=== PATIENT | female | born 1955 | race Caucasian/White ===

== ENCOUNTER 2020-05-28 15:54 | Outpatient (REF) | payer OTHER, SELFPAY ==
[2020-05-28 17:04] LABS: Hematocrit 42.5 % (37-47); Mean Corpuscular HGB Conc 32.9 g/dl (31.0-35.0); Mean Corpuscular Hemoglobin 29.7 pg (27.0-33.0); Mean Platelet Volume 11.9 fL (9.4-12.3); Platelet Count 345 X10*3/uL (160-400); Red Blood Count 4.72 X10*6/uL (4.20-5.50); White Blood Count 10.4 X10*3/uL (4.8-10.8)
[2020-05-28 17:31] LABS: Anion Gap 12 (12-20); Blood Urea Nitrogen 10 mg/dL (9-16); Calcium 9.7 mg/dL (8.4-10.2); Carbon Dioxide 25 mmol/L (22-29); Chloride 107 mmol/L (96-108); Estimated Glomerular Filt Rate > 60; Glucose Random 83 mg/dL (60-115); Magnesium 2.2 mg/dL (1.6-2.6); Potassium 4.1 mmol/l (3.3-5.1); Sodium 140 mmol/L (135-145)
[2020-05-28 17:53] LABS: TSH reflex Free T4 8.71 mIU/mL (0.32-4.0)
[2020-05-28 18:26] LABS: Free T4 (Free Thyroxine) 0.91 ng/dL (0.71-1.85)
== END 2020-05-28 15:55 | disposition home or self-care (01) ==
LOC: HO.LAB 15:54
PROVIDERS: Internal Medicine; PCP Nurse Practitioner Family; Visit Provider Internal Medicine
DX: Z20.828 Contact with and (suspected) exposure to other viral communicable diseases (principal); R53.81 Other malaise; R53.83 Other fatigue
CPT/HCPCS: 36415; 80048; 83735; 84439; 84443; 85027; 87635

== ENCOUNTER 2020-09-04 08:41 | Outpatient (REF) | payer OTHER, SELFPAY ==
[2020-09-04 08:56] LABS: COVID-19 Test Positive (Negative); IDNOW Serial# 55D5AD1C
== END 2020-09-04 08:42 | disposition home or self-care (01) ==
LOC: HO.EMPCOV 08:41
PROVIDERS: Visit Provider Internal Medicine
DX: Z20.822 Contact with and (suspected) exposure to COVID-19 (principal)
CPT/HCPCS: 36415; 87635; C9803

== ENCOUNTER 2020-11-25 07:27 | Outpatient (REF) | payer OTHER, SELFPAY ==
[2020-11-25 10:49] LABS: Glucose Urine UA NEG (NEG); Leukocyte Esterase Urine NEG (NEG); Nitrite Urine NEG (NEG); PH 5.5 (5.0-8.0); Specific Gravity - Urine 1.025 (1.005-1.025); Urine Blood 1+ (NEG); Urine Ketones NEG (NEG); Urine Protein NEG (NEG-TRACE)
[2020-11-25 11:10] LABS: Appearance Urine CLEAR; Color Urine YELLOW
[2020-11-25 11:44] LABS: RBC Urine 0 /HPF (0); Squamous Epithelial Cell Urine 1+ /LPF
== END 2020-11-25 07:28 | disposition home or self-care (01) ==
LOC: HO.10HDL 07:27
PROVIDERS: Visit Provider Nurse Practitioner Family
DX: R30.0 Dysuria (principal)
CPT/HCPCS: 81001; 81003

== ENCOUNTER 2021-02-03 07:48 | Day surgery (SDC) | payer OTHER, SELFPAY ==
[2021-01-28 16:29] VITALS: BMI 28.3
--- NOTE | 2021-01-29 14:55 | MHC.SHP ---
Pre-Procedural Eval Section A The patient is an INPATIENT: No The History & Physical has been completed within 30 days and I have reviewed it.: Yes Section B Chief Complaint: Cataract Right Eye Allergies: Allergies Allergy/AdvReac Type Severity Reaction Status Date / Time gluten [Gluten] Allergy Severe Gastrointestinal Verified 01/28/21 16:28 Upset Penicillins Allergy Intermediate Rash Verified 01/28/21 16:28 Sulfa (Sulfonamide Allergy Intermediate Rash Verified 01/28/21 16:28 Antibiotics) Codeine Phosphate Allergy Intermediate Nausea Uncoded 01/28/21 16:28 Plan Diagnosis/Plan: Unchanged I have reviewed the history and physical and performed a pertinent physical examination on my patient. No changes have occurred unless specified.
--- NOTE | 2021-01-31 15:05 | P.CONAN_ITS ---
Documented by User: Selin Madonan 01/31/21 15:05 HPI - Anesthesia Eval Consult details Narrative: 65yo F for Right Cataract Extraction IOL Insertion PCP cleared No previous cataract on record PMFSH Past Medical History Medical History Anxiety Celiac disease COVID-19 vaccine series completed GERD (gastroesophageal reflux disease) Low back pain Restless leg syndrome Surgical History Surgical History History of back surgery Hx of appendectomy Hx of foot surgery Hx of tonsillectomy Social History Social History Patient Tobacco Use Status: Former Tobacco user Quit Date: 1994 Use of substances other than those prescribed or required for medical reasons: No Are you DNR?: No Advance Directives: No Advance Directives Information Provided: No Advance Directives on File: No Meds Allergies Allergy/AdvReac Type Severity Reaction Status Date / Time gluten [Gluten] Allergy Severe Gastrointestinal Verified 01/28/21 16:28 Upset Penicillins Allergy Intermediate Rash Verified 01/28/21 16:28 Sulfa (Sulfonamide Allergy Intermediate Rash Verified 01/28/21 16:28 Antibiotics) Codeine Phosphate Allergy Intermediate Nausea Uncoded 01/28/21 16:28 Home Medications Medication Instructions Recorded Confirmed Last Taken Type ibuprofen 1 tab PO TID PRN 01/28/21 01/28/21 Unknown History latanoprost 1 drp OPHTHALMIC (EYE) BEDTIME 01/28/21 01/28/21 Unknown History levothyroxine [Synthroid] 1 tab PO DAILY 01/28/21 01/28/21 02/03/21 History lidocaine patch TOPICAL 01/28/21 Unknown History lorazepam 1 tab PO BID PRN 01/28/21 01/28/21 Unknown History pramipexole 0.5 tab PO BEDTIME 01/28/21 01/28/21 02/03/21 History Exam Exam Date and Time: January 31, 2021 1505 Height,Weight and Vital Signs: Height 5 ft 4 in Weight 74.843 kg Assessment and Plan Assessment Anesthesia Assessment: Chart Reviewed Documented by User: Gael Panda 02/03/21 09:47 [facility] Past Medical History Medical History Anxiety Celiac disease COVID-19 vaccine series completed GERD (gastroesophageal reflux disease) Low back pain Restless leg syndrome Surgical History Surgical History History of back surgery Hx of appendectomy Hx of foot surgery Hx of tonsillectomy Social History Social History Patient Tobacco Use Status: Former Tobacco user Quit Date: 1994 Use of substances other than those prescribed or required for medical reasons: No Are you DNR?: No Advance Directives: No Advance Directives Information Provided: No Advance Directives on File: No Meds Allergies Allergy/AdvReac Type Severity Reaction Status Date / Time gluten [Gluten] Allergy Severe Gastrointestinal Verified 01/28/21 16:28 Upset Penicillins Allergy Intermediate Rash Verified 01/28/21 16:28 Sulfa (Sulfonamide Allergy Intermediate Rash Verified 01/28/21 16:28 Antibiotics) Codeine Phosphate Allergy Intermediate Nausea Uncoded 01/28/21 16:28 Home Medications Medication Instructions Recorded Confirmed Last Taken Type ibuprofen 1 tab PO TID PRN 01/28/21 01/28/21 Unknown History latanoprost 1 drp OPHTHALMIC (EYE) BEDTIME 01/28/21 01/28/21 Unknown History levothyroxine [Synthroid] 1 tab PO DAILY 01/28/21 01/28/21 02/03/21 History lidocaine patch TOPICAL 01/28/21 Unknown History lorazepam 1 tab PO BID PRN 01/28/21 01/28/21 Unknown History pramipexole 0.5 tab PO BEDTIME 01/28/21 01/28/21 02/03/21 History Exam Airway Mallampati Class: II TM Dist: >3cm Neck ROM: Full Loose/Missing/Broken Teeth: No Heart: rrr+[id number] Lungs: cta b/l Assessment and Plan Assessment Anesthesia Assessment: Anesthesia Plan Discussed, PAT Visit and Chart Reviewed Final Anesthetic Review NPO: Yes ASA Class: II Final Preanesthetic Review: No Changes in Pt Med Stat, Meds/Allgs Chart Reviewed, Consent Obtained/Reviewed and Anes Risks/Benef Reviewed Patient Risk: Low Procedure Risk: Low Assessment/Block/Sedation in SS: Assess/Block/Sedation-SS Anesthetic Plan Anesthetic Plan: MAC: and Agree w/ Assess. and Plan Disposition: Standard PACU
[2021-02-03 09:15] VITALS: BP 125/74; PULSE 76; RESP 16; TEMP 36.9; O2SAT 96
[2021-02-03] MEDS: Lactated Ringers 500 ML 50 ML IV (09:31)
[2021-02-03] MEDS: Tetracaine HCl/PF 0.5% Oph Sol 4 ML DROPS 1 DROP EYE-RIGHT (09:31)
[2021-02-03] MEDS: Tropicamide 1 % Ophth Sol 3 ML BTL 1 DROP EYE-RIGHT ×3 (09:33→09:46)
[2021-02-03] MEDS: Phenylephrine HCL 2.5% Oph SoL 2 ML BOTTLE 1 DROP EYE-RIGHT ×3 (09:38→09:48)
--- NOTE | 2021-02-03 10:11 | HO.PNOPHT ---
Ophthalmology Procedure Procedure Date of Service: 02/03/21 Ophthalmology Viscoelastic: Healjin Briceñot Dual Pack Pro Ophthalmology Lenses: TECHAN [id number] (24) Procedure Notes: PREOPERATIVE DIAGNOSIS: Decreased visual acuity right eye secondary to cataract POSTOPERATIVE DIAGNOSIS: Same PROCEDURE: Right cataract extraction with intraocular lens insertion SURGEON: Alberto Tran M.D. ANESTHESIA: Topical/MAC ESTIMATED BLOOD LOSS: None COMPLICATIONS: None After obtaining informed consent, the patient was brought to the operating room suite and placed in the supine position. After adequate sedation per anesthesia, topical drops of Tetracaine were given to the right eye. The eye was then prepped and draped in the usual sterile fashion. The operating room microscope was then positioned over the operative eye and a lid speculum placed. A paracentesis was created. Viscoelastic was then instilled into the anterior chamber. A three plane incision was then created temporally, utilizing a 2.85 mm keratome. Capsulotomy forceps were then utilized to create a circular tear capsulotomy. Hydrodissection and hydrodelineation were carried out until adequate mobilization of the nucleus occurred. Phacoemulsification was then utilized to remove the dense central nucleus followed by removal of the cortical material utilizing the automated aspiration irrigation unit. Viscoelastic was instilled into the posterior capsular bag followed by placement of a posterior chamber intraocular lens without difficulty. The residual Viscoelastic was then removed utilizing the automated IA machine. The wound was checked and found to be watertight. The patient tolerated the procedure well and the lid speculum was removed. Intracameral injection of Vigamox 0.1 mL followed by a subtenon injection of Kenalog-40 0.2 mL were administered. The patient will be seen in the a.m.
[2021-02-03 10:32] VITALS: BP 104/77; PULSE 83; RESP 16; TEMP 37; O2SAT 95
[2021-02-03] MEDS: ondansetron HCL 4 MG/2 ML VIAL IVPUSH (10:40)
[2021-02-03 10:45] VITALS: PULSE 79; RESP 16; TEMP 37; O2SAT 95
[2021-02-03 10:48] VITALS: BP 114/76; PULSE 80; RESP 16; O2SAT 97
== END 2021-02-03 10:50 | disposition home or self-care (01) ==
PROVIDERS: PCP Nurse Practitioner Family; Visit Provider Ophthalmology
PROC: (CPT 66985; principal; 2021-02-03 11:00)
DX: H25.11 Age-related nuclear cataract, right eye (principal); Z88.0 Allergy status to penicillin; Z88.2 Allergy status to sulfonamides
CPT/HCPCS: 66984; J2250; J2405; J3010; J3300; V2632

== ENCOUNTER → 2021-03-06 08:03 | Outpatient (BNVA) | payer OTHER, SELFPAY | PROVIDERS: PCP Nurse Practitioner Family; Visit Provider Physician Assistant | DX: Z12.11 Encounter for screening for malignant neoplasm of colon (principal) ==

== ENCOUNTER 2021-03-13 09:08 | Inpatient (IN) | payer OTHER, SELFPAY ==
[2021-03-13] VITALS (8 sets, daily range): BP systolic 119–129; BP diastolic 73–85; PULSE 68–83; RESP 13–22; TEMP 36.8–36.9; O2SAT 96–98; BMI 29.7
--- NOTE | 2021-03-13 | ECG_ITS ---
Test Reason : CHEST PAIN Blood Pressure : / mmHG Vent. Rate : 081 BPM Atrial Rate : 081 BPM P-R Int : 154 ms QRS Dur : 074 ms QT Int : 374 ms P-R-T Axes : 059 035 046 degrees QTc Int : 434 ms Normal sinus rhythm with sinus arrhythmia Normal ECG When compared with ECG of 25-OCT-2018 16:53, No significant change was found Referred By: Generic ED Physician Electronically Signed By:AREN PATHAK MD
--- NOTE | ~2021-03-13 | XR_ITS ---
EXAMINATION: XR CHEST CLINICAL INFORMATION: Chest pain. COMPARISON: Chest 09/09/2019 TECHNIQUE: Frontal view of the chest was obtained. FINDINGS: No significant abnormality is noted involving the heart, lungs, mediastinum, bony thorax or soft tissues. XR/XR chest 1V IMPRESSION: Unremarkable chest examination.
--- NOTE | 2021-03-13 09:38 | ED.CHESTPAIN ---
HPI - Chest Pain General Chief Complaint: Chest Pain Stated Complaint: chest pain Time Seen by Provider: 03/13/21 09:37 History of Present Illness HPI narrative: Patient is a 65-year-old female presents today with having chest pain going to her neck with sore shortness of breath. The pain is pressure-like. It is worse with going up the stairs. Improved with rest. Patient never had any kind of cardiac risk stratification done in the past. No history of diabetes. No history of hypertension. No history of smoking. No history of [place]. No history of recent stress test. No family history of coronary artery disease. No history of recreational drug use. Patient is from home. Pains been on and off since Wednesday. Related Data Home Medications Medication Instructions Recorded Confirmed ibuprofen 1 tab PO TID PRN 01/28/21 03/13/21 latanoprost 1 drp OPHTHALMIC (EYE) BEDTIME 01/28/21 03/13/21 levothyroxine [Synthroid] 1 tab PO DAILY 01/28/21 03/13/21 lidocaine patch TOPICAL 01/28/21 03/13/21 lorazepam 1 tab PO BID PRN 01/28/21 03/13/21 pramipexole 0.5 tab PO BEDTIME 01/28/21 03/13/21 omeprazole 20 mg capsule,delayed 20 mg PO DAILY 03/06/21 03/13/21 release Previous Rx's Medication Instructions Recorded bisacodyl 5 mg tablet,delayed 10 mg PO ONCE 1 Days #2 tab 03/06/21 release polyethylene glycol 3350 17 238 g PO ONCE 1 Days #238 g 03/06/21 gram/dose oral powder Allergies Allergy/AdvReac Type Severity Reaction Status Date / Time gluten [Gluten] Allergy Severe Gastrointestinal Verified 03/13/21 08:31 Upset Penicillins Allergy Intermediate Rash Verified 03/13/21 08:31 Sulfa (Sulfonamide Allergy Intermediate Rash Verified 03/13/21 08:31 Antibiotics) Codeine Phosphate Allergy Intermediate Nausea Uncoded 03/13/21 08:31 Review of Systems Review of Systems: Positive chest pain Positive shortness of breath No nausea no vomiting All systems reviewed otherwise negative PMFSH Past Medical History Attestation statement: The following information was validated with the patient. Medical History Anxiety Celiac disease COVID-19 vaccine series completed GERD (gastroesophageal reflux disease) Hypothyroidism Low back pain Restless leg syndrome Surgical History History of back surgery Hx of appendectomy Hx of foot surgery Hx of right cataract extraction Hx of tonsillectomy Family History Family History Daughter Celiac disease Social History Social History Household Members Other:: single- 3 kids Alcohol intake: current Alcohol intake frequency: a few times a month Alcohol type: hard liquor Patient Tobacco Use Status: Former Tobacco user Quit Date: 1994 Use of substances other than those prescribed or required for medical reasons: No Advance Directives: Yes Advance Directives Information Provided: Yes Advance Directives on File: No 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 Oriented X3. No acute distress. Eyes: Pupils equal, round and reactive to light. ENT: Pharynx normal. Neck: Normal inspection. Neck supple. No lymph nodes noted. No crepitus CVS: Normal heart rate and rhythm. Pulses normal. Normal S1 and S2 Respiratory: No respiratory distress. Breath sounds normal. No Wheezing. No rales Abdomen: Soft and nontender. No rigidity. No distention. good BS x4 Skin: Skin warm and dry. Normal skin color. Normal skin turgor. Extremities: No lower extremity edema. Neurovascular intact to all extremities. No Lacerations. No Rash Neuro: Oriented X 3. No motor deficit. No sensory deficit. Moving all extermities. No slurred speech MDM - Chest Pain MDM Narrative Medical decision making narrative: Patient's cardiac enzyme was negative. But history consistent with having unstable angina having chest pain that radiates to her neck and also feeling short of breath feeling sweaty. Patient is currently chest pain-free. Patient's case discussed with cardiology. Agree with plan of admission. Case discussed with hospitalist team. Agree with plan of giving aspirin. Currently in guarded condition. Differential Diagnosis Differential diagnosis: Likely unstable angina pectoris Medical Records Data Attestation: I reviewed the patient's medical records. Lab Data Attestation: I reviewed the patient's lab results. Result diagrams: 03/13/21 09:57 03/13/21 09:57 Labs: Lab Results 03/13/21 03/13/21 03/13/21 Range/Units 09:57 09:57 09:57 WBC 7.6 (4.8-10.8) X10*3/uL RBC 4.82 (4.20-5.50) X10*6/uL Hgb 13.9 (12.0-16.0) g/dl Hct 42.6 (37-47) % MCV 88.4 (80-98) fL MCH 28.8 (27.0-33.0) pg MCHC 32.6 (31.0-35.0) g/dl RDW 14.0 (11.0-16.0) % Plt Count 310 (160-400) X10*3/uL MPV 11.3 (9.4-12.3) fL Immature Gran % (Auto) 0.4 (0.0-0.4) % Neut % (Auto) 70.4 (45-73) % Lymph % (Auto) 19.8 L (20-40) % [place] % (Auto) 7.5 (2-11) % Eos % (Auto) 1.2 (0-4) % Baso % (Auto) 0.7 (0-2) % Lymph # (Auto) 1.5 (1.2-4.9) X10*3/uL [place] # (Auto) 0.6 (0.1-1.2) X10*3/uL Eos # (Auto) 0.1 (0.0-0.4) X10*3/uL Baso # (Auto) 0.1 (0.0-0.2) X10*3/uL Abs Immat Gran (auto) 0.03 (0.00-0.03) X10*3/uL Absolute Neuts (auto) 5.4 (2.0-8.3) X10*3/uL Absolute Nucleated RBC 0.000 (0.0-0.012) X10*3/uL Nucleated RBC % (auto) 0.0 (0.0-0.2) /100WBC Sodium 141 (135-145) mmol/L Potassium 4.2 (3.3-5.1) mmol/L Chloride 108 (96-108) mmol/L Carbon Dioxide 26 (22-29) mmol/L Anion Gap 11 L (12-20) BUN 11 (9-16) mg/dL Creatinine 0.81 (0.5-1.4) mg/dL Estim Creat Clear Calc 72.0 Estimated GFR > 60 Random Glucose 91 (60-115) mg/dL Calcium 9.9 (8.4-10.2) mg/dL Troponin I High Sens < 3.5 (<3.5-17.0) ng/L COVID-19 (VARUN) (Negative) COVID-19 Clin Com 03/13/21 Range/Units 11:32 WBC (4.8-10.8) X10*3/uL RBC (4.20-5.50) X10*6/uL Hgb (12.0-16.0) g/dl Hct (37-47) % MCV (80-98) fL MCH (27.0-33.0) pg MCHC (31.0-35.0) g/dl RDW (11.0-16.0) % Plt Count (160-400) X10*3/uL MPV (9.4-12.3) fL Immature Gran % (Auto) (0.0-0.4) % Neut % (Auto) (45-73) % Lymph % (Auto) (20-40) % [place] % (Auto) (2-11) % Eos % (Auto) (0-4) % Baso % (Auto) (0-2) % Lymph # (Auto) (1.2-4.9) X10*3/uL [place] # (Auto) (0.1-1.2) X10*3/uL Eos # (Auto) (0.0-0.4) X10*3/uL Baso # (Auto) (0.0-0.2) X10*3/uL Abs Immat Gran (auto) (0.00-0.03) X10*3/uL Absolute Neuts (auto) (2.0-8.3) X10*3/uL Absolute Nucleated RBC (0.0-0.012) X10*3/uL Nucleated RBC % (auto) (0.0-0.2) /100WBC Sodium (135-145) mmol/L Potassium (3.3-5.1) mmol/L Chloride (96-108) mmol/L Carbon Dioxide (22-29) mmol/L Anion Gap (12-20) BUN (9-16) mg/dL Creatinine (0.5-1.4) mg/dL Estim Creat Clear Calc Estimated GFR Random Glucose (60-115) mg/dL Calcium (8.4-10.2) mg/dL Troponin I High Sens (<3.5-17.0) ng/L COVID-19 (VARUN) Negative (Negative) COVID-19 Clin Com See Note Discharge Plan Discharge Clinical Impression: Angina pectoris Patient Disposition: Admitted As Inpatient Prescriptions: No Action latanoprost 0.005 % drops 1 drp ophthalmic (eye) BEDTIME RF: 0 pramipexole 0.5 mg tablet 0.5 tab PO BEDTIME RF: 0 levothyroxine [Synthroid] 88 mcg tablet 1 tab PO DAILY RF: 0 lorazepam 0.5 mg tablet 1 tab PO BID PRN (Reason: anxiety) RF: 0 lidocaine 5 % adhesive patch,medicated topical RF: 0 ibuprofen 600 mg tablet 1 tab PO TID PRN (Reason: pain) RF: 0 polyethylene glycol 3350 [Miralax] 17 gram/dose powder 238 g PO ONCE 1 Days Qty: 238 RF: 0 bisacodyl [Dulcolax (bisacodyl)] 5 mg tablet,delayed release (DR/EC) 10 mg PO ONCE 1 Days Qty: 2 RF: 0 omeprazole 20 mg capsule,delayed release(DR/EC) 20 mg PO DAILY RF: 0
[2021-03-13] MEDS: Aspirin 81 MG TAB.CHEW 324 MG PO (10:01)
[2021-03-13 10:02] LABS: MANUAL DIFF FLAG NO
[2021-03-13 10:05] LABS: Basophils Absolute Auto 0.1 X10*3/uL (0.0-0.2); Basophils Percent Auto 0.7 % (0-2); Eosinophils Absolute Auto 0.1 X10*3/uL (0.0-0.4); Eosinophils Percent Auto 1.2 % (0-4); Hematocrit 42.6 % (37-47); Hemoglobin 13.9 g/dl (12.0-16.0); Imm Gran Abs Auto 0.03 X10*3/uL (0.00-0.03); Imm Gran Pct Auto 0.4 % (0.0-0.4); Lymphocytes Absolute Auto 1.5 X10*3/uL (1.2-4.9); Lymphocytes Percent Auto 19.8 % (20-40); Mean Corpuscular HGB Conc 32.6 g/dl (31.0-35.0); Mean Corpuscular Hemoglobin 28.8 pg (27.0-33.0); Mean Corpuscular Volume 88.4 fL (80-98); Mean Platelet Volume 11.3 fL (9.4-12.3); Monocytes Absolute Auto 0.6 X10*3/uL (0.1-1.2); Monocytes Percent Auto 7.5 % (2-11); Neutrophils Absolute Auto 5.4 X10*3/uL (2.0-8.3); Neutrophils Percent Auto 70.4 % (45-73); Platelet Count 310 X10*3/uL (160-400); Red Blood Count 4.82 X10*6/uL (4.20-5.50); White Blood Count 7.6 X10*3/uL (4.8-10.8)
[2021-03-13 10:32] LABS: Anion Gap 11 (12-20); Blood Urea Nitrogen 11 mg/dL (9-16); Calcium 9.9 mg/dL (8.4-10.2); Carbon Dioxide 26 mmol/L (22-29); Chloride 108 mmol/L (96-108); Estimated Glomerular Filt Rate > 60; Glucose Random 91 mg/dL (60-115); Potassium 4.2 mmol/L (3.3-5.1); Sodium 141 mmol/L (135-145)
[2021-03-13 10:36] LABS: Troponin-I High Sensitivity < 3.5 ng/L (<3.5-17.0)
--- NOTE | 2021-03-13 10:48 | PC.NURSE ---
pt resting comfortably in bed, plan to be admitted to the hospital for observation r/t chest tightness. pt aware of plan.
[2021-03-13 11:51] LABS: COVID-19 Test Negative (Negative); IDNOW Serial# 9DD0AD1C
[2021-03-13] MEDS: Acetaminophen 325 MG TABLET 650 MG PO (12:55)
--- NOTE | 2021-03-13 14:14 | PHA.MEDREC ---
Pharmacy Consult ? Medication Reconciliation Pharmacy has completed the medication reconciliation. There are no remarkable issues for provider's attention. Inga Henderson, SjD
[2021-03-13 15:11] LABS: Troponin-I High Sensitivity < 3.5 ng/L (<3.5-17.0)
--- NOTE | 2021-03-13 16:13 | PM.IMHP ---
History of Present Illness Date of Service: 03/13/21 Chief Complaint: Chest pain 65-year-old of female with history of anxiety and hypothyroidism-she said she is having chest pain on and off since Wednesday, chest pain is pressure type, radiated to the jaw area, more with exertion, last episode was this morning at PCP office., she says she has resting elevate the pain. Also says that she has some mild indigestion. She also says that is recently going through lot of work stress. A PCP sent the for the chest pain evaluation-patient was seen by ED physician and found to have negative troponin and EKG seems fine but the chest pain seems more cardiac -admitted the patient for further evaluation. Denies any shortness of breath or abdominal pain or fever or chills or cough or phlegm or dizziness or weakness or numbness or any urinary complaints. Past medical history: Anxiety Hypothyroidism Restless leg syndrome GERD Celiac disease COVID-19 vaccine series completed as per pcp note. Surgical History: History of back surgery Hx of appendectomy Hx of foot surgery Hx of tonsillectomy Family History : Daughter Celiac disease Social History: Household Members Other:: single- 3 kids Alcohol intake: current Alcohol intake frequency: 0-2 drinks per day Denies any smoking or recreation drug use. Silverio hernandez allergy [facility] Medical History Anxiety Celiac disease COVID-19 vaccine series completed GERD (gastroesophageal reflux disease) Hypothyroidism Low back pain Restless leg syndrome Family History Daughter Celiac disease Surgical History History of back surgery Hx of appendectomy Hx of foot surgery Hx of right cataract extraction Hx of tonsillectomy Social History Household Members: Children Household Members Other:: Son Housing: House Do you presently have visiting nurse or other home services: No Alcohol intake: current Alcohol intake frequency: a few times a month Alcohol type: hard liquor Patient Tobacco Use Status: Former Tobacco user Quit Date: 1994 Advance Directives Date on File: 03/14/21 service: No Current occupational status: employed 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 PO DAILY [facility] Atorvastatin Calcium 20 mg 03/14/21 09:00 Atorvastatin Calcium 20 Mg Tablet PO DAILY [facility] Enoxaparin Sodium 40 mg 03/13/21 13:45 03/13/21 15:01 Enoxaparin Sodium 40 Mg/0.4 Ml Syringe SUBCUT Not Given Q24H [facility] Latanoprost 1 drop 03/13/21 21:00 Latanoprost 0.005 % Ophth Sonja 2.5 Ml Drops EYE-LEFT BEDTIME [facility] Levothyroxine Sodium 88 mcg 03/14/21 06:00 Levothyroxine Sodium 88 Mcg Tablet PO DAILY@0600 [facility] Lidocaine 1 patch 03/13/21 14:41 Lidocaine 4 % Patch Adh..Patch TRANSDERMA DAILY PRN Pain Lorazepam 0.5 mg 03/13/21 14:37 Lorazepam 0.5 Mg Tablet PO BID PRN anxiety Metoprolol Tartrate 12.5 mg 03/13/21 21:00 Metoprolol Tartrate 12.5 Mg Halftab PO BID [facility] Protocol Omeprazole 20 mg 03/14/21 06:30 Omeprazole 20 Mg Capsule. PO DAILY@0630 [facility] Pharmacy Consult 1 each 03/13/21 13:47 Consult Rx Perform Med Rec MISCELLANE ONCE PRN Consult order Pramipexole Dihydrochloride 0.5 mg 03/13/21 21:00 Pramipexole Di-Hcl 0.25 Mg Tablet PO BEDTIME [facility] Sodium Chloride 3 ml 03/13/21 16:00 0.9 % Sodium Chloride Flush 3 Ml Syringe IVFLUSH QSHIFT [facility] Home Medications Medication Instructions Recorded Confirmed Last Taken Type latanoprost 0.005 % eye drops 1 drp OPHTHALMIC-LEFT BEDTIME 01/28/21 03/13/21 03/12/21 History levothyroxine 88 mcg tablet 1 tab PO DAILY 01/28/21 03/13/21 03/13/21 History (Synthroid) lidocaine 5 % topical patch 1 patch TOPICAL DAILY PRN 01/28/21 03/13/21 Unknown History lorazepam 0.5 mg tablet 1 tab PO BID PRN 01/28/21 03/13/21 Unknown History pramipexole 0.5 mg tablet 0.5 mg PO BEDTIME 01/28/21 03/13/21 03/12/21 History omeprazole 20 mg capsule,delayed 20 mg PO DAILY 03/06/21 03/13/21 03/13/21 History release Physical Exam Vital Signs and Narrative: Vital Signs: Last Vital Signs Temp 98.4 F 03/13/21 13:19 Pulse 70 03/13/21 13:19 Resp 18 03/13/21 13:19 BP 125/79 03/13/21 13:19 Pulse Ox 98 03/13/21 13:19 Body Mass Index 29.7 Physical exam: Appearance: Alert. Oriented X3. No acute distress. Eyes: eomi,perrla. Neck: Normal inspection. Neck supple. No lymph nodes noted. No crepitus CVS: Normal heart rate and rhythm. Pulses normal. Normal S1 and S2 Respiratory: No respiratory distress. Breath sounds normal. No Wheezing. No rales Abdomen: Soft and nontender. No rigidity. No distention. bs present. Skin: Skin warm and dry. no rash , no edema , pulses present. Extremities: No lower extremity edema. Neuro: Oriented X 3. No motor deficit. No sensory deficit. Moving all extermities. No slurred speech Results Labs CBC and Chem 7: 03/13/21 09:57 03/13/21 09:57 Labs: Laboratory Results - last 24 hr 03/13/21 03/13/21 03/13/21 09:57 09:57 09:57 MCV 88.4 MCH 28.8 MCHC 32.6 RDW 14.0 Plt Count 310 MPV 11.3 Immature Gran % (Auto) 0.4 Neut % (Auto) 70.4 Lymph % (Auto) 19.8 L [place] % (Auto) 7.5 Eos % (Auto) 1.2 Baso % (Auto) 0.7 Lymph # (Auto) 1.5 [place] # (Auto) 0.6 Eos # (Auto) 0.1 Baso # (Auto) 0.1 Abs Immat Gran (auto) 0.03 Absolute Neuts (auto) 5.4 Absolute Nucleated RBC 0.000 Nucleated RBC % (auto) 0.0 Anion Gap 11 L Estim Creat Clear Calc 72.0 Estimated GFR > 60 Random Glucose 91 Calcium 9.9 Troponin I High Sens < 3.5 COVID-19 (VARUN) COVID-19 Clin Com 03/13/21 03/13/21 11:32 14:32 MCV MCH MCHC RDW Plt Count MPV Immature Gran % (Auto) Neut % (Auto) Lymph % (Auto) [place] % (Auto) Eos % (Auto) Baso % (Auto) Lymph # (Auto) [place] # (Auto) Eos # (Auto) Baso # (Auto) Abs Immat Gran (auto) Absolute Neuts (auto) Absolute Nucleated RBC Nucleated RBC % (auto) Anion Gap Estim Creat Clear Calc Estimated GFR Random Glucose Calcium Troponin I High Sens < 3.5 COVID-19 (VARUN) Negative COVID-19 Clin Com See Note Imaging Radiologist's Impressions: Impressions Chest X-Ray 03/13/21 09:37 IMPRESSION: Unremarkable chest examination. Assessment and Plan (1) Chest pain: Qualifiers: Chest pain type: unspecified Qualified Code(s): R07.9 - Chest pain, unspecified Status: Acute 1. Chest pain: 1st troponin negative, in no EKG changes, will check another troponin Added aspirin, statin, small dose beta-preet Cardio evaluation Patient if patient develops another episode of chest pain please repeat troponin and EKG. 2. hypothyroidism: Continue levothyroxine. 3.Anxiety: Continue home dose of lorazepam. 4. GERD: Continue omeprazole. DVT prophylaxis with Lovenox. Above management discussed with patient in detail length she understand and agree agreement with above plan, she may need stress test in the morning. She is full code. She Quality Stroke Does the patient have a stroke diagnosis?: No VTE Prior VTE?: No VTE Risk Level:: Medical - moderate - high VTE Device Contraindication: N/A - Device Ordered VTE Drug Contraindication: N/A - Med Ordered
[2021-03-13] MEDS: Ibuprofen 400 MG TABLET PO (17:13)
[2021-03-13] MEDS: 0.9 % Sodium Chloride Flush 3 ML SYRINGE IVFLUSH ×2 (17:15→23:54)
--- NOTE | 2021-03-13 18:47 | PC.NURSE ---
pt has unplugged herself from her fluids, cardiac monitoring and BP cuff, she wandered to another pts room. she is confused, paranoid and anxious. pt reports not knowing anyone here and feeling scared pt also was looking for her bag which was sitting on the bed with her. she reported to needed to leave, and was going to drive home . pt proceeded to strip off her willem and put on her street clothes. ALEJANDRA Valdez called pts BF and spoke with him about talking with the pt. he called the pt and reassured her. pt is now getting changed back into a willem. she is confused, slightly unstable on her feet. reports feeling very anxious and paranoid. will contact MD and update.
[2021-03-13] MEDS: Pramipexole Di-HCL 0.25 MG TABLET 0.5 MG PO (21:06)
[2021-03-13] MEDS: Latanoprost 0.005 % Ophth Sol 2.5 ML DROPS 1 DROP EYE-LEFT (21:08)
--- NOTE | 2021-03-13 23:19 | PC.NURSE ---
nurse to nurse report given to Yasmeen ROBERTS
[2021-03-14] VITALS: BP 123/65; PULSE 68; RESP 18; O2SAT 98
--- NOTE | 2021-03-14 | CA_ITS ---
Acquisition Time: 2021-03-14 10:43:49 Total Exercise Time: 00:06:30 Test Indications: CP Medications: SEE CHART Protocol: GENARO Max HR: 160 BPM 101% of Pred: 157 BPM Max BP: 176/082 mmHG Max Work Load: 7.7 METS Exercise stress test with exercise 6 min 30 sec of Genaro protocol, with mild sob, 2-3/10 ache both sides of jaw, with no chest discomfort, with isolated PVCs, with normotensive response to exercise, without EKG changes meeting criteria for ischemia. In recovery her jaw ache resolved after 4 minutes. Test reviewed with Dr Malik. Referred By: Phuc Malik Overread By: JAIR GARCÍA
[2021-03-14] MEDS: Acetaminophen 325 MG TABLET 650 MG PO ×2 (00:03→09:50)
[2021-03-14 04:00] VITALS: BP 119/69; PULSE 63; RESP 18; TEMP 36.5; O2SAT 98
[2021-03-14] MEDS: Levothyroxine Sodium 88 MCG TABLET PO (05:40)
[2021-03-14] MEDS: Omeprazole 20 MG CAPSULE.DR PO (05:40)
[2021-03-14 08:00] VITALS: BP 124/77; PULSE 63; RESP 20; TEMP 36.4; O2SAT 97
--- NOTE | 2021-03-14 08:47 | MHC.CM.PN ---
CM met with Patient at bedside. Patient lives in a house with her 15 year old Son and she works for [employer]. Patient is functionally independent, her goal is home/no services and CM has initiated and will follow for dc planning. PCP/Dr. Rachna Bernard.
[2021-03-14 09:49] VITALS: BP 124/77; PULSE 63
[2021-03-14] MEDS: 0.9 % Sodium Chloride Flush 3 ML SYRINGE IVFLUSH (09:49)
[2021-03-14] MEDS: Atorvastatin Calcium 20 MG TABLET PO (09:49)
[2021-03-14] MEDS: Aspirin Enteric Coated 81 MG TABLET.DR PO (09:49)
--- NOTE | 2021-03-14 10:04 | P.CONCA_ITS ---
Assessment and Plan (1) Crescendo angina: Status: Acute Patient presents with symptoms classic for crescendo angina with the last week suggestive of unstable angina with low risk features with no abnormal troponins or EKG changes. She has multiple risk factors for the same including family history as well as hyperlipidemia. Would suggest a treadmill stress test given her baseline normal EKG. Based on the findings of stress test, will pursue treated with either further testing with invasive cardiac catheterization while hospitalized or pursue cardiac catheterization as an outpatient. Low like lihood that if stress test is negative, alternative causes of chest pain need to be evaluated especially GI given a prior history of acid reflux disease. Further treatment based on the finding of stress test. Thank you for allowing me to partake in the care. History of Present Illness History of Present Illness Date of Service: 03/14/21 Requesting physician: Saman Maria Consult reason: chest pain Chief complaint: chest pain Narrative: I was requested to see Yahaira in cardiology consultation today for symptoms of exertional chest discomfort. She is a pleasant 64-year-old woman with prior history of hypothyroidism, acid reflux disease, hyperlipidemia, untreated with family history for premature coronary artery disease on her father side. She present hospital with symptoms of exertional retrosternal chest pressure that started this Wednesday. Symptoms have always been exertional. Symptoms would happen when she would exert like climbing a flight of stairs or pushing herself associated with shortness of breath and epigastric discomfort with radiation to bilateral job. This got a concern yesterday at symptoms persisted and symptoms would subside depending on how severely she had exerted herself. She had never had any symptoms at rest. She came yesterday to the hospital initial EKG has no significant ischemia. Her serial troponins are negative suggestive no myocardial injury. She was admitted for observation. At rest she said she has had no recurrent symptoms. She was started on aspirin and statin and metoprolol therapy. However she has not got any metoprolol therapy this morning. Review of Systems Constitutional: Constitutional: Reports no additional constitutional complaints Cardiovascular: Cardiovascular: Reports chest pain with activity, Denies rapid heart rate, Denies lightheadedness, Denies Loss of Consciousness, Reports radiating jaw, neck or arm pain, Denies palpitations and Reports dyspnea on exertion Respiratory: Respiratory: Reports no additional respiratory complaints and Reports dyspnea on exertion Gastrointestinal: Gastrointestinal: Reports no additional gastrointestinal complaints Genitourinary: Genitourinary: Reports no additional female genitourinary compl aints Musculoskeletal: Musculoskeletal: Reports no additional musculoskeletal complaints Integumentary/Breasts: Skin/Breast: Reports system reviewed and no additional complaints, except as docu Neurologic: Reports system reviewed and no additional complaints, except as documented Psychiatric: Psychiatric: Reports no additional psychiatric complaints Endocrine: Endocrine: Reports no additional endocrine complaints and Denies palpitations Hematologic/Lymphatic: Hematologic/Lymphatic: Reports no additional hematologic/lymphatic complaints PMFSH Past Medical History Medical History Anxiety Celiac disease COVID-19 vaccine series completed GERD (gastroesophageal reflux disease) Hypothyroidism Low back pain Restless leg syndrome Family History Family History Daughter Celiac disease Surgical History Surgical History History of back surgery Hx of appendectomy Hx of foot surgery Hx of right cataract extraction Hx of tonsillectomy Social History Social History Household Members: Children Household Members Other:: Son Housing: House Do you presently have visiting nurse or other home services: No Alcohol intake: current Alcohol intake frequency: a few times a month Alcohol type: hard liquor Patient Tobacco Use Status: Former Tobacco user Quit Date: 1994 Use of substances other than those prescribed or required for medical reasons: No Currently Displaying Signs/Symptoms of Drug Intoxication Withdrawal: No Have you been hit, kicked, punched, or otherwise hurt by someone within the past year? If so, by whom?: No Do you feel safe in your current relationship?: No Is there a partner from a previous relationship who is making you feel unsafe now?: No Are you made to feel afraid or neglected: No Advance Directives: Yes Advance Directives Information Provided: Yes Advance Directives on File: No Advance Directives Date on File: 03/14/21 Do you have thoughts of harming others: None Do you have a plan to hurt others: No Plan Recently lost weight without trying: No Eating poorly because of decreased appetite: No Nutrition Risks: No Nutritional Risk Patient : No : No Poor oral hygiene: No service: No Current occupational status: employed 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 Meds Allergies Allergy/AdvReac Type Severity Reaction Status Date / Time gluten [Gluten] Allergy Severe Gastrointestinal Verified 03/13/21 08:31 Upset Penicillins Allergy Intermediate Rash Verified 03/13/21 08:31 Sulfa (Sulfonamide Allergy Intermediate Rash Verified 03/13/21 08:31 Antibiotics) Codeine Phosphate Allergy Intermediate Nausea Uncoded 03/13/21 08:31 Active Medications: Current Medications Generic Name Dose Route Start Last Admin Trade Name Chong PRN Reason Stop Dose Admin Acetaminophen 650 mg 03/14/21 09:37 03/14/21 09:50 Acetaminophen 325 Mg Tablet PO 650 mg Q6H PRN Administration Headache Aspirin 81 mg 03/14/21 09:00 03/14/21 09:49 Aspirin Enteric Coated 81 Mg Tablet. PO 81 mg DAILY [facility] Administration Atorvastatin Calcium 20 mg 03/14/21 09:00 03/14/21 09:49 Atorvastatin Calcium 20 Mg Tablet PO 20 mg DAILY [facility] Administration Enoxaparin Sodium 40 mg 03/13/21 13:45 03/13/21 15:01 Enoxaparin Sodium 40 Mg/0.4 Ml Syringe SUBCUT Not Given Q24H [facility] Latanoprost 1 drop 03/13/21 21:00 03/13/21 21:08 Latanoprost 0.005 % Ophth Sonja 2.5 Ml Drops EYE-LEFT 1 drop BEDTIME [facility] Administration Levothyroxine Sodium 88 mcg 03/14/21 06:00 03/14/21 05:40 Levothyroxine Sodium 88 Mcg Tablet PO 88 mcg DAILY@0600 [facility] Administration Lidocaine 1 patch 03/13/21 14:41 Lidocaine 4 % Patch Adh..Patch TRANSDERMA DAILY PRN Pain Lorazepam 0.5 mg 03/13/21 14:37 Lorazepam 0.5 Mg Tablet PO BID PRN anxiety Metoprolol Tartrate 12.5 mg 03/13/21 21:00 03/14/21 09:49 Metoprolol Tartrate 12.5 Mg Halftab PO Not Given BID [facility] Protocol Omeprazole 20 mg 03/14/21 06:30 03/14/21 05:40 Omeprazole 20 Mg Capsule. PO 20 mg DAILY@0630 [facility] Administration Pharmacy Consult 1 each 03/13/21 13:47 Consult Rx Perform Med Rec MISCELLANE ONCE PRN Consult order Pramipexole Dihydrochloride 0.5 mg 03/13/21 19:00 03/13/21 21:06 Pramipexole Di-Hcl 0.25 Mg Tablet PO 0.5 mg DAILY@1900 [facility] Administration Sodium Chloride 3 ml 03/13/21 16:00 03/14/21 09:49 0.9 % Sodium Chloride Flush 3 Ml Syringe IVFLUSH 3 ml QSHIFT ANNE Administration Home Medications Medication Instructions Recorded Confirmed Last Taken Type ibuprofen 1 tab PO TID PRN 01/28/21 03/13/21 Unknown History latanoprost 1 drp OPHTHALMIC-LEFT BEDTIME 01/28/21 03/13/21 03/12/21 History levothyroxine [Synthroid] 1 tab PO DAILY 01/28/21 03/13/21 03/13/21 History lidocaine 1 patch TOPICAL DAILY PRN 01/28/21 03/13/21 Unknown History lorazepam 1 tab PO BID PRN 01/28/21 03/13/21 Unknown History pramipexole 0.5 mg PO BEDTIME 01/28/21 03/13/21 03/12/21 History omeprazole 20 mg capsule,delayed 20 mg PO DAILY 03/06/21 03/13/21 03/13/21 History release Physical Exam Vital Signs: Vital Signs: Last Vital Signs Temp 97.5 F 03/14/21 08:00 Pulse 63 03/14/21 09:49 Resp 20 03/14/21 08:00 BP 124/77 03/14/21 09:49 Pulse Ox 97 03/14/21 08:00 Body Mass Index 29.7 Const: General: cooperative, comfortable, no acute distress, alert and awake Nutritional Appearance: overweight Orientation/consciousness: patient oriented x3 Limitations: no limitations HENMT: Head: Yes normocephalic and Yes atraumatic Neck: Neck: Yes trachea midline, Yes supple and Yes no JVD Resp: Effort & Inspection: normal respiratory effort Auscultation: clear to auscultation bilaterally Cardio: Jugular venous distension: no JVD Palpation: normal PMI Rate: regular rate Rhythm: regular rhythm Heart sounds: S1 normal heart sound present, S2 normal heart sound present, no click, no gallops, no murmurs and no rubs GI: Auscultation: normal bowel sounds Skin: General skin exam: no rashes or lesions noted Neuro: General: patient oriented x3 and no focal motor deficits Extrem: General: Yes no clubbing, cyanosis or edema Psych: Appearance: grossly normal Results Labs and Meds Result diagrams: 03/13/21 09:57 03/13/21 09:57 Lab results: Laboratory Results - last 24 hr 03/13/21 03/13/21 03/13/21 09:57 09:57 09:57 WBC 7.6 RBC 4.82 Hgb 13.9 Hct 42.6 MCV 88.4 MCH 28.8 MCHC 32.6 RDW 14.0 Plt Count 310 MPV 11.3 Immature Gran % (Auto) 0.4 Neut % (Auto) 70.4 Lymph % (Auto) 19.8 L [place] % (Auto) 7.5 Eos % (Auto) 1.2 Baso % (Auto) 0.7 Lymph # (Auto) 1.5 [place] # (Auto) 0.6 Eos # (Auto) 0.1 Baso # (Auto) 0.1 Abs Immat Gran (auto) 0.03 Absolute Neuts (auto) 5.4 Absolute Nucleated RBC 0.000 Nucleated RBC % (auto) 0.0 Sodium 141 Potassium 4.2 Chloride 108 Carbon Dioxide 26 Anion Gap 11 L BUN 11 Creatinine 0.81 Estim Creat Clear Calc 72.0 Estimated GFR > 60 Random Glucose 91 Calcium 9.9 Troponin I High Sens < 3.5 COVID-19 (VARUN) COVID-19 Clin Com 03/13/21 03/13/21 11:32 14:32 WBC RBC Hgb Hct MCV MCH MCHC RDW Plt Count MPV Immature Gran % (Auto) Neut % (Auto) Lymph % (Auto) [place]lands % (Auto) Eos % (Auto) Baso % (Auto) Lymph # (Auto) [place] # (Auto) Eos # (Auto) Baso # (Auto) Abs Immat Gran (auto) Absolute Neuts (auto) Absolute Nucleated RBC Nucleated RBC % (auto) Sodium Potassium Chloride Carbon Dioxide Anion Gap BUN Creatinine Estim Creat Clear Calc Estimated GFR Random Glucose Calcium Troponin I High Sens < 3.5 COVID-19 (VARUN) Negative COVID-19 Clin Com See Note EKG shows normal sinus rhythm with normal EKG Imaging Radiologist's impression: Impressions Chest X-Ray 03/13/21 09:37 IMPRESSION: Unremarkable chest examination. Procedures Date of Service Date of Service: 03/14/21
--- NOTE | 2021-03-14 12:25 | PC.NURSE ---
Pt A&Ox3, denies chest pain or SOB, seen by gericare aide teacher, underwent cardiac stress test. Discharge orders in. IV and groundwater monitoring technician removed. To follow up with gericare aide teacher and PCP.
--- NOTE | 2021-03-14 13:10 | MHC.CM.PN ---
Pt discharged home self-care, pt to transport self.
--- NOTE | 2021-11-26 18:52 | PM.DS ---
DS: Providers Provider Date of Service: 03/14/22 Date of admission: 03/13/21 13:37 Primary care physician: Rachna Bernard NP Consults: 03/13/21 13:37 Consult to Cardiology Routine Consulting Provider: Phuc Malik Reason for consultation: chest pain Has provider been notified: No DS: Diagnosis Discharge Diagnosis (1) Chest pain: Status: Acute DS: Summary Hospital Course Hospital Course: Date of service : 03/14/21 65-year-old of female with history of anxiety and hypothyroidism-she said she is having chest pain on and off since Wednesday, chest pain is pressure type, radiated to the jaw area, more with exertion, last episode was this morning at PCP office., she says she has resting elevate the pain.? Also says that she has some mild indigestion.? She also says that is recently going through lot of work stress. A PCP sent the for the chest pain evaluation-patient was seen by ED physician and found to have negative troponin and EKG seems fine but the chest pain seems more cardiac -admitted the patient for further evaluation. Denies any shortness of breath or abdominal pain or fever or chills or cough or phlegm or dizziness or weakness or numbness or any urinary complaints. Hospital course: Patient came with the chest pain-troponin negative, seen by Cardiology and had stress test which to came out to be fine, subsequently discussed with Cardiology and patient is going home with aspirin, statin, Toprol patient will need further workup out patiently -Out patient,cardiology may arrange their own appointment. Further management outpatient as per PCP, cardiology may arrange their own appointment. above management discussed with the patient -patient understands and in aggreement with above plan. Time Spent with Patient Time attestation: Total time spent providing and/or coordinating discharge services: Discharge coordination time: Greater than 30 minutes Quality: Safe Use of Opioids Does Pt have an Active Cancer Diagnosis on the Problem List?: No Quality: Stroke Does the patient have a stroke diagnosis?: No Physical Exam Vital Signs: Vital Signs: Last Vital Signs Temp 97.5 F 03/14/21 08:00 Pulse 63 03/14/21 09:49 Resp 20 03/14/21 08:00 BP 124/77 03/14/21 09:49 Pulse Ox 97 03/14/21 08:00 BMI result Body Mass Index 29.7 Appearance: Alert.? Oriented X3.? No acute distress. Eyes: eomi,perrla. Neck: Normal inspection.? Neck supple. No lymph nodes noted. No crepitus CVS: Normal heart rate and rhythm.? Pulses normal. Normal S1 and S2 Respiratory: No respiratory distress.? Breath sounds normal. No Wheezing. No rales Abdomen: Soft and nontender. No rigidity. No distention. bs present. Skin: Skin warm and dry.? no rash , no edema , pulses present. Extremities: No lower extremity edema. Neuro: Oriented X 3.? No motor deficit.? No sensory deficit. Moving all extermities. Discharge Plan Discharge Patient Disposition: Home, Self-Care Discharge Diagnosis: chest pain Referrals: Rachna Bernard NP [Primary Care Provider] - 1 Week Phuc Malik MD [Physician] - 1 Week (follow up in 1 week) Discharge Medications: Continued latanoprost 0.005 % drops 1 drp ophthalmic-Left BEDTIME 0RF pramipexole 0.5 mg tablet 0.5 mg PO BEDTIME 0RF levothyroxine [Synthroid] 88 mcg tablet 1 tab PO DAILY 0RF lorazepam 0.5 mg tablet 1 tab PO BID PRN (Reason: anxiety) 0RF lidocaine 5 % adhesive patch,medicated 1 patch topical DAILY PRN (Reason: Pain) 0RF omeprazole 20 mg capsule,delayed release(DR/EC) 20 mg PO DAILY 0RF Discontinued ibuprofen 600 mg tablet 1 tab PO TID PRN (Reason: pain) 0RF No Action meloxicam 15 mg tablet 15 mg PO DAILY 30 Days Qty: 30 0RF Discharge Orders: Discharge Order (Routine); Ordered 03/14/21 Ordered By: Saman Maria Diet: advance to usual diet, low fat, low cholesterol and low salt diet Activity on Discharge: As tolerated Stand Alone Forms: Patient Portal Discharge page Care Plan Goals: Patient came with the chest pain-troponin negative, seen by Cardiology and had stress test which to came out to be fine, subsequently discussed with Cardiology and patient is going home with aspirin, statin, Toprol patient will need further workup out patiently -Out patient Coronary CTA. Further management outpatient as per PCP, cardiology may arrange their own appointment. Health Concerns: As above. Plan of Treatment: As above. Assessment: As above. Discharge Date/Time: 03/14/21 12:47
== END 2021-03-14 12:47 | disposition home or self-care (01) | DRG 198 ==
LOC: HO.ED 12:28 → HO.EDOVER 14:17 → HO.IMC 23:04
PROVIDERS: Admitting Provider Internal Medicine; Emergency Provider Emergency Medicine Emergency Medical Services; PCP Nurse Practitioner Family; Visit Provider Internal Medicine
DX: I20.0 Unstable angina (principal); K90.0 Celiac disease; E03.9 Hypothyroidism, unspecified; F41.9 Anxiety disorder, unspecified; K21.9 Gastro-esophageal reflux disease without esophagitis; G25.81 Restless legs syndrome; Z20.822 Contact with and (suspected) exposure to COVID-19; Z88.0 Allergy status to penicillin; Z87.891 Personal history of nicotine dependence; Z88.2 Allergy status to sulfonamides; Z88.5 Allergy status to narcotic agent; Z79.82 Long term (current) use of aspirin; Z79.890 Hormone replacement therapy; Z79.899 Other long term (current) drug therapy
CPT/HCPCS: 36415; 71045; 80048; 84484; 85025; 87635; 93005; 93017; 99285

== ENCOUNTER 2021-06-20 08:48 | Day surgery (SDC) | payer OTHER, SELFPAY ==
[2021-06-13 11:19] VITALS: BMI 28.3
--- NOTE | 2021-06-19 09:15 | P.CONAN_ITS ---
Documented by User: Selin Peacock NP 06/19/21 09:20 HPI - Anesthesia Eval Consult details Narrative: 66yo F for ?Upper Endoscopy and Colonoscopy 02/2021 Cardiac w/u for unstable angina. No CAD noted. Cardiac cleared at low risk [facility] Active Problems Active Problems: All Active Problems (Updated 06/13/21 @ 11:19 by Susy Mejia RN) Tubular adenoma (Acute) Heartburn (Acute) Loose stools (Acute) Chest pain (Acute) Angina pectoris (Acute) Crescendo angina (Acute) Past Medical History Medical History Anxiety Celiac disease Chest pain COVID-19 vaccine series completed GERD (gastroesophageal reflux disease) Hypothyroidism Low back pain Restless leg syndrome Family History Family History Daughter Celiac disease Surgical History Surgical History History of back surgery Hx of appendectomy Hx of foot surgery Hx of right cataract extraction Hx of tonsillectomy Social History Social History Household Members: Children Household Members Other:: Son Housing: House Do you presently have visiting nurse or other home services: No Alcohol intake: current Alcohol intake frequency: a few times a month Alcohol type: hard liquor Patient Tobacco Use Status: Former Tobacco user Quit Date: 1994 Advance Directives: Yes Advance Directives Information Provided: Yes Advance Directives on File: Yes Advance Directives Date on File: 03/14/21 service: No Current occupational status: employed 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 Allergies Allergy/AdvReac Type Severity Reaction Status Date / Time gluten [Gluten] Allergy Severe Gastrointestinal Verified 06/20/21 08:58 Upset Penicillins Allergy Intermediate Rash Verified 06/20/21 08:58 Sulfa (Sulfonamide Allergy Intermediate Rash Verified 06/20/21 08:58 Antibiotics) Codeine Phosphate Allergy Intermediate Nausea Uncoded 03/13/21 08:31 Home Medications Medication Instructions Recorded Confirmed Last Taken Type latanoprost 0.005 % eye drops 1 drp OPHTHALMIC-LEFT BEDTIME 01/28/21 03/13/21 03/12/21 History levothyroxine 88 mcg tablet 1 tab PO DAILY 01/28/21 03/13/21 06/20/21 05:45 History (Synthroid) lidocaine 5 % topical patch 1 patch TOPICAL DAILY PRN 01/28/21 03/13/21 Unknown History lorazepam 0.5 mg tablet 1 tab PO BID PRN 01/28/21 03/13/21 Unknown History pramipexole 0.5 mg tablet 0.5 mg PO BEDTIME 01/28/21 03/13/21 03/12/21 History omeprazole 20 mg capsule,delayed 20 mg PO DAILY 03/06/21 03/13/21 03/13/21 History release Exam Exam Date and Time: June 19, 2021 0915 Height,Weight and Vital Signs: Height 5 ft 4 in Weight 74.843 kg Narrative Narrative: EKG 02/2021 NSR @ 74 CTA 04/2021 No CAD Exercise Stress 02/2021 Protocol: UZIEL ? Max HR: 160 BPM? 101% of? Pred: 157 BPM Max BP: 176/082 mmHG Max Work Load: 7.7 METS ? Exercise stress test with exercise 6 min 30 sec of Uziel protocol, with mild ?sob, 2-3/10 ache both sides of jaw, with no chest discomfort, with isolated ?PVCs, with normotensive response to exercise, without EKG changes meeting ?criteria for ischemia. In recovery her jaw ache resolved after 4 minutes. Test ?reviewed with Dr Malik. Assessment and Plan Assessment Anesthesia Assessment: Chart Reviewed Documented by User: Cheyanne Ansari MD 06/20/21 10:02 [facility] Past Medical History Medical History Anxiety Celiac disease Chest pain COVID-19 vaccine series completed GERD (gastroesophageal reflux disease) Hypothyroidism Low back pain Restless leg syndrome Family History Family History Daughter Celiac disease Surgical History Surgical History History of back surgery Hx of appendectomy Hx of foot surgery Hx of right cataract extraction Hx of tonsillectomy History of Problems with Anesthesia: No Social History Social History Household Members: Children Household Members Other:: Son Housing: House Do you presently have visiting nurse or other home services: No Alcohol intake: current Alcohol intake frequency: a few times a month Alcohol type: hard liquor Patient Tobacco Use Status: Former Tobacco user Quit Date: 1994 Advance Directives: Yes Advance Directives Information Provided: Yes Advance Directives on File: Yes Advance Directives Date on File: 03/14/21 service: No Current occupational status: employed 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 Allergies Allergy/AdvReac Type Severity Reaction Status Date / Time gluten [Gluten] Allergy Severe Gastrointestinal Verified 06/20/21 08:58 Upset Penicillins Allergy Intermediate Rash Verified 06/20/21 08:58 Sulfa (Sulfonamide Allergy Intermediate Rash Verified 06/20/21 08:58 Antibiotics) Codeine Phosphate Allergy Intermediate Nausea Uncoded 03/13/21 08:31 Home Medications Medication Instructions Recorded Confirmed Last Taken Type latanoprost 0.005 % eye drops 1 drp OPHTHALMIC-LEFT BEDTIME 01/28/21 03/13/21 03/12/21 History levothyroxine 88 mcg tablet 1 tab PO DAILY 01/28/21 03/13/21 06/20/21 05:45 History (Synthroid) lidocaine 5 % topical patch 1 patch TOPICAL DAILY PRN 01/28/21 03/13/21 Unknown History lorazepam 0.5 mg tablet 1 tab PO BID PRN 01/28/21 03/13/21 Unknown History pramipexole 0.5 mg tablet 0.5 mg PO BEDTIME 01/28/21 03/13/21 03/12/21 History omeprazole 20 mg capsule,delayed 20 mg PO DAILY 03/06/21 03/13/21 03/13/21 History release Exam Airway Mallampati Class: II TM Dist: >3cm Neck ROM: Full Loose/Missing/Broken Teeth: No Heart: RRR Lungs: CTA Assessment and Plan Assessment Anesthesia Assessment: Anesthesia Plan Discussed Final Anesthetic Review History of Problems with Anesthesia: No NPO: Yes ASA Class: II Final Preanesthetic Review: Meds/Allgs Chart Reviewed, Consent Obtained/Reviewed and Anes Risks/Benef Reviewed Patient Risk: Low Procedure Risk: Intermediate Anesthetic Plan Anesthetic Plan: MAC: Disposition: Standard PACU
[2021-06-20 09:13] VITALS: BP 131/87; PULSE 114; RESP 16; TEMP 36.8; O2SAT 96
--- NOTE | 2021-06-20 09:16 | MHC.SHP ---
Pre-Procedural Eval Section A Date of Service: 06/20/21 The patient is an INPATIENT: No The History & Physical has been completed within 30 days and I have reviewed it.: No Section B Chief Complaint: heartburn,benign neoplasm Details of Present Illness: Colon cancer screening, history of colon polyps, GERD, celiac disease Relevant Family History (Specify if Yes): Yes Relevant Social History: Tobacco Use (Former smoker) Present Medications: see Short Stay Collaborative assessment Medical History: Significant History (Anxiety Celiac disease COVID-19 vaccine series completed GERD (gastroesophageal reflux disease) Low back pain Restless leg syndrome) History of Previous Operations: Relevant previous surgery/procedure and date(s) (History of back surgery Hx of appendectomy Hx of foot surgery Hx of tonsillectomy) Allergies: Allergies Allergy/AdvReac Type Severity Reaction Status Date / Time gluten [Gluten] Allergy Severe Gastrointestinal Verified 06/20/21 08:58 Upset Penicillins Allergy Intermediate Rash Verified 06/20/21 08:58 Sulfa (Sulfonamide Allergy Intermediate Rash Verified 06/20/21 08:58 Antibiotics) Codeine Phosphate Allergy Intermediate Nausea Uncoded 03/13/21 08:31 Review of Systems Sugical H&P ROS: Negative: Constitution, Cardiovascular and Respiratory and Yes, Specify: Gastrointestinal (diarrhea) Exam Surgical H&P Exam: Normal: Heart, Normal: Lungs, Normal: Extremities and Normal: Abdomen Plan Diagnosis/Plan: Unchanged I have reviewed the history and physical and performed a pertinent physical examination on my patient. No changes have occurred unless specified.
--- NOTE | 2021-06-20 09:18 | PM.OP ---
Brief Operative Note Date of Service: 06/20/21 Pre-op diagnosis: Colon cancer screening, history of colon polyp, GERD, celiac disease Post-op diagnosis: other (Gastritis, GERD, celiac disease, diverticulosis, colon polyp, hemorrhoids) Procedure: FLEXIBLE TRANSORAL UPPER GASTROINTESTINAL ENDOSCOPY WITH BIOPSIES AND COLONOSCOPY TILL CECUM WITH BIOPSIES UPPER ENDOSCOPY Consent: Indications for the procedure and potential complications of bleeding, perforation, reaction to medications and missed diagnosis were discussed with the patient and informed consent was obtained. Instrument: Olympus GIF H 190 mid size upper endoscope Monitoring: Vital signs and clinical assessment, continuous EKG monitoring, Pulse oximetry, Carbon Dioxide monitoring and blood pressure monitoring were done throughout the procedure. Procedure: The patient was placed in the left lateral decubitis position and pre-procedure medications were administered and a bite block was placed. The endoscope was inserted into the mouth and advanced under direct vision to the third part of duodenum. A careful inspection was made as the upper endoscope was withdrawn including a retroflexed examination of the proximal stomach; Findings and interventions are described below. Findings: Larynx: Normal Esophagus: GE junction at 36 cms. No esophagitis or Harvey's. Stomach: Mild gastric erythema. Biopsies were obtained. Grade 2 flap valve on retroflexed examination of the cardia. Duodenum: Normal bulb and descending duodenum. Biopsies were obtained from 3rd part of duodenum to FU on celiac sprue. Intervention: Biopsies as noted above COLONOSCOPY PROCEDURE NOTE Consent: Indications for the procedure and potential complications of bleeding, perforation, reaction to medications and missed diagnosis were discussed with the patient and informed consent was obtained. Instrument: Olympus PCF H 190 L variable stiffness pediatric colonoscope Monitoring: Vital signs and clinical assessment, intermittent blood pressure monitoring, continuous EKG monitoring, Pulse oximetry and Carbon Dioxide monitoring were done throughout the procedure. Colon withdrawl time was 14 minutes. Procedure: The patient was placed in the left lateral decubitis position and pre-procedure medications were administered. After a digital rectal examination of the ano-rectum, the video colonoscope was inserted into the rectum and advanced through the colon to the cecum. The colonoscope was slowly withdrawn in a retrograde panoramic fashion and the colon mucosa was carefully examined including a retroflexed view of the rectum. Findings and interventions are described below. Procedure Difficulty: : Without difficulty Findings: Terminal Ileum: Not evaluated Cecum: Normal Ascending Colon: Normal Transverse Colon: Normal Descending Colon: Normal Sigmoid Colon: Moderate diverticulosis Rectum: A 3-4 mm diminutive appearing polyp removed with a cold bx. Ano-rectum: Small internal hemorrhoids Colon preparation: Excellent [Good] [Fair] [poor] Impression and Post Procedure Diagnosis: Endoscopy Findings: STOMACH: Gastritiis DUODENUM: Normal - bxed to fu on celiac sprue Colonoscopy Findings: One tiny polyp removed. Random biopsies were obtained from the colon. Moderate diverticulosis seen in the sigmoid colon Small hemorrhoids on retroflexed exam. Plan: Await pathology results Patient has an appointment on 07/02/21 in the GI Clinic with JENNIFER Emery. Repeat Colonoscopy interval based on path results - in 5 years if polyps are adenomatous and 10 years if polyps are hyperplastic. Above findings were reviewed with the patient and Celiac Disease, colon polyps and diverticulosis handouts were given in the discharge area Surgeon: Bernard Dodson MD Anesthesia: MAC (Kenzie Rock CRNA) Was an Assembler Fluorescent Lights used for this Procedure?: Yes Assembler Fluorescent Lights: Yael Parson Estimated blood loss (mL): 0 Pathology: other (A. small bowel biopsies, H/O Celiac B. gastric antrum biopsies, R/O H. pylori C. random colon biopsies, R/O microscopic colitis D. polyp in rectum) Condition: stable Disposition: PACU
--- NOTE | 2021-06-20 09:18 | W.PM.OPN ---
Operative Note Operative Note Date of Service: 06/20/21 Narrative: Pre-op diagnosis:?Colon cancer screening, history of colon polyp, GERD, celiac disease Post-op diagnosis:?other (Gastritis, GERD, celiac disease, diverticulosis, colon polyp, hemorrhoids) Procedure:? FLEXIBLE TRANSORAL UPPER GASTROINTESTINAL ENDOSCOPY WITH BIOPSIES AND COLONOSCOPY TILL CECUM WITH BIOPSIES UPPER ENDOSCOPY Consent:?Indications for the procedure and potential complications of bleeding, perforation, reaction to medications and missed diagnosis were discussed with the patient and informed consent was obtained. Instrument:?Olympus GIF H 190 mid size upper endoscope Monitoring: Vital signs and clinical assessment, continuous EKG monitoring, Pulse oximetry, Carbon Dioxide monitoring and blood pressure monitoring were done throughout the procedure. Procedure:?The patient was placed in the left lateral decubitis position and pre-procedure medications were administered and a bite block was placed. The endoscope was inserted into the mouth and advanced under direct vision to the third part of duodenum. A careful inspection was made as the upper endoscope was withdrawn including a retroflexed examination of the proximal stomach; Findings and interventions are described below. Findings: Larynx:? Normal Esophagus:?GE junction at 36 cms.? No esophagitis or Harvey's. Stomach:?Mild gastric erythema. Biopsies were obtained. Grade 2 flap valve on retroflexed examination of the cardia. Duodenum:?Normal bulb and descending duodenum.? Biopsies were obtained from 3rd part of duodenum to FU on celiac sprue. Intervention:?Biopsies as noted above COLONOSCOPY PROCEDURE NOTE Consent:?Indications for the procedure and potential complications of bleeding, perforation, reaction to medications and missed diagnosis were discussed with the patient and informed consent was obtained. Instrument:?Olympus PCF H 190 L variable stiffness pediatric colonoscope Monitoring:?Vital signs and clinical assessment, intermittent blood pressure monitoring, continuous EKG monitoring, Pulse oximetry and Carbon Dioxide monitoring were done throughout the procedure. Colon withdrawl time was 14 minutes. Procedure:?The patient was placed in the left lateral decubitis position and pre-procedure medications were administered. After a digital rectal examination of the ano-rectum, the video colonoscope was inserted into the rectum and advanced through the colon to the cecum. The colonoscope was slowly withdrawn in a retrograde panoramic fashion and the colon mucosa was carefully examined including a retroflexed view of the rectum. Findings and interventions are described below. Procedure Difficulty:?: Without difficulty Findings: Terminal Ileum: Not evaluated Cecum:? Normal Ascending Colon:??Normal Transverse Colon:??Normal Descending Colon:? Normal Sigmoid Colon:??Moderate diverticulosis Rectum:??A 3-4 mm diminutive appearing polyp removed with a cold bx. Ano-rectum:??Small internal hemorrhoids Colon preparation: Excellent [Good] [Fair] [poor] Impression and Post Procedure Diagnosis: Endoscopy Findings: STOMACH: Gastritiis DUODENUM: Normal - bxed to fu on celiac sprue Colonoscopy Findings: One tiny polyp removed. Random biopsies were obtained from the colon. Moderate diverticulosis seen in the sigmoid colon Small hemorrhoids on retroflexed exam. Plan: Await pathology results Patient has an appointment on 07/02/21 in the [facility] with JENNIFER Emery. Repeat Colonoscopy interval based on path results - in 5 years if polyps are adenomatous and 10 years if polyps are hyperplastic. Above findings were reviewed with the patient and Celiac Disease, colon polyps and diverticulosis handouts were given in the discharge area Surgeon:?Bernard Dodson MD Anesthesia:?MAC (Kenzie Rock CRNA) Was an Packaging Coordinator used for this Procedure?:?Yes Packaging Coordinator:?Yael Parson Estimated blood loss (mL):?0 Pathology:?other (A. small bowel biopsies, H/O Celiac? B. gastric antrum biopsies, R/O H. pylori? C. random colon biopsies, R/O microscopic colitis? D. polyp in rectum) Condition:?stable Disposition:?PACU
[2021-06-20] MEDS: Lactated Ringers 1,000 ML 100 ML IVCONT (09:34)
[2021-06-20 11:01] VITALS: BP 101/65; PULSE 94; RESP 20; TEMP 37.1; O2SAT 96
[2021-06-20 11:16] VITALS: BP 108/84; PULSE 86; RESP 18; TEMP 37.1; O2SAT 96
== END 2021-06-20 12:13 | disposition home or self-care (01) ==
PROVIDERS: PCP Nurse Practitioner Family; Visit Provider Internal Medicine Gastroenterology
PROC: (CPT 45380; principal; 2021-06-20 10:10)
DX: Z12.11 Encounter for screening for malignant neoplasm of colon (principal); Z86.010 Personal history of colon polyps; K62.1 Rectal polyp; K21.9 Gastro-esophageal reflux disease without esophagitis; K29.50 Unspecified chronic gastritis without bleeding; K90.0 Celiac disease; K57.30 Diverticulosis of large intestine without perforation or abscess without bleeding; K64.8 Other hemorrhoids; Z79.899 Other long term (current) drug therapy; Z88.0 Allergy status to penicillin; Z88.2 Allergy status to sulfonamides; Z88.8 Allergy status to other drugs, medicaments and biological substances
CPT/HCPCS: 45380; 43239; 88305; 88342

== ENCOUNTER 2021-10-04 09:43 | Outpatient (REF) | payer OTHER, SELFPAY ==
--- NOTE | ~2021-10-04 | MM_ITS ---
EXAMINATION: MM SCREENING DIGITAL BREAST TOMOSYNTHESIS, BILATERAL CLINICAL INFORMATION: Screening. Asymptomatic. The lifetime risk of breast cancer based on the Tyrer-Cuzick Model is 4%. COMPARISON: Mammography: 09/07/2019, 05/13/2016, 05/08/2016 TECHNIQUE: Digital breast tomosynthesis is performed in both the craniocaudal and mediolateral oblique views along with computer-aided detection (CAD). Synthesized 2D images are generated from the tomosynthesis. FINDINGS: The breasts are heterogeneously dense, which may obscure small masses (ACR BI-RADS breast composition Category c). There are no significant masses, abnormal calcifications, or other abnormalities. Parenchymal pattern is similar to prior studies. There is no developing density or architectural abnormality. The axilla and skin contours are unremarkable. No significant changes. MM/MM tomosynthesis screening BI IMPRESSION: No mammographic evidence of malignancy. ASSESSMENT: BI-RADS 1: Negative RECOMMENDATION: Routine annual mammography screening. This patient's information was entered into a reminder system with a target due date for their next mammogram.
== END 2021-10-04 09:44 | disposition home or self-care (01) ==
LOC: HO.MAMMO 09:43
PROVIDERS: PCP Nurse Practitioner Family; Visit Provider Nurse Practitioner Family
DX: Z12.31 Encounter for screening mammogram for malignant neoplasm of breast (principal)
CPT/HCPCS: 77063; 77067

== ENCOUNTER 2021-10-15 07:52 | Outpatient (REF) | payer OTHER, SELFPAY ==
--- NOTE | ~2021-10-15 | XR_ITS ---
EXAMINATION: XR HIP, LEFT CLINICAL INFORMATION: Pain COMPARISON: None TECHNIQUE: Two views of the left hip and one view of the pelvis. FINDINGS: There is mild arthritis at the left hip joint with joint space narrowing and degenerative chondrocalcinosis. There is a sclerotic density in the left femoral intertrochanteric region measuring 2 cm. No comparison imaging is available. Bones of the pelvis are normal. There are degenerative changes of the lower lumbar spine. Soft tissues are unremarkable. XR/XR hip LT w PEL1V IMPRESSION: Mild arthritis at the left hip joint. 2 cm sclerotic lesion in the left femoral intertrochanteric region. This may represent a bone island. No comparison images are available confirm stability.
== END 2021-10-15 07:53 | disposition home or self-care (01) ==
LOC: HO.HOSX 07:52
PROVIDERS: Visit Provider Physician Assistant
DX: M70.62 Trochanteric bursitis, left hip (principal); M89.8X5 Other specified disorders of bone, thigh
CPT/HCPCS: 73502; J1040

== ENCOUNTER 2021-10-27 17:50 | Outpatient (REF) | payer OTHER, SELFPAY ==
--- NOTE | ~2021-10-27 | MR_ITS ---
EXAMINATION: MR HIP WITHOUT CONTRAST, LEFT CLINICAL INFORMATION: Left hip pain. Trochanteric bursitis. Lateral pain radiates to the left leg. COMPARISON: Radiograph dated 10/15/2021. TECHNIQUE: MRI of the left hip was obtained using routine sequences on a high-field magnet. FINDINGS: LABRUM/CAPSULE: At the superolateral aspect of the acetabular labrum between the 12 o'clock position and anterosuperior 1 o'clock position, there is a labral tear measuring 1.5 cm AP with adjacent chondral delamination at the acetabular roof. Labrum is otherwise intact. BONES AND ARTICULAR CARTILAGE: The aforementioned defect in the lateral aspect of the acetabular roof adjacent to the labrum measures 1.3 x 0.7 cm (AP by transverse) and appears full-thickness with underlying irregularity of the articular cortex. Femoral head cartilage appears normal by comparison. Tiny marginal osteophyte at the acetabular roof. Minimal osteoarthritis in the right hip and SI joints. Facet arthropathy is evident in the lower lumbar spine. At the intertrochanteric region of the proximal femur, there is a 2.0 x 0.8 x 1.4 cm focus of uniformly low signal intensity in the anterior endosteal region without surrounding cortical remodeling or marrow signal abnormalities, most consistent with a large enostosis. No aggressive intramedullary lesions are identified. MUSCLES AND TENDONS: Dhpy-tm-ymyszyar tendinosis is present at the gluteus medius insertion, characterized by tendon thickening and increased intrasubstance signal. Similarly, tendinosis is present at the gluteus minimus insertion. Trace subtendinous bursal fluid at the gluteus medius. No discrete tears. Hamstrings are intact. Iliopsoas and rectus femoris are normal. Musculature appears normal in signal intensity without significant atrophy. JOINT FLUID AND BURSAE: No joint effusion. Sozl-jm-abvjkfud greater trochanteric bursitis. INTRAPELVIC SOFT TISSUES: There is a large 6.5 cm fibroid in the uterine body, partially imaged on this study. Diverticulosis is present in the sigmoid colon. No appreciable adenopathy. No acute intrapelvic findings. MR/MR hip LT wo con IMPRESSION: 1. Ncog-zn-hdmndjjr trochanteric bursitis with lprn-gd-skavayfj underlying tendinosis of the gluteus minimus and gluteus medius. No significant tears. 2. Focal tear of the superolateral acetabular labrum with an adjacent 1.3 x 0.7 cm full-thickness chondral defect at the acetabular roof.
== END 2021-10-27 17:51 | disposition home or self-care (01) ==
LOC: HO.MRI 17:50
PROVIDERS: PCP Nurse Practitioner Family; Visit Provider Physician Assistant
DX: M70.62 Trochanteric bursitis, left hip (principal); M89.8X5 Other specified disorders of bone, thigh
CPT/HCPCS: 73721

== ENCOUNTER → 2021-11-06 12:13 | Outpatient (BNVA) | payer OTHER, SELFPAY | PROVIDERS: PCP Nurse Practitioner Family; Visit Provider Physician Assistant | DX: Z13.89 Encounter for screening for other disorder (principal) ==

== ENCOUNTER 2021-12-05 07:20 | Emergency (ER) | payer OTHER, SELFPAY ==
--- NOTE | ~2021-12-05 | CT_ITS ---
EXAMINATION: CT ABDOMEN AND PELVIS WITH CONTRAST CLINICAL INFORMATION: Abdominal pain with bloody stools COMPARISON: None TECHNIQUE: Multidetector volumetric images were obtained from the superior aspect of the liver through the pubic symphysis following administration 85 mL of Omnipaque 350 intravenous contrast. Sagittal and coronal reformatted images were obtained on the technologist's workstation. Oral contrast: No This CT examination was performed using dose optimization techniques as appropriate, variously including the following: *Automated exposure control *Adjustment of mA and/or kV according to patient size (this includes techniques or standardized protocols for targeted exams where dose is matched to indication/reason for exam; i.e. extremities or head) *Use of iterative reconstruction technique DLP: 591 mGy-cm FINDINGS: LUNG BASES: No pleural or pericardial effusion identified. No confluent parenchymal disease. LIVER, GALLBLADDER, AND BILIARY TREE: There are a few subcentimeter cysts present scattered within the liver. No suspicious focal mass or intrahepatic bile duct dilatation is seen. The gallbladder is unremarkable with no evidence of radiopaque gallstones, gallbladder wall thickening, or obvious pericholecystic inflammatory changes. PANCREAS: Unremarkable. SPLEEN: Unremarkable. ADRENAL GLANDS: Unremarkable. 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 No hydronephrosis, hydroureter, or calculi seen. No perinephric stranding. BLADDER: Unremarkable. GASTROINTESTINAL TRACT: No dilated loops of large or small bowel. No free air or free fluid. There is no evidence of acute diverticulitis. No pericolonic inflammatory changes seen. The appendix is not visualized. ABDOMINAL WALL: There is a small fat-containing umbilical hernia. LYMPH NODES: No lymphadenopathy is appreciated. VASCULAR: Unremarkable. PELVIC VISCERA: There appears be a large uterine mass measuring approximately 7.2 x 6.1 x 6.8 cm in size and likely representing a fibroid. OSSEOUS STRUCTURES: Patient is status post previous surgery at the L3-L4 level with surgical clips also seen in the adjacent soft tissues. No suspicious destructive bony lesions identified. CT/CT abdomen pelvis w con IMPRESSION: No evidence of ileus or obstruction. No free air or free fluid. No evidence of colitis. Large uterine mass likely representing a fibroid. Fleischner guidelines were followed.
[2021-12-05 07:23] VITALS: BP 139/90; PULSE 100; RESP 16; TEMP 36.5; O2SAT 98; BMI 29.5
--- NOTE | 2021-12-05 07:43 | ED.ABDPAIN ---
HPI - Abdominal Pain General Chief Complaint: Abdominal Pain Stated Complaint: bloody stool back abd pain Time Seen by Provider: 12/05/21 07:33 Source: patient Mode of arrival: ambulatory Limitations: no limitations History of Present Illness MD elicited complaint: abdominal pain (3 to 4 bloody stools yesterday ) Pertinent past history: other (celiac disease) Onset (ago): day(s) (Wednesday ) Location: RLQ, LLQ and suprapubic Severity: moderate Quality: cramping Radiation: none Migration to: no migration Exacerbating factors: bowel movement Relieving factors: nothing Associated symptoms: nausea, hematochezia and other (headaches) Treatments prior to arrival: NSAIDs and other (takes meloxicam as well ) Related Data Home Medications Medication Instructions Recorded Confirmed latanoprost 0.005 % eye drops 1 drp OPHTHALMIC-LEFT BEDTIME 01/28/21 03/13/21 levothyroxine 88 mcg tablet 1 tab PO DAILY 01/28/21 03/13/21 (Synthroid) lidocaine 5 % topical patch 1 patch TOPICAL DAILY PRN 01/28/21 03/13/21 lorazepam 0.5 mg tablet 1 tab PO BID PRN 01/28/21 03/13/21 pramipexole 0.5 mg tablet 0.5 mg PO BEDTIME 01/28/21 03/13/21 omeprazole 20 mg capsule,delayed 20 mg PO DAILY 03/06/21 03/13/21 release Previous Rx's Medication Instructions Recorded meloxicam 15 mg tablet 15 mg PO DAILY 30 Days #30 tab 11/06/21 cyclobenzaprine 10 mg tablet 10 mg PO TID PRN #14 tab 12/05/21 Allergies Allergy/AdvReac Type Severity Reaction Status Date / Time gluten [Gluten] Allergy Severe Gastrointestinal Verified 11/06/21 12:17 Upset Penicillins Allergy Intermediate Rash Verified 11/06/21 12:17 Sulfa (Sulfonamide Allergy Intermediate Rash Verified 11/06/21 12:17 Antibiotics) Codeine Phosphate Allergy Intermediate Nausea Uncoded 11/06/21 12:17 Review of Systems Review of Systems Constitutional : No Weight loss, No Fever, No Chills ENT/Mouth : No sore throat, No Rhinorrhea Eyes: No Swelling, No Redness Cardiovascular : No Chest Pain, No SOB, NoEdema Respiratory : No Cough, No Sputum, No Wheezing Gastrointestinal : no Nausea, no Vomiting, positive Diarrhea, positive abdominal Pain, pos Hematochezia, No Melena Genitourinary : No Dysuria, No Urinary Frequency, No Hematuria, No Urgency Musculoskeletal : No joint pain, No Myalgias, No Joint Swelling Skin : No Skin Lesions, No rash Neuro : No Weakness, No Numbness, No Dizziness, pos Headache Psych : No Anxiety/Panic, No Depression Heme/Lymph: No Bruising, No Lymphadenopathy Endocrine : No Polyuria, No Polydipsia All other systems reviewed and are negative. [facility] Past Medical History Attestation statement: The following information was validated with the patient. Medical History Anxiety Celiac disease Chest pain COVID-19 vaccine series completed GERD (gastroesophageal reflux disease) Hypothyroidism Low back pain Restless leg syndrome Surgical History History of back surgery Hx of appendectomy Hx of foot surgery Hx of right cataract extraction Hx of tonsillectomy Family History Family History Daughter Celiac disease Social History Social History Household Members: Children Household Members Other:: Son Housing: House Do you presently have visiting nurse or other home services: No Alcohol intake: current Alcohol intake frequency: a few times a month Alcohol type: hard liquor Patient Tobacco Use Status: Never used Tobacco Advance Directives: Yes Advance Directives on File: Yes Advance Directives Date on File: 03/14/21 service: No Current occupational status: employed Current occupation: [employer] Physical Exam ED Vital Signs: Vital Signs - 24 hr 12/05/21 07:23 12/05/21 08:11 Temperature 97.7 F 98.8 F Pulse Rate 100 85 Respiratory Rate 16 17 Blood Pressure 139/90 H 112/77 Pulse Oximetry 98 95 BMI result Body Mass Index 29.5 Appearance: Alert. Oriented X3. No acute distress. Eyes: Pupils equal, round and reactive to light. ENT: Pharynx normal. Neck: Normal inspection. Neck supple. CVS: Normal heart rate and rhythm. Pulses normal. Respiratory: No respiratory distress. Breath sounds normal. Abdomen: Soft and mild lower abdominal ttp no rebound Rectal: pink tinged but brown no bleeding hemorrhhoids Skin: Skin warm and dry. Normal skin color. Normal skin turgor. Extremities: No lower extremity edema. No calf ttp Neuro: Oriented X 3. No motor deficit. No sensory deficit. Course Course Course Narrative: labs, guiac, UA and CT scan negative for acute findings, can follow up with PCP on Wednesday or GI - at this time will hold antibiotics without acute findings MDM - Abdominal Pain MDM Narrative Medical decision making narrative: 66 yo female with hx of celiac disease, back pain with prior surgery, celiac disease - controlled really well at this time c/o lower abdominal pain with hematochezia yesterday AM. She denies food exposures, normal colonoscopy other than diverticulosis one year ago, no recent antibiotic use. At this time will need labs, guiac study, CT scan for colitis, diverticulitis. IV morphine for pain. Dispo per results and findings. Lab Data Result diagrams: 12/05/21 08:17 12/05/21 08:17 Labs: Lab Results 12/05/21 12/05/21 12/05/21 Range/Units 08:17 08:17 08:17 WBC 9.0 (4.8-10.8) X10*3/uL RBC 4.46 (4.20-5.50) X10*6/uL Hgb 13.1 (12.0-16.0) g/dl Hct 39.9 (37.0-47.0) % MCV 89.5 (80.0-98.0) fL MCH 29.4 (27.0-33.0) pg MCHC 32.8 (31.0-35.0) g/dl RDW 14.3 (11.0-16.0) % Plt Count 331 (160-400) X10*3/uL MPV 11.5 (9.4-12.3) fL Immature Gran % (Auto) 0.4 (0.0-0.4) % Neut % (Auto) 70.6 (45-73) % Lymph % (Auto) 18.7 L (20-40) % [place] % (Auto) 7.7 (2-11) % Eos % (Auto) 2.0 (0-4) % Baso % (Auto) 0.6 (0-2) % Lymph # (Auto) 1.7 (1.2-4.9) X10*3/uL [place] # (Auto) 0.7 (0.1-1.2) X10*3/uL Eos # (Auto) 0.2 (0.0-0.4) X10*3/uL Baso # (Auto) 0.1 (0.0-0.2) X10*3/uL Abs Immat Gran (auto) 0.04 H (0.00-0.03) X10*3/uL Absolute Neuts (auto) 6.4 (2.0-8.3) x10*3/uL Absolute Nucleated RBC 0.000 (0.0-0.012) X10*3/uL Nucleated RBC % (auto) 0.0 (0.0-0.2) /100WBC PT 11.8 (9.9-13.0) SEC INR 1.0 (0.9-1.1) Sodium 138 (135-145) mmol/L Potassium 4.4 (3.3-5.1) mmol/L Chloride 106 (96-108) mmol/L Carbon Dioxide 24 (22-29) mmol/L Anion Gap 12 (12-20) BUN 21 H (9-16) mg/dL Creatinine 0.90 (0.5-1.4) mg/dL Estim Creat Clear Calc 63.8 Estimated GFR > 60 Random Glucose 98 (60-115) mg/dL Lactic Acid (0.5-2.0) mmol/L Calcium 9.6 (8.4-10.2) mg/dL Magnesium 2.2 (1.6-2.6) mg/dL Total Bilirubin 0.5 (0.0-1.0) mg/dL Direct Bilirubin 0.2 (0.0-0.5) mg/dL AST 29 (5-31) U/L ALT 34 H (0-31) U/L Alkaline Phosphatase 99 (39-117) U/L Total Protein 6.5 (6.5-8.0) g/dL Albumin 4.2 (3.5-5.0) g/dL Lipase 25 (8-78) U/L Urine Color Urine Appearance Urine pH (5.0-8.0) Ur Specific [place] (1.005-1.025) Urine Protein (NEG-TRACE) MG/DL Urine Glucose (UA) (NEG) MG/DL Urine Ketones (NEG) MG/DL Urine Blood (NEG) Urine Nitrite (NEG) Ur Leukocyte Esterase (NEG) Urine RBC (0) /HPF Urine WBC (0-4) /HPF Ur Squamous Epith Cells /LPF Urine Bacteria /LPF Stool Occult Blood (NEGATIVE) 12/05/21 12/05/21 12/05/21 Range/Units 08:17 08:18 08:25 WBC (4.8-10.8) X10*3/uL RBC (4.20-5.50) X10*6/uL Hgb (12.0-16.0) g/dl Hct (37.0-47.0) % MCV (80.0-98.0) fL MCH (27.0-33.0) pg MCHC (31.0-35.0) g/dl RDW (11.0-16.0) % Plt Count (160-400) X10*3/uL MPV (9.4-12.3) fL Immature Gran % (Auto) (0.0-0.4) % Neut % (Auto) (45-73) % Lymph % (Auto) (20-40) % [place] % (Auto) (2-11) % Eos % (Auto) (0-4) % Baso % (Auto) (0-2) % Lymph # (Auto) (1.2-4.9) X10*3/uL [place] # (Auto) (0.1-1.2) X10*3/uL Eos # (Auto) (0.0-0.4) X10*3/uL Baso # (Auto) (0.0-0.2) X10*3/uL Abs Immat Gran (auto) (0.00-0.03) X10*3/uL Absolute Neuts (auto) (2.0-8.3) x10*3/uL Absolute Nucleated RBC (0.0-0.012) X10*3/uL Nucleated RBC % (auto) (0.0-0.2) /100WBC PT (9.9-13.0) SEC INR (0.9-1.1) Sodium (135-145) mmol/L Potassium (3.3-5.1) mmol/L Chloride (96-108) mmol/L Carbon Dioxide (22-29) mmol/L Anion Gap (12-20) BUN (9-16) mg/dL Creatinine (0.5-1.4) mg/dL Estim Creat Clear Calc Estimated GFR Random Glucose (60-115) mg/dL Lactic Acid 0.7 (0.5-2.0) mmol/L Calcium (8.4-10.2) mg/dL Magnesium (1.6-2.6) mg/dL Total Bilirubin (0.0-1.0) mg/dL Direct Bilirubin (0.0-0.5) mg/dL AST (5-31) U/L ALT (0-31) U/L Alkaline Phosphatase (39-117) U/L Total Protein (6.5-8.0) g/dL Albumin (3.5-5.0) g/dL Lipase (8-78) U/L Urine Color STRAW Urine Appearance CLEAR Urine pH 5.5 (5.0-8.0) Ur Specific [place] <= 1.005 (1.005-1.025) Urine Protein NEG (NEG-TRACE) MG/DL Urine Glucose (UA) NEG (NEG) MG/DL Urine Ketones NEG (NEG) MG/DL Urine Blood TRACE (NEG) Urine Nitrite NEG (NEG) Ur Leukocyte Esterase NEG (NEG) Urine RBC 0-2 (0) /HPF Urine WBC 0 (0-4) /HPF Ur Squamous Epith Cells TRACE /LPF Urine Bacteria NONE /LPF Stool Occult Blood NEGATIVE (NEGATIVE) Discharge Plan Discharge Clinical Impression: Bright red rectal bleeding Abdominal pain Qualifiers: Abdominal location: lower abdomen, unspecified Qualified Code(s): R10.30 - Lower abdominal pain, unspecified Patient Disposition: Home, Self-Care Instructions: Gastrointestinal Bleeding (ED), Acute Abdominal Pain (ED) Additional Instructions: return to ED for any worsening symptoms or concerns do not mix NSAIDs (motrin, aleve, naprosyn, ibuprofen) with meloxicam LABS NORMAL NO ELEVATED WBC, NORMAL HEMOGLOBIN, NO BLOOD IN STOOL TODAY, URINE NORMAL CALL YOUR GI DOCTOR ON WEDNESDAY FINDINGS: LUNG BASES: No pleural or pericardial effusion identified. No confluent parenchymal disease.? LIVER, GALLBLADDER, AND BILIARY TREE: There are a few subcentimeter cysts present scattered within the liver. No suspicious focal mass or intrahepatic bile duct dilatation is seen. The gallbladder is unremarkable with no evidence of radiopaque gallstones, gallbladder wall thickening, or obvious pericholecystic inflammatory changes.? PANCREAS: Unremarkable.? SPLEEN: Unremarkable.? ADRENAL GLANDS: Unremarkable.? 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 No hydronephrosis, hydroureter, or calculi seen. No perinephric stranding. ? BLADDER: Unremarkable.? GASTROINTESTINAL TRACT: No dilated loops of large or small bowel. No free air or free fluid. There is no evidence of acute diverticulitis. No pericolonic inflammatory changes seen. The appendix is not visualized. ABDOMINAL WALL: There is a small fat-containing umbilical hernia.? LYMPH NODES: No lymphadenopathy is appreciated. VASCULAR: Unremarkable. PELVIC VISCERA: There appears be a large uterine mass measuring approximately 7.2 x 6.1 x 6.8 cm in size and likely representing a fibroid.? OSSEOUS STRUCTURES: Patient is status post previous surgery at the L3-L4 level with surgical clips also seen in the adjacent soft tissues. No suspicious destructive bony lesions identified.? CT/CT abdomen pelvis w con IMPRESSION: No evidence of ileus or obstruction. ? No free air or free fluid. ? No evidence of colitis. ? Large uterine mass likely representing a fibroid.? ? Fleischner guidelines were followed. Prescriptions: New cyclobenzaprine 10 mg tablet 10 mg PO TID PRN (Reason: muscle spasm) Qty: 14 0RF No Action latanoprost 0.005 % drops 1 drp ophthalmic-Left BEDTIME 0RF pramipexole 0.5 mg tablet 0.5 mg PO BEDTIME 0RF levothyroxine [Synthroid] 88 mcg tablet 1 tab PO DAILY 0RF lorazepam 0.5 mg tablet 1 tab PO BID PRN (Reason: anxiety) 0RF lidocaine 5 % adhesive patch,medicated 1 patch topical DAILY PRN (Reason: Pain) 0RF omeprazole 20 mg capsule,delayed release(DR/EC) 20 mg PO DAILY 0RF meloxicam 15 mg tablet 15 mg PO DAILY 30 Days Qty: 30 0RF Stand Alone Forms: Work/School Release
[2021-12-05 08:11] VITALS: BP 112/77; PULSE 85; RESP 17; TEMP 37.1; O2SAT 95
[2021-12-05 08:23] LABS: OBS1 NEGATIVE (NEGATIVE)
[2021-12-05 08:23] LABS: MANUAL DIFF FLAG NO
[2021-12-05 08:25] LABS: OBS Int Ctl Valid YES
[2021-12-05 08:28] LABS: Basophils Absolute Auto 0.1 X10*3/uL (0.0-0.2); Basophils Percent Auto 0.6 % (0-2); Eosinophils Absolute Auto 0.2 X10*3/uL (0.0-0.4); Hematocrit 39.9 % (37.0-47.0); Hemoglobin 13.1 g/dl (12.0-16.0); Imm Gran Abs Auto 0.04 X10*3/uL (0.00-0.03); Imm Gran Pct Auto 0.4 % (0.0-0.4); Lymphocytes Absolute Auto 1.7 X10*3/uL (1.2-4.9); Lymphocytes Percent Auto 18.7 % (20-40); Mean Corpuscular HGB Conc 32.8 g/dl (31.0-35.0); Mean Corpuscular Hemoglobin 29.4 pg (27.0-33.0); Mean Corpuscular Volume 89.5 fL (80.0-98.0); Mean Platelet Volume 11.5 fL (9.4-12.3); Monocytes Absolute Auto 0.7 X10*3/uL (0.1-1.2); Monocytes Percent Auto 7.7 % (2-11); Neutrophils Absolute Auto 6.4 x10*3/uL (2.0-8.3); Neutrophils Percent Auto 70.6 % (45-73); Platelet Count 331 X10*3/uL (160-400); Red Blood Count 4.46 X10*6/uL (4.20-5.50); Red Cell Distribution Width 14.3 % (11.0-16.0)
[2021-12-05 08:30] LABS: Appearance Urine CLEAR; Color Urine STRAW; Glucose Urine UA NEG (NEG); Nitrite Urine NEG (NEG); PH 5.5 (5.0-8.0); Specific Gravity - Urine <= 1.005 (1.005-1.025); Urine Blood TRACE (NEG); Urine Ketones NEG (NEG); Urine Protein NEG (NEG-TRACE)
[2021-12-05 08:32] LABS: Lactic Acid 0.7 mmol/L (0.5-2.0)
[2021-12-05 08:35] LABS: Leukocyte Esterase Urine NEG (NEG); UACC Culture Trigger NO
[2021-12-05 08:39] LABS: Alanine Aminotransferase 34 U/L (0-31); Albumin Level 4.2 g/dL (3.5-5.0); Alkaline Phosphatase 99 U/L (39-117); Anion Gap 12 (12-20); Aspartate Amino Transferase 29 U/L (5-31); Bilirubin Direct 0.2 mg/dL (0.0-0.5); Bilirubin Total 0.5 mg/dL (0.0-1.0); Blood Urea Nitrogen 21 mg/dL (9-16); Calcium 9.6 mg/dL (8.4-10.2); Carbon Dioxide 24 mmol/L (22-29); Chloride 106 mmol/L (96-108); Creatinine Clr Calc Pharmacy 63.8; Estimated Glomerular Filt Rate > 60; Glucose Random 98 mg/dL (60-115); Lipase 25 U/L (8-78); Magnesium 2.2 mg/dL (1.6-2.6); Potassium 4.4 mmol/L (3.3-5.1); Sodium 138 mmol/L (135-145); Total Protein 6.5 g/dL (6.5-8.0)
[2021-12-05 08:40] LABS: Prothrombin Time 11.8 SEC (9.9-13.0)
[2021-12-05 08:58] LABS: RBC Urine 0-2 /HPF (0); Squamous Epithelial Cell Urine TRACE /LPF; WBC Urine 0 /HPF (0-4)
[2021-12-05] MEDS: 0.9 % Sodium Chloride 1,000 ML 999 ML IVCONT (09:16)
[2021-12-05] MEDS: iohexoL 350 MG/ML 100 ML INFUS..BTL IV (09:26)
== END 2021-12-05 12:32 | disposition home or self-care (01) ==
PROVIDERS: Emergency Provider Emergency Medicine; PCP Nurse Practitioner Family
DX: R10.31 Right lower quadrant pain (principal); R10.32 Left lower quadrant pain; Z79.899 Other long term (current) drug therapy
CPT/HCPCS: 36415; 74177; 80048; 80076; 81001; 82272; 83605; 83690; 83735; 85025; 85610; 96361; 96374; 96375; 99284; Q9967

== ENCOUNTER 2022-01-01 15:18 | Outpatient (REF) | payer OTHER, SELFPAY ==
--- NOTE | ~2022-01-01 | US_ITS ---
EXAMINATION: US PELVIS CLINICAL INFORMATION: Leiomyoma of the uterus. COMPARISON: None TECHNIQUE: Ultrasound of the pelvis is performed using both transabdominal and transvaginal transducers along with Doppler. Transvaginal imaging is performed due to inadequate visualization transabdominally. FINDINGS: Uterus: The uterus is anteverted and measures 9.95 x 6.0 x 7.0 cm The double wall endometrium is not visualized. The uterus is smooth in contour and has normal myometrial echogenicity. There is a hypoechoic large lesion corresponding to a fibroid in the fundal uterus measuring 7.6 x 5.9 x 8.2 cm, likely a fibroid. No additional lesions seen. Small nabothian cysts are seen in the cervix. Adnexa: Both ovaries are visualized on transabdominal ultrasound only. There is normal color flow to the adnexa. There is no ovarian torsion. There is no pelvic ascites or fluid collection. Right ovary measures 1.2 x 0.90 x 1.3 cm and volume 0.73 mL. There is no focal lesion seen. Left ovary measures 3.2 x 1.5 x 2.1 cm and volume 5.3 mL. There is no focal lesion seen. US/US pelvic complete IMPRESSION: 1. Large uterine fibroid in the fundus. 2. The ovaries are unremarkable.
== END 2022-01-01 15:19 | disposition home or self-care (01) ==
LOC: HO.HMGCX 15:18
PROVIDERS: PCP Nurse Practitioner Family; Visit Provider Nurse Practitioner Family
DX: D25.9 Leiomyoma of uterus, unspecified (principal)
CPT/HCPCS: 76856

== ENCOUNTER 2022-01-08 07:50 | Outpatient (REF) | payer OTHER, SELFPAY ==
[2022-01-08 11:35] LABS: Hematocrit 41.2 % (37.0-47.0); Hemoglobin 13.2 g/dl (12.0-16.0); Mean Corpuscular Hemoglobin 28.4 pg (27.0-33.0); Mean Corpuscular Volume 88.6 fL (80.0-98.0); Platelet Count 404 X10*3/uL (160-400); Red Blood Count 4.65 X10*6/uL (4.20-5.50); Red Cell Distribution Width 14.1 % (11.0-16.0)
[2022-01-08 11:57] LABS: Alanine Aminotransferase 27 U/L (0-31); Albumin Level 4.3 g/dL (3.5-5.0); Alkaline Phosphatase 100 U/L (39-117); Anion Gap 12 (12-20); Aspartate Amino Transferase 33 U/L (5-31); Bilirubin Total 0.7 mg/dL (0.0-1.0); Blood Urea Nitrogen 12 mg/dL (9-16); Carbon Dioxide 25 mmol/L (22-29); Chloride 107 mmol/L (96-108); Cholesterol 197 mg/dL; Estimated Glomerular Filt Rate > 60; Glucose Random 98 mg/dL (60-115); HDL Cholesterol 39 mg/dL; LDL Cholesterol Calculated 127 mg/dl; Potassium 4.7 mmol/L (3.3-5.1); Sodium 139 mmol/L (135-145); Total Protein 6.6 g/dL (6.5-8.0); Triglycerides 156 mg/dL
[2022-01-08 12:11] LABS: HIV AB/AG Nonreactive (Nonreactive); HIV Num 1 0.08 S/CO (0.00-0.99); ~HepC Num1 0.17 S/CO (0.00-0.79); ~Hepatitis C Antibody Nonreactive (Nonreactive)
[2022-01-08 12:18] LABS: Thyroid Stimulating Hormone 1.31 uIU/mL (0.32-4.0); Vitamin D 25-OH Total 18.2 ng/mL (>30)
== END 2022-01-08 07:51 | disposition home or self-care (01) ==
LOC: HO.HMGCLDS 07:50
PROVIDERS: Visit Provider Nurse Practitioner Family
DX: Z01.818 Encounter for other preprocedural examination (principal); Z11.4 Encounter for screening for human immunodeficiency virus [HIV]; Z11.59 Encounter for screening for other viral diseases; E55.9 Vitamin D deficiency, unspecified; E03.9 Hypothyroidism, unspecified; E78.00 Pure hypercholesterolemia, unspecified
CPT/HCPCS: 36415; 80053; 80061; 82306; 84443; 85027; 86803; 87389

== ENCOUNTER 2022-01-09 07:35 | Outpatient (REF) | payer OTHER, SELFPAY ==
--- NOTE | ~2022-01-09 | XR_ITS ---
EXAMINATION: XR SHOULDER, RIGHT CLINICAL INFORMATION: Shoulder pain COMPARISON: Radiographs right shoulder 10/25/2018 TECHNIQUE: Right shoulder is imaged in 3 views. FINDINGS: No fracture, dislocation, or destructive process. Normal bony mineralization. The glenohumeral joint is normal. The acromioclavicular alignment is normal. There are no visible rotator cuff calcifications. Right lung apex is clear. XR/XR shoulder RT min 2V IMPRESSION: Normal right shoulder.
== END 2022-01-09 07:36 | disposition home or self-care (01) ==
LOC: HO.HOSX 07:35
PROVIDERS: Visit Provider Physician Assistant
DX: M75.101 Unspecified rotator cuff tear or rupture of right shoulder, not specified as traumatic (principal); M70.62 Trochanteric bursitis, left hip
CPT/HCPCS: 20610; 73030; J1040

== ENCOUNTER 2022-02-04 07:54 | Outpatient (REF) | payer OTHER, SELFPAY ==
[2022-02-04 11:27] LABS: Alanine Aminotransferase 17 U/L (0-31); Aspartate Amino Transferase 20 U/L (5-31)
== END 2022-02-04 07:55 | disposition home or self-care (01) ==
LOC: HO.HMGCLDS 07:54
PROVIDERS: Visit Provider Nurse Practitioner Family
DX: R94.5 Abnormal results of liver function studies (principal)
CPT/HCPCS: 36415; 84450; 84460

== ENCOUNTER 2022-03-10 08:56 | Outpatient (REF) | payer OTHER, SELFPAY ==
--- NOTE | ~2022-03-10 | US_ITS ---
EXAMINATION: US PELVIS CLINICAL INFORMATION: Fibroids. COMPARISON: Pelvic ultrasound 01/01/2022. TECHNIQUE: Ultrasound of the pelvis is performed using both transabdominal and transvaginal transducers along with Doppler. Transvaginal imaging is performed due to inadequate visualization transabdominally. FINDINGS: The uterus is anteverted and anteflexed measuring 9.8 x 5.9 x 8.2 cm. A large fundal fibroid is redemonstrated measuring 7.4 x 5.9 x 6.8 cm, previously 7.6 x 5.9 x 8.2 cm. No new fibroid. The endometrium is not well visualized due to distortion from the adjacent fibroids. The right ovary is not visualized. The left ovary is only visualized transabdominally measuring 1.8 x 1.1 x 1.7 cm (volume of 2 mL) appearing normal in morphology with preserved flow at the moment of this examination. No free fluid. US/US pelvic and transvaginal IMPRESSION: A 7.4 cm uterine fibroid is similar to slightly decreased in size.
== END 2022-03-10 08:57 | disposition home or self-care (01) ==
LOC: HO.HMGCX 08:56
PROVIDERS: Visit Provider Student in an Organized Health Care Education/Training Program
DX: D25.9 Leiomyoma of uterus, unspecified (principal)
CPT/HCPCS: 76830; 76856

== ENCOUNTER 2022-03-16 08:01 | Outpatient (REF) | payer OTHER, SELFPAY ==
--- NOTE | ~2022-03-16 | XR_ITS ---
EXAMINATION: XR KNEE AP STANDING CLINICAL INFORMATION: Knee pain COMPARISON: None TECHNIQUE: AP standing view of both knees as well as lateral and sunrise views of the left knee. FINDINGS: AP standing view of both knees demonstrates maintenance of the medial and lateral joint space compartments without degenerative marginal spurring. No destructive bony lesions or fractures are identified. Lateral and sunrise views of the left knee do not demonstrate any evidence of acute fracture or dislocation. No left knee effusion is seen. Patellofemoral joint space is maintained with minimal spurring most prominent about the medial facet. XR/XR knee standing BI IMPRESSION: Mild degenerative change of the left knee patellofemoral joint. No fracture or effusion.
--- NOTE | ~2022-03-16 | XR_ITS ---
EXAMINATION: XR KNEE AP STANDING CLINICAL INFORMATION: Knee pain COMPARISON: None TECHNIQUE: AP standing view of both knees as well as lateral and sunrise views of the left knee. FINDINGS: AP standing view of both knees demonstrates maintenance of the medial and lateral joint space compartments without degenerative marginal spurring. No destructive bony lesions or fractures are identified. Lateral and sunrise views of the left knee do not demonstrate any evidence of acute fracture or dislocation. No left knee effusion is seen. Patellofemoral joint space is maintained with minimal spurring most prominent about the medial facet. XR/XR knee LT 2V IMPRESSION: Mild degenerative change of the left knee patellofemoral joint. No fracture or effusion.
== END 2022-03-16 08:02 | disposition home or self-care (01) ==
LOC: HO.HOSX 08:01
PROVIDERS: Visit Provider Physician Assistant
DX: M25.562 Pain in left knee (principal)
CPT/HCPCS: 73560; 73565

== ENCOUNTER 2022-03-16 17:00 | Outpatient (RCR) | payer OTHER, SELFPAY ==
--- NOTE | 2021-12-02 08:06 | MHC.PT.EP ---
[facility] [place] [facility] [place] [facility] [place] [facility] [address] Melanie Samayoa [address] [phone] F: [phone] F: [phone] F: [phone] F: [phone] Physical Therapy Plan of Care Date of Evaluation: Date of Surgery: Diagnosis: This is a 66 yo female presenting to skilled PT with a script for trochanteric bursitis of L hip Assessment: This is a 66 yo female presenting to skilled PT with a script for trochanteric bursitis of L hip. Pain started apr 2021 without significant injury or symptom magnification (she did recently change her mattress then and thought her pain was stemming from this. She returned to her old mattress but pain remained). Pain is located at the L lateral hip radiates to the lateral knee (and then surrounds the knee). Pain is worse at night, laying on either side but can also increase with walking (longer than a block) and sitting at work as well. Pain is described as sharp. She had a lumbar fusion about 20 years ago but this pain feels different than her symptoms in the past. She is being followed by [facility] ortho and had a cortisone injection as well as MRI (she does not have a follow up appointment scheduled as of yet). She has also tried a heating pad and meloxicam for pain management so far. Assessment reveals pain that ranges up to an 8/10. She demos decreased lumbar and hip ROM, decreased hip, glut and core strength, impaired gait pattern, impaired joint mobility at lumbar and hip joints as well as gross functional decline with laying on either side, walking or sitting too long. Evaluation demos + tests for SIJ involvement (see eval) and is very tender along ITB and Piri. She is a good candidate for skilled PT 2x/wk for 5wks. Frequency and Duration: The patient will be seen 2x/wk for 5wks Short Term Goals: I in HEP Patient will demo proper pelvic neutral alignment with good core stab without cues from PT Demo proper squat and hip hinge techniques without cues from PT Shelter Goals: Patient will tolerate sleeping through the night without waking from pain Demos functional ROM and strength Improve LEFs by at least 10 points Improve pain at the worst to no more than 2/10 Demo proper lifting techniques without increase in pain or radiating symptoms Treatment Plan: Modalities to reduce pain, spasms and effusion. Manual therapy to restore motion and function. Therapeutic exercise to improve strength and flexibility. Neuromuscular re-education for posture and balance. Therapeutic activities to return to functional activities of daily living. Electronically signed by: Margaret Regan PT Please sign and return to therapist. Thank you for your referral.
--- NOTE | 2022-03-17 11:48 | MHC.PT.DC ---
[facility] [place] [facility] [place] [facility] [place] [facility] [address] Melanie Samayoa [address] [phone] F: [phone] F: [phone] F: [phone] F: [phone] Physical Therapy Discharge Report Diagnosis: This is a 66 yo female presenting to skilled PT with a script for trochanteric bursitis of L hip Date of Surgery: Date of Evaluation: 12/01/21 Date of Discharge: 03/17/22 Treatments to Date: 13 Cancellations to Date: 0 No Shows to Date: 0 Discharge Status: Improved Function Independent with HEP Physician Discontinued Tx Discharge Summary: Pt I with HEP. She saw the ortho who is holding PT at this time so today is DC day. Reviewed HEP once more, educated on self tissue release, stockings for pain and pain management techniques for at home. She demos improved hip pain but continues to report general aches and pains at the hips, knees, shoulder and elbow. At this point we have exhausted our POC with PT and DC to HEP. Electronically signed by: Margaret Regan PT Please sign and return to therapist. Thank you for your referral.
== END 2022-03-17 11:48 | disposition home or self-care (01) ==
LOC: HO.PTCHIC 17:00
PROVIDERS: PCP Nurse Practitioner Family; Visit Provider Physician Assistant
DX: M70.62 Trochanteric bursitis, left hip (principal)
CPT/HCPCS: 97014; 97110; 97140; 97162

== ENCOUNTER → 2022-04-03 09:59 | Outpatient (BNVA) | payer OTHER, SELFPAY | PROVIDERS: PCP Nurse Practitioner Family; Visit Provider Orthopaedic Surgery | DX: M75.101 Unspecified rotator cuff tear or rupture of right shoulder, not specified as traumatic (principal) | CPT/HCPCS: 20610; J1040 ==

== ENCOUNTER 2022-05-14 17:49 | Outpatient (REF) | payer OTHER, SELFPAY ==
--- NOTE | ~2022-05-14 | MR_ITS ---
EXAMINATION: MR LUMBAR SPINE WITHOUT CONTRAST CLINICAL INFORMATION: 67-year-old with self-reported low back pain radiating to the left leg. History of surgery in 2004. Postlaminectomy syndrome. COMPARISON: No previous lumbar imaging. TECHNIQUE: MRI of the lumbar spine was obtained using routine sequences without contrast. FINDINGS: Coronal Alignment: [id number] thoracolumbar levocurvature, convex to the left at T12-L1. Sagittal Alignment: Slight lordotic reversal centered at L1-L2. No spondylolisthesis or spondylolysis. Lumbosacral Junction: Normal. 5 nonrib-bearing lumbar-type vertebral bodies. Vertebral Bodies: Normal height. Disc Spaces and Endplates: Evidence of previous ALIF procedure at the L3-L4 level with ferromagnetic artifact noted. Mild to moderate multilevel anterolateral spondylosis throughout the lumbar spine is noted, with disc desiccation at L1-L2, L4-L5 and L5-S1 and to a lesser degree at L2-L3. Mild disc space height loss at L1-L2 with Schmorl's nodes. Spinal Canal: No abnormal developmental findings. Bone Marrow: No significant marrow-replacing process or bone marrow edema. 2.3 cm benign vertebral hemangioma in the L4 vertebral body noted. 1.2 cm benign vertebral hemangioma in the S1 vertebral body. Subcentimeter benign vertebral hemangioma within the T11 vertebral body. Type II degenerative marrow signal changes noted along the endplates at L3-L4 and L4-L5. Conus Medullaris: Terminates at L1. Morphology and signal is normal. Intradural Nerve Roots: Within normal limits. L5-S1: Small right-sided foraminal disc protrusion noted without neural impingement. Moderate right-sided and moderate to severe left-sided facet arthropathy noted without significant canal stenosis. Mild bilateral neural foraminal stenosis noted without exiting neural impingement. L4-L5: Concentric disc bulging is noted with right lateral annular fissuring and a superimposed right-sided extra foraminal/foraminal disc herniation. There is impingement on the extra foraminal right L4 nerve root. Ligamentum flavum thickening is noted with [id number] bilateral facet arthropathy, with mild trefoil spinal canal stenosis. Moderate right-sided and mild left-sided neural foraminal stenosis is noted. L3-L4: Status post anterior interbody fusion at this level with metallic hardware artifact noted with no significant facet arthrosis, canal or neuroforaminal stenosis. L2-L3: Minor annular bulging noted. Mild facet arthropathy noted bilaterally. No canal or neuroforaminal stenosis. L1-L2: Diffuse disc bulging noted with mild flattening of the ventral dural sac without significant facet arthrosis, canal or neuroforaminal stenosis. Paraspinal/Retroperitoneal: There is an 8 cm uterine fundal mass, which is only partially imaged and is consistent with a uterine leiomyoma as noted on previous ultrasound of 03/12/2022. The paravertebral soft tissues appear grossly unremarkable. Slight prominence of the confluence of the medial and lateral limbs of the left adrenal gland is noted, which is unchanged from previous CT of 12/05/2021. MR/MR lumbar spine wo con IMPRESSION: 1. [id number] thoracolumbar levocurvature convex to the left at T12-L1 with slight lordotic reversal centered at L1-L2, unchanged from previous CT abdomen. 2. Postoperative changes at the L3-L4 consistent with previous anterior lumbar interbody fusion. 3. Multilevel discogenic degenerative change and spondylosis as described by level above, with disc bulging and right lateral disc herniation at L4-L5 impinging on the extraforaminal right L4 nerve root, disc bulging at L1-L2 with mild flattening of the ventral dural sac and minor annular bulging at L2-L3 with a small right foraminal disc protrusion at L5-S1. 4. Multilevel bilateral facet arthropathy with mild trefoil spinal canal narrowing at L4-L5. Moderate right-sided and mild left-sided neural foraminal stenosis at L4-L5 and mild bilateral neural foraminal stenosis at L5-S1. 5. Abdominal and pelvic findings as discussed above.
== END 2022-05-14 17:50 | disposition home or self-care (01) ==
LOC: HO.MRI 17:49
PROVIDERS: Visit Provider Internal Medicine
DX: M96.1 Postlaminectomy syndrome, not elsewhere classified (principal); M54.16 Radiculopathy, lumbar region
CPT/HCPCS: 72148

== ENCOUNTER → 2022-07-10 12:12 | Outpatient (BNVA) | payer OTHER, SELFPAY | PROVIDERS: PCP Nurse Practitioner Family; Visit Provider Physician Assistant | DX: M75.101 Unspecified rotator cuff tear or rupture of right shoulder, not specified as traumatic (principal); M25.562 Pain in left knee; M96.1 Postlaminectomy syndrome, not elsewhere classified; M54.16 Radiculopathy, lumbar region | CPT/HCPCS: 20610; J1040 ==

== ENCOUNTER 2022-07-21 17:00 | Outpatient (RCR) | payer OTHER, SELFPAY ==
--- NOTE | 2022-06-04 17:55 | MHC.PT.EP ---
[facility] [place] Office [place] Office [place] Office [address] Melanie Samayoa [address] [phone] F: [phone] F: [phone] F: [phone] F: [phone] Physical Therapy Plan of Care Date of Evaluation: Date of Surgery: n/a Diagnosis: lumbar radiculopathy, postlaminectomy syndrome Assessment: Patient is a 67 year old female presenting to PT with complaints of pain in her low back. Pt reports onset of pain began about 1 year ago due to insidious onset. She presents today with impairments in pain, core strength, hip strength, and posture. Pt's current occupation is in referrals at [employer] [facility] [place], with baseline physical activities including work, ADLs, bending, lifting, sleep. Pt expresses correction goal of reducing pain, and is motivated to work towards this in PT. Clinical presentation today is most consistent with signs and sx associated with chronic low back pain and pt will benefit from skilled PT to address the following problems and impairments noted upon evaluation: pain, core strength, hip strength, and posture. These problems limit the patient with the following functional activities: work, ADLs, bending, lifting, sleep. The prescribed treatment plan of care is medically necessary. Co-morbidities of hx L3-4 lumbar fusion in 2003 were identified and taken into considerations of plan of care. Pt was educated on HEP, role of PT, prognosis, POC. Frequency and Duration: The patient will be seen 2 x week x 4 weeks Short Term Goals: Pt will demonstrate ability to perform PPT with good TA recruitment in 2 weeks. Pt will demonstrate improved hip MMT 1/3 grade in 2 weeks for improved lumbopelvic stability. Pt will demonstrate less intensity of radicular pain in 2 weeks. Pt will demonstrate improved postural awareness by sitting with biomechanically correct posture without cues throughout session to improve overall postural function in 2 weeks. Mcfp Goals: Pt will demonstrate improved Lorna score by 10% in 4 weeks for improved functional mobility. Pt will demonstrate ability to sleep through the night with min to no pain in 4 weeks for improved QOL. Pt will demonstrate ability to perform ADLs with min to no pain in 4 weeks. Treatment Plan: Modalities to reduce pain, spasms and effusion. Manual therapy to restore motion and function. Therapeutic exercise to improve strength and flexibility. Neuromuscular re-education for posture and balance. Therapeutic activities to return to functional activities of daily living. Electronically signed by: Teetee French PT, DPT, ATC Please sign and return to therapist. Thank you for your referral.
--- NOTE | 2022-07-24 14:46 | MHC.PT.DC ---
[facility] [place] Office [place] Office [place] Office [address] [place]ay[place] [address] [phone] F: [phone] F: [phone] F: [phone] F: [phone] Physical Therapy Discharge Report Diagnosis: lumbar radiculopathy, postlaminectomy syndrome Date of Surgery: n/a Date of Evaluation: 06/04/22 Date of Discharge: 07/24/22 Treatments to Date: 4 Cancellations to Date: 5 No Shows to Date: 0 Discharge Status: Patient Elected to Stop Discharge Summary: Pt called and self d/c. Pt to follow up with MD. Electronically signed by: Teetee French, PT, DPT, ATC Please sign and return to therapist. Thank you for your referral.
== END 2022-07-24 14:47 | disposition home or self-care (01) ==
LOC: HO.PTCHIC 17:00
PROVIDERS: PCP Nurse Practitioner Family; Visit Provider Internal Medicine
DX: M54.16 Radiculopathy, lumbar region (principal); M96.1 Postlaminectomy syndrome, not elsewhere classified
CPT/HCPCS: 97110; 97112; 97162

== ENCOUNTER 2022-07-23 08:09 | Outpatient (REF) | payer OTHER, SELFPAY ==
[2022-07-23 10:29] LABS: MANUAL DIFF FLAG NO
[2022-07-23 10:32] LABS: Basophils Absolute Auto 0.1 X10*3/uL (0.0-0.2); Basophils Percent Auto 0.5 % (0-2); Eosinophils Absolute Auto 0.2 X10*3/uL (0.0-0.4); Hematocrit 41.7 % (37.0-47.0); Hemoglobin 13.5 g/dl (12.0-16.0); Imm Gran Abs Auto 0.06 X10*3/uL (0.00-0.03); Imm Gran Pct Auto 0.6 % (0.0-0.4); Lymphocytes Absolute Auto 2.2 X10*3/uL (1.2-4.9); Lymphocytes Percent Auto 23.8 % (20-40); Mean Corpuscular HGB Conc 32.4 g/dl (31.0-35.0); Mean Corpuscular Hemoglobin 28.3 pg (27.0-33.0); Mean Corpuscular Volume 87.4 fL (80.0-98.0); Mean Platelet Volume 11.6 fL (9.4-12.3); Monocytes Absolute Auto 0.7 X10*3/uL (0.1-1.2); Monocytes Percent Auto 7.6 % (2-11); Neutrophils Absolute Auto 6.1 x10*3/uL (2.0-8.3); Neutrophils Percent Auto 65.5 % (45-73); Platelet Count 330 X10*3/uL (160-400); Red Blood Count 4.77 X10*6/uL (4.20-5.50); Red Cell Distribution Width 13.7 % (11.0-16.0); White Blood Count 9.4 X10*3/uL (4.8-10.8)
[2022-07-23 11:09] LABS: Alanine Aminotransferase 15 U/L (0-31); Albumin Level 4.1 g/dL (3.5-5.0); Alkaline Phosphatase 68 U/L (39-117); Anion Gap 10 (12-20); Aspartate Amino Transferase 18 U/L (5-31); Bilirubin Total 0.5 mg/dL (0.0-1.0); Blood Urea Nitrogen 15 mg/dL (9-16); Calcium 9.6 mg/dL (8.4-10.2); Carbon Dioxide 26 mmol/L (22-29); Chloride 105 mmol/L (96-108); Estimated Glomerular Filt Rate > 60; Glucose Fasting 84 mg/dL (60-99); Potassium 3.9 mmol/L (3.3-5.1); Sodium 137 mmol/L (135-145)
== END 2022-07-23 08:10 | disposition home or self-care (01) ==
LOC: HO.10HDL 08:09
PROVIDERS: Visit Provider Nurse Practitioner Family
DX: R10.10 Upper abdominal pain, unspecified (principal)
CPT/HCPCS: 36415; 80053; 85025

== ENCOUNTER 2022-08-13 08:00 | Outpatient (RCR) | payer OTHER, SELFPAY ==
[2022-07-30 15:01] VITALS: BP 115/65; PULSE 65
== END 2022-10-01 13:48 | disposition home or self-care (01) ==
LOC: HO.PT 08:00
PROVIDERS: PCP Nurse Practitioner Family; Visit Provider Nurse Practitioner Family
DX: R42 Dizziness and giddiness (principal)
CPT/HCPCS: 95992; 97112; 97161

== ENCOUNTER → 2022-10-06 15:23 | Outpatient (BNVA) | payer OTHER, SELFPAY | PROVIDERS: PCP Nurse Practitioner Family; Visit Provider Physician Assistant | DX: M75.101 Unspecified rotator cuff tear or rupture of right shoulder, not specified as traumatic (principal) | CPT/HCPCS: 20610; J1040 ==

== ENCOUNTER 2022-10-19 07:30 | Day surgery (SDC) | payer OTHER, SELFPAY ==
[2022-10-14 16:35] VITALS: BMI 25.4
--- NOTE | 2022-10-15 09:05 | MHC.SHP ---
Pre-Procedural Eval Section A Date of Service: 10/15/22 The patient is an INPATIENT: No Changes since office visit: Yes Cold of Flu in the past 2 weeks, Yes New Medical Problems, Yes Changes in Medication and Yes Patient answered all questions Section B Chief Complaint: Age-related nuclear cataract, left eye Allergies: Allergies Allergy/AdvReac Type Severity Reaction Status Date / Time gluten [Gluten] Allergy Severe Gastrointestinal Verified 10/06/22 15:38 Upset Penicillins Allergy Intermediate Rash Verified 10/06/22 15:38 Sulfa (Sulfonamide Allergy Intermediate Rash Verified 10/06/22 15:38 Antibiotics) Codeine Phosphate Allergy Intermediate Nausea Uncoded 06/19/22 10:48 Plan I have reviewed the history and physical and performed a pertinent physical examination on my patient. No changes have occurred unless specified. Time Spent With Patient Time: Total time managing care of this patient today ____ minutes.
--- NOTE | 2022-10-15 09:05 | MHC.SHP ---
Pre-Procedural Eval Section A Date of Service: 10/15/22 The patient is an INPATIENT: No Changes since office visit: No Cold of Flu in the past 2 weeks, No New Medical Problems, No Changes in Medication and No Patient answered all questions The History & Physical has been completed within 30 days and I have reviewed it.: Yes Section B Chief Complaint: Age-related nuclear cataract, left eye Allergies: Allergies Allergy/AdvReac Type Severity Reaction Status Date / Time gluten [Gluten] Allergy Severe Gastrointestinal Verified 10/06/22 15:38 Upset Penicillins Allergy Intermediate Rash Verified 10/06/22 15:38 Sulfa (Sulfonamide Allergy Intermediate Rash Verified 10/06/22 15:38 Antibiotics) Codeine Phosphate Allergy Intermediate Nausea Uncoded 06/19/22 10:48 Plan Diagnosis/Plan: Unchanged I have reviewed the history and physical and performed a pertinent physical examination on my patient. No changes have occurred unless specified. Time Spent With Patient Time: Total time managing care of this patient today ____ minutes.
[2022-10-15 16:34] VITALS: BMI 24.5
--- NOTE | 2022-10-19 07:23 | P.CONAN_ITS ---
[facility] Active Problems Active Problems: All Active Problems (Updated 05/04/22 @ 08:35 by Akshat Serna MD) Tubular adenoma (Acute) Heartburn (Acute) Loose stools (Acute) Chest pain (Acute) Trochanteric bursitis, left hip (Acute) Bone island of left femur (Acute) Upper respiratory tract infection (Acute) Painful arc syndrome of right shoulder (Acute) Lumbar radiculopathy (Acute) Post laminectomy syndrome (Acute) Past Medical History Medical History Angina pectoris Anxiety Celiac disease Chest pain COVID-19 vaccine series completed Crescendo angina GERD (gastroesophageal reflux disease) Hypothyroidism Low back pain Restless leg syndrome Family History Family History Daughter Celiac disease Family history of problems with anesthesia: No Surgical History Surgical History History of back surgery History of esophagogastroduodenoscopy (EGD) Hx of appendectomy Hx of colonoscopy Hx of foot surgery Hx of right cataract extraction Hx of tonsillectomy History of Problems with Anesthesia: No Social History Social History Household Members: Children Household Members Other:: son age 17 Housing: House Are you a primary critical care physician assistant to a significant other at home: No Do you presently have visiting nurse or other home services: No Alcohol intake: current Alcohol intake frequency: does not drink Alcohol type: hard liquor Patient Tobacco Use Status: Former Tobacco user Quit Date: 2000 Tobacco use type: Cigarette Use of substances other than those prescribed or required for medical reasons: No Have you been hit, kicked, punched, or otherwise hurt by someone within the past year? 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 Meds Allergies Allergy/AdvReac Type Severity Reaction Status Date / Time gluten [Gluten] Allergy Severe Gastrointestinal Verified 10/19/22 08:17 Upset Penicillins Allergy Intermediate Rash Verified 10/19/22 08:17 Sulfa (Sulfonamide Allergy Intermediate Rash Verified 10/19/22 08:17 Antibiotics) Codeine Phosphate Allergy Intermediate Nausea Uncoded 10/15/22 16:31 Home Medications Medication Instructions Recorded Confirmed Last Taken Type latanoprost 0.005 % eye drops 1 drp ophthalmic-Left BEDTIME 01/28/21 10/15/22 03/12/21 History levothyroxine 88 mcg tablet 1 tab PO DAILY 01/28/21 10/15/22 10/19/22 06:15 History (Synthroid) lidocaine 5 % topical patch 1 patch topical DAILY PRN Pain 01/28/21 10/15/22 Unknown History lorazepam 0.5 mg tablet 1 tab PO BID PRN anxiety 01/28/21 10/15/22 Unknown History omeprazole 20 mg capsule,delayed 20 mg PO DAILY 03/06/21 10/15/22 10/19/22 06:15 History release pramipexole 1 mg tablet 1 mg PO BEDTIME 03/16/22 10/15/22 Unknown History ibuprofen 600 mg tablet 1 tab PO TID PRN pain 10/15/22 10/15/22 Unknown History Exam Exam Date and Time: October 19, 2022 0723 Height,Weight and Vital Signs: Height 5 ft 4 in Weight 64.864 kg Airway Mallampati Class: II TM Dist: >3cm Neck ROM: Full Heart: rrr Lungs: cta bl Assessment and Plan Assessment Anesthesia Assessment: Anesthesia Plan Discussed and Chart Reviewed Final Anesthetic Review Family History of Problems with Anesthesia: No History of Problems with Anesthesia: No NPO: Yes ASA Class: III Final Preanesthetic Review: No Changes in Pt Med Stat, Meds/Allgs Chart Reviewed and Consent Obtained/Reviewed Patient Risk: Intermediate Procedure Risk: Intermediate Anesthetic Plan Anesthetic Plan: MAC: Disposition: Standard PACU
[2022-10-19 07:54] VITALS: BP 122/75; PULSE 78; RESP 16; TEMP 36.4; O2SAT 97
[2022-10-19] MEDS: Tetracaine HCl/PF 0.5% Oph Sol 4 ML DROPS 1 DROP EYE-LEFT (08:02)
[2022-10-19] MEDS: Cyclopentolate 1 % Ophth Sol 2 ML DRPBTL 1 DROP EYE-LEFT ×3 (08:05→08:17)
[2022-10-19] MEDS: Tropicamide 1 % Ophth Sol 3 ML BTL 1 DROP EYE-LEFT ×3 (08:06→08:18)
[2022-10-19] MEDS: Ketorolac Tromethamine 0.5% Op 5 ML DROPS 1 DROP EYE-LEFT ×3 (08:08→08:19)
[2022-10-19] MEDS: Phenylephrine HCL 2.5% Oph SoL 2 ML BOTTLE 1 DROP EYE-LEFT ×3 (08:09→08:20)
[2022-10-19] MEDS: Lactated Ringers 500 ML 50 ML IV (08:09)
--- NOTE | 2022-10-19 09:11 | HO.PNOPHT ---
Ophthalmology Procedure Procedure Date of Service: 10/19/22 Ophthalmology Viscoelastic: Healjin Duet Dual Pack Pro Ophthalmology Lenses: TECNIS [id number] (24.5) Procedure Notes: PREOPERATIVE DIAGNOSIS: Decreased visual acuity left eye secondary to cataract POSTOPERATIVE DIAGNOSIS: Same PROCEDURE: Left cataract extraction with intraocular lens insertion SURGEON: Alberto Tran M.D. ANESTHESIA: Topical/MAC ESTIMATED BLOOD LOSS: None COMPLICATIONS: None After obtaining informed consent, the patient was brought to the operation room suite and placed in the supine position. After adequate sedation per anesthesia, topical drops of Tetracaine were given to the left eye. The eye was then prepped and draped in the usual sterile fashion. The operating room microscope was then positioned over the operative eye and a lid speculum placed. A paracentesis was created. Viscoelastic was then instilled into the anterior chamber. A three plane incision was then created temporally, utilizing a 2.85 mm keratome. Capsulotomy forceps were then utilized to create a circular tear capsulotomy. Hydrodissection and hydrodelineation were carried out until adequate mobilization of the nucleus occurred. Phacoemulsification was then utilized to remove the dense central nucleus followed by removal of the cortical material utilizing the automated aspiration irrigation unit. Viscoat elastic was instilled into the posterior capsular bag followed by placement of a posterior chamber intraocular lens without difficulty. The residual Viscoat elastic was then removed utilizing the automated IA machine. The wound was check and found to be watertight. The patient tolerated the procedure well and the lid speculum was removed. Intracameral injection of Vigamox 0.1 mL followed by a subtenon injection of Kenalog-40 0.2 mL were administered. The patient will be seen in the a.m.
[2022-10-19] MEDS: Acetaminophen 325 MG TABLET 650 MG PO (09:40)
[2022-10-19 09:43] VITALS: BP 111/70; PULSE 87; RESP 18; TEMP 36.2; O2SAT 98
== END 2022-10-19 09:52 | disposition home or self-care (01) ==
PROVIDERS: PCP Nurse Practitioner Family; Visit Provider Ophthalmology
PROC: (CPT 66985; principal; 2022-10-19 09:10)
DX: H25.12 Age-related nuclear cataract, left eye (principal); H40.1131 Primary open-angle glaucoma, bilateral, mild stage; Z96.1 Presence of intraocular lens; E03.9 Hypothyroidism, unspecified; K21.9 Gastro-esophageal reflux disease without esophagitis; K90.0 Celiac disease; E78.2 Mixed hyperlipidemia; F41.1 Generalized anxiety disorder; Z79.899 Other long term (current) drug therapy; Z88.0 Allergy status to penicillin; Z88.2 Allergy status to sulfonamides; Z88.8 Allergy status to other drugs, medicaments and biological substances; Z87.891 Personal history of nicotine dependence
CPT/HCPCS: 66984; J2250; J3301; V2632

== ENCOUNTER 2023-01-13 08:08 | Outpatient (REF) | payer OTHER, SELFPAY | END 2023-01-13 08:09 | disposition home or self-care (01) | LOC: HO.SH 08:08 | PROVIDERS: Visit Provider Internal Medicine | DX: Z01.118 Encounter for examination of ears and hearing with other abnormal findings (principal); H90.3 Sensorineural hearing loss, bilateral | CPT/HCPCS: 92557; 92567 ==

== ENCOUNTER 2023-02-15 09:04 | Outpatient (REF) | payer OTHER, SELFPAY ==
--- NOTE | ~2023-02-15 | XR_ITS ---
EXAMINATION: XR SHOULDER, RIGHT CLINICAL INFORMATION: Right shoulder pain COMPARISON: 01/09/2022 TECHNIQUE: Three views of the right shoulder. FINDINGS: Mild degenerative changes acromioclavicular joint with joint space narrowing and hypertrophic change. No abnormal soft tissue calcifications adjacent to the humeral head. Glenohumeral alignment maintained. Degenerative changes in the imaged upper thoracic spine. XR/XR shoulder RT min 2V IMPRESSION: Mild degenerative changes in the acromioclavicular joint.
== END 2023-02-15 09:05 | disposition home or self-care (01) ==
LOC: HO.HOSX 09:04
PROVIDERS: Visit Provider Physician Assistant
DX: S46.011A Strain of muscle(s) and tendon(s) of the rotator cuff of right shoulder, initial encounter (principal)
CPT/HCPCS: 20610; 73030; J1040

== ENCOUNTER 2023-02-25 15:23 | Outpatient (REF) | payer OTHER, SELFPAY | END 2023-02-25 15:24 | disposition home or self-care (01) | LOC: HO.HMGCX 15:23 | PROVIDERS: PCP Nurse Practitioner Family; Visit Provider Student in an Organized Health Care Education/Training Program | DX: D25.9 Leiomyoma of uterus, unspecified (principal) | CPT/HCPCS: 76830; 76856 ==

== ENCOUNTER 2023-06-14 14:28 | Emergency (ER) | payer OTHER, SELFPAY ==
--- NOTE | ~2023-06-14 | XR_ITS ---
EXAMINATION: XR CHEST CLINICAL INFORMATION: Chest pain COMPARISON: 03/13/2021 TECHNIQUE: 2 views of the chest were obtained. FINDINGS: Lungs are well-inflated and clear. Trachea is midline in position. No interstitial disease, consolidation or mass. No pleural effusion or pneumothorax. Cardiac silhouette and pulmonary vessels are normal in size. The mediastinum and david have normal contour. The visualized bones and upper abdomen are unremarkable. XR/XR chest 2V IMPRESSION: No acute cardiopulmonary abnormality.
--- NOTE | 2023-06-14 14:29 | ECG_ITS ---
Test Reason : chest pain Blood Pressure : / mmHG Vent. Rate : 077 BPM Atrial Rate : 077 BPM P-R Int : 150 ms QRS Dur : 072 ms QT Int : 374 ms P-R-T Axes : 060 022 048 degrees QTc Int : 423 ms Normal sinus rhythm Possible Left atrial enlargement Low voltage QRS Borderline ECG When compared with ECG of 13-MAR-2021 09:15, No significant change was found Referred By: Maggie Moreno Electronically Signed By:DUSTIN LOCKHART MD
[2023-06-14 14:41] VITALS: BP 166/95; PULSE 76; RESP 16; TEMP 36.6; O2SAT 99; BMI 27.8
--- NOTE | 2023-06-14 14:42 | ED.GENADULT ---
HPI - General Adult General Chief complaint: Chest Pain Stated complaint: chest and jaw pain Time Seen by Provider: 06/14/23 18:14 Source: patient Mode of arrival: ambulatory Limitations: no limitations History of Present Illness HPI narrative: Patient is a 68 year old assigned female at with a history of GERD presenting to the emergency department today with left sided chest pain, jaw pain, and feeling generally rundown. Patient states that over the last few hours she has had left sided chest pain, jaw pain, and has felt more tired and run down. Patient denies any dizziness, lightheadedness, abdominal pain, nausea, vomiting, fever, chills, blurry vision, double vision, loss of vision, difficulty breathing, shortness of breath, back pain, night sweats, pain with urination, increased urinary frequency, increased urinary urgency, blood in her urine or stool, syncope or a near syncopal episode, recent trauma or falls, bowel incontinence, bladder incontinence, bowel retention, bladder retention, or any other complaints at this time. Onset (ago): hour(s) Location: mouth and chest Severity: mild Severity scale (1-10): 3 Quality: aching and dull Pain Consistency: constant Relieving factors: none Exacerbating factors: none Associated symptoms: malaise Treatments prior to arrival: none Related Data Home Medications Medication Instructions Recorded Confirmed latanoprost 0.005 % eye drops 1 drp ophthalmic-Left BEDTIME 01/28/21 10/15/22 levothyroxine 88 mcg tablet 1 tab PO DAILY 01/28/21 10/15/22 (Synthroid) lidocaine 5 % topical patch 1 patch topical DAILY PRN Pain 01/28/21 10/15/22 lorazepam 0.5 mg tablet 1 tab PO BID PRN anxiety 01/28/21 10/15/22 omeprazole 20 mg capsule,delayed 20 mg PO DAILY 03/06/21 10/15/22 release pramipexole 1 mg tablet 1 mg PO BEDTIME 03/16/22 10/15/22 ibuprofen 600 mg tablet 1 tab PO TID PRN pain 10/15/22 10/15/22 Allergies Allergy/AdvReac Type Severity Reaction Status Date / Time gluten [Gluten] Allergy Severe Gastrointestinal Verified 02/15/23 10:09 Upset Penicillins Allergy Intermediate Rash Verified 02/15/23 10:09 Sulfa (Sulfonamide Allergy Intermediate Rash Verified 02/15/23 10:09 Antibiotics) Codeine Phosphate Allergy Intermediate Nausea Uncoded 10/15/22 16:31 Review of Systems Constitutional: Constitutional: Reports no additional constitutional complaints, Reports body ache(s), Denies chills, Denies fever(s), Reports malaise and Denies night sweats Eyes: Eyes: Reports no additional eye complaints, Denies blurry vision, Denies change in vision, Denies diplopia, Denies eye discharge, Denies loss of vision and Denies eye pain ENT: Denies dizziness Cardiovascular: Cardiovascular: Reports no additional cardiovascular complaints, Reports chest pain, Denies lightheadedness, Denies Loss of Consciousness and Denies dyspnea Respiratory: Respiratory: Reports no additional respiratory complaints and Denies dyspnea Gastrointestinal: Gastrointestinal: Reports no additional gastrointestinal complaints, Denies abdominal pain, Denies melena, Denies hematochezia, Denies change in bowel habits and Denies change in stool character Genitourinary: Genitourinary: Denies hematuria, Denies urinary frequency, Denies dysuria, Denies urinary incontinence, Denies urinary hesitancy and Denies urinary urgency Musculoskeletal: Musculoskeletal: Reports no additional musculoskeletal complaints, Denies numbness and Denies tingling Neurologic: Denies dizziness, Denies loss of vision, Denies numbness and Denies tingling Psychiatric: Psychiatric: Reports no additional psychiatric complaints Endocrine: Endocrine: Reports no additional endocrine complaints Hematologic/Lymphatic: Hematologic/Lymphatic: Reports no additional hematologic/lymphatic complaints Allergic/Immunologic: Allergic/Immunologic: Reports no additional allergic/immunologic complaints [facility] Past Medical History Attestation statement: The following information was validated with the patient. Source: old records reviewed and nursing notes reviewed Medical History Chest pain Crescendo angina Angina pectoris Hypothyroidism Low back pain COVID-19 vaccine series completed Anxiety GERD (gastroesophageal reflux disease) Celiac disease Restless leg syndrome Surgical History History of esophagogastroduodenoscopy (EGD) Hx of colonoscopy Hx of right cataract extraction Hx of foot surgery Hx of tonsillectomy Hx of appendectomy History of back surgery Family History Family History Daughter Celiac disease Social History Social History Household Members: Children Household Members Other:: son age 17 Housing: House Are you a primary home care chaplain to a significant other at home: No Do you presently have visiting nurse or other home services: No Alcohol intake: current Alcohol intake frequency: does not drink Alcohol type: hard liquor Patient Tobacco Use Status: Former Tobacco user Quit Date: 2000 Tobacco use type: Cigarette Advance Directives: No Advance Directives Information Provided: No Advance Directives Date on File: 03/14/21 service: No Current occupational status: employed 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 Physical Exam ED Vital Signs: Vital Signs - 24 hr 06/14/23 14:41 Temperature 98 F Pulse Rate 76 Respiratory Rate 16 Blood Pressure 166/95 H Pulse Oximetry 99 Oxygen Delivery Method Room Air BMI result Body Mass Index 27.8 Const General: cooperative, no acute distress, alert and awake Nutritional Appearance: well nourished Orientation/consciousness: patient oriented x3 Limitations: no limitations HENMT Head: Yes normal to inspection and Yes atraumatic Ears: hearing grossly normal bilaterally and external ears normal General nose exam: Normal external nose present, no nasal discharge noted and no epistaxis Face and sinus: Yes normal facial exam, No abrasion and No laceration Mouth: Normal oral and palatal mucosa present, no drooling and no muffled voice Eyes General: appearance normal, both eyes and all related structures Periorbital: periorbital findings normal Eyelids: Yes eyelids normal Conjunctivae: conjunctivae normal Pupils: Equal, round and reactive pupils present EOM: EOMs intact bilaterally Neck Neck: Yes normal visual inspection, Yes full ROM and Yes no lymphadenopathy Chest Chest palpation & inspection: normal inspection of the chest Resp Effort & Inspection: normal respiratory effort and able to speak in complete sentences Auscultation: clear to auscultation bilaterally Cardio Rate: regular rate Rhythm: regular rhythm GI Inspection: Yes normal to inspection Neuro General: patient oriented x3 and moves all extremities Cranial nerves: Yes Equal, round and reactive pupils present Cognition (Neuro): normal cognition Motor exam (neuro): 5/5 motor strength present throughout Sensory Exam: Normal double simultaneous stimulation for sensation Coordination: [id number] test normal Extrem General: Yes normal to inspection, Yes full ROM and Yes capillary refill normal Psych Appearance: grossly normal Mental Status: mental status grossly normal Affect: normal affect Attitude: cooperative Thought process: Normal thought process present Thought content: Normal thought content present Insight: Good insight present (Psych) Course Course Course Narrative: RME performed by Maggie Moreno PA-C. Patient is a 68 year old assigned female at presenting to the emergency department with left sided chest pain. Labs, imaging, and swab ordered. Patient placed back in the waiting room pending room availability and results. Medical Decision Making Medical Decision Making MDM Narrative: Patient is a 68 year old assigned female at with a history of GERD presenting to the emergency department today with chest pain, jaw pain, and general malaise. Patient's physical exam was unremarkable. Patient's blood work was unremarkable. Patient's EKG was unremarkable. Patient's chest x-ray showed no acute process. Patient's COVID-19 test was positive. I explained my physical exam findings as well as all test results to the patient. I answered all questions asked by the patient. I stressed the importance of the patient taking her medication as prescribed. I stressed the importance of the patient following up with her primary care provider. I stressed the importance of the patient returning to the emergency department immediately if her symptoms were to worsen or if she were to develop any dizziness, shortness of breath, difficulty breathing, chest pain, blurry vision, loss of vision, nausea, vomiting, abdominal pain, fever, chills, back pain, or any other complaints. Patient verbalized agreement and understanding with this treatment plan and discharge. Differential Diagnosis Differential Diagnoses: The differential diagnosis associated with the presentation includes Chest pain NSTEMI STEMI COVID-19 Viral illness Admission/Observation Consideration of admission/observation: Escalation of care including admission/observation considered Patient would have been admitted to the hospital had her work up had any findings where hospital admission was appropriate and her clinical presentation warranted hospital admission. Lab Data [facility] Lab Attestation statement: I reviewed the patient's lab results. My interpretation of these results are in the [facility] Rationale portion of this note. 06/14/23 16:27 06/14/23 16:27 Labs: Lab Results 06/14/23 06/14/23 Range/Units 16:26 16:27 WBC 6.4 (4.8-10.8) X10*3/uL RBC 4.66 (4.20-5.50) X10*6/uL Hgb 13.9 (12.0-16.0) g/dl Hct 41.6 (37.0-47.0) % MCV 89.3 (80.0-98.0) fL MCH 29.8 (27.0-33.0) pg MCHC 33.4 (31.0-35.0) g/dl RDW 13.2 (11.0-16.0) % Plt Count 334 (160-400) X10*3/uL MPV 11.3 (9.4-12.3) fL Immature Gran % (Auto) 0.3 (0.0-0.4) % Neut % (Auto) 66.3 (45-73) % Lymph % (Auto) 20.3 (20-40) % Conway % (Auto) 10.0 (2-11) % Eos % (Auto) 2.3 (0-4) % Baso % (Auto) 0.8 (0-2) % Lymph # (Auto) 1.3 (1.2-4.9) X10*3/uL Conway # (Auto) 0.6 (0.1-1.2) X10*3/uL Eos # (Auto) 0.2 (0.0-0.4) X10*3/uL Baso # (Auto) 0.1 (0.0-0.2) X10*3/uL Abs Immat Gran (auto) 0.02 (0.00-0.03) X10*3/uL Absolute Neuts (auto) 4.2 (2.0-8.3) x10*3/uL Absolute Nucleated RBC 0.000 (0.0-0.012) X10*3/uL Nucleated RBC % (auto) 0.0 (0.0-0.2) /100WBC PT 11.2 (11.1-13.3) SEC INR 0.9 (0.9-1.1) APTT 28.9 (26.0-36.4) SEC Sodium 142 (135-145) mmol/L Potassium 4.1 (3.3-5.1) mmol/L Chloride 108 (96-108) mmol/L Carbon Dioxide 26 (22-29) mmol/L Anion Gap 12 (12-20) BUN 9 (9-16) mg/dL Creatinine 0.76 (0.5-1.4) mg/dL Estim Creat Clear Calc 68.9 Estimated GFR > 60 Random Glucose 91 (60-115) mg/dL Calcium 10.7 H D (8.4-10.2) mg/dL Magnesium 2.3 (1.6-2.6) mg/dL Total Bilirubin 0.4 (0.0-1.0) mg/dL AST 41 H (5-31) U/L ALT 50 H (0-31) U/L Alkaline Phosphatase 93 (39-117) U/L Troponin I High Sens < 2.7 (<3.5-17.0) ng/L B-Natriuretic Peptide 39 (<100) pg/mL Total Protein 7.0 (6.5-8.0) g/dL Albumin 4.5 (3.5-5.0) g/dL Influenza Type A (PCR) NEGATIVE (Negative) Influenza Type B (PCR) NEGATIVE (Negative) RSV RNA Qual (PCR) NEGATIVE (Negative) SARS-CoV-2 RNA (RT-PCR) POSITIVE A (Negative) Independent Interpretation I performed an independent interpretation of an: EKG and Plain X-Ray Interpretation: My interpretation is in agreement with the radiologist's impression of this imaging study. EXAMINATION: XR CHEST CLINICAL INFORMATION: Chest pain COMPARISON: 03/13/2021 TECHNIQUE: 2 views of the chest were obtained. FINDINGS: Lungs are well-inflated and clear. Trachea is midline in position. No interstitial disease, consolidation or mass. No pleural effusion or pneumothorax. Cardiac silhouette and pulmonary vessels are normal in size. The mediastinum and david have normal contour. The visualized bones and upper abdomen are unremarkable. XR/XR chest 2V IMPRESSION: No acute cardiopulmonary abnormality. Dictated By: Cuco Acevedo MD Signed By: Electronically signed by Cuco Acevedo MD 06/14/23 1617 Vent. Rate: 077 BPM Atrial Rate: 077 BPM P-R Int: 150 ms QRS Dur: 072 ms QT Int: 374 ms P-R-T Axes: 060 022 048 degrees QTc Int: 423 ms Normal sinus rhythm Possible Left atrial enlargement Low voltage QRS Borderline ECG When compared with ECG of 13-MAR-2021 09:15, No significant change was found Electronically Signed By:DUSTIN LOCKHART MD Dictated By: Marcelo Lockhart MD Signed By: Electronically signed by Marcelo Lockhart MD 06/14/23 3082 Radiology Impression Discussion of test interpretation with radiology: I have reviewed the radiologist's reading. Discharge Plan Discharge Clinical Impression: COVID-19 Patient Disposition: Home, Self-Care Instructions: COVID-19 (Coronavirus Disease 2019) (ED) Additional Instructions: Follow up with your primary care provider. Return to the emergency department immediately if your symptoms worsen or if you develop any dizziness, shortness of breath, difficulty breathing, chest pain, blurry vision, loss of vision, nausea, vomiting, abdominal pain, fever, chills, back pain, or any other complaints. Prescriptions: No Action latanoprost 0.005 % drops 1 drp ophthalmic-Left BEDTIME levothyroxine [Synthroid] 88 mcg tablet 1 tab PO DAILY lorazepam 0.5 mg tablet 1 tab PO BID PRN (Reason: anxiety) lidocaine 5 % adhesive patch,medicated 1 patch topical DAILY PRN (Reason: Pain) ibuprofen 600 mg tablet 1 tab PO TID PRN (Reason: pain) omeprazole 20 mg capsule,delayed release(DR/EC) 20 mg PO DAILY pramipexole 1 mg tablet 1 mg PO BEDTIME Referrals: Rachna Bernard NP [Primary Care Provider] - Interventions: ED Discharge Assessment Last Done: 06/14/23 18:17 Discharge Date/Time: 06/14/23 18:27 Print Language: Tajik
[2023-06-14 16:32] LABS: MANUAL DIFF FLAG NO
[2023-06-14 16:40] LABS: INTERNATIONAL NORM RATIO 0.9 (0.9-1.1); Prothrombin Time 11.2 SEC (11.1-13.3)
[2023-06-14 16:42] LABS: Basophils Absolute Auto 0.1 X10*3/uL (0.0-0.2); Basophils Percent Auto 0.8 % (0-2); Eosinophils Absolute Auto 0.2 X10*3/uL (0.0-0.4); Eosinophils Percent Auto 2.3 % (0-4); Hematocrit 41.6 % (37.0-47.0); Hemoglobin 13.9 g/dl (12.0-16.0); Imm Gran Abs Auto 0.02 X10*3/uL (0.00-0.03); Imm Gran Pct Auto 0.3 % (0.0-0.4); Lymphocytes Absolute Auto 1.3 X10*3/uL (1.2-4.9); Lymphocytes Percent Auto 20.3 % (20-40); Mean Corpuscular HGB Conc 33.4 g/dl (31.0-35.0); Mean Corpuscular Hemoglobin 29.8 pg (27.0-33.0); Mean Corpuscular Volume 89.3 fL (80.0-98.0); Mean Platelet Volume 11.3 fL (9.4-12.3); Monocytes Absolute Auto 0.6 X10*3/uL (0.1-1.2); Neutrophils Absolute Auto 4.2 x10*3/uL (2.0-8.3); Neutrophils Percent Auto 66.3 % (45-73); Partial Thromboplastin Time 28.9 SEC (26.0-36.4); Platelet Count 334 X10*3/uL (160-400); Red Blood Count 4.66 X10*6/uL (4.20-5.50); Red Cell Distribution Width 13.2 % (11.0-16.0); White Blood Count 6.4 X10*3/uL (4.8-10.8)
[2023-06-14 16:47] LABS: Alanine Aminotransferase 50 U/L (0-31); Albumin Level 4.5 g/dL (3.5-5.0); Alkaline Phosphatase 93 U/L (39-117); Anion Gap 12 (12-20); Aspartate Amino Transferase 41 U/L (5-31); Bilirubin Total 0.4 mg/dL (0.0-1.0); Blood Urea Nitrogen 9 mg/dL (9-16); Calcium 10.7 mg/dL (8.4-10.2); Carbon Dioxide 26 mmol/L (22-29); Chloride 108 mmol/L (96-108); Creatinine Clr Calc Pharmacy 68.9; Estimated Glomerular Filt Rate > 60; Glucose Random 91 mg/dL (60-115); Magnesium 2.3 mg/dL (1.6-2.6); Potassium 4.1 mmol/L (3.3-5.1); Sodium 142 mmol/L (135-145)
[2023-06-14 16:52] LABS: B Type Natriuretic Peptide 39 pg/mL (<100)
[2023-06-14 16:58] LABS: Troponin-I High Sensitivity < 2.7 ng/L (<3.5-17.0)
[2023-06-14 17:27] LABS: Influenza A PCR NEGATIVE (Negative); Influenza B PCR NEGATIVE (Negative); Resp Syncy Virus RNA Qual PCR NEGATIVE (Negative); SARS COV2 PCR INHOUSE POSITIVE (Negative)
== END 2023-06-14 18:27 | disposition home or self-care (01) ==
LOC: HO.ED 18:20
PROVIDERS: Physician Assistant Medical; Emergency Provider Emergency Medicine; PCP Nurse Practitioner Family
DX: U07.1 COVID-19 (principal); Z87.891 Personal history of nicotine dependence
CPT/HCPCS: 0241U; 71046; 80053; 83735; 83880; 84484; 85025; 85610; 85730; 93005; 99282; 99283

== ENCOUNTER 2023-08-19 07:36 | Outpatient (REF) | payer OTHER, SELFPAY ==
--- NOTE | ~2023-08-19 | MM_ITS ---
EXAMINATION: MM SCREENING DIGITAL BREAST TOMOSYNTHESIS, BILATERAL CLINICAL INFORMATION: Screening. Asymptomatic. COMPARISON: Mammography: This study is compared with prior exams dating back to 2016. TECHNIQUE: Digital breast tomosynthesis is performed in both the craniocaudal and mediolateral oblique views along with computer-aided detection (CAD). Synthesized 2D images are generated from the tomosynthesis. FINDINGS: The breasts are heterogeneously dense, which may obscure small masses (ACR BI-RADS breast composition Category c). There are no significant masses, abnormal calcifications, or other abnormalities. MM/MM tomosynthesis screening BI IMPRESSION: No mammographic evidence of malignancy. ASSESSMENT: BI-RADS BI-RADS 1 - Negative RECOMMENDATION: Routine annual mammography screening. 1 year F/U This examination should not preclude the clinical evaluation of a suspicious palpable abnormality. This patient's information was entered into a reminder system with a target due date for their next mammogram.
--- NOTE | ~2023-08-19 | MM_ITS ---
EXAMINATION: BONE DENSITOMETRY CLINICAL INDICATION: Osteopenia. COMPARISON: Baseline BD dated 05/07/2017. TECHNIQUE: Using a [employer] DXA System (software version: 13.1) manufactured by [employer], dual-energy x-ray absorptiometry was performed of the lumbar spine and left hip. The images are of good technical quality. Summary results are attached. FINDINGS: LEFT FEMUR, NECK: Current: BMD 0.824 g/cm2, Z-score -0.2, T-score -1.5, osteopenia. Baseline: BMD 0.850 g/cm2. LEFT FEMUR, TOTAL: Current: BMD 0.842 g/cm2, Z-score -0.2, T-score -1.3, osteopenia, 7.0% decrease from baseline (<5% change is not significant). Baseline: BMD 0.905 g/cm2. AP SPINE L1-L2 (excluding L3 and L4): The data of L1-L4 has been changed to exclude the L3 and L4 vertebral bodies, because degenerative sclerosis at these levels may cause overestimation of lumbar spine density. Current: BMD 0.885 g/cm2, Z-score -1.0, T-score -2.3, osteopenia, 4.1% decrease from baseline (<5% change is not significant). Baseline: BMD 0.923 g/cm2. IDENTIFIED RISK FACTORS: Menopause, height loss. HISTORY OF FRACTURE: None listed. MEDICATIONS: Vitamin D. MM/XR DEXA axial skeleton IMPRESSION: 1. DIAGNOSIS: Osteopenia based on the lowest T-score value of -2.3 in the lumbar spine applying World Health Organization criteria. 2. 10-YEAR FRACTURE RISK PREDICTION, FRAX: Major osteoporotic fracture (clinical spine, forearm, hip or shoulder) 9.2%. Hip fracture 1.1%. 3. Treatment Recommendations: NOF guidelines recommend consideration for treatment in postmenopausal women and men age 50 and older presenting with the following: -A hip or vertebral (clinical or morphometric) fracture. -T-score less than or equal to -2.5 at the femoral neck or spine after appropriate evaluation to exclude secondary causes. -Low bone mass at the hip or spine and a 10-year fracture probability by FRAX of greater than or equal to 3% for hip fracture or greater than or equal to 20% for major osteoporotic fracture based on the [place] adapted WHO algorithm. 4. Other Recommendations: All treatment decisions require clinical judgment and consideration of individual patient factors, including patient preferences, comorbidities, previous drug use, risk factors not captured in the FRAX model (e.g. frailty, falls, vitamin D deficiency, increased bone turnover, interval significant decline in bone density) and possible under or overestimation of fracture risk by FRAX. Additional medical evaluation for secondary cause of low bone mineral density may be appropriate. FUTURE SCAN RECOMMENDATION: People with diagnosed cases of osteoporosis or at high risk for fracture should have regular bone mineral density tests. For patients eligible for Medicare, routine testing is allowed once every 2 years. The testing frequency can be increased to one year for patients who have rapidly progressing disease, those who are receiving or discontinuing medical therapy to restore bone mass, or have additional risk factors.
[2023-08-19 07:49] LABS: MANUAL DIFF FLAG NO
[2023-08-19 07:57] LABS: Basophils Percent Auto 0.4 % (0-2); Eosinophils Absolute Auto 0.3 X10*3/uL (0.0-0.4); Eosinophils Percent Auto 5.5 % (0-4); Hematocrit 40.8 % (37.0-47.0); Hemoglobin 13.4 g/dl (12.0-16.0); Imm Gran Abs Auto 0.01 X10*3/uL (0.00-0.03); Imm Gran Pct Auto 0.2 % (0.0-0.4); Lymphocytes Absolute Auto 1.8 X10*3/uL (1.2-4.9); Lymphocytes Percent Auto 37.3 % (20-40); Mean Corpuscular HGB Conc 32.8 g/dl (31.0-35.0); Mean Corpuscular Hemoglobin 29.6 pg (27.0-33.0); Mean Corpuscular Volume 90.1 fL (80.0-98.0); Mean Platelet Volume 11.4 fL (9.4-12.3); Monocytes Absolute Auto 0.6 X10*3/uL (0.1-1.2); Monocytes Percent Auto 11.5 % (2-11); Neutrophils Absolute Auto 2.2 x10*3/uL (2.0-8.3); Neutrophils Percent Auto 45.1 % (45-73); Platelet Count 282 X10*3/uL (160-400); Red Blood Count 4.53 X10*6/uL (4.20-5.50); Red Cell Distribution Width 13.5 % (11.0-16.0); White Blood Count 4.8 X10*3/uL (4.8-10.8)
[2023-08-19 08:30] LABS: Alanine Aminotransferase 24 U/L (0-31); Alkaline Phosphatase 78 U/L (39-117); Anion Gap 11 (12-20); Aspartate Amino Transferase 27 U/L (5-31); Bilirubin Total 0.6 mg/dL (0.0-1.0); Blood Urea Nitrogen 13 mg/dL (9-16); Calcium 9.4 mg/dL (8.4-10.2); Carbon Dioxide 24 mmol/L (22-29); Chloride 109 mmol/L (96-108); Cholesterol 194 mg/dL (<200); Estimated Glomerular Filt Rate > 60; Glucose Random 100 mg/dL (60-115); HDL Cholesterol 49 mg/dL (>40); LDL Cholesterol Calculated 124 mg/dL (<100); Potassium 3.8 mmol/L (3.3-5.1); Sodium 140 mmol/L (135-145); Total Protein 6.4 g/dL (6.5-8.0); Triglycerides 109 mg/dL (<150)
[2023-08-19 08:45] LABS: Thyroid Stimulating Hormone 0.03 uIU/mL (0.32-4.0)
[2023-08-19 08:52] LABS: Appearance Urine Cloudy; Color Urine Yellow; Glucose Urine UA Negative (Negative); Leukocyte Esterase Urine Large (3+) (Negative); Nitrite Urine Negative (Negative); PH 5.5 (5.0-9.0); Specific Gravity - Urine 1.015 (1.005-1.025); UMIC TRIGGER UA YES; Urine Blood Trace (Negative); Urine Ketones Negative (Negative); Urine Protein Negative (Neg-Trace)
[2023-08-19 08:57] LABS: Bacteria Urine Trace (None Seen); Hyaline Casts Urine 0-2 /LPF (0-2); RBC Urine 0-2 /HPF (0-2); WBC Urine >50 /HPF (0-5)
== END 2023-08-19 07:37 | disposition home or self-care (01) ==
LOC: HO.MAMMO 07:36
PROVIDERS: Visit Provider Nurse Practitioner Family
DX: Z12.31 Encounter for screening mammogram for malignant neoplasm of breast (principal); R30.0 Dysuria; E78.2 Mixed hyperlipidemia; E03.9 Hypothyroidism, unspecified; Z13.820 Encounter for screening for osteoporosis; M85.80 Other specified disorders of bone density and structure, unspecified site; Z78.0 Asymptomatic menopausal state
CPT/HCPCS: 36415; 77063; 77067; 77080; 80053; 80061; 81001; 84443; 85025

== ENCOUNTER → 2023-08-19 08:30 | Outpatient (BNV) | payer OTHER, SELFPAY | PROVIDERS: Visit Provider Radiology Diagnostic Radiology | DX: Z12.31 Encounter for screening mammogram for malignant neoplasm of breast (principal) | CPT/HCPCS: 77063; 77067 ==

== ENCOUNTER 2023-09-16 16:48 | Outpatient (REF) | payer OTHER, SELFPAY ==
[2023-09-16 17:16] LABS: Appearance Urine Clear; Color Urine Yellow; Glucose Urine UA Negative (Negative); Leukocyte Esterase Urine Moderate (2+) (Negative); Nitrite Urine Negative (Negative); PH 6.5 (5.0-9.0); Specific Gravity - Urine <= 1.005 (1.005-1.025); UMIC TRIGGER UACC YES; Urine Blood Trace (Negative); Urine Ketones Negative (Negative); Urine Protein Negative (Neg-Trace)
[2023-09-16 17:22] LABS: Bacteria Urine 1+ (None Seen); Hyaline Casts Urine 0-2 /LPF (0-2); RBC Urine 0-2 /HPF (0-2); Squamous Epithelial Cell Urine 0-2 /HPF (0-2); UACC Culture Trigger YES
[2023-09-16 18:07] LABS: Free T4 (Free Thyroxine) 1.34 ng/dL (0.71-1.85); Thyroid Stimulating Hormone 0.03 uIU/mL (0.32-4.0)
[2023-09-16 18:13] LABS: Vitamin B12 297 pg/mL (200-900)
== END 2023-09-16 16:49 | disposition home or self-care (01) ==
LOC: HO.LAB 16:48
PROVIDERS: PCP Nurse Practitioner Family; Visit Provider Nurse Practitioner Family
DX: E03.9 Hypothyroidism, unspecified (principal); R53.83 Other fatigue; R82.90 Unspecified abnormal findings in urine
CPT/HCPCS: 36415; 81001; 82607; 84439; 84443; 87086; 87088; 87186

== ENCOUNTER 2023-11-01 19:39 | Outpatient (REF) | payer OTHER, SELFPAY ==
--- NOTE | ~2023-11-01 | MR_ITS ---
MR CERVICAL SPINE WITHOUT CONTRAST MR LUMBAR SPINE WITHOUT CONTRAST CLINICAL INFORMATION: Cervical stenosis. Chronic radiculopathy. COMPARISON: Lumbar spine MRI 05/14/2022 TECHNIQUE: Multiplanar multisequence MR imaging of the cervical spine and lumbar obtained without IV contrast. FINDINGS: CERVICAL SPINE MRI: Cervical alignment is normal. There is moderate to severe disc volume loss at C5-C6 and C6-C7. Vertebral body heights are maintained. The craniocervical junction is unremarkable. There is no bone marrow edema. There are no acute fractures. The partially imaged intracranial compartment is unremarkable. The cervical arterial flow voids are maintained. There are no significant extraspinal soft tissue findings. C2-C3: Posterior disc contour is normal. No central canal stenosis and no foraminal stenosis. C3-C4: Disc contour is normal. Mild bilateral facet arthropathy. No central canal stenosis and no foraminal stenosis. C4-C5: Disc osteophyte without central canal stenosis. Uncovertebral joint spurring and facet arthropathy result in mild right-sided foraminal encroachment. C5-C6: A shallow right paracentral disc protrusion and ligamentum flavum thickening mildly narrow the central canal. Uncovertebral joint spurring and facet arthropathy result in moderate to severe right-sided foraminal stenosis. C6-C7: Disc osteophyte mildly narrows the central canal. Uncovertebral joint spurring and facet arthropathy result in severe right and moderate left foraminal stenosis. C7-T1: Disc contour is normal. No central canal stenosis and no foraminal stenosis. LUMBAR SPINE MRI: There are 5 nonrib-bearing lumbar-type vertebral bodies. There is grade 1 retrolisthesis of L1 on L2. Lumbar alignment is otherwise normal. The vertebral body heights are maintained. There is an interbody cage at L3-L4 anteriorly. Intraosseous hemangiomas within the L4 and S1 vertebral bodies. There is no bone marrow edema. There are no acute fractures. Conus terminates at the L1-L2 level. Extrarenal pelvises bilaterally. Partially imaged fibroid uterus. L1-L2: Grade 1 retrolisthesis. Small annular disc bulge. No central canal stenosis and no foraminal stenosis. Findings unchanged. L2-L3: Disc contour is normal. No central canal stenosis and no foraminal stenosis. L3-L4: Interbody cage in place. Mild bilateral facet arthropathy. No central canal stenosis and no foraminal stenosis. L4-L5: There is a similar right lateral disc protrusion that along with advanced facet arthropathy results in similar moderate right-sided foraminal stenosis and mass effect on the extraforaminal right L4 nerve root. There is a background annular disc bulge and there is bilateral facet arthropathy and ligamentum flavum thickening. Similar narrowing of the subarticular zones with mild mass effect on the traversing L5 nerve roots bilaterally. L5-S1: Diffuse annular disc bulge and severe bilateral facet arthropathy. No central canal stenosis. Mild foraminal encroachment bilaterally. MR/MR cervical spine wo con IMPRESSION: - Multilevel cervical spondylosis. Spondylitic changes result in moderate to severe right C5-C6 as well as severe right and moderate left C6-C7 foraminal stenosis. There is no severe central canal stenosis within the cervical spine. - Stable appearing multilevel lumbar spondylosis. Interbody cage again noted L3-L4. At L4-L5, a right lateral disc protrusion and advanced facet arthropathy result in similar moderate right-sided foraminal stenosis and mass effect on the extraforaminal right L4 nerve root. Spondylitic changes at L4-L5 result in similar bilateral subarticular zone stenosis with mass effect on the traversing L5 nerve roots bilaterally. Additional stable degenerative findings throughout the lumbar spine as described. - Partially imaged fibroid uterus.
== END 2023-11-01 19:40 | disposition home or self-care (01) ==
LOC: HO.MRI 19:39
PROVIDERS: PCP Nurse Practitioner Family; Visit Provider Nurse Practitioner Family
DX: M48.02 Spinal stenosis, cervical region (principal); M54.16 Radiculopathy, lumbar region
CPT/HCPCS: 72141; 72148

== ENCOUNTER 2023-11-11 09:47 | Outpatient (AMB) | payer OTHER, SELFPAY ==
--- NOTE | 2023-11-11 09:57 | HO.SPINEOV ---
Intake Intake Visit Reasons: Back pain Intake Note: Ms. Jaeger is here today c/o low back pain. Lead Housekeeper Required: No Allergies gluten [Gluten] Allergy (Severe, Verified 02/15/23 10:09) Gastrointestinal Upset Penicillins Allergy (Intermediate, Verified 02/15/23 10:09) Rash Sulfa (Sulfonamide Antibiotics) Allergy (Intermediate, Verified 02/15/23 10:09) Rash Codeine Phosphate Allergy (Intermediate, Uncoded 10/15/22 16:31) Nausea Assessment & Plan Assessment & Plan (1) Lumbar radiculopathy: Code(s): M54.16 - Radiculopathy, lumbar region Plan Yahaira is a pleasant 68-year-old female who is self-referred to our practice. She comes in today to discuss 2 issues. The 1st being her low back pain which she states is the worst problem that she has. She reports that she has a long history of low back pain and back in 2005 she had an injury at work while at [employer] and had a L3-[address] Franz as a result of this injury. She had some relief of her back pain which gradually returned as the years progress. She states that lying down and standing from a seated position makes her pain worse, and that sitting helps to alleviate her pain. She reports no increased aggravation or alleviation from walking. She states that her low back pain is accompanied by some radicular pain into her bilateral posterior thighs. She states that on the left the pain radiates farther down her leg and wraps around the front of her thigh and terminates at her left knee. She states that she has attempted physical therapy earlier this year without significant relief. She has not yet attempted cortisone injections for this issue. Her 2nd issue is posterior neck pain with radiation down her right arm. When describing the radiation she states that it goes over the top of her shoulder down the lateral aspect of her arm and terminates near her wrist. She describes this as a low-grade pain, but does state it is associated with some changes in temperature sense on the right. She reports that her right arm always feels ?colder? than her left. She states that her radicular pain on the right side is waxing/waning and comes and goes depending on the day. She has had injections in her right shoulder in the past thinking that it may have to do with a shoulder injury. Unfortunately these have not been helpful. PMH: History of L3-4 lumbar fusion in 2005, bilateral cataract surgery, right foot surgery x2 at [facility], appendectomy, tonsillectomy. Hypothyroidism, anxiety, restless legs, GERD. Social hx: The patient does not smoke, reports no substance use. Medications: Levothyroxine, omeprazole, lidocaine patches, latanoprost drops, lorazepam. Allergies: NKDA. Physical exam: The patient has 5/5 strength in her upper and lower extremities. The patient has temperature sense changes over her right deltoid / triceps. The rest of her sensation is intact. Reflexes are 2+ intact. She is able to ambulate well and rises from a seated position without difficulty. (-) Waller's, (-) Lhermitte's, (-) straight leg raise bilaterally, (-) clonus. Imaging review: MRI of the lumbar spine completed here at [facility] shows a previous L3-4 fusion. Diffuse spondylosis of the lumbar spine. 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 As a likely result of this she has some loss of disc height and moderate bilateral foraminal stenosis at this level. MRI of the cervical spine completed here at [facility] shows normal spondylosis of the cervical spine with loss of disc height at C5-6 and C6-7. There is some posterior disc protrusion noted at these levels, causing moderate right-sided foraminal stenosis at C5-6, and moderate bilateral foraminal stenosis at C6-7, worse on the right. Impression: Yahaira is a pleasant 68-year-old female who comes in today with a chief complaint of both neck and low back pain. When asked what her worst symptom is she says her back is by far the worst. She states that her neck symptoms are more waxing/waning in do not affect her activities of daily living to a significant extent. I do believe that her waxing and waning pain with changes in temperature sense in her right upper extremity are likely due to the posterior disc bulges from C5-7, but I do not believe that there severity is enough to warrant an intervention at this time. In regards to her low back pain, she has moderate bilateral foraminal stenosis at L4-5 due to a likely adjacent segment disease at this level from her fusion 18 years ago. She has not had any cortisone injections since 2005 prior to her fusion. I would like to send her to our colleagues in pain management for evaluation and potential treatment via epidural steroid injection at L4-5. I am sure she would also appreciate any other recommendations they may offer. I encouraged her to reach back out to our office after she has attempted some conservative measures, if they do not provide her with the desired relief. Thank you for allowing us to care for your patient. The total time spent with this visit with this patient was 60 minutes reviewing history, physical exam, MRI imaging review, and implementation of treatment plan or further diagnostic testing Brent Leigh MD,PhD [facility] Orders: Referrals Pain Management Referral M54.16 - Radiculopathy, lumbar region Coding Level of Care Code New Pt Level 5 (02637) Diagnoses Lumbar radiculopathy M54.16
== END 2023-11-11 11:34 | disposition home or self-care (01) ==
PROVIDERS: PCP Nurse Practitioner Family; Visit Provider Physician Assistant
DX: M54.16 Radiculopathy, lumbar region (principal)
CPT/HCPCS: 99205

== ENCOUNTER → 2023-11-11 09:47 | Outpatient (BNVA) | payer OTHER, SELFPAY | PROVIDERS: PCP Nurse Practitioner Family; Visit Provider Physician Assistant ==

== ENCOUNTER 2023-11-25 11:04 | Outpatient (AMB) | payer OTHER, SELFPAY ==
--- NOTE | 2023-11-25 11:08 | MHC.OFFVIS ---
Intake Intake Visit Reasons: OV- Rt shoulder pain last inj 02/15/23 Intake Note: Yahaira is a 67 year old 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 female who presents today for a follow up for her right shoulder pain, last injection 02/15/23. Patient reports her last injections gave her about 8 months of relief and would like to repeat. Patient was wondering if she can get an injection in her left shoulder as well due to having pain about 2-3 weeks. Allergies gluten [Gluten] Allergy (Severe, Verified 11/25/23 11:32) Gastrointestinal Upset Penicillins Allergy (Intermediate, Verified 11/25/23 11:32) Rash Sulfa (Sulfonamide Antibiotics) Allergy (Intermediate, Verified 11/25/23 11:32) Rash Codeine Phosphate Allergy (Intermediate, Uncoded 10/15/22 16:31) Nausea HPI OV- Rt shoulder pain last inj 02/15/23 HPI Details 68-year-old 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 female who presents in the office today for a follow up of bilateral shoulder pain. I last saw the patient in the office on 02/15/2023. At that time she was given a cortisone injection. While in the office today the patient reports her last injection gave her about 8 months of relief and she would like to repeat this in the office today. She is also interested in injection the left shoulder due to having pain for the past 2-3 weeks. COUNT INCLUDES THE [facility] Medical History Chest pain Crescendo angina Angina pectoris Hypothyroidism Low back pain COVID-19 vaccine series completed Anxiety GERD (gastroesophageal reflux disease) Celiac disease Restless leg syndrome Surgical History History of esophagogastroduodenoscopy (EGD) Hx of colonoscopy Hx of right cataract extraction Hx of foot surgery Hx of tonsillectomy Hx of appendectomy History of back surgery Family History Daughter Celiac disease Social History Household Members: Children Household Members Other:: son age 17 Housing: House Are you a primary small animal caretaker to a significant other at home: No Do you presently have visiting nurse or other home services: No Alcohol intake: current Alcohol intake frequency: does not drink Alcohol type: hard liquor Patient Tobacco Use Status: Former Tobacco user Quit Date: 2000 Tobacco use type: Cigarette Advance Directives Date on File: 03/14/21 service: No Current occupational status: employed 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 Global tenderness to palpation over all anatomical landmarks. Pain in all planes with ROM testing. FF to 175, ER to 90, IR to S1. NVI. Psych Mental Status: mental status grossly normal Office Procedures Joint Injection/Drain Joint Injection/Drain Primary Site: right shoulder Secondary Site: left shoulder Injected: 80 mg of, DepoMedrol, with 8 mL of (2% plain lido ) and in the subcromial space Approach Used: posterolateral Procedure: The patient tolerated the procedure well, but had some pain with the injection and there was some relief with the local anesthesia Coding 90662 - Large joint Procedure code (CPT) selection complete Assessment & Plan Assessment & Plan (1) Strain of rotator cuff of right shoulder: Code(s): S46.011A - Strain of muscle(s) and tendon(s) of the rotator cuff of right shoulder, initial encounter Plan Ms. Jaeger is a 68-year-old 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 female who presents in the office today for a follow up of bilateral shoulder pain. I last saw the patient in the office on 02/15/2023. At that time she was given a cortisone injection. While in the office today the patient reports her last injection gave her about 8 months of relief and she would like to repeat this in the office today. She is also interested in injection the left shoulder due to having pain for the past 2-3 weeks. The patient was offered a cortisone injection in the bilateral shoulders with 80 mg of DepoMedrol. The patient was explained the risk, benefits, and alternatives to receiving this injection. After receiving consent for the injection, the patient had the procedure done while in office today. The patient tolerated the procedure well with no complications. Follow up will be PRN, or sooner if needed. Of note: Patient called to notify the office (11/25/2023 at 11:49 am) that she was sitting in her car by the ED with her heart racing. I strongly recommend for the patient to present to the ED for further evaluation. Patient Instructions: Scribed by Yael Linares medical practice manager, for Aaliyah Nunez PA-C on 11/25/2023 at 11:06 am, EST. Coding Level of Care Code Est Pt Level 3 (89206) Diagnoses Strain of rotator cuff of right shoulder S46.011A CPT Codes Coding - 67531 Large joint: 38802 - Large joint ([id number])
== END 2023-11-25 11:33 | disposition home or self-care (01) ==
PROVIDERS: PCP Nurse Practitioner Family; Visit Provider Physician Assistant
DX: M75.101 Unspecified rotator cuff tear or rupture of right shoulder, not specified as traumatic (principal)
CPT/HCPCS: 20610; 99213

== ENCOUNTER → 2023-11-25 11:04 | Outpatient (BNVA) | payer OTHER, SELFPAY | PROVIDERS: PCP Nurse Practitioner Family; Visit Provider Physician Assistant | DX: S46.011A Strain of muscle(s) and tendon(s) of the rotator cuff of right shoulder, initial encounter (principal); M25.512 Pain in left shoulder | CPT/HCPCS: 20610; J1010; J1040 ==

== ENCOUNTER 2023-11-30 19:31 | Emergency (ER) | payer OTHER, SELFPAY ==
--- NOTE | ~2023-11-30 | CT_ITS ---
EXAMINATION: CT HEAD WITHOUT CONTRAST CLINICAL INFORMATION: TIA symptoms for one week COMPARISON: CT head November 23, 2018 TECHNIQUE: Contiguous axial imaging was performed from the skull base to vertex without intravenous administration of contrast. Coronal and sagittal reformatted images are performed at the CT scanner. [This CT examination was performed using dose optimization techniques as appropriate, variously including the following: *Automated exposure control *Adjustment of mA and/or kV according to patient size (this includes techniques or standardized protocols for targeted exams where dose is matched to indication/reason for exam; i.e. extremities or head) *Use of iterative reconstruction technique] DLP: 581 mGy-cm. FINDINGS: There is no evidence of acute intracranial hemorrhage or territorial infarction. No abnormal mass-effect or midline shift is seen. Isbell to white matter differentiation is well preserved. No extra-axial fluid collections are identified. There is generalized global volume loss. There is mild to moderate prominence of the ventricles and the sulci . There are vascular calcifications of the internal carotid arteries bilaterally. There is no osseous abnormality. The mastoid air cells and visualized portions of the paranasal sinuses are well-aerated. CT/CT head/brain wo IV con IMPRESSION: No acute intracranial pathology.
[2023-11-30 19:55] VITALS: BP 143/89; PULSE 91; RESP 16; TEMP 37.3; O2SAT 96; BMI 28.2
--- NOTE | 2023-11-30 20:02 | ED_ITS ---
HPI - Headache General Chief Complaint: Weakness Stated Complaint: Had episode of blurry vision, slurred speech Time Seen by Provider: 12/01/23 09:50 Source: patient Mode of arrival: ambulatory History of Present Illness HPI Narrative: 68-year-old female with reports of having received her corticosteroid shot last for chronic back pain and states that afterwards she developed some blurry vision while driving, became very dizzy/weeks/shaky and reports that at the time her speech was slurred. Patient called out of work and sat in her car and did not call 911. Since that time patient states that she has continued to have intermittent episodes of feeling unsteady on her feet and off balance. She reports a headache right now and she is concerned that she may be having a TIA. Related Data Home Medications ?Medication ?Instructions ?Recorded ?Confirmed latanoprost 0.005 % eye drops 1 drp ophthalmic-Left BEDTIME 01/28/21 10/15/22 levothyroxine 88 mcg tablet 1 tab PO DAILY 01/28/21 10/15/22 (Synthroid) lidocaine 5 % topical patch 1 patch topical DAILY PRN Pain 01/28/21 10/15/22 lorazepam 0.5 mg tablet 1 tab PO BID PRN anxiety 01/28/21 10/15/22 omeprazole 20 mg capsule,delayed 20 mg PO DAILY 03/06/21 10/15/22 release pramipexole 1 mg tablet 1 mg PO BEDTIME 03/16/22 10/15/22 ibuprofen 600 mg tablet 1 tab PO TID PRN pain 10/15/22 10/15/22 Previous Rx's ?Medication ?Instructions ?Recorded cefdinir 300 mg capsule 300 mg PO BID 7 days #14 caps 12/01/23 Allergies Allergy/AdvReac Type Severity Reaction Status Date / Time gluten [Gluten] Allergy Severe Gastrointestinal Verified 11/30/23 20:01 Upset Penicillins Allergy Intermediate Rash Verified 11/30/23 20:01 Sulfa (Sulfonamide Allergy Intermediate Rash Verified 11/30/23 20:01 Antibiotics) Codeine Phosphate Allergy Intermediate Nausea Uncoded 10/15/22 16:31 Review of Systems 2 Review of Systems: Pertinent positives and negatives as stated in the HPI [facility] Past Medical History Source: nursing notes reviewed Medical History Chest pain Crescendo angina Angina pectoris Hypothyroidism Low back pain COVID-19 vaccine series completed Anxiety GERD (gastroesophageal reflux disease) Celiac disease Restless leg syndrome Surgical History Hx of bilateral cataract extraction History of esophagogastroduodenoscopy (EGD) Hx of colonoscopy Hx of foot surgery Hx of tonsillectomy Hx of appendectomy History of back surgery Family History Family History Daughter Celiac disease Social History Social History Household Members: Children Household Members Other:: son age 17 Housing: House Are you a primary neonatal intensive care unit nurse to a significant other at home: No Do you presently have visiting nurse or other home services: No Alcohol intake: current Alcohol intake frequency: holidays/special occasions only Patient Tobacco Use Status: Former Tobacco user Quit Date: 2000 Tobacco use type: Cigarette Smoked in Last 30 Days: No Use of substances other than those prescribed or required for medical reasons: No Advance Directives: Yes Advance Directives on File: Yes Advance Directives Date on File: 03/14/21 service: No Current occupational status: employed 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 GENERAL: Well developed, well nourished, in no acute distress. HEAD: Normocephalic/atraumatic EYES: PERRLA, EOMI EARS: Ext canals without abnormality NOSE: Nares patent bilateral OROPHARYNX: no oral lesions noted, posterior pharynx clear NECK: Supple, no adenopathy LUNGS: Normal breath sounds. No adventitious sounds or accessory muscle use. SpO2<100> CARDIOVASCULAR: Regular rate and rhythm without noted murmurs ABDOMEN: Soft, non-tender, non-distended with bowel sounds. MUSCULOSKELETAL: No tenderness, deformities, or effusions noted on gross inspection. EXTREMITIES: No cyanosis, clubbing or edema. SKIN: Inspection of the skin reveals no rashes NEUROLOGIC: Alert and oriented x 4. Strength and sensation to light touch were grossly intact x 4, no facial asymmetry, no pronator drift, cranial nerves 2-12 are grossly intact. Course Course Course Narrative: RME: 68 yo female hx of GERD, anxiety, hypothyroid, TIA here for eval of TIA symptoms x1 week. Admits to episode of slurred speech, headache, and blurred vision?that lasted 1 hour last . her headache has persisted. Endorses hx of TIA in 2016 in which she presented with these same symptoms. she followed up with neurology at that time and no further treatment was warranted. began taking 81mg last week. no AC. no head trauma/injury. exam nonfocal. no facial dropo. no slurred speech. no pronator drift. ambulating w/ steady gait. labs, CT ordered Full HPI, ROS and PE to be performed by the primary ED provider. Medications Administered Discontinued Medications Generic Name Dose Route Start Last Admin Trade Name Cassiusq PRN Reason Stop Dose Admin Acetaminophen 975 mg 12/01/23 11:14 12/01/23 11:28 Acetaminophen 325 Mg Tablet PO 12/01/23 11:15 975 mg ONCE ONE Administration Ceftriaxone Sodium 1 gm/ 50 mls @ 100 mls/hr 12/01/23 10:39 12/01/23 11:28 Sodium Chloride IV 12/01/23 11:08 Infused ONCE ONE Infusion Sodium Chloride 500 mls @ 999 mls/hr 12/01/23 10:45 12/01/23 11:28 Ns IV 12/01/23 11:15 Infused .Q31M ANNE Infusion Medical Decision Making Medical Decision Making [facility] Narrative: 68-year-old female in whom I highly suspect an infectious etiology given the waxing and waning symptoms that she has been experiencing, patient is otherwise nonfocal today, does not have fevers or chills to suggest a viral infection. I reviewed all investigations and hematologic indices demonstrate leukocytosis with left shift and slight elevation of platelets but otherwise no anemia. Chemistry indices are negative for FELISHA/electrolyte or liver enzyme derangements. Urinalysis is grossly positive for nitrite/leukocyte esterase/bacteria and wbc's. Patient received IV fluids as well as Rocephin in viral testing is negative for influenza/COVID-19/RSV. Head CT without evidence of intracranial bleed or mass effect. My interpretation is that this is a 68-year-old female who is nonfocal and had concerning symptoms last and then a waxing and waning course with evidence of infection/pyelonephritis for which she received initial antibiotics here in the emergency room. I do not think that it is necessary to proceed with MRI of the head or CT angio of head and neck for further evaluation. Differential Diagnosis Differential Diagnoses: The differential diagnosis associated with the presentation includes Please see the discussion above Admission/Observation Consideration of admission/observation: Escalation of care including admission/observation considered Please see the discussion above Lab Data MDM Lab Attestation statement: I reviewed the patient's lab results. Please see the discussion above 11/30/23 20:06 11/30/23 20:06 Labs: Lab Results 11/30/23 12/01/23 Range/Units 20:06 10:18 WBC 15.8 H (4.8-10.8) X10*3/uL RBC 5.06 (4.20-5.50) X10*6/uL Hgb 15.0 (12.0-16.0) g/dl Hct 44.4 (37.0-47.0) % MCV 87.7 (80.0-98.0) fL MCH 29.6 (27.0-33.0) pg MCHC 33.8 (31.0-35.0) g/dl RDW 13.8 (11.0-16.0) % Plt Count 424 H D (160-400) X10*3/uL MPV 10.9 (9.4-12.3) fL Immature Gran % (Auto) 1.1 H (0.0-0.4) % Neut % (Auto) 75.8 H (45-73) % Lymph % (Auto) 14.5 L (20-40) % Dundy % (Auto) 7.7 (2-11) % Eos % (Auto) 0.6 (0-4) % Baso % (Auto) 0.3 (0-2) % Lymph # (Auto) 2.3 (1.2-4.9) X10*3/uL Dundy # (Auto) 1.2 (0.1-1.2) X10*3/uL Eos # (Auto) 0.1 (0.0-0.4) X10*3/uL Baso # (Auto) 0.1 (0.0-0.2) X10*3/uL Abs Immat Gran (auto) 0.18 H (0.00-0.03) X10*3/uL Absolute Neuts (auto) 12.0 H (2.0-8.3) x10*3/uL Absolute Nucleated RBC 0.000 (0.0-0.012) X10*3/uL Nucleated RBC % (auto) 0.0 (0.0-0.2) /100WBC Sodium 141 (135-145) mmol/L Potassium 4.0 (3.3-5.1) mmol/L Chloride 107 (96-108) mmol/L Carbon Dioxide 25 (22-29) mmol/L Anion Gap 13 (12-20) BUN 14 (9-16) mg/dL Creatinine 0.83 (0.5-1.4) mg/dL Estim Creat Clear Calc 63.5 Estimated GFR > 60 Random Glucose 105 (60-115) mg/dL Calcium 9.5 (8.4-10.2) mg/dL Total Bilirubin 0.4 (0.0-1.0) mg/dL AST 20 (5-31) U/L ALT 23 (0-31) U/L Alkaline Phosphatase 84 (39-117) U/L Total Protein 7.1 (6.5-8.0) g/dL Albumin 4.6 (3.5-5.0) g/dL Urine Color Yellow Urine Appearance Cloudy Urine pH 6.0 (5.0-9.0) Ur Specific Eldridge 1.015 (1.005-1.025) Urine Protein Negative (Neg-Trace) mg/dL Urine Glucose (UA) Negative (Negative) mg/dL Urine Ketones Negative (Negative) mg/dL Urine Blood Small (1+) H (Negative) Urine Nitrite Positive H (Negative) Ur Leukocyte Esterase Small (1+) H (Negative) Urine RBC 3-5 H (0-2) /HPF Urine WBC 11-20 H (0-5) /HPF Ur Squamous Epith Cells 0-2 (0-2) /HPF Urine Bacteria 4+ (None Seen) Hyaline Casts 0-2 (0-2) /LPF Influenza Type A (PCR) NEGATIVE (Negative) Influenza Type B (PCR) NEGATIVE (Negative) RSV RNA Qual (PCR) NEGATIVE (Negative) SARS-CoV-2 RNA (RT-PCR) NEGATIVE (Negative) Radiology Impression Discussion of test interpretation with radiology: I have reviewed the radiologist's reading. Radiologist Impression: Please see the discussion above External Record Review External record reviewed: Outpatient record, Prior outpatient labs and Prior outpatient radiology Critical Care Time Critical Care Time Critical Care Time: Yes Total Critical Care Time: 60 Attestation: I personally attest to this time spent taking care of the patient. Discharge Plan Discharge Clinical Impression: Pyelonephritis Patient Disposition: Home, Self-Care Instructions: Kidney Infection (ED) Additional Instructions: 1. Resume all home medications as prescribed. 2. Complete the entire course of antibiotics as prescribed. 3. Call the office of your primary care doctor and set up an appointment for re- evaluation. Return to the ER for any worsening symptoms. Prescriptions: New cefdinir 300 mg capsule 300 mg PO BID 7 Days Qty: 14 0RF No Action latanoprost 0.005 % drops 1 drp ophthalmic-Left BEDTIME levothyroxine [Synthroid] 88 mcg tablet 1 tab PO DAILY lorazepam 0.5 mg tablet 1 tab PO BID PRN (Reason: anxiety) lidocaine 5 % adhesive patch,medicated 1 patch topical DAILY PRN (Reason: Pain) ibuprofen 600 mg tablet 1 tab PO TID PRN (Reason: pain) omeprazole 20 mg capsule,delayed release(DR/EC) 20 mg PO DAILY pramipexole 1 mg tablet 1 mg PO BEDTIME Print Language: Mozambican
[2023-11-30 20:11] LABS: MANUAL DIFF FLAG NO
[2023-11-30 20:13] LABS: Basophils Absolute Auto 0.1 X10*3/uL (0.0-0.2); Basophils Percent Auto 0.3 % (0-2); Eosinophils Absolute Auto 0.1 X10*3/uL (0.0-0.4); Eosinophils Percent Auto 0.6 % (0-4); Hematocrit 44.4 % (37.0-47.0); Imm Gran Abs Auto 0.18 X10*3/uL (0.00-0.03); Imm Gran Pct Auto 1.1 % (0.0-0.4); Lymphocytes Absolute Auto 2.3 X10*3/uL (1.2-4.9); Lymphocytes Percent Auto 14.5 % (20-40); Mean Corpuscular HGB Conc 33.8 g/dl (31.0-35.0); Mean Corpuscular Hemoglobin 29.6 pg (27.0-33.0); Mean Corpuscular Volume 87.7 fL (80.0-98.0); Mean Platelet Volume 10.9 fL (9.4-12.3); Monocytes Absolute Auto 1.2 X10*3/uL (0.1-1.2); Monocytes Percent Auto 7.7 % (2-11); Neutrophils Percent Auto 75.8 % (45-73); Platelet Count 424 X10*3/uL (160-400); Red Blood Count 5.06 X10*6/uL (4.20-5.50); Red Cell Distribution Width 13.8 % (11.0-16.0); White Blood Count 15.8 X10*3/uL (4.8-10.8)
[2023-11-30 20:26] LABS: Alanine Aminotransferase 23 U/L (0-31); Albumin Level 4.6 g/dL (3.5-5.0); Alkaline Phosphatase 84 U/L (39-117); Anion Gap 13 (12-20); Aspartate Amino Transferase 20 U/L (5-31); Bilirubin Total 0.4 mg/dL (0.0-1.0); Blood Urea Nitrogen 14 mg/dL (9-16); Calcium 9.5 mg/dL (8.4-10.2); Carbon Dioxide 25 mmol/L (22-29); Chloride 107 mmol/L (96-108); Creatinine Clr Calc Pharmacy 63.5; Estimated Glomerular Filt Rate > 60; Glucose Random 105 mg/dL (60-115); Sodium 141 mmol/L (135-145); Total Protein 7.1 g/dL (6.5-8.0)
[2023-12-01 03:21] VITALS: BP 139/82; PULSE 68; RESP 18; TEMP 36.6; O2SAT 98
[2023-12-01 10:19] VITALS: BP 137/73; PULSE 67; RESP 18; O2SAT 100
[2023-12-01 10:30] LABS: Appearance Urine Cloudy; Color Urine Yellow; Glucose Urine UA Negative (Negative); Leukocyte Esterase Urine Small (1+) (Negative); Nitrite Urine Positive (Negative); Specific Gravity - Urine 1.015 (1.005-1.025); UMIC TRIGGER UACC YES; Urine Blood Small (1+) (Negative); Urine Ketones Negative (Negative); Urine Protein Negative (Neg-Trace)
[2023-12-01 10:47] LABS: Bacteria Urine 4+ (None Seen); Hyaline Casts Urine 0-2 /LPF (0-2); Squamous Epithelial Cell Urine 0-2 /HPF (0-2); UACC Culture Trigger YES
[2023-12-01] MEDS: 0.9 % Sodium Chloride 500 ML 999 ML IV (10:49)
[2023-12-01] MEDS: cefTRIAXone sodium 1 GM in 0.9 % Sodium Chloride 50 ML IV (10:55)
[2023-12-01] MEDS: Acetaminophen 325 MG TABLET 975 MG PO (11:28)
[2023-12-01 11:29] VITALS: BP 120/72; PULSE 72; RESP 16; O2SAT 97
[2023-12-01 11:50] LABS: Influenza A PCR NEGATIVE (Negative); Influenza B PCR NEGATIVE (Negative); Resp Syncy Virus RNA Qual PCR NEGATIVE (Negative); SARS COV2 PCR INHOUSE NEGATIVE (Negative)
--- NOTE | 2023-12-01 11:57 | PC.NURSE ---
Assumed care of this patient at 1100, patient states weakness has now resolved, c/o fatigue d/t prolonged ER stay/ headahce, medicated per OCT.
[2023-12-01 12:46] VITALS: BP 127/70; PULSE 80; RESP 16; TEMP -17.7; TEMP 0; O2SAT 98
== END 2023-12-01 12:47 | disposition home or self-care (01) ==
PROVIDERS: Physician Assistant Medical; Emergency Provider Student in an Organized Health Care Education/Training Program
DX: N12 Tubulo-interstitial nephritis, not specified as acute or chronic (principal); R51.9 Headache, unspecified; H53.8 Other visual disturbances; R26.81 Unsteadiness on feet; R11.0 Nausea; Z79.899 Other long term (current) drug therapy; Z11.52 Encounter for screening for COVID-19; Z20.822 Contact with and (suspected) exposure to COVID-19
CPT/HCPCS: 0241U; 36415; 70450; 80053; 81001; 85025; 87086; 87088; 87186; 96361; 96374; 99284; J0696

== ENCOUNTER 2023-12-13 09:51 | Outpatient (AMB) | payer OTHER, SELFPAY ==
--- NOTE | 2023-12-13 09:57 | MHC.OFFVIS ---
Vital Signs 12/13/23 09:58 Height 5 ft 3 in Weight 160 lb BMI 28.3 BP 131/73 Blood Pressure Location Lt brachial Position Sitting Respiration 14 Pulse 76 Pulse Source Pulse Oximeter Pulse Oximetry (%) 99 Oxygen Delivery Method Room Air Intake Visit Reasons: lumbar radiculopathy Allergies gluten [Gluten] Allergy (Severe, Verified 12/16/23 11:18) Gastrointestinal Upset Penicillins Allergy (Intermediate, Verified 12/16/23 11:18) Rash Sulfa (Sulfonamide Antibiotics) Allergy (Intermediate, Verified 12/16/23 11:18) Rash Codeine Phosphate Allergy (Intermediate, Uncoded 12/13/23 09:59) Nausea Medication List - Last Reconciled 12/13/23 by Maggie Oscar LPN aspirin (Adult Aspirin Regimen) 81 mg PO DAILY ibuprofen 1 tab PO TID PRN levothyroxine (Synthroid) 1 tab PO DAILY lidocaine 5% 1 patch topical DAILY PRN lorazepam 1 tab PO BID PRN omeprazole 20 mg PO DAILY pramipexole 1 mg PO BEDTIME HPI HPI lumbar radiculopathy: Details: 68-year-old female who presents today to the office for a lumbar radiculopathy. She has a history of L3-4 lumbar fusion in 2004, bilateral cataract surgery, right foot surgery x2 at [facility], appendectomy, and tonsillectomy. Hypothyroidism, anxiety, restless legs, GERD. She has a long history of low back pain, and back in 2005, she had an injury at work while at [employer]. She had a L3-[address] Franz as a result of this injury. She had some relief from her back pain, which gradually returned as the years progressed. She states that lying down and standing in a seated position makes her pain worse, and that sitting helps to alleviate her pain. She reports no increased aggravation or alleviation from walking. She states that her low back pain is accompanied by some radicular pain in her bilateral posterior thighs. She has difficulty standing back from the bending position. She states that on the left, the pain radiates farther down her leg, wraps around the front of her thigh, and terminates at her left knee. She states that she attempted physical therapy earlier this year without significant relief. She has not yet attempted cortisone injections for this issue. She also reports posterior neck pain with radiation down her right arm. She states that it goes over the top of her shoulder, down the lateral aspect of her arm, and terminates near her wrist. She describes this as low-grade pain, but does state it is associated with some changes in temperature sense on the right. She reports that her right arm always feels ?colder? than her left. She states that her radicular pain on the right side is waxing or waning and comes and goes depending on the day. She has had injections in her right shoulder in the past with no relief. She is going to [place] on 01/02/2024 for vacation. FORMERLY [facility] Medical History Chest pain Crescendo angina Angina pectoris Hypothyroidism Low back pain COVID-19 vaccine series completed Anxiety GERD (gastroesophageal reflux disease) Celiac disease Restless leg syndrome Surgical History Hx of bilateral cataract extraction History of esophagogastroduodenoscopy (EGD) Hx of colonoscopy Hx of foot surgery Hx of tonsillectomy Hx of appendectomy History of back surgery Family History Daughter Celiac disease Social History Household Members: Children Household Members Other:: son age 17 Housing: House Are you a primary customer care representative to a significant other at home: No Do you presently have visiting nurse or other home services: No Alcohol intake: current Alcohol intake frequency: holidays/special occasions only Patient Tobacco Use Status: Former Tobacco user Quit Date: 2000 Tobacco use type: Cigarette Advance Directives Date on File: 03/14/21 service: No Current occupational status: employed Current [place] [employer] [place] 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 Review of Systems Const All systems reviewed & are unremarkable except as noted in HPI and below Physical Exam Vital Signs: Last Vital Signs Pulse 76 12/13/23 09:58 Resp 14 12/13/23 09:58 BP 131/73 12/13/23 09:58 Pulse Ox 99 12/13/23 09:58 Oxygen Delivery Method Room Air 12/13/23 09:58 BMI result Body Mass Index 28.3 General: Appears afebrile. Alert and oriented. Mood and affect appropriate. Follows and participates in conversation appropriately. Respiratory effort is unlabored. Able to transition from sit to stand unassisted. Ambulates with bilaterally normal heel strike and toe off. Results Reviewed Results Reviewed: 11/01/23: MR CERVICAL SPINE WITHOUT CONTRAST. MR LUMBAR SPINE WITHOUT CONTRAST. FINDINGS: CERVICAL SPINE MRI: Cervical alignment is normal. There is moderate to severe disc volume loss at C5-C6 and C6-C7. Vertebral body heights are maintained. The craniocervical junction is unremarkable. There is no bone marrow edema. There are no acute fractures. The partially imaged intracranial compartment is unremarkable. The cervical arterial flow voids are maintained. There are no significant extraspinal soft tissue findings. C2-C3: Posterior disc contour is normal. No central canal stenosis and no foraminal stenosis. C3-C4: Disc contour is normal. Mild bilateral facet arthropathy. No central canal stenosis and no foraminal stenosis. C4-C5: Disc osteophyte without central canal stenosis. Uncovertebral joint spurring and facet arthropathy result in mild right-sided foraminal encroachment. C5-C6: A shallow right paracentral disc protrusion and ligamentum flavum thickening mildly narrow the central canal. Uncovertebral joint spurring and facet arthropathy result in moderate to severe right-sided foraminal stenosis. C6-C7: Disc osteophyte mildly narrows the central canal. Uncovertebral joint spurring and facet arthropathy result in severe right and moderate left foraminal stenosis. C7-T1: Disc contour is normal. No central canal stenosis and no foraminal stenosis. LUMBAR SPINE MRI: There are 5 nonrib-bearing lumbar-type vertebral bodies. There is grade 1 retrolisthesis of L1 on L2. Lumbar alignment is otherwise normal. The vertebral body heights are maintained. There is an interbody cage at L3-L4 anteriorly. Intraosseous hemangiomas within the L4 and S1 vertebral bodies. There is no bone marrow edema. There are no acute fractures. Conus terminates at the L1-L2 level. Extrarenal pelvises bilaterally. Partially imaged fibroid uterus. L1-L2: Grade 1 retrolisthesis. Small annular disc bulge. No central canal stenosis and no foraminal stenosis. Findings unchanged. L2-L3: Disc contour is normal. No central canal stenosis and no foraminal stenosis. L3-L4: Interbody cage in place. Mild bilateral facet arthropathy. No central canal stenosis and no foraminal stenosis. L4-L5: There is a similar right lateral disc protrusion that along with advanced facet arthropathy results in similar moderate right-sided foraminal stenosis and mass effect on the extraforaminal right L4 nerve root. There is a background annular disc bulge and there is bilateral facet arthropathy and ligamentum flavum thickening. Similar narrowing of the subarticular zones with mild mass effect on the traversing L5 nerve roots bilaterally. L5-S1: Diffuse annular disc bulge and severe bilateral facet arthropathy. No central canal stenosis. Mild foraminal encroachment bilaterally. IMPRESSION: - Multilevel cervical spondylosis. Spondylitic changes result in moderate to severe right C5-C6 as well as severe right and moderate left C6-C7 foraminal stenosis. There is no severe central canal stenosis within the cervical spine. - Stable appearing multilevel lumbar spondylosis. Interbody cage again noted L3-L4. At L4-L5, a right lateral disc protrusion and advanced facet arthropathy result in similar moderate right-sided foraminal stenosis and mass effect on the extraforaminal right L4 nerve root. Spondylitic changes at L4-L5 result in similar bilateral subarticular zone stenosis with mass effect on the traversing L5 nerve roots bilaterally. Additional stable degenerative findings throughout the lumbar spine as described. - Partially imaged fibroid uterus. 08/19/23: BONE DENSITOMETRY FINDINGS: LEFT FEMUR, NECK: Current: BMD 0.824 g/cm2, Z-score -0.2, T-score -1.5, osteopenia. Baseline: BMD 0.850 g/cm2. LEFT FEMUR, TOTAL: Current: BMD 0.842 g/cm2, Z-score -0.2, T-score -1.3, osteopenia, 7.0% decrease from baseline (<5% change is not significant). Baseline: BMD 0.905 g/cm2. AP SPINE L1-L2 (excluding L3 and L4): The data of L1-L4 has been changed to exclude the L3 and L4 vertebral bodies, because degenerative sclerosis at these levels may cause overestimation of lumbar spine density. Current: BMD 0.885 g/cm2, Z-score -1.0, T-score -2.3, osteopenia, 4.1% decrease from baseline (<5% change is not significant). Baseline: BMD 0.923 g/cm2. IDENTIFIED RISK FACTORS: Menopause, height loss. HISTORY OF FRACTURE: None listed. MEDICATIONS: Vitamin D. IMPRESSION: 1. DIAGNOSIS: Osteopenia based on the lowest T-score value of -2.3 in the lumbar spine applying World Health Organization criteria. 2. 10-YEAR FRACTURE RISK PREDICTION, FRAX: Major osteoporotic fracture (clinical spine, forearm, hip or shoulder) 9.2%. Hip fracture 1.1%. 3. Treatment Recommendations: NOF guidelines recommend consideration for treatment in postmenopausal women and men age 50 and older presenting with the following: -A hip or vertebral (clinical or morphometric) fracture. -T-score less than or equal to -2.5 at the femoral neck or spine after appropriate evaluation to exclude secondary causes. -Low bone mass at the hip or spine and a 10-year fracture probability by FRAX of greater than or equal to 3% for hip fracture or greater than or equal to 20% for major osteoporotic fracture based on the [place] adapted WHO algorithm. Assessment & Plan Assessment & Plan (1) Lumbar spondylosis: Code(s): M47.816 - Spondylosis without myelopathy or radiculopathy, lumbar region Category: Medical Plan Discussed facet block injections vs. intracept procedure vs. spinal cord stimulator as a possible treatment option. Brochures were provided to the patient. Will schedule her for bilateral therapeutic L4-L5-S1 facet blocks with steroid. Discussed the risks and benefits of the procedure with the patient in detail. All questions were answered. The patient is on board with the plan. Justification for interventional therapy: ? Patient with average pain > 6/10 ? Patient has exhausted conservative therapy . Patient has a good understanding of their pain condition and has appropriate mental and social support Scribed for Dr. Serna by Hernando Pleitez, medical claims representative, on 12/13/2023. I, Dr. Serna, have personally reviewed and agree with the information entered by the scribe. Coding Level of Care Code Est Pt Level 4 (62394) Diagnoses Lumbar spondylosis M47.816
[2023-12-13 09:58] VITALS: BP 131/73; PULSE 76; RESP 14; O2SAT 99; BMI 28.3
== END 2023-12-13 10:34 | disposition home or self-care (01) ==
LOC: HO.PMC 09:55
PROVIDERS: Visit Provider Internal Medicine
DX: M47.816 Spondylosis without myelopathy or radiculopathy, lumbar region (principal)
CPT/HCPCS: 99214

== ENCOUNTER → 2023-12-13 09:55 | Outpatient (BNVA) | payer OTHER, SELFPAY | PROVIDERS: Visit Provider Internal Medicine ==

== ENCOUNTER 2023-12-16 06:15 | Outpatient (REF) | payer OTHER, SELFPAY ==
--- NOTE | ~2023-12-16 | FL_ITS ---
EXAMINATION: XR FLUOROSCOPY WITH IMAGES CLINICAL INFORMATION: Postlaminectomy syndrome, bilateral lumbar. COMPARISON: None available. TECHNIQUE: Fluoroscopy Supervised By: Dr. Serna. Fluoroscopy Time: 0.2 min. Cumulative Dose: 2.37 mGy. DAP: 0.0249 Gy-cm2. Images: 2. FINDINGS: Fluoroscopic guidance provided for procedure performed by Dr. Serna. Wires and clips project over image spine. Please refer to detailed operative report for further evaluation. FL/FL guidance in treatment room IMPRESSION: Fluoroscopic guidance provided for procedure performed by Kareem. Please refer to operative report for more detailed evaluation.
== END 2023-12-16 06:16 | disposition home or self-care (01) ==
LOC: CF 06:15
PROVIDERS: Visit Provider Internal Medicine
DX: M96.1 Postlaminectomy syndrome, not elsewhere classified (principal); M47.816 Spondylosis without myelopathy or radiculopathy, lumbar region
CPT/HCPCS: 64493; 64494; J1010; J2795; Q9967

== ENCOUNTER 2023-12-16 11:36 | Outpatient (AMB) | payer OTHER, SELFPAY ==
[2023-12-16 11:17] VITALS: BP 112/66; PULSE 90; RESP 14; O2SAT 97; BMI 28.3
--- NOTE | 2023-12-16 11:17 | A.OFFVIS_ITS ---
Vital Signs 12/16/23 11:17 12/16/23 11:43 Height 5 ft 3 in 5 ft 3 in Weight 160 lb 160 lb BMI 28.3 28.3 BP 112/66 116/84 Blood Pressure Location Lt brachial Lt brachial Position Sitting Sitting Respiration 14 14 Pulse 90 91 Pulse Source Pulse Oximeter Pulse Oximeter Pulse Oximetry (%) 97 96 Oxygen Delivery Method Room Air Room Air Comment pre-op post-op Intake Visit Reasons: Gurjit L4-L5-S1 facet inj Allergies gluten [Gluten] Allergy (Severe, Verified 12/16/23 11:18) Gastrointestinal Upset Penicillins Allergy (Intermediate, Verified 12/16/23 11:18) Rash Sulfa (Sulfonamide Antibiotics) Allergy (Intermediate, Verified 12/16/23 11:18) Rash Codeine Phosphate Allergy (Intermediate, Uncoded 12/13/23 09:59) Nausea HPI HPI Gurjit L4-L5-S1 facet inj: Details: Patient presents for scheduled procedure. Denies any recent cough, cold, infection, fever or other significant changes in medical history since last office visit. FORMERLY [facility] Medical History Chest pain Crescendo angina Angina pectoris Hypothyroidism Low back pain COVID-19 vaccine series completed Anxiety GERD (gastroesophageal reflux disease) Celiac disease Restless leg syndrome Surgical History Hx of bilateral cataract extraction History of esophagogastroduodenoscopy (EGD) Hx of colonoscopy Hx of foot surgery Hx of tonsillectomy Hx of appendectomy History of back surgery Family History Daughter Celiac disease Social History Household Members: Children Household Members Other:: son age 17 Housing: House Are you a primary pet care technician to a significant other at home: No Do you presently have visiting nurse or other home services: No Alcohol intake: current Alcohol intake frequency: holidays/special occasions only Patient Tobacco Use Status: Former Tobacco user Quit Date: 2000 Tobacco use type: Cigarette Advance Directives Date on File: 03/14/21 service: No Current occupational status: employed 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/ 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 Physical Exam Vital Signs: Last Vital Signs Pulse 91 12/16/23 11:43 Resp 14 12/16/23 11:43 BP 116/84 12/16/23 11:43 Pulse Ox 96 12/16/23 11:43 Oxygen Delivery Method Room Air 12/16/23 11:43 BMI result Body Mass Index 28.3 Office Procedures Lumbar/Sacral Facet Inj Details: Lumbar Facet Injections, Bilateral, L4/L5, L5/S1 After obtaining written consent, pre-procedure blood pressure and pulse were recorded and are in the nursing record for review. The patient was placed in a prone position. The respective lumbosacral area was prepped with chloraprep and draped in sterile fashion. The target facet joints were visualized using ipsilateral oblique fluoroscopy to reveal the joint line. The skin over the target facet joints was anesthetized with 0.5% lidocaine. A 22 gauge 3.5 inch needle with a small bend on the tip was advanced towards the target facet joint under fluoroscopic guidance until bony contact. The needle was then maneuvered and rotated until it slid into the joint slightly. No paresthesias were elicited with needle placement and aspiration was negative for blood and CSF. Next, 20mg of methylprednisone mixed with 0.5 ml 0.5% ropivicaine was injected (0.5cc total per level). The identical procedure was performed at the remaining levels. The skin was cleansed and a sterile bandage was applied. Following the procedure the patient's vital signs were stable. The patient tolerated the procedure well and no complications were encountered. Following the procedure the patient's vital signs were stable. The patient was discharged home in good condition with post-procedural instructions. Time Out: Immediately prior to the procedure, the following was verbally confirm ed that there is a signed consent form and that the correct patient, planned procedure, site and side are consistent with documentation and that necessary equipment and/or blood products are available prior to the start of the case. Complications: none EBL: <5 cc 63141 - second level, with Fluoroscopy (bilateral) Procedure code (CPT) selection complete Assessment & Plan Assessment & Plan (1) Lumbar spondylosis: Code(s): M47.816 - Spondylosis without myelopathy or radiculopathy, lumbar region Category: Medical Plan Patient is status post bilateral L4/5 and L5/S1 facet blocks. Patient tolerated procedure well and was discharged home in stable condition with discharge instructions. All questions were answered. We will follow-up via telephone or in clinic to assess response to therapy. A follow-up appointment was made during today's visit. Orders: Orders FL guidance in treatment room Today M96.1 - Postlaminectomy syndrome, not elsewhere classified Coding Level of Care Code Procedure Only Diagnoses Lumbar spondylosis M47.816 CPT Codes Facet Injection-Lumbar/Sacral - CPT: 66917 - second level, with Fluoroscopy ([id number])
[2023-12-16 11:43] VITALS: BP 116/84; PULSE 91; RESP 14; O2SAT 96; BMI 28.3
== END 2023-12-16 11:43 | disposition home or self-care (01) ==
LOC: HO.PMCPRC 11:36
PROVIDERS: PCP Registered Nurse; Visit Provider Internal Medicine
DX: M47.816 Spondylosis without myelopathy or radiculopathy, lumbar region (principal)
CPT/HCPCS: 64493; 64494

== ENCOUNTER 2023-12-17 07:07 | Outpatient (REF) | payer OTHER, SELFPAY ==
[2023-12-17 10:25] LABS: MANUAL DIFF FLAG NO
[2023-12-17 10:34] LABS: Basophils Absolute Auto 0.1 X10*3/uL (0.0-0.2); Basophils Percent Auto 0.3 % (0-2); Eosinophils Percent Auto 0.1 % (0-4); Hematocrit 42.5 % (37.0-47.0); Hemoglobin 14.1 g/dl (12.0-16.0); Imm Gran Abs Auto 0.08 X10*3/uL (0.00-0.03); Imm Gran Pct Auto 0.4 % (0.0-0.4); Lymphocytes Absolute Auto 1.1 X10*3/uL (1.2-4.9); Lymphocytes Percent Auto 5.6 % (20-40); Mean Corpuscular HGB Conc 33.2 g/dl (31.0-35.0); Mean Corpuscular Hemoglobin 29.4 pg (27.0-33.0); Mean Corpuscular Volume 88.5 fL (80.0-98.0); Mean Platelet Volume 12.5 fL (9.4-12.3); Monocytes Absolute Auto 1.1 X10*3/uL (0.1-1.2); Monocytes Percent Auto 5.9 % (2-11); Neutrophils Absolute Auto 16.4 x10*3/uL (2.0-8.3); Neutrophils Percent Auto 87.7 % (45-73); Platelet Count 354 X10*3/uL (160-400); Red Cell Distribution Width 14.3 % (11.0-16.0); White Blood Count 18.7 X10*3/uL (4.8-10.8)
[2023-12-17 10:53] LABS: Estimated Average Glucose 111 mg/dL; Hemoglobin A1c % 5.5 % (<6.0)
[2023-12-17 11:16] LABS: Erythrocyte Sedimentation Rate 7 MM/HR (0-20)
[2023-12-17 11:33] LABS: Alanine Aminotransferase 30 U/L (0-31); Albumin Level 4.5 g/dL (3.5-5.0); Alkaline Phosphatase 85 U/L (39-117); Anion Gap 11 (12-20); Aspartate Amino Transferase 33 U/L (5-31); Bilirubin Total 0.6 mg/dL (0.0-1.0); Blood Urea Nitrogen 12 mg/dL (9-16); C Reactive Protein 0.29 mg/dL (< or = 0.50); Calcium 9.9 mg/dL (8.4-10.2); Carbon Dioxide 25 mmol/L (22-29); Chloride 108 mmol/L (96-108); Cholesterol 275 mg/dL (<200); Estimated Glomerular Filt Rate > 60; Glucose Random 117 mg/dL (60-115); HDL Cholesterol 68 mg/dL (>40); Iron 62 mcg/dL (30-160); LDL Cholesterol Calculated 190 mg/dL (<100); Percent Iron Saturation 18 % (15-50); Potassium 3.9 mmol/L (3.3-5.1); Sodium 140 mmol/L (135-145); Total Iron Binding Capacity 348 mcg/dL (228-428); Total Protein 7.1 g/dL (6.5-8.0); Triglycerides 85 mg/dL (<150); Unsaturated Iron Binding 286 ug/dL
[2023-12-17 11:37] LABS: Thyroid Stimulating Hormone 0.39 uIU/mL (0.32-4.0)
[2023-12-17 12:31] LABS: Vitamin B12 958 pg/mL (200-900)
== END 2023-12-17 07:08 | disposition home or self-care (01) ==
LOC: HO.HMGCLDS 07:07
PROVIDERS: PCP Registered Nurse; Referring Provider Physician Assistant Surgical; Visit Provider Nurse Practitioner Family
DX: E03.9 Hypothyroidism, unspecified (principal); R79.89 Other specified abnormal findings of blood chemistry; E78.2 Mixed hyperlipidemia; G45.9 Transient cerebral ischemic attack, unspecified
CPT/HCPCS: 36415; 80053; 80061; 82607; 83036; 83540; 84443; 85025; 85652; 86140

== ENCOUNTER 2023-12-18 13:34 | Outpatient (REF) | payer OTHER, SELFPAY ==
--- NOTE | ~2023-12-18 | MR_ITS ---
EXAMINATION: MR BRAIN WITHOUT CONTRAST MR ANGIOGRAPHY HEAD WITHOUT CONTRAST CLINICAL INFORMATION: TIA. Vertigo and decreased vision. COMPARISON: MRI dated 02/10/2019. Head CT from 11/30/2023. MRA head dated 01/28/2018. TECHNIQUE: Multiplanar, multisequence imaging of the brain was obtained without intravenous administration of contrast. 3-D pure-ip-owdzih MR angiography is performed. Multiple 3-D reformatted images are processed on the technologist workstation. Slightly limited study with motion artifacts. FINDINGS: No diffusion abnormalities are identified to suggest an acute infarct. No mass effect or midline shift is seen. Nonspecific scattered white matter signal changes have mildly progressed, more so on the posterior biparietal regions. Mild generalized brain parenchymal volume loss noted. No extra-axial fluid collections are seen. The brainstem and cerebellum are normal. No pathologic magnetic susceptibility artifact is identified on the gradient refocused acquisition. The craniovertebral junction, marrow signal, and midline structures are normal. No imaging findings suspicious for hydrocephalus. The major intracranial flow voids at the level of the [place] are preserved. The dural venous sinus flow voids are maintained. The mastoid air cells and paranasal sinuses are fairly well aerated. MRA of the [place] demonstrates a normal caliber to the anterior and posterior circulation vasculature. No stenoses or occlusions are seen. No vascular malformation or aneurysms are identified. MR/MR head/brain wo con IMPRESSION: No acute intracranial process. Progressed mild scattered white matter signal changes which may be due to chronic microangiopathy. Mild generalized brain parenchymal volume loss. Normal MRA of the head.
--- NOTE | ~2023-12-18 | MR_ITS ---
EXAMINATION: MR BRAIN WITHOUT CONTRAST MR ANGIOGRAPHY HEAD WITHOUT CONTRAST CLINICAL INFORMATION: TIA. Vertigo and decreased vision. COMPARISON: MRI dated 02/10/2019. Head CT from 11/30/2023. MRA head dated 01/28/2018. TECHNIQUE: Multiplanar, multisequence imaging of the brain was obtained without intravenous administration of contrast. 3-D zeat-fw-omoyuw MR angiography is performed. Multiple 3-D reformatted images are processed on the technologist workstation. Slightly limited study with motion artifacts. FINDINGS: No diffusion abnormalities are identified to suggest an acute infarct. No mass effect or midline shift is seen. Nonspecific scattered white matter signal changes have mildly progressed, more so on the posterior biparietal regions. Mild generalized brain parenchymal volume loss noted. No extra-axial fluid collections are seen. The brainstem and cerebellum are normal. No pathologic magnetic susceptibility artifact is identified on the gradient refocused acquisition. The craniovertebral junction, marrow signal, and midline structures are normal. No imaging findings suspicious for hydrocephalus. The major intracranial flow voids at the level of the [place] are preserved. The dural venous sinus flow voids are maintained. The mastoid air cells and paranasal sinuses are fairly well aerated. MRA of the [place] demonstrates a normal caliber to the anterior and posterior circulation vasculature. No stenoses or occlusions are seen. No vascular malformation or aneurysms are identified. MR/MR angio head wo con IMPRESSION: No acute intracranial process. Progressed mild scattered white matter signal changes which may be due to chronic microangiopathy. Mild generalized brain parenchymal volume loss. Normal MRA of the head.
== END 2023-12-18 13:35 | disposition home or self-care (01) ==
LOC: HO.MRI 13:34
PROVIDERS: PCP Registered Nurse; Visit Provider Physician Assistant Surgical
DX: G45.9 Transient cerebral ischemic attack, unspecified (principal)
CPT/HCPCS: 70544; 70551

== ENCOUNTER → 2023-12-21 08:53 | Outpatient (REF) | payer OTHER, SELFPAY ==
--- NOTE | 2023-12-21 08:57 | CA_ITS ---
Transthoracic Echocardiogram Patient (Last, First, Middle): Yahaira Jaeger M Gender: Female Date of : 1955 Age: 68 Procedure Date: 12/21/2023 Procedure Type: Transthoracic Echocardiogram Location: OP Height: 160.02 cm Weight: 71.67 kg BSA: 1.75 m2 Heart Rate: 63 bpm BP: 120 / 80 mmHg [place] T[place] Mate: RADHA Referring MD: Miguel Juan PA-C Symptoms: G45.9 TIA Study Quality: Fair ECG Rhythm: Sinus Conclusions: - The left ventricular systolic function is normal. The calculated ejection fraction is 62% by biplane method. - No obvious valvular pathology seen on this study. Findings Left Ventricle Normal left ventricular cavity size. There is normal left ventricular wall thickness. The left ventricular systolic function is normal. The calculated ejection fraction is 62% by biplane method. There is no evidence of regional wall motion abnormalities. Diastolic function is normal for age. LV peak GLS -17.7%. Right Ventricle Normal right ventricular cavity size. There is mildly decreased right ventricular systolic function. Atria Both atria are normal in size. Aortic Valve There is a normal trileaflet aortic valve. There is no aortic valve stenosis. There is no aortic valve regurgitation. Mitral Valve The mitral valve appears normal. There is mild mitral valve regurgitation. There is no mitral valve stenosis. Pulmonic Valve The pulmonic valve is likely normal. There is trace pulmonic valve regurgitation. Tricuspid Valve Normal tricuspid valve structure. There is trace tricuspid valve regurgitation. There is no evidence of pulmonary hypertension. Great Vessels The asc aorta is normal in size. Venous The inferior vena cava is normal in size and collapses greater than 50% with inspiration. Pericardium/Pleural There is no evidence of pericardial effusion. Prior Study Comparison No prior study available for comparison. Recommendations, Care & Conclusions No obvious valvular pathology seen on this study. Measurements 2D Linear Measurements IVSd: 0.80 0.6-0.9/0.6-1.0 cm LVIDd: 4.66 3.9-5.3/4.2-5.9 cm LVIDd Index: 2.66 2.4-3.2/2.2-3.1 cm/m2 LVIDs: 3.18 2.0-3.6 cm LVPWd: 0.91 0.7-1.1 cm LA Diam: 3.30 2.7-3.8/3.0-4.0 cm LAIDs Index: 1.89 1.5-2.3 cm/m2 LV Mass: 163.95 67-162/88-224 g LV Mass Index: 93.69 43-95/49-115 g/m2 LVOT Diam: 1.90 3.0+(-)1.3 cm 2D Systolic Function EF 4C: 59.00 >55% EF 2C: 65.40 >55% EF BiP: 61.80 >55% Mitral Valve MV Pk E: 0.76 MV PK A: 0.78 MV Decel Time: 173.00 E/A: 1.00 E'Lateral: 8.49 E'Medial: 7.18 E/E' Med: 10.60 E/E' Lat: 9.00 PHT: 51.00 MVA PHT: 4.31 Decel Jay: 4.40 Aortic Valve AoV Pk Paul: 1.18 AoV Mn Paul: 0.92 AoV VTI: 0.27 AoV Pk Grad: 6.00 Aov Mn Grad: 4.00 JENNY Cont.VTI: 2.16 LVOT LVOT Pk Paul: 0.97 LVOT Mn Paul: 0.69 LVOT VTI: 0.20 LVOT Pk Grad: 4.00 LVOT Mn Grad: 2.00 LVOT Diam: 1.90 LVOT Area: 2.84 Diastolic Function MV Pk E: 0.76 MV Pk A: 0.78 E/A: 1.00 E'Medial: 7.18 E/E' Med: 10.60 E' Laterial: 8.49 E/E' Lat: 9.00 Right Ventricle TAPSE (mm): 17.10 TVS' Paul: 9.25 Tricuspid Valve TR Pk Paul: 1.75 TR Pk Grad: 12.00 RA Press: 3.00 RVSP: 15.00 Great Vessels Aorta Sinus of Valsalva: 3.20 2.0-3.5 cm Ao Asc: 3.30 2.1-3.4 cm Pulmonary Valve PV Pk Paul: 0.79 Peak PV Grad: 2.00 Updated in Other Vendor System with Status of Final Larry Myers MD electronically signed on 12/22/2023 12:21:53 PM with status of Final
== END ==
LOC: HO.CARD 08:53
PROVIDERS: PCP Registered Nurse; Visit Provider Physician Assistant Surgical
DX: G45.9 Transient cerebral ischemic attack, unspecified (principal)
CPT/HCPCS: 93306; 93356

== ENCOUNTER → 2023-12-21 08:57 | Outpatient (BNV) | payer OTHER, SELFPAY | PROVIDERS: PCP Registered Nurse; Visit Provider Internal Medicine | DX: I34.0 Nonrheumatic mitral (valve) insufficiency (principal) | CPT/HCPCS: 93306; 93356 ==

== ENCOUNTER 2023-12-31 12:09 | Outpatient (REF) | payer OTHER, SELFPAY ==
[2023-12-31 12:27] LABS: MANUAL DIFF FLAG NO
[2023-12-31 12:42] LABS: Basophils Absolute Auto 0.1 X10*3/uL (0.0-0.2); Basophils Percent Auto 0.6 % (0-2); Eosinophils Absolute Auto 0.1 X10*3/uL (0.0-0.4); Eosinophils Percent Auto 1.1 % (0-4); Hematocrit 40.8 % (37.0-47.0); Hemoglobin 13.8 g/dl (12.0-16.0); Imm Gran Abs Auto 0.05 X10*3/uL (0.00-0.03); Imm Gran Pct Auto 0.5 % (0.0-0.4); Lymphocytes Percent Auto 18.9 % (20-40); Mean Corpuscular HGB Conc 33.8 g/dl (31.0-35.0); Mean Corpuscular Hemoglobin 30.1 pg (27.0-33.0); Mean Corpuscular Volume 89.1 fL (80.0-98.0); Monocytes Absolute Auto 0.9 X10*3/uL (0.1-1.2); Monocytes Percent Auto 8.3 % (2-11); Neutrophils Absolute Auto 7.5 x10*3/uL (2.0-8.3); Neutrophils Percent Auto 70.6 % (45-73); Platelet Count 339 X10*3/uL (160-400); Red Blood Count 4.58 X10*6/uL (4.20-5.50); Red Cell Distribution Width 14.5 % (11.0-16.0); White Blood Count 10.7 X10*3/uL (4.8-10.8)
== END 2023-12-31 12:10 | disposition home or self-care (01) ==
LOC: HO.LAB 12:09
PROVIDERS: PCP Registered Nurse; Visit Provider Registered Nurse
DX: D72.829 Elevated white blood cell count, unspecified (principal)
CPT/HCPCS: 36415; 85025

== ENCOUNTER 2024-01-24 11:07 | Outpatient (AMB) | payer OTHER, SELFPAY ==
--- NOTE | 2024-01-24 11:09 | A.OFFVIS_ITS ---
Vital Signs 01/24/24 11:12 Height 5 ft 3 in BP 108/72 Blood Pressure Location Lt brachial Position Sitting Respiration 14 Pulse 58 Pulse Source Pulse Oximeter Pulse Oximetry (%) 96 Oxygen Delivery Method Room Air Intake Visit Reasons: s/p facet blocks Allergies gluten [Gluten] Allergy (Severe, Verified 01/24/24 11:13) Gastrointestinal Upset Penicillins Allergy (Intermediate, Verified 01/24/24 11:13) Rash Sulfa (Sulfonamide Antibiotics) Allergy (Intermediate, Verified 01/24/24 11:13) Rash Codeine Phosphate Allergy (Intermediate, Uncoded 01/24/24 11:13) Nausea Medication List - Last Reconciled 01/24/24 by Maggie Oscar LPN aspirin (Adult Aspirin Regimen) 81 mg PO DAILY ibuprofen 1 tab PO TID PRN levothyroxine (Synthroid) 1 tab PO DAILY lidocaine 5% 1 patch topical DAILY PRN lorazepam 1 tab PO BID PRN omeprazole 20 mg PO DAILY pramipexole 1 mg PO BEDTIME HPI HPI s/p facet blocks: Details: 68-year-old female who presents today to the office for a status post facet block. The patient reports 60?70% relief following the procedure for a month. She reviewed the details of the basi-vertebral nerve ablation, and she does not want to proceed with that. She mows her lawn and does her ADLs. She is interested in other treatment options. She reports axial low back pain that is constant. Past procedures 12/16/23: Lumbar Facet Injections, Bilateral, L4/L5, L5/S1: 60-70% relief for a month. [facility] Medical History Chest pain Crescendo angina Angina pectoris Hypothyroidism Low back pain COVID-19 vaccine series completed Anxiety GERD (gastroesophageal reflux disease) Celiac disease Restless leg syndrome Surgical History Hx of bilateral cataract extraction History of esophagogastroduodenoscopy (EGD) Hx of colonoscopy Hx of foot surgery Hx of tonsillectomy Hx of appendectomy History of back surgery Family History Daughter Celiac disease Social History Household Members: Children Household Members Other:: son age 17 Housing: House Are you a primary medicare sales representative to a significant other at home: No Do you presently have visiting nurse or other home services: No Alcohol intake: current Alcohol intake frequency: holidays/special occasions only Patient Tobacco Use Status: Former Tobacco user Tobacco use type: Cigarette Advance Directives Date on File: 03/14/21 service: No Current occupational status: employed Current occupation: [employer] [place]/ 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 Review of Systems Const All systems reviewed & are unremarkable except as noted in HPI and below Physical Exam Vital Signs: Last Vital Signs Pulse 58 01/24/24 11:12 Resp 14 01/24/24 11:12 BP 108/72 01/24/24 11:12 Pulse Ox 96 01/24/24 11:12 Oxygen Delivery Method Room Air 01/24/24 11:12 General: Appears afebrile. Alert and oriented. Mood and affect appropriate. Follows and participates in conversation appropriately. Respiratory effort is unlabored. Able to transition from sit to stand unassisted. Ambulates with bilaterally normal heel strike and toe off. Results Reviewed Results Reviewed: No imaging is available for review. Assessment & Plan Assessment & Plan (1) Lumbar spondylosis: Code(s): M47.816 - Spondylosis without myelopathy or radiculopathy, lumbar region Category: Medical (2) Intractable back pain: Code(s): M54.9 - Dorsalgia, unspecified Category: Medical Plan She had some relief from the facet injections but unfortunately this was limited in duration. She continues to have intractable back pain that affects her quality of life so she is interested in additional options. Discussed temporary nerve stimulators vs. permanent nerve stimulators as a possible treatment option. The patient will call us and let us know if she wants to proceed with the plan. In the meantime, I advised the patient to avoid strenuous bending or lifting activities. Scribed for Dr. Serna by Hernando Pleitez, medical resident, on 01/24/2024. I, Dr. Serna, have personally reviewed and agree with the information entered by the scribe. Coding Level of Care Code Est Pt Level 3 (21032) Diagnoses Lumbar spondylosis M47.816 Intractable back pain M54.9
[2024-01-24 11:12] VITALS: BP 108/72; PULSE 58; RESP 14; O2SAT 96
== END 2024-01-24 11:43 | disposition home or self-care (01) ==
LOC: HO.PMC 11:07
PROVIDERS: PCP Registered Nurse; Visit Provider Internal Medicine
DX: M47.816 Spondylosis without myelopathy or radiculopathy, lumbar region (principal); M54.9 Dorsalgia, unspecified
CPT/HCPCS: 99213

== ENCOUNTER → 2024-01-24 11:07 | Outpatient (BNVA) | payer OTHER, SELFPAY | PROVIDERS: PCP Registered Nurse; Visit Provider Internal Medicine ==

== ENCOUNTER 2024-02-21 12:52 | Outpatient (REF) | payer OTHER, SELFPAY ==
--- NOTE | ~2024-02-21 | XR_ITS ---
EXAMINATION: XR LUMBOSACRAL SPINE WITH FLEXION AND EXTENSION VIEWS CLINICAL INFORMATION: Dorsalgia, unspecified COMPARISON: MRI lumbar spine 11/04/2023 TECHNIQUE: AP, lateral, lateral flexion and extension views of the lumbar spine FINDINGS: There is mild curve of the upper lumbar spine, convex left. There 5 nonrib-bearing lumbar-type vertebral bodies. There is straightening of the usual lumbar lordosis which could be related to muscle spasm or due to postsurgical change. Height of vertebral bodies is well-maintained. Interbody cages seen at L3-L4 level. No evidence of hardware complication. Multiple surgical clips seen anterior to L3, L4 and L5. There is mild disc space narrowing at L1-L2, L4-L5 and L5-S1. There is multilevel degenerative facet joint disease. Mild retrolisthesis of L3 respect to L4. This decreases with flexion and resolves with extension. XR/XR lumbar spine 4V min IMPRESSION: 1. Mild curve of the upper lumbar spine, convex left. 2. Multilevel degenerative disc disease and degenerative facet joint disease. 3. Mild retrolisthesis of L3 respect to L4, as discussed above. 4. Postoperative change at L3-L4 without evidence of hardware complication
== END 2024-02-21 12:53 | disposition home or self-care (01) ==
LOC: HO.HOSX 12:52
PROVIDERS: PCP Registered Nurse; Visit Provider Physician Assistant
DX: M54.9 Dorsalgia, unspecified (principal)
CPT/HCPCS: 72110

== ENCOUNTER 2024-02-21 12:52 | Outpatient (AMB) | payer OTHER, SELFPAY ==
--- NOTE | 2024-02-21 12:54 | A.SPINEOV_ITS ---
Intake Visit Reasons: subsequent follow up Intake Note: Ms. Jaeger is here today for a F/u. 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 She has a history of an L3-[address] completed by Dr. Padron. She was recently evaluated by our colleagues in pain management and treated with cortisone injections which she states only provided about 60-70% relief for a few weeks. To recap when she was initially evaluated she stated that her low back pain was accompanied by some radicular pain into her bilateral posterior thighs. She stated that on the left the pain radiated farther down her leg and wrapped around the front of her thigh, terminating at the left knee. Today, she reports similar concerns and wished to discuss the possibility of fusion surger y. She also reported being interested in a referral to [facility] for a 2nd opinion regarding physiatry/pain management. Today, I sent Yahaira for a set of flexion/extension x-rays. These showed no evidence of instability. I also again reviewed the MRI imaging that we reviewed during her last visit, and do believe she has moderate central canal and bilateral foraminal stenosis at L4-5. But again I am not convinced that this is surgical, and am not fully convinced that this is the causative agent for her pain. I will be referring Yahaira to our colleagues at [facility] to discuss possible conservative treatments as a second opinion per the patients request. I do not believe she is a good fusion / surgical candidate at this time. If her symptoms significantly worsen over the course of the next 1-2 years, and she has significant ADL reduction (cannot mow her lawn, walk normally, care for her house) then she may be re-evaluated for a repeat MRI to see if any changes have occured. Brent Leigh MD,PhD [facility] Orders: Orders XR lumbar spine 4V min Today M54.9 - Dorsalgia, unspecified Referrals Pain Management Referral M54.9 - Dorsalgia, unspecified Coding Level of Care Code Est Pt Level 4 (06435) Diagnoses Intractable back pain M54.9
== END 2024-02-21 14:25 | disposition home or self-care (01) ==
PROVIDERS: PCP Registered Nurse; Visit Provider Physician Assistant
DX: M54.9 Dorsalgia, unspecified (principal)
CPT/HCPCS: 99214

== ENCOUNTER 2024-04-05 15:52 | Outpatient (REF) | payer OTHER, SELFPAY ==
--- NOTE | ~2024-04-05 | MR_ITS ---
EXAMINATION: MRI NECK WITHOUT AND WITH CONTRAST CLINICAL INFORMATION: Pain and swelling of the right submandibular gland. COMPARISON: MR brain 12/18/2023. TECHNIQUE: Multiplanar MR imaging of the neck was performed without and with contrast. A total of 7.5 mL Gadavist was utilized for this examination. FINDINGS: There are a few symmetrically distributed nonspecific cervical lymph nodes, none of which demonstrate pathological enhancement characteristics to suggest capsular invasion or central necrosis. The parotid and submandibular glands are normal. No abnormal mass or enhancement along the parotid or submandibular ducts. No evidence of duct ectasia. The pharyngeal mucosal spaces are symmetric. Parapharyngeal and retromaxillary fat is preserved. Support Services Tech spaces are symmetric. There is some asymmetric thickening of the lingual tonsillar tissue, greater on the left causing asymmetric effacement of the left glossotonsillar sulcus. The tongue base is otherwise unremarkable. Epiglottis is normal. Preepiglottic fat is preserved. Glottic and subglottic airways are patent. The thyroid gland is normal and the remainder of the visualized visceral soft tissues are normal. Lung apices are clear. Vascular flow voids within the neck are maintained. No abnormal mass or enhancement along the carotid sheaths. No spinal canal compromise. Mild right neuroforaminal encroachment at C5-C6 and C6-C7. No spinal canal compromise or cord compression. No abnormal intramedullary signal changes. The skull base is grossly intact. Limited visualization of intracranial anatomy reveals no abnormal finding. MR/MR orbits face neck wo/w con IMPRESSION: There is some asymmetric thickening of the lingual tonsillar tissue, greater on the left causing asymmetric effacement of the left glossotonsillar sulcus. Correlation with direct visualization is recommended with regard to this finding. Otherwise no abnormal mass or enhancement is visualized elsewhere within the [id number] of this examination to provide an explanation for this patient's symptoms. There are a few symmetrically distributed nonspecific cervical lymph nodes, none of which demonstrate worrisome enhancement characteristics.
[2024-04-05] MEDS: gadobutroL 7.5 ML VIAL IVPUSH (16:41)
== END 2024-04-05 15:53 | disposition home or self-care (01) ==
LOC: HO.MRI 15:52
PROVIDERS: Visit Provider Dentist Oral and Maxillofacial Surgery
DX: D11.7 Benign neoplasm of other major salivary glands (principal)
CPT/HCPCS: 70543; A9585

== ENCOUNTER 2024-04-11 06:57 | Outpatient (REF) | payer OTHER, SELFPAY ==
[2024-04-11 07:53] LABS: Cholesterol 214 mg/dL (<200); HDL Cholesterol 54 mg/dL (>40); LDL Cholesterol Calculated 126 mg/dL (<100); Triglycerides 171 mg/dL (<150)
[2024-04-11 08:10] LABS: TSH reflex Free T4 0.62 uIU/mL (0.32-4.0)
== END 2024-04-11 06:58 | disposition home or self-care (01) ==
LOC: HO.LAB 06:57
PROVIDERS: PCP Registered Nurse; Visit Provider Registered Nurse
DX: E78.00 Pure hypercholesterolemia, unspecified (principal); E03.9 Hypothyroidism, unspecified
CPT/HCPCS: 36415; 80061; 84443

== ENCOUNTER 2024-05-16 12:42 | Outpatient (REF) | payer OTHER, SELFPAY ==
--- NOTE | ~2024-05-16 | US_ITS ---
EXAMINATION: US PELVIS CLINICAL INFORMATION: Fibroids. Postmenopausal. COMPARISON: Pelvic ultrasound 02/25/2023. TECHNIQUE: Ultrasound of the pelvis is performed using both transabdominal and transvaginal transducers along with Doppler. Transvaginal imaging is performed due to inadequate visualization transabdominally. FINDINGS: Large fundal uterine mass measuring 6 x 6 x 7 cm, previously 6 x 6.5 x 7 cm. The size of this lesion limits the evaluation of the remaining of the uterus and endometrial canal by ultrasound. The right ovary is not seen. The left ovary is partially visualized measuring approximately 2.4 x 1.3 x 1.8 cm, 2.9 mL without discrete significant abnormality. No large amount of pelvic free fluid. US/US pelvic and transvaginal IMPRESSION: Again noted large uterine fundal mass measuring up to 7 cm, not significantly changed in size. This limits the evaluation of the remaining of the uterus and endometrium by ultrasound. Further characterization with pelvic MRI with and without intravenous contrast could be obtained as clinically warranted. Electronically signed by: Elisabeth Neil MD 05/18/2024 04:22 PM EDT
== END 2024-05-16 12:43 | disposition home or self-care (01) ==
LOC: HO.HMGCX 12:42
PROVIDERS: PCP Registered Nurse; Visit Provider Nurse Practitioner Adult Health
DX: D25.9 Leiomyoma of uterus, unspecified (principal)
CPT/HCPCS: 76830; 76856

== ENCOUNTER 2024-07-22 10:53 | Outpatient (REF) | payer OTHER, SELFPAY ==
[2024-07-22 15:55] LABS: Influenza A PCR NEGATIVE (Negative); Influenza B PCR NEGATIVE (Negative); Resp Syncy Virus RNA Qual PCR NEGATIVE (Negative); SARS COV2 PCR INHOUSE NEGATIVE (Negative)
== END 2024-07-22 10:54 | disposition home or self-care (01) ==
LOC: HO.LNP 10:53
PROVIDERS: PCP Registered Nurse; Visit Provider Physician Assistant Medical
DX: J06.9 Acute upper respiratory infection, unspecified (principal)
CPT/HCPCS: 0241U; 87880

== ENCOUNTER 2024-07-22 10:53 | Outpatient (AMB) | payer OTHER, SELFPAY ==
[2024-07-22 13:36] VITALS: BP 110/80; PULSE 83; TEMP 36.6; O2SAT 97; BMI 29.2
--- NOTE | 2024-07-22 13:36 | AM.OFFWIN_ITS ---
Intake Vital Signs 07/22/24 13:36 Height 5 ft 3 in Weight 165 lb BMI 29.2 BP 110/80 Blood Pressure Location Lt brachial Position Sitting Pulse 83 Pulse Source Pulse Oximeter Temp 97.9 F Temp Source Oral Pulse Oximetry (%) 97 Oxygen Delivery Method Room Air Intake Visit Reasons: EP Sinus pain, sore throat, ear, headache Intake Note: Pt is here today c/o sinus pain,sore throat,ear blocked and headache Patient Tobacco Use Status: Former Tobacco user Allergies gluten [Gluten] Allergy (Severe, Verified 07/22/24 13:37) Gastrointestinal Upset Penicillins Allergy (Intermediate, Verified 07/22/24 13:37) Rash Sulfa (Sulfonamide Antibiotics) Allergy (Intermediate, Verified 07/22/24 13:37) Rash Codeine Phosphate Allergy (Intermediate, Uncoded 07/22/24 13:37) Nausea PFSH Medical History Chest pain Crescendo angina Angina pectoris Hypothyroidism Low back pain COVID-19 vaccine series completed Anxiety GERD (gastroesophageal reflux disease) Celiac disease Restless leg syndrome Surgical History Hx of bilateral cataract extraction History of esophagogastroduodenoscopy (EGD) Hx of colonoscopy Hx of foot surgery Hx of tonsillectomy Hx of appendectomy History of back surgery Family History Daughter Celiac disease Social History Household Members: Children Household Members Other:: son age 17 Housing: House Are you a primary inpatient care manager rn to a significant other at home: No Do you presently have visiting nurse or other home services: No Alcohol intake: current Alcohol intake frequency: holidays/special occasions only Patient Tobacco Use Status: Former Tobacco user Tobacco use type: Cigarette Advance Directives Date on File: 03/14/21 service: No Current occupational status: employed Current occupation: [employer] [place]/ 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 Physical Exam Vital Signs: Last Vital Signs Temp 97.9 F 07/22/24 13:36 Pulse 83 07/22/24 13:36 BP 110/80 07/22/24 13:36 Pulse Ox 97 07/22/24 13:36 Oxygen Delivery Method Room Air 07/22/24 13:36 BMI result Body Mass Index 29.2 Results AMB Rapid Strep AMB Rapid Strep Negative Last Edit by Aletha Caba CMA on 07/22/24 13:56 Results Reviewed Results Reviewed: Laboratory Last Values Strep Scn [facility] Negative 07/22/24 13:43 Negative rapid strep test Assessment & Plan Assessment & Plan Orders: Orders AMB Rapid Strep Screen Today Z13.9 - Encounter for screening, unspecified SARS-CoV2/FLU/RSV Today J06.9 - Acute upper respiratory infection, unspecified Coding
== END 2024-07-22 14:14 | disposition home or self-care (01) ==
PROVIDERS: PCP Registered Nurse; Visit Provider Physician Assistant Medical
DX: Z13.9 Encounter for screening, unspecified (principal)

== ENCOUNTER 2024-08-03 07:18 | Outpatient (AMB) | payer OTHER, SELFPAY ==
--- NOTE | 2024-08-03 07:32 | A.OFFVIS_ITS ---
Vital Signs 08/03/24 07:33 Height 5 ft 3 in Weight 167 lb 6 oz BMI 29.6 BP 110/90 H Blood Pressure Location Lt brachial Position Sitting Pulse 82 Pulse Source Pulse Oximeter Pulse Oximetry (%) 95 Oxygen Delivery Method Room Air Intake Visit Reasons: ENP: HX TIA Marketing Production Specialist Required: No Allergies gluten [Gluten] Allergy (Severe, Verified 08/03/24 07:38) Gastrointestinal Upset Penicillins Allergy (Intermediate, Verified 08/03/24 07:38) Rash Sulfa (Sulfonamide Antibiotics) Allergy (Intermediate, Verified 08/03/24 07:38) Rash Codeine Phosphate Allergy (Intermediate, Uncoded 07/22/24 13:37) Nausea Medication List - Last Reconciled 08/03/24 by Hemalatha Cano MD aspirin (Adult Aspirin Regimen) 81 mg PO DAILY ibuprofen 1 tab PO TID PRN levothyroxine (Synthroid) 1 tab PO DAILY lidocaine 5% 1 patch topical DAILY PRN lorazepam 1 tab PO BID PRN omeprazole 20 mg PO DAILY pramipexole 1 mg PO BEDTIME Do you need a note to return to daycare/school/sports/work: No HPI Comments Details: 69y/o female comes for neurologicla evaluation . In November 2023 she had cortisone shot to her right shoulder and after the appointment she started having blurry vision ( in her car) , felt foggy . she called the ortho office where she got the shot. They asked her to go to ER but she sat in the car until her vision improved in 30 min and went home. when she was on the phone she felt her speech was slurred and had dizziness. she went home , rested and went to work . she had headaches on and off the whole day. she was still feeling foggy and dizzy , off balance - she went ER after 3 days .she was found to have pyelonephritis. she was treated with antibiotics . she is doing good since then she has chronic back pain and restless legs syndrome and affects her sleep.she reports excessive daytime fatigue, has anxiety related to family issues . [facility] Medical History (Updated 08/03/24 @ 08:21 by Hemalatha Cano MD) Transient neurological symptoms Hypersomnia Snoring Chest pain Crescendo angina Angina pectoris Hypothyroidism Low back pain COVID-19 vaccine series completed Anxiety GERD (gastroesophageal reflux disease) Celiac disease Restless leg syndrome Surgical History Hx of bilateral cataract extraction History of esophagogastroduodenoscopy (EGD) Hx of colonoscopy Hx of foot surgery Hx of tonsillectomy Hx of appendectomy History of back surgery Family History Daughter Celiac disease Social History Household Members: Children Household Members Other:: son age 17 Housing: House Are you a primary home health care provider to a significant other at home: No Do you presently have visiting nurse or other home services: No Alcohol intake: current Alcohol intake frequency: holidays/special occasions only Patient Tobacco Use Status: Former Tobacco user Tobacco use type: Cigarette Advance Directives Date on File: 03/14/21 service: No Current occupational status: employed Current occupation: [employer] [facility] [place] referral [place]/ 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 Physical Exam Vital Signs: Last Vital Signs Pulse 82 08/03/24 07:33 BP 110/90 H 08/03/24 07:33 Pulse Ox 95 08/03/24 07:33 Oxygen Delivery Method Room Air 08/03/24 07:33 BMI result Body Mass Index 29.6 Const General: cooperative, healthy appearing, comfortable and no acute distress Nutritional Appearance: average body habitus Orientation/consciousness: patient oriented x3 Eyes Pupils: Equal, round and reactive pupils present Neuro General: patient oriented x3, gait normal, tone normal and moves all extremities Cranial nerves: Yes Equal, round and reactive pupils present, Yes Bilaterally intact EOM present, Yes Nystagmus not present, Yes Normal facial strength present, Yes Midline tongue present, Yes Symmetric palate elevation present, Yes Ability to bilaterally rotate head present and Yes Ability to bilaterally elevate shoulders present Cognition (Neuro): normal cognition Gait exam (Neuro): Normal gait present Motor exam (neuro): 5/5 motor strength present throughout and Normal motor muscle tone present throughout Deep tendon reflexes (DTR's): Right triceps reflex intensity grade: 2+, Left triceps reflex intensity grade: 2+, Rt Biceps (C5, C6): 2+, Left biceps reflex intensity grade: 2+, Right brachioradialis reflex intensity grade: 2+, Left brachioradialis reflex intensity grade: 2+, Right patellar reflex intensity grade: 2+ and Left patellar reflex intensity grade: 2+ Coordination: [id number] test normal Results Reviewed Results Reviewed: MRI MRA- 11/2023No acute intracranial process. Progressed mild scattered white matter signal changes which may be due to chronic microangiopathy. Mild generalized brain parenchymal volume loss. Normal MRA of the head. Assessment & Plan Assessment & Plan (1) Transient neurological symptoms: Comment: blurry vision , dizziness, slurred speech - likley related to infection and possible dehydration . Unlikely to be TIA Code(s): R29.818 - Other symptoms and signs involving the nervous system Category: Medical (2) Snoring: Code(s): R06.83 - Snoring Category: Medical (3) Hypersomnia: Code(s): G47.10 - Hypersomnia, unspecified Category: Medical Plan Reviewed her MRI MRA - mild white matter changes Suggested to continue aspirin 81mg qd Carotid doppler Sleep study to r/o sleep apnea. Orders: Orders RT home sleep study Today G47.10 - Hypersomnia, unspecified, R06.83 - Snoring US carotid duplex BI Today R29.818 - Other symptoms and signs involving the nervous system Coding Level of Care Code New Pt Level 4 (67816) Complex EM visit Add On G2211 Diagnoses Transient neurological symptoms R29.818 Snoring R06.83 Hypersomnia G47.10
[2024-08-03 07:33] VITALS: BP 110/90; PULSE 82; O2SAT 95; BMI 29.6
== END 2024-08-03 08:09 | disposition home or self-care (01) ==
PROVIDERS: PCP Registered Nurse; Visit Provider Psychiatry & Neurology Neurology
DX: R29.818 Other symptoms and signs involving the nervous system (principal); R06.83 Snoring; G47.10 Hypersomnia, unspecified
CPT/HCPCS: 99204

== ENCOUNTER → 2024-08-03 07:18 | Outpatient (BNVA) | payer OTHER, SELFPAY | PROVIDERS: PCP Registered Nurse; Visit Provider Psychiatry & Neurology Neurology ==

== ENCOUNTER 2024-08-07 08:02 | Outpatient (AMB) | payer OTHER, SELFPAY ==
[2024-08-07 08:08] VITALS: BP 128/80; PULSE 83; TEMP 36.7; O2SAT 97; BMI 29.6
--- NOTE | 2024-08-07 08:08 | MHC.OFFWIV ---
Intake Vital Signs 08/07/24 08:08 Height 5 ft 3 in Weight 167 lb BMI 29.6 BP 128/80 Blood Pressure Location Rt brachial Position Sitting Pulse 83 Pulse Source Pulse Oximeter Temp 98.0 F Temp Source Temporal Artery Scan Pulse Oximetry (%) 97 Oxygen Delivery Method Room Air Intake Visit Reasons: EP sore throat, glands, fatigue Intake Note: Pt presents to the office today for c/o sore throat, fatigue, swollen glands, headache x3 weeks. Patient Tobacco Use Status: Former Tobacco user Allergies gluten [Gluten] Allergy (Severe, Verified 08/07/24 08:10) Gastrointestinal Upset Penicillins Allergy (Intermediate, Verified 08/07/24 08:10) Rash Sulfa (Sulfonamide Antibiotics) Allergy (Intermediate, Verified 08/07/24 08:10) Rash Codeine Phosphate Allergy (Intermediate, Uncoded 08/07/24 08:10) Nausea HPI EP sore throat, glands, fatigue HPI Details This note is constructed using voice recognition software. While every effort has been made to ensure accuracy, salt cutter errors may have been included. The patient is a 69 year old female who presents to the clinic today with three-week history of sore throat, fatigue, sinus pressure. She denies fever, chills, cough, shortness of breath. She notes that the symptoms started with a runny nose, clear discharge, and then led to the sore throat, and then the sinus pressure. She has been taking a DayQuil/NyQuil combination. They helped some with the symptoms. She has been tested for COVID and flu both at home, and in this clinic since symptom onset, as well as strep which have all been negative. She does report that at work there are several coworkers that recently had URIs. [facility] Medical History (Updated 08/03/24 @ 08:21 by Hemalatha Cano MD) Transient neurological symptoms Hypersomnia Snoring Chest pain Crescendo angina Angina pectoris Hypothyroidism Low back pain COVID-19 vaccine series completed Anxiety GERD (gastroesophageal reflux disease) Celiac disease Restless leg syndrome Surgical History Hx of bilateral cataract extraction History of esophagogastroduodenoscopy (EGD) Hx of colonoscopy Hx of foot surgery Hx of tonsillectomy Hx of appendectomy History of back surgery Family History Daughter Celiac disease Social History Household Members: Children Household Members Other:: son age 17 Housing: House Are you a primary critical care nurse to a significant other at home: No Do you presently have visiting nurse or other home services: No Alcohol intake: current Alcohol intake frequency: holidays/special occasions only Patient Tobacco Use Status: Former Tobacco user Tobacco use type: Cigarette Advance Directives Date on File: 03/14/21 service: No Current occupational status: employed 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/ 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 Review of Systems Const All systems reviewed & are unremarkable except as noted in HPI and below Physical Exam Vital Signs: Last Vital Signs Temp 98.0 F 08/07/24 08:08 Pulse 83 08/07/24 08:08 BP 128/80 08/07/24 08:08 Pulse Ox 97 08/07/24 08:08 Oxygen Delivery Method Room Air 08/07/24 08:08 BMI result Body Mass Index 29.6 Const General: cooperative, healthy appearing, comfortable and no acute distress Orientation/consciousness: patient oriented x3 Limitations: no limitations HEENT Head: Yes normal to inspection Ears: hearing grossly normal bilaterally, external ears normal and TM's normal bilaterally General nose exam: Normal external nose present, Normal nares present and No nasal discharge present Face and sinus: Yes normal facial exam and Yes sinuses nontender Mouth: Normal oral and palatal mucosa present and moist mucous membranes Throat: Yes tonsils normal, Yes uvula midline and Yes posterior oropharynx abnormal (Erythema) Eyes General: appearance normal, both eyes and all related structures Neck Neck: Yes normal visual inspection Resp Effort & Inspection: normal respiratory effort, able to speak in complete sentences, no respiratory distress, not tachypneic, no tripod positioning and no use of accessory muscles Auscultation: clear to auscultation bilaterally Cardio Jugular venous distension: no JVD Rate: regular rate Rhythm: regular rhythm Heart sounds: S1 normal heart sound present, S2 normal heart sound present, no click, no gallops, no murmurs and no rubs Skin General skin exam: no rashes or lesions noted, elasticity normal and turgor normal Neuro General: patient oriented x3 Extrem General: Yes normal to inspection and Yes no clubbing, cyanosis or edema Assessment & Plan Assessment & Plan (1) Pharyngitis: Code(s): J02.9 - Acute pharyngitis, unspecified Qualifiers: Pharyngitis/tonsillitis etiology: unspecified etiology Qualified Code(s): J02.9 - Acute pharyngitis, unspecified Plan: In office rapid strep negative. Viral panel not obtained due to timeline since symptom onset. Discussed symptomatic management. Prednisone ordered for anti-inflammatory effects. Advised hydration, humidification. Advised follow up with worsening or failure to resolve. Likely viral in origin. Plan See above for full details and plan. Medications: New prednisone 40 mg (2 x 20 mg) PO DAILY 3 days 6 tabs 0RF Coding Level of Care Code Est Pt Level 3 (15485) Diagnoses Pharyngitis, unspecified etiology J02.9 Pharyngitis/tonsillitis etiology: unspecified etiology
== END 2024-08-07 08:43 | disposition home or self-care (01) ==
PROVIDERS: PCP Registered Nurse; Visit Provider Registered Nurse
DX: J02.9 Acute pharyngitis, unspecified (principal); Z13.9 Encounter for screening, unspecified

== ENCOUNTER → 2024-08-07 08:02 | Outpatient (BNVA) | payer OTHER, SELFPAY | PROVIDERS: PCP Registered Nurse; Visit Provider Registered Nurse | DX: J02.9 Acute pharyngitis, unspecified (principal) | CPT/HCPCS: 87880 ==

== ENCOUNTER 2024-08-09 12:46 | Outpatient (REF) | payer OTHER, SELFPAY ==
--- NOTE | ~2024-08-09 | US_ITS ---
EXAMINATION: US EXTRACRANIAL CAROTID DUPLEX, BILATERAL CLINICAL INFORMATION: Blurry vision and slurred speech COMPARISON: 05/08/2016 TECHNIQUE: Real-time ultrasound and Doppler techniques (integrating B-mode 2-D vascular images, Doppler spectral analysis and color-flow Doppler imaging) were utilized to interrogate the extracranial carotid arteries, the vertebral arteries and proximal subclavian arteries bilaterally. The degree of stenosis is determined by criteria similar to NASCET. FINDINGS: Right Side: 1. There is no atherosclerotic plaque seen in the bifurcation/proximal ICA region. 2. The common carotid artery PSV proximally is 77 cm/s and distally 89 cm/s. 3. The proximal internal carotid artery velocities are 86 cm/s systolic and 22 cm/s diastolic. 4. The proximal external carotid artery PSV is 79 cm/s. 5. The vertebral artery shows antegrade flow. 6. The subclavian artery waveforms are normal. Left Side: 1. There is no atherosclerotic plaque seen in the bifurcation/proximal ICA region. 2. The common carotid artery PSV proximally is 86 cm/s and distally 73 cm/s. 3. The proximal internal carotid artery velocities are 57 cm/s systolic and 17 cm/s diastolic. 4. The proximal external carotid artery PSV is 57 cm/s. 5. The vertebral artery shows antegrade flow. 6. The subclavian artery waveforms are normal. US/US carotid duplex BI IMPRESSION: 1. RIGHT: Normal right internal carotid artery without atherosclerotic plaque or hemodynamically significant stenosis. 2. LEFT: Normal left internal carotid artery without atherosclerotic plaque or hemodynamically significant stenosis. 3. There is no change in the category severity of disease when compared to the previous study dated 05/08/2016. Electronically signed by: Tonny Dumont MD 08/10/2024 11:25 PM [facility]
== END 2024-08-09 12:47 | disposition home or self-care (01) ==
LOC: HO.HMGCX 12:46
PROVIDERS: PCP Registered Nurse; Visit Provider Psychiatry & Neurology Neurology
DX: H53.10 Unspecified subjective visual disturbances (principal); R47.81 Slurred speech; R29.818 Other symptoms and signs involving the nervous system
CPT/HCPCS: 93880

== ENCOUNTER 2024-08-09 15:16 | Outpatient (AMB) | payer OTHER, SELFPAY ==
--- NOTE | 2024-08-09 15:18 | AM.OFFWIN_ITS ---
Intake Vital Signs 08/09/24 15:22 Weight 166 lb BP 124/82 Blood Pressure Location Lt brachial Position Sitting Pulse 66 Pulse Source Pulse Oximeter Pulse Oximetry (%) 98 Oxygen Delivery Method Room Air Intake Visit Reasons: EP lower back pain Intake Note: Patient here for lower back pain that has been present for a while but has progressed since last night. Patient Tobacco Use Status: Former Tobacco user Allergies gluten [Gluten] Allergy (Severe, Verified 08/09/24 15:22) Gastrointestinal Upset Penicillins Allergy (Intermediate, Verified 08/09/24 15:22) Rash Sulfa (Sulfonamide Antibiotics) Allergy (Intermediate, Verified 08/09/24 15:22) Rash Codeine Phosphate Allergy (Intermediate, Uncoded 08/09/24 15:22) Nausea Do you need a note to return to daycare/school/sports/work: No HPI EP lower back pain HPI Details This note is constructed using voice recognition software. While every effort has been made to ensure accuracy, asp net programmer errors may have been included. The patient is a 69 year old female who presents to the clinic today with left lower back pain for the past 2 days. She reports a history of chronic low back pain which she is following spine and sports for, after having surgery several years ago. She does not feel that this pain is the same. This pain started after she was decorating her cubicle at work, climbing up and down off of the chair. The pain is left lower back. It does not radiate down her leg. She denies loss of control of bladder or bowel. She tried lidocaine patch which did not seem to help, as well as Tylenol Arthritis. She is currently on prednisone for upper respiratory symptoms, after being seen in the clinic 2 days ago. She is currently in physical therapy, for strength training due to the chronic back pain. [facility] Medical History (Updated 08/03/24 @ 08:21 by Hemalatha Cano MD) Transient neurological symptoms Hypersomnia Snoring Chest pain Crescendo angina Angina pectoris Hypothyroidism Low back pain COVID-19 vaccine series completed Anxiety GERD (gastroesophageal reflux disease) Celiac disease Restless leg syndrome Surgical History Hx of bilateral cataract extraction History of esophagogastroduodenoscopy (EGD) Hx of colonoscopy Hx of foot surgery Hx of tonsillectomy Hx of appendectomy History of back surgery Family History Daughter Celiac disease Social History Household Members: Children Household Members Other:: son age 17 Housing: House Are you a primary director of critical care to a significant other at home: No Do you presently have visiting nurse or other home services: No Alcohol intake: current Alcohol intake frequency: holidays/special occasions only Patient Tobacco Use Status: Former Tobacco user Tobacco use type: Cigarette Advance Directives Date on File: 03/14/21 service: No Current occupational status: employed 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 Negative SLR, negative well SLR. Leg strength 5/5, equal bilaterally. Lateral rotation normal, flexion limited to pain. Distal neurovascular exam intact. No erythema, edema, ecchymosis. Skin General skin exam: no rashes or lesions noted Neuro General: patient oriented x3 Extrem General: Yes normal to inspection Assessment & Plan Assessment & Plan (1) Sacroiliac joint pain: Code(s): M53.3 - Sacrococcygeal disorders, not elsewhere classified Plan: Advised heat/ice, continue prednisone ordered for alternate reason. Discussed continuation of prednisone versus switch to NSAIDs when complete, patient elects switch to NSAIDs. Offered muscle relaxer, which patient has declined at this time. Patient is currently in physical therapy, and has an appointment scheduled for Wednesday, advised her to keep that appointment as long as she is feeling well. Advised follow up as needed with worsening or failure to resolve. Plan See above for full details and plan. Coding Level of Care Code Est Pt Level 3 (11628) Diagnoses Sacroiliac joint pain M53.3
[2024-08-09 15:22] VITALS: BP 124/82; PULSE 66; O2SAT 98
== END 2024-08-09 15:57 | disposition home or self-care (01) ==
PROVIDERS: PCP Registered Nurse; Visit Provider Registered Nurse
DX: M53.3 Sacrococcygeal disorders, not elsewhere classified (principal)

== ENCOUNTER 2024-08-17 16:42 | Outpatient (RCR) | payer OTHER, SELFPAY | END 2024-09-27 13:56 | disposition home or self-care (01) | LOC: HO.PT 16:42 | PROVIDERS: PCP Registered Nurse; Visit Provider Physician Assistant | DX: M47.896 Other spondylosis, lumbar region (principal) | CPT/HCPCS: 97110; 97140; 97162; 97530; 97535 ==

== ENCOUNTER 2024-08-26 08:44 | Outpatient (REF) | payer OTHER, SELFPAY ==
--- NOTE | ~2024-08-26 | MM_ITS ---
EXAMINATION: MM SCREENING DIGITAL BREAST TOMOSYNTHESIS, BILATERAL CLINICAL INFORMATION: Screening. Asymptomatic. COMPARISON: Mammography: Comparison is made with available priors TECHNIQUE: Digital breast mammography with tomosynthesis is performed in both the craniocaudal and mediolateral oblique views along with computer-aided detection (CAD). FINDINGS: The breasts are heterogeneously dense, which may obscure small masses (ACR BI-RADS breast composition Category c). Left: There are no significant masses, abnormal calcifications, or other abnormalities. Right: Focal asymmetry lower inner breast posterior depth. No suspicious calcifications or other abnormal findings. MM/MM tomosynthesis screening BI IMPRESSION: Additional imaging is recommended ASSESSMENT: BI-RADS BI-RADS 0 - Incomplete: Needs additional Imaging. RECOMMENDATION: 1. Additional views of the right breast. 2. Targeted ultrasound if warranted after review of the additional views. 3. Radiology department staff will contact the patient for additional imaging. Additional Imaging required This examination should not preclude the clinical evaluation of a suspicious palpable abnormality. This patient's information was entered into a reminder system with a target due date for their next mammogram. Electronically signed by: Tigist Mercedes DO 09/03/2024 05:47 PM [facility]
== END 2024-08-26 08:45 | disposition home or self-care (01) ==
LOC: HO.MAMMO 08:44
PROVIDERS: PCP Registered Nurse; Visit Provider Registered Nurse
DX: Z12.31 Encounter for screening mammogram for malignant neoplasm of breast (principal)
CPT/HCPCS: 77063; 77067

== ENCOUNTER → 2024-08-26 09:00 | Outpatient (BNV) | payer OTHER, SELFPAY | PROVIDERS: PCP Registered Nurse; Visit Provider Internal Medicine | DX: Z12.31 Encounter for screening mammogram for malignant neoplasm of breast (principal) | CPT/HCPCS: 77063; 77067 ==

== ENCOUNTER 2024-09-05 12:23 | Outpatient (AMB) | payer OTHER, SELFPAY ==
[2024-09-05 12:44] VITALS: BP 118/76; PULSE 90; TEMP 36.7; O2SAT 97; BMI 29.2
--- NOTE | 2024-09-05 12:44 | MHC.OFFWIV ---
Intake Vital Signs 09/05/24 12:44 Height 5 ft 3 in Weight 165 lb BMI 29.2 BP 118/76 Blood Pressure Location Lt brachial Position Sitting Pulse 90 Pulse Source Pulse Oximeter Temp 98.0 F Temp Source Oral Pulse Oximetry (%) 97 Oxygen Delivery Method Room Air Intake Visit Reasons: EP-lt upper back pain Intake Note: Pt is here today for walk in visit. Pt c/o upper back pain. Pt was seen yesterday and she was told she has shingles. Patient Tobacco Use Status: Former Tobacco user Allergies gluten [Gluten] Allergy (Severe, Verified 09/05/24 12:48) Gastrointestinal Upset Penicillins Allergy (Intermediate, Verified 09/05/24 12:48) Rash Sulfa (Sulfonamide Antibiotics) Allergy (Intermediate, Verified 09/05/24 12:48) Rash Codeine Phosphate Allergy (Intermediate, Uncoded 09/05/24 12:48) Nausea Do you need a note to return to daycare/school/sports/work: Yes HPI HPI Comments History of Present Illness Details This is a 69 year old female with a past medical history of hypothyroidism, gastroesophageal reflux disease and restless legs syndrome presenting for evaluation of left upper back pain that radiates to her left axilla. Patient has had back pain since Wednesday after brushing snow off of her car. Patient describes the pain as an aching sensation. Patient was seen in urgent care yesterday in [place] and was given valacyclovir for shingles. Patient states she does not have a rash but yesterday she had been wearing a lidocaine patch over the area and the provider felt that the redness on her pale skin was significant for shingles. Patient denies having any fevers, chills, cough, shortness for breath, chest pain, nausea, vomiting or abdominal pain. [facility] Medical History (Updated 09/05/24 @ 14:02 by Rona Swann PA-C) Transient neurological symptoms Hypersomnia Snoring Chest pain Crescendo angina Angina pectoris Hypothyroidism Low back pain COVID-19 vaccine series completed Anxiety GERD (gastroesophageal reflux disease) Celiac disease Restless leg syndrome Surgical History Hx of bilateral cataract extraction History of esophagogastroduodenoscopy (EGD) Hx of colonoscopy Hx of foot surgery Hx of tonsillectomy Hx of appendectomy History of back surgery Family History Daughter Celiac disease Social History Household Members: Children Household Members Other:: son age 17 Housing: House Are you a primary home care consultant to a significant other at home: No Do you presently have visiting nurse or other home services: No Alcohol intake: current Alcohol intake frequency: holidays/special occasions only Patient Tobacco Use Status: Former Tobacco user Tobacco use type: Cigarette Advance Directives Date on File: 03/14/21 service: No Current occupational status: employed Current occupation: [employer] [place]/ 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 Review of Systems Const All systems reviewed & are unremarkable except as noted in HPI and below Eyes Reports no additional complaints ENT Reports no additional complaints, Denies dizziness and Denies neck pain Card Reports no additional complaints and Denies dyspnea Resp Reports no additional complaints, Denies cough and Denies dyspnea GI Reports no additional complaints Musc Reports back pain (left upper back), Denies myalgias, Denies neck pain, Denies numbness and Denies tingling Skin/Breast Reports system reviewed and no additional complaints, except as documented Neuro Reports no additional complaints, Denies dizziness, Denies numbness and Denies tingling Endo Reports no additional complaints Alfonso/Lymph Reports no additional complaints Aller/Immun Reports no additional complaints Physical Exam Vital Signs: Last Vital Signs Temp 98.0 F 09/05/24 12:44 Pulse 90 09/05/24 12:44 BP 118/76 09/05/24 12:44 Pulse Ox 97 09/05/24 12:44 Oxygen Delivery Method Room Air 09/05/24 12:44 BMI result Body Mass Index 29.2 Const General: cooperative, healthy appearing, comfortable, no acute distress, well developed, alert, awake and Physically active Neck Neck: Yes full ROM and Yes no meningeal signs General: Yes no CVA tenderness Back/Spine/Pelvis Other: +pain to palpation of the left trapezius musculature that is exacerbated with adduction of the LUE against resistance Back: no CVA tenderness Cervical Spine: normal cervical lordosis, cervical ROM normal, No cervical muscular tenderness, No pain with cervical ROM and No Cervical spine tenderness Thoracic/Lumbar Spine: thoracic and lumbar spine normal to inspection, thoraco-lumbar ROM normal, No pain with thoraco-lumbar ROM, No thoracic spinal tenderness and No lumbar spinal tenderness Skin General skin exam: no rashes or lesions noted Lesions: no lesions Rashes: no rashes Neuro General: no meningeal signs Psych Appearance: grossly normal Mental Status: mental status grossly normal Insight: Good insight present (Psych) Judgement: Good judgement present (Psych) Assessment & Plan Assessment & Plan (1) Trapezius muscle strain: Comment: The natural history of herpes zoster is discussed with this patient, specifically how pain can precede the cutaneous findings. However, given this patient's history coupled with her examination, she will be treated for a thoracic muscular strain with anti-inflammatories and muscle relaxants. Patient is invited to return at any time if her symptoms persist or worsen. Code(s): S46.819A - Strain of other muscles, fascia and tendons at shoulder and upper arm level, unspecified arm, initial encounter Qualifiers: Encounter type: initial encounter Laterality: left Qualified Code(s): S46.812A - Strain of other muscles, fascia and tendons at shoulder and upper arm level, left arm, initial encounter Plan: Naprosyn b.i.d. times 10 days, methocarbamol t.i.d. p.r.n. Medications: New naproxen (Naprosyn) 500 mg PO BID 20 tabs 0RF methocarbamol 500 mg PO TID 20 tabs 0RF Coding Level of Care Code Est Pt Level 3 (38135) Diagnoses Strain of left trapezius muscle, initial encounter S46.812A Encounter type: initial encounter Laterality: left Time Spent (min) 20
== END 2024-09-05 13:56 | disposition home or self-care (01) ==
PROVIDERS: PCP Registered Nurse; Visit Provider Physician Assistant
DX: S46.812A Strain of other muscles, fascia and tendons at shoulder and upper arm level, left arm, initial encounter (principal)

== ENCOUNTER → 2024-09-05 12:23 | Outpatient (BNVA) | payer OTHER, SELFPAY | PROVIDERS: PCP Registered Nurse; Visit Provider Physician Assistant ==

== ENCOUNTER → 2024-09-12 14:48 | Outpatient (REF) | payer OTHER, SELFPAY | LOC: HO.SL 14:48 | PROVIDERS: PCP Registered Nurse; Visit Provider Psychiatry & Neurology Neurology | DX: G47.10 Hypersomnia, unspecified (principal); R06.83 Snoring | CPT/HCPCS: 95806 ==

== ENCOUNTER → 2024-09-12 15:06 | Outpatient (BNV) | payer OTHER, SELFPAY | PROVIDERS: PCP Registered Nurse; Visit Provider Psychiatry & Neurology Neurology | DX: R06.83 Snoring (principal); G47.10 Hypersomnia, unspecified | CPT/HCPCS: 95806 ==

== ENCOUNTER 2024-09-20 21:37 | Emergency (ER) | payer OTHER, SELFPAY ==
--- NOTE | ~2024-09-20 | CT_ITS ---
CLINICAL HISTORY: pain CT abdomen and pelvis without contrast Comparison: CT - CT ABDOMEN PELVIS W CON - 12/05/21 09:19 EDT Findings: There is mild bibasilar atelectasis. There are small stones in the gallbladder. Gallbladder appears otherwise normal. The liver, pancreas, spleen, and adrenal glands are unremarkable. There is a duplicated right renal collecting system. Left kidney is unremarkable. There is mild diverticulosis in the left hemicolon. There is no acute diverticulitis. The appendix is not visualized. There is no evidence of appendicitis. The remainder of the gastrointestinal tract is unremarkable. There is no free fluid or free air. There is a stable uterine mass consistent with a fibroid roughly measuring up to 7.2 cm in greatest axial dimension. There are no enlarged lymph nodes. The aorta is normal in diameter. Patient is status post L3-4 fusion. There is no fracture or suspicious lytic or sclerotic lesion. IMPRESSION: 1. No acute abnormality in the abdomen or pelvis. 2. Cholelithiasis. 3. Mild colonic diverticulosis. 4. Stable uterine mass consistent with a fibroid. This document has been electronically signed by: Ajay Echols MD on 09/21/2024 03:40:54
[2024-09-20 21:41] VITALS: BP 128/83; PULSE 115; RESP 16; TEMP 36.9; O2SAT 97; BMI 28.3
[2024-09-21 01:51] VITALS: BP 109/67; PULSE 88; RESP 20; TEMP 37.3; O2SAT 95
[2024-09-21] MEDS: diazePAM 10 MG/2 ML CARTRIDGE 5 MG IVPUSH ×2 (02:05→04:18)
--- NOTE | 2024-09-21 04:06 | ED.EXTPRO ---
HPI - Extremity Problem General Chief complaint: Extremity Problem Stated complaint: L hip/leg pain Time Seen by Provider: 09/21/24 01:01 Source: patient Limitations: no limitations History of Present Illness ED Provider: Susy Romero PA-C HPI Narrative: 69-year-old female with a history of chronic low back and left hip pain, , lumbar spondylosis, lumbar radiculopathy, prior laminectomy, trochanteric bursitis of the left hip, presents with low back and left hip pain. Patient states her discomfort acutely worsened today. She is having radiation of left-sided low back pain into the left groin and down anterior thigh. Patient states the pain is so severe that she can not move the left lower extremity. Denies weakness of left lower extremity, paresthesia, urinary retention or bowel incontinence. Patient denies mechanism of injury. Patient states she is pending a procedure on September 26 to have ?burning of the nerve ends in 6 regions of the lower back?. She has been advised to not use any anti-inflammatories in preparation of her procedure. Patient states she has use the muscle relaxant without relief from her symptoms. Related Data Home Medications ?Medication ?Instructions ?Recorded ?Confirmed levothyroxine 88 mcg tablet 1 tab PO DAILY 01/28/21 08/03/24 (Synthroid) lidocaine 5 % topical patch 1 patch topical DAILY PRN Pain 01/28/21 08/03/24 lorazepam 0.5 mg tablet 1 tab PO BID PRN anxiety 01/28/21 08/03/24 omeprazole 20 mg capsule,delayed 20 mg PO DAILY 03/06/21 08/03/24 release pramipexole 1 mg tablet 1 mg PO BEDTIME 03/16/22 08/03/24 ibuprofen 600 mg tablet 1 tab PO TID PRN pain 10/15/22 08/03/24 aspirin 81 mg tablet,delayed 81 mg PO DAILY 12/13/23 08/03/24 release (Adult Aspirin Regimen) Previous Rx's ?Medication ?Instructions ?Recorded methocarbamol 500 mg tablet 500 mg PO TID #20 tabs 09/05/24 naproxen 500 mg tablet (Naprosyn) 500 mg PO BID #20 tabs 09/05/24 Allergies Allergy/AdvReac Type Severity Reaction Status Date / Time gluten [Gluten] Allergy Severe Gastrointestinal Verified 09/20/24 21:44 Upset Penicillins Allergy Intermediate Rash Verified 09/20/24 21:44 Sulfa (Sulfonamide Allergy Intermediate Rash Verified 09/20/24 21:44 Antibiotics) Codeine Phosphate Allergy Intermediate Nausea Uncoded 09/20/24 21:44 Review of Systems Review of Systems: Yes all other systems are reviewed and are negative Constitutional: Constitutional: Denies fatigue and Denies fever(s) Musculoskeletal: Musculoskeletal: Reports back pain, Denies muscle weakness, Denies numbness, Reports radiating pain into limb, Reports stiffness and Denies tingling Neurologic: Denies numbness and Denies tingling Endocrine: Endocrine: Denies fatigue PMF Past Medical History Attestation statement: The following information was validated with the patient. Medical History (Updated 09/21/24 @ 04:14 by JENNIFER Amin) Transient neurological symptoms Hypersomnia Snoring Chest pain Crescendo angina Angina pectoris Hypothyroidism Low back pain COVID-19 vaccine series completed Anxiety GERD (gastroesophageal reflux disease) Celiac disease Restless leg syndrome Surgical History Hx of bilateral cataract extraction History of esophagogastroduodenoscopy (EGD) Hx of colonoscopy Hx of foot surgery Hx of tonsillectomy Hx of appendectomy History of back surgery Family History Family History Daughter Celiac disease Social History Social History Household Members: Children Household Members Other:: son age 17 Housing: House Are you a primary director of healthcare systems to a significant other at home: No Do you presently have visiting nurse or other home services: No Alcohol intake: current Alcohol intake frequency: holidays/special occasions only Patient Tobacco Use Status: Former Tobacco user Tobacco use type: Cigarette Smoked in Last 30 Days: No Use of substances other than those prescribed or required for medical reasons: No Advance Directives: Yes Advance Directives on File: Yes Advance Directives Date on File: 03/14/21 service: No Current occupational status: employed 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 Physical Exam Vital Signs: Vital Signs: Last Vital Signs Temp 99.1 F 09/21/24 01:51 Pulse 88 09/21/24 01:51 Resp 20 09/21/24 01:51 BP 109/67 09/21/24 01:51 Pulse Ox 95 09/21/24 01:51 O2 Del Method Room Air 09/21/24 01:51 BMI result Body Mass Index 28.3 Const: Other: Alert Orientation/consciousness: patient oriented x3 Resp: Effort & Inspection: normal respiratory effort Cardio: Other: Normal peripheral perfusion Skin: Other: Warm dry no rash Neuro: General: patient oriented x3, no focal motor deficits and CN's II-XI intact bilaterally Extrem: Other: Palpable pain over left lateral hip and anterior thigh, pain elicited when patient attempts to perform straight leg raise or flex and extend from the left knee Psych: Other: Cooperative Course Reevaluation(s) Reevaluation #1: Discussed there were no acute findings with the patient, I had spoken with her about case management and physical therapy earlier on during her assessment. She is now in agreement that she requires services. We will hold for case management and physical therapy, ordering a diet, ordering additional pain meds including an anti-inflammatory, the patient forsees she is going to have to delay her procedure. Screening labs were not obtained we will have to do so now Medications Administered Discontinued Medications Generic Name Dose Route Start Last Admin Trade Name Freq PRN Reason Stop Dose Admin Diazepam 5 mg 09/21/24 01:50 09/21/24 02:05 Diazepam 10 Mg/2 Ml Cartridge IVPUSH 09/21/24 01:51 5 mg STAT STA Administration Medical Decision Making Medical Decision Making [facility] Narrative: 69-year-old female with a history of chronic low back and left hip pain, , lumbar spondylosis, lumbar radiculopathy, prior laminectomy, trochanteric bursitis of the left hip, presents with low back and left hip pain. Patient states her discomfort acutely worsened today. She is having radiation of left-sided low back pain into the left groin and down anterior thigh. Patient states the pain is so severe that she can not move the left lower extremity. Denies weakness of left lower extremity, paresthesia, urinary retention or bowel incontinence. Patient denies mechanism of injury. Patient states she is pending a procedure on September 26 to have ?burning of the nerve ends in 6 regions of the lower back?. She has been advised to not use any anti-inflammatories in preparation of her procedure. Patient states she has use the muscle relaxant without relief from her symptoms. Problem: Chronic back pain History: Per patient I have considered the following differential diagnoses: New compression fracture, lumbar radiculopathy, cauda equina, Plan: Patient is having exacerbation of her known radicular symptoms. She has no red flag signs or symptoms concerning for cord compression. Going to image the hip and the back to be sure there was no acute process. Giving Valium for her discomfort. I have independently reviewed the following tests: CT abdomen and pelvis without contrast:Patient is status post L3-4 fusion. There is no fracture or suspicious lytic or sclerotic lesion. IMPRESSION: 1. No acute abnormality in the abdomen or pelvis. 2. Cholelithiasis. 3. Mild colonic diverticulosis. 4. Stable uterine mass consistent with a fibroid. This document has been electronically signed by: Ajay Echols MD on 09/21/2024 03:40:54 Discharge Plan Discharge Clinical Impression: Lumbar radiculopathy Patient Disposition: Still a Patient Prescriptions: No Action levothyroxine [Synthroid] 88 mcg tablet 1 tab PO DAILY lorazepam 0.5 mg tablet 1 tab PO BID PRN (Reason: anxiety) lidocaine 5 % adhesive patch,medicated 1 patch topical DAILY PRN (Reason: Pain) ibuprofen 600 mg tablet 1 tab PO TID PRN (Reason: pain) omeprazole 20 mg capsule,delayed release(DR/EC) 20 mg PO DAILY pramipexole 1 mg tablet 1 mg PO BEDTIME aspirin [Adult Aspirin Regimen] 81 mg tablet,delayed release (DR/EC) 81 mg PO DAILY naproxen [Naprosyn] 500 mg tablet 500 mg PO BID Qty: 20 0RF methocarbamol 500 mg tablet 500 mg PO TID Qty: 20 0RF Print Language: Italian
[2024-09-21] MEDS: Acetaminophen 325 MG TABLET 975 MG PO (04:17)
[2024-09-21] MEDS: Ketorolac Tromethamine 15 MG/ML VIAL IVPUSH ×2 (04:17→09:00)
[2024-09-21 04:51] LABS: Basophils Absolute Auto 0.1 X10*3/uL (0.0-0.2); Basophils Percent Auto 0.4 % (0-2); Eosinophils Percent Auto 0.1 % (0-4); Hematocrit 35.9 % (37.0-47.0); Hemoglobin 12.2 g/dl (12.0-16.0); Imm Gran Abs Auto 0.06 X10*3/uL (0.00-0.03); Imm Gran Pct Auto 0.4 % (0.0-0.4); Lymphocytes Absolute Auto 1.1 X10*3/uL (1.2-4.9); Lymphocytes Percent Auto 7.5 % (20-40); MANUAL DIFF FLAG NO; Mean Corpuscular Hemoglobin 29.2 pg (27.0-33.0); Mean Corpuscular Volume 85.9 fL (80.0-98.0); Mean Platelet Volume 11.1 fL (9.4-12.3); Monocytes Absolute Auto 1.2 X10*3/uL (0.1-1.2); Monocytes Percent Auto 8.4 % (2-11); Neutrophils Absolute Auto 11.7 x10*3/uL (2.0-8.3); Neutrophils Percent Auto 83.2 % (45-73); Platelet Count 309 X10*3/uL (160-400); Red Blood Count 4.18 X10*6/uL (4.20-5.50); Red Cell Distribution Width 13.8 % (11.0-16.0); White Blood Count 14.1 X10*3/uL (4.8-10.8)
[2024-09-21 05:02] LABS: Anion Gap 14 (12-20); Blood Urea Nitrogen 17 mg/dL (9-16); Calcium 9.4 mg/dL (8.4-10.2); Carbon Dioxide 20 mmol/L (22-29); Chloride 107 mmol/L (96-108); Creatinine Clr Calc Pharmacy 67.7; Estimated Glomerular Filt Rate > 60; Glucose Random 141 mg/dL (60-115); Potassium 3.9 mmol/L (3.3-5.1); Sodium 137 mmol/L (135-145)
[2024-09-21 05:40] VITALS: BP 90/55; PULSE 85; RESP 16; TEMP 36.7
[2024-09-21 05:41] VITALS: BP 90/55; PULSE 85; RESP 16; TEMP 36.7
--- NOTE | 2024-09-21 08:26 | PC.NURSE ---
Pt up oob with physical therapy, steady gait with ambulation. Per PT, pt able to go home with outpatient services and walker.
--- NOTE | 2024-09-21 08:51 | PHA.MEDREC ---
Pharmacy Consult ? Medication Reconciliation Pharmacy has completed the medication reconciliation. Spoke with patient, she was able to read her medications off a list that she carries in her purse. She did state she has recently stopped her motrin and ASA for an upcoming surgery. She also stated she was on naproxen and methocarbamol but discontinued them as they provided no pain relief.
--- NOTE | 2024-09-21 09:27 | MHC.CM.ED ---
Received case management consult from [facility]. Physical therapy eval completed. Outpatient therapy is recommended. Met with patient in regards to discharge planning. Patient lives with her 19 year old son and 16 year old granddaughter, ambulates independently and had no services prior to coming to the hospital. Patient works at [employer]. PCP verified. Patient is typically very independent. However, due to hip pain, she is currently homebound. Agreeable to referral to [facility] for physical therapy at home until outpatient physical therapy can be arranged. Patient will call her son to transport her home. Maggie RODRIGUEZ aware. Continue to monitor for d/c needs.
[2024-09-21 10:59] VITALS: BP 100/86; PULSE 76; RESP 18; TEMP 36.7; O2SAT 96
[2024-09-21 11:00] VITALS: BP 100/86; PULSE 76; RESP 18; TEMP 36.7; O2SAT 98
== END 2024-09-21 11:01 | disposition home or self-care (01) ==
PROVIDERS: Physician Assistant Medical; Emergency Provider Emergency Medicine; PCP Registered Nurse
DX: M54.16 Radiculopathy, lumbar region (principal); M54.42 Lumbago with sciatica, left side; Z87.891 Personal history of nicotine dependence
CPT/HCPCS: 36415; 74176; 80048; 85025; 96374; 96375; 96376; 97161; 99284; J1885; J3360

== ENCOUNTER → 2024-09-21 01:51 | Outpatient (BNV) | payer OTHER, SELFPAY | PROVIDERS: Emergency Provider Emergency Medicine; PCP Registered Nurse; Visit Provider Radiology Diagnostic Radiology | DX: R10.9 Unspecified abdominal pain (principal) | CPT/HCPCS: 74176 ==

== ENCOUNTER 2024-09-28 11:08 | Outpatient (REF) | payer OTHER, SELFPAY ==
--- NOTE | ~2024-09-28 | MM_ITS ---
EXAMINATION: MM DIAGNOSTIC DIGITAL BREAST TOMOSYNTHESIS, RIGHT Limited right breast ultrasound CLINICAL INFORMATION: Call back from screening for focal asymmetry in the right breast. COMPARISON: Mammography: Comparison is made with available prior examinations. TECHNIQUE: Digital breast tomosynthesis is performed in both the craniocaudal and mediolateral oblique views along with computer-aided detection (CAD). Synthesized 2D images are generated from the tomosynthesis. Limited right breast ultrasound. FINDINGS: The breasts are heterogeneously dense, which may obscure small masses (ACR BI-RADS breast composition Category c). Bilobed oval mass in the central inner breast posterior depth persists. No suspicious calcifications or other abnormal findings. Targeted color Doppler ultrasound demonstrates a simple bilobed cyst at 2:00 7 cm from the nipple measuring 11 x 7 x 6 mm. MM/MM tomosynthesis added views R IMPRESSION: Benign simple cyst in the right breast at 2:00 on ultrasound. ASSESSMENT: BI-RADS BI-RADS 2 - Benign Findings RECOMMENDATION: 1 year F/U Results were provided to the patient at time of visit by the technologist. This patient's information was entered into a reminder system with a target due date for their next mammogram. Electronically signed by: Tigist Mercedes DO 09/28/2024 12:09 PM [facility]
== END 2024-09-28 11:09 | disposition home or self-care (01) ==
LOC: HO.MAMMO 11:08
PROVIDERS: PCP Registered Nurse; Visit Provider Registered Nurse
DX: R92.8 Other abnormal and inconclusive findings on diagnostic imaging of breast (principal)
CPT/HCPCS: 76642; 77061; 77065

== ENCOUNTER → 2024-09-28 11:30 | Outpatient (BNV) | payer OTHER, SELFPAY | PROVIDERS: PCP Registered Nurse; Visit Provider Internal Medicine | DX: N60.01 Solitary cyst of right breast (principal) | CPT/HCPCS: 76642; 77061; 77065 ==

== ENCOUNTER → 2024-10-27 19:30 | Outpatient (REF) | payer OTHER, SELFPAY | LOC: HO.SL 19:30 | PROVIDERS: PCP Registered Nurse; Visit Provider Psychiatry & Neurology Neurology | DX: Z13.89 Encounter for screening for other disorder (principal) ==

== ENCOUNTER → 2024-10-27 20:43 | Outpatient (BNV) | payer OTHER, SELFPAY | PROVIDERS: PCP Registered Nurse; Visit Provider Psychiatry & Neurology Neurology | DX: R06.83 Snoring (principal); G47.10 Hypersomnia, unspecified | CPT/HCPCS: 95810 ==

== ENCOUNTER 2025-01-13 08:33 | Outpatient (REF) | payer OTHER, SELFPAY ==
[2025-01-13 09:42] LABS: Alanine Aminotransferase 23 U/L (0-31); Albumin Level 4.4 g/dL (3.5-5.0); Alkaline Phosphatase 101 U/L (39-117); Anion Gap 12 (12-20); Aspartate Amino Transferase 28 U/L (5-31); Bilirubin Total 0.3 mg/dL (0.0-1.0); Blood Urea Nitrogen 15 mg/dL (9-16); Calcium 9.7 mg/dL (8.4-10.2); Carbon Dioxide 25 mmol/L (22-29); Chloride 109 mmol/L (96-108); Cholesterol 224 mg/dL (<200); Estimated Glomerular Filt Rate > 60; Glucose Fasting 96 mg/dL (60-99); Glucose Random 95 mg/dL (60-115); HDL Cholesterol 44 mg/dL (>40); LDL Cholesterol Calculated 140 mg/dL (<100); Potassium 4.1 mmol/L (3.3-5.1); Sodium 142 mmol/L (135-145); Total Protein 6.8 g/dL (6.5-8.0); Triglycerides 203 mg/dL (<150)
[2025-01-13 09:57] LABS: TSH reflex Free T4 0.61 uIU/mL (0.32-4.0)
[2025-01-13 10:03] LABS: Vitamin B12 437 pg/mL (200-900)
[2025-01-18 11:38] LABS: Vitamin D 25-OH, D2 7 ng/mL; Vitamin D 25-OH, D3 30 ng/mL; Vitamin D 25-OH, Total 37 ng/mL (30-100)
== END 2025-01-13 08:34 | disposition home or self-care (01) ==
LOC: HO.LAB 08:33
PROVIDERS: Absent Provider Registered Nurse; PCP Physician Assistant Surgical; Visit Provider Physician Assistant Surgical
DX: Z00.00 Encounter for general adult medical examination without abnormal findings (principal); E78.2 Mixed hyperlipidemia
CPT/HCPCS: 36415; 80053; 80061; 82306; 82607; 84443

== ENCOUNTER 2025-01-31 15:52 | Outpatient (RCR) | payer OTHER, SELFPAY | END 2025-01-31 18:12 | disposition home or self-care (01) | LOC: HO.PT 15:52 | PROVIDERS: PCP Physician Assistant Surgical; Visit Provider Registered Nurse | DX: M54.42 Lumbago with sciatica, left side (principal); G89.29 Other chronic pain | CPT/HCPCS: 97110; 97112; 97140; 97162 ==

== ENCOUNTER 2025-02-01 07:46 | Outpatient (AMB) | payer OTHER, SELFPAY ==
--- NOTE | 2025-02-01 07:49 | A.OFFVIS_ITS ---
Vital Signs 02/01/25 07:50 Weight 167 lb 8 oz BP 110/72 Blood Pressure Location Rt brachial Position Sitting Intake Visit Reasons: 6 mnts f/u appt Intake Note: Patient presents follow up Neuro/Sleep. US/PSG in chart(AHI <1, GONZALEZ-82%. No evidence of sleep apnea or sleep related movement disorder) Allergies gluten [Gluten] Allergy (Severe, Verified 02/01/25 07:52) Gastrointestinal Upset Penicillins Allergy (Intermediate, Verified 02/01/25 07:52) Rash Sulfa (Sulfonamide Antibiotics) Allergy (Intermediate, Verified 02/01/25 07:52) Rash Codeine Phosphate Allergy (Intermediate, Uncoded 02/01/25 07:52) Nausea HPI Comments Details: 69y/o female comes for neurological evaluation. MRI is reviewed with patient, white matter changes with parenchymal volume loss. PSG AHI was <1 and Oxygen was 82%. In November 2023 she had cortisone shot to her right shoulder and after the appointment she started having blurry vision ( in her car) and felt foggy. she called the ortho office where she got the shot. They asked her to go to ER but she sat in the car until her vision improved in 30 min and went home. when she was on the phone she felt her speech was slurred and had dizziness. she went home , rested and went to work the next day. She had headaches on and off the whole day. she was still feeling foggy and dizzy, off balance she went to the ER after 3 days. she was found to have pyelonephritis. she was treated with antibiotics. She denies headaches. She denies mood changes. Her memory is stable, occasionally will forget normal things. She has chronic back pain and restless legs syndrome symptoms with numbness, tingling, burning bilaterally and it keeps her up at night, she often stretches her feet, paces the floor, will walk around to calm her feet. She reports excessive daytime fatigue, has anxiety related to her family issues. She takes Melatonin 3-6mg and this can be helpful. [facility] Medical History Transient neurological symptoms Hypersomnia Snoring Chest pain Crescendo angina Angina pectoris Hypothyroidism Low back pain COVID-19 vaccine series completed Anxiety GERD (gastroesophageal reflux disease) Celiac disease Restless leg syndrome Surgical History Hx of bilateral cataract extraction History of esophagogastroduodenoscopy (EGD) Hx of colonoscopy Hx of foot surgery Hx of tonsillectomy Hx of appendectomy History of back surgery Family History Daughter Celiac disease Social History Household Members: Children Household Members Other:: son age 17 Housing: House Are you a primary skin care consultant to a significant other at home: No Do you presently have visiting nurse or other home services: No Alcohol intake: current Alcohol intake frequency: holidays/special occasions only Patient Tobacco Use Status: Former Tobacco user Tobacco use type: Cigarette Advance Directives Date on File: 03/14/21 service: No Current occupational status: employed 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/ 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 Physical Exam Vital Signs: Last Vital Signs BP 110/72 02/01/25 07:50 Const General: cooperative, comfortable and no acute distress Nutritional Appearance: average body habitus Orientation/consciousness: patient oriented x3 HEENT Face and sinus: Yes face symmetric Eyes Pupils: Equal, round and reactive pupils present Resp Effort & Inspection: normal respiratory effort and able to speak in complete sentences Neuro General: patient oriented x3, gait normal, tone normal and moves all extremities Cranial nerves: Yes Equal, round and reactive pupils present, Yes Bilaterally intact EOM present, Yes Nystagmus not present, Yes Normal facial strength present, Yes Midline tongue present, Yes Symmetric palate elevation present, Yes Ability to bilaterally rotate head present and Yes Ability to bilaterally elevate shoulders present Cognition (Neuro): normal cognition Gait exam (Neuro): Normal gait present Motor exam (neuro): 5/5 motor strength present throughout and Normal motor muscle tone present throughout Deep tendon reflexes (DTR's): Right triceps reflex intensity grade: 2+, Left triceps reflex intensity grade: 2+, Rt Biceps (C5, C6): 2+, Left biceps reflex intensity grade: 2+, Right brachioradialis reflex intensity grade: 2+, Left brachioradialis reflex intensity grade: 2+, Right patellar reflex intensity grade: 2+, Left patellar reflex intensity grade: 2+, Right ankle reflex intensity grade: 2+ and Left ankle reflex intensity grade: 2+ Coordination: [id number] test normal Psych Appearance: grossly normal Affect: normal affect Orientation What is the (year) (season) (date) (day) (month)?: year, season, date, day and month Where are we (state) (county) (town or city) (hospital) (floor)?: state, county, town or city, hospital/clinic and floor Registration Name of 3 unrelated objects clearly and slowly, then ask patient to repeat all 3 of them. (1st repeat determines score. Make sure they can repeat all three): object 1, object 2 and object 3 Attention & Calculation (CHOOSE ONE) Spell WORLD backwards (DLROW): 5 letters Recall Ask patient to repeat the 3 items from question #3.: object 1, object 2 and object 3 Language Show patient a wristwatch & ask what it is. Repeat for pencil.: watch and pencil Ask the patient to repeat the phrase 'No ifs, ands, or buts' after you.: correct Ask the patient to 'take a piece of paper with their right hand' 'fold paper in half' 'place paper on floor': take paper in right hand, fold paper in half and place paper on floor Print the sentence 'CLOSE YOUR EYES' on a piece. If patient actually closes eyes then score.: followed written direction Give patient a blank piece of paper & ask to write a sentence. Score if it contains a noun & verb.: sentence contains subject and verb Ask patient to copy figure of intersecting pentagons exactly. Score if all 10 angles & 2 intersects are included.: all 10 angles present & 2 are intersected Score Score: 30 Results Reviewed Results Reviewed: MRI - 11/2023 MR/MR head/brain wo con IMPRESSION: No acute intracranial process. Progressed mild scattered white matter signal changes which may be due to chronic microangiopathy. Mild generalized brain parenchymal volume loss. Normal MRA of the head. Assessment & Plan Assessment & Plan (1) Transient neurological symptoms: Comment: blurry vision , dizziness, slurred speech - likley related to infection and possible dehydration . Unlikely to be TIA Code(s): R29.818 - Other symptoms and signs involving the nervous system Category: Medical (2) Snoring: Code(s): R06.83 - Snoring Category: Medical (3) Loud snoring: Code(s): R06.83 - Snoring Category: Medical Plan PSG reviewed with patient no evidence of AYESHA will refer to Sleep Dentistry for evaluation for oral appliance as she continues to snore and has fragmented sleep and her HR is 103. Reviewed her MRI MRA 11/2023 - mild white matter changes. MMSE is 30 today will monitor for changes. continute to socialize with friends, stay active, engage in new learning opportunities, continue with word searches and puzzles, and walking daily. Patient Education re: small vessel vascular disease and changes in plaques, continue aspirin 81mg qd and statin Lumbar pain With sciatica continue PT as toleralbe. Continue Magnesium 400mg PO and B6 200mg po at night for nerve pain, with melatonin 3-6mg po at bedtimeotc. Patient Instructions: Sleep Hygiene provided: set a scheduled bedtime and wake time to help regulate the circadian rhythm and balance the release of pituitary hormones. Sleep in a dark room, temperatures below 68 degrees, and no devices n bed. Limit caffeinated products 6 hours prior to bed, and limit fluids 2-4 hours prior to bed. Gentle night yoga, diffusing essential oils, and playing soft music can be relaxing. Will consider MRI in the future to compare with old MRI. Coding Level of Care Code Est Pt Level 4 (57572) Diagnoses Transient neurological symptoms R29.818 Snoring R06.83 Loud snoring R06.83 Time Spent (min) 20 Comment Improving
[2025-02-01 07:50] VITALS: BP 110/72
== END 2025-02-01 08:52 | disposition home or self-care (01) ==
LOC: HO.HSMS 07:46
PROVIDERS: PCP Registered Nurse; Visit Provider Physician Assistant Medical
DX: R29.818 Other symptoms and signs involving the nervous system (principal); R06.83 Snoring
CPT/HCPCS: 99214

== ENCOUNTER 2025-03-09 09:39 | Outpatient (AMB) | payer OTHER, SELFPAY ==
--- OUTSIDE RECORDS SUMMARY | 2025-03-09 09:46 | XMS_ITS | Clinical Summary ---
Author Organization [facility] Address [address] [place] [phone] Phone Care Team Providers Care Airline Reservation Agent Name Role Phone Miguel Juan PA-C Primary Care Provider [phone] Allergies Active Allergy Reactions Criticality Noted Date Comments Codeine Nausea and/or Vomiting 12/21/2017 Gluten Other (See Comments) 12/21/2017 Celiac: gets very sick per patient Oxycodone-Acetaminophen 07/04/2021 Penicillins Rash Low 12/21/2017 Sulfa (Sulfonamide Antibiotics) Rash Low 12/21/2017 Medications ergocalciferol (DRISDOL) 50,000 unit capsule Take 1 capsule (50,000 Units total) by mouth once a week. 12 capsule 4 Active levothyroxine (SYNTHROID, LEVOTHROID) 75 MCG tabletIndications:A cquired hypothyroidism TAKE 1 TABLET (75 MCG TOTAL) BY MOUTH EVERY MORNING. 30 tablet 11 4 Active cyclobenzaprine (FLEXERIL) 10 MG tablet Take 1 tablet (10 mg total) by mouth 3 (three) times a day as needed (muscle spasm). 21 tablet 5 Active pramipexole (MIRAPEX) 1 MG tablet TAKE 1 TABLET (1 MG TOTAL) BY MOUTH NIGHTLY AT BEDTIME. 90 tablet 2 5 Active omeprazole (PRILOSEC) 20 MG capsuleIndications: Gastroesophageal reflux disease without esophagitis Take 1 capsule (20 mg total) by mouth 2 (two) times a day. 180 capsule 3 5 Active ibuprofen (ADVIL,MOTRIN) 600 MG tabletIndications:C hronic low back pain with left-sided sciatica TAKE ONE (1) TABLET BY MOUTH THREE (3) TIMES DAILY NEEDED FOR PAIN 60 tablet 1 5 Active LORazepam (ATIVAN) 0.5 MG tabletIndications:G eneralized anxiety disorder TAKE 1 TABLET (0.5 MG TOTAL) BY MOUTH 2 (TWO) TIMES A DAY NEEDED FOR ANXIETY. 14 tablet 5 Active atorvastatin (LIPITOR) 10 MG tablet Take 1 tablet (10 mg total) by mouth daily. 90 tablet 3 5 Active lidocaine (LIDODERM) 5 %Indications:Chroni c bilateral low back pain with left-sided sciatica Place 1 patch onto the skin 2 (two) times a day as needed (M54.42, G89.29). Remove & Discard patch within 12 hours or as directed by MD 30 patch 5 Active Active Problems Problem Noted Date Diagnosed Date Bilateral impacted cerumen 01/25/2025 Assessment & Plan (01/25/2025 8:22 AM EDT): Patient with bilateral cerumen impaction. Ear lavage completed with success in the office today. Routine general medical exam ination at a health care facility 10/25/2024 Assessment & Plan (01/25/2025 8:11 AM EDT): Patient underwent laboratory data done at [facility]. Her labs were discussed during her office visit. She is up-to-date on her colonoscopy, mammogram and Pap smear will be completed this coming fall at [facility]. Annual physical 1 year Migraine without aura and wi thout status migrainosus, not intractable 10/25/2024 Assessment & Plan (01/25/2025 8:08 AM EDT): Patient has a history of migraines who uses ibuprofen as needed for pain. This will be continued for Gastroesophageal reflux disease without esophagi tis 10/25/2024 Assessment & Plan (01/25/2025 8:09 AM EDT): Well-controlled on omeprazole 20 mg p.o. twice daily Anxiety 10/25/2024 Assessment & Plan (01/25/2025 8:10 AM EDT): Her anxiety is well-controlled with lorazepam 0.5 mg p.o. twice daily as needed. We have completed a controlled substance agreement during this office visit. [employer] has been verified. We will continue current dose. Celiac disease 10/25/2024 Restless leg syndrome 10/25/2024 Assessment & Plan (01/25/2025 8:08 AM EDT): Patient doing well on Mirapex 1 mg nightly. This will be continued Jaw pain 04/14/2024 Assessment & Plan (04/14/2024 9:42 AM EDT): Continue follow-up with oral surgery as scheduled. Appointment tomorrow at 8 AM to discuss imaging results and further management White matter abnormality on MRI of brain 024 Assessment & Plan (01/03/2024 10:53 AM EDT): MRI/MRA performed on 12/17 showed nonspecific scattered white matter signal changes that have mildly progressed. Discussed continued follow up with neurology and referral placed to [facility] per patient request Urine frequency 12/14/2023 Assessment & Plan (12/14/2023 9:47 AM EDT): With recent ER visit diagnosed with pyelonephritis. She received 1 dose of IV antibiotic while in the emergency department and changed over to oral antibiotics. She completed the course on Wednesday. Complains of urgency and frequency still therefore a urinalysis was obtained in the clinic which revealed negative for nitrates and leukocyte esterase. I explained to the patient that this is common to have residual of urgency and frequency after pyelonephritis however if her symptoms worsen to return back to the clinic. Chronic low back pain with left-sided sciatica 0 04/13/2023 Assessment & Plan (01/25/2025 8:09 AM EDT): Patient follows closely with [facility] and has undergone cortisone injections. Patient currently on P MLA and is looking for an extension and has reached out to Dr. Waters to discuss this. Patient mentions that she is currently undergoing physical therapy however this has not provided much relief. She will be continued on ibuprofen and lidocaine patches. She is advised to use heat and gentle stretching. Assessment & Plan (10/06/2024 9:03 AM EST): -Continue follow up with [facility] as scheduled including upcoming appointment for injection on 10/18 -Referral has been previously placed to physical therapy for continuation of care from previous [facility] therapy work -Continue ibuprofen, lidocaine patches and heat for pain management in addition to activity modification and gentle stretching Assessment & Plan (04/14/2024 9:44 AM EDT): Continue follow-up with [facility] as she notes that she prefers their office over [facility]. Does note that previous injections were helpful for recent travel to [place]. Hypothyroidism 12/21/2017 Assessment & Plan (01/25/2025 8:08 AM EDT): Patient with a history of hypothyroidism who is well-controlled on levothyroxine 75 mcg daily. Her most recent TSH level is 0.61. We will continue her on this current dose. Cervicalgia 12/21/2017 Mixed hyperlipidemia 12/21/2017 Assessment & Plan (01/25/2025 8:08 AM EDT): Patient noted to have an elevated triglyceride level of 203 and LDL of 140. These are continued to be elevated despite her making dietary changes. We have discussed the side effects of statins. Patient is agreeable to start atorvastatin 10 mg p.o. daily. This will be called into her pharmacy. We will repeat a lipid panel in 3 months with a follow-up. Assessment & Plan (04/14/2024 9:42 AM EDT): Patient encouraged to continue dietary modifications as she was able to significantly lower both LDL and total cholesterol. She really prefers not having to take lipid-lowering medication at this time. We discussed close monitoring every 6 months and she feels comfortable with this plan. The 10-year ASCVD risk score (Bean MCFADDEN, et al., 2019) is: 4.7% Values used to calculate the score: Age: 69 years Sex: Female Is Non- : No Diabetic: No Tobacco smoker: No Systolic Blood Pressure: 103 mmHg Is BP treated: No HDL Cholesterol: 49 mg/dL Total Cholesterol: 194 mg/dL Resolved Problems Problem Noted Date Diagnosed Date Resolved Date Pure hypercholesterolemia 01/03/2024 Assessment & Plan (01/03/2024 10:55 AM EDT): Discussed lifestyle modifications including diet and exercise. Lipid panel as ordered to be completed prior to follow up scheduled in 3 months Leukocytosis 12/31/2023 01/25/2025 Assessment & Plan (12/31/2023 1:21 PM EDT): Her WBCs on her last CBC 12/16 was 18.7. She is no longer symptomatic for the pyelonephritis, we will repeat a CBC to evaluate for leukocytosis. Transient cerebral ischemia 12/14/2023 10/25/2024 Assessment & Plan (12/14/2023 9:48 AM EDT): Prior TIAs in the past and had been on baby aspirin up until 2 years ago when she discontinued. She was seen in the emergency department for chief complaint of dizziness and weakness with a normal head CT. Given her past medical history concern is for a history of a TIA. -I will order an MRI/MRA for further evaluation -Echocardiogram -Labs to include CBC, CMP, ESR, CRP, TSH, vitamin B12, iron, hemoglobin A1c, and lipid panel -Neuro referral -Patient was advised to go to the ER if she develops dizziness, gait instability, weakness of her upper or lower extremities, facial droop, or slurred speech. Multilevel foraminal stenosis 10/20/2023 12/14/2023 Low vitamin B12 level 10/20/20232023 Excess skin of neck 04/13/2023 12/14/19 24 Intramural leiomyoma of uterus 07/16/2021 12/14/2023 Optic neuropathy, left 03/21/201812/13 Generalized anxiety disorder 03/03/2018 12/14/2023 Vitamin D deficiency 01/10/2018 024 Celiac disease 12/21/2017 12/14/2023 Cervical facet joint syndrome 12/21/2017 12/14/2023 Cervical radicular pain 12/21/201711/22 Chronic nonintractable headache 12/21/2017 12/14/2023 Gastroesophageal reflux dise ase without esophagitis 12/21/2017 12/14/2023 Post menopausal syndrome 12/21/2017 Restless leg syndrome 12/21/20172017 Restless legs syndrome 12/21/201712/13 Thyroid nodule 12/21/2017 12/14/2023 Vertigo 12/21/2017 07/16/2021 Osteopenia 12/21/2017 12/14/2023 Encounters Date Type Department Care Team Description 01/25/2025 7:20 AM EDT Office Visit [facility] Internal [facility] [address] [place] [address] Miguel Juan PA-C Routine general medical examination at a health care facility (Primary Dx); Mixed hyperlipidemia; Acquired hypothyroidism; Restless leg syndrome; Migraine without aura and without status migrainosus, not intractable; Chronic bilateral low back pain with left-sided sciatica; Gastroesophageal reflux disease without esophagitis; Anxiety; Bilateral impacted cerumen 01/25/2025 Documentation [facility] [address] [place] [address] Miguel Juan PA-C 01/19/2025 Orders Only [facility] [address] [place] [address] Ami Hoffman FNP Deficiency of other specified B group vitamins; Vitamin D deficiency, unspecified 01/19/2025 Orders Only [facility] [address] [place] [address] Miguel Juan PA-C Routine general medical examination at a health care facility; Mixed hyperlipidemia 01/16/2025 Orders Only [facility] [address] [place] [address] Provider, MD Kristian 01/03/20[facility] [address] [facility] [place] [address] Miguel Juan PA-C Medication Refill 01/01/2025 [facility] [address] [facility] [place] [address] Miguel Juan PA-C Medication Refill from Last 3 Months Immunizations Immunization Administration Dates Next Due COVID-19 (Pre-06/14) Pfizer Vaccine, mRNA, PF 09/20/2020,08/30/2020 Influenza High-Dose Quadriva lent Preservative Free IM 10/20/2023 Influenza High-Dose Trivalen t Preservative Free IM 06/29/2024 Influenza Quadrivalent Prese rvative Free IM 06/15/2022,06/17/2021,06/20/2020,2018,06/10/2018 Influenza Trivalent Preserva tive Free IM 06/17/2016 Influenza Trivalent w/ Prese rvative IM 06/27/2014,05/24/2012 Influenza trivalent preserva tive free intradermal 05/04/2013 Influenza, Unspecified Formulation 05/23/2018 Pneumococcal conjugate PCV20 09/18/2022 Tdap 03/16/2020 Zoster recombinant 01/04/2023,08/19/2022 Family History Medical History Relation Comments No Known Problems Brother Celiac disease Daughter CV disease Father quad bypass Atrial fibrillation Mother Dementia Mother CV disease Sibling Celiac disease Sister No Known Problems Son Relation Status Comments Brother Alive Daughter Father Mother Sibling Sister Alive Son Alive Social History Tobacco Use Types Packs/Day Years Used Date Smoking Tobacco: Former Cigarettes 0.3 21.6 1 980 - 03/23/2001 Passive Smoke Exposure: Never Smokeless Tobacco: Never Tobacco Cessation:Counseling Given: Not Answered Comments:quit 15-16 yrs ago Alcohol Use Standard [...] your housing situation today? I have reynaldo sing 01/22/2025 How many times have you move [...] Orientation Straight 09/18/2022 9: 05 AM EST Last Filed Vital Signs Vital Sign Reading Time Taken Comments Blood Pressure 110/62 01/25/2025 7:26 AM EDT Pulse 67 01/25/2025 7:26 AM EDT Temperature 36.9 C (98.4 F) 09/04/2024 5:13 PM EST Respiratory Rate 20 01/25/2025 7:26 AM EDT Oxygen Saturation 97% 01/25/2025 7:26 AM EDT Inhaled Oxygen Concentration - - Weight 76.8 kg (169 lb 6.4 oz) 01/25/2025 7:26 A M EDT Height 160 cm (5' 2.99 ) 01/25/2025 7:26 AM EDT Body Mass Index 30.02 01/25/2025 7:26 AM EDT Plan of Treatment Upcoming Encounters Date Type Department Care Team (Late st Contact Info) Description 05/03/2025 8:00 AM EDT Office Visit [facility] Internal Medicine [address] [place] [address] Miguel Juan PA-C [address] [place] [address] Health Maintenance Due Date Last Done Comments COLOGUARD 2002 FIT TEST 2002 FOBT 2002 SIGMOIDOSCOPY 2002 VIRTUAL COLONOSCOPY 2002 RSV VACCINE (1 - Risk 60-74 years 1-dose series) 2017 COVID-19 VACCINE ( season) 2024 09/20/2020, 08/30/2020 TSH LEVEL 01/13/2026 01/13/2025, 12/22, 12/31/2023, Additional history exists DEPRESSION SCREENING 01/22/2026 01/22/2025 MAMMOGRAM 08/26/2026 08/26/2024, 07/24, 09/18/2022, Additional history exists SCREENING FOR DIABETES 01/14/2028 , 08/19/2023, 01/08/2022, Additional history exists LIPID PANEL 01/13/2030 01/13/2025, 12/22, 01/13/2025, Additional history exists Adult Td,Tdap Booster 03/16/2030 03/16/2020 COLONOSCOPY 06/20/2031 06/20/2021, 06/20/2021 COLORECTAL CANCER SCREENING 06/20/2031 HEPATITIS C SCREENING Completed 01/09/2022, 022 PNEUMOCOCCAL VACCINES (50+ years) Completed 09/18/2022 ZOSTER VACCINES Completed 01/04/2023, 08/19/2022 OSTEOPOROSIS SCREENING INITIAL (ONE-TIME) Completed 08/19/2023 SMOKING STATUS SCREENING (Once After 26 Yrs) Completed 01/25/2025 HEPATITIS A VACCINES Aged Out No long er eligible based on patient's age to complete this topic HIB VACCINES Aged Out No longer eligi ble based on patient's age to complete this topic MENINGOCOCCAL VACCINES (ACWY) Aged Out No longer eligible based on patient's age to complete this topic MENINGOCOCCAL VACCINES (B) Aged Out N o longer eligible based on patient's age to complete this topic Medical Devices Not on file Procedures Procedure Name Priority Date/Time Associated Diagnosis Comments 25-OH VITAMIN D Routine 01/19/2025 11:34 AM EDT Vitamin D deficiency, unspecified OUTSIDE LAB Routine 01/13/2025 1:26 PM EDT OUTSIDE LAB Routine 01/13/2025 11:48 AM EDT OUTSIDE LAB Routine 01/13/2025 10:09 AM EDT VITAMIN B12 Routine 01/13/2025 12:10 AM EDT Deficiency of other specified B group vitamins OUTSIDE POTASSIUM LEVEL Routine 01/13/2025 OUTSIDE LDL Routine 01/13/2025 OUTSIDE TSH LEVEL Routine 01/13/2025 OUTSIDE ALT LEVEL Routine 01/13/2025 OUTSIDE TOTAL CHOLESTEROL Routine 01/13/2025 OUTSIDE GLUCOSE FASTING Routine 01/13/2025 OUTSIDE HDL Routine 01/13/2025 OUTSIDE SERUM CREATININE LEVEL Routine 01/13/2025 OUTSIDE TRIGLYCERIDES Routine 01/13/2025 TSH WITH REFLEX Routine 01/11/2025 12:11 AM EDT Routine general medical examination at a health care facility LIPID PANEL Routine 01/11/2025 12:11 AM EDT Mixed hyperlipidemia COMPREHENSIVE METABOLIC PANEL Routine 01/11/2025 12:11 AM EDT Routine general medical examination at a health care facility GLUCOSE, FASTING Routine 01/11/2025 12:1 1 AM EDT Routine general medical examination at a health care facility HM MAMMOGRAPHY Routine 08/26/2024 10:07 AM EST BD DXA SCREENING Routine 08/19/2023 10:2 7 AM EST Osteopenia, unspecified location HEPATITIS C ANTIBODY, QUALITATIVE Routine 01/09/2022 3:00 PM EDT Encounter for screening for HIV COLONOSCOPY FOR RESULT ENTRY ONLY Routine 06/20/2021 from Last 3 Months or Most Recently Relevant to Health Maintenance Results * 25-OH vitamin D (01/19/2025 11:34 AM EDT) Blood us Ami Hoffman MORTGAGE LOAN COMPUTATION CLERK LAB BLOOD ORDERABLES Final Result [facility] [address] [place] [address] * Outside Lab (01/13/2025 1:26 PM EDT) Only the most recent of3 resultswithin the time period is included. us Historical Provider LAB BLOOD ORDERABLES Loren l Result * Vitamin B12 (01/13/2025 12:10 AM EDT) Blood Result [facility] Ami Hoffman MORTGAGE LOAN COMPUTATION CLERK LAB BLOOD ORDERABLES Final Result [address] [address] * (ABNORMAL) Outside Triglycerides (01/13/2025) Triglycerides - External 203(A) 35 - 150 mg/dL Result [facility] MD LAB BLOOD ORDERABLES Loren l Result * Outside TSH Level (01/13/2025) TSH - External 0.61 0.5 - 5 uIU/L Result [facility] MD LAB BLOOD ORDERABLES Loren l Result * Outside Potassium Level (01/13/2025) Potassium level - External 4.1 3.4 - 5.0 mmol/L Result [facility] MD LAB BLOOD ORDERABLES Loren l Result * Outside LDL (01/13/2025) LDL - External 140 50 - 250 mg/dL Result [facility] MD LAB BLOOD ORDERABLES Loren l Result * Outside Glucose,Fasting (01/13/2025) Glucose, fasting - External 96 65 - 99 mg/dL Result [facility] MD LAB BLOOD ORDERABLES Loren l Result * Outside Serum Creatinine Level (01/13/2025) Creatinine, serum - External 0.82 0.8 - 1.3 mg/dL Result [facility] MD LAB BLOOD ORDERABLES Loren l Result * Outside ALT Level (01/13/2025) ALT - External 23 5 - 30 U/L Result [facility] MD LAB BLOOD ORDERABLES Loren l Result * (ABNORMAL) Outside Total Cholesterol (01/13/2025) Cholesterol, total - External 225(A) <=200 mg/dL Result [facility] Historical Provider MD LAB BLOOD ORDERABLES Loren l Result * Outside HDL (01/13/2025) Pathologist [facility] HDL - External 44 40 - 80 mg/dL Result [facility] Historical Provider MD LAB BLOOD ORDERABLES Loren l Result * TSH with reflex (01/11/2025 12:11 AM EDT) Blood Miguel RODRIGUEZ-C LAB BLOOD ORDERABLES Final Re sult Performing Organization Address [facility] Co de Phone Number [address] [address] * Lipid panel (01/11/2025 12:11 AM EDT) Blood Miguel RODRIGUEZ-C LAB BLOOD ORDERABLES Final Re sult Performing Organization Address [facility] Co de Phone Number [address] [address] * Comprehensive metabolic panel (01/11/2025 12:11 AM EDT) Blood Result [facility] Miguel RODRIGUEZ-C LAB BLOOD ORDERABLES Final Re sult Performing Organization Address [facility]/ZIP Co de Phone Number [address] [address] * Glucose, fasting (01/11/2025 12:11 AM EDT) Blood Miguel RODRIGUEZ-C LAB BLOOD ORDERABLES Final Re sult Performing Organization Address [facility] Co de Phone Number [address] [address] * HM MAMMOGRAPHY FOR RESULT ENTRY ONLY (08/26/2024 10:07 AM EST) Historical Provider HEALTH MAINTENANCE Edited Result - Final * DXA Screening (08/19/2023 10:27 AM EST) Anatomical Region Laterality Modality Bone Density Bone Density Rachna Bernard NP IMG BD BONE DENSITY DEXA Final Result * Hepatitis C antibody, qualitative (01/09/2022 3:00 PM EDT) Blood Rachna Bernard NP LAB BLOOD ORDERABLES Final Resu lt Performing Organization Address City/State/[facility] Co de Phone Number [facility] [address] [place] [address] * COLONOSCOPY FOR RESULT ENTRY ONLY (06/20/2021) Historical Provider HEALTH MAINTENANCE Edited Result - Final from Last 3 Months or Most Recently Relevant to Health Maintenance Insurance [employer] [phone] [employer] Care Teams Airline Reservation Agent Relationship Specialty Start Date End Date Miguel Juan PA-C [address] [place] [phone] [email or web address] PCP - General Physician Marketing Officer 10/16/24 Additional Source Comments The information contained in this document represents components of the legal health record. It is not the complete legal health record.[facility]
--- NOTE | 2025-03-09 09:58 | A.OFFVIS_ITS ---
Vital Signs 03/09/25 10:08 Height 5 ft 3 in Weight 166 lb 3.657 oz BMI 29.4 BP 115/70 Blood Pressure Location Rt brachial Position Sitting Pulse 73 Pulse Source Pulse Oximeter Pulse Oximetry (%) 97 Oxygen Delivery Method Room Air Intake Visit Reasons: Back pain/new pt Intake Note: Patient presents for back pain. Patient c/o lower back pain. Patient has lower back pain for 3 years. Ibuprofen is short term relieve. Lidocaine doesn't work anymore. Allergies gluten (Gluten) Allergy (Severe, Verified 03/09/25 10:05) Gastrointestinal Upset Penicillins Allergy (Intermediate, Verified 03/09/25 10:05) Rash Sulfa (Sulfonamide Antibiotics) Allergy (Intermediate, Verified 03/09/25 10:05) Rash Codeine Phosphate Allergy (Intermediate, Uncoded 02/01/25 07:52) Nausea HPI Comments Details: Patient is a 69-year-old female with hyperlipidemia, hypothyroidism, GERD and degenerative joint disease of the spine here today for evaluation of back pain Has a long history of back pain with surgery with spinal fusion 2004 and was doing well until the recent 2-3 years. Started around age 42 when she was working at [employer] doing a lot of lifting heavy objects No antecedent trauma prior to the worsening. Has been seeing pain management and ortho. Received spinal steroid injection that has not given prolonged relief. Was offered a spinal stimulator but patient declined Here today for other treatment options. Denies peripheral inflammatory arthritis symptoms No inflammatory back pain red flags such as no change with exercise, no alternating buttock pain, age of onset before 20 No personal or family history of IBD or any other autoimmune disease PFSH Medical History Transient neurological symptoms Hypersomnia Snoring Chest pain Crescendo angina Angina pectoris Hypothyroidism Low back pain COVID-19 vaccine series completed Anxiety GERD (gastroesophageal reflux disease) Celiac disease Restless leg syndrome Surgical History Hx of bilateral cataract extraction History of esophagogastroduodenoscopy (EGD) Hx of colonoscopy Hx of foot surgery Hx of tonsillectomy Hx of appendectomy History of back surgery Family History Daughter Celiac disease Social History Household Members: Children Household Members Other:: son age 17 Housing: House Are you a primary patient care provider to a significant other at home: No Do you presently have visiting nurse or other home services: No Alcohol intake: current Alcohol intake frequency: holidays/special occasions only Patient Tobacco Use Status: Former Tobacco user Tobacco use type: Cigarette Advance Directives Date on File: 03/14/21 service: No Current occupational status: employed 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 Review of Systems Const Details: Review of Systems Constitutional: Denies fever, chills, weight loss ENT: Denies vision changes, eye pain or eye redness, dental caries, dry mouth GI: Denies nausea, vomiting, diarrhea, abdominal pain, change in BM Pulm: Denies SOB, [place], hemoptysis, wheezing Cards: Denies chest pain, palpitations Skin: Denies Raynaud's, rash, nail changes, photosensitivity, [employer]: Denies headaches, weakness, paresthesias, recurrent falls MSK: as per HPI All other systems reviewed and are unremarkable except noted above Physical Exam Exam Exam: Vital signs reviewed Physical Examination CONSTITUITIONAL Patient alert and cooperative. Well appearing and in no apparent painful distress HEENT Conjunctiva and sclera clear. No lymphadenopathy. MSK Hands * Right Hand: Able to make a fist. No swelling or tenderness to palpation of these joints. No deformities noted. * Left Hand: Able to make a fist. No swelling or tenderness to palpation of these joints. No deformities noted. Wrists * Right Wrist: Full ROM. 70 degrees of wrist flexion, 80 degrees of wrist extension. No swelling or TTP * Left Wrist: Full ROM. 70 degrees of wrist flexion, 80 degrees of wrist extension. No swelling or TTP Elbows * Right Elbow: Full ROM. No swelling or TTP. No TTP of the medial and lateral epicondyles * Left Elbow: Full ROM. No swelling or TTP. No TTP of the medial and lateral epicondyles Shoulders * Right shoulder: Full ROM. No swelling noted. No TTP of the AC joint, subacromial bursa or posterior shoulder * Left shoulder: Full ROM. No swelling noted. No TTP of the AC joint, subacromial bursa or posterior shoulder Hip bursa: No tenderness to palpation bilaterally Knees * Right knee: Full ROM. No swelling noted. No TTP of the knee joint lie * Left knee: Full ROM. No swelling noted. No TTP of the knee joint lie * Crepitations felt bilaterally * TTP of bilateral pes anserine bursa Ankles * Right ankle: Good ankle dorsiflexion and plantar flexion. No TTP of the ankle joint or subtalar joint. TTP and swelling over the lateral malleolus * Left ankle: Good ankle dorsiflexion and plantar flexion. No swelling. No TTP of the ankle joint Feet * Right foot: Negative squeeze test * Left foot: Negative squeeze test Tender points? * No tenderness to palpation of the bilateral trapezius, supraspinatus, anterior costochondral junctions, bilateral suboccipital muscle insertions SKIN No rashes Vital Signs: Last Vital Signs Pulse 73 03/09/25 10:08 BP 115/70 03/09/25 10:08 Pulse Ox 97 03/09/25 10:08 Oxygen Delivery Method Room Air 03/09/25 10:08 BMI result Body Mass Index 29.4 Results Reviewed Results Reviewed: Laboratory Tests 12/17/23 09/21/24 01/13/25 07:18 04:46 08:56 WBC 14.1 H RBC 4.18 L Hgb 12.2 Hct 35.9 L Plt Count 309 ESR 7 Sodium 142 Potassium 4.1 Chloride 109 H Carbon Dioxide 25 BUN 15 Creatinine 0.82 AST 28 ALT 23 Alkaline Phosphatase 101 25-OH Vitamin D Total 37 MR L spine and C spine 10/2023 FINDINGS: CERVICAL SPINE MRI: Cervical alignment is normal. There is moderate to severe disc volume loss at C5-C6 and C6-C7. Vertebral body heights are maintained. The craniocervical junction is unremarkable. There is no bone marrow edema. There are no acute fractures. The partially imaged intracranial compartment is unremarkable. The cervical arterial flow voids are maintained. There are no significant extraspinal soft tissue findings. C2-C3: Posterior disc contour is normal. No central canal stenosis and no foraminal stenosis. C3-C4: Disc contour is normal. Mild bilateral facet arthropathy. No central canal stenosis and no foraminal stenosis. C4-C5: Disc osteophyte without central canal stenosis. Uncovertebral joint spurring and facet arthropathy result in mild right-sided foraminal encroachment. C5-C6: A shallow right paracentral disc protrusion and ligamentum flavum thickening mildly narrow the central canal. Uncovertebral joint spurring and facet arthropathy result in moderate to severe right-sided foraminal stenosis. C6-C7: Disc osteophyte mildly narrows the central canal. Uncovertebral joint spurring and facet arthropathy result in severe right and moderate left foraminal stenosis. C7-T1: Disc contour is normal. No central canal stenosis and no foraminal stenosis. LUMBAR SPINE MRI: There are 5 nonrib-bearing lumbar-type vertebral bodies. There is grade 1 retrolisthesis of L1 on L2. Lumbar alignment is otherwise normal. The vertebral body heights are maintained. There is an interbody cage at L3-L4 anteriorly. Intraosseous hemangiomas within the L4 and S1 vertebral bodies. There is no bone marrow edema. There are no acute fractures. Conus terminates at the L1-L2 level. Extrarenal pelvises bilaterally. Partially imaged fibroid uterus. L1-L2: Grade 1 retrolisthesis. Small annular disc bulge. No central canal stenosis and no foraminal stenosis. Findings unchanged. L2-L3: Disc contour is normal. No central canal stenosis and no foraminal stenosis. L3-L4: Interbody cage in place. Mild bilateral facet arthropathy. No central canal stenosis and no foraminal stenosis. L4-L5: There is a similar right lateral disc protrusion that along with advanced facet arthropathy results in similar moderate right-sided foraminal stenosis and mass effect on the extraforaminal right L4 nerve root. There is a background annular disc bulge and there is bilateral facet arthropathy and ligamentum flavum thickening. Similar narrowing of the subarticular zones with mild mass effect on the traversing L5 nerve roots bilaterally. L5-S1: Diffuse annular disc bulge and severe bilateral facet arthropathy. No central canal stenosis. Mild foraminal encroachment bilaterally. IMPRESSION: - Multilevel cervical spondylosis. Spondylitic changes result in moderate to severe right C5-C6 as well as severe right and moderate left C6-C7 foraminal stenosis. There is no severe central canal stenosis within the cervical spine. - Stable appearing multilevel lumbar spondylosis. Interbody cage again noted L3-L4. At L4-L5, a right lateral disc protrusion and advanced facet arthropathy result in similar moderate right-sided foraminal stenosis and mass effect on the extraforaminal right L4 nerve root. Spondylitic changes at L4-L5 result in similar bilateral subarticular zone stenosis with mass effect on the traversing L5 nerve roots bilaterally. Additional stable degenerative findings throughout the lumbar spine as described. - Partially imaged fibroid uterus. Assessment & Plan Assessment & Plan (1) Intractable back pain: Code(s): M54.9 - Dorsalgia, unspecified Category: Medical Plan: #Back pain Patient is a 69-year-old female with back pain here today for evaluation. At this time there is no clinical or laboratory evidence of inflammatory type back pain. Her back pain is all due to degenerative/mechanical disease. There is also an element of gluteus medius/minimus tendinopathy on the left side which is also contributing to her back pain. I recommended that she continue following up with pain management and ortho. No role for Rheumatology in the management of mechanical back pain Plan I spent 30 minutes reviewing the record and labs, taking a history, examining the patient, discussing the treatment plan, ordering diagnostic work up and documenting in the medical record Coding Level of Care Code New Pt Level 3 (48912) Diagnoses Intractable back pain M54.9
[2025-03-09 10:08] VITALS: BP 115/70; PULSE 73; O2SAT 97; BMI 29.4
== END 2025-03-09 10:44 | disposition home or self-care (01) ==
LOC: HO.RHE 09:39
PROVIDERS: PCP Registered Nurse; Visit Provider Student in an Organized Health Care Education/Training Program
DX: M54.9 Dorsalgia, unspecified (principal)
CPT/HCPCS: 99203

== ENCOUNTER → 2025-03-12 05:09 | Outpatient (BNV) | payer OTHER, SELFPAY | PROVIDERS: Emergency Provider Emergency Medicine; PCP Physician Assistant Surgical; Visit Provider Radiology Diagnostic Radiology | DX: R60.0 Localized edema (principal); M54.6 Pain in thoracic spine; M25.571 Pain in right ankle and joints of right foot; R22.41 Localized swelling, mass and lump, right lower limb | CPT/HCPCS: 71046; 73600; 93971 ==

== ENCOUNTER 2025-03-12 05:55 | Emergency (ER) | payer OTHER, SELFPAY ==
--- NOTE | ~2025-03-12 | XR_ITS ---
EXAMINATION: XR CHEST CLINICAL INFORMATION: upper back pain COMPARISON: 06/14/2023. TECHNIQUE: 2 views of the chest were obtained. FINDINGS: The cardiac, hilar, and mediastinal contours are normal. The lungs are clear bilaterally. There is no pneumothorax or pleural effusion. There is no focal osseous or soft tissue abnormality. XR/XR chest 2V IMPRESSION: No active pulmonary disease. Electronically signed by: Sean Herring MD 03/12/2025 08:08 AM EDT
--- NOTE | ~2025-03-12 | XR_ITS ---
EXAMINATION: XR ANKLE, RIGHT CLINICAL INFORMATION: swelling/pain COMPARISON: None available. TECHNIQUE: AP, lateral, and mortise views of the right ankle. FINDINGS: No fracture, dislocation, or suspicious bone lesion. There is anatomical alignment. The mortise is intact. The talar dome is normal. Joint spaces are preserved. The subtalar joints appear normal. There is a small plantar calcaneal spur. No soft tissue abnormalities. XR/XR ankle RT 2V IMPRESSION: No acute bony abnormalities right ankle. Electronically signed by: Sean Herring MD 03/12/2025 08:10 AM EDT
--- NOTE | ~2025-03-12 | US_ITS ---
EXAMINATION: US TRIPLEX LOWER EXTREMITY, RIGHT CLINICAL INFORMATION: Right leg edema. COMPARISON: None available. TECHNIQUE: Color-flow triplex imaging with spectral analysis and compression Doppler were performed on the right lower extremity. FINDINGS: Respiratory variation, normal compression and augmented flow are noted throughout the right lower extremity. The visualized common femoral vein, superficial femoral vein, profunda femoral vein, popliteal vein and midcalf peroneal and posterior tibial venous segments show no evidence of deep venous thrombosis. Incidental finding of an echogenic long nonvascular area right medial distal thigh question lipoma. It measures 0.4 x 0.3 x 0.4 cm There is no Kennedy's cyst. US/US venous duplex LE RT IMPRESSION: No evidence of deep venous thrombosis involving the right lower extremity. Electronically signed by: Darren Suarez MD 03/12/2025 09:41 AM EDT
[2025-03-12 05:58] VITALS: BP 116/70; PULSE 96; RESP 18; TEMP 36.8; O2SAT 95; BMI 29.4
--- OUTSIDE RECORDS SUMMARY | 2025-03-12 06:17 | XMS_ITS | Clinical Summary ---
Author Organization [facility] Address [address] [place] [id number] Phone Care Team Providers Care Plate Corrector Name Role Phone Miguel Juan PA-C Primary Care Provider [phone] Allergies Active Allergy Reactions Criticality Noted Date [...] EDT): Patient underwent laboratory data done at [facility]. Her labs were discussed during her office visit. She is up-to-date on her colonoscopy, mammogram and Pap smear will be completed this coming fall at [facility]. Annual physical 1 year Migraine without [...] up with neurology and referral placed to [facility] per patient request Urine frequency 12/14/2023 Assessment [...] 8:09 AM EDT): Patient follows closely with [facility] and has undergone cortisone [...] (04/14/2024 9:44 AM EDT): Continue follow-up with [facility] as she notes that she prefers their office over [facility]. Does note that previous injections were helpful for recent travel to [place]. Hypothyroidism 12/21/2017 Assessment & Plan (01/25/2025 8:08 [...] Description 01/25/2025 7:20 AM EDT Office Visit [facility] [address] [place] [address] Miguel Juan PA-C Routine general medical examination at a health care facility (Primary Dx); Mixed hyperlipidemia; Acquired hypothyroidism; Restless leg syndrome; Migraine without aura and without status migrainosus, not intractable; Chronic bilateral low back pain with left-sided sciatica; Gastroesophageal reflux disease without esophagitis; Anxiety; Bilateral impacted cerumen 01/25/2025 Documentation [facility] [address] [place] [address] Miguel Juan PA-C 01/19/2025 Orders Only [facility] [address] [facility] [address] [place] [address] Ami Hoffman FNP Deficiency of other specified B group vitamins; Vitamin D deficiency, unspecified 01/19/2025 Orders Only [facility] [address] [place] [address] Miguel Juan PA-C Routine general medical examination at a health care facility; Mixed hyperlipidemia 01/16/2025 Orders Only [facility] [address] [place] [address] Provider, MD Kristian 01/03[facility] [address] [facility] [place] [address] Miguel Juan PA-C Medication Refill 01/01/2025 [facility] [address] [place] [place] [address] Miguel Juan PA-C Medication Refill from Last [...] Description 05/03/2025 8:00 AM EDT Office Visit [facility] [address] [place] [address] Miguel Juan PA-C [address] [place] [address] Health Maintenance Due Date Last Done Comments [...] 11:34 AM EDT) Blood us Ami Hoffman VISITOR SERVICES COORDINATOR LAB BLOOD ORDERABLES Final Result [facility] [address] [place] [address] * Outside Lab (01/13/2025 1:26 PM EDT) Only the most recent of3 resultswithin the time period is included. us Historical Provider LAB BLOOD ORDERABLES Loren l Result * Vitamin B12 (01/13/2025 12:10 AM EDT) Blood Result [facility] Ami Hoffman VISITOR SERVICES COORDINATOR LAB BLOOD ORDERABLES Final Result [address] [address] * (ABNORMAL) Outside Triglycerides (01/13/2025) Triglycerides - External 203(A) 35 - 150 mg/dL Result [facility] MD LAB BLOOD ORDERABLES Loren l Result * Outside TSH Level (01/13/2025) TSH - External 0.61 0.5 - 5 uIU/L Result [facility] MD LAB BLOOD ORDERABLES Loren l Result * Outside Potassium Level (01/13/2025) Potassium level - External 4.1 3.4 - 5.0 mmol/L Result [facility] MD LAB BLOOD ORDERABLES Loren l Result * Outside LDL (01/13/2025) LDL - External 140 50 - 250 mg/dL Result [facility] MD LAB BLOOD ORDERABLES Loren l Result * Outside Glucose,Fasting (01/13/2025) Glucose, fasting - External 96 65 - 99 mg/dL Result [facility] MD LAB BLOOD ORDERABLES Loren l Result * Outside Serum Creatinine Level (01/13/2025) Creatinine, serum - External 0.82 0.8 - 1.3 mg/dL Result [facility] MD LAB BLOOD ORDERABLES Loren l Result * Outside ALT Level (01/13/2025) ALT - External 23 5 - 30 U/L Result [facility] MD LAB BLOOD ORDERABLES Loren l Result * (ABNORMAL) Outside Total Cholesterol (01/13/2025) Cholesterol, total - External 225(A) <=200 mg/dL Result [facility] Historical Provider MD LAB BLOOD ORDERABLES Loren l Result * Outside HDL (01/13/2025) Pathologist [facility] HDL - External 44 40 - 80 mg/dL Result [facility] Historical Provider MD LAB BLOOD ORDERABLES Loren l Result * TSH with reflex (01/11/2025 12:11 AM EDT) Blood Miguel RODRIGUEZ-C LAB BLOOD ORDERABLES Final Re sult Performing Organization Address [facility] Co de Phone Number [address] [phone] * Lipid panel (01/11/2025 12:11 AM EDT) Blood Miguel RODRIGUEZ-C LAB BLOOD ORDERABLES Final Re sult Performing Organization Address [facility] Co de Phone Number [address] [address] * Comprehensive metabolic panel (01/11/2025 12:11 AM EDT) Blood Result [facility] Miguel RODRIGUEZ-C LAB BLOOD ORDERABLES Final Re sult Performing Organization Address [facility]/ZIP Co de Phone Number [address] [address] * Glucose, fasting (01/11/2025 12:11 AM EDT) Blood Miguel RODRIGUEZ-C LAB BLOOD ORDERABLES Final Re sult Performing Organization Address [facility] Co de Phone Number [address] [address] * HM MAMMOGRAPHY FOR RESULT ENTRY ONLY [...] Final Resu lt Performing Organization Address City/State/[facility] Co de Phone Number [facility] [address] [place] [address] * COLONOSCOPY FOR RESULT ENTRY ONLY (06/20/2021) Historical Provider HEALTH MAINTENANCE Edited Result - Final from Last 3 Months or Most Recently Relevant to Health Maintenance Insurance [employer] BENEFITS ADMINISTRATORS [employer]EF[employer]AT[employer]MIN[employer]MIN[employer] Care Teams Plate Corrector Relationship Specialty Start Date End Date Miguel Juan PA-C [address] [place] [id number] [email or web address] PCP - General Physician [place] Performer 10/16/24 Additional Source Comments The information contained in this document represents components of the legal health record. It is not the complete legal health record.[facility]
--- NOTE | 2025-03-12 07:31 | ED.GENADULT ---
HPI - General Adult General Chief complaint: General Medical Stated complaint: back pain Time Seen by Provider: 03/12/25 07:23 Source: patient Mode of arrival: ambulatory Limitations: no limitations History of Present Illness HPI narrative: This is a 69 years old female patient presented to the emergency department with multiple complaints which include right ankle pain he is willing, also she is complaining of upper back pain, denies any fever chills vomiting she does have history of intractable back pain she is followed by the pain clinic. Onset (ago): day(s) Location: lower extremity (rt ankle) Radiation: non-radiation Severity: moderate Quality: burning Pain Consistency: constant Relieving factors: none Exacerbating factors: none Associated symptoms: denies other symptoms Related Data Home Medications ?Medication ?Instructions ?Recorded ?Confirmed lidocaine 5 % topical patch 1 patch topical DAILY PRN Pain 01/28/21 09/21/24 lorazepam 0.5 mg tablet 1 tab PO BID PRN anxiety 01/28/21 09/21/24 omeprazole 20 mg capsule,delayed 20 mg PO DAILY 03/06/21 09/21/24 release pramipexole 1 mg tablet 1 mg PO BEDTIME 03/16/22 09/21/24 ibuprofen 600 mg tablet 1 tab PO TID PRN pain 10/15/22 09/21/24 aspirin 81 mg tablet,delayed 81 mg PO DAILY 12/13/23 09/21/24 release (Adult Aspirin Regimen) cholecalciferol (vitamin D3) 25 25 mcg PO DAILY 09/21/24 09/21/24 mcg (1,000 unit) chewable tablet (Vitamin D3) levothyroxine 75 mcg tablet 75 mcg PO DAILY 09/21/24 09/21/24 atorvastatin 10 mg tablet 10 mg PO DAILY 02/01/25 Previous Rx's ?Medication ?Instructions ?Recorded cephalexin 500 mg capsule 500 mg PO Q8H 7 days #21 caps 03/12/25 oxycodone 10 mg tablet 10 mg PO BID PRN pain #10 tabs 03/12/25 Allergies Allergy/AdvReac Type Severity Reaction Status Date / Time gluten (Gluten) Allergy Severe Gastrointestinal Verified 03/12/25 06:08 Upset Penicillins Allergy Intermediate Rash Verified 03/12/25 06:08 Sulfa (Sulfonamide Allergy Intermediate Rash Verified 03/12/25 06:08 Antibiotics) Codeine Phosphate Allergy Intermediate Nausea Uncoded 02/01/25 07:52 Review of Systems Constitutional: Constitutional: Reports no additional constitutional complaints ENT: Reports system reviewed and no additional complaints, except as documented Respiratory: Respiratory: Reports no additional respiratory complaints [facility] Past Medical History Attestation statement: The following information was validated with the patient. Medical History Transient neurological symptoms Hypersomnia Snoring Chest pain Crescendo angina Angina pectoris Hypothyroidism Low back pain COVID-19 vaccine series completed Anxiety GERD (gastroesophageal reflux disease) Celiac disease Restless leg syndrome Surgical History Hx of bilateral cataract extraction History of esophagogastroduodenoscopy (EGD) Hx of colonoscopy Hx of foot surgery Hx of tonsillectomy Hx of appendectomy History of back surgery Family History Family History Daughter Celiac disease Social History Social History Household Members: Children Household Members Other:: son age 17 Housing: House Are you a primary account executive healthcare to a significant other at home: No Do you presently have visiting nurse or other home services: No Alcohol intake: current Alcohol intake frequency: holidays/special occasions only Patient Tobacco Use Status: Former Tobacco user Tobacco use type: Cigarette Advance Directives: Yes Advance Directives Information Provided: No Advance Directives on File: No Advance Directives Date on File: 03/14/21 service: No Current occupational status: employed Current occupation: [employer] [place] [place] referral center/ 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 Physical Exam ED Exam Exam: No acute distress comfortable in the stretcher Vital Signs: Vital Signs - 24 hr 03/12/25 05:58 Temperature 98.2 F Pulse Rate 96 Respiratory Rate 18 Blood Pressure 116/70 Pulse Oximetry 95 Oxygen Delivery Method Room Air BMI result Body Mass Index 29.4 Vital signs are stable normotensive afebrile Const General: cooperative Nutritional Appearance: average body habitus Orientation/consciousness: patient oriented x3 Limitations: no limitations HENMT Head: Yes normal to inspection General nose exam: Normal external nose present Face and sinus: Yes normal facial exam Mouth: Normal oral and palatal mucosa present Neck Neck: Yes normal visual inspection Chest Chest palpation & inspection: normal inspection of the chest Resp Effort & Inspection: normal respiratory effort Auscultation: clear to auscultation bilaterally Cardio Jugular venous distension: no JVD Rate: regular rate Rhythm: regular rhythm GI Inspection: Yes normal to inspection Palpation (GI): Soft to palpation, not firm and nontender Auscultation: normal bowel sounds Back/Spine/Pelvis Other: Tenderness in the lower thoracic spine Neuro General: patient oriented x3 Extrem Other: Examination of the right ankle shows some swelling, the ankle is warm,mild redness dorsal aspect right foot Course Reevaluation(s) Reevaluation #1: WORKUP IS NOW COMPLETED ULTRASOUND SHOWS NO DVT, X-RAY IS NEGATIVE FOR FRACTURE, THE RIGHT FOOT IS A LITTLE BIT RED SHE DOES NOT HAVE A LITTLE ELEVATED INFLAMMATORY MARKER, I THINK SHE CAN BE DISCHARGED HOME THOUGH A WE WILL GIVE AN ANTIBIOTIC POSSIBLE EARLY CELLULITIS, SHE IS COMFORTABLE WITH THE PLAN OF CARE ANTICIPATE DISCHARGE Time: 11:02 Medical Decision Making Medical Decision Making MDM Narrative: Patient is here with multiple complaints including right ankle swelling, upper back pain she does have history of intractable back pain. It is reasonable to obtain ultrasound of the right lower extremity to rule out DVT also CBC and chemistry 11 a.m. ultrasound negative, x-ray foot negative, she does have mild redness mild warm right foot and the elevated CRP will send home with AB for possible cellulitis Differential Diagnosis Differential Diagnoses: The differential diagnosis associated with the presentation includes DVT/right ankle sprain/cellulitis ankle Admission/Observation Consideration of admission/observation: Escalation of care including admission/observation considered Lab Data 03/12/25 09:07 03/12/25 09:07 Labs: Lab Results 03/12/25 Range/Units 09:07 WBC 9.0 (4.8-10.8) X10*3/uL RBC 4.32 (4.20-5.50) X10*6/uL Hgb 12.5 (12.0-16.0) g/dl Hct 37.4 (37.0-47.0) % MCV 86.6 (80.0-98.0) fL MCH 28.9 (27.0-33.0) pg MCHC 33.4 (31.0-35.0) g/dl RDW 13.8 (11.0-16.0) % Plt Count 275 (160-400) X10*3/uL MPV 11.8 (9.4-12.3) fL Immature Gran % (Auto) 0.4 (0.0-0.4) % Neut % (Auto) 78.9 H (45-73) % Lymph % (Auto) 12.7 L (20-40) % [place] % (Auto) 6.7 (2-11) % Eos % (Auto) 0.9 (0-4) % Baso % (Auto) 0.4 (0-2) % Lymph # (Auto) 1.1 L (1.2-4.9) X10*3/uL [place] # (Auto) 0.6 (0.1-1.2) X10*3/uL Eos # (Auto) 0.1 (0.0-0.4) X10*3/uL Baso # (Auto) 0.0 (0.0-0.2) X10*3/uL Abs Immat Gran (auto) 0.04 H (0.00-0.03) X10*3/uL Absolute Neuts (auto) 7.1 (2.0-8.3) x10*3/uL Absolute Nucleated RBC 0.000 (0.0-0.012) X10*3/uL Nucleated RBC % (auto) 0.0 (0.0-0.2) /100WBC Sodium 143 (135-145) mmol/L Potassium 3.9 (3.3-5.1) mmol/L Chloride 114 H (96-108) mmol/L Carbon Dioxide 23 (22-29) mmol/L Anion Gap 10 L (12-20) BUN 12 (9-16) mg/dL Creatinine 0.76 (0.5-1.4) mg/dL Estim Creat Clear Calc 69.8 Estimated GFR > 60 Random Glucose 99 (60-115) mg/dL Calcium 8.9 D (8.4-10.2) mg/dL Total Bilirubin 0.7 (0.0-1.0) mg/dL AST 27 (5-31) U/L ALT 17 (0-31) U/L Alkaline Phosphatase 99 (39-117) U/L C-Reactive Protein 2.99 H (< or = 0.50) mg/dL Total Protein 6.6 (6.5-8.0) g/dL Albumin 4.1 (3.5-5.0) g/dL Discharge Plan Discharge Clinical Impression: Acute ankle pain Qualifiers: Laterality: right Qualified Code(s): M25.571 - Pain in right ankle and joints of right foot Cellulitis Qualifiers: Site of cellulitis: extremity Site of cellulitis of extremity: lower extremity Laterality: right Qualified Code(s): L03.115 - Cellulitis of right lower limb Patient Disposition: Home, Self-Care Instructions: Cellulitis (ED), Arthralgia (ED) Additional Instructions: PLEASE CALL YOUR PRIMARY CARE PHYSICIAN TODAY AND MAKE AN APPOINTMENT RETURN IF YOU WORSE WE SENT A PRESCRIPTION FOR YOU TO [facility] Prescriptions: New oxycodone 10 mg tablet 10 mg PO BID PRN (Reason: pain) Qty: 10 0RF Rx Instructions: Partial Fill upon patient request. cephalexin 500 mg capsule 500 mg PO Q8H 7 Days Qty: 21 0RF No Action lorazepam 0.5 mg tablet 1 tab PO BID PRN (Reason: anxiety) lidocaine 5 % adhesive patch,medicated 1 patch topical DAILY PRN (Reason: Pain) ibuprofen 600 mg tablet 1 tab PO TID PRN (Reason: pain) levothyroxine 75 mcg Tablet 75 mcg PO DAILY cholecalciferol (vitamin D3) [Vitamin D3] 25 mcg (1,000 unit) Tablet,Chewable 25 mcg PO DAILY omeprazole 20 mg capsule,delayed release(DR/EC) 20 mg PO DAILY pramipexole 1 mg tablet 1 mg PO BEDTIME aspirin [Adult Aspirin Regimen] 81 mg tablet,delayed release (DR/EC) 81 mg PO DAILY atorvastatin 10 mg tablet 10 mg PO DAILY Print Language: Spanish
--- NOTE | 2025-03-12 07:49 | PC.NURSE ---
pt was evaluated by md mccall, awaiting lab results and and US and cxr. Pedal pulses are strong and = bilat with good cms bilat. patient is in no distress.
[2025-03-12 09:11] LABS: MANUAL DIFF FLAG NO
[2025-03-12 09:14] LABS: Hematocrit 37.4 % (37.0-47.0); Hemoglobin 12.5 g/dl (12.0-16.0); Imm Gran Abs Auto 0.04 X10*3/uL (0.00-0.03); Imm Gran Pct Auto 0.4 % (0.0-0.4); Lymphocytes Absolute Auto 1.1 X10*3/uL (1.2-4.9); Mean Corpuscular HGB Conc 33.4 g/dl (31.0-35.0); Mean Corpuscular Hemoglobin 28.9 pg (27.0-33.0); Mean Corpuscular Volume 86.6 fL (80.0-98.0); NRBC Abs Auto 0.000 X10*3/uL (0.0-0.012); NRBC Pct Auto 0.0 /100WBC (0.0-0.2); Platelet Count 275 X10*3/uL (160-400); Red Blood Count 4.32 X10*6/uL (4.20-5.50); White Blood Count 9.0 X10*3/uL (4.8-10.8)
[2025-03-12 09:29] LABS: Alanine Aminotransferase 17 U/L (0-31); Albumin Level 4.1 g/dL (3.5-5.0); Alkaline Phosphatase 99 U/L (39-117); Anion Gap 10 (12-20); Aspartate Amino Transferase 27 U/L (5-31); Blood Urea Nitrogen 12 mg/dL (9-16); Calcium 8.9 mg/dL (8.4-10.2); Carbon Dioxide 23 mmol/L (22-29); Chloride 114 mmol/L (96-108); Creatinine Clr Calc Pharmacy 69.8; Estimated Glomerular Filt Rate > 60; Potassium 3.9 mmol/L (3.3-5.1); Sodium 143 mmol/L (135-145); Total Protein 6.6 g/dL (6.5-8.0)
[2025-03-12 11:21] VITALS: BP 123/73; PULSE 77; RESP 18; TEMP 36.4; O2SAT 97
[2025-03-12 12:13] VITALS: BP 123/73; PULSE 77; RESP 18; TEMP 36.4; O2SAT 97
== END 2025-03-12 12:13 | disposition home or self-care (01) ==
PROVIDERS: Emergency Provider Emergency Medicine; PCP Physician Assistant Surgical
DX: L03.115 Cellulitis of right lower limb (principal); R60.0 Localized edema; M25.571 Pain in right ankle and joints of right foot
CPT/HCPCS: 36415; 71046; 73600; 80053; 85025; 86140; 93971; 99283; 99284

== ENCOUNTER → 2025-03-15 06:13 | Outpatient (BNV) | payer OTHER, SELFPAY | PROVIDERS: Emergency Provider Emergency Medicine; PCP Physician Assistant Surgical; Visit Provider Radiology Diagnostic Radiology | DX: M25.571 Pain in right ankle and joints of right foot (principal) | CPT/HCPCS: 73630 ==

== ENCOUNTER 2025-03-15 06:50 | Emergency (ER) | payer OTHER, SELFPAY ==
--- NOTE | ~2025-03-15 | XR_ITS ---
EXAMINATION: XR FOOT, RIGHT CLINICAL INFORMATION: swelling pain COMPARISON: None available. TECHNIQUE: AP, lateral, and oblique views of the right foot. FINDINGS: No acute cortical disruption. No gross malalignment. Degenerative changes in the first tarsometatarsal joint. No lytic or blastic lesions. Small spur, calcaneus. No subcutaneous emphysema. No gross joint effusion. Prominent soft tissues in the distal dorsal aspect of the foot. XR/XR foot RT min 3V IMPRESSION: Soft tissue edema without subcutaneous emphysema. No acute fracture or dislocation. No osteomyelitis on x-ray. Electronically signed by: Michael Johnston MD 03/15/2025 08:00 AM EDT
[2025-03-15 06:53] VITALS: BP 114/72; PULSE 82; RESP 15; TEMP 36.2; O2SAT 95; BMI 29.0
[2025-03-15 07:21] LABS: MANUAL DIFF FLAG NO
[2025-03-15 07:24] LABS: Hematocrit 38.8 % (37.0-47.0); Hemoglobin 13.0 g/dl (12.0-16.0); Imm Gran Abs Auto 0.03 X10*3/uL (0.00-0.03); Imm Gran Pct Auto 0.4 % (0.0-0.4); Lymphocytes Absolute Auto 1.5 X10*3/uL (1.2-4.9); Mean Corpuscular HGB Conc 33.5 g/dl (31.0-35.0); Mean Corpuscular Hemoglobin 28.8 pg (27.0-33.0); Mean Corpuscular Volume 85.8 fL (80.0-98.0); NRBC Abs Auto 0.000 X10*3/uL (0.0-0.012); NRBC Pct Auto 0.0 /100WBC (0.0-0.2); Platelet Count 319 X10*3/uL (160-400); Red Blood Count 4.52 X10*6/uL (4.20-5.50); White Blood Count 7.9 X10*3/uL (4.8-10.8)
[2025-03-15 07:36] LABS: Alanine Aminotransferase 14 U/L (0-31); Albumin Level 4.4 g/dL (3.5-5.0); Alkaline Phosphatase 107 U/L (39-117); Anion Gap 11 (12-20); Aspartate Amino Transferase 23 U/L (5-31); Blood Urea Nitrogen 11 mg/dL (9-16); Calcium 9.5 mg/dL (8.4-10.2); Carbon Dioxide 23 mmol/L (22-29); Chloride 110 mmol/L (96-108); Creatinine Clr Calc Pharmacy 65.8; Estimated Glomerular Filt Rate > 60; Potassium 3.4 mmol/L (3.3-5.1); Sodium 141 mmol/L (135-145); Total Protein 6.9 g/dL (6.5-8.0)
[2025-03-15 07:42] LABS: B Type Natriuretic Peptide 25 pg/mL (<100)
--- NOTE | 2025-03-15 08:16 | ED_ITS ---
HPI - General Adult General Chief complaint: Extremity Injury, Lower Stated complaint: right ankle pain Time Seen by Provider: 03/15/25 08:07 Source: patient Mode of arrival: ambulatory Limitations: no limitations History of Present Illness ED Provider: Maggie Moreno PA-C HPI narrative: Patient is a 69 year old assigned female at with a history of chronic back pain presenting to the emergency department today with continued right ankle pain. Patient states that she was seen here 3 days ago for right ankle pain, redness, and swelling and at that time was started on an antibiotic and given oxycodone. She states that she is taking the antibiotic but is not currently taking the oxycodone. Patient states that she currently has poison mis which she was prescribed a steroid but is set to pick that up today. Patient states that she continues to use an SHAKIRA wrap on her right ankle but it hurts to walk and is still swollen. Patient denies any dizziness, lightheadedness, abdominal pain, nausea, vomiting, fever, chills, blurry vision, double vision, loss of vision, chest pain, difficulty breathing, shortness of breath, back pain, night sweats, pain with urination, increased urinary frequency, increased urinary urgency, blood in her urine or stool, syncope or a near syncopal episode, recent trauma or falls, bowel incontinence, bladder incontinence, or any other complaints at this time. Onset (ago): day(s) Location: right and lower extremity Relieving factors: none Exacerbating factors: none Associated symptoms: denies other symptoms Treatments prior to arrival: other (Antibiotic) Related Data Home Medications ?Medication ?Instructions ?Recorded ?Confirmed lidocaine 5 % topical patch 1 patch topical DAILY PRN Pain 01/28/21 09/21/24 lorazepam 0.5 mg tablet 1 tab PO BID PRN anxiety 04/1209/21/24 omeprazole 20 mg capsule,delayed 20 mg PO DAILY 09/21/24 release pramipexole 1 mg tablet 1 mg PO BEDTIME 03/16/22 ibuprofen 600 mg tablet 1 tab PO TID PRN pain 09/21/24 aspirin 81 mg tablet,delayed 81 mg PO DAILY 12/13/23 0 09/21/24 release (Adult Aspirin Regimen) cholecalciferol (vitamin D3) 25 25 mcg PO DAILY 09/21/24 mcg (1,000 unit) chewable tablet (Vitamin D3) levothyroxine 75 mcg tablet 75 mcg PO DAILY 09/21/24 0 09/21/24 atorvastatin 10 mg tablet 10 mg PO DAILY 02/01/25 Previous Rx's ?Medication ?Instructions ?Recorded cephalexin 500 mg capsule 500 mg PO Q8H 7 days #21 cap s 03/12/25 oxycodone 10 mg tablet 10 mg PO BID PRN pain #10 ta bs 03/12/25 Allergies Allergy/AdvReac Type Severity Reaction Status Date / Time gluten (Gluten) Allergy Severe Gastrointestinal Verified 03/15/25 07:01 Upset Penicillins Allergy Intermediate Rash Verified 03/15/25 07:01 Sulfa (Sulfonamide Allergy Intermediate Rash Verified 03/15/25 07:01 Antibiotics) Codeine Phosphate Allergy Intermediate Nausea Uncoded 03/15/25 07:01 Review of Systems 2 Constitutional: Constitutional: Reports no additional constitutional complaints, Denies chills, Denies fever(s) and Denies night sweats Eyes: Eyes: Reports no additional eye complaints, Denies blurry vision, Denies change in vision, Denies diplopia, Denies eye discharge, Denies loss of vision and Denies eye pain ENT: Denies dizziness Cardiovascular: Cardiovascular: Reports no additional cardiovascular complaints, Denies chest pain, Denies lightheadedness, Denies Loss of Consciousness and Denies dyspnea Respiratory: Respiratory: Reports no additional respiratory complaints and Denies dyspnea Gastrointestinal: Gastrointestinal: Reports no additional gastrointestinal complaints, Denies abdominal pain, Denies melena, Denies hematochezia, Denies change in bowel habits and Denies change in stool character Genitourinary: Genitourinary: Denies hematuria, Denies urinary frequency, Denies dysuria, Denies urinary incontinence, Denies urinary hesitancy and Denies urinary urgency Musculoskeletal: Musculoskeletal: Reports no additional musculoskeletal complaints, Denies numbness and Denies tingling Comments: right ankle pain, swelling, and erythema Neurologic: Denies dizziness, Denies loss of vision, Denies numbness and Denies tingling Psychiatric: Psychiatric: Reports no additional psychiatric complaints Endocrine: Endocrine: Reports no additional endocrine complaints Hematologic/Lymphatic: Hematologic/Lymphatic: Reports no additional hematologic/lymphatic complaints Allergic/Immunologic: Allergic/Immunologic: Reports no additional allergic/immunologic complaints PMFSH Past Medical History Attestation statement: The following information was validated with the patient. Source: old records reviewed and nursing notes reviewed Medical History Transient neurological symptoms Hypersomnia Snoring Chest pain Crescendo angina Angina pectoris Hypothyroidism Low back pain COVID-19 vaccine series completed Anxiety GERD (gastroesophageal reflux disease) Celiac disease Restless leg syndrome Surgical History Hx of bilateral cataract extraction History of esophagogastroduodenoscopy (EGD) Hx of colonoscopy Hx of foot surgery Hx of tonsillectomy Hx of appendectomy History of back surgery Family History Family History Daughter Celiac disease Social History Social History Household Members: Children Household Members Other:: son age 17 Housing: House Are you a primary health and social care teacher to a significant other at home: No Do you presently have visiting nurse or other home services: No Alcohol intake: current Alcohol intake frequency: holidays/special occasions only Patient Tobacco Use Status: Former Tobacco user Tobacco use type: Cigarette Advance Directives: No Advance Directives Information Provided: Yes Advance Directives Date on File: 03/14/21 Do you have a plan to hurt others: No Plan service: No Current occupational status: employed 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/ 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 Physical Exam ED Vital Signs: Vital Signs - 24 hr 03/15/25 06:53 Temperature 97.1 F Pulse Rate 82 Respiratory Rate 15 Blood Pressure 114/72 Pulse Oximetry 95 Oxygen Delivery Method Room Air BMI result Body Mass Index 29.0 Const General: cooperative, no acute distress, alert and awake Nutritional Appearance: well nourished Orientation/consciousness: patient oriented x3 HENMT Head: Yes normal to inspection and Yes atraumatic Ears: hearing grossly normal bilaterally and external ears normal General nose exam: Normal external nose present, no nasal discharge noted and no epistaxis Face and sinus: Yes normal facial exam, No abrasion and No laceration Mouth: Normal oral and palatal mucosa present, no drooling and no muffled voice Eyes General: appearance normal, both eyes and all related structures Periorbital: periorbital findings normal Eyelids: Yes eyelids normal Conjunctivae: conjunctivae normal Pupils: Equal, round and reactive pupils present EOM: EOMs intact bilaterally Neck Neck: Yes normal visual inspection, Yes full ROM and Yes no lymphadenopathy Resp Effort & Inspection: normal respiratory effort and able to speak in complete sentences Neuro General: patient oriented x3, moves all extremities and CN's II-XI intact bilaterally Cranial nerves: Yes Equal, round and reactive pupils present Cognition (Neuro): normal cognition Extrem Other: very minimal redness present to the posterior right ankle mild swelling present to the right ankle full right ankle ROM - able to bear weight General: Yes full ROM and Yes capillary refill normal Psych Appearance: grossly normal Mental Status: mental status grossly normal Affect: normal affect Attitude: cooperative Thought process: Normal thought process present Thought content: Normal thought content present Insight: Good insight present (Psych) Procedures Orthopedic Splinting/Casting Injury #1: Side: right Lower Extremity Injury Location: ankle Lower Extremity Immobilizer: boot orthosis Medical Decision Making Medical Decision Making MDM Narrative: Patient is a 69 year old assigned female at with a history of chronic back pain presenting to the emergency department today with continued right ankle pain. Patient's physical exam was as noted in the physical exam portion of this note. I am suspicious this patient is having an arthritis vs. gout flare and the steroid she has been prescribed for her prednisone will likely also help with her continued ankle pain. Patient's blood work was unremarkable. Patient's right foot x-ray, which also includes the ankle on imaging, showed no acute bony process. I explained my physical exam findings as well as all test results to the patient. I answered all questions asked by the patient. Patient had concerns with ambulating without pain - so together, through shared decision making, we determined the patient should use a walking boot to assist with offloading heel pressure. I stressed the importance of the patient taking [his/her/their] medication as directed (either prescribed or as the over the counter packaging recommends). I stressed the importance of the patient following up with her primary care provider and given her symptoms - the orthopedic group. I stressed the importance of the patient returning to the emergency department immediately if her symptoms were to worsen or if she were to develop any dizziness, shortness of breath, difficulty breathing, chest pain, blurry vision, loss of vision, nausea, vomiting, abdominal pain, fever, chills, back pain, or any other complaints. Patient verbalized agreement and understanding with this treatment plan and discharge. Differential Diagnosis Differential Diagnoses: The differential diagnosis associated with the presentation includes Right ankle pain Right ankle gout Right ankle swelling Right ankle OA Admission/Observation Consideration of admission/observation: Escalation of care including admission/observation considered Patient would have been admitted to the hospital had her work up had any findings where hospital admission was appropriate and her clinical presentation warranted hospital admission. Lab Data [facility] Lab Attestation statement: I reviewed the patient's lab results. My interpretation of these results are in the [facility] Rationale portion of this note. 03/15/25 07:17 03/15/25 07:17 Labs: Lab Results 03/15/25 Range/Units 07:17 WBC 7.9 (4.8-10.8) X10*3/uL RBC 4.52 (4.20-5.50) X10*6/uL Hgb 13.0 (12.0-16.0) g/dl Hct 38.8 (37.0-47.0) % MCV 85.8 (80.0-98.0) fL MCH 28.8 (27.0-33.0) pg MCHC 33.5 (31.0-35.0) g/dl RDW 13.9 (11.0-16.0) % Plt Count 319 (160-400) X10*3/uL MPV 11.5 (9.4-12.3) fL Immature Gran % (Auto) 0.4 (0.0-0.4) % Neut % (Auto) 67.4 (45-73) % Lymph % (Auto) 19.1 L (20-40) % Bollinger % (Auto) 9.0 (2-11) % Eos % (Auto) 3.7 (0-4) % Baso % (Auto) 0.4 (0-2) % Lymph # (Auto) 1.5 (1.2-4.9) X10*3/uL Bollinger # (Auto) 0.7 (0.1-1.2) X10*3/uL Eos # (Auto) 0.3 (0.0-0.4) X10*3/uL Baso # (Auto) 0.0 (0.0-0.2) X10*3/uL Abs Immat Gran (auto) 0.03 (0.00-0.03) X10*3/uL Absolute Neuts (auto) 5.3 (2.0-8.3) x10*3/uL Absolute Nucleated RBC 0.000 (0.0-0.012) X10*3/uL Nucleated RBC % (auto) 0.0 (0.0-0.2) /100WBC Sodium 141 (135-145) mmol/L Potassium 3.4 (3.3-5.1) mmol/L Chloride 110 H (96-108) mmol/L Carbon Dioxide 23 (22-29) mmol/L Anion Gap 11 L (12-20) BUN 11 (9-16) mg/dL Creatinine 0.80 (0.5-1.4) mg/dL Estim Creat Clear Calc 65.8 Estimated GFR > 60 Random Glucose 104 (60-115) mg/dL Calcium 9.5 D (8.4-10.2) mg/dL Total Bilirubin 0.6 (0.0-1.0) mg/dL AST 23 (5-31) U/L ALT 14 (0-31) U/L Alkaline Phosphatase 107 (39-117) U/L B-Natriuretic Peptide 25 (<100) pg/mL Total Protein 6.9 (6.5-8.0) g/dL Albumin 4.4 (3.5-5.0) g/dL Independent Interpretation I performed an independent interpretation of an: Plain X-Ray Interpretation: My interpretation is in agreement with the radiologist's impression of this imaging study. L EXAMINATION: XR FOOT, RIGHT CLINICAL INFORMATION: swelling pain COMPARISON: None available. TECHNIQUE: AP, lateral, and oblique views of the right foot. FINDINGS: No acute cortical disruption. No gross malalignment. Degenerative changes in the first tarsometatarsal joint. No lytic or blastic lesions. Small spur, calcaneus. No subcutaneous emphysema. No gross joint effusion. Prominent soft tissues in the distal dorsal aspect of the foot. XR/XR foot RT min 3V IMPRESSION: Soft tissue edema without subcutaneous emphysema. No acute fracture or dislocation. No osteomyelitis on x-ray. Electronically signed by: Michael Johnston MD 03/15/2025 08:00 AM EDT Dictated By: Michael Woodard MD Signed By: Electronically signed by Michael Campa MD 03/15/25 0800 Radiology Impression Discussion of test interpretation with radiology: I have reviewed the radiologist's reading. Prescription Management I considered prescription management with: Antibiotic (patient already taking antibiotic - informed her to continue taking it) Discharge Plan Discharge Clinical Impression: Ankle pain, right Qualifiers: Chronicity: acute Qualified Code(s): M25.571 - Pain in right ankle and joints of right foot Acute foot pain Qualifiers: Laterality: right Qualified Code(s): M79.671 - Pain in right foot Gout Qualifiers: Gout site: ankle Gout etiology: unspecified cause Chronicity: acute Laterality: right Qualified Code(s): M10.9 - Gout, unspecified Patient Disposition: Home, Self-Care Instructions: Gout (ED), Low Purine Diet (ED), Swollen Ankle Joint (ED) Additional Instructions: Continue taking your antibiotic as prescribed. Begin taking your steroid as prescribed. Follow up with the orthopedic team. Follow up with your primary care provider. Return to the emergency department immediately if your symptoms worsen or if you develop any numbness, tingling, dizziness, shortness of breath, difficulty breathing, chest pain, blurry vision, loss of vision, nausea, vomiting, abdominal pain, fever, chills, back pain, or any other complaints. Please see the information below about our Patient Portal. If you are not yet enrolled in the [facility] Patient Portal, you will receive an enrollment email invitation following your visit to any [facility] setting. You may also self-enroll in the Patient Portal by visiting our website: [email or web address] The following information is required to access the Patient Portal: - Your [facility] Medical Record Number - Your personal home email address (must match what is in your electronic medical record, Registration staff can assist with this) - Name - Date of Capabilities of the Patient Portal: - Message some providers - View upcoming appointments - Access your health summary, medical history, and visit history - View current conditions and allergies - View procedure and lab results - View your medications, including guidelines, side effects, and precautions - Complete pre-appointment questionnaires requested by your provider - Ready summary reports of your office visits and procedures To access the Patient Portal Mobile Kenny, follow these directions: - Search [employer] in the Kenny Store or [employer] Store - Download the Kenny - Search for [facility] - Enter your login/password Prescriptions: No Action lorazepam 0.5 mg tablet 1 tab PO BID PRN (Reason: anxiety) lidocaine 5 % adhesive patch,medicated 1 patch topical DAILY PRN (Reason: Pain) ibuprofen 600 mg tablet 1 tab PO TID PRN (Reason: pain) levothyroxine 75 mcg Tablet 75 mcg PO DAILY cholecalciferol (vitamin D3) [Vitamin D3] 25 mcg (1,000 unit) Tablet,Chewable 25 mcg PO DAILY oxycodone 10 mg tablet 10 mg PO BID PRN (Reason: pain) Qty: 10 0RF Rx Instructions: Partial Fill upon patient request. cephalexin 500 mg capsule 500 mg PO Q8H 7 Days Qty: 21 0RF omeprazole 20 mg capsule,delayed release(DR/EC) 20 mg PO DAILY pramipexole 1 mg tablet 1 mg PO BEDTIME aspirin [Adult Aspirin Regimen] 81 mg tablet,delayed release (DR/EC) 81 mg PO DAILY atorvastatin 10 mg tablet 10 mg PO DAILY Referrals: Miguel Juan PA-C [Primary Care Provider, Internal Medicine] [facility] Orthopedic Surgeons [Provider Group] Print Language: Sinhala
[2025-03-15 08:30] VITALS: BP 114/72; PULSE 78; RESP 16; TEMP 37.1; O2SAT 97
[2025-03-15 09:12] VITALS: BP 114/72; PULSE 78; RESP 16; TEMP 37.1; O2SAT 97
== END 2025-03-15 09:12 | disposition home or self-care (01) ==
PROVIDERS: Emergency Provider Emergency Medicine; PCP Physician Assistant Surgical
DX: M25.571 Pain in right ankle and joints of right foot (principal); M10.9 Gout, unspecified; M25.471 Effusion, right ankle
CPT/HCPCS: 36415; 73630; 80053; 83880; 85025; 99283

== ENCOUNTER 2025-03-27 07:34 | Outpatient (REF) | payer OTHER, SELFPAY ==
--- NOTE | ~2025-03-27 | XR_ITS ---
EXAMINATION: XR ELBOW, RIGHT CLINICAL INFORMATION: M25.521 - Pain in right elbow COMPARISON: None available. TECHNIQUE: AP, lateral, and oblique views of the right elbow. FINDINGS: No displaced fat pad is evident at the elbow joint. Joint spaces are preserved. There is no malalignment the bony structures. No fracture line is evident. There is posterior medial soft tissue swelling. XR/XR elbow RT min 3V IMPRESSION: Posterior medial soft tissue. No acute bony abnormality. Electronically signed by: Lenny Montiel MD 03/27/2025 04:56 PM EDT
== END 2025-03-27 07:35 | disposition home or self-care (01) ==
LOC: HO.HMGCX 07:34
PROVIDERS: PCP Physician Assistant Surgical; Visit Provider Physician Assistant
DX: M70.21 Olecranon bursitis, right elbow (principal); M25.521 Pain in right elbow; M25.421 Effusion, right elbow
CPT/HCPCS: 73080

== ENCOUNTER 2025-03-27 07:34 | Outpatient (AMB) | payer OTHER, SELFPAY ==
--- OUTSIDE RECORDS SUMMARY | 2025-03-27 07:36 | XMS_ITS | Encounter Summary ---
Author Organization [facility] Address [address] [place] [address] [place] [id number] Phone Care Team Providers Care Road Cutter Name Role Phone Miguel Juan PA-C Primary Care Provider [phone] Encounter Details Date Type Department Care Team (Late st Contact Info) Description 03/12/2025 Orders Only [facility] Internal Medicine [address] [place] [address] Provider, MD Kristian [place] [address] Social History Tobacco Use Types Packs/Day Years [...] AM EDT Office Visit [facility] Internal Medicine [address] [facility] [address] Miguel Juan PA-C [address] [place] [address] [email or web address] documented as of this encounter Procedures Procedure Name Priority Date/Time Associated Diagnosis Comments OUTSIDE XR CHEST REPORT ONLY Routine 03/12/2025 4:18 PM EDT OUTSIDE XR EXTREMITY LOWER REPORT ONLY Routine 03/12/2025 4:02 PM EDT documented in this encounter Results * Outside XR??Chest Report Only (03/12/2025 4:18 PM EDT) Historical Provider MD DAUHGERTY XR CHEST Final Res ult * Outside XR Extremity Lower Report Only (03/12/2025 4:02 PM EDT) Historical Provider MD DAUGHERTY XR LOWER EXTREMITY Fi nal Result documented in this encounter Visit Diagnoses Not on filedocumented in this encounter Additional Health Concerns Assessment Noted Time PHQ-2 Depression Total Score: 0 01/23/20 25 12:24 PM EDT documented as of this encounter Care Teams Road Cutter Relationship Specialty Start Date End Date Miguel Juan PA-C [address] [place] [address] [email or web address] PCP - General Physician Shift Mgr 10/16/24 documented as of this encounter Additional Source Comments The information contained in this document represents components of the legal health record. It is not the complete legal health record.[facility]
--- NOTE | 2025-03-27 07:39 | MHC.OFFWIV ---
Intake Vital Signs 03/27/25 07:40 Height 5 ft 3 in Weight 164 lb BMI 29.0 BP 118/70 Blood Pressure Location Lt brachial Position Sitting Pulse 79 Pulse Source Pulse Oximeter Temp 97.9 F Temp Source Oral Pulse Oximetry (%) 98 Oxygen Delivery Method Room Air Intake Visit Reasons: EP-rt elbow pain & swollen Intake Note: presents with right pain elbow, swelling and bruising Patient Tobacco Use Status: Former Tobacco user Allergies gluten (Gluten) Allergy (Severe, Verified 03/27/25 07:43) Gastrointestinal Upset Penicillins Allergy (Intermediate, Verified 03/27/25 07:43) Rash Sulfa (Sulfonamide Antibiotics) Allergy (Intermediate, Verified 03/27/25 07:43) Rash Codeine Phosphate Allergy (Intermediate, Uncoded 03/15/25 07:01) Nausea Do you need a note to return to daycare/school/sports/work: No HPI HPI Comments History of Present Illness Details History - The patient is a 69-year-old female presenting with a painful, hardened area on the elbow. - Reports severe pain and discoloration in the right elbow, with no recollection of trauma. - Area is hardened with surrounding softness, slightly purple - Takes aspirin daily, history of tendinitis and poison mis dermatitis. - Previous tendinitis treatment included a boot, 3 weeks ago was on prednisone for poison mis, last took one week ago. - Visited ER twice for foot issues, previously prescribed antibiotics. Physical Exam General: Cooperative, healthy appearing, comfortable, no acute distress and well developed Orientation: Patient oriented x3 Limitations: No limitations Head: Normal to inspection Ears: Hearing grossly normal bilaterally Nose: Normal External nose present Face and sinus: Normal facial exam Mouth: normal, moist oral mucosa Eyes: Appearance normal, both eyes and all related structures Neck: Normal visual inspection and Yes full ROM Respiratory: Normal respiratory effort and able to speak in complete sentences. Skin: no rashes or lesions noted Neuro: Patient oriented x3 Extremities: moving all extremities normally, right elbow with golf ball appearance on posterior elbow, soft but palpable ball , no warmth, drainage or other signs of infection noted. slightly light purple. [facility] Medical History Transient neurological symptoms Hypersomnia Snoring Chest pain Crescendo angina Angina pectoris Hypothyroidism Low back pain COVID-19 vaccine series completed Anxiety GERD (gastroesophageal reflux disease) Celiac disease Restless leg syndrome Surgical History Hx of bilateral cataract extraction History of esophagogastroduodenoscopy (EGD) Hx of colonoscopy Hx of foot surgery Hx of tonsillectomy Hx of appendectomy History of back surgery Family History Daughter Celiac disease Social History Household Members: Children Household Members Other:: son age 17 Housing: House Are you a primary intensive care medicine specialist to a significant other at home: No Do you presently have visiting nurse or other home services: No Alcohol intake: current Alcohol intake frequency: holidays/special occasions only Patient Tobacco Use Status: Former Tobacco user Tobacco use type: Cigarette Advance Directives Date on File: 03/14/21 service: No Current occupational status: employed 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 Review of Systems Const All systems reviewed & are unremarkable except as noted in HPI and below Physical Exam Vital Signs: Last Vital Signs Temp 97.9 F 03/27/25 07:40 Pulse 79 03/27/25 07:40 BP 118/70 03/27/25 07:40 Pulse Ox 98 03/27/25 07:40 Oxygen Delivery Method Room Air 03/27/25 07:40 BMI result Body Mass Index 29.0 Assessment & Plan Assessment & Plan (1) Olecranon bursitis of right elbow: Code(s): M70.21 - Olecranon bursitis, right elbow Plan: Plan Patient was informed and verbally consented to the use of an ambient scribe for clinic note documentation during this visit Bursitis - Prescribed 40mg oral prednisone x5 days, potential joint injection if no improvement. - Advise icing several times throughout the day - Arias wrapped for relief. Medications: New prednisone 40 mg (2 x 20 mg) PO QAM 10 tabs 0RF Coding Level of Care Code New Pt Level 3 (33728) Diagnoses Olecranon bursitis of right elbow M70.21
[2025-03-27 07:40] VITALS: BP 118/70; PULSE 79; TEMP 36.6; O2SAT 98; BMI 29.0
== END 2025-03-27 08:13 | disposition home or self-care (01) ==
PROVIDERS: PCP Physician Assistant Surgical; Visit Provider Physician Assistant
DX: M70.21 Olecranon bursitis, right elbow (principal)

== ENCOUNTER → 2025-03-27 16:39 | Outpatient (BNV) | payer OTHER, SELFPAY | PROVIDERS: PCP Physician Assistant Surgical; Visit Provider Radiology Diagnostic Radiology | DX: M25.521 Pain in right elbow (principal) | CPT/HCPCS: 73080 ==

== ENCOUNTER 2025-03-30 13:54 | Outpatient (REF) | payer OTHER, SELFPAY ==
--- OUTSIDE RECORDS SUMMARY | 2025-03-30 13:58 | XMS_ITS | Encounter Summary ---
Author Organization [facility] Address [address] [place] [address] [place] [phone] Phone Care Team Providers Care Personnel Assistant Name Role Phone Miguel Juan PA-C Primary Care Provider [phone] Encounter Details Date Type Department Care Team (Late st Contact Info) Description 03/12/2025 Orders Only [facility] Internal Medicine [address] [place] [address] Provider, MD Kristian [facility] [place] [address] Social History Tobacco Use Types Packs/Day Years [...] AM EDT Office Visit [facility] Internal Medicine [address] [place] [address] Miguel Juan PA-C [address] [place] [address] [email or web address] documented as of this encounter Procedures Procedure Name Priority Date/Time Associated Diagnosis Comments OUTSIDE XR CHEST REPORT ONLY Routine 03/12/2025 4:18 PM EDT OUTSIDE XR EXTREMITY LOWER REPORT ONLY Routine 03/12/2025 4:02 PM EDT documented in this encounter Results * Outside XR??Chest Report Only (03/12/2025 4:18 PM EDT) Historical Provider MD DAUGHERTY XR CHEST Final Res ult * Outside XR Extremity Lower Report Only (03/12/2025 4:02 PM EDT) Historical Provider MD DAUGHERTY XR LOWER EXTREMITY Fi nal Result documented in this encounter Visit Diagnoses Not on filedocumented in this encounter Additional Health Concerns Assessment Noted Time PHQ-2 Depression Total Score: 0 01/23/20 25 12:24 PM EDT documented as of this encounter Care Teams Personnel Assistant Relationship Specialty Start Date End Date Miguel Juan PA-C [address] [place] [address] [email or web address] PCP - General Physician Palaeontologist 10/16/24 documented as of this encounter Additional Source Comments The information contained in this document represents components of the legal health record. It is not the complete legal health record.[facility]
[2025-03-30 16:33] LABS: Uric Acid 3.8 mg/dL (2.4-5.7)
[2025-03-31 08:33] LABS: Lyme Abs Screen <0.90 index
== END 2025-03-30 13:55 | disposition home or self-care (01) ==
LOC: HO.HMGCLDS 13:54
PROVIDERS: PCP Physician Assistant Surgical
DX: Z01.84 Encounter for antibody response examination (principal); M70.21 Olecranon bursitis, right elbow
CPT/HCPCS: 36415; 84550; 86431; 86617; 86618

== ENCOUNTER 2025-04-24 08:22 | Outpatient (AMB) | payer OTHER, SELFPAY ==
--- OUTSIDE RECORDS SUMMARY | 2020-03-16 09:25 | XMS_ITS | Encounter Summary ---
Author Organization [facility] Address [address] [employer] [facility] [address] [place] [address] Phone Care Team Providers Care Creative Producer Name Role Phone Rachna Bernard CRANE CREW SUPERVISOR Primary Care Provider [phone] Encounter Details Date Type Department Care Team (Late st Contact Info) Description 03/16/2020 9:25 AM EDT Hospital Encounter [facility] [address] [place] [address] Varsha Britton, WINERY WORKER 30 [place] [address] [email or web address] Social History Tobacco Use Types [...] EDT Office Visit [facility] [place] [facility] 40 [place] [address] Miguel Juan PA-C 40 [place] [address] [email or web address] [email or web address] documented as of this encounter Procedures Procedure [...] AM EDT No significant bony abnormality. POS [id number] Narrative 03/16/2020 9:51 AM EDT Frontal and lateral views disclose no fracture, subluxation, or other significant abnormality involving the visualized regional skeletal structures. Procedure Note Jarad Goodrich MD - 03/16/2020 Frontal and lateral views disclose no fracture, subluxation, or othersignificant abnormality involving the visualized regional skeletalstructures. IMPRESSION: No significant bony abnormality. POS [id number] Varsha Britton WINERY WORKER IMG XR UPPER EXTREMITY Final Result documented [...] documented as of this encounter Care Teams Creative Producer Relationship Specialty Start Date End Date Rachna Bernard NP [email or web address] PCP - General Family Medicine 08/18/17 11/17/23 documented as of this encounter Additional Source Comments The information contained in this document represents components of the legal health record. It is not the complete legal health record.[facility]
--- NOTE | 2025-04-24 08:25 | A.OFFVIS_ITS ---
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 The pain has been persistent and is described as sharp, radiating from the lower back to the left buttock and down the left leg, with occasional involvement of the right side. The patient reports that the pain can be severe enough to catch her breath and stop her activities. The patient has a history of facet joint disease, osteopenia, vertebrogenic disease, and multilevel neural foraminal stenosis, as identified in an MRI from 2021. She has a history of an L3-[address] Gonzalez approximately 17- 18 years ago, which was initially successful in alleviating symptoms. Physical therapy was attempted until the end of last year without significant improvement in symptoms. Patient was introduced to neuromodulation with SCS and Sprint PNS trials and implants last year and also discussed Intracept BVN ablation procedures. Patient has declined implantable devices but will review Sprint PNS trial again. The patient has declined certain interventions such as intracept ablation and spinal cord stimulation due to discomfort with having devices inserted into her body. She has previously received therapeutic facet injections at L4, L5, and S1, which provided 60-70% pain relief for about a month. The patient uses a heating pad, lidocaine patches, and pgyq-gfo-[id number] medications such as Motrin and Tylenol for pain management. - Onset: Persistent, with exacerbations - Quality: Sharp, radiating - Primary Location: Lower back - Radiation: Left buttock and left hip and leg, occasionally right buttock and right hip - Exacerbating Factors: Forward bending - Relieving Factors: Heating pad, lidocaine patches, Motrin, Tylenol - Interference: Severe pain can stop activities and catch breath - Affect: Pain impacts daily activities, causing interruptions - Analgesia: Uses heating pad, lidocaine patches, Motrin, Tylenol; previous facet injections provided temporary relief - Adverse Effects: None reported from current medications - Activities of Daily Living: Pain interrupts activities, especially when severe - Aberrant Drug Related Behaviors: None reported PRIOR 01/24/24 Dr. Serna: 68-year-old female who presents today to the office for a status post facet block. The patient reports 60?70% relief following the procedure for a month. She reviewed the details of the basi-vertebral nerve ablation, and she does not want to proceed with that. She mows her lawn and does her ADLs. She is interested in other treatment options. She reports axial low back pain that is constant. Past procedures 12/16/23: Lumbar Facet Injections, Bilateral, L4/L5, L5/S1: 60-70% relief for a month. [facility] Medical History Transient neurological symptoms Hypersomnia Snoring Chest pain Crescendo angina Angina pectoris Hypothyroidism Low back pain COVID-19 vaccine series completed Anxiety GERD (gastroesophageal reflux disease) Celiac disease Restless leg syndrome Surgical History Hx of bilateral cataract extraction History of esophagogastroduodenoscopy (EGD) Hx of colonoscopy Hx of foot surgery Hx of tonsillectomy Hx of appendectomy History of back surgery Family History Daughter Celiac disease Social History Household Members: Children Household Members Other:: son age 17 Housing: House Are you a primary palliative care nurse to a significant other at home: No Do you presently have visiting nurse or other home services: No Alcohol intake: current Alcohol intake frequency: holidays/special occasions only Patient Tobacco Use Status: Former Tobacco user Tobacco use type: Cigarette Advance Directives Date on File: 03/14/21 service: No Current occupational status: employed Current occupation: [employer] [place]/ 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 Review of Systems Const Details: - Musculoskeletal: Reports sharp, radiating low back pain; denies spasms - Neurological: Reports pain radiating to left buttock and leg, occasionally right side All systems reviewed & are unremarkable except as noted in HPI and below Physical Exam Vital Signs: Last Vital Signs Pulse 69 04/24/25 08:30 BP 131/73 04/24/25 08:30 Pulse Ox 100 04/24/25 08:30 Oxygen Delivery Method Room Air 04/24/25 08:30 BMI result Body Mass Index 29.2 General: Appears afebrile. Alert and oriented. Mood and affect appropriate. Follows and participates in conversation appropriately. Respiratory effort is unlabored. Able to transition from sit to stand unassisted. Ambulates with bilaterally normal heel strike and toe off. Able to stand and walk on toes (L5-S1) and heels (L4-L5). General: Yes no CVA tenderness Back/Spine/Pelvis Other: Patient is able to walk and stand on heels and tip toes with no difficulties demonstrating good motor tone. Normal gait, no limping. Can flex forward to 70- 75 degrees and extend to 5-10 degrees before experiencing lumbar pain. Demonstrates 5/5 strength of quadriceps bilaterally as well as flexion/dorsiflexion of bilateral feet against resistance. 2+ pedal pulses bilaterally. Straight leg rise with dorsiflexion negative bilaterally. +2 patellar and achilles reflexes bilaterally. Facet loading test positive bilaterally. Claudia sign, Vimal?s, Gaenslen, Pelvic compression and Stinchfield tests are positive bilaterally. No groin pain with I/E hip rotations. Valsalva maneuver negative. Back: no CVA tenderness Cervical Spine: cervical ROM normal, cervical muscular tenderness and No Cervical spine tenderness Thoracic/Lumbar Spine: thoracic and lumbar spine normal to inspection, Thoracic/lumbar spine scar(s), Lasegue's sign negative, straight leg raise negative bilaterally, pain with thoraco-lumbar ROM, paraspinal muscle tenderness, thoraco-lumbar ROM limited, No thoracic spinal tenderness and lumbar spinal tenderness (L4-S1) Pelvis: buttock tenderness bilaterally Sacroiliac joints: bilaterally tender to palpation Extrem General: Yes capillary refill normal, Yes no clubbing, cyanosis or edema and Yes no calf tenderness Results Reviewed Results Reviewed: 11/01/23: MR CERVICAL SPINE WITHOUT CONTRAST. MR LUMBAR SPINE WITHOUT CONTRAST. FINDINGS: CERVICAL SPINE MRI: Cervical alignment is normal. There is moderate to severe disc volume loss at C5-C6 and C6-C7. Vertebral body heights are maintained. The craniocervical junction is unremarkable. There is no bone marrow edema. There are no acute fractures. The partially imaged intracranial compartment is unremarkable. The cervical arterial flow voids are maintained. There are no significant extraspinal soft tissue findings. C2-C3: Posterior disc contour is normal. No central canal stenosis and no foraminal stenosis. C3-C4: Disc contour is normal. Mild bilateral facet arthropathy. No central canal stenosis and no foraminal stenosis. C4-C5: Disc osteophyte without central canal stenosis. Uncovertebral joint spurring and facet arthropathy result in mild right-sided foraminal encroachment. C5-C6: A shallow right paracentral disc protrusion and ligamentum flavum thickening mildly narrow the central canal. Uncovertebral joint spurring and facet arthropathy result in moderate to severe right-sided foraminal stenosis. C6-C7: Disc osteophyte mildly narrows the central canal. Uncovertebral joint spurring and facet arthropathy result in severe right and moderate left foraminal stenosis. C7-T1: Disc contour is normal. No central canal stenosis and no foraminal stenosis. LUMBAR SPINE MRI: There are 5 nonrib-bearing lumbar-type vertebral bodies. There is grade 1 retrolisthesis of L1 on L2. Lumbar alignment is otherwise normal. The vertebral body heights are maintained. There is an interbody cage at L3-L4 anteriorly. Intraosseous hemangiomas within the L4 and S1 vertebral bodies. There is no bone marrow edema. There are no acute fractures. Conus terminates at the L1-L2 level. Extrarenal pelvises bilaterally. Partially imaged fibroid uterus. L1-L2: Grade 1 retrolisthesis. Small annular disc bulge. No central canal stenosis and no foraminal stenosis. Findings unchanged. L2-L3: Disc contour is normal. No central canal stenosis and no foraminal stenosis. L3-L4: Interbody cage in place. Mild bilateral facet arthropathy. No central canal stenosis and no foraminal stenosis. L4-L5: There is a similar right lateral disc protrusion that along with advanced facet arthropathy results in similar moderate right-sided foraminal stenosis and mass effect on the extraforaminal right L4 nerve root. There is a background annular disc bulge and there is bilateral facet arthropathy and ligamentum flavum thickening. Similar narrowing of the subarticular zones with mild mass effect on the traversing L5 nerve roots bilaterally. L5-S1: Diffuse annular disc bulge and severe bilateral facet arthropathy. No central canal stenosis. Mild foraminal encroachment bilaterally. IMPRESSION: - Multilevel cervical spondylosis. Spondylitic changes result in moderate to severe right C5-C6 as well as severe right and moderate left C6-C7 foraminal stenosis. There is no severe central canal stenosis within the cervical spine. - Stable appearing multilevel lumbar spondylosis. Interbody cage again noted L3-L4. At L4-L5, a right lateral disc protrusion and advanced facet arthropathy result in similar moderate right-sided foraminal stenosis and mass effect on the extraforaminal right L4 nerve root. Spondylitic changes at L4-L5 result in similar bilateral subarticular zone stenosis with mass effect on the traversing L5 nerve roots bilaterally. Additional stable degenerative findings throughout the lumbar spine as described. - Partially imaged fibroid uterus. 08/19/23: BONE DENSITOMETRY FINDINGS: LEFT FEMUR, NECK: Current: BMD 0.824 g/cm2, Z-score -0.2, T-score -1.5, osteopenia. Baseline: BMD 0.850 g/cm2. LEFT FEMUR, TOTAL: Current: BMD 0.842 g/cm2, Z-score -0.2, T-score -1.3, osteopenia, 7.0% decrease from baseline (<5% change is not significant). Baseline: BMD 0.905 g/cm2. AP SPINE L1-L2 (excluding L3 and L4): The data of L1-L4 has been changed to exclude the L3 and L4 vertebral bodies, because degenerative sclerosis at these levels may cause overestimation of lumbar spine density. Current: BMD 0.885 g/cm2, Z-score -1.0, T-score -2.3, osteopenia, 4.1% decrease from baseline (<5% change is not significant). Baseline: BMD 0.923 g/cm2. IDENTIFIED RISK FACTORS: Menopause, height loss. HISTORY OF FRACTURE: None listed. MEDICATIONS: Vitamin D. IMPRESSION: 1. DIAGNOSIS: Osteopenia based on the lowest T-score value of -2.3 in the lumbar spine applying World Health Organization criteria. 2. 10-YEAR FRACTURE RISK PREDICTION, FRAX: Major osteoporotic fracture (clinical spine, forearm, hip or shoulder) 9.2%. Hip fracture 1.1%. 3. Treatment Recommendations: NOF guidelines recommend consideration for treatment in postmenopausal women and men age 50 and older presenting with the following: -A hip or vertebral (clinical or morphometric) fracture. -T-score less than or equal to -2.5 at the femoral neck or spine after appropriate evaluation to exclude secondary causes. -Low bone mass at the hip or spine and a 10-year fracture probability by FRAX of greater than or equal to 3% for hip fracture or greater than or equal to 20% for major osteoporotic fracture based on the [place] adapted WHO algorithm. Assessment & Plan Assessment & Plan (1) Post laminectomy syndrome: Code(s): M96.1 - Postlaminectomy syndrome, not elsewhere classified Category: Medical (2) Lumbar spondylosis: Code(s): M47.816 - Spondylosis without myelopathy or radiculopathy, lumbar region Category: Medical (3) Sacroiliac joint pain: Code(s): M53.3 - Sacrococcygeal disorders, not elsewhere classified Category: Medical Plan The plan includes considering sacroiliac joint injections as a diagnostic measures. If the sacroiliac joint injections are effective, further treatment will focus on this area; if not, the focus will shift to addressing chronic lower back with vertebrogenic, axial and post-laminectomy pain components. Medial branch blocks may be considered if sacroiliac joint injections are not successful, with the possibility of radiofrequency ablation for longer-term relief if the blocks are effective. We also reviewed Sprint PNS trial today. Schedule Bilateral Diagnostic Sacroiliac Joint Injections with local and fluoroscopy. Expectations, risks and benefits were reviewed. Patient is aware she will be contacted to schedule this procedure. All questions and concerns have been answered and patient agreed with the treatment plan. Follow up after injections and sooner as needed. Medications: Discontinued oxycodone Partial Fill upon patient request. Discontinued Reason: Patient Completed Course 10 mg PO BID PRN 10 tabs 0RF pain Patient Instructions: I discussed with the patient the potential benefits and limitations of sacroiliac joint injections and medial branch blocks, including the possibility of radiofrequency ablation for longer-term relief if the blocks are effective. We reviewed the temporary nature of the Sprint device and the patient's preference to avoid any permanent or temporary devices inside the body. The patient was informed about the need to hold aspirin for seven days before any procedures to reduce bleeding risk. - Await insurance approval for SI joint injections. Hold aspirin for seven days before injections. - Continue using heating pad, lidocaine patches, Motrin, and Tylenol for pain management. - Follow up with the clinic if pain worsens or new symptoms develop. Patient was informed and verbally consented to the use of an ambient scribe for clinic note documentation during this visit. Coding Level of Care Code Est Pt Level 4 (16658) Complex EM visit Add On G2211 Diagnoses Post laminectomy syndrome M96.1 Lumbar spondylosis M47.816 Sacroiliac joint pain M53.3
[2025-04-24 08:30] VITALS: BP 131/73; PULSE 69; O2SAT 100; BMI 29.2
--- OUTSIDE RECORDS SUMMARY | 2025-04-24 09:00 | XMS_ITS | Clinical Summary ---
Author Organization [facility] Address [address] [place] [address] Phone Care Team Providers Care Coke Burner Name Role Phone Miguel Juan PA-C Primary Care Provider [phone] Allergies Active Allergy Reactions Criticality Noted Date Comments Codeine Nausea and/or Vomiting 12/21/2017 Gluten Other (See Comments) 12/21/2017 Celiac: gets very sick per patient Oxycodone-Acetaminophen 07/04/2021 Penicillins Rash Low 12/21/2017 Sulfa (Sulfonamide Antibiotics) Rash Low 12/21/2017 Medications levothyroxine (SYNTHROID, LEVOTHROID) 75 MCG tabletIndications: Acquired hypothyroidism TAKE 1 TABLET (75 MCG TOTAL) BY MOUTH EVERY MORNING. 30 tablet 11 08/21/20 24 Active cyclobenzaprine (FLEXERIL) 10 MG tablet Take 1 tablet (10 mg total) by mouth 3 (three) times a day as needed (muscle spasm). 21 tablet 10/26/19 25 Active Additional Information Patient not taking.Reported on 03/30/2025 pramipexole (MIRAPEX) 1 MG tablet TAKE 1 TABLET (1 MG TOTAL) BY MOUTH NIGHTLY AT BEDTIME. 90 tablet 2 11/16/19 25 Active omeprazole (PRILOSEC) 20 MG capsuleIndications :Gastroesophageal reflux disease without esophagitis Take 1 capsule (20 mg total) by mouth 2 (two) times a day. 180 capsule 3 11/23/19 25 Active ibuprofen (ADVIL,MOTRIN) 600 MG tabletIndications: Chronic low back pain with left-sided sciatica TAKE ONE (1) TABLET BY MOUTH THREE (3) TIMES DAILY NEEDED FOR PAIN 60 tablet 1 01/02/20 25 Active LORazepam (ATIVAN) 0.5 MG tabletIndications: Generalized anxiety disorder TAKE 1 TABLET (0.5 MG TOTAL) BY MOUTH 2 (TWO) TIMES A DAY NEEDED FOR ANXIETY. 14 tablet 01/05/20 25 Active atorvastatin (LIPITOR) 10 MG tablet Take 1 tablet (10 mg total) by mouth daily. 90 tablet 3 01/26/20 25 Active lidocaine (LIDODERM) 5 %Indications:Chron ic bilateral low back pain with left-sided sciatica Place 1 patch onto the skin 2 (two) times a day as needed (M54.42, G89.29). Remove & Discard patch within 12 hours or as directed by MD 30 patch 01/31/20 25 Active cephalexin (KEFLEX) 500 MG capsule Take 500 mg by mouth. 03/12/20 25 Active predniSONE (DELTASONE) 20 MG tablet Take 20 mg by mouth daily. Takes a total of 40 mg 03/27/20 25 Active Active Problems Problem Noted Date Diagnosed Date Olecranon bursitis of right elbow 03/30/2025 Assessment & Plan (03/30/2025 1:58 PM EDT): Her symptoms of her right elbow swelling as well as previous imaging from when the swelling originally started likely in the setting of bursitis. Advised the patient to finish the course of prednisone as well as continue the use of compression bandage and ice to the area. Caution the use of ibuprofen given the significant bruising to the area. Given the significant swelling along the forearm as well as the significant bruising, I suspect that the bursa might have a leak/burst from the significant compression. Given that the patient continues to have significant pain and swelling without improvement on prednisone, will refer to [facility] per patient request. Also, given the significant flares of tendinitis/swelling that she has had of both her ankle and her elbow, will obtain a rheumatoid factor, Lyme panel, and uric acid to further assess. I suspect that the underlying issue aligns with arthritis. Poison mis dermatitis 03/13/2025 Assessment & Plan (03/13/2025 10:33 PM EDT): Symptoms for the last week. Reviewed keeping the area clean and dry. Use topical hydrocortisone 2.5% (has at home) for any ongoing itching on intact skin. Call if worsening or signs of secondary infection. Achilles tendinitis of right lower extremity Assessment & Plan (03/13/2025 10:33 PM EDT): Suspect Achilles tendinitis, markedly tender on palpation today. Negative xray yesterday, repeat imaging if not improving. Will rest, elevate, ice throughout the day. Continue ibuprofen. Discussed follow up at orthopedic walk in clinic for additional evaluation. Spasm of both trapezius muscles 03/13/2025 Assessment & Plan (03/13/2025 10:30 PM EDT): Recommended cyclobenzaprine 10 mg q8hr prn spasm. Reviewed medication and potential s/e. Do not take prior to driving. Call if not improving over next week Elevated C-reactive protein (CRP) 03/13/2025 Assessment & Plan (03/13/2025 10:30 PM EDT): Repeat in 2-3 weeks. Suspect elevation due to extensive dermatitis Bilateral impacted cerumen 01/25/2025 Assessment & Plan (01/25/2025 8:22 AM EDT): Patient with bilateral cerumen impaction. Ear lavage completed with success in the office today. Routine general medical exam ination at a health care facility 10/25/2024 Assessment & Plan (01/25/2025 8:11 AM EDT): Patient underwent laboratory data done at [facility]. Her labs were discussed during her office visit. She is up-to-date on her colonoscopy, mammogram and Pap smear will be completed this coming fall at [facility]. Annual physical 1 year Migraine without aura [...] up with neurology and referral placed to [facility] per patient request Urine frequency 12/14/2023 [...] left-sided sciatica 0 04/13/2023 Assessment & Plan (03/13/2025 10:29 PM EDT): Chronic, unchanged, though symptoms are significantly impacting function today. Will make f/u with either [facility] or [facility] Assessment & Plan (01/25/2025 8:09 AM EDT): Patient follows closely with [facility] and has undergone cortisone [...] (04/14/2024 9:44 AM EDT): Continue follow-up with [facility] as she notes that she prefers their office over [facility]. Does note that previous injections were helpful for recent travel to [place]. Hypothyroidism 12/21/2017 Assessment & Plan (01/25/2025 8:08 [...] 10/20/20232023 Excess skin of neck 04/13/2023 12/14/19 Intramural leiomyoma of uterus 07/16/2021 12/14/2023 Optic [...] Encounters Date Type Department Care Team Description 04/03/2025 Orders Only [facility] Internal Medicine [address] [place] [address] ProviderKristian MD 04/02/2025 Orders Only [facility] Internal Medicine [address] [place] [address] ProviderKristian MD 03/30/2025 1:00 PM EDT Office Visit [facility] Internal Medicine [address] [place] [address] Miguel Juan PA-C Carey, Samantha, PA-C Olecranon bursitis of right elbow (Primary Dx) 03/28/2025 Documentation [facility] Internal Medicine [address] [place] [address] Miguel Juan PA-C 03/28/2025 Orders Only [facility] Internal Medicine [address] [place] [address] Kristian Young MD 03/15/2025 Orders Only [facility] Internal [facility] [address] [facility] [place] [address] Kristian Young MD 03/14/2025 Orders Only [facility] Internal [facility] [address] [place] [address] Boris Roberts MD Poison mis dermatitis (Primary Dx) 03/13/2025 1:30 PM EDT Office Visit [facility] Internal [facility] [address] [place] [address] Lizett Riddle CNP Achilles tendinitis of right lower extremity (Primary Dx); Elevated C-reactive protein (CRP); Spasm of both trapezius muscles; Poison mis dermatitis; Chronic bilateral low back pain with left-sided sciatica 03/13/2025 Orders Only [facility] Internal [facility] [address] [facility] [place] [address] Kristian Young MD 03/12/2025 Orders Only [facility] Internal [facility] [address] [place] [address] Kristian Young MD 03/12/2025 Telephone [facility] Internal [facility] [address] [place] [address] Ewa Longo, ALEJANDRA Appointment 01/25/2025 7:20 AM EDT Office Visit [facility] Internal [facility] [address] [place] [address] Miguel Juan PA-C Routine general medical examination at a health care facility (Primary Dx); Mixed hyperlipidemia; Acquired hypothyroidism; Restless leg syndrome; Migraine without aura and without status migrainosus, not intractable; Chronic bilateral low back pain with left-sided sciatica; Gastroesophageal reflux disease without esophagitis; Anxiety; Bilateral impacted cerumen 01/25/2025 Documentation [facility] [address] [place], [place] [address] Miguel Juan PA-C from Last 3 Months Immunizations Immunization Administration Dates Next Due COVID-19 (Pre-06/14) Pfizer Vaccine, mRNA, PF 09/20/2020,08/30/2020 INFLUENZA, SPLIT VIRUS, TRIVALENT PF 06/17/2016 INFLUENZA, SPLIT VIRUS, TRIV ALENT W/ PRESERVATIVE IM 06/27/2014,05/24/2012 Influenza High-Dose Quadriva lent Preservative Free IM 10/20/2023 Influenza High-Dose Trivalen t Preservative Free IM 06/29/2024 Influenza Quadrivalent Prese rvative Free IM 06/15/2022,06/17/2021,06/20/2020,2018,06/10/2018 Influenza trivalent preserva tive free intradermal 05/04/2013 [...] Sign Reading Time Taken Comments Blood Pressure 124/70 03/30/2025 1:03 PM EDT Pulse 83 03/30/2025 1:03 PM EDT Temperature 36.3 C (97.3 F) 03/30/2025 1:03 PM EDT Respiratory Rate 21 03/30/2025 1:03 PM EDT Oxygen Saturation 96% 03/30/2025 1:03 PM EDT Inhaled Oxygen Concentration - - Weight 75.8 kg (167 lb 3.2 oz) 03/30/2025 1:03 P M EDT Height 160 cm (5' 2.99 ) 03/30/2025 1:03 PM EDT Body Mass Index 29.63 03/30/2025 1:03 PM EDT Plan of Treatment Upcoming Encounters Date Type Department Care Team (Late st Contact Info) Description 05/03/2025 8:00 AM EDT Office Visit [facility] Internal Medicine [address] [place] [address] Miguel Juan PA-C [address] [place] [address] [email or web address] Health Maintenance Due Date Last Done Comments COLOGUARD 2002 FIT TEST 2002 FOBT 2002 SIGMOIDOSCOPY 2002 VIRTUAL COLONOSCOPY 2002 RSV VACCINE (1 - Risk 60-74 years 1-dose series) 2017 INFLUENZA VACCINE (#1) 2025 , 10/20/2023, 06/15/2022, Additional history exists COVID-19 VACCINE ( season) 2025 09/20/2020, 08/30/2020 TSH LEVEL 01/13/2026 01/13/2025, 12/22, [...] STATUS SCREENING (Once After 26 Yrs) Completed 03/30/2025 HEPATITIS A VACCINES Aged Out No long [...] Procedure Name Priority Date/Time Associated Diagnosis Comments URIC ACID Routine 03/30/2025 3:50 PM EDT RHEUMATOID FACTOR Routine 03/30/2025 3:5 0 PM EDT LYME SCREEN WITH REFLEX TO WESTERN BLOT, BLOOD Routine 03/30/2025 3:50 PM EDT OUTSIDE LAB Routine 03/30/2025 8:06 AM EDT OUTSIDE LAB Routine 03/30/2025 8:05 AM EDT OUTSIDE XR EXTREMITY UPPER REPORT ONLY Routine 03/27/2025 7:51 AM EDT OUTSIDE XR IMAGING REPORT ONLY Routine 03/27/2025 7:46 AM EDT OUTSIDE XR IMAGING REPORT ONLY Routine 03/15/2025 8:10 AM EDT OUTSIDE POTASSIUM LEVEL Routine 03/15/2025 OUTSIDE ALT LEVEL Routine 03/15/2025 OUTSIDE SERUM CREATININE LEVEL Routine 03/15/2025 OUTSIDE XR CHEST REPORT ONLY Routine 03/12/2025 4:18 PM EDT OUTSIDE XR EXTREMITY LOWER REPORT ONLY Routine 03/12/2025 4:02 PM EDT OUTSIDE IMAGING Routine 03/12/2025 10:12 AM EDT OUTSIDE HDL Routine 01/13/2025 OUTSIDE GLUCOSE FASTING Routine 01/13/2025 OUTSIDE TSH LEVEL Routine 01/13/2025 HM MAMMOGRAPHY Routine 08/26/2024 10:07 AM EST BD DXA SCREENING Routine 08/19/2023 10:2 7 AM EST Osteopenia, unspecified location HEPATITIS C ANTIBODY, QUALITATIVE Routine 01/09/2022 3:00 PM EDT Encounter for screening for HIV COLONOSCOPY FOR RESULT ENTRY ONLY Routine 06/20/2021 from Last 3 Months or Most Recently Relevant to Health Maintenance Results * Lyme Screen with Reflex to Immunoblot, Blood (03/30/2025 3:50 PM EDT) Result [facility] Provider LAB BLOOD ORDERABLES Loren l Result * Rheumatoid factor (03/30/2025 3:50 PM EDT) Result [facility] Provider LAB BLOOD ORDERABLES Loren l Result * Uric acid (03/30/2025 3:50 PM EDT) [facility] Provider LAB BLOOD ORDERABLES Loren l Result * Outside Lab (03/30/2025 8:06 AM EDT) Only the most recent of2 resultswithin the time period is included. [facility] Provider LAB BLOOD ORDERABLES Loren l Result * Outside XR Extremity Upper Report Only (03/27/2025 7:51 AM EDT) Result [facility] Provider MD DAUGHERTY XR UPPER EXTREMITY Fi nal Result * Outside XR Imaging Report Only (03/27/2025 7:46 AM EDT) [facility] Provider MD IMG XR CHEST Final Res ult * Outside XR Imaging Report Only (03/15/2025 8:10 AM EDT) Result [facility] IMG XR CHEST Final Res ult * Outside Potassium Level (03/15/2025) Potassium level - External 3.4 3.4 - 5.0 mmol/L Result [facility] LAB BLOOD ORDERABLES Loren l Result * Outside Serum Creatinine Level (03/15/2025) Creatinine, serum - External 0.8 0.8 - 1.3 mg/dL Result [facility] LAB BLOOD ORDERABLES Loren l Result * Outside ALT Level (03/15/2025) ALT - External 14 5 - 30 U/L Result [facility] LAB BLOOD ORDERABLES Loren l Result * Outside XR??Chest Report Only (03/12/2025 4:18 PM EDT) Result [facility] IMG XR CHEST Final Res ult * Outside XR Extremity Lower Report Only (03/12/2025 4:02 PM EDT) Result [facility] IMG XR LOWER EXTREMITY Fi nal Result * Outside Imaging Report Only (03/12/2025 10:12 AM EDT) Result [facility] IMG XR CHEST Final Res ult * Outside TSH Level (01/13/2025) TSH - External 0.61 0.5 - 5 uIU/L Result [facility] LAB BLOOD ORDERABLES Loren l Result * Outside Glucose,Fasting (01/13/2025) Glucose, fasting - External 96 65 - 99 mg/dL Result [facility] LAB BLOOD ORDERABLES Loren l Result * Outside HDL (01/13/2025) HDL - External 44 40 - 80 mg/dL Historical Provider LAB BLOOD ORDERABLES Loren l Result * HM MAMMOGRAPHY FOR RESULT ENTRY ONLY (08/26/2024 10:07 AM EST) Historical Provider HEALTH MAINTENANCE Edited Result - Final * DXA Screening (08/19/2023 10:27 AM EST) Anatomical Region Laterality Modality Bone Density Bone Density Rachna Bernard NP IMG BD BONE DENSITY DEXA Final Result * Hepatitis C antibody, qualitative (01/09/2022 3:00 PM EDT) Blood Rachna Bernard NP LAB BLOOD ORDERABLES Final Resu lt [facility] [address] [place] [address] * COLONOSCOPY FOR RESULT ENTRY ONLY (06/20/2021) Historical Provider HEALTH MAINTENANCE Edited Result - Final from Last 3 Months or Most Recently Relevant to Health Maintenance Insurance [employer]ENEF[employer] ADMINISTRATORS [facility] [employer] BENEFITS ADMIN[employer]ORS [place] [employer] B[employer]EF[employer] [place] [employer] [place] [employer] ADMIN[employer]ORS [address] [place] [facility] [place] [employer] [place] [employer] [place] [employer] [place] [employer] [place] [employer] Care Teams Coke Burner Relationship Specialty Start Date End Date Miguel Juan PA-C [address] [place] [address] [email or web address] PCP - General Physician Learning And Development Consultant 10/16/24 Additional Source Comments The information contained in this document represents components of the legal health record. It is not the complete legal health record.[facility]
--- OUTSIDE RECORDS SUMMARY | 2025-04-24 09:00 | XMS_ITS | Encounter Summary ---
Author Organization [facility] Address [address] [place] [address] [place] [phone] Phone Care Team Providers Care Director Of Volunteer Services Name Role Phone Miguel Juan PA-C Primary Care Provider [phone] Encounter Details Date Type Department Care Team (Late st Contact Info) Description 03/28/2025 Orders Only [facility] Internal Medicine [address] [place] [address] Provider, MD Kristian [facility] [address] Social History Tobacco Use Types Packs/Day Years [...] AM EDT Office Visit [facility] Internal Medicine [address] [facility] [place] [address] Miguel Juan PA-C [address] [place] [address] [email or web address] documented as of this encounter Procedures Procedure Name Priority Date/Time Associated Diagnosis Comments OUTSIDE XR EXTREMITY UPPER REPORT ONLY Routine 03/27/2025 7:51 AM EDT OUTSIDE XR IMAGING REPORT ONLY Routine 03/27/2025 7:46 AM EDT documented in this encounter Results * Outside XR Extremity Upper Report Only (03/27/2025 7:51 AM EDT) Historical Provider MD DAUGHERTY XR UPPER EXTREMITY Fi nal Result * Outside XR Imaging Report Only (03/27/2025 7:46 AM EDT) Historical Provider MD DAUGHERTY XR CHEST Final Res ult documented in this encounter Visit Diagnoses Not on filedocumented in this encounter Additional Health Concerns Assessment Noted Time PHQ-2 Depression Total Score: 0 01/23/20 25 12:24 PM EDT documented as of this encounter Care Teams Director Of Volunteer Services Relationship Specialty Start Date End Date Miguel Juan PA-C [address] [place] [address] [email or web address] PCP - General Physician Lap Machine Tender 10/16/24 documented as of this encounter Additional Source Comments The information contained in this document represents components of the legal health record. It is not the complete legal health record.[facility]
--- OUTSIDE RECORDS SUMMARY | 2025-04-24 09:00 | XMS_ITS | Encounter Summary ---
Author Organization [facility] Address [address] [place] [address] [place] [address] Phone Care Team Providers Care News Production Supervisor Name Role Phone Vimal Merino MD Unavailable Rosalio Galeana MD Unavailable [phone] Rachna Bernard CASE FOLDER Unavailable [phone] Rachna Bernard CASE FOLDER Primary Care Provider Ami [facility] Primary Care Provider Miguel Juan PA-C Primary Care Provider [phone] Encounter Details Date Type Department Care Team (Latest Contact Info) Description 02/17/2018 Transcribe Orders [facility] [address] [place], [place] [id number] Heath Moy MD [address] [place] [address], [address] [place], [place] [id number] [email or web address] MS (multiple sclerosis) (Primary Dx) Social History Tobacco Use Types Packs/Day Years Used Date Smoking Tobacco: Former Smokeless Tobacco: Never Comments:quit 15-16 yrs ago Alcohol Use Standard Drinks/Week Comments Yes 0 (1 standard drink = 0.6 oz pur e alcohol) occasionally Comments Unknown Sex and Gender Information Value Date Recorded Sex Assigned at Female 09/18/2022 9:05 AM EST Legal Sex Female 9:53 PM EDT Gender Identity Female 09/18/2022 9:05 AM EST Sexual Orientation Straight 09/18/2022 9: 05 AM EST documented as of this encounter Plan of Treatment Upcoming Encounters Date Type Department Care Team (Late st Contact Info) Description 05/03/2025 8:00 AM EDT Office Visit [facility] Internal Medicine [address] [place] [address] Miguel Juan PA-C [address] [place] [address] [email or web address] documented as of this encounter Results * Miscellaneous lab test (02/17/2018 3:32 PM EDT) TESTS REQUESTED MYELIN OLIGODENDROCYTE GLYCOPROTEIN [facility] SPECIMEN/TUBE TYPE RED TOP [facility] REQUEST RECEIVED Request received. A separate order for the requested test will be generated by the laboratory. [facility] Blood 02/17/2018 3:32 PM EDT 02/17/2018 3:41 PM EDT us Heath Moy MD LAB BLOOD ORDERABLES Final R esult Performing Organization Address City/State/[facility] Co de Phone Number [facility] [address] [place] [address] documented in this encounter Visit Diagnoses Diagnosis MS (multiple sclerosis)- Primary Multiple sclerosis documented in this encounter Additional Health Concerns Infection Onset Date Last Indicated Resolved Time CoV-Risk 05/28/2020 05/28/2020 06/11/2020 1:24 AM EDT CoV-Presumed 02/26/2022 02/26/2022 03/19/2022 1:21 AM EDT CoV-Risk 07/01/2024 07/01/2024 07/12/2024 1:21 AM EST Assessment Noted Time PHQ-2 Depression Total Score: 0 02/09/20 18 3:32 PM EDT documented as of this encounter Care Teams News Production Supervisor Relationship Specialty Start Date End Date Rachna Bernard NP [address] [place] [address] [address] [place] [address] PCP - General Family Medicine 08/18/17 11/17/23 Ami Hoffman FNP [address] [facility] [address] [place] [address] PCP - General Nurse Practitioner 11/18/23 10/15/24 Miguel Juan PA-C [address] [place] [address] [email or web address] PCP - General Physician Directory Clerk 10/16/24 Vimal Merino MD [address] [place] [address] Historical [facility] Provider 06/08/17 12/07/19 Rosalio Galeana MD [address] [facility]nd [place] [address] Historical LMR Provider 06/08/17 12/07/19 Rachna Bernard NP [address] [facility] 6 [place] [address] Historical LMR Provider 06/08/17 12/07/19 documented as of this encounter Additional Source Comments The information contained in this document represents components of the legal health record. It is not the complete legal health record.[facility]
--- OUTSIDE RECORDS SUMMARY | 2025-04-24 09:01 | XMS_ITS | Encounter Summary ---
Author Organization [facility] Address [address] [place] [address] [place] [address] Phone Care Team Providers Care Web Applications Architect Name Role Phone Miguel Juan PA-C Primary Care Provider [phone] Encounter Details Date Type Department Care Team (Late st Contact Info) Description 04/03/2025 Orders Only [facility] Internal Medicine [address] [place] [address] Provider, MD Kristian [facility] [place] [address] Social History Tobacco Use Types Packs/Day Years [...] AM EDT Office Visit [facility] Internal Medicine [address] [place] [address] Miguel Juan PA-C [address] [place] [address] [email or web address] documented as of this encounter Procedures Procedure Name Priority Date/Time Associated Diagnosis Comments OUTSIDE LAB Routine 03/30/2025 8:06 AM EDT OUTSIDE LAB Routine 03/30/2025 8:05 AM EDT documented in this encounter Results * Outside Lab (03/30/2025 8:06 AM EDT) Historical Provider MD LAB BLOOD ORDERABLES Loren l Result * Outside Lab (03/30/2025 8:05 AM EDT) Historical Provider MD LAB BLOOD ORDERABLES Loren l Result documented in this encounter Visit Diagnoses Not on filedocumented in this encounter Additional Health Concerns Assessment Noted Time PHQ-2 Depression Total Score: 0 01/23/20 25 12:24 PM EDT documented as of this encounter Care Teams Web Applications Architect Relationship Specialty Start Date End Date Miguel Juan PA-C [address] [place] [address] [email or web address] PCP - General Physician Shoe Singer 10/16/24 documented as of this encounter Additional Source Comments The information contained in this document represents components of the legal health record. It is not the complete legal health record.[facility]
--- OUTSIDE RECORDS SUMMARY | 2025-04-24 09:01 | XMS_ITS | Encounter Summary ---
Author Organization [facility] Address [address] [place] [address] [place] [address] Phone Care Team Providers Care Heavy Duty Diesel Mechanic Name Role Phone Miguel Juan PA-C Primary Care Provider [phone] Encounter Details Date Type Department Care Team (Late st Contact Info) Description 04/02/2025 Orders Only [facility] Internal Medicine [address] [place] [address] Provider, MD Krist[facility] [place] [address] Social History Tobacco Use Types Packs/Day Years [...] EDT Office Visit [facility] Internal Medicine [address] [facility] [place] [address] Miguel Juan PA-C [address] [place] [address] [email or web address] documented as of this encounter Procedures Procedure Name Priority Date/Time Associated Diagnosis Comments LYME SCREEN WITH REFLEX TO WESTERN BLOT, BLOOD Routine 03/30/2025 3:50 PM EDT RHEUMATOID FACTOR Routine 03/30/2025 3:5 0 PM EDT URIC ACID Routine 03/30/2025 3:50 PM EDT documented in this encounter Results * Lyme Screen with Reflex to Immunoblot, Blood (03/30/2025 3:50 PM EDT) [facility] Provider MD LAB BLOOD ORDERABLES Loren l Result * Uric acid (03/30/2025 3:50 PM EDT) [facility] Provider MD LAB BLOOD ORDERABLES Loren l Result * Rheumatoid factor (03/30/2025 3:50 PM EDT) [facility] Provider MD LAB BLOOD ORDERABLES Loren l Result documented in this encounter Visit Diagnoses Not on filedocumented in this encounter Additional Health Concerns Assessment Noted Time PHQ-2 Depression Total Score: 0 01/23/20 25 12:24 PM EDT documented as of this encounter Care Teams Heavy Duty Diesel Mechanic Relationship Specialty Start Date End Date Miguel Juan PA-C [address] [place] [address] [email or web address] PCP - General Physician Population Health Manager 10/16/24 documented as of this encounter Additional Source Comments The information contained in this document represents components of the legal health record. It is not the complete legal health record.[facility]
--- OUTSIDE RECORDS SUMMARY | 2025-04-24 09:01 | XMS_ITS | Encounter Summary ---
Author Organization [facility] Address [address] [place] [address] [place] [address] Phone Care Team Providers Care Surfboard Designer Name Role Phone Rachna Bernard WARP DRESSER Primary Care Provider [phone] Ami Hoffman Primary Care Provider Miguel Juan PA-C Primary Care Provider [phone] Encounter Details Date Type Department Care Team (Late st Contact Info) Description 06/21/2023 Nurse Triage [facility] Internal Medicine [address] [place] [address] Rachna Bernard WARP DRESSER [address] [facility] [address] [place] [address] [email or web address] Social History Tobacco Use Types Packs/Day Years Used Date Smoking Tobacco: Former Cigarettes 0.3 21.6 1 980 - 03/23/2001 Smokeless Tobacco: Never Comments:quit 15-16 yrs ago Alcohol Use Standard Drinks/Week Comments Not Currently 0 (1 standard drink = 0.6 oz pure alcohol) no longer drinking as of 11/2021 Child or Family Care Answer Date Record ed Do you have problems with on e of the following making it difficult for you to work, study, or receive health care? No 08/18/2022 Education Answer Date Recorded Are you interested in help w ith more adult education (for example, completing high school, GED, job training, learning the Peruvian language, technical skills, or developing parenting skills)? No 08/18/2022 Food Answer Date Recorded Within the past 6 months we worried whether our food would run out before we got money to buy more. Never True 08/18/2022 Within the past 6 months the food we bought just didn't last and we didn't have enough money to get more. Never True Residential Stability Answer Date Recor ded What is your housing situation today? I have reynaldo ramírez 08/18/2022 How many times have you move d in the past 12 months? Zero (I did not move) 08/18/2022 Paying for Meds Answer Date Recorded Do you have trouble paying for medicines? No 08/18/2022 Paying Utility Bills Answer Date Record ed Do you have trouble paying y our heating or electricity bill? I choose not to answer 08/18/2022 Transportation Answer Date Recorded Has the lack of transportati on kept you from medical appointments or from getting medications? No 08/18/2022 Unemployment Answer Date Recorded Are you currently unemployed or working on a part-time or temporary basis, and looking for work? No 08/18/2022 Digital Access Answer Date Recorded No 01/13/2023 No 01/13/2023 Reliable internet access at home? Not on file 01/13/2023 Device with a working camera? Not on file Comments No Sex and Gender Information Value Date Recorded Sex Assigned at Female 09/18/2022 9:05 AM EST Legal Sex Female 9:53 PM EDT Gender Identity Female 09/18/2022 9:05 AM EST Sexual Orientation Straight 09/18/2022 9: 05 AM EST documented as of this encounter Progress Notes * Ewa Longo RN - 06/21/2023 2:36 PM EDT Images from the original note were not included. ED note regarding EKG: * Ewa Longo RN - 06/21/2023 12:25 PM EDT Reason for Disposition ??? [1] COVID-19 diagnosed by positive lab test (e.g., PCR, rapid self-test kit) AND [2] mild symptoms (e.g., cough, fever, others) AND [3] no complications or SOB Protocols used: CORONAVIRUS (COVID-19) DIAGNOSED OR [id number] Nurse Triage Encounter Note Reason for Triage Yahaira Jaeger contacted office for None Call Disposition Home Care Patient/caregiver understands and will follow disposition: Unsure Patient/caregiver understands and will follow care advice: Disposition Comments: Protocols used: Coronavirus (Covid-19) Diagnosed Or Qcwinwxeo-Tzkqr-Yz Initial Symptom Screening and Assessment IA None Care Advice Given Care Advice GENERAL CARE ADVICE FOR COVID-19 SYMPTOMS: * The symptoms are generally treated the same whether you have COVID-19, influenza or some other respiratory virus. * Cough: Use cough drops. * Feeling dehydrated: Drink extra liquids. If the air in your home is dry, use a humidifier. * Fever: For fever over 101 F (38.3 C), take acetaminophen every 4 to 6 hours (Adults 650 mg) OR ibuprofen every 6 to 8 hours (Adults 400 mg). Before taking any medicine, read all the instructions onthe package. Do not take aspirin unless your doctor has prescribed it for you. * Muscle aches, headache, and other pains: Often this comes and goes with the fever. Take acetaminophen every 4 to 6 hours (Adults 650 mg) OR ibuprofen every 6 to 8 hours (Adults 400 mg). Before taking any medicine, read all the instructions on the package. * Sore throat: Try throat lozenges, hard candy or warm chicken broth. PAIN AND FEVER MEDICINES: * For pain or fever relief, take either acetaminophen or ibuprofen. * They are ybzu-kwe-ligtqsd (OTC) drugs that help treat both fever and pain. You can buy them at the drugstore. * Treat fevers above 101 F (38.3 C). The goal of fever therapy is to bring the fever down to a comfortable level. Remember that fever medicine usually lowers fever 2 degrees F (1 - 1 1/2 degrees C). * ACETAMINOPHEN REGULAR STRENGTH TYLENOL: Take 650 mg (two 325 mg pills) by mouth every 4 to 6 hours as needed. Each Regular Strength Tylenol pill has 325 mg of acetaminophen. The most you should take each day is 3,250 mg (10 pills a day). * ACETAMINOPHEN - EXTRA STRENGTH TYLENOL: Take 1,000 mg (two 500 mg pills) every 8 hours as needed.Each Extra Strength Tylenol pill has 500 mg of acetaminophen. The most you should take each day is 3,000 mg (6 pills a day). * IBUPROFEN (E.G., MOTRIN, ADVIL): Take 400 mg (two 200 mg pills) by mouth every 6 hours. The most you should take each day is 1,200 mg (six 200 mg pills), unless your doctor has told you to take more. MILD STOMACH AND INTESTINAL SYMPTOMS DURING COVID-19 ILLNESS: * MILD NAUSEA OR VOMITING: Sip small amounts (1 tablespoon or 15 ml) of water or half-strength sports drink every 5 minutes for 8 hours. After 4 hours with no vomiting, slowly increase the amount. After no vomiting for 8 hours, slowly add in bland foods - saltine crackers, white bread, rice, mashedpotatoes. * MILD DIARRHEA: Drink clear fluids like water, half-strength strength sports drink or oral rehydration liquid (e.g., Pedialyte). Slowly start bland foods like saltine crackers, white bread, mashed potatoes, noodles, bananas, yogurt, or soup. Slowly return to a normal diet. * CHECK YOUR URINE: it should be light yellow to clear if you are getting enough fluids. Patient will call back with additional questions or if symptoms change or worsen Ewa Longo RN Reason for Disposition and Assessment documented in this encounter Plan of Treatment Upcoming Encounters Date Type Department Care Team (Late st Contact Info) Description 05/03/2025 8:00 AM EDT Office Visit [facility] [place] Internal Medicine [address] [place] [address] Miguel Juan PA-C [address] [place] [address] [email or web address] documented as of this encounter Visit Diagnoses Not on filedocumented in this encounter Additional Health Concerns Infection Onset Date Last Indicated Resolved Time CoV-Risk 07/01/2024 07/01/2024 07/12/2024 1:21 AM EST Assessment Noted Time PHQ-2 Depression Total Score: 0 08/18/20 22 3:41 PM EST documented as of this encounter Care Teams Surfboard Designer Relationship Specialty Start Date End Date Rachna Bernard WARP DRESSER PCP - General Family Medicine 08/18/17 11/17/23 Ami Hoffman FNP [address] [address] PCP - General Nurse Practitioner 11/18/23 10/15/24 Miguel Juan PA-C [address] [place] [address] PCP - General Physician Increment Manager 10/16/24 documented as of this encounter Additional Source Comments The information contained in this document represents components of the legal health record. It is not the complete legal health record.[facility]
== END 2025-04-24 09:03 | disposition home or self-care (01) ==
LOC: HO.PMC 08:23
PROVIDERS: PCP Physician Assistant Surgical; Visit Provider Nurse Practitioner Family
DX: M96.1 Postlaminectomy syndrome, not elsewhere classified (principal); M47.816 Spondylosis without myelopathy or radiculopathy, lumbar region; M53.3 Sacrococcygeal disorders, not elsewhere classified
CPT/HCPCS: 99214

== ENCOUNTER 2025-04-27 08:56 | Outpatient (AMB) | payer OTHER, SELFPAY ==
--- OUTSIDE RECORDS SUMMARY | 2020-03-16 09:25 | XMS_ITS | Encounter Summary ---
Author Organization [facility] Address [address] [employer] [facility] [address] [place] [address] Phone Care Team Providers Care Principal Database Developer Name Role Phone Rachna Bernard CABANA ATTENDANT Primary Care Provider [phone] Encounter Details Date Type Department Care Team (Late st Contact Info) Description 03/16/2020 9:25 AM EDT Hospital Encounter [facility] [address] [place] [address] Varsha Britton, SALES TRAINEE 30 [place] [address] [email or web address] Social History Tobacco Use Types Packs/Day Years [...] Care Team (Late st Contact Info) Description 05/03/2025 8:00 AM EDT Office Visit [facility] [place] [facility] 40 [place] [address] Miguel Juan PA-C 40 [place] [address] [email or web address][employer] documented as of this encounter Procedures Procedure [...] AM EDT No significant bony abnormality. POS [id number] Narrative 03/16/2020 9:51 AM EDT Frontal and lateral views disclose no fracture, subluxation, or other significant abnormality involving the visualized regional skeletal structures. Procedure Note Jarad Goodrich MD - 03/16/2020 Frontal and lateral views disclose no fracture, subluxation, or othersignificant abnormality involving the visualized regional skeletalstructures. IMPRESSION: No significant bony abnormality. POS [id number] Varsha Britton SALES TRAINEE IMG XR UPPER EXTREMITY Final Result documented [...] documented as of this encounter Care Teams Principal Database Developer Relationship Specialty Start Date End Date Rachna Bernard NP [email or web address] PCP - General Family Medicine 08/18/17 11/17/23 documented as of this encounter Additional Source Comments The information contained in this document represents components of the legal health record. It is not the complete legal health record.[facility]
--- NOTE | 2025-04-27 08:57 | A.OFFVIS_ITS ---
Vital Signs 3 04/27/25 09:12 Height 5 ft 3 in Weight 165 lb BMI 29.2 Intake Visit Reasons: New Pt - right foot/ankle pain Intake Note: Yahaira is a 70 year old female who presents today as a new patient for a evaluation of her right ankle/foot pain. Patient states her pain and swelling started on 03/09/25. Patient has gone to the ED a couple times due to the pain. She has tried icing which made her pain worse. Patient notices that her pain is worse at night. Patient tried using a SHAKIRA bandage as well with no relief. FINDINGS: No acute cortical disruption. No gross malalignment. Degenerative changes in the first tarsometatarsal joint. No lytic or blastic lesions. Small spur, calcaneus. No subcutaneous emphysema. No gross joint effusion. Prominent soft tissues in the distal dorsal aspect of the foot. XR/XR foot RT min 3V IMPRESSION: Soft tissue edema without subcutaneous emphysema. No acute fracture or dislocation. No osteomyelitis on x-ray. FINDINGS: No fracture, dislocation, or suspicious bone lesion. There is anatomical alignment. The mortise is intact. The talar dome is normal. Joint spaces are preserved. The subtalar joints appear normal. There is a small plantar calcaneal spur. No soft tissue abnormalities. XR/XR ankle RT 2V IMPRESSION: No acute bony abnormalities right ankle. Allergies gluten (Gluten) Allergy (Severe, Verified 04/27/25 09:11) Gastrointestinal Upset Penicillins Allergy (Intermediate, Verified 04/27/25 09:11) Rash Sulfa (Sulfonamide Antibiotics) Allergy (Intermediate, Verified 04/27/25 09:11) Rash Codeine Phosphate Allergy (Intermediate, Uncoded 03/15/25 07:01) Nausea Medication List - Last Reconciled 04/27/25 by Laura Ling DPM aspirin (Adult Aspirin Regimen) 81 mg PO DAILY atorvastatin 10 mg PO DAILY cephalexin 500 mg PO Q8H 7 days cholecalciferol (vitamin D3) (Vitamin D3) 25 mcg PO DAILY ibuprofen 1 tab PO TID PRN levothyroxine 75 mcg PO DAILY lidocaine 5% 1 patch topical DAILY PRN lorazepam 1 tab PO BID PRN omeprazole 20 mg PO DAILY pramipexole 1 mg PO BEDTIME prednisone 40 mg (2 x 20 mg) PO QAM HPI Comments Details: Patient is a 70-year-old female with a past medical history as seen below. Patient presents today with concerns of right ankle pain for a duration of approximately 2 months. She states the pain is moderate to severe and is localized to the lateral aspect of the ankle. She states she was seen in the ED and had x-rays done which were unremarkable. She states she was previously prescribed Keflex, prednisone, oxycodone without relief. She states she experiences an increase in pain during ambulation and activity. Pain is relieved with rest. She states ice increases the pain as well where as heat does not change the symptoms. She states she is experiencing mild soreness to the left ankle, possibly due to compensation. She denies any injury. She denies any other pedal concerns. Denies any nausea vomiting fever chills. [facility] Medical History Transient neurological symptoms Hypersomnia Snoring Chest pain Crescendo angina Angina pectoris Hypothyroidism Low back pain COVID-19 vaccine series completed Anxiety GERD (gastroesophageal reflux disease) Celiac disease Restless leg syndrome Surgical History Hx of bilateral cataract extraction History of esophagogastroduodenoscopy (EGD) Hx of colonoscopy Hx of foot surgery Hx of tonsillectomy Hx of appendectomy History of back surgery Family History Daughter Celiac disease Social History Household Members: Children Household Members Other:: son age 17 Housing: House Are you a primary school child care attendant to a significant other at home: No Do you presently have visiting nurse or other home services: No Alcohol intake: current Alcohol intake frequency: holidays/special occasions only Patient Tobacco Use Status: Former Tobacco user Tobacco use type: Cigarette Advance Directives Date on File: 03/14/21 service: No Current occupational status: employed 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 Skin turgor intact. Mild edema noted to the lateral aspects of the ankle along the lateral malleolus. No ecchymosis noted. No clinical signs of infection. Vasc: DP/PT pulses palpable. Cap refill time less than 3 seconds. Varicosities noted. Neuro: Protective sensation is grossly intact. Musculoskeletal: Pain on palpation to the right ankle along the lateral aspect of the ankle. Pain on palpation to the CFL and ATFL. No pain on palpation to the deltoid. Negative squeeze test. Pain with ankle range of motion, mostly plantar flexion. Muscle manual testing 5/5. Positive anterior drawer test. Ankle/foot/toe images: 2 1. Pain along the ATFL and CFL Results Reviewed Results Reviewed: Patient is Rh factor and ESR elevated. Imaging: Ordered right ankle MRI to be performed prior to next visit. Right foot x-rays (03/15/2025): FINDINGS: No acute cortical disruption. No gross malalignment. Degenerative changes in the first tarsometatarsal joint. No lytic or blastic lesions. Small spur, calcaneus. No subcutaneous emphysema. No gross joint effusion. Prominent soft tissues in the distal dorsal aspect of the foot. IMPRESSION: Soft tissue edema without subcutaneous emphysema. No acute fracture or dislocation. No osteomyelitis on x-ray. Right ankle x-rays (03/12/2025): FINDINGS: No fracture, dislocation, or suspicious bone lesion. There is anatomical alignment. The mortise is intact. The talar dome is normal. Joint spaces are preserved. The subtalar joints appear normal. There is a small plantar calcaneal spur. No soft tissue abnormalities. IMPRESSION: No acute bony abnormalities right ankle. Assessment & Plan Assessment & Plan (1) Acute ankle pain: Code(s): M25.579 - Pain in unspecified ankle and joints of unspecified foot Category: Medical Qualifiers: Laterality: right Qualified Code(s): M25.571 - Pain in right ankle and joints of right foot (2) Sprain of calcaneofibular ligament of right ankle, initial encounter: Code(s): S93.411A - Sprain of calcaneofibular ligament of right ankle, initial encounter Category: Medical (3) Right ankle sprain: Code(s): S93.401A - Sprain of unspecified ligament of right ankle, initial encounter Category: Medical (4) Sprain of anterior talofibular ligament of right ankle: Code(s): S93.491A - Sprain of other ligament of right ankle, initial encounter Category: Medical Plan Educated patient on diagnosis of possible sprain or tear of lateral ankle ligaments. Discussed both conservative and surgical treatment to patient. We will continue conservative treatment at this time. Ordered right ankle MRI to be performed prior to next visit. Provided patient with a lace-up ankle brace to be worn while ambulating or with activity. Patient does not need to wear the brace while resting. Patient may continue rice protocol when swelling occurs. Patient may be weight-bearing as tolerated with restrictions: Advised patient to revert to nonweightbearing if pain worsens. Discussed with patient to take meloxicam (patient has previous prescription) PRN for pain. Patient is to return to the office in 2 weeks for MRI review and re-evaluation. If pain persists or worsens we will consider physical therapy and/or possible surgical intervention. Orders: Orders 2 MR ankle RT wo/w con Today S93.401A - Sprain of unspecified ligament of right ankle, initial encounter, S93.411A - Sprain of calcaneofibular ligament of right ankle, initial encounter, S93.491A - Sprain of other ligament of right ankle, initial encounter Coding Level of Care Code New Pt Level 4 (59021) Diagnoses Acute ankle pain M25.571 Laterality: right Sprain of calcaneofibular ligament of right ankle, initial encounter S93.411A Right ankle sprain S93.401A Sprain of anterior talofibular ligament of right ankle S93.491A
[2025-04-27 09:12] VITALS: BMI 29.2
--- OUTSIDE RECORDS SUMMARY | 2025-04-27 09:35 | XMS_ITS | Encounter Summary ---
Author Organization [facility] Address [address] [place] [address] [place] [address] Phone Care Team Providers Care Docket Clerk Name Role Phone Miguel Juan PA-C Primary Care Provider [phone] Encounter Details Date Type Department Care Team (Late st Contact Info) Description 03/28/2025 Orders Only [facility] Internal Medicine [address] [place] [address] Provider, MD Kristian [facility] [place] [address] Social History Tobacco Use Types Packs/Day Years [...] AM EDT Office Visit [facility] Internal Medicine [address] [place] [address] Miguel Juan PA-C [address] [place] [address] [email or web address] documented as of this encounter [...] documented as of this encounter Care Teams Docket Clerk Relationship Specialty Start Date End Date Miguel Juan PA-C [address] [place] [address] [email or web address] PCP - General Physician Certified Dietary Manager 10/16/24 documented as of this encounter Additional Source Comments The information contained in this document represents components of the legal health record. It is not the complete legal health record.[facility]
--- OUTSIDE RECORDS SUMMARY | 2025-04-27 09:36 | XMS_ITS | Encounter Summary ---
Author Organization [facility] Address [address] [place] [address] [place] [address] Phone Care Team Providers Care Nurse School Name Role Phone Vimal Merino MD Unavailable Rosalio Galeana MD Unavailable [phone] Rachna Bernard SOCIAL SCIENCES LECTURER Unavailable [phone] Rachna Bernard SOCIAL SCIENCES LECTURER Primary Care Provider [phone] Ami Hoffman DRIVER LICENSE EXAMINER Primary Care Provider Miguel Juan PA-C Primary Care Provider [phone] Encounter Details Date Type Department Care Team (Latest Contact Info) Description 02/17/[address] [facility] Laboratory [address] [place], [place] [id number] Heath Moy MD [address] [place] [address], [address] [place], [place] [id number] [email or web address] MS (multiple [...] Visit [facility] Internal Medicine [address] [place] [address] Miguel Juan PA-C [address] [place] [address] [email or web address] documented as of this encounter Results * Miscellaneous lab test (02/17/2018 3:32 PM EDT) TESTS REQUESTED MYELIN OLIGODENDROCYTE GLYCOPROTEIN [facility] SPECIMEN/TUBE TYPE RED TOP [facility] REQUEST RECEIVED Request received. A separate order for the requested test will be generated by the laboratory. [facility] Blood 02/17/2018 3:32 PM EDT 02/17/2018 3:41 PM EDT us Heath Moy MD LAB BLOOD ORDERABLES Final R esult Performing Organization Address City/State/[facility] Co de Phone Number [facility] [address] [place] [address] documented in this encounter Visit Diagnoses Diagnosis [...] documented as of this encounter Care Teams Nurse School Relationship Specialty Start Date End Date Rachna Bernard NP [address] [place] [address] [address] [place] [address] PCP - General Family Medicine 08/18/17 11/17/23 Ami Hoffman FNP [address] [facility] [address] [place] [address] PCP - General Nurse Practitioner 11/18/23 10/15/24 Miguel Juan PA-C [address] [place] [address] PCP - General Physician Network Lead 10/16/24 Vimal Merino MD [address] [place] [address] Historical LMR Provider 06/08/17 12/07/19 Rosalio Galeana MD [address] [facility] [place] [address] Historical LMR Provider 06/08/17 12/07/19 Rachna Bernard NP [address] [facility] [address] [place] [address] Historical LMR Provider 06/08/17 12/07/19 documented as of this encounter Additional Source Comments The information contained in this document represents components of the legal health record. It is not the complete legal health record.[facility]
--- OUTSIDE RECORDS SUMMARY | 2025-04-27 09:36 | XMS_ITS | Clinical Summary ---
Author Organization [facility] Address [address] [place] [phone] Phone Care Team Providers Care General Magistrate Name Role Phone Miguel Juan PA-C Primary Care Provider [phone] Allergies Active Allergy Reactions Criticality Noted Date [...] without improvement on prednisone, will refer to [facility] per patient request. Also, given the [...] EDT): Patient underwent laboratory data done at [facility]. Her labs were discussed during her office visit. She is up-to-date on her colonoscopy, mammogram and Pap smear will be completed this coming fall at [facility]. Annual physical 1 year Migraine without [...] up with neurology and referral placed to [facility] per patient request Urine frequency 12/14/2023 [...] Will make f/u with either [facility] or [facility] Assessment & Plan (01/25/2025 8:09 AM EDT): Patient follows closely with [facility] and has undergone cortisone [...] (04/14/2024 9:44 AM EDT): Continue follow-up with [facility] as she notes that she prefers their office over [facility]. Does note that previous injections were helpful for recent travel to [place]. Hypothyroidism 12/21/2017 Assessment & Plan (01/25/2025 8:08 [...] Department Care Team Description 04/03/2025 Orders Only [facility] [address] [facility] [place] [place] [address] ProviderKristian MD 04/02/2025 Orders Only [facility] [address] [facility] [place] [address] ProviderKristian MD 03/30/2025 1:00 PM EDT Office Visit [facility] [address] [facility] [place] [address] Miguel Juan PA-C Carey, Samantha, PA-C Olecranon bursitis of right elbow (Primary Dx) 03/28/2025 Documentation [facility] [address] [facility] [place] [address] Miguel Juan PA-C 03/28/2025 Orders Only [facility] [address] [facility] [place] [address] Kristian Young MD 03/15/2025 Orders Only [facility] [address] [facility] [place] [address] Kristian Young MD 03/14/2025 Orders Only [facility] [address] [facility] [place] [address] Boris Roberts MD Poison mis dermatitis (Primary Dx) 03/13/2025 1:30 PM EDT Office Visit [facility] [address] [facility] [place] [address] Lizett Riddle CNP Achilles tendinitis of right lower extremity (Primary Dx); Elevated C-reactive protein (CRP); Spasm of both trapezius muscles; Poison mis dermatitis; Chronic bilateral low back pain with left-sided sciatica 03/13/2025 Orders Only [facility] [address] [facility] [place] [address] Kristian Young MD 03/12/2025 Orders Only [facility] [address] [facility] [place] [address] Kristian Young MD 03/12/2025 Telephone [facility] [address] [facility] [place] [address] Ewa Longo, ALEJANDRA Appointment 01/25/2025 7:20 AM EDT Office Visit [facility] [address] [facility] [place] [address] Miguel Juan PA-C Routine general medical examination at a health care facility (Primary Dx); Mixed hyperlipidemia; Acquired hypothyroidism; Restless leg syndrome; Migraine without aura and without status migrainosus, not intractable; Chronic bilateral low back pain with left-sided sciatica; Gastroesophageal reflux disease without esophagitis; Anxiety; Bilateral impacted cerumen 01/25/2025 Documentation [facility] [facility] [address] [facility] [address] [place], [place] [address] Miguel Juan PA-C from Last 3 Months [...] Description 05/03/2025 8:00 AM EDT Office Visit [facility] [address] [place] [address] Miguel Juan PA-C [address] [place] [address] [email or web address] Health Maintenance Due Date Last Done Comments [...] Immunoblot, Blood (03/30/2025 3:50 PM EDT) Result [facility] Provider LAB BLOOD ORDERABLES Loren l Result * Rheumatoid factor (03/30/2025 3:50 PM EDT) Result [facility] Provider LAB BLOOD ORDERABLES Loren l Result * Uric acid (03/30/2025 3:50 PM EDT) [facility] Provider LAB BLOOD ORDERABLES Loren l Result * Outside Lab (03/30/2025 8:06 AM EDT) Only the most recent of2 resultswithin the time period is included. [facility] Provider LAB BLOOD ORDERABLES Loren l Result * Outside XR Extremity Upper Report Only (03/27/2025 7:51 AM EDT) Result [facility] Provider MD DAUGHERTY XR UPPER EXTREMITY Fi nal Result * Outside XR Imaging Report Only (03/27/2025 7:46 AM EDT) [facility] Provider MD IMG XR CHEST Final Res ult * Outside XR Imaging Report Only (03/15/2025 8:10 AM EDT) Result [facility] IMG XR CHEST Final Res ult * Outside Potassium Level (03/15/2025) Potassium level - External 3.4 3.4 - 5.0 mmol/L Result [facility] LAB BLOOD ORDERABLES Loren l Result * Outside Serum Creatinine Level (03/15/2025) Creatinine, serum - External 0.8 0.8 - 1.3 mg/dL Result [facility] LAB BLOOD ORDERABLES Loren l Result * Outside ALT Level (03/15/2025) ALT - External 14 5 - 30 U/L Result [facility] LAB BLOOD ORDERABLES Loren l Result * Outside XR??Chest Report Only (03/12/2025 4:18 PM EDT) Result [facility] IMG XR CHEST Final Res ult * Outside XR Extremity Lower Report Only (03/12/2025 4:02 PM EDT) Result [facility] IMG XR LOWER EXTREMITY Fi nal Result * Outside Imaging Report Only (03/12/2025 10:12 AM EDT) Result [facility] IMG XR CHEST Final Res ult * Outside TSH Level (01/13/2025) TSH - External 0.61 0.5 - 5 uIU/L Result [facility] LAB BLOOD ORDERABLES Loren l Result * Outside Glucose,Fasting (01/13/2025) Glucose, fasting - External 96 65 - 99 mg/dL Result [facility] LAB BLOOD ORDERABLES Loren l Result * [...] NP LAB BLOOD ORDERABLES Final Resu lt [facility] [address] [place] [address] * COLONOSCOPY FOR RESULT ENTRY ONLY (06/20/2021) Historical Provider HEALTH MAINTENANCE Edited Result - Final from Last 3 Months or Most Recently Relevant to Health Maintenance Insurance [employer] [facility] [employer] BENEFITS [employer]MIN[employer]ORS [place] [employer]ENEF[employer]MIN[employer]ATORS [employer] B[employer]EF[employer] AD[employer] [address] [facility] [employer]MINIST[employer]MIN[employer] Care Teams General Magistrate Relationship Specialty Start Date End Date Miguel Juan PA-C [address] [place] [address] [email or web address] PCP - General Physician Plug Saw Operator 10/16/24 Additional Source Comments The information contained in this document represents components of the legal health record. It is not the complete legal health record.[facility]
--- OUTSIDE RECORDS SUMMARY | 2025-04-27 09:37 | XMS_ITS | Encounter Summary ---
Author Organization [facility] Address [address] [place] [address] [place] [phone] Phone Care Team Providers Care Fur Liner Name Role Phone Miguel Juan PA-C Primary Care Provider [phone] Encounter Details Date Type Department Care Team (Late st Contact Info) Description 04/03/2025 Orders Only [facility] [address] [place] [address] Provider, MD Kristian [facility] [place] [address] Social History Tobacco Use Types Packs/Day Years [...] AM EDT Office Visit [facility] [address] [facility] [place] [address] Miguel Juan PA-C [address] [place] [address] [email or web address] documented as of this encounter Procedures Procedure [...] documented as of this encounter Care Teams Fur Liner Relationship Specialty Start Date End Date Miguel Juan PA-C [address] [place] [address] [email or web address] PCP - General Physician Dermatology Teacher 10/16/24 documented as of this encounter Additional Source Comments The information contained in this document represents components of the legal health record. It is not the complete legal health record.[facility]
--- OUTSIDE RECORDS SUMMARY | 2025-04-27 09:39 | XMS_ITS | Encounter Summary ---
Author Organization [facility] Address [address] [place] [address] [place] [phone] Phone Care Team Providers Care Endoscopy Registered Nurse Name Role Phone Rachna Bernard MASTER FISHER Primary Care Provider Ami Hoffman Primary Care Provider Miguel Juan PA-C Primary Care Provider [phone] Encounter Details Date Type Department Care Team (Late st Contact Info) Description 06/21/2023 Nurse Triage [facility] Internal Medicine [address] [place] [address] Rachna Bernard MASTER FISHER [address] [facility] [address] [place] [address] [email or web address] Social History Tobacco Use Types Packs/Day Years [...] high school, GED, job training, learning the [place] language, technical skills, or developing parenting skills)? [...] SOB Protocols used: CORONAVIRUS (COVID-19) DIAGNOSED OR [id number] Nurse Triage Encounter Note Reason for Triage Yahaira Jaeger contacted office for None Call Disposition Home Care Patient/caregiver understands and will follow disposition: Unsure Patient/caregiver understands and will follow care advice: Disposition Comments: Protocols used: Coronavirus (Covid-19) Diagnosed Or [id number] Initial Symptom Screening and Assessment IA None [...] either acetaminophen or ibuprofen. * They are cabl-fsx-oqinqlk (OTC) drugs that help treat both fever [...] Description 05/03/2025 8:00 AM EDT Office Visit [facility] [address] [place] [address] Miguel Juan PA-C [address] [place] [address] [email or web address] documented as of this encounter Visit Diagnoses Not on filedocumented in this encounter Additional Health Concerns Infection Onset Date Last Indicated Resolved Time CoV-Risk 07/01/2024 07/01/2024 07/12/2024 1:21 AM EST Assessment Noted Time PHQ-2 Depression Total Score: 0 08/18/20 22 3:41 PM EST documented as of this encounter Care Teams Endoscopy Registered Nurse Relationship Specialty Start Date End Date Rachna Bernard MASTER FISHER PCP - General Family Medicine 08/18/17 11/17/23 Ami Hoffman FNP [address] [address] PCP - General Nurse Practitioner 11/18/23 10/15/24 Miguel Juan PA-C [address] [place] [address] PCP - General Physician Rope Walker 10/16/24 documented as of this encounter Additional Source Comments The information contained in this document represents components of the legal health record. It is not the complete legal health record.[facility]
== END 2025-04-27 09:57 | disposition home or self-care (01) ==
LOC: HO.HPODS 08:57
PROVIDERS: PCP Physician Assistant Surgical; Visit Provider Student in an Organized Health Care Education/Training Program
DX: M25.571 Pain in right ankle and joints of right foot (principal); S93.411A Sprain of calcaneofibular ligament of right ankle, initial encounter; S93.491A Sprain of other ligament of right ankle, initial encounter
CPT/HCPCS: 99204

== ENCOUNTER → 2025-05-10 17:36 | Outpatient (BNV) | payer OTHER, SELFPAY | PROVIDERS: PCP Physician Assistant Surgical; Visit Provider Radiology Diagnostic Radiology | DX: S93.411A Sprain of calcaneofibular ligament of right ankle, initial encounter (principal) | CPT/HCPCS: 73721 ==

== ENCOUNTER 2025-05-10 17:37 | Outpatient (REF) | payer OTHER, SELFPAY ==
--- OUTSIDE RECORDS SUMMARY | 2020-03-16 09:25 | XMS_ITS | Encounter Summary ---
Author Organization [facility] Address [address] [employer] [facility] [address] [place] [address] Phone Care Team Providers Care Gold Frame Assembler Name Role Phone Rachna Bernard RAILROAD CONDUCTOR Primary Care Provider [phone] Encounter Details Date Type Department Care Team (Late st Contact Info) Description 03/16/2020 9:25 AM EDT Hospital Encounter [facility] [address] [place] [address] Varsha Britton, ENZYME CHEMIST 30 [place] [address] [email or web address] Social History Tobacco Use Types Packs/Day [...] EST Office Visit [facility] [place] [facility] 40 [place] [address] Miguel Juan PA-C 40 [place] [address] [email or web address] documented as of this encounter Procedures Procedure [...] AM EDT No significant bony abnormality. POS [id number] Narrative 03/16/2020 9:51 AM EDT Frontal and lateral views disclose no fracture, subluxation, or other significant abnormality involving the visualized regional skeletal structures. Procedure Note Jarad Goodrich MD - 03/16/2020 Frontal and lateral views disclose no fracture, subluxation, or othersignificant abnormality involving the visualized regional skeletalstructures. IMPRESSION: No significant bony abnormality. POS [id number] Varsha Britton ENZYME CHEMIST IMG XR UPPER EXTREMITY Final Result documented [...] documented as of this encounter Care Teams Gold Frame Assembler Relationship Specialty Start Date End Date Rachna Bernard NP [email or web address] PCP - General Family Medicine 08/18/17 11/17/23 documented as of this encounter Additional Source Comments The information contained in this document represents components of the legal health record. It is not the complete legal health record.[facility]
--- NOTE | ~2025-05-10 | MR_ITS ---
CLINICAL HISTORY: S93.411A - Sprain of calcaneofibular ligament of right ankle, initial en... --- Additional Notes or Special Instructions: Right ankle sprain *Sprain of anterior talofibular ligament of right ankle *Sprain of calcaneofibula MR right ankle Comparison: CR/SR - XR FOOT RT MIN 3V - 03/15/25 07:13 EDT CR/SR - XR ANKLE RT 2V - 03/12/25 06:09 EDT Findings: There is edema and cystic change in the navicular bone and medial cuneiform, degenerative. Intact articulations. Mild osteophytes. Small tibiotalar and subtalar joint effusions. Normal talar dome and subtalar joint cartilage. The Achilles tendon is increased in size and signal with mild peritendinous edema. The flexor and extensor tendons are intact. Deltoid ligament is intact. There is increased signal in the calcaneofibular and anterior talofibular ligaments. Normal anterior tibiofibular, posterior tibiofibular and posterior talofibular ligaments. Plantar fascia is intact and normal in size and signal. There is a calcaneal spur. No muscular atrophy. There is edema in the musculature and subcutaneous fat. Impression: Edema and cystic change in the navicular and medial cuneiform, degenerative. Small tibiotalar and subtalar joint effusions. Achilles tendinopathy with question of interstitial tears and mild peritendinitis. Sprain of the calcaneofibular and anterior talofibular ligaments. Edema in the soft tissues. This document has been electronically signed by: Anitha Stearns MD on 05/11/2025 17:35:53
--- OUTSIDE RECORDS SUMMARY | 2025-05-10 17:40 | XMS_ITS | Clinical Summary ---
Author Organization [facility] Address [address] [place] [address] Phone Care Team Providers Care Group Social Worker Name Role Phone Miguel Juan PA-C Primary Care Provider [phone] Allergies Active Allergy Reactions Criticality Noted Date Comments Codeine Nausea and/or Vomiting 12/21/2017 Gluten Other (See Comments) 12/21/2017 Celiac: gets very sick per patient Oxycodone-Acetaminophen 07/04/2021 Penicillins Rash Low 12/21/2017 Sulfa (Sulfonamide Antibiotics) Rash Low 12/21/2017 Medications levothyroxine (SYNTHROID, LEVOTHROID) 75 MCG tabletIndications :Acquired hypothyroidism TAKE 1 TABLET (75 MCG TOTAL) BY MOUTH EVERY MORNING. 30 tablet 11 08/21/20 24 Active pramipexole (MIRAPEX) 1 MG tablet TAKE 1 TABLET (1 MG TOTAL) BY MOUTH NIGHTLY AT BEDTIME. 90 tablet 2 11/16/19 25 Active omeprazole (PRILOSEC) 20 MG capsuleIndication s:Gastroesophagea l reflux disease without esophagitis Take 1 capsule (20 mg total) by mouth 2 (two) times a day. 180 capsule 3 11/23/19 25 Active LORazepam (ATIVAN) 0.5 MG tabletIndications :Generalized anxiety disorder TAKE 1 TABLET (0.5 MG TOTAL) BY MOUTH 2 (TWO) TIMES A DAY NEEDED FOR ANXIETY. 14 tablet 01/05/20 25 Active atorvastatin (LIPITOR) 10 MG tablet Take 1 tablet (10 mg total) by mouth daily. 90 tablet 3 01/26/20 25 Active lidocaine (LIDODERM) 5 %Indications:[employer] chrissy bilateral low back pain with left-sided sciatica Place 1 patch onto the skin 2 (two) times a day as needed (M54.42, G89.29). Remove & Discard patch within 12 hours or as directed by 30 patch 01/31/20 25 Active diclofenac sodium (VOLTAREN) 75 MG EC tablet Take 1 tablet (75 mg total) by mouth 2 (two) times a day. 14 tablet 05/03/20 25 Active cyclobenzaprine (FLEXERIL) 10 MG tablet Take 1 tablet (10 mg total) by mouth 3 (three) times a day as needed (muscle spasm). 21 tablet 10/26/19 25 025 Discontinued(N o longer taking) ibuprofen (ADVIL,MOTRIN) 600 MG tabletIndications :Chronic low back pain with left-sided sciatica TAKE ONE (1) TABLET BY MOUTH THREE (3) TIMES DAILY NEEDED FOR PAIN 60 tablet 1 01/02/20 25 025 Discontinued cephalexin (KEFLEX) 500 MG capsule Take 500 mg by mouth. 03/12/20 25 025 Discontinued(N o longer taking) predniSONE (DELTASONE) 20 MG tablet Take 20 mg by mouth daily. Takes a total of 40 mg 03/27/20 025 Discontinued(N o longer taking) Active Problems Problem Noted Date Diagnosed Date Acute right ankle pain 05/03/2025 Assessment & Plan (05/03/2025 9:50 AM EDT): Patient mentions that back in January she developed right ankle pain after walking down the stairs. She denies any trauma or history of popping sensation. She was seen at the [facility] x 2 and had undergone right foot x-ray and an ultrasound of the right lower extremity which was negative. She was then started on antibiotics however she completed this but then continued to have pain. She was told that she most likely had gout and was given a walking boot of note she was seen in the office who underwent further laboratory testing and she was noted to have a positive rheumatoid factor at 21. She was given a course of prednisone for 5 days however this did not provide any relief. She was seen by at [facility] who switched her out of the boot and put her on a soft brace with an MRI pending of her right ankle and questioning a sprain. However upon physical examination she has a positive Echols test on the right and I am concerned about a partial or full tear of her Achilles tendon. Patient was advised to stop the soft brace and to be placed back in the boot until her MRI has been completed. - MRI right ankle pending evaluation -Continue right foot boot -Patient has an appointment coming up with [facility] on 05/11 patient was advised to keep that appointment -Diclofenac 75 mg p.o. twice daily with food. I did explain to the patient give this some time to see if this allows for pain relief if it does not then we will switch to meloxicam 7.5 mg daily with food. I did also explain to the patient that if these 2 medications do not work then the next step would be tramadol if needed. Olecranon bursitis of right elbow 03/30/2025 Assessment & Plan (05/03/2025 9:44 AM EDT): Patient noted to have olecranon bursitis who had been seen at urgent care and subsequently seen in our office. During that timeframe patient had undergone an x-ray which was noted to be negative she does have an appointment scheduled with [facility] on 05/11 for further evaluation. Of note her golf ball sized abnormality over the right elbow has subsided however she does have some irritation left in the forearm after the nurse practitioner from urgent care wrapped in Arias wrap too tightly and most likely secreted some fluid into her forearm. I did advise the patient that this sometimes takes some time to resolve. Assessment & Plan (03/30/2025 1:58 PM EDT): [...] without improvement on prednisone, will refer to [facility] per patient request. Also, given the significant flares of tendinitis/swelling that she has had of both her ankle and her elbow, will obtain a rheumatoid factor, Lyme panel, and uric acid to further assess. I suspect that the underlying issue aligns with arthritis. Achilles tendinitis of right lower extremity Assessment & Plan (03/13/2025 10:33 PM EDT): Suspect Achilles tendinitis, markedly tender on palpation today. Negative xray yesterday, repeat imaging if not improving. Will rest, elevate, ice throughout the day. Continue ibuprofen. Discussed follow up at orthopedic walk in clinic for additional evaluation. Routine general medical exam ination at a [facility] care facility 10/25/2024 Assessment & Plan (01/25/2025 8:11 AM EDT): Patient underwent laboratory data done at [facility]. Her labs were discussed during her office visit. She is up-to-date on her colonoscopy, mammogram and Pap smear will be completed this coming fall at [facility]. Annual physical 1 year Migraine without aura and wi thout status migrainosus, not intractable 10/25/2024 Assessment & Plan (01/25/2025 8:08 AM EDT): Patient has a history of migraines who uses ibuprofen as needed for pain. This will be continued for Gastroesophageal reflux disease without esophagi tis 10/25/2024 Assessment & Plan (01/25/2025 8:09 AM EDT): Well-controlled on omeprazole 20 mg p.o. twice daily Celiac disease 10/25/2024 Restless leg syndrome 10/25/2024 Assessment & Plan (01/25/2025 8:08 AM EDT): Patient doing well on Mirapex 1 mg nightly. This will be continued White matter abnormality on MRI of brain Assessment & Plan (01/03/2024 10:53 AM EDT): MRI/MRA performed on 12/17 showed nonspecific scattered white matter signal changes that have mildly progressed. Discussed continued follow up with neurology and referral placed to [facility] per patient request Urine frequency 12/14/2023 [...] left-sided sciatica 0 04/13/2023 Assessment & Plan (05/03/2025 9:43 AM EDT): Patient with long standing neck and back pain. She has been seen by [facility] with noted cortisone injections. She has been managing her pain with PT, ibuprofen, stretching, heat, and lidocaine patches. During her last visit in January, she asked to have her PMLA extended. Patient is a will be undergoing cortisone injections through [facility] in the upcoming weeks Assessment & Plan (03/13/2025 10:29 PM EDT): Chronic, unchanged, though symptoms are significantly impacting function today. Will make f/u with either [facility] or [facility] Assessment & Plan (01/25/2025 8:09 AM EDT): Patient follows closely with [facility] and has undergone cortisone [...] (04/14/2024 9:44 AM EDT): Continue follow-up with [facility] as she notes that she prefers their office over [facility]. Does note that previous injections were helpful for recent travel to [place]. Hypothyroidism 12/21/2017 Assessment & Plan (05/03/2025 7:53 AM EDT): Patient with a history of hypothyroidism who is well-controlled on levothyroxine 75 mcg daily. Her most recent TSH level is 0.61. We will continue her on this current dose and obtain a repeat TSH . Assessment & Plan (01/25/2025 8:08 AM EDT): Patient with a history of hypothyroidism who is well-controlled on levothyroxine 75 mcg daily. Her most recent TSH level is 0.61. We will continue her on this current dose. Mixed hyperlipidemia 12/21/2017 Assessment & Plan (05/03/2025 7:52 AM EDT): Patient was started on lipitor 10mg daily after continued elevated LDL and triglycerides despite diet and exercise. We will continue lipitor 10mg daily and repeat lipid panel Assessment & Plan (01/25/2025 8:08 AM EDT): [...] Problem Noted Date Diagnosed Date Resolved Date Poison mis dermatitis 03/13/20252024 Assessment & Plan (03/13/2025 10:33 PM EDT): Symptoms for the last week. Reviewed keeping the area clean and dry. Use topical hydrocortisone 2.5% (has at home) for any ongoing itching on intact skin. Call if worsening or signs of secondary infection. Spasm of both trapezius muscles 03/13/2025 05/03/2025 Assessment & Plan (03/13/2025 10:30 PM EDT): Recommended cyclobenzaprine 10 mg q8hr prn spasm. Reviewed medication and potential s/e. Do not take prior to driving. Call if not improving over next week Elevated C-reactive protein (CRP) 03/13/2025 05/03/2025 Assessment & Plan (03/13/2025 10:30 PM EDT): Repeat in 2-3 weeks. Suspect elevation due to extensive dermatitis Bilateral impacted cerumen 01/25/2025 0 05/03/2025 Assessment & Plan (01/25/2025 8:22 AM EDT): Patient with bilateral cerumen impaction. Ear lavage completed with success in the office today. Anxiety 10/25/2024 05/03/2025 Assessment & Plan (01/25/2025 8:10 AM EDT): Her anxiety is well-controlled with lorazepam 0.5 mg p.o. twice daily as needed. We have completed a controlled substance agreement during this office visit. [place] has been verified. We will continue current dose. Jaw pain 04/14/2024 05/03/2025 Assessment & Plan (04/14/2024 9:42 AM EDT): Continue follow-up with oral surgery as scheduled. Appointment tomorrow at 8 AM to discuss imaging results and further management Pure hypercholesterolemia 01/03/2024 Assessment & Plan (01/03/2024 [...] syndrome 12/21/2017 12/14/2023 Cervical radicular pain 12/21/201711/22 Cervicalgia 12/21/2017 05/03/2025 Chronic nonintractable headache 12/21/2017 12/14/2023 Gastroesophageal reflux dise ase without esophagitis 12/21/2017 12/14/2023 Post menopausal syndrome 12/21/2017 Restless leg syndrome 12/21/20172017 Restless legs syndrome 12/21/201712/13 Thyroid nodule 12/21/2017 12/14/2023 Vertigo 12/21/2017 07/16/2021 Osteopenia 12/21/2017 12/14/2023 Encounters Date Type Department Care Team Description 05/03/2025 8:00 AM EDT Office Visit [facility] Internal Medicine [address] [place] [id number] Miguel Juan PA-C Mixed hyperlipidemia (Primary Dx); Acquired hypothyroidism; Chronic bilateral low back pain with left-sided sciatica; Olecranon bursitis of right elbow; Acute right ankle pain 04/03/2025 Orders Only [facility] Internal Medicine [address] [facility] [place] [address] Kristian Young MD 04/02/2025 Orders Only [facility] Internal Medicine [address] [place] [id number] Kristian Young MD 03/30/2025 1:00 PM EDT Office Visit [facility] Internal Medicine [address] [facility] [place] [address] Miguel Juan PA-C Carey, Samantha, PA-C Olecranon bursitis of right elbow (Primary Dx) 03/28/2025 Documentation [facility] Internal Medicine [address] [place] [id number] Miguel Juan PA-C 03/28/2025 Orders Only [facility] Internal [facility] [address] [place] [id number] Kristian Young MD 03/15/2025 Orders Only [facility] Internal [facility] [address] [place] [id number] Kristian Young MD 03/14/2025 Orders Only [facility] Internal [facility] [address] [place], [place] [id number] Boris Roberts MD Poison mis dermatitis (Primary Dx) 03/13/2025 1:30 PM EDT Office Visit [facility] Internal [facility] [address] [facility] [place] [address] Lizett Riddle CNP Achilles tendinitis of right lower extremity (Primary Dx); Elevated C-reactive protein (CRP); Spasm of both trapezius muscles; Poison mis dermatitis; Chronic bilateral low back pain with left-sided sciatica 03/13/2025 Orders Only [facility] Internal [facility] [address] [place] [address] Kristian Young MD 03/12/2025 Orders Only [facility] Internal [facility] [address] [place] [address] Kristian Young MD 03/12/2025 Telephone [facility] Internal [facility] [address] [place] [address] Ewa Longo, ALEJANDRA Appointment from Last 3 Months Immunizations Immunization Administration Dates Next Due COVID-19 (Pre-06/14) Pfizer Vaccine, mRNA, PF 09/20/2020,08/30/2020 INFLUENZA, SPLIT VIRUS, TRIVALENT PF 06/17/2016 INFLUENZA, SPLIT VIRUS, TRIV ALENT W/ PRESERVATIVE IM 06/27/2014,05/24/2012 Influenza High-Dose Quadriva lent Preservative Free IM 10/20/2023 Influenza High-Dose Trivalen t Preservative Free IM 05/03/2025,06/29/2024 Influenza Quadrivalent Prese rvative Free IM 06/15/2022,06/17/2021,06/20/2020,2018,06/10/2018 [...] Sign Reading Time Taken Comments Blood Pressure 108/64 05/03/2025 7:47 AM EDT Pulse 65 05/03/2025 7:47 AM EDT Temperature 36.3 C (97.3 F) 03/30/2025 1:03 PM EDT Respiratory Rate 24 05/03/2025 7:47 AM EDT Oxygen Saturation 98% 05/03/2025 7:47 AM EDT Inhaled Oxygen Concentration - - Weight 75.6 kg (166 lb 9.6 oz) 05/03/2025 7:47 A M EDT Height 160 cm (5' 2.99 ) 05/03/2025 7:47 AM EDT Body Mass Index 29.52 05/03/2025 7:47 AM EDT Plan of Treatment Upcoming Encounters Date Type Department Care Team (Late st Contact Info) Description 08/09/2025 8:00 AM EST Office Visit [facility] Internal Medicine [address] [place] [address] Miguel Juan PA-C [address] [place] [address] [email or web address] Health Maintenance Due Date Last Done Comments COLOGUARD 2002 FIT TEST 2002 FOBT 2002 SIGMOIDOSCOPY 2002 VIRTUAL COLONOSCOPY 2002 RSV VACCINE (1 - Risk 60-74 years 1-dose series) 2017 COVID-19 VACCINE (2024- season) 2025 09/20/2020, 08/30/2020 TSH LEVEL 01/13/2026 [...] 08/19/2022 OSTEOPOROSIS SCREENING INITIAL (ONE-TIME) Completed 08/19/2023 INFLUENZA VACCINE Completed 05/03/2025, , 10/20/2023, Additional history exists SMOKING STATUS SCREENING (Once After 26 Yrs) Completed 05/03/2025 HEPATITIS A VACCINES Aged Out No long [...] Immunoblot, Blood (03/30/2025 3:50 PM EDT) Result [facility] LAB BLOOD ORDERABLES Loren l Result * Rheumatoid factor (03/30/2025 3:50 PM EDT) Result [facility] MD LAB BLOOD ORDERABLES Loren l Result * Uric acid (03/30/2025 3:50 PM EDT) Result [facility] LAB BLOOD ORDERABLES Loren l Result * Outside Lab (03/30/2025 8:06 AM EDT) Only the most recent of2 resultswithin the time period is included. Result [facility] LAB BLOOD ORDERABLES Loren l Result * Outside XR Extremity Upper Report Only (03/27/2025 7:51 AM EDT) Result [facility] IMG XR UPPER EXTREMITY Fi nal Result * Outside XR Imaging Report Only (03/27/2025 7:46 AM EDT) Result [facility] IMG XR CHEST Final Res ult * Outside XR Imaging Report Only (03/15/2025 8:10 AM EDT) Result [facility] IMG XR CHEST Final Res ult * Outside Potassium Level (03/15/2025) Potassium level - External 3.4 3.4 - 5.0 mmol/L Result [facility] LAB BLOOD ORDERABLES Loren l Result * Outside Serum Creatinine Level (03/15/2025) Creatinine, serum - External 0.8 0.8 - 1.3 mg/dL Result [facility] LAB BLOOD ORDERABLES Loren l Result * Outside ALT Level (03/15/2025) ALT - External 14 5 - 30 U/L Result [facility] LAB BLOOD ORDERABLES Loren l Result * Outside XR??Chest Report Only (03/12/2025 4:18 PM EDT) Result [facility] Provider IMG XR CHEST Final Res ult * Outside XR Extremity Lower Report Only (03/12/2025 4:02 PM EDT) Result [facility] Provider IMG XR LOWER EXTREMITY Fi nal Result * Outside Imaging Report Only (03/12/2025 10:12 AM EDT) Result [facility] IMG XR CHEST Final Res ult * Outside TSH Level (01/13/2025) Pathologist [facility] TSH - External 0.61 0.5 - 5 uIU/L Result [facility] LAB BLOOD ORDERABLES Loren l Result * Outside Glucose,Fasting (01/13/2025) Pathologist [facility] Glucose, fasting - External 96 65 - 99 mg/dL Result [facility] LAB BLOOD ORDERABLES Loren l Result * Outside HDL (01/13/2025) [facility] HDL - External 44 40 - 80 mg/dL Result [facility] LAB BLOOD ORDERABLES Loren l Result * HM MAMMOGRAPHY FOR RESULT ENTRY ONLY (08/26/2024 10:07 AM EST) Result [facility] HEALTH MAINTENANCE Edited Result - Final * DXA Screening (08/19/2023 10:27 AM EST) Anatomical Region Laterality Modality Bone Density Bone Density Result [facility] Rachna Bernard LOAN SERVICES PROFESSIONAL IMG BD BONE DENSITY DEXA Final Result * Hepatitis C antibody, qualitative (01/09/2022 3:00 PM EDT) Blood Rachna Bernard NP LAB BLOOD ORDERABLES Final Resu lt [facility] [address] [place], [place] [id number] * COLONOSCOPY FOR RESULT ENTRY ONLY (06/20/2021) Historical Provider HEALTH MAINTENANCE Edited Result - Final from Last 3 Months or Most Recently Relevant to Health Maintenance Insurance Multiply ADMIN[employer]ATORS Mult[employer] ADMIN[employer]AT[employer]EFITS ADMINISTRATORS [employer]EFITS [employer]MINIST[employer]ATORS [employer] BENEFITS ADMINISTRATORS [employer] BENEFITS ADMINISTRATORS [employer]EFITS ADMINISTRAT[employer] SARL BENEFITS ADMINISTRATORS [facility] BENEFITS ADMINISTRATORS Care Teams Group Social Worker Relationship Specialty Start Date End Date Miguel Juan PA-C [address] [place] [address] [email or web address] PCP - General Physician [place] Supervisor 10/16/24 Additional Source Comments The information contained in this document represents components of the legal health record. It is not the complete legal health record.[facility]
--- OUTSIDE RECORDS SUMMARY | 2025-05-10 17:40 | XMS_ITS | Encounter Summary ---
Author Organization [facility] Address [address] [place] [address] [place] [phone] Phone Care Team Providers Care Dental Chairside Assistant Name Role Phone Vimal Merino MD Unavailable [phone] Rosalio Galeana MD Unavailable [phone] Rachna Bernard SILK SCREEN PRINTER Unavailable [phone] Rachna Bernard SILK SCREEN PRINTER Primary Care Provider Ami Hoffman [employer] STAGE TE[employer]ER Primary Care Provider Miguel Juan PA-C Primary Care Provider [phone] Encounter Details Date Type Department Care Team (Latest Contact Info) Description 02/17/2018 Transcribe Orders [facility] Laboratory [address] [place], [place] [id number] Heath Moy MD [address] [place] [address], [address] [place], [place] [id number] [email or web address] MS (multiple sclerosis) (Primary Dx) Social [...] Description 08/09/2025 8:00 AM EST Office Visit [facility] Internal Medicine [address] [place] [address] Miguel Juan PA-C [address] [place] [address] [email or web address] documented as of this encounter Results * Miscellaneous lab test (02/17/2018 3:32 PM EDT) TESTS REQUESTED MYELIN OLIGODENDROCYTE GLYCOPROTEIN [facility] SPECIMEN/TUBE TYPE RED TOP [facility] REQUEST RECEIVED Request received. A separate order for the requested test will be generated by the laboratory. [facility] Blood 02/17/2018 3:32 PM EDT 02/17/2018 3:41 PM EDT us Heath Moy MD LAB BLOOD ORDERABLES Final R esult Performing Organization Address City/State/[facility] Co de Phone Number [facility] [address] [place] [address] documented in this encounter Visit Diagnoses Diagnosis MS (multiple sclerosis)- Primary Multiple sclerosis documented in this encounter Additional Health Concerns Infection Onset Date Last Indicated Resolved Time CoV-Risk 05/28/2020 05/28/2020 06/11/2020 1:24 AM EDT CoV-Presumed 02/26/2022 02/26/2022 03/19/2022 1:21 AM EDT CoV-Risk 07/01/2024 07/01/2024 07/12/2024 1:21 AM EST Assessment Noted Time PHQ-2 Depression Total Score: 0 02/09/20 3:32 PM EDT documented as of this encounter Care Teams Dental Chairside Assistant Relationship Specialty Start Date End Date Rachna Bernard NP [address] [facility] [address] [place] [address] PCP - General Family Medicine 08/18/17 11/17/23 Ami Hoffman FNP [address] [facility] [address] [place] [address] PCP - General Nurse Practitioner 11/18/23 10/15/24 Miguel Juan PA-C [address] [place] [address] PCP - General Physician Box Annealer 10/16/24 Vimal Merino MD [address] [place] [address] Historical LMR Provider 06/08/17 12/07/19 Rosalio Galeana MD [address] [facility] [place] [address] Historical LMR Provider 06/08/17 12/07/19 Rachna Bernard NP [address] [facility] [address] [place] [address] Historical LMR Provider 06/08/17 12/07/19 documented as of this encounter Additional Source Comments The information contained in this document represents components of the legal health record. It is not the complete legal health record.[facility]
--- OUTSIDE RECORDS SUMMARY | 2025-05-10 17:40 | XMS_ITS | Encounter Summary ---
Author Organization [facility] Address [address] [place] [address] [place] [address] Phone Care Team Providers Care Admissions Representative Name Role Phone Rachna Bernard CREDIT AUTHORIZER Primary Care Provider Ami Hoffman Primary Care Provider Miguel Juan PA-C Primary Care Provider [phone] Encounter Details Date Type Department Care Team (Late st Contact Info) Description 06/21/2023 Nurse Triage [facility] Internal Medicine [address] [place] [address] Rachna Bernard CREDIT AUTHORIZER [address] [facility] [address] [place] [address] [email or web address] Social History Tobacco Use Types Packs/Day Years [...] high school, GED, job training, learning the Congolese language, technical skills, or developing parenting skills)? [...] SOB Protocols used: CORONAVIRUS (COVID-19) DIAGNOSED OR [id number] Nurse Triage Encounter Note Reason for Triage Yahaira Jaeger contacted office for None Call Disposition Home Care Patient/caregiver understands and will follow disposition: Unsure Patient/caregiver understands and will follow care advice: Disposition Comments: Protocols used: Coronavirus (Covid-19) Diagnosed Or Ueuqigrgn-Udtcv-Go Initial Symptom Screening and Assessment IA None [...] either acetaminophen or ibuprofen. * They are jcjx-sva-ujdznue (OTC) drugs that help treat both fever [...] Description 08/09/2025 8:00 AM EST Office Visit [facility] Internal Medicine [address] [place] [address] Miguel Juan PA-C 40 [place] [address] [email or web address] documented as of this encounter Visit Diagnoses Not on filedocumented in this encounter Additional Health Concerns Infection Onset Date Last Indicated Resolved Time CoV-Risk 07/01/2024 07/01/2024 07/12/2024 1:21 AM EST Assessment Noted Time PHQ-2 Depression Total Score: 0 08/18/20 22 3:41 PM EST documented as of this encounter Care Teams Admissions Representative Relationship Specialty Start Date End Date Rachna Bernard CREDIT AUTHORIZER PCP - General Family Medicine 08/18/17 11/17/23 Ami Hoffman FNP [address] [address] PCP - General Nurse Practitioner 11/18/23 10/15/24 Miguel Juan PA-C 40 [place] [address] PCP - General Physician Kai [place] 10/16/24 documented as of this encounter Additional Source Comments The information contained in this document represents components of the legal health record. It is not the complete legal health record.[facility]
== END 2025-05-10 17:38 | disposition home or self-care (01) ==
LOC: HO.MRI 17:37
PROVIDERS: PCP Physician Assistant Surgical; Visit Provider Student in an Organized Health Care Education/Training Program
DX: S93.411A Sprain of calcaneofibular ligament of right ankle, initial encounter (principal)
CPT/HCPCS: 73721

== ENCOUNTER 2025-05-11 10:34 | Outpatient (AMB) | payer OTHER, SELFPAY ==
--- OUTSIDE RECORDS SUMMARY | 2020-03-16 09:25 | XMS_ITS | Encounter Summary ---
Author Organization [facility] Address [address] [facility] [address] [place] [address] Phone Care Team Providers Care Traffic Officer Name Role Phone Rachna Bernard COMPRESSOR OPERATOR PORTABLE Primary Care Provider [phone] Encounter Details Date Type Department Care Team (Late st Contact Info) Description 03/16/2020 9:25 AM EDT Hospital Encounter [facility] [address] [place] [address] Varsha Britton, FREIGHT TALLIER 30 [place] [address] [email or web address] Social History Tobacco Use Types Packs/Day Years [...] EST Office Visit [facility] [place] [facility] 40 [place] [address] Miguel Juan PA-C 40 [place] [address] [email or web address] documented as of this encounter Procedures Procedure [...] AM EDT No significant bony abnormality. POS [id number] Narrative 03/16/2020 9:51 AM EDT Frontal and lateral views disclose no fracture, subluxation, or other significant abnormality involving the visualized regional skeletal structures. Procedure Note Jarad Goodrich MD - 03/16/2020 Frontal and lateral views disclose no fracture, subluxation, or othersignificant abnormality involving the visualized regional skeletalstructures. IMPRESSION: No significant bony abnormality. POS [id number] Varsha Britton FREIGHT TALLIER IMG XR UPPER EXTREMITY Final Result documented [...] documented as of this encounter Care Teams Traffic Officer Relationship Specialty Start Date End Date Rachna Bernard NP [email or web address] PCP - General Family Medicine 08/18/17 11/17/23 documented as of this encounter Additional Source Comments The information contained in this document represents components of the legal health record. It is not the complete legal health record.[facility]
--- NOTE | 2025-05-11 11:12 | A.OFFVIS_ITS ---
Intake Visit Reasons: New Prob: Right elbow bursitis Intake Note: Yahaira is a 70 year old 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 female who presents today for a evaluation of her right elbow pain. Patient reports ongoing pain for about 2 months. She states that her pain is worse when she is lifting something heavy, laying on her side and apply weight to the right upper extremity. Patient was seen at the walk in on 03/27/25 were they gave her a ARIAS bandage. Patient was wrapped in a ARIAS bandage very tight that it burst the lump in her elbow. Patient noticed a lot of bruising. She was prescribed 40mg oral prednisone x5 days which didn't help. Allergies gluten (Gluten) Allergy (Severe, Verified 05/11/25 11:18) Gastrointestinal Upset Penicillins Allergy (Intermediate, Verified 05/11/25 11:18) Rash Sulfa (Sulfonamide Antibiotics) Allergy (Intermediate, Verified 05/11/25 11:18) Rash Codeine Phosphate Allergy (Intermediate, Uncoded 03/15/25 07:01) Nausea HPI HPI New Prob: Right elbow bursitis: Details: Ms. Jaeger is a 70-year-old right-hand dominant female who presents to the office today for evaluation of a right elbow injury that she sustained. She reports that she presented to the walk-in clinic on 03/27/2025 where she was evaluated and treated for right elbow olecranon bursitis. She was given an Arias wrap and oral prednisone for 5 days. Eventually the bursa ruptured causing sig nificant pain in her forearm. This produced a lot of ecchymosis along the forearm in which the patient has progressing pictures that was shown to me in the office today. She notes some soreness that has continued to linger in her forearm. [facility] Medical History (Updated 05/11/25 @ 13:06 by Aaliyah Nunez PA-C) Sprain of calcaneofibular ligament of right ankle, initial encounter Sprain of anterior talofibular ligament of right ankle Right ankle sprain Transient neurological symptoms Hypersomnia Snoring Chest pain Crescendo angina Angina pectoris Hypothyroidism Low back pain COVID-19 vaccine series completed Anxiety GERD (gastroesophageal reflux disease) Celiac disease Restless leg syndrome Surgical History Hx of bilateral cataract extraction History of esophagogastroduodenoscopy (EGD) Hx of colonoscopy Hx of foot surgery Hx of tonsillectomy Hx of appendectomy History of back surgery Family History Daughter Celiac disease Social History Household Members: Children Household Members Other:: son age 17 Housing: House Are you a primary career development engineer to a significant other at home: No Do you presently have visiting nurse or other home services: No Alcohol intake: current Alcohol intake frequency: holidays/special occasions only Patient Tobacco Use Status: Former Tobacco user Tobacco use type: Cigarette Advance Directives Date on File: 03/14/21 service: No Current occupational status: employed 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 No ecchymosis, erythema, or edema. Slight tenderness to palpation over the lateral epicondyle and olecranon. Able to demonstrate full range of motion. NVI. Right hand: Normal to inspection. No ecchymosis, erythema, or edema. Able to perform full finger flexion, extension, abduction, adduction, finger cross, okay sign, and thumbs up without deficit. Able to make a closed fist. Able to flex and extend the wrist to end range with slight reproduction of pain along the lateral epicondyle. Positive Tan. Sensation intact. Capillary refill is brisk. Radial pulse intact. Psych Appearance: grossly normal Mental Status: mental status grossly normal Attitude: cooperative Assessment & Plan Assessment & Plan (1) Olecranon bursitis of right elbow: Code(s): M70.21 - Olecranon bursitis, right elbow Category: Medical (2) Lateral epicondylitis of right elbow: Code(s): M77.11 - Lateral epicondylitis, right elbow Category: Medical (3) De Quervain's tenosynovitis, right: Code(s): M65.4 - Radial styloid tenosynovitis [de Quervain] Category: Medical Plan Ms. Jaeger is a 70-year-old right-hand dominant female who presents to the office today for evaluation of a right elbow injury that she sustained. She reports that she presented to the walk-in clinic on 03/27/2025 where she was evaluated and treated for right elbow olecranon bursitis. She was given an Arias wrap and oral prednisone for 5 days. Eventually the bursa ruptured causing significant pain in her forearm. This produced a lot of ecchymosis along the forearm in which the patient has progressing pictures that was shown to me in the office today. She notes some soreness that has continued to linger in her forearm. While the office today, I have educated the patient that the patient received the correct treatment from the walk-in clinic of gentle compression of the olecranon bursitis. At this time the bursa has ruptured and she is experiencing some lingering soreness throughout the forearm. I have recommended that she try a tennis elbow brace that she can purchase [id number] with rubber instruction of use. Additionally, I have provided her with a comfort cool brace off the shelf to assist with the de Quervain tenosynovitis. Patient will continue conservative measures such as ice, heat, rest, compression and activity modification. No surgical intervention is warranted at this time. She will follow up PRN, sooner if needed. Coding Level of Care Code Est Pt Level 3 (25653) Diagnoses Olecranon bursitis of right elbow M70.21 Lateral epicondylitis of right elbow M77.11 De Quervain's tenosynovitis, right M65.4
--- OUTSIDE RECORDS SUMMARY | 2025-05-11 11:12 | XMS_ITS | Encounter Summary ---
Author Organization [facility] Address [address] [place] [address] [place] [address] Phone Care Team Providers Care Workforce Specialist Name Role Phone Vimal Merino MD Unavailable [phone] Rosalio Galeana MD Unavailable Rachna Bernard APPEALS ANALYST Unavailable [phone] Rachna Bernard APPEALS ANALYST Primary Care Provider Ami Hoffman INSTRUCTIONAL SPECIALIST Primary Care Provider Miguel Juan PA-C Primary Care Provider [phone] Encounter Details Date Type Department Care Team (Latest Contact Info) Description 02/17/2018 Transcribe Orders [facility] Laboratory [address] [place], [place] [id number] Heath Moy MD [address] [place] [address], [address] [place], [place] [id number] [email or web address] MS (multiple sclerosis) (Primary Dx) Social [...] Description 08/09/2025 8:00 AM EST Office Visit [facility] Internal Medicine [address] [place] [address] Miguel Juan PA-C 40 [place] [address] [email or web address] documented as of this encounter Results * Miscellaneous lab test (02/17/2018 3:32 PM EDT) TESTS REQUESTED MYELIN OLIGODENDROCYTE GLYCOPROTEIN [facility] SPECIMEN/TUBE TYPE RED TOP [facility] REQUEST RECEIVED Request received. A separate order for the requested test will be generated by the laboratory. [facility] Blood 02/17/2018 3:32 PM EDT 02/17/2018 3:41 PM EDT us Heath Moy MD LAB BLOOD ORDERABLES Final R esult Performing Organization Address City/State/[facility] Co de Phone Number [facility] [address] [place] [address] documented in this encounter Visit Diagnoses Diagnosis [...] documented as of this encounter Care Teams Workforce Specialist Relationship Specialty Start Date End Date Rachna Bernard NP [address] [facility] [address] [place] [address] PCP - General Family Medicine 08/18/17 11/17/23 Ami Hoffman FNP [address] [facility] [address] [place] [address] PCP - General Nurse Practitioner 11/18/23 10/15/24 Miguel Juan PA-C [address] [place] [address] PCP - General Physician Locks Inspector 10/16/24 Vimal Merino MD [address] [place] [address] Historical LMR Provider 06/08/17 12/07/19 Rosalio Galeana MD [address] [facility] [place] [address] Historical LMR Provider 06/08/17 12/07/19 Rachna Bernard NP 26 [facility] 6 [place] [address] Historical LMR Provider 06/08/17 12/07/19 documented as of this encounter Additional Source Comments The information contained in this document represents components of the legal health record. It is not the complete legal health record.[facility]
--- OUTSIDE RECORDS SUMMARY | 2025-05-11 11:12 | XMS_ITS | Clinical Summary ---
Author Organization [facility] Address [address] [place] [address] Phone Care Team Providers Care Slip Mixer Name Role Phone Miguel Juan PA-C Primary Care Provider [phone] Allergies Active Allergy Reactions Criticality Noted Date [...] 3 01/26/20 25 Active lidocaine (LIDODERM) 5 %Indications:Cook Pie chrissy bilateral low back pain with left-sided [...] popping sensation. She was seen at the [facility] x 2 and had undergone right [...] any relief. She was seen by at [facility] stonemason who switched her out of the boot [...] -Patient has an appointment coming up with [facility] on 05/11 patient was advised to [...] she does have an appointment scheduled with [facility] on 05/11 for further evaluation. Of [...] without improvement on prednisone, will refer to [facility]ics per patient request. Also, given the [...] Routine general medical exam ination at a [facility] care facility 10/25/2024 Assessment & Plan (01/25/2025 8:11 AM EDT): Patient underwent laboratory data done at [facility]. Her labs were discussed during her office visit. She is up-to-date on her colonoscopy, mammogram and Pap smear will be completed this coming fall at [facility]. Annual physical 1 year [...] up with neurology and referral placed to [facility] per patient request Urine frequency 12/14/2023 [...] back pain. She has been seen by [facility] with noted cortisone injections. She has been managing her pain with PT, ibuprofen, stretching, heat, and lidocaine patches. During her last visit in January, she asked to have her PMLA extended. Patient is a will be undergoing cortisone injections through [facility] in the upcoming weeks Assessment & Plan (03/13/2025 10:29 PM EDT): Chronic, unchanged, though symptoms are significantly impacting function today. Will make f/u with either [facility] or [facility] Assessment & Plan (01/25/2025 8:09 AM EDT): Patient follows closely with [facility] and has undergone cortisone [...] (04/14/2024 9:44 AM EDT): Continue follow-up with [facility] as she notes that she prefers their office over [facility] pain management. Does note that previous injections were helpful for recent travel to [place]. Hypothyroidism 12/21/2017 Assessment & Plan (05/03/2025 7:53 [...] Description 05/03/2025 8:00 AM EDT Office Visit [facility] Internal Medicine [address] [facility] [place] [address] Miguel Juan PA-C Mixed hyperlipidemia (Primary Dx); Acquired hypothyroidism; Chronic bilateral low back pain with left-sided sciatica; Olecranon bursitis of right elbow; Acute right ankle pain 04/03/2025 Orders Only [facility] Internal Medicine [address] [facility] [place] [address] Kristian Young MD 04/02/2025 Orders Only [facility] Internal Medicine [address] [facility] [place] [address] Kristian Young MD 03/30/2025 1:00 PM EDT Office Visit [facility] Internal Medicine [address] [facility] [place] [address] Miguel Juan PA-C Carey, Samantha, PA-C Olecranon bursitis of right elbow (Primary Dx) 03/28/2025 Documentation [facility] Internal Medicine [address] [facility] [place] [address] Miguel Juan PA-C 03/28/2025 Orders Only [facility] Internal [facility] [address] [place] [address] Kristian Young MD 03/15/2025 Orders Only [facility] Internal [facility] [address] [facility] [place] [address] Kristian Young MD 03/14/2025 Orders Only [facility] Internal [facility] [address] [place], [place] [phone] Boris Roberts MD Poison mis dermatitis (Primary Dx) 03/13/2025 1:30 PM EDT Office Visit [facility] Internal [facility] [address] [facility] [place] [address] Lizett Riddle CNP Achilles tendinitis of right lower extremity (Primary Dx); Elevated C-reactive protein (CRP); Spasm of both trapezius muscles; Poison mis dermatitis; Chronic bilateral low back pain with left-sided sciatica 03/13/2025 Orders Only [facility] Internal [facility] [address] [place] [address] Kristian Young MD 03/12/2025 Orders Only [facility] Internal [facility] [address] [place] [address] Kristian Young MD 03/12/2025 Telephone [facility] Internal [facility] [address] [place] [address] Ewa Longo, ALEJANDRA Appointment from Last 3 [...] Description 08/09/2025 8:00 AM EST Office Visit [facility] Internal Medicine [address] [place] [address] Miguel Juan PA-C [address] [place] [address] Health Maintenance Due Date Last Done Comments [...] Immunoblot, Blood (03/30/2025 3:50 PM EDT) Result [facility] LAB BLOOD ORDERABLES Loren l Result * Rheumatoid factor (03/30/2025 3:50 PM EDT) Result [facility] MD LAB BLOOD ORDERABLES Loren l Result * Uric acid (03/30/2025 3:50 PM EDT) Result [facility] LAB BLOOD ORDERABLES Loren l Result * Outside Lab (03/30/2025 8:06 AM EDT) Only the most recent of2 resultswithin the time period is included. Result [facility] LAB BLOOD ORDERABLES Loren l Result * Outside XR Extremity Upper Report Only (03/27/2025 7:51 AM EDT) Result [facility] IMG XR UPPER EXTREMITY Fi nal Result * Outside XR Imaging Report Only (03/27/2025 7:46 AM EDT) Result [facility] IMG XR CHEST Final Res ult * Outside XR Imaging Report Only (03/15/2025 8:10 AM EDT) Result [facility] IMG XR CHEST Final Res ult * Outside Potassium Level (03/15/2025) Potassium level - External 3.4 3.4 - 5.0 mmol/L Result [facility] LAB BLOOD ORDERABLES Loren l Result * Outside Serum Creatinine Level (03/15/2025) Creatinine, serum - External 0.8 0.8 - 1.3 mg/dL Result [facility] LAB BLOOD ORDERABLES Loren l Result * Outside ALT Level (03/15/2025) ALT - External 14 5 - 30 U/L Result [facility] LAB BLOOD ORDERABLES Loren l Result * Outside XR??Chest Report Only (03/12/2025 4:18 PM EDT) Result [facility] Provider IMG XR CHEST Final Res ult * Outside XR Extremity Lower Report Only (03/12/2025 4:02 PM EDT) Result [facility] Provider IMG XR LOWER EXTREMITY Fi nal Result * Outside Imaging Report Only (03/12/2025 10:12 AM EDT) Result [facility] IMG XR CHEST Final Res ult * Outside TSH Level (01/13/2025) Pathologist [facility] TSH - External 0.61 0.5 - 5 uIU/L Result [facility] LAB BLOOD ORDERABLES Loren l Result * Outside Glucose,Fasting (01/13/2025) Pathologist [facility] Glucose, fasting - External 96 65 - 99 mg/dL Result [facility] LAB BLOOD ORDERABLES Loren l Result * Outside HDL (01/13/2025) [facility] HDL - External 44 40 - 80 mg/dL Result [facility] LAB BLOOD ORDERABLES Loren l Result * HM MAMMOGRAPHY FOR RESULT ENTRY ONLY (08/26/2024 10:07 AM EST) Result [facility] HEALTH MAINTENANCE Edited Result - Final * DXA Screening (08/19/2023 10:27 AM EST) Anatomical Region Laterality Modality Bone Density Bone Density Result [facility] Rachna Bernard [facility] BD BONE DENSITY DEXA Final Result * Hepatitis C antibody, qualitative (01/09/2022 3:00 PM EDT) Blood Rachna Bernard NP LAB BLOOD ORDERABLES Final Resu lt [facility] [address] [place], [place] [id number] * COLONOSCOPY FOR RESULT ENTRY ONLY (06/20/2021) Historical Provider HEALTH MAINTENANCE Edited Result - Final from Last 3 Months or Most Recently Relevant to Health Maintenance Insurance [employer] B[employer] [facility] BENEFITS ADMINISTRATORS Care Teams Slip Mixer Relationship Specialty Start Date End Date Miguel Juan PA-C [address] [place] [address] [email or web address] PCP - General Physician Sales Order Specialist 10/16/24 Additional Source Comments The information contained in this document represents components of the legal health record. It is not the complete legal health record.[facility]
--- OUTSIDE RECORDS SUMMARY | 2025-05-11 11:12 | XMS_ITS | Encounter Summary ---
Author Organization [facility] Address [address] [place] [address] [place] [address] Phone Care Team Providers Care Engraver Automatic Name Role Phone Rachna Bernard DRYWALL CONTRACTOR Primary Care Provider Ami Hoffman Primary Care Provider Miguel Juan PA-C Primary Care Provider [phone] Encounter Details Date Type Department Care Team (Late st Contact Info) Description 06/21/2023 Nurse Triage [facility] Internal Medicine [address] [place] [address] Rachna Bernard DRYWALL CONTRACTOR [address] [facility] [address] [place] [address] [email or web address] Social History Tobacco Use Types Packs/Day Years [...] high school, GED, job training, learning the [place] language, technical skills, or developing parenting skills)? [...] SOB Protocols used: CORONAVIRUS (COVID-19) DIAGNOSED OR [id number] Nurse Triage Encounter Note Reason for Triage Yahaira Jaeger contacted office for None Call Disposition Home Care Patient/caregiver understands and will follow disposition: Unsure Patient/caregiver understands and will follow care advice: Disposition Comments: Protocols used: Coronavirus (Covid-19) Diagnosed Or Koxomjntv-Lqpjs-Bt Initial Symptom Screening and Assessment IA None [...] either acetaminophen or ibuprofen. * They are plxi-fzi-mdojthz (OTC) drugs that help treat both fever [...] Description 08/09/2025 8:00 AM EST Office Visit [facility] Internal Medicine [address] [place] [address] Miguel Juan PA-C 40 [place] [address] [email or web address] documented as of this encounter Visit Diagnoses Not on filedocumented in this encounter Additional Health Concerns Infection Onset Date Last Indicated Resolved Time CoV-Risk 07/01/2024 07/01/2024 07/12/2024 1:21 AM EST Assessment Noted Time PHQ-2 Depression Total Score: 0 08/18/20 22 3:41 PM EST documented as of this encounter Care Teams Engraver Automatic Relationship Specialty Start Date End Date Rachna Bernard DRYWALL CONTRACTOR PCP - General Family Medicine 08/18/17 11/17/23 Ami Hoffman FNP [address] [address] PCP - General Nurse Practitioner 11/18/23 10/15/24 Miguel Juan PA-C 40 [place] [address] PCP - General Physician Retort Press Operator 10/16/24 documented as of this encounter Additional Source Comments The information contained in this document represents components of the legal health record. It is not the complete legal health record.[facility]
== END 2025-05-11 12:10 | disposition home or self-care (01) ==
LOC: HO.HOS 10:34
PROVIDERS: PCP Physician Assistant Surgical; Visit Provider Physician Assistant
DX: M70.21 Olecranon bursitis, right elbow (principal); M77.11 Lateral epicondylitis, right elbow; M65.4 Radial styloid tenosynovitis [de Quervain]
CPT/HCPCS: 99213

== ENCOUNTER 2025-05-16 07:36 | Outpatient (AMB) | payer OTHER, SELFPAY ==
--- OUTSIDE RECORDS SUMMARY | 2020-03-16 09:25 | XMS_ITS | Encounter Summary ---
Author Organization [facility] Address [address] [employer] [facility] [address] [place] [address] Phone Care Team Providers Care Inside Tester Name Role Phone Rachna Bernard CONSULTING APPLICATION ENGINEER Primary Care Provider [phone] Encounter Details Date Type Department Care Team (Late st Contact Info) Description 03/16/2020 9:25 AM EDT Hospital Encounter [facility] [address] [place] [address] Varsha Britton, HUMAN RESOURCE MANAGER [address] [place] [address] [email or web address] Social History Tobacco Use Types Packs/Day Years [...] EST Office Visit [facility] [address] [place] [address] Miguel Juan PA-C 40 [place] [address] [email or web address] documented as of this encounter Procedures Procedure [...] AM EDT No significant bony abnormality. POS [id number] Narrative 03/16/2020 9:51 AM EDT Frontal and lateral views disclose no fracture, subluxation, or other significant abnormality involving the visualized regional skeletal structures. Procedure Note Jarad Goodrich MD - 03/16/2020 Frontal and lateral views disclose no fracture, subluxation, or othersignificant abnormality involving the visualized regional skeletalstructures. IMPRESSION: No significant bony abnormality. POS [id number] Varsha Britton HUMAN RESOURCE MANAGER IMG XR UPPER EXTREMITY Final Result documented [...] documented as of this encounter Care Teams Inside Tester Relationship Specialty Start Date End Date Rachna Bernard NP [email or web address] PCP - General Family Medicine 08/18/17 11/17/23 documented as of this encounter Additional Source Comments The information contained in this document represents components of the legal health record. It is not the complete legal health record.[facility]
--- OUTSIDE RECORDS SUMMARY | 2025-05-16 07:42 | XMS_ITS | Clinical Summary ---
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 Remove & Discard patch within 12 hours or as directed by 30 patch 01/31/20 25 Active diclofenac sodium (VOLTAREN) 75 MG EC tablet Take 1 tablet (75 mg total) by mouth 2 (two) times a day. 28 tablet 05/15/20 25 Active cyclobenzaprine (FLEXERIL) 10 MG tablet [...] a total of 40 mg 03/27/20 25 025 Discontinued(N o longer taking) diclofenac sodium (VOLTAREN) 75 MG EC tablet Take 1 tablet (75 mg total) by mouth 2 (two) times a day. 14 tablet 05/03/20 25 025 Discontinued(R eorder) Active Problems Problem Noted Date Diagnosed Date Acute right ankle pain 05/03/2025 Assessment & Plan (05/03/2025 9:50 AM EDT): Patient mentions that back in January she developed right ankle pain after walking down the stairs. She denies any trauma or history of popping sensation. She was seen at the [facility] x 2 and had undergone right [...] any relief. She was seen by at [facility] director of marketing operations who switched her out of the boot [...] -Patient has an appointment coming up with Monserrat Garcia on 05/11 patient was advised to keep [...] she does have an appointment scheduled with Monserrat Garcia on 05/11 for further evaluation. Of note [...] without improvement on prednisone, will refer to [facility] per patient request. Also, given the [...] Routine [facility] 10/25/2024 Assessment & Plan (01/25/2025 8:11 AM EDT): Patient underwent laboratory data done at [facility]. Her labs were discussed during her office visit. She is up-to-date on her colonoscopy, mammogram and Pap smear will be completed this coming fall at [facility]. Annual physical 1 year Migraine without [...] up with neurology and referral placed to [facility] per patient request Urine frequency 12/14/2023 [...] back pain. She has been seen by [facility] with noted cortisone injections. She has been managing her pain with PT, ibuprofen, stretching, heat, and lidocaine patches. During her last visit in January, she asked to have her PMLA extended. Patient is a will be undergoing cortisone injections through [facility] in the upcoming weeks Assessment & Plan (03/13/2025 10:29 PM EDT): Chronic, unchanged, though symptoms are significantly impacting function today. Will make f/u with either [facility] or [facility] Assessment & Plan (01/25/2025 8:09 AM EDT): Patient follows closely with [facility] and has undergone cortisone [...] (04/14/2024 9:44 AM EDT): Continue follow-up with [facility] as she notes that she prefers their office over [facility]. Does note that previous injections were helpful for recent travel to [place]. Hypothyroidism 12/21/2017 Assessment & Plan (05/03/2025 7:53 [...] Encounters Date Type Department Care Team Description 05/14/2025 Orders Only [facility] Internal Medicine [address] [facility] Justin [place] [address] Kristian Young MD 05/03/2025 8:00 AM EDT Office Visit [facility] Internal Medicine [address] [facility] [place] [address] Miguel Juan PA-C Mixed hyperlipidemia (Primary Dx); Acquired hypothyroidism; Chronic bilateral low back pain with left-sided sciatica; Olecranon bursitis of right elbow; Acute right ankle pain 04/03/2025 Orders Only [facility] Internal Medicine [address] [facility] Justin Grosslu [place] [address] Kristian Young MD 04/02/2025 Orders Only [facility] Internal Medicine [address] [place] Anderson Th[place] [address] Kristian Young MD 03/30/2025 1:00 PM EDT Office Visit [facility] Internal Medicine 40 [place] [address] Miguel Juan PA-C Carey, Samantha, PA-C Olecranon bursitis of right elbow (Primary Dx) 03/28/2025 Documentation [facility] Internal [facility] 40 [facility] [place] [address] Miguel Juan PA-C 03/28/2025 Orders Only [facility] Internal [facility] 40 [place] [address] Kristian Young MD 03/15/2025 Orders Only [facility] Internal [facility] 40 [place] [address] Kristian Young MD 03/14/2025 Orders Only [facility] Internal [facility] [address] [place] [address] Boris Roberts MD Poison mis dermatitis (Primary Dx) 03/13/2025 1:30 PM EDT Office Visit [facility] Internal [facility] 40 [place] [address] Lizett Riddle, REAL Achilles tendinitis of right lower extremity (Primary Dx); Elevated C-reactive protein (CRP); Spasm of both trapezius muscles; Poison mis dermatitis; Chronic bilateral low back pain with left-sided sciatica 03/13/2025 Orders Only [facility] Internal [facility] 40 [place], [place] [id number] Kristian Young MD 03/12/2025 Orders Only [facility] Internal [facility] 40 [place], [place] [id number] Kristian Young MD 03/12/2025 Telephone [facility] [address] [facility], [place] [id number] Ewa Longo, ALEJANDRA Appointment from Last 3 [...] Description 08/09/2025 8:00 AM EST Office Visit [facility] Internal Medicine [address] [place] [address] Miguel Juan PA-C [address] [place] [address] [email or web address] Health Maintenance Due Date Last Done Comments COLOGUARD 2002 FIT TEST 2002 FOBT 2002 SIGMOIDOSCOPY 2002 VIRTUAL COLONOSCOPY 2002 RSV VACCINE (1 - Risk 60-74 years 1-dose series) 2017 COVID-19 VACCINE ( season) 2025 09/20/2020, 08/30/2020 [...] Name Priority Date/Time Associated Diagnosis Comments OUTSIDE MR EXTREMITY LOWER REPORT ONLY Routine 05/10/2025 8:24 AM EDT URIC ACID Routine 03/30/2025 3:50 PM EDT RHEUMATOID FACTOR Routine 03/30/2025 3: 50 PM EDT LYME SCREEN WITH REFLEX TO [...] Routine 01/13/2025 OUTSIDE TSH LEVEL Routine 01/13/2025 MAMMOGRAPHY Routine 08/26/2024 10:07 AM EST BD DXA SCREENING Routine 08/19/2023 10:2 7 AM EST Osteopenia, unspecified location HEPATITIS C ANTIBODY, QUALITATIVE Routine 01/09/2022 3:00 PM EDT Encounter for screening for HIV COLONOSCOPY FOR RESULT ENTRY ONLY Routine 06/20/2021 from Last 3 Months or Most Recently Relevant to Health Maintenance Results * Outside MR Extremity Lower report Only (05/10/2025 8:24 AM EDT) Result [facility] Provider MD DAUGHERTY MR EXTREMITY Final Re sult * Lyme Screen with Reflex to Immunoblot, Blood (03/30/2025 3:50 PM EDT) [facility] Provider LAB BLOOD ORDERABLES Loren l Result * Rheumatoid factor (03/30/2025 3:50 PM EDT) [facility] Provider LAB BLOOD ORDERABLES Loren l Result * Uric acid (03/30/2025 3:50 PM EDT) [facility] Provider LAB BLOOD ORDERABLES Loren l Result * Outside Lab (03/30/2025 8:06 AM EDT) Only the most recent of2 resultswithin the time period is included. [facility] Provider LAB BLOOD ORDERABLES Loren l Result * Outside XR Extremity Upper Report Only (03/27/2025 7:51 AM EDT) [facility] Provider MD DAUGHERTY XR UPPER EXTREMITY Fi nal Result * Outside XR Imaging Report Only (03/27/2025 7:46 AM EDT) [facility] Provider MD IMG XR CHEST Final Res ult * Outside XR Imaging Report Only (03/15/2025 8:10 AM EDT) Result [facility] IMG XR CHEST Final Res ult * Outside Potassium Level (03/15/2025) Potassium level - External 3.4 3.4 - 5.0 mmol/L Result [facility] LAB BLOOD ORDERABLES Loren l Result * Outside Serum Creatinine Level (03/15/2025) Creatinine, serum - External 0.8 0.8 - 1.3 mg/dL Result [facility] LAB BLOOD ORDERABLES Loren l Result * Outside ALT Level (03/15/2025) ALT - External 14 5 - 30 U/L Result [facility] LAB BLOOD ORDERABLES Loren l Result * Outside XR??Chest Report Only (03/12/2025 4:18 PM EDT) Result [facility] IMG XR CHEST Final Res ult * Outside XR Extremity Lower Report Only (03/12/2025 4:02 PM EDT) Result [facility] IMG XR LOWER EXTREMITY Fi nal Result * Outside Imaging Report Only (03/12/2025 10:12 AM EDT) Result [facility] IMG XR CHEST Final Res ult * Outside TSH Level (01/13/2025) TSH - External 0.61 0.5 - 5 uIU/L Result [facility] LAB BLOOD ORDERABLES Loren l Result * Outside Glucose,Fasting (01/13/2025) Glucose, fasting - External 96 65 - 99 mg/dL Result [facility] LAB BLOOD ORDERABLES Loren l Result * [...] NP LAB BLOOD ORDERABLES Final Resu lt [facility] [address] [place] [address] * COLONOSCOPY FOR RESULT ENTRY ONLY (06/20/2021) Historical Provider HEALTH MAINTENANCE Edited Result - Final from Last 3 Months or Most Recently Relevant to Health Maintenance Insurance Secret Sales BLUE [employer]EF[employer]ORS [facility] BENEFITS ADMINISTRATORS [place] [employer] BENEFITS ADMINISTRATORS inDegree BENEFITS ADMINISTRATORS inDegree BENEFITS ADMINISTRATORS 5 SETHLADD LULI DA [facility] inDegree BENEFITS ADMINISTRATORS inDegree BENEFITS ADMINISTRATORS inDegree BENEFITS ADMINISTRATORS in[employer]ree BENEFITS ADMINISTRATORS Care Teams Theatrical Scenic Designer Relationship Specialty Start Date End Date Miguel Juan PA-C [address] [place] [address] [email or web address] PCP - General Physician Tooling Mechanic 10/16/24 Additional Source Comments The information contained in this document represents components of the legal health record. It is not the complete legal health record.[facility]
--- OUTSIDE RECORDS SUMMARY | 2025-05-16 07:43 | XMS_ITS | Encounter Summary ---
Author Organization [facility] Address [address] [place] [address] [place] [address] Phone Care Team Providers Care Turf Keeper Name Role Phone Vimal Merino MD Unavailable [phone] Rosalio Galeana MD Unavailable Rachna Bernard CARTOGRAPHIC ENGINEER Unavailable [phone] Rachna Bernard CARTOGRAPHIC ENGINEER Primary Care Provider Ami Hoffman CUSTOMER SERVICE CLERK Primary Care Provider Miguel Juan PA-C Primary Care Provider [phone] Encounter Details Date Type Department Care Team (Latest Contact Info) Description 02/17/2018 Transcribe Orders [facility] Laboratory [address] [place], [place] [id number] Heath Moy MD [address] [place] [address], [address] [place], [place] [phone] [email or web address] [...] Description 08/09/2025 8:00 AM EST Office Visit [facility] Internal Medicine 40 [place] [address] Miguel Juan PA-C 40 [place] [address] [email or web address] documented as of this encounter Results * Miscellaneous lab test (02/17/2018 3:32 PM EDT) TESTS REQUESTED MYELIN OLIGODENDROCYTE GLYCOPROTEIN [facility] SPECIMEN/TUBE TYPE RED TOP [facility] REQUEST RECEIVED Request received. A separate order for the requested test will be generated by the laboratory. [facility] Blood 02/17/2018 3:32 PM EDT 02/17/2018 3:41 PM EDT us Heath Moy MD LAB BLOOD ORDERABLES Final R esult Performing Organization Address City/State/[facility] Co de Phone Number [facility] [address] [place] [address] documented in this encounter Visit Diagnoses Diagnosis [...] documented as of this encounter Care Teams Turf Keeper Relationship Specialty Start Date End Date Rachna Bernard NP [address] [facility] [address] [place] [address] PCP - General Family Medicine 08/18/17 11/17/23 Ami Hoffman FNP 15 [facility] [address] [place] [address] PCP - General Nurse Practitioner 11/18/23 10/15/24 Miguel Juan PA-C 40 [place] [address] [email or web address] PCP - General Physician Core Fitter 10/16/24 Vimal Merino MD 40 [place] [address] Historical LMR Provider 06/08/17 12/07/19 Rosalio Galeana MD 22 [facility], 2nd [place] [address] Historical LMR Provider 06/08/17 12/07/19 Rachna Bernard NP 26 [facility] 6 [place] [address] Historical LMR Provider 06/08/17 12/07/19 documented as of this encounter Additional Source Comments The information contained in this document represents components of the legal health record. It is not the complete legal health record.[facility]
--- OUTSIDE RECORDS SUMMARY | 2025-05-16 07:43 | XMS_ITS | Encounter Summary ---
Author Organization [facility] Address [address] [place] [address] [place] [phone] Phone Care Team Providers Care Feedlot Manager Name Role Phone Rachna Bernard SILK HANGER Primary Care Provider Ami Hoffman Primary Care Provider Miguel Juan PA-C Primary Care Provider [phone] Encounter Details Date Type Department Care Team (Late st Contact Info) Description 06/21/2023 Nurse Triage [facility] Internal Medicine [address] [address] Rachna Bernard, SILK HANGER [address] [facility] [address] [place] [address] [email or web address] Social History Tobacco Use Types Packs/Day Years [...] high school, GED, job training, learning the [place] language, technical skills, or developing parenting skills)? [...] SOB Protocols used: CORONAVIRUS (COVID-19) DIAGNOSED OR [id number] Nurse Triage Encounter Note Reason for Triage Yahaira Jaeger contacted office for None Call Disposition Home Care Patient/caregiver understands and will follow disposition: Unsure Patient/caregiver understands and will follow care advice: Disposition Comments: Protocols used: Coronavirus (Covid-19) Diagnosed Or Vsjkfzjzy-Pkcyt-Zg Initial Symptom Screening and Assessment IA None [...] either acetaminophen or ibuprofen. * They are hfsr-xqd-mazmyaf (OTC) drugs that help treat both fever [...] Description 08/09/2025 8:00 AM EST Office Visit [facility] Internal Medicine [address] [place] [address] Miguel Juan PA-C 40 [place] [address] [email or web address] documented as of this encounter Visit Diagnoses Not on filedocumented in this encounter Additional Health Concerns Infection Onset Date Last Indicated Resolved Time CoV-Risk 07/01/2024 07/01/2024 07/12/2024 1:21 AM EST Assessment Noted Time PHQ-2 Depression Total Score: 0 08/18/20 22 3:41 PM EST documented as of this encounter Care Teams Feedlot Manager Relationship Specialty Start Date End Date Rachna Bernard SILK HANGER PCP - General Family Medicine 08/18/17 11/17/23 Ami Hoffman FNP [address] [address] PCP - General Nurse Practitioner 11/18/23 10/15/24 Miguel Juan PA-C 40 [place] [address] PCP - General Physician Nurse Manager 10/16/24 documented as of this encounter Additional Source Comments The information contained in this document represents components of the legal health record. It is not the complete legal health record.[facility]
--- OUTSIDE RECORDS SUMMARY | 2025-05-16 07:43 | XMS_ITS | Encounter Summary ---
Author Organization [facility] Address [address] [place] [address] [place] [phone] Phone Care Team Providers Care Renal Nurse Name Role Phone Miguel Juan PA-C Primary Care Provider [phone] Reason for Referral * MRI/CAT Scan - Closed Specialty Diagnoses / Procedures Referred By Elvira raya Referred To Contact Radiology Procedures Outside MR Extremity Lower report Only [facility] Internal Medicine [address] [place] [address] Phone: tel: fax: Referral ID Status Reason Start Date Expiration Date Visits Re quested Visits Authorized [id number] Closed 05/14/2025 1 1 Encounter Details Date Type Department Care Team (Late st Contact Info) Description 05/14/2025 Orders Only [facility] Internal Medicine [address] [place] [address] Kristian Young MD [address] [place] [phone] Social History Tobacco Use Types Packs/Day Years [...] Description 08/09/2025 8:00 AM EST Office Visit [facility] Internal Medicine [address] [place] [address] Miguel Juan PA-C 40 [place] [address] [email or web address] documented as of this encounter Procedures Procedure Name Priority Date/Time Associated Diagnosis Comments OUTSIDE MR EXTREMITY LOWER REPORT ONLY Routine 05/10/2025 8:24 AM EDT documented in this encounter Results * Outside MR Extremity Lower report Only (05/10/2025 8:24 AM EDT) us Historical Provider MD DAUGHERTY MR EXTREMITY Final Re sult documented in this encounter Visit Diagnoses Not on filedocumented in this encounter Additional Health Concerns Assessment Noted Time PHQ-2 Depression Total Score: 0 01/23/20 25 12:24 PM EDT documented as of this encounter Care Teams Renal Nurse Relationship Specialty Start Date End Date Miguel Juan PA-C 40 [place] [address] [email or web address] PCP - General Physician Public Works Commissioner 10/16/24 documented as of this encounter Additional Source Comments The information contained in this document represents components of the legal health record. It is not the complete legal health record.[facility]
--- NOTE | 2025-05-16 07:48 | MHC.OFFVIS ---
Intake Visit Reasons: Follow Up right foot/ankle pain Intake Note: Yahaira is a 70 year old female who presents today for a follow up on her right foot and ankle pain. She was seen on 04/27/25 where a lace up ankle brace was provided to patient. Patient reports she is still having pain. She is wearing a tall walking boot since it gives her the most relief. Her PCP gave her Diclofenac 75mg which is helping her pain. Allergies gluten (Gluten) Allergy (Severe, Verified 05/16/25 07:56) Gastrointestinal Upset Penicillins Allergy (Intermediate, Verified 05/16/25 07:56) Rash Sulfa (Sulfonamide Antibiotics) Allergy (Intermediate, Verified 05/16/25 07:56) Rash Codeine Phosphate Allergy (Intermediate, Uncoded 03/15/25 07:01) Nausea Medication List - Last Reconciled 05/16/25 by Laura Ling DPM aspirin (Adult Aspirin Regimen) 81 mg PO DAILY atorvastatin 10 mg PO DAILY cephalexin 500 mg PO Q8H 7 days cholecalciferol (vitamin D3) (Vitamin D3) 25 mcg PO DAILY diclofenac sodium 75 mg PO BID ibuprofen 1 tab PO TID PRN levothyroxine 75 mcg PO DAILY lidocaine 5% 1 patch topical DAILY PRN lorazepam 1 tab PO BID PRN omeprazole 20 mg PO DAILY pramipexole 1 mg PO BEDTIME prednisone 40 mg (2 x 20 mg) PO QAM HPI Comments Details: The patient is a 70-year-old female presenting for follow-up for ongoing right ankle pain and instability. The pain has been persistent despite conservative measures such as using a boot, brace, and ARIAS bandages. The pain is severe, reaching up to a 9/10, and it disrupts sleep with associated cramping. Patient states she signed out of the lace-up brace into the cam boot due to difficulty bending down to lace-up brace because of back pain. The patient has not undergone physical therapy for this condition yet. The patient has been prescribed diclofenac, which has provided some relief. She denies any new pedal injuries. She denies any other pedal concerns. She denies any current nausea, vomiting, fever, or chills. [facility] Medical History (Updated 05/16/25 @ 08:46 by Laura Ling DPM) Rheumatoid arthritis Right ankle swelling Insertional tendinopathy of right Achilles tendon Chronic instability of ankle Sprain of calcaneofibular ligament of right ankle, initial encounter Sprain of anterior talofibular ligament of right ankle Right ankle sprain Transient neurological symptoms Hypersomnia Snoring Chest pain Crescendo angina Angina pectoris Hypothyroidism Low back pain COVID-19 vaccine series completed Anxiety GERD (gastroesophageal reflux disease) Celiac disease Restless leg syndrome Surgical History Hx of bilateral cataract extraction History of esophagogastroduodenoscopy (EGD) Hx of colonoscopy Hx of foot surgery Hx of tonsillectomy Hx of appendectomy History of back surgery Family History Daughter Celiac disease Social History Household Members: Children Household Members Other:: son age 17 Housing: House Are you a primary intensive care ambulance paramedic to a significant other at home: No Do you presently have visiting nurse or other home services: No Alcohol intake: current Alcohol intake frequency: holidays/special occasions only Patient Tobacco Use Status: Former Tobacco user Tobacco use type: Cigarette Advance Directives Date on File: 03/14/21 service: No Current occupational status: employed 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 All systems reviewed & are unremarkable except as noted in HPI and below Physical Exam Extrem Other: Right lower extremity focused exam: Derm: No open wounds, lesions, abrasions noted. Skin turgor supple and intact. Mild edema noted to the ankle diffusely. No ecchymosis noted. No clinical signs of infection. Vasc: DP/PT pulses palpable. Cap refill time less than 3 seconds. Varicosities noted. Temperature gradient warm to warm. Pedal hair absent. Neuro: Protective sensation is grossly intact. Musculoskeletal: Pain on palpation to the right ankle along the lateral aspect of the ankle. Minimal tenderness noted to the medial aspect of the ankle radiating down towards the medial arch of the foot. Pain on palpation to the Achilles tendon insertional point and distal aspect of the Achilles. Pain on palpation to the area of the CFL and ATFL. Minimal pain on palpation to the deltoid. Pain with ankle range of motion, mostly plantar flexion and dorsiflexion. Muscle manual testing 4/5. Positive anterior drawer test. Ankle/foot/toe images:  1. 2. 3. Office Procedures [facility]B Podiatry Dressing 25250 - Strapping of foot/ankle Procedure code (CPT) selection complete Results Reviewed Results Reviewed: Laboratory Tests 03/12/25 03/30/25 09:07 14:06 C-Reactive Protein 2.99 H Rheumatoid Factor 21.0 H Podiatry Read of Right ankle MRI (05/10/25): Edema noted in the area of the lateral ankle ligaments, ankle, Achilles tendon. No complete ruptures noted. Sprained lateral ankle ligaments. Arthritic changes noted to the foot. Right ankle MRI (05/10/25): Findings: There is edema and cystic change in the navicular bone and medial cuneiform, degenerative. Intact articulations. Mild osteophytes. Small tibiotalar and subtalar joint effusions. Normal talar dome and subtalar joint cartilage. The Achilles tendon is increased in size and signal with mild peritendinous edema. The flexor and extensor tendons are intact. Deltoid ligament is intact. There is increased signal in the calcaneofibular and anterior talofibular ligaments. Normal anterior tibiofibular, posterior tibiofibular and posterior talofibular ligaments. Plantar fascia is intact and normal in size and signal. There is a calcaneal spur. No muscular atrophy. There is edema in the musculature and subcutaneous fat. Impression: Edema and cystic change in the navicular and medial cuneiform, degenerative. Small tibiotalar and subtalar joint effusions. Achilles tendinopathy with question of interstitial tears and mild peritendinitis. Sprain of the calcaneofibular and anterior talofibular ligaments. Edema in the soft tissues. Right foot x-rays (03/15/2025): FINDINGS: No acute cortical disruption. No gross malalignment. Degenerative changes in the first tarsometatarsal joint. No lytic or blastic lesions. Small spur, calcaneus. No subcutaneous emphysema. No gross joint effusion. Prominent soft tissues in the distal dorsal aspect of the foot. IMPRESSION: Soft tissue edema without subcutaneous emphysema. No acute fracture or dislocation. No osteomyelitis on x-ray. Right ankle x-rays (03/12/2025): FINDINGS: No fracture, dislocation, or suspicious bone lesion. There is anatomical alignment. The mortise is intact. The talar dome is normal. Joint spaces are preserved. The subtalar joints appear normal. There is a small plantar calcaneal spur. No soft tissue abnormalities. IMPRESSION: No acute bony abnormalities right ankle. Assessment & Plan Assessment & Plan (1) Ankle pain, right: Code(s): M25.571 - Pain in right ankle and joints of right foot Category: Medical Qualifiers: Chronicity: acute Qualified Code(s): M25.571 - Pain in right ankle and joints of right foot (2) Right ankle sprain: Code(s): S93.401A - Sprain of unspecified ligament of right ankle, initial encounter Category: Medical Qualifiers: Encounter type: subsequent encounter Involved ligament of ankle: anterior talofibular ligament Qualified Code(s): S93.491D - Sprain of other ligament of right ankle, subsequent encounter (3) Chronic instability of ankle: Code(s): M25.373 - Other instability, unspecified ankle Category: Medical (4) Insertional tendinopathy of right Achilles tendon: Code(s): M76.61 - Achilles tendinitis, right leg Category: Medical (5) Sprain of anterior talofibular ligament of right ankle: Code(s): S93.491A - Sprain of other ligament of right ankle, initial encounter Category: Medical Qualifiers: Encounter type: subsequent encounter Qualified Code(s): S93.491D - Sprain of other ligament of right ankle, subsequent encounter (6) Sprain of calcaneofibular ligament of right ankle, initial encounter: Code(s): S93.411A - Sprain of calcaneofibular ligament of right ankle, initial encounter Category: Medical (7) Right ankle swelling: Code(s): M25.471 - Effusion, right ankle Category: Medical (8) Rheumatoid arthritis: Code(s): M06.9 - Rheumatoid arthritis, unspecified Category: Medical Qualifiers: Rheumatoid factor presence: with rheumatoid factor Plan Patient was informed and verbally consented to the use of an ambient scribe for clinic note documentation during this visit. I discussed with the patient the findings of the MRI, which showed sprained lateral ankle ligaments and inflammation in the Achilles tendon, but no major tears. We talked about starting physical therapy to improve ankle strength and mobility. I explained the potential for a corticosteroid injection if pain persists and the possibility of surgical intervention if conservative measures are ineffective. The patient was informed about the risks and benefits of each option, and the importance of continuing diclofenac for pain management was emphasized. 1. Right Chronic ankle instability/sprain - Applied an Arias bandage to the right foot and ankle. - Continue with RICE protocol. - Ordered referral for physical therapy to improve strength and mobility of the ankle. - Continue diclofenac for inflammation and pain management. - Alternate between using the boot and brace as needed for support. Patient may be weight-bearing as tolerated to the right lower extremity. - Consider corticosteroid injection if pain persists despite physical therapy. - Surgical intervention may be considered if conservative measures fail, focusing on joint cleanup to alleviate inflammation. - Contact the clinic if pain worsens or if there are any concerns about the treatment plan. Patient is to return to the office in 1 month for re-evaluation of symptoms. Orders: Orders PT Evaluation and Treatment Today M25.373 - Other instability, unspecified ankle, M25.571 - Pain in right ankle and joints of right foot, S93.401A - Sprain of unspecified ligament of right ankle, initial encounter [facility]B Podiatry Dressing Today M25.373 - Other instability, unspecified ankle, M25.471 - Effusion, right ankle, M25.571 - Pain in right ankle and joints of right foot, M76.61 - Achilles tendinitis, right leg, S93.411A - Sprain of calcaneofibular ligament of right ankle, initial encounter, S93.491A - Sprain of other ligament of right ankle, initial encounter, S93.491D - Sprain of other ligament of right ankle, subsequent encounter Coding Level of Care Code Est Pt Level 4 (44280) Diagnoses Ankle pain, right M25.571 Chronicity: acute Sprain of anterior talofibular ligament of right ankle, subsequent encounter S93.491D Encounter type: subsequent encounter Involved ligament of ankle: anterior talofibular ligament Chronic instability of ankle M25.373 Insertional tendinopathy of right Achilles tendon M76.61 Sprain of anterior talofibular ligament of right ankle, subsequent encounter S93.491D Encounter type: subsequent encounter Sprain of calcaneofibular ligament of right ankle, initial encounter S93.411A Right ankle swelling M25.471 Rheumatoid arthritis M06.9 Rheumatoid factor presence: with rheumatoid factor CPT Codes Podiatry Dressing - CPT: 94098 - Strapping of foot/ankle ([id number]) Time Spent (min) 45
== END 2025-05-16 08:19 | disposition home or self-care (01) ==
LOC: HO.HPODS 07:37
PROVIDERS: PCP Physician Assistant Surgical; Visit Provider Student in an Organized Health Care Education/Training Program
DX: M25.571 Pain in right ankle and joints of right foot (principal); S93.491D Sprain of other ligament of right ankle, subsequent encounter; M25.373 Other instability, unspecified ankle; M76.61 Achilles tendinitis, right leg; S93.411A Sprain of calcaneofibular ligament of right ankle, initial encounter; M25.471 Effusion, right ankle; M06.9 Rheumatoid arthritis, unspecified
CPT/HCPCS: 99213

== ENCOUNTER → 2025-05-16 07:36 | Outpatient (BNVA) | payer OTHER, SELFPAY | PROVIDERS: PCP Physician Assistant Surgical; Visit Provider Student in an Organized Health Care Education/Training Program | DX: S93.491A Sprain of other ligament of right ankle, initial encounter (principal); S93.411A Sprain of calcaneofibular ligament of right ankle, initial encounter; X58.XXXA Exposure to other specified factors, initial encounter; Y93.9 Activity, unspecified; Y92.9 Unspecified place or not applicable; Y99.9 Unspecified external cause status; M25.571 Pain in right ankle and joints of right foot; M25.373 Other instability, unspecified ankle; M25.471 Effusion, right ankle; M76.61 Achilles tendinitis, right leg; M06.9 Rheumatoid arthritis, unspecified | CPT/HCPCS: 29540 ==

== ENCOUNTER 2025-05-30 07:14 | Outpatient (REF) | payer OTHER, SELFPAY ==
[2025-05-30 13:25] LABS: MANUAL DIFF FLAG NO
[2025-05-30 13:43] LABS: Hematocrit 42.2 % (37.0-47.0); Hemoglobin 13.2 g/dl (12.0-16.0); Imm Gran Abs Auto 0.02 X10*3/uL (0.00-0.03); Imm Gran Pct Auto 0.3 % (0.0-0.4); Lymphocytes Absolute Auto 1.5 X10*3/uL (1.2-4.9); Mean Corpuscular HGB Conc 31.3 g/dl (31.0-35.0); Mean Corpuscular Hemoglobin 28.1 pg (27.0-33.0); Mean Corpuscular Volume 90.0 fL (80.0-98.0); NRBC Abs Auto 0.000 X10*3/uL (0.0-0.012); NRBC Pct Auto 0.0 /100WBC (0.0-0.2); Platelet Count 339 X10*3/uL (160-400); Red Blood Count 4.69 X10*6/uL (4.20-5.50); White Blood Count 7.7 X10*3/uL (4.8-10.8)
[2025-05-30 13:56] LABS: Alanine Aminotransferase 31 U/L (0-31); Albumin Level 4.7 g/dL (3.5-5.0); Alkaline Phosphatase 109 U/L (39-117); Anion Gap 10 (12-20); Aspartate Amino Transferase 40 U/L (5-31); Blood Urea Nitrogen 11 mg/dL (9-16); Calcium 9.9 mg/dL (8.4-10.2); Carbon Dioxide 26 mmol/L (22-29); Chloride 110 mmol/L (96-108); Estimated Glomerular Filt Rate > 60; Magnesium 2.2 mg/dL (1.6-2.6); Potassium 4.5 mmol/L (3.3-5.1); Sodium 141 mmol/L (135-145); Total Protein 6.9 g/dL (6.5-8.0)
[2025-05-30 14:11] LABS: HBS Num1 1.73 mIU/mL (0-7.99); HBc Num1 0.13 S/CO (0.00-0.79); HBsAGNum1 0.38 S/CO (0.00-0.99); Hepatitis A Antibody IgM 0.17 Index (0-0.79); Hepatitis B Surface Antigen Negative (Negative); ~HepC Num1 0.18 S/CO (0.00-0.79); ~Hepatitis A Antibody IgM Nonreactive (Nonreactive); ~Hepatitis B Surface Antibody NONREACTIVE (Nonreactive); ~Hepatitis C Antibody Nonreactive (Nonreactive)
[2025-05-30 14:29] LABS: Parathyroid Hormone Intact 107.4 pg/mL (8.7-77.1)
== END 2025-05-30 07:15 | disposition home or self-care (01) ==
LOC: HO.HKASLDS 07:14
PROVIDERS: PCP Physician Assistant Surgical; Visit Provider Student in an Organized Health Care Education/Training Program
DX: M11.20 Other chondrocalcinosis, unspecified site (principal); M19.09 Primary osteoarthritis, other specified site; M25.473 Effusion, unspecified ankle; M25.511 Pain in right shoulder; M25.571 Pain in right ankle and joints of right foot
CPT/HCPCS: 36415; 80053; 83735; 83970; 85025; 85652; 86140; 86200; 86704; 86706; 86709; 86803; 87340

== ENCOUNTER 2025-05-30 07:14 | Outpatient (AMB) | payer OTHER, SELFPAY ==
--- OUTSIDE RECORDS SUMMARY | 2020-03-16 09:25 | XMS_ITS | Encounter Summary ---
Author Organization [facility] Address [address] [employer] [facility] [address] [place] [address] Phone Care Team Providers Care Flour Mixer Name Role Phone Rachna Bernard SHIPPING ROOM HELPER Primary Care Provider [phone] Encounter Details Date Type Department Care Team (Late st Contact Info) Description 03/16/2020 9:25 AM EDT Hospital Encounter [facility] [address] [place] [address] Varsha Britton, CHIEF GUARD [address] [place] [address] [email or web address] Social History Tobacco Use Types Packs/Day Years [...] EST Office Visit [facility] [place] [facility] 40 [place] [address] Miguel Juan PA-C 40 [place] [address] [email or web address] documented as of this encounter Procedures [...] AM EDT No significant bony abnormality. POS [id number] Narrative 03/16/2020 9:51 AM EDT Frontal and lateral views disclose no fracture, subluxation, or other significant abnormality involving the visualized regional skeletal structures. Procedure Note Jarad Goodrich MD - 03/16/2020 Frontal and lateral views disclose no fracture, subluxation, or othersignificant abnormality involving the visualized regional skeletalstructures. IMPRESSION: No significant bony abnormality. POS [id number] Varsha Britton CHIEF GUARD IMG XR UPPER EXTREMITY Final Result documented [...] documented as of this encounter Care Teams Flour Mixer Relationship Specialty Start Date End Date Rachna Bernard NP [email or web address] PCP - General Family Medicine 08/18/17 11/17/23 documented as of this encounter Additional Source Comments The information contained in this document represents components of the legal health record. It is not the complete legal health record.[facility]
--- OUTSIDE RECORDS SUMMARY | 2025-05-30 07:17 | XMS_ITS | Encounter Summary ---
Author Organization [facility] Address [address] [place] [address] [place] [address] Phone Care Team Providers Care Yard Spotter Name Role Phone Rachna Bernard LINE PILOT Primary Care Provider Ami Hoffman Primary Care Provider [phone] Miguel Juan PA-C Primary Care Provider [phone] Encounter Details Date Type Department Care Team (Late st Contact Info) Description 06/21/2023 Nurse Triage [facility] Internal Medicine [address] [place] [address] Rachna Bernard LINE PILOT [address] [facility] [address] [place] [address] [email or web address] Social History Tobacco Use Types Packs/Day Years [...] high school, GED, job training, learning the Portuguese language, technical skills, or developing parenting skills)? [...] SOB Protocols used: CORONAVIRUS (COVID-19) DIAGNOSED OR [id number] Nurse Triage Encounter Note Reason for Triage Yahaira Jaeger contacted office for None Call Disposition Home Care Patient/caregiver understands and will follow disposition: Unsure Patient/caregiver understands and will follow care advice: Disposition Comments: Protocols used: Coronavirus (Covid-19) Diagnosed Or [id number] Initial Symptom Screening and Assessment [place] None [...] either acetaminophen or ibuprofen. * They are vyal-vrm-soloafl (OTC) drugs that help treat both fever [...] Description 08/09/2025 8:00 AM EST Office Visit [facility] Internal Medicine [address] [place] [address] Miguel Juan PA-C [address] [place] [address] [email or web address] documented as of this encounter Visit Diagnoses Not on filedocumented in this encounter Additional Health Concerns Infection Onset Date Last Indicated Resolved Time CoV-Risk 07/01/2024 07/01/2024 07/12/2024 1:21 AM EST Assessment Noted Time PHQ-2 Depression Total Score: 0 08/18/20 22 3:41 PM EST documented as of this encounter Care Teams Yard Spotter Relationship Specialty Start Date End Date Rachna Bernard LINE PILOT PCP - General Family Medicine 08/18/17 11/17/23 Ami Hoffman FNP [address] [address] PCP - General Nurse Practitioner 11/18/23 10/15/24 Miguel Juan PA-C [address] [place] [address] PCP - General Physician Criminal Intelligence Analyst 10/16/24 documented as of this encounter Additional Source Comments The information contained in this document represents components of the legal health record. It is not the complete legal health record.[facility]
--- OUTSIDE RECORDS SUMMARY | 2025-05-30 07:17 | XMS_ITS | Encounter Summary ---
Author Organization [facility] Address [address] [place] [address] [place] [address] Phone Care Team Providers Care Operations Staff Specialist Security Name Role Phone Vimal Merino MD Unavailable Rosalio Galeana MD Unavailable Rachna Bernard LEAD POURER Unavailable [phone] Rachna Bernard LEAD POURER Primary Care Provider [phone] Ami Hoffman ANIMAL HUSBANDRY MANAGER Primary Care Provider Miguel Juan PA-C Primary Care Provider [phone] Encounter Details Date Type Department Care Team (Latest Contact Info) Description 02/17/2018 Transcribe Orders [facility] Laboratory [address] [place], [place] [id number] Heath Moy MD [address] [place] [address], [address] [place], [place] [id number] [email or web address] MS (multiple sclerosis) (Primary Dx) Social [...] Description 08/09/2025 8:00 AM EST Office Visit [facility] Internal Medicine [address] [place] [address] Miguel Juan PA-C [address] [place] [address] [email or web address] documented as of this encounter Results * Miscellaneous lab test (02/17/2018 3:32 PM EDT) TESTS REQUESTED MYELIN OLIGODENDROCYTE GLYCOPROTEIN [facility] SPECIMEN/TUBE TYPE RED TOP [facility] REQUEST RECEIVED Request received. A separate order for the requested test will be generated by the laboratory. [facility] Blood 02/17/2018 3:32 PM EDT 02/17/2018 3:41 PM EDT us Heath Moy MD LAB BLOOD ORDERABLES Final R esult Performing Organization Address City/State/[facility] Co de Phone Number [facility] [address] [place] [address] documented in this encounter Visit Diagnoses Diagnosis [...] documented as of this encounter Care Teams Operations Staff Specialist Security Relationship Specialty Start Date End Date Rachna Bernard NP [address] [facility] [address] [place] [address] PCP - General Family Medicine 08/18/17 11/17/23 Ami Hoffman FNP [address] [facility] [address] [place] [address] PCP - General Nurse Practitioner 11/18/23 10/15/24 Miguel Juan PA-C [address] [place] [address] PCP - General Physician Surface To Air Weapons Officer 10/16/24 Vimal Merino MD [address] [place] [address] Historical LMR Provider 06/08/17 12/07/19 Rosalio Galeana MD [address] [facility] [place] [address] Historical LMR Provider 06/08/17 12/07/19 Rachna Bernard NP [address] [facility] [address] [place] [address] Historical LMR Provider 06/08/17 12/07/19 documented as of this encounter Additional Source Comments The information contained in this document represents components of the legal health record. It is not the complete legal health record.[facility]
--- OUTSIDE RECORDS SUMMARY | 2025-05-30 07:17 | XMS_ITS | Encounter Summary ---
Author Organization [facility] Address [address] [place] [address] [place] [address] Phone Care Team Providers Care Faculty Physician Name Role Phone Miguel Juan PA-C Primary Care Provider [phone] Reason for Referral * MRI/CAT Scan - Closed Specialty Diagnoses / Procedures Referred By Elvira raya Referred To Contact Radiology Procedures Outside MR Extremity Lower report Only [facility] Internal Medicine [address] [place] [address] Phone: tel: fax: Referral ID Status Reason Start Date Expiration Date Visits Re quested Visits Authorized [id number] Closed 05/14/2025 1 1 Encounter Details Date Type Department Care Team (Late st Contact Info) Description 05/14/2025 Orders Only [facility] Internal Medicine [address] [place] [address] Kristian Young MD [address] [place] [address] Social History Tobacco Use Types Packs/Day [...] Description 08/09/2025 8:00 AM EST Office Visit [facility] Internal Medicine [address] [place] [address] Miguel Juan PA-C [address] [place] [address] [email or web address] documented as of this encounter Procedures Procedure [...] documented as of this encounter Care Teams Faculty Physician Relationship Specialty Start Date End Date Miguel Juan PA-C [address] [place] [address] [email or web address] PCP - General Physician Golf Professional 10/16/24 documented as of this encounter Additional Source Comments The information contained in this document represents components of the legal health record. It is not the complete legal health record.[facility]
--- OUTSIDE RECORDS SUMMARY | 2025-05-30 07:17 | XMS_ITS | Clinical Summary ---
Author Organization [facility] Address [address] [place] [phone] Phone Care Team Providers Care Pharmacy Tech Name Role Phone Miguel Juan PA-C Primary Care Provider Allergies Active Allergy Reactions Criticality Noted Date Comments Codeine Nausea and/or Vomiting 12/21/2017 Gluten Other (See Comments) 12/21/2017 Celiac: gets very sick per patient Oxycodone-Acetaminophen 07/04/2021 Penicillins Rash Low 12/21/2017 Sulfa (Sulfonamide Antibiotics) Rash Low 12/21/2017 Medications pramipexole (MIRAPEX) 1 MG tablet TAKE 1 [...] 3 01/26/20 25 Active lidocaine (LIDODERM) 5 %Indications: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 28 tablet 05/15/20 25 Active levothyroxine (SYNTHROID, LEVOTHROID) 75 MCG tabletIndications :Acquired hypothyroidism TAKE 1 TABLET (75 MCG TOTAL) BY MOUTH EVERY MORNING. 90 tablet 3 05/28/20 25 Active levothyroxine (SYNTHROID, LEVOTHROID) 75 MCG tabletIndications :Acquired hypothyroidism TAKE 1 TABLET (75 MCG TOTAL) BY MOUTH EVERY MORNING. 30 tablet 11 08/21/20 24 025 Discontinued cyclobenzaprine (FLEXERIL) 10 MG tablet Take 1 [...] popping sensation. She was seen at the [facility] x 2 and had undergone right [...] any relief. She was seen by at [facility] preparer making department who switched her out of the boot [...] -Patient has an appointment coming up with [facility] on 05/11 patient was advised to keep [...] she does have an appointment scheduled with [facility] on 05/11 for further evaluation. Of note [...] without improvement on prednisone, will refer to [facility] per patient request. Also, given the [...] EDT): Patient underwent laboratory data done at [facility]. Her labs were discussed during her office visit. She is up-to-date on her colonoscopy, mammogram and Pap smear will be completed this coming fall at [facility]. Annual physical 1 year Migraine without aura and [facility] status migrainosus, not intractable 10/25/2024 Assessment & [...] up with neurology and referral placed to [facility] per patient request Urine frequency 12/14/2023 Assessment [...] back pain. She has been seen by [facility] with noted cortisone injections. She has been managing her pain with PT, ibuprofen, stretching, heat, and lidocaine patches. During her last visit in January, she asked to have her PMLA extended. Patient is a will be undergoing cortisone injections through [facility] in the upcoming weeks Assessment & Plan (03/13/2025 10:29 PM EDT): Chronic, unchanged, though symptoms are significantly impacting function today. Will make f/u with either [facility] or [facility] Assessment & Plan (01/25/2025 8:09 AM EDT): Patient follows closely with [facility] and has undergone cortisone [...] (04/14/2024 9:44 AM EDT): Continue follow-up with [facility] as she notes that she prefers their office over [facility]. Does note that previous injections were helpful for recent travel to [place]. Hypothyroidism 12/21/2017 Assessment & Plan (05/03/2025 7:53 [...] Encounters Date Type Department Care Team Description 05/28/2025 Refill [facility] Internal Medicine [address] [place] [address] Ami Hoffman FNP Medication Refill 05/14/2025 Orders Only [facility] Internal [facility] [address] [facility] [place] [address] Provider, MD Kristian 05/03/2025 8:00 AM EDT Office Visit [facility] [address] [facility] [place] [address] Miguel Juan PA-C Mixed hyperlipidemia (Primary Dx); Acquired hypothyroidism; Chronic bilateral low back pain with left-sided sciatica; Olecranon bursitis of right elbow; Acute right ankle pain 04/03/2025 Orders Only [facility] Internal Medicine [address] [facility] [place] [address] Kristian Young MD 04/02/2025 Orders Only [facility] Internal [facility] [address] [facility] [place] [address] Kristian Young MD 03/30/2025 1:00 PM EDT Office Visit [facility] Internal [facility] [address] [place] [address] Miguel Juan PA-C Carey, Samantha, PA-C Olecranon bursitis of right elbow (Primary Dx) 03/28/2025 Documentation [facility] Internal [facility] [address] [place] [address] Miguel Juan PA-C 03/28/2025 Orders Only [facility] Internal [facility] [address] [place] [address] Kristian Young MD 03/15/2025 Orders Only [facility] Internal [facility] [address] [place] [address] Kristian Young MD 03/14/2025 Orders Only [facility] Internal [facility] [address] [place] [address] Boris Roberts MD Poison mis dermatitis (Primary Dx) 03/13/2025 1:30 PM EDT Office Visit [facility] Internal [facility] [address] [place] [address] Lizett Riddle, REAL Achilles tendinitis of right lower extremity (Primary Dx); Elevated C-reactive protein (CRP); Spasm of both trapezius muscles; Poison mis dermatitis; Chronic bilateral low back pain with left-sided sciatica 03/13/2025 Orders Only [facility] Internal [facility] [address] [place] [address] Kristian Young MD 03/12/2025 Orders Only [facility] Internal Medicine [address] [place] [address] ProviderKristian MD 03/12/2025 Telephone [facility] [address] [place] [address] Ewa Longo, ALEJANDRA Appointment from Last 3 [...] Description 08/09/2025 8:00 AM EST Office Visit [facility] Internal Medicine [address] [place] [address] Miguel Juan PA-C [address] [place] [address] [email or web address] Health Maintenance Due Date Last Done Comments COLOGUARD 2002 FIT TEST 2002 FOBT 2002 SIGMOIDOSCOPY 2002 VIRTUAL COLONOSCOPY 2002 COVID-19 VACCINE ( season) 2025 09/20/2020, 08/30/2020 TSH LEVEL 01/13/2026 01/13/2025, 12/22, 12/31/2023, Additional history exists DEPRESSION SCREENING 01/22/2026 01/22/2025 MAMMOGRAM 08/26/2026 08/26/2024, 07/24, 09/18/2022, Additional history exists SCREENING FOR DIABETES 01/14/2028 , 08/19/2023, 01/08/2022, Additional history exists LIPID PANEL 01/13/2030 01/13/2025, 12/22, 01/13/2025, Additional history exists Adult Td,Tdap Booster 03/16/2030 03/16/2020 COLONOSCOPY 06/20/2031 06/20/2021, 06/20/2021 COLORECTAL CANCER SCREENING 06/20/2031 RSV VACCINE (1 - 1-dose 75+ series) 2032 HEPATITIS C SCREENING Completed 01/09/2022, 022 PNEUMOCOCCAL [...] report Only (05/10/2025 8:24 AM EDT) Result [facility] Historical Provider IMPiedad MR EXTREMITY Final Re sult * Lyme Screen with Reflex to Immunoblot, Blood (03/30/2025 3:50 PM EDT) [facility] Provider LAB BLOOD ORDERABLES Loren l Result * Rheumatoid factor (03/30/2025 3:50 PM EDT) [facility] Provider LAB BLOOD ORDERABLES Loren l Result * Uric acid (03/30/2025 3:50 PM EDT) [facility] Provider LAB BLOOD ORDERABLES Loren l Result * Outside Lab (03/30/2025 8:06 AM EDT) Only the most recent of2 resultswithin the time period is included. Historical Provider LAB BLOOD ORDERABLES Loren l Result * Outside XR Extremity Upper Report Only (03/27/2025 7:51 AM EDT) Result [facility] IMG XR UPPER EXTREMITY Fi nal Result * Outside XR Imaging Report Only (03/27/2025 7:46 AM EDT) Result [facility] IMG XR CHEST Final Res ult * Outside XR Imaging Report Only (03/15/2025 8:10 AM EDT) Result [facility] IMG XR CHEST Final Res ult * Outside Potassium Level (03/15/2025) Potassium level - External 3.4 3.4 - 5.0 mmol/L Result [facility] LAB BLOOD ORDERABLES Loren l Result * Outside Serum Creatinine Level (03/15/2025) Creatinine, serum - External 0.8 0.8 - 1.3 mg/dL Result [facility] LAB BLOOD ORDERABLES Loren l Result * Outside ALT Level (03/15/2025) ALT - External 14 5 - 30 U/L Result [facility] LAB BLOOD ORDERABLES Loren l Result * Outside XR??Chest Report Only (03/12/2025 4:18 PM EDT) Result [facility] IMG XR CHEST Final Res ult * Outside XR Extremity Lower Report Only (03/12/2025 4:02 PM EDT) Result [facility] IMG XR LOWER EXTREMITY Fi nal Result * Outside Imaging Report Only (03/12/2025 10:12 AM EDT) Result [facility] IMG XR CHEST Final Res ult * Outside TSH Level (01/13/2025) TSH - External 0.61 0.5 - 5 uIU/L Result [facility] Historical Provider LAB BLOOD ORDERABLES Loren l Result * Outside Glucose,Fasting (01/13/2025) Glucose, fasting - External 96 65 - 99 mg/dL Result [facility] Provider LAB BLOOD ORDERABLES Loren l Result * Outside HDL (01/13/2025) HDL - External 44 40 - 80 mg/dL Result [facility] Provider LAB BLOOD ORDERABLES Loren l Result * HM MAMMOGRAPHY FOR RESULT ENTRY ONLY (08/26/2024 10:07 AM EST) Result [facility] Provider HEALTH MAINTENANCE Edited Result - Final * DXA Screening (08/19/2023 10:27 AM EST) Anatomical Region Laterality Modality Bone Density Bone Density Rachna Bernard NP IMG BD BONE DENSITY DEXA Final Result * Hepatitis C antibody, qualitative (01/09/2022 3:00 PM EDT) Blood Result [facility] Rachna Bernard NP LAB BLOOD ORDERABLES Final Resu lt [address] [address] * HM COLONOSCOPY FOR RESULT ENTRY ONLY (06/20/2021) Result [facility] Historical Provider HEALTH MAINTENANCE Edited Result - Final from Last 3 Months or Most Recently Relevant to Health Maintenance Insurance [employer]ATORS [place] [id number] [place] [address] [email or web address] Care Teams Pharmacy Tech Relationship Specialty Start Date End Date Miguel Juan PA-C [address] [place] [phone] [email or web address] PCP - General Physician Ctc Operator 10/16/24 Additional Source Comments The information contained in this document represents components of the legal health record. It is not the complete legal health record.[facility]
--- OUTSIDE RECORDS SUMMARY | 2025-05-30 07:17 | XMS_ITS | Encounter Summary ---
Author Organization [facility] Address [address] [place] [address] Phone Care Team Providers Care Cutter Down Name Role Phone Miguel Juan PA-C Primary Care Provider [phone] Reason for Visit * Reason Comments Medication Refill Encounter Details Date Type Department Care Team (Late st Contact Info) Description 05/28/2025 Refill [facility] Medical [facility] Internal Medicine [address] [place] [address] Ami Hoffman, [facility] [address] [facility] [address] [place] [address] [email or web address] Medication Refill Social History Tobacco Use Types Packs/Day Years [...] as of this encounter Progress Notes * Katy Cruz CMA - 05/28/2025 12:42 PM EDT Rx Care Gap Status - Instructions for Clinical Staff (prescriber discretion applies): > Mismatch review guide > N/a - No action needed Visit Info Last visit: 05/03/2025 Miguel Juan PA-C - Internal Medicine [facility] > Requested f/u: Return in about 3 months (around 08/02/2025). Upcoming visit: 08/09/2025 Miguel Juan PA-C - Internal Medicine [facility] ACTIONS TAKEN BY Katy Cruz CMA - Criteria met. Thyroid Medication Rx Protocol - levothyroxine sodium Criteria met; renew for up to 12 months. Visit in the past 14 months: Yes Clinical criteria: - TSH within past year: Yes - Last TSH was normal: Yes Lab Results Component Value Date TSH - External 0.61 01/13/2025 documented in this encounter Plan of Treatment Upcoming Encounters Date Type Department Care Team (Late st Contact Info) Description 08/09/2025 8:00 AM EST Office Visit [facility] Internal Medicine [address] [place] [address] Miguel Juan PA-C [address] [place] [address] [email or web address] documented as of this encounter Visit Diagnoses Diagnosis Acquired hypothyroidism Unspecified hypothyroidism documented in this encounter Additional Health Concerns Assessment Noted Time PHQ-2 Depression Total Score: 0 01/23/20 12:24 PM EDT documented as of this encounter Care Teams Cutter Down Relationship Specialty Start Date End Date Miguel Juan PA-C [address] [place] [address] PCP - General Physician Yarder Puncher 10/16/24 documented as of this encounter Additional Source Comments The information contained in this document represents components of the legal health record. It is not the complete legal health record.[facility]
--- OUTSIDE RECORDS SUMMARY | 2025-05-30 07:17 | XMS_ITS | Data Portability ---
Author Organization [facility], [facility] Address [address] [place] [address] Care Team Providers Care Mesh Worker Name Role Phone MARIAH NORTH Primary Care Provider Assessment Encounter Date Assessment Date Assessment LastModified by Organization Details LastModified Time 03/21/2025 03/21/2025 Urgent Care Visit I am seeing the patient today under the supervision of Dr. Soliz who was available but who did not see the patient. Chief Complaint: Right foot pain Date of injury: 2 weeks ago HPI: Patient is a 69-year-old female presenting today for evaluation of right foot pain. Had an onset of symptoms about 2 weeks ago where she has felt more pain about the lateral aspect of her ankle. She has had surgery on this ankle in the remote past but she states that it was for her great toe and an accessory bone. She has not felt this pain in the foot before. She denies any feelings of instability. She has noticed a little bit of swelling out on the outside of the ankle. She feels a little bit of posterior pain as well but predominantly lateral. Past family, medical, social history and review of systems has been reviewed, updated and signed by me and is located in the patient's chart. Examination: The patient is well appearing and in no apparent distress. Alert and oriented x3. Visual inspection reveals no obvious deformity. Lateral ankle swelling noted. No ecchymosis noted. Tenderness to palpation about ATFL and peroneal tendons, minimal Achilles tenderness. No deltoid ligament tenderness. No distal fibular tenderness. Range of motion is slightly limited with pain at end ranges. 5/5 strength in all planes. Neurovascularly intact distally. X-rays ordered, obtained and reviewed at [facility]: 5 views of the right ankle and foot revealed no acute fracture or dislocation. There is a calcific body within the peroneal tendon distribution just proximal to the fifth metatarsal base. Impression: Peroneal tendinitis, right foot Plan: I explained the nature of the diagnosis with the patient and its treatment options both conservative and surgical. Recommended an ankle brace. Patient was given a boot at a previous appointment for this problem. Recommended she also continue to wear this and transition to the brace when she feels comfortable. She will follow-up with us on an as-needed basis. Prescription for meloxicam provided. The patient understands and agrees with the plan. They know to call if they have any further questions or concerns regarding their symptoms, or to follow up sooner if needed. The patient is ambulatory, but has weakness and/or instability of their extremity which requires stabilization from this semi-rigid/rigid orthosis to improve their function. Verbal and written instructions for the use and application of this item were given. Patient was instructed that should the brace result in increased pain, decreased sensation, increased swelling or an overall worsening of their medical condition, to please contact our office immediately. Not available 03/21/2025 12:13:09 Plan of Treatment Reminders Order Date Submit Date Provider Last Modified By Organization Details Last Modified Time Details Appointments None recorded. Lab None recorded. Referral None recorded. Procedures None recorded. Surgeries None recorded. Imaging XR, ankle + foot - ---3V FOOT WB, 2V ANKLE WB room 2 2024 025 [facility] [address] [facility] [address], [place], [address], 5 14:31:43 Medication Orders meloxicam 15 mg tablet 2024 025 [facility], [address], [place], [address], 5 09:55:20 Patient TargetsNo targets recorded. Patient InstructionsNo instructions recorded. Reason for Referral None Reported. Results Created Date Observation Date Name Description Value Unit Range Abnormal Flag Note LastModifiedBy Organization Detail LastModifiedTime 03/21/20 25 03/21/2025 XR, ankle + foot http:/ [email or web address] ?Encry pted=s hAaTro YD8dLq bEUv6g %2BXZw aYqtaq 0bqfl% 2Fg9IQ a4ajBk vP9nXo QUaueC m3YtLR FvZlgJ JJ8mAn HZtai3 6w9117 AC0Klb n6NUaS iKiQtr MwF INTERFACE [facility] Office [address], [place], [address], 03/21/2025 09:26:05 03/21/20 25 03/21/2025 XR, ankle + foot http:/ [email or web address] ?Encry pted=s hAaTro YD8dLq bEUv6g %2BXZw aYqtaq 0bqfl% 2Fg9IQ a4ajBk vP9nXo QUaueC m3YtLR FvZl JJ8mAn HZtai3 9g1261 AC0Klb n6NUaS iKiQtr MwF INTERFACE [facility] [address], [address], 03/21/2025 09:26:07 Result Notes Documentation Provider Name and Address Organization Details Recorded Time Xr, Ankle + Foot : [email or web address] Encrypted=jfLgJclNI2eSmbK Uv6g%4HNVrrBzatn7gdvc%2Fg 3DFg0klDcrV1bOePUltnGn9Ya NBObPjfONC4lKtQFojb94a958 8CH5Vgvz3WBjEcAcXyvSsX Not Available [facility] 03/21/2025 09:26: 06 Xr, Ankle + Foot : [email or web address] Encrypted=dyCuWbuRR0vKymC Uv6g%6PVMxjFkhif3hiki%2Fg 5OVs1smIajV0pTfSPjcxPv5Xy HHWbGhmSCG7iYbYEqme17e003 8JF4Jpxe4FSjMbHbYfdVoY Not Available [facility] 03/21/2025 09:26: 07 Problems Name Problem SNOMED Code Status Onset Date Resolution Date Notes Provider Name and Address Organization Details Recorded Time No complaints 483203912 Active Status : 'I'; Not Available [facility] 4 09:15:44 Pain in right foot 4818791750811 07 Active 2024 JESUS watters [place] - [facility] 5 09:04:59 Problem Notes None recorded. Medical Equipment None Reported. Allergies Allergen ID Allergen Name Allergen Category Reaction Reaction Severity Criticality Documentation Date Start Date Code Code System Note Provider Name and Address Organization Details Recorded Time 88332 Substance with sulfonami de structure and antibacte rial mechanism of action (substanc e) medicatio n Not available Not available Not available 10/25/20232009 26568 8003 SNOMED Aller gyRea ction : 'Skin React ion'; Not Available [facility] 4 13:40:21 64496 wheat gluten extract food Not available Not available Not available 10/25/20232009 36917 81 RxNorm Not Available [facility] 4 13:40:22 35382 codeine medicatio n Not available Not available Not available 10/25/20232022 2670 RxNorm Not Available [facility] 4 13:40:22 55866 Product containin g penicilli n (product) medicatio n Not available Not available Not available 10/25/20232022 79070 8001 SNOMED Not Available [facility] 4 13:40:22 Medications Name Sig Start Date Stop Date Status Note LastModified by Organization Details LastModified Time atorvastati n 10 mg tablet Take 1 tablet every day by oral route. active Not Available Not Available No t Available meloxicam 15 mg tablet Take 1 tablet every day by oral route after meal(s). 2024 active Not Available Not Available Not Avai lable pramipexole 0.5 mg tablet Take 1 tablet 3 times a day by oral route. active Not Available Not Available No t Available aspirin active Not Available Not Avail able Not Available levothyroxi ne active Not Available Not Available Not Available omeprazole active Not Available Not Av ailable Not Available ranitidine HCl raNITIdin e HCl 300MG Tablet 03/21 completed Statu s: 'Curr ent'; Not Available Not Available Not Available ibuprofen ibuprofen 200mg Tablet 2014 active Statu s: 'Curr ent'; Not Available Not Available Not Available lidocaine active Not Available Not Rina ilable Not Available Vitals Date Recorded Body height Body mass index (BMI) Body weight Provider Name and Address Organization Details Last Updated DateTime 03/21/2025 160.02 cm 29.2 kg/m2 80274.74 g KAYLIA L'HEUREUX [facility] 03/21/2025 09:00:15 Social History Question Answer Notes LastModified by [employer] Details LastModified Time Tobacco Smoking Status Never Smoker KAJODIE L'HEUREUX [facility] 03/21/2025 09:02:42 What Is Your Relationship Status? Single Information not available 03/21/2025 Sex: Unknown Functional Status Question Answer Note LastModified by Organizat ion Details LastModified Time Do you use any illicit or recreational drugs? No Information not available 03/21/2025 Do you or have you ever used any other forms of tobacco or nicotine? No Information not available 03/21/2025 What is your level of alcohol consumption? None Information not available 03/21/2025 Mental Status None recorded. Family History Nothing Reported. Medical History Condition Response Allergies/Hayfever N Coronary Artery Disease N Anxiety/Depression N Breathing or lung disorders N Emphysema N Nerve Disorders N Thyroid Problems Y COPD N Pacemaker N Anemia N Kidney/Bladder Problems N Vascular Disease N Heart Trouble N Heart Attack (AR) N Gastrointestinal Disease N Cholesterol N Diabetes N Autoimmune disease N Inflammatory Joint disease N Bleeding Disorder N Orthotics N Arthritis N Seizures/Epilepsy N Blood Clot N AIDS/HIV N Congestive Heart Failure (CHF) N Acid Reflux (GERD) N Cancer N Stroke N Asthma N Circulation Problems N Peripheral Vascular Disease N Sleep Apnea N Hepatitis N Heart Disease N Rheumatoid Arthritis N Arrhythmia N Pulmonary Embolism N Headaches N Fibromyalgia N Hypertension N Osteoporosis N Gynecological HistoryNo gynecological history recorded. Obstetrics History GPAL:G 0 P 0 0 0 0 Past Encounters Encounter ID Performer Location Encounter Start Date Encounter Closed Date Diagnosis/Indication Diagnosis SNOMED-CT Code Diagnosis ICD10 Code Diagnosis IMO Codes Diagnosis Note [id number] Villa Lowry PA-C [facility] - [place] [address] [place] [address] 03/21/2025 08:33:31 03/30/2025 14:31:43 Pain in right foot 9070343867 83141 M79.671 310424 Peroneal t endinitis of right lower limb 3110817697 59714 M76.71 [id number] I am prescribin g this patient oral Meloxicam. We had a lengthy discussion today regarding the nature of this medication including its indication s, contraindi cations, risks, and potential side effects. The patient is to take this medication once daily in the morning and is specifical ly instructed to take it with food in order to reduce the risk of gastrointe stinal upset. I explained to the patient that this medication often requires a couple of days before it reaches steady-sta te within the blood and as such the patient may not experience relief with this medication until after a few days of taking it. I also advised the patient that they should contact their primary care provider and cardiologi st to notify them that I have started this medication , as prolonged use of oral anti-infla mmatory pain medication s should be paired with routine assessment s of kidney function. Health Concerns Section Related Observation LastModified by Organization Detai ls LastModified Time None Recorded Concern Status LastModified by Organization Details LastModified Time None Recorded Advance Directives Directive None Recorded Payers Insurance Date Sequence Insurance Name Policy Number Policy Benitez Covered Member ID Benitez Member ID Guarantor Name 05/21/2025 1 [employer] [place] [facility] (EPO [id number] Yahaira Jaeger [id number] Yahaira Jaeger OBGyn Episode No OBEpisode recorded.
--- NOTE | 2025-05-30 07:28 | A.OFFVIS_ITS ---
Vital Signs 05/30/25 07:36 Height 5 ft 3 in Weight 167 lb 15.876 oz BMI 29.8 BP 115/74 Blood Pressure Location Lt brachial Position Sitting Pulse 74 Pulse Source Pulse Oximeter Pulse Oximetry (%) 98 Oxygen Delivery Method Room Air Intake Visit Reasons: My Rheumatoid panel is elevated. Intake Note: Patient presents for elevated Rheumatoid panel follow up. Allergies gluten (Gluten) Allergy (Severe, Verified 05/30/25 07:34) Gastrointestinal Upset Penicillins Allergy (Intermediate, Verified 05/30/25 07:34) Rash Sulfa (Sulfonamide Antibiotics) Allergy (Intermediate, Verified 05/30/25 07:34) Rash Codeine Phosphate Allergy (Intermediate, Uncoded 03/15/25 07:01) Nausea Medication List - Last Reconciled 05/30/25 by Daniella Pink MD aspirin (Adult Aspirin Regimen) 81 mg PO DAILY atorvastatin 10 mg PO DAILY cephalexin 500 mg PO Q8H 7 days cholecalciferol (vitamin D3) (Vitamin D3) 25 mcg PO DAILY diclofenac sodium 75 mg PO BID ibuprofen 1 tab PO TID PRN levothyroxine 75 mcg PO DAILY lidocaine 5% 1 patch topical DAILY PRN lorazepam 1 tab PO BID PRN omeprazole 20 mg PO DAILY pramipexole 1 mg PO BEDTIME HPI Comments Details: Patient is a 70-year-old female with hyperlipidemia, hypothyroidism, GERD and degenerative joint disease of the spine here today for follow up Interval History: Patient last seen 03/09/25 with me - New patient visit for evaluation of back pain - No concern for autoimmune disease at this time Today - Not on any rheum medications - Worsening right ankle pain - Labs sent show positive RF - Patient continues to deny prolonged AM stiffness involving her hands, wrists and feet - Ankle MRI showed edema and joint effusions - Also showed me a picture of a right elbow bursitis that ruptured Rheumatologic History: Initial History: Has a long history of back pain with surgery with spinal fusion 2004 and was doing well until the recent 2-3 years. Started around age 42 when she was working at [employer] doing a lot of lifting heavy objects No antecedent trauma prior to the worsening. Has been seeing pain management and ortho. Received spinal steroid injection that has not given prolonged relief. Was offered a spinal stimulator but patient declined Here today for other treatment options. Denies peripheral inflammatory arthritis symptoms No inflammatory back pain red flags such as no change with exercise, no alternating buttock pain, age of onset before 20 No personal or family history of IBD or any other autoimmune disease Current Rheumatology Medication(s): [facility] Medical History (Updated 05/30/25 @ 08:24 by Daniella Pink MD) Right ankle swelling Insertional tendinopathy of right Achilles tendon Chronic instability of ankle Sprain of calcaneofibular ligament of right ankle, initial encounter Sprain of anterior talofibular ligament of right ankle Right ankle sprain Transient neurological symptoms Hypersomnia Snoring Chest pain Crescendo angina Angina pectoris Hypothyroidism Low back pain COVID-19 vaccine series completed Anxiety GERD (gastroesophageal reflux disease) Celiac disease Restless leg syndrome Surgical History Hx of bilateral cataract extraction History of esophagogastroduodenoscopy (EGD) Hx of colonoscopy Hx of foot surgery Hx of tonsillectomy Hx of appendectomy History of back surgery Family History Daughter Celiac disease Social History Household Members: Children Household Members Other:: son age 17 Housing: House Are you a primary post acute care nurse practitioner to a significant other at home: No Do you presently have visiting nurse or other home services: No Alcohol intake: current Alcohol intake frequency: holidays/special occasions only Patient Tobacco Use Status: Former Tobacco user Tobacco use type: Cigarette Advance Directives Date on File: 03/14/21 service: No Current occupational status: employed 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 Review of Systems Const Details: Review of Systems Constitutional: Denies fever, chills, weight loss ENT: Denies vision changes, eye pain or eye redness, dental caries, dry mouth GI: Denies nausea, vomiting, diarrhea, abdominal pain, change in BM Pulm: Denies SOB, MENCHACA, hemoptysis, wheezing Cards: Denies chest pain, palpitations Skin: Denies Raynaud's, rash, nail changes, photosensitivity, EDGER TECHNICIAN: Denies headaches, weakness, paresthesias, recurrent falls MSK: as per HPI All other systems reviewed and are unremarkable except noted above Physical Exam Exam Exam: Vital signs reviewed Physical Examination CONSTITUITIONAL Patient alert and cooperative. Well appearing and in no apparent painful distress MSK Hands * Right Hand: Able to make a fist. No swelling or tenderness to palpation of the MCPs, PIPs or DIPs. * Left Hand: Able to make a fist. No swelling or tenderness to palpation of the MCPs, PIPs or DIPs. * Herbedens nodes noted bilaterally Wrists * Right Wrist: Full ROM to flexion and extension. No swelling or TTP * Left Wrist: Full ROM to flexion and extension. No swelling or TTP Elbows * Right Elbow: Full ROM. No swelling or TTP. No TTP of the medial epicondyle. No TTP of the lateral epicondyle * Left Elbow: Full ROM. No swelling or TTP. No TTP of the medial epicondyle. No TTP of the lateral epicondyle Shoulders * Right shoulder: No swelling noted. No TTP of the AC joint. No TTP of the subacromial bursa. No TTP of the posterior shoulder * Left shoulder: No swelling noted. No TTP of the AC joint. No TTP of the subacromial bursa. No TTP of the posterior shoulder Knees * Right knee: No swelling noted. No TTP of the knee joint line. No TTP of pes anserine bursa * Left knee: No swelling noted. No TTP of the knee joint line. No TTP of pes anserine bursa. * Crepitations felt bilaterally Ankles * Right ankle: In Boot * Left ankle: Good ankle dorsiflexion and plantar flexion. No swelling. No TTP of the ankle joint Feet * Right foot: Negative squeeze test * Left foot: Negative squeeze test Tender points? * No tenderness to palpation of the bilateral trapezius, supraspinatus, anterior costochondral junctions, bilateral suboccipital muscle insertions SKIN No rashes Vital Signs: Last Vital Signs Pulse 74 05/30/25 07:36 BP 115/74 05/30/25 07:36 Pulse Ox 98 05/30/25 07:36 Oxygen Delivery Method Room Air 05/30/25 07:36 BMI result Body Mass Index 29.8 Results Reviewed Results Reviewed: Laboratory Tests 03/12/25 03/30/25 05/30/25 09:07 14:06 08:41 WBC 7.7 RBC 4.69 Hgb 13.2 Hct 42.2 Plt Count 339 ESR 9 Sodium 141 Potassium 4.5 D Chloride 110 H Carbon Dioxide 26 BUN 11 Creatinine 0.88 Uric Acid 3.8 Calcium 9.9 Magnesium 2.2 AST 40 H ALT 31 C-Reactive Protein 2.99 H 0.20 PTH Intact 107.4 H Laboratory Tests 03/30/25 05/30/25 14:06 08:41 Rheumatoid Factor 21.0 H Cycl Citrul Peptide IgG Pending Laboratory Tests 05/30/25 08:41 Hepatitis A IgM Ab Nonreactive Hep Bs Antigen Negative Hep Bs Antibody NONREACTIVE Hep B Core Total Ab Nonreactive Hepatitis C Ab (EIA) Nonreactive MR Right Ankle 04/2025 Findings: There is edema and cystic change in the navicular bone and medial cuneiform, degenerative. Intact articulations. Mild osteophytes. Small tibiotalar and subtalar joint effusions. Normal talar dome and subtalar joint cartilage. The Achilles tendon is increased in size and signal with mild peritendinous edema. The flexor and extensor tendons are intact. Deltoid ligament is intact. There is increased signal in the calcaneofibular and anterior talofibular ligaments. Normal anterior tibiofibular, posterior tibiofibular and posterior talofibular ligaments. Plantar fascia is intact and normal in size and signal. There is a calcaneal spur. No muscular atrophy. There is edema in the musculature and subcutaneous fat. Impression: Edema and cystic change in the navicular and medial cuneiform, degenerative. Small tibiotalar and subtalar joint effusions. Achilles tendinopathy with question of interstitial tears and mild peritendinitis. Sprain of the calcaneofibular and anterior talofibular ligaments. Edema in the soft tissues. XR Right Elbow 03/2025 FINDINGS: No displaced fat pad is evident at the elbow joint. Joint spaces are preserved. There is no malalignment the bony structures. No fracture line is evident. There is posterior medial soft tissue swelling. IMPRESSION: Posterior medial soft tissue. No acute bony abnormality. XR Right Foot 02/2025 FINDINGS: No acute cortical disruption. No gross malalignment. Degenerative changes in the first tarsometatarsal joint. No lytic or blastic lesions. Small spur, calcaneus. No subcutaneous emphysema. No gross joint effusion. Prominent soft tissues in the distal dorsal aspect of the foot. IMPRESSION: Soft tissue edema without subcutaneous emphysema. No acute fracture or dislocation. No osteomyelitis on x-ray. Assessment & Plan Assessment & Plan (1) Calcium pyrophosphate deposition disease (CPPD): Code(s): M11.20 - Other chondrocalcinosis, unspecified site Plan: #?CCPD vs RA Patient is a 70-year-old female with known lumbar spondylosis here today for evaluation of right ankle pain and swelling. MRI shows edema and cystic change of the navicular bone as well as tibiotalar/subtalar joint effusions. She also has a very mildly positive RF. It is quite unusual for the presentation of rheumatoid arthritis to be monoarticular and non symmetrical. Usually rheumatoid arthritis is asymmetrical disease involving the small joints of the hands and wrists as well as feet. I am inclined to think that she may have crystal disease. Her uric acid was normal so the other crystal disease that can potentially do this is CPPD. Unfortunately when she had the olecranon bursitis no fluid was taken and it ruptured spontaneously leading to ecchymosis of her arm (patient has showed me pictures). Without sampling joint fluid it will be difficult to confirm the diagnosis of CPPD. I think we will need to pursue dual energy CT, if not I think doing a trial of colchicine maybe the best next step Plan - Dual Energy CT of the right ankle - Labs today: Magnesium, parathyroid hormone, CCP, Magnesium, CMP, ESR, CRP, CBC - RTC 4 months or sooner with results Plan I spent 40 minutes reviewing the record and labs, taking a history, examining the patient, discussing the treatment plan, ordering diagnostic work up and documenting in the medical record Orders: Orders C Reactive Protein Today M25.473 - Effusion, unspecified ankle Erythrocyte Sedimentation Rate Today M25.473 - Effusion, unspecified ankle Magnesium Today M25.473 - Effusion, unspecified ankle Parathyroid Hormone Intact Today M25.473 - Effusion, unspecified ankle Cyclic Citrullinated Peptide Today M25.473 - Effusion, unspecified ankle Hepatitis A,B,C Profile Today M25.473 - Effusion, unspecified ankle Complete Blood Count Auto Diff Today M25.473 - Effusion, unspecified ankle Comprehensive Met. Panel Today M25.473 - Effusion, unspecified ankle Medications: Refilled cephalexin 500 mg PO Q8H 21 caps 0RF 7 days Coding Level of Care Code Est Pt Level 5 (73455) Complex EM visit Add On G2211 Diagnoses Calcium pyrophosphate deposition disease (CPPD) M11.20
[2025-05-30 07:36] VITALS: BP 115/74; PULSE 74; O2SAT 98; BMI 29.8
== END 2025-05-30 08:31 | disposition home or self-care (01) ==
LOC: HO.RHES 07:14
PROVIDERS: PCP Physician Assistant Surgical; Visit Provider Student in an Organized Health Care Education/Training Program
DX: M11.20 Other chondrocalcinosis, unspecified site (principal)
CPT/HCPCS: 99215

== ENCOUNTER 2025-06-05 06:27 | Outpatient (REF) | payer OTHER, SELFPAY ==
--- OUTSIDE RECORDS SUMMARY | 2020-03-16 09:25 | XMS_ITS | Encounter Summary ---
Author Organization [facility] Address [address] [employer] [facility] [address] [place] [address] Phone Care Team Providers Care Automobile Contract Clerk Name Role Phone Rachna Bernard GRADUATE ASSISTANT Primary Care Provider [phone] Encounter Details Date Type Department Care Team (Late st Contact Info) Description 03/16/2020 9:25 AM EDT Hospital Encounter [facility] [address] [place] [address] Varsha Britton, ANNOUNCER 30 [place] [address] [email or web address] Social History Tobacco Use Types Packs/Day Years [...] EST Office Visit [facility] 40 [place] [address] Miguel Juan PA-C 40 [place] [address] [email or web address] documented as of this encounter Procedures Procedure [...] AM EDT No significant bony abnormality. POS [id number] Narrative 03/16/2020 9:51 AM EDT Frontal and lateral views disclose no fracture, subluxation, or other significant abnormality involving the visualized regional skeletal structures. Procedure Note Jarad Goodrich MD - 03/16/2020 Frontal and lateral views disclose no fracture, subluxation, or othersignificant abnormality involving the visualized regional skeletalstructures. IMPRESSION: No significant bony abnormality. POS [id number] Varsha Britton ANNOUNCER IMG XR UPPER EXTREMITY Final Result documented [...] documented as of this encounter Care Teams Automobile Contract Clerk Relationship Specialty Start Date End Date Rachna Bernard NP [email or web address] PCP - General Family Medicine 08/18/17 11/17/23 documented as of this encounter Additional Source Comments The information contained in this document represents components of the legal health record. It is not the complete legal health record.[facility]
--- NOTE | ~2025-06-05 | FL_ITS ---
EXAMINATION: FL GUIDANCE ONLY HISTORY: M53.3 - Sacrococcygeal disorders, not elsewhere classified COMPARISON: None available. TECHNIQUE: Fluoroscopy time: 16.9 seconds. Cumulative Dose: 5.4720 mGy. DAP: 1.7087 Gycm2 Images: 4. FINDINGS: Fluoroscopic spot films of the pelvis demonstrate needles and contrast material in the regions of the bilateral sacroiliac joints. FL/FL guidance in treatment room IMPRESSION: Fluoroscopy during procedure. Please see procedure report for additional information. Electronically signed by: Ronaldo Castillo MD 06/05/2025 03:50 PM EDT
--- OUTSIDE RECORDS SUMMARY | 2025-06-05 06:30 | XMS_ITS | Encounter Summary ---
Author Organization [facility] Address [address] [place] [address] [place] [address] Phone Care Team Providers Care Linotype Operator Name Role Phone Miguel Juan PA-C Primary Care Provider [phone] Reason for Referral * MRI/CAT Scan - Closed Specialty Diagnoses / Procedures Referred By Elvira raya Referred To Contact Radiology Procedures Outside MR Extremity Lower report Only [facility] Internal Medicine [address] [place] [address] Phone: tel: fax: Referral ID Status Reason Start Date Expiration Date Visits Re quested Visits Authorized [id number] Closed 05/14/2025 1 1 Encounter Details Date Type Department Care Team (Late st Contact Info) Description 05/14/2025 Orders Only [facility] Internal Medicine [address] [place] [address] rKistian Young MD [address] [place] [id number] Social History Tobacco Use Types Packs/Day [...] Description 08/09/2025 8:00 AM EST Office Visit [facility] Internal Medicine [address] [place] [address] Miguel Juan PA-C [address] [place] [address] [email or web address] documented as of this encounter Procedures Procedure [...] documented as of this encounter Care Teams Linotype Operator Relationship Specialty Start Date End Date Miguel Juan PA-C [address] [place] [address] [email or web address] PCP - General Physician Tactical Debriefer 10/16/24 documented as of this encounter Additional Source Comments The information contained in this document represents components of the legal health record. It is not the complete legal health record.[facility]
--- OUTSIDE RECORDS SUMMARY | 2025-06-05 06:30 | XMS_ITS | Encounter Summary ---
Author Organization [facility] Address [address] [place] [address] [place] [address] Phone Care Team Providers Care Director Of Radio Services Name Role Phone Vimal Merino MD Unavailable Rosalio Galeana MD Unavailable Rachna Bernard DIRECTOR INTEGRATED Unavailable [phone] Rachna Bernard DIRECTOR INTEGRATED Primary Care Provider Ami Hoffman SHIPFITTERS SUPERVISOR Primary Care Provider [phone] Miguel Juan PA-C Primary Care Provider [phone] Encounter Details Date Type Department Care Team (Latest Contact Info) Description 02/17/2018 Transcribe Orders [facility] Laboratory [address] [place], [place] [id number] Heath Moy MD [address] [place] [address], [address] [place], [place] [id number] [email or web address] MS (multiple sclerosis) (Primary Dx) Social [...] Description 08/09/2025 8:00 AM EST Office Visit [facility] Internal Medicine [address] [place] [address] Miguel Juan PA-C [address] [place] [address] [email or web address] documented as of this encounter Results * Miscellaneous lab test (02/17/2018 3:32 PM EDT) TESTS REQUESTED MYELIN OLIGODENDROCYTE GLYCOPROTEIN [facility] SPECIMEN/TUBE TYPE RED TOP [facility] REQUEST RECEIVED Request received. A separate order for the requested test will be generated by the laboratory. [facility] Blood 02/17/2018 3:32 PM EDT 02/17/2018 3:41 PM EDT us Heath Moy MD LAB BLOOD ORDERABLES Final R esult Performing Organization Address City/State/[facility] Co de Phone Number [facility] [address] [place] [address] documented in this encounter Visit Diagnoses Diagnosis [...] of this encounter Care Teams Director Of Radio Services Relationship Specialty Start Date End Date Rachna Bernard NP [address] [facility] [address] [place] [address] PCP - General Family Medicine 08/18/17 11/17/23 Ami Hoffman FNP 15 [facility] [address] [place] [address] PCP - General Nurse Practitioner 11/18/23 10/15/24 Miguel Juan PA-C [address] [place] [address] PCP - General Physician Cardiac Rehab Nurse 10/16/24 Vimal Merino MD [address] [place] [address] Historical LMR Provider 06/08/17 12/07/19 Rosalio Galeana MD [address] [facility], 2nd [place] [address] Historical LMR Provider 06/08/17 12/07/19 Rachna Bernard NP [address] [facility] [place] [place] [address] [place] [address] Historical LMR Provider 06/08/17 12/07/19 documented as of this encounter Additional Source Comments The information contained in this document represents components of the legal health record. It is not the complete legal health record.[facility]
--- OUTSIDE RECORDS SUMMARY | 2025-06-05 06:30 | XMS_ITS | Encounter Summary ---
Author Organization [facility] Address [address] [place] [address] [place] [address] Phone Care Team Providers Care Thread Roller Name Role Phone Miguel Juan PA-C Primary Care Provider [phone] Encounter Details Date Type Department Care Team (Late st Contact Info) Description 06/01/2025 Orders Only [facility] Internal Medicine [address] [place] [address] Provider, MD Kristian [facility] [place] [address] Social History Tobacco Use Types Packs/Day Years [...] AM EST Office Visit [facility] Internal Medicine [address] [place] [address] Miguel Juan PA-C [address] [place] [address] documented as of this encounter Procedures Procedure Name Priority Date/Time Associated Diagnosis Comments OUTSIDE LAB Routine 05/30/2025 11:34 AM EDT documented in this encounter Results * Outside Lab (05/30/2025 11:34 AM EDT) us Historical Provider LAB BLOOD ORDERABLES Loren l Result documented in this encounter Visit Diagnoses Not on filedocumented in this encounter Additional Health Concerns Assessment Noted Time PHQ-2 Depression Total Score: 0 01/23/20 12:24 PM EDT documented as of this encounter Care Teams Thread Roller Relationship Specialty Start Date End Date Miguel Juan PA-C [address] [place] [address] [email or web address] PCP - General Physician Donor Technician 10/16/24 documented as of this encounter Additional Source Comments The information contained in this document represents components of the legal health record. It is not the complete legal health record.[facility]
--- OUTSIDE RECORDS SUMMARY | 2025-06-05 06:30 | XMS_ITS | Data Portability ---
Author Organization [facility] Address [address] [place] [address] Care Team Providers Care Instrument And Control Service Person Name Role Phone MARIAH NORTH Primary Care [...] distally. X-rays ordered, obtained and reviewed at [facility]: 5 views of the right ankle [...] condition, to please contact our office immediately. [email or web address] Not available 03/21/2025 12:13:09 Plan of Treatment Reminders Order Date Submit Date Provider Last Modified By Organization Details Last Modified Time Details Appointments None recorded. Lab None recorded. Referral None recorded. Procedures None recorded. Surgeries None recorded. Imaging XR, ankle + foot - ---3V FOOT WB, 2V ANKLE WB room 2 2024 025 [facility] [place] [facility], [address] [facility] [facility] [address], [place], [address], 5 14:31:43 Medication Orders meloxicam 15 mg tablet 2024 025 [facility], [address] [facility], [place], [address], 5 09:55:20 Patient TargetsNo targets recorded. Patient InstructionsNo instructions recorded. Reason for Referral None Reported. Results Created Date Observation Date Name Description Value Unit Range Abnormal Flag Note LastModifiedBy Organization Detail LastModifiedTime 03/21/20 25 03/21/2025 XR, ankle + foot http:/ [email or web address] ?Encry pted=s hAaTro YD8dLq bEUv6g %2BXZw aYqtaq 0bqfl% 2Fg9IQ a4ajBk vP9nXo QUaueC m3YtLR FvZlgJ JJ8mAn HZtai3 8j4856 AC0Klb n6NUaS iKiQtr MwF INTERFACE [facility] [address] [facility] [address], [place], [address], 03/21/2025 09:26:05 03/21/20 25 03/21/2025 XR, ankle + foot http:/ [email or web address] ?Encry pted=s hAaTro YD8dLq bEUv6g %2BXZw aYqtaq 0bqfl% 2Fg9IQ a4ajBk vP9nXo QUaueC m3YtLR FvZl JJ8mAn HZtai3 5o9942 AC0Klb n6NUaS iKiQtr MwF INTERFACE [facility] [address], [address], 03/21/2025 09:26:07 Result Notes Documentation Provider Name and Address Organization Details Recorded Time Xr, Ankle + Foot : [email or web address] Encrypted=faMeUgbHC4dPbmY Uv6g%4UVRqaKoezv8obnv%2Fg 9ZIn0ltSjkP7eSzGIlhoOw4Bu SLEmCevGVK8kHeQBwpe08k140 5JD0Tvlm9UFsKmSjGgyAvA Not Available [facility] 03/21/2025 09:26: 06 Xr, Ankle + Foot : [email or web address] Encrypted=czBaNjeLN5zCncB Uv6g%4SBPfcOddrh7gvjy%2Fg 7IPb4mkHcbX0fEqNHygpOl4Uc KTOvSgwHBS3oArWVabc66n691 9GT9Wgxe2GXmAuEmQgcYqP Not Available [facility] 03/21/2025 09:26: 07 Problems Name Problem SNOMED Code Status Onset Date Resolution Date Notes Provider Name and Address Organization Details Recorded Time No complaints 449250703 Active Status : 'I'; Not Available [facility] 4 09:15:44 Pain in right foot 9709448698333 07 Active 2024 JESUS watters [place] - [facility] 5 09:04:59 Problem Notes None recorded. Medical Equipment None Reported. Allergies Allergen ID Allergen Name Allergen Category Reaction Reaction Severity Criticality Documentation Date Start Date Code Code System Note Provider Name and Address Organization Details Recorded Time 47315 Substance with sulfonami de structure and antibacte rial mechanism of action (substanc e) medicatio n Not available Not available Not available 10/25/20232009 85164 8003 SNOMED Aller gyRea ction : 'Skin React ion'; Not Available [facility] 4 13:40:21 17096 wheat gluten extract food Not available Not available Not available 10/25/20232009 98165 81 RxNorm Not Available [facility] 4 13:40:22 09559 codeine medicatio n Not available Not available Not available 10/25/20232022 2670 RxNorm Not Available [facility] 4 13:40:22 52296 Product containin g penicilli n (product) medicatio n Not available Not available Not available 10/25/20232022 38486 8001 SNOMED Not Available [facility] 4 13:40:22 Medications Name Sig Start Date [...] Updated DateTime 03/21/2025 160.02 cm 29.2 kg/m2 29725.74 g KAYLIA L'HEUREUX [facility] 03/21/2025 09:00:15 Social History Question Answer Notes LastModified by Organizat ion Details LastModified Time Tobacco Smoking Status Never Smoker [employer] [facility] 03/21/2025 09:02:42 What Is Your Relationship Status? [...] Response Allergies/Hayfever N Coronary Artery Disease N Breathing or lung disorders N Anxiety/Depression N Emphysema N Nerve Disorders N Thyroid Problems Y COPD N Pacemaker N Kidney/Bladder Problems N Anemia N Vascular Disease N Heart Trouble N Heart Attack ([place]) N Gastrointestinal Disease N Cholesterol N Diabetes N Autoimmune disease N Inflammatory Joint disease N Bleeding Disorder N Orthotics N Seizures/Epilepsy N Arthritis N Blood Clot N AIDS/HIV N Congestive Heart Failure (CHF) N Acid Reflux (GERD) N Cancer N Stroke N Asthma N Circulation Problems N Peripheral Vascular Disease N Sleep Apnea N Hepatitis N Heart Disease N Rheumatoid Arthritis N Pulmonary Embolism N Arrhythmia N Headaches N Fibromyalgia N Hypertension N Osteoporosis N Gynecological HistoryNo gynecological history recorded. Obstetrics History GPAL:G 0 P 0 0 0 0 Past Encounters Encounter ID Performer Location Encounter Start Date Encounter Closed Date Diagnosis/Indication Diagnosis SNOMED-CT Code Diagnosis ICD10 Code Diagnosis IMO Codes Diagnosis Note [id number] Villa Lowry PA-C [place] [facility] [place] [address] [place] [address] 03/21/2025 08:33:31 03/30/2025 14:31:43 Pain in right foot [id number] 59806 M79.671 850927 Peroneal t endinitis of right lower limb 5584090691 81954 M76.71 [id number] I am prescribin g this patient oral [...] Name 05/21/2025 1 [facility] [facility] [facility] (EPO [id number] Yahaira Jaeger [id number] 197 Yahaira Jaeger OBGyn Episode No OBEpisode recorded.
--- OUTSIDE RECORDS SUMMARY | 2025-06-05 06:30 | XMS_ITS | Clinical Summary ---
Author Organization [facility] Address [address] [place] [address] Phone Care Team Providers Care Comb Machine Operator Name Role Phone Miguel Juan PA-C Primary Care Provider [phone] Allergies Active Allergy Reactions Criticality Noted Date [...] 3 01/26/20 25 Active lidocaine (LIDODERM) 5 %Indications:Clinic Charge Nurse chrissy bilateral low back pain with left-sided [...] 30 tablet 11 08/21/20 24 025 Discontinued diclofenac sodium (VOLTAREN) 75 MG EC tablet Take 1 tablet (75 mg total) by mouth 2 (two) times a day. 14 tablet 05/03/20 25 025 Discontinued(R janie) Active Problems Problem Noted Date Diagnosed Date Acute right ankle pain 05/03/2025 Assessment & Plan (05/03/2025 9:50 AM EDT): Patient mentions that back in January she developed right ankle pain after walking down the stairs. She denies any trauma or history of popping sensation. She was seen at the [facility] x 2 and had undergone right [...] any relief. She was seen by at [facility] optical manufacturing technician who switched her out of the boot [...] -Patient has an appointment coming up with [facility] on 05/11 patient was advised to keep [...] she does have an appointment scheduled with [facility] on 05/11 for further evaluation. Of note [...] without improvement on prednisone, will refer to [facility] per patient request. Also, given the [...] EDT): Patient underwent laboratory data done at [facility]. Her labs were discussed during her office visit. She is up-to-date on her colonoscopy, mammogram and Pap smear will be completed this coming fall at [facility]. Annual physical 1 year Migraine without aura [...] up with neurology and referral placed to [facility] per patient request Urine frequency 12/14/2023 [...] back pain. She has been seen by [facility] with noted cortisone injections. She has been managing her pain with PT, ibuprofen, stretching, heat, and lidocaine patches. During her last visit in January, she asked to have her PMLA extended. Patient is a will be undergoing cortisone injections through [facility] in the upcoming weeks Assessment & Plan (03/13/2025 10:29 PM EDT): Chronic, unchanged, though symptoms are significantly impacting function today. [facility] or [facility] Assessment & Plan (01/25/2025 8:09 AM EDT): Patient follows closely with [facility] and has undergone cortisone [...] therapy for continuation of care from previous [facility] physical therapy work -Continue ibuprofen, lidocaine patches and heat for pain management in addition to activity modification and gentle stretching Assessment & Plan (04/14/2024 9:44 AM EDT): Continue follow-up with [facility] as she notes that she prefers their office over [facility]. Does note that previous injections were helpful for recent travel to [place]. Hypothyroidism 12/21/2017 Assessment & Plan (05/03/2025 7:53 [...] Encounters Date Type Department Care Team Description 06/04/2025 Refill [facility] Internal Medicine [address] [facility] [place] [address] Miguel Juan PA-C Medication Refill 06/01/2025 Orders Only [facility] Internal [facility] [address] [place] [address] Kristian Young MD 05/28/2025 Refill [facility] Internal Medicine [address] [place] [address] Ami Hoffman, LINDA Medication Refill 05/14/2025 Orders Only [facility] Internal Medicine [address] [place] [address] Kristian Young MD 05/03/2025 8:00 AM EDT Office Visit [facility] Internal [facility] [address] [place] [address] Miguel Juan PA-C Mixed hyperlipidemia (Primary Dx); Acquired hypothyroidism; Chronic bilateral low back pain with left-sided sciatica; Olecranon bursitis of right elbow; Acute right ankle pain 04/03/2025 Orders Only [facility] Internal Medicine [address] [place] [address] Kristian Young MD 04/02/2025 Orders Only [facility] Internal [facility] [address] [place] [address] Kristian Young MD 03/30/2025 1:00 PM EDT Office Visit [facility] Internal Medicine [address] [place] [address] Miguel Juan PA-C Carey, Samantha, PA-C Olecranon bursitis of right elbow (Primary Dx) 03/28/2025 Documentation [facility] Internal [facility] [address] [facility] [place] [address] Miguel Juan PA-C 03/28/2025 Orders Only [facility] Internal [facility] [address] [place] [address] Kristian Young MD 03/15/2025 Orders Only [facility] [address] [place] [address] Kristian Young MD 03/14/2025 Orders Only [facility] Internal [facility] [address] [place], [place] [phone] Boris Roberts MD Poison mis dermatitis (Primary Dx) 03/13/2025 1:30 PM EDT Office Visit [facility] [address] [facility] [place] [address] Lizett Riddle, REAL Achilles tendinitis of right lower extremity (Primary Dx); Elevated C-reactive protein (CRP); Spasm of both trapezius muscles; Poison mis dermatitis; Chronic bilateral low back pain with left-sided sciatica 03/13/2025 Orders Only [facility] Internal [facility] [address] [place], [place] [phone] Kristian Young MD 03/12/2025 Orders Only [facility] Internal [facility] [address] [place], [place] [address] Kristian Young MD 03/12/2025 Telephone [facility] [address] [facility], [place] [phone] Ewa Longo, ALEJANDRA Appointment from Last 3 [...] 8:00 AM EST Office Visit [facility] Internal Medicine [address] [place] [address] Miguel Juan PA-C [address] [place] [address] [email or web address] Due Date Last Done Comments [...] OUTSIDE LAB Routine 05/30/2025 11:34 AM EDT OUTSIDE MR EXTREMITY LOWER REPORT ONLY Routine [...] Relevant to Health Maintenance Results * Outside Lab (05/30/2025 11:34 AM EDT) Only the most recent of3 resultswithin the time period is included. [facility] Provider LAB BLOOD ORDERABLES Loren l Result * Outside MR Extremity Lower report Only (05/10/2025 8:24 AM EDT) [facility] Provider MD DAUGHERTY MR EXTREMITY Final Re sult * Lyme Screen with Reflex to Immunoblot, Blood (03/30/2025 3:50 PM EDT) [facility] Provider LAB BLOOD ORDERABLES Loren l Result * Rheumatoid factor (03/30/2025 3:50 PM EDT) [facility] Provider LAB BLOOD ORDERABLES Loren l Result * Uric acid (03/30/2025 3:50 PM EDT) [facility] Provider LAB BLOOD ORDERABLES Loren l Result * Outside XR Extremity Upper Report Only (03/27/2025 7:51 AM EDT) [facility] Provider MD DAUGHERTY XR UPPER EXTREMITY Fi nal Result * Outside XR Imaging Report Only (03/27/2025 7:46 AM EDT) Result [facility] IMG XR CHEST Final Res ult * Outside XR Imaging Report Only (03/15/2025 8:10 AM EDT) Result [facility] IMG XR CHEST Final Res ult * Outside Potassium Level (03/15/2025) [facility] Potassium level - External 3.4 3.4 - 5.0 mmol/L Result [facility] LAB BLOOD ORDERABLES Loren l Result * Outside Serum Creatinine Level (03/15/2025) [facility] Creatinine, serum - External 0.8 0.8 - 1.3 mg/dL Result [facility] LAB BLOOD ORDERABLES Loren l Result * Outside ALT Level (03/15/2025) [facility] ALT - External 14 5 - 30 U/L Result [facility] LAB BLOOD ORDERABLES Loren l Result * Outside XR??Chest Report Only (03/12/2025 4:18 PM EDT) Result [facility] IMG XR CHEST Final Res ult * Outside XR Extremity Lower Report Only (03/12/2025 4:02 PM EDT) Result [facility] IMG XR LOWER EXTREMITY Fi nal Result * Outside Imaging Report Only (03/12/2025 10:12 AM EDT) Result [facility] IMG XR CHEST Final Res ult * Outside TSH Level (01/13/2025) [facility] TSH - External 0.61 0.5 - 5 uIU/L Result [facility] LAB BLOOD ORDERABLES Loren l Result * Outside Glucose,Fasting (01/13/2025) [facility] Glucose, fasting - External 96 65 - 99 mg/dL Result [facility] Historical Provider LAB BLOOD ORDERABLES Loren l Result * Outside HDL (01/13/2025) HDL - External 44 40 - 80 mg/dL Result [facility] Historical Provider LAB BLOOD ORDERABLES Loren [...] NP LAB BLOOD ORDERABLES Final Resu lt [facility] [address] [place], [place] [id number] * COLONOSCOPY FOR RESULT ENTRY ONLY (06/20/2021) Historical [facility] Edited Result - Final from Last 3 Months or Most Recently Relevant to Health Maintenance Insurance [employer] ADMINISTRAT[employer] BENEFITS ADMINISTRATORS [employer]EF[employer]MINIST[employer]ATORS [employer] BENEFITS ADMINISTRATORS [employer] BENEF[employer] ADMINISTRATORS [employer] BENEFITS ADMINISTRATORS [employer] BENEFITS ADMINISTRATORS [employer] ADMINISTRAT[employer] BENEFITS ADMINISTRATORS Care Teams Comb Machine Operator Relationship Specialty Start Date End Date Miguel Juan PA-C [address] [place] [address] [email or web address] PCP - General Physician Sales Apprentice 10/16/24 Additional Source Comments The information contained in this document represents components of the legal health record. It is not the complete legal health record.[facility]
--- OUTSIDE RECORDS SUMMARY | 2025-06-05 06:30 | XMS_ITS | Encounter Summary ---
Author Organization [facility] Address [address] [place] [address] [place] [address] Phone Care Team Providers Care Mobility Architect Manager Name Role Phone Rachna Bernard TITLE I INSTRUCTIONAL ASSISTANT Primary Care Provider Ami Hoffman Primary Care Provider Miguel Juan PA-C Primary Care Provider [phone] Encounter Details Date Type Department Care Team (Late st Contact Info) Description 06/21/2023 Nurse Triage [facility] Internal Medicine [address] [place] [address] Rachna Bernard TITLE I INSTRUCTIONAL ASSISTANT [address] [facility] [address] [place] [address] [email or web address] Social History Tobacco Use Types Packs/Day Years [...] high school, GED, job training, learning the Upper Sorbian language, technical skills, or developing parenting skills)? [...] SOB Protocols used: CORONAVIRUS (COVID-19) DIAGNOSED OR [id number] Nurse Triage Encounter Note Reason for Triage Yahaira Jaeger contacted office for None Call Disposition Home Care Patient/caregiver understands and will follow disposition: Unsure Patient/caregiver understands and will follow care advice: Disposition Comments: Protocols used: Coronavirus (Covid-19) Diagnosed Or Dctegnjge-Otpvd-Dl Initial Symptom Screening and Assessment IA None [...] either acetaminophen or ibuprofen. * They are ycim-zzp-gyruplu (OTC) drugs that help treat both fever [...] Description 08/09/2025 8:00 AM EST Office Visit [facility] Internal Medicine [address] [place] [address] Miguel Juan PA-C [address] [place] [address] [email or web address] documented as of this encounter Visit Diagnoses Not on filedocumented in this encounter Additional Health Concerns Infection Onset Date Last Indicated Resolved Time CoV-Risk 07/01/2024 07/01/2024 07/12/2024 1:21 AM EST Assessment Noted Time PHQ-2 Depression Total Score: 0 08/18/20 22 3:41 PM EST documented as of this encounter Care Teams Mobility Architect Manager Relationship Specialty Start Date End Date Rachna Bernard TITLE I INSTRUCTIONAL ASSISTANT PCP - General Family Medicine 08/18/17 11/17/23 Ami Hoffman FNP [address] [address] PCP - General Nurse Practitioner 11/18/23 10/15/24 Miguel Juan PA-C [address] [place] [address] PCP - General Physician Disk Recordist 10/16/24 documented as of this encounter Additional Source Comments The information contained in this document represents components of the legal health record. It is not the complete legal health record.[facility]
--- OUTSIDE RECORDS SUMMARY | 2025-06-05 06:30 | XMS_ITS | Encounter Summary ---
Author Organization [facility] Address [address] [place] [address] [place] [address] Phone Care Team Providers Care Nuclear Engineer Name Role Phone Miguel Juan PA-C Primary Care Provider [phone] Reason for Visit * Reason Comments Medication Refill Encounter Details Date Type Department Care Team (Late st Contact Info) Description 06/04/2025 Refill [facility] Internal Medicine [address] [place], [place] [phone] Miguel Juan PA-C [address] [place] [address] [email or web address] Medication Refill Social History Tobacco Use Types [...] Description 08/09/2025 8:00 AM EST Office Visit [facility] Internal Medicine [address] [place] [address] Miguel Juan PA-C [address] [place] [address] [email or web address] documented as of this encounter Visit Diagnoses Not on filedocumented in this encounter Additional Health Concerns Assessment Noted Time PHQ-2 Depression Total Score: 0 01/23/20 25 12:24 PM EDT documented as of this encounter Care Teams Nuclear Engineer Relationship Specialty Start Date End Date Miguel Juan PA-C [address] [place] [address] PCP - General Physician Steam Crane Operator 10/16/24 documented as of this encounter Additional Source Comments The information contained in this document represents components of the legal health record. It is not the complete legal health record.[facility]
== END 2025-06-05 06:28 | disposition home or self-care (01) ==
LOC: CF 06:27
PROVIDERS: Visit Provider Anesthesiology
DX: M46.1 Sacroiliitis, not elsewhere classified (principal); M53.3 Sacrococcygeal disorders, not elsewhere classified
CPT/HCPCS: 27096; J2003; J2795; Q9967

== ENCOUNTER 2025-06-05 14:51 | Outpatient (AMB) | payer OTHER, SELFPAY ==
--- OUTSIDE RECORDS SUMMARY | 2020-03-16 09:25 | XMS_ITS | Encounter Summary ---
Author Organization [facility] Address [address] [facility] [address] [place] [address] Phone Care Team Providers Care Certified Legal Secretary Specialist Name Role Phone Rachna Bernard BRICKLAYER APPRENTICE Primary Care Provider [phone] Encounter Details Date Type Department Care Team (Late st Contact Info) Description 03/16/2020 9:25 AM EDT Hospital Encounter [facility] [address] [place] [address] Varsha Britton, ARCHITECTURE ANALYST 30 [place] [address] [email or web address] Social History Tobacco Use Types Packs/Day Years [...] EST Office Visit [facility] [place] [facility] 40 [place] [address] Miguel Juan PA-C 40 [place] [address] [email or web address] documented as of this encounter Procedures Procedure [...] AM EDT No significant bony abnormality. POS [id number] Narrative 03/16/2020 9:51 AM EDT Frontal and lateral views disclose no fracture, subluxation, or other significant abnormality involving the visualized regional skeletal structures. Procedure Note Jarad Goodrich MD - 03/16/2020 Frontal and lateral views disclose no fracture, subluxation, or othersignificant abnormality involving the visualized regional skeletalstructures. IMPRESSION: No significant bony abnormality. POS [id number] Vrasha Britton ARCHITECTURE ANALYST IMG XR UPPER EXTREMITY Final Result documented [...] documented as of this encounter Care Teams Certified Legal Secretary Specialist Relationship Specialty Start Date End Date Rachna Bernard NP [email or web address] PCP - General Family Medicine 08/18/17 11/17/23 documented as of this encounter Additional Source Comments The information contained in this document represents components of the legal health record. It is not the complete legal health record.[facility]
[2025-06-05 14:55] VITALS: BP 115/79; PULSE 76; RESP 16; O2SAT 98; BMI 29.6
--- NOTE | 2025-06-05 14:55 | A.OFFVIS_ITS ---
Vital Signs 06/05/25 14:55 06/05/25 15:25 Height 5 ft 3 in Weight 167 lb BMI 29.6 BP 115/79 121/71 Blood Pressure Location Lt brachial Lt brachial Position Sitting Sitting Respiration 16 16 Pulse 76 77 Pulse Source Pulse Oximeter Pulse Oximeter Pulse Oximetry (%) 98 97 Oxygen Delivery Method Room Air Room Air Intake Visit Reasons: Bilateral Diagnostic SIJ Injections Allergies gluten (Gluten) Allergy (Severe, Verified 05/30/25 07:34) Gastrointestinal Upset Penicillins Allergy (Intermediate, Verified 05/30/25 07:34) Rash Sulfa (Sulfonamide Antibiotics) Allergy (Intermediate, Verified 05/30/25 07:34) Rash Codeine Phosphate Allergy (Intermediate, Uncoded 03/15/25 07:01) [facility]a [facility] History (Updated 06/05/25 @ 16:43 by Shun Morrissey MD) Right ankle swelling Insertional tendinopathy of right Achilles tendon Chronic instability of ankle Sprain of calcaneofibular ligament of right ankle, initial encounter Sprain of anterior talofibular ligament of right ankle Right ankle sprain Transient neurological symptoms Hypersomnia Snoring Chest pain Crescendo angina Angina pectoris Hypothyroidism Low back pain COVID-19 vaccine series completed Anxiety GERD (gastroesophageal reflux disease) Celiac disease Restless leg syndrome Surgical History Hx of bilateral cataract extraction History of esophagogastroduodenoscopy (EGD) Hx of colonoscopy Hx of foot surgery Hx of tonsillectomy Hx of appendectomy History of back surgery Family History Daughter Celiac disease Social History Household Members: Children Household Members Other:: son age 17 Housing: House Are you a primary vehicle care specialist to a significant other at home: No Do you presently have visiting nurse or other home services: No Alcohol intake: current Alcohol intake frequency: holidays/special occasions only Patient Tobacco Use Status: Former Tobacco user Tobacco use type: Cigarette Advance Directives Date on File: 03/14/21 service: No Current occupational status: employed 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 All questions about benefits and risks for the procedure were answered. Patient came to the operating room and was positioned prone on the operating table with the pillow under the abdomen. The lower back and buttocks of the patient were prepped with ChloraPrep prepped and draped with sterile utility towels.? Sterilely draped C-arm was brought over the operating field and sq picture of patient's pelvis was demonstrated on the screen.? For the right joint tilting C-arm contralateral to the site of the joint the most posterior portion of the joints was superimposed with anterior silhouette of the joint.? Skin was injected in the projection of the joint slightly medial to the location of the joint with 25 gauge 1/2 inch needle using local lidocaine 2% . After that 22 gauge 3 and 1/2 inch needle was driven to the right joint in tunnel vision fashion.? When needle entered the joint capsule injection of the contrast was performed demonstrating intra-articular and minimally periarticular spread of the contrast.? After that 5 cc. of ropivacaine 0.5% mg was injected in the joint. After that procedure was repeated on the left side in mirroring fashion. Upon completion of the injections the needle was removed and Band-Aid was applied.? Upon completion of the injection patient was taken outside of the operating room to the recovery room where recovered uneventfully. Patient was instructed to use pain diary to document the level of the pain in the next 6-12 hours. Orders: Orders FL guidance in treatment room Today M53.3 - Sacrococcygeal disorders, not elsewhere classified Coding Level of Care Code Procedure Only Diagnoses Sacroiliitis M46.1 Sacroiliac joint dysfunction of both sides M53.3
[2025-06-05 15:25] VITALS: BP 121/71; PULSE 77; RESP 16; O2SAT 97
--- OUTSIDE RECORDS SUMMARY | 2025-06-05 17:43 | XMS_ITS | Encounter Summary ---
Author Organization [facility] Address [address] [place] [address] [place] [address] Phone Care Team Providers Care Central Supply Technician Name Role Phone Miguel Juan PA-C Primary Care Provider [phone] Reason for Visit * Reason Comments Medication Refill Encounter Details Date Type Department Care Team (Late st Contact Info) Description 06/04/2025 Refill [facility] Internal Medicine [address] [place], [place] [phone] Miguel Juan PA-C [address] [place] [address] [email or web address] Medication Refill Social History Tobacco Use [...] Progress Notes * Katy Cruz CMA - 06/05/2025 9:24 AM EDT Rx Care Gap Status - Instructions for Clinical Staff (prescriber discretion applies): > Mismatch review guide > At least one request does not meet full criteria. Specifics below. > Labs due: Please remind patient. > Orders needed: Click OPA and Accept to open SmartSet. CBC - Needs order * LFTs - Needs order * BMP - Needs order * Visit Info Last visit: 05/03/2025 Miguel Juan PA-C - Internal Medicine [facility] > Requested f/u: Return in about 3 months (around 08/02/2025). Upcoming visit: 08/09/2025 Miguel Juan PA-C - Internal Medicine [facility] ACTIONS TAKEN BY Katy Cruz CMA - no change NSAID Rx Protocol - Daily treatment for inflammatory arthritis/rheumatology use - diclofenac sodium Criteria not met; renew for up to 3 months. Visit in the past 14 months: Yes Clinical criteria: - BMP within past year: No - LFTs within past year: No - CBC within past year: No Lab Results Component Value Date Potassium level - External 3.4 03/15/2025 Creatinine, serum - External 0.8 03/15/2025 No Health Maintenance Labs Overdue documented in this encounter Plan of Treatment Upcoming Encounters Date Type Department Care Team (Late st Contact Info) Description 08/09/2025 8:00 AM EST Office Visit [facility] Internal Medicine [address] [place] [address] Miguel Juan PA-C [address] [place] [address] [email or web address] documented as of this encounter Visit Diagnoses Not on filedocumented in this encounter Additional Health Concerns Assessment Noted Time PHQ-2 Depression Total Score: 0 01/23/20 25 12:24 PM EDT documented as of this encounter Care Teams Central Supply Technician Relationship Specialty Start Date End Date Miguel Juan PA-C [address] [place] [address] [email or web address] PCP - General Physician Center Medical And Lab Director 10/16/24 documented as of this encounter Additional Source Comments The information contained in this document represents components of the legal health record. It is not the complete legal health record.[facility]
--- OUTSIDE RECORDS SUMMARY | 2025-06-05 17:43 | XMS_ITS | Encounter Summary ---
Author Organization [facility] Address [address] [place] [address] [place] [phone] Phone Care Team Providers Care Armature [employer] Name Role Phone Miguel Juan PA-C Primary Care Provider [phone] Encounter Details Date Type Department Care Team (Late st Contact Info) Description 06/01/2025 Orders Only [facility] Internal Medicine [address] [place] [address] Provider, MD Kristian [place] [address] Social History Tobacco Use Types Packs/Day Years [...] AM EST Office Visit [facility] Internal Medicine [address] [place] [address] Miguel Juan PA-C [address] [place] [address] [email or web address] documented as of this encounter Procedures Procedure [...] documented as of this encounter Care Teams Armature [employer] Relationship Specialty Start Date End Date Miguel Juan PA-C [address] [place] [address] PCP - General Physician Professional Security Officer 10/16/24 documented as of this encounter Additional Source Comments The information contained in this document represents components of the legal health record. It is not the complete legal health record.[facility]
--- OUTSIDE RECORDS SUMMARY | 2025-06-05 17:44 | XMS_ITS | Clinical Summary ---
Author Organization [facility] Address [address] [place] [address] Phone Care Team Providers Care Carbide Tool Die Maker Name Role Phone Miguel Juan PA-C Primary [...] 3 01/26/20 25 Active lidocaine (LIDODERM) 5 %Indications:Director Of Distribution chrissy bilateral low back pain with left-sided sciatica Place 1 patch onto the skin 2 (two) times a day as needed (M54.42, G89.29). Remove & Discard patch within 12 hours or as directed by 30 patch 01/31/20 25 Active levothyroxine (SYNTHROID, LEVOTHROID) 75 MCG tabletIndications :Acquired hypothyroidism TAKE 1 TABLET (75 MCG TOTAL) BY MOUTH EVERY MORNING. 90 tablet 3 05/28/20 25 Active diclofenac sodium (VOLTAREN) 75 MG EC tablet Take 1 tablet (75 mg total) by mouth 2 (two) times a day. 28 tablet 06/05/20 25 Active levothyroxine (SYNTHROID, LEVOTHROID) 75 MCG tabletIndications :Acquired hypothyroidism TAKE 1 TABLET (75 MCG TOTAL) BY MOUTH EVERY MORNING. 30 tablet 11 08/21/20 24 025 Discontinued diclofenac sodium (VOLTAREN) 75 MG EC tablet Take 1 tablet (75 mg total) by mouth 2 (two) times a day. 14 tablet 05/03/20 25 025 Discontinued(R eorder) diclofenac sodium (VOLTAREN) 75 MG EC tablet Take 1 tablet (75 mg total) by mouth 2 (two) times a day. 28 tablet 05/15/20 25 025 Discontinued(R eorder) Active Problems Problem Noted Date Diagnosed Date Acute right ankle pain 05/03/2025 Assessment & Plan (05/03/2025 9:50 AM EDT): Patient mentions that back in January she developed right ankle pain after walking down the stairs. She denies any trauma or history of popping sensation. She was seen at the [facility] x 2 and had undergone right [...] any relief. She was seen by at [facility] who switched her out of the boot [...] -Patient has an appointment coming up with [facility] on 05/11 patient was advised to [...] she does have an appointment scheduled with [facility] on 05/11 for further evaluation. Of [...] without improvement on prednisone, will refer to [facility] per patient request. Also, given the [...] EDT): Patient underwent laboratory data done at [facility]. Her labs were discussed during her office visit. She is up-to-date on her colonoscopy, mammogram and Pap smear will be completed this fall at [facility]. Annual physical 1 year Migraine without aura [...] up with neurology and referral placed to [facility] per patient request Urine frequency 12/14/2023 Assessment [...] back pain. She has been seen by [facility] with noted cortisone injections. She has been managing her pain with PT, ibuprofen, stretching, heat, and lidocaine patches. During her last visit in January, she asked to have her PMLA extended. Patient is a will be undergoing cortisone injections through [facility] in the upcoming weeks Assessment & Plan (03/13/2025 10:29 PM EDT): Chronic, unchanged, though symptoms are significantly impacting function today. Will make f/u with either [facility] or [facility] Assessment & Plan (01/25/2025 8:09 AM EDT): Patient follows closely with [facility] and has undergone cortisone [...] (04/14/2024 9:44 AM EDT): Continue follow-up with [facility] as she notes that she prefers their office over [facility]. Does note that previous injections were helpful for recent travel to [place]. Hypothyroidism 12/21/2017 Assessment & Plan (05/03/2025 7:53 [...] joint syndrome 12/21/2017 12/14/2023 Cervical radicular pain 12/21/2017 04/10/2023 Cervicalgia 12/21/2017 05/03/2025 Chronic nonintractable headache 12/21/2017 12/14/2023 Gastroesophageal reflux dise ase without esophagitis 12/21/2017 12/14/2023 Post menopausal syndrome 12/21/2017 Restless leg syndrome 12/21/20172017 Restless legs syndrome 12/21/201712/13 Thyroid nodule 12/21/2017 12/14/2023 Vertigo 12/21/2017 07/16/2021 Osteopenia 12/21/2017 12/14/2023 Encounters Date Type Department Care Team Description 06/04/2025 Refill [facility] Internal Medicine [address] [facility] [address] Miguel Juan PA-C Medication Refill 06/01/2025 Orders Only [facility] Internal Medicine [address] [facility] [place] [address] Kristian Young MD 05/28/2025 Refill [facility] Internal Medicine [address] [place] [address] Ami Hoffman, LINDA Medication Refill 05/14/2025 Orders Only [facility] Internal Medicine [address] [place] [address] ProviderKristian MD 05/03/2025 8:00 AM EDT Office Visit [facility] Internal Medicine [address] [place] [address] Miguel Juan PA-C Mixed hyperlipidemia (Primary Dx); Acquired hypothyroidism; Chronic bilateral low back pain with left-sided sciatica; Olecranon bursitis of right elbow; Acute right ankle pain 04/03/2025 Orders Only [facility] Internal Medicine [address] [facility] [place] [address] ProviderKristian MD 04/02/2025 Orders Only [facility] [address] [facility] [place] [address] Kristian Young MD 03/30/2025 1:00 PM EDT Office Visit [facility] Internal [facility] [address] [facility] [place] [address] Miguel Juan PA-C Carey, Samantha, PA-C Olecranon bursitis of right elbow (Primary Dx) 03/28/2025 Documentation [facility] Internal Medicine [address] [facility] [place] [address] Miguel Juan PA-C 03/28/2025 Orders Only [facility] Internal [facility] [address] [facility] [place] [address] Kristian Young MD 03/15/2025 Orders Only [facility] Internal [facility] 40 [place] [address] Kristian Young MD 03/14/2025 Orders Only [facility] Internal [facility] 40 [place] [address] Boris Roberts MD Poison mis dermatitis (Primary Dx) 03/13/2025 1:30 PM EDT Office Visit [facility] [address] [place] [address] Lizett Riddle, REAL Achilles tendinitis of right lower extremity (Primary Dx); Elevated C-reactive protein (CRP); Spasm of both trapezius muscles; Poison mis dermatitis; Chronic bilateral low back pain with left-sided sciatica 03/13/2025 Orders Only [facility] Internal [facility] [address] [facility] [place] [address] Kristian Young MD 03/12/2025 Orders Only [facility] Internal [facility] [address] [place] [address] Kristian Young MD 03/12/2025 Telephone [facility] [address] [facility] [place] [address] Ewa Longo, ALEJANDRA Appointment from Last 3 [...] Description 08/09/2025 8:00 AM EST Office Visit [facility] Internal Medicine 40 [place] [address] Miguel Juan PA-C 40 [place] [address] [email or web address] Health Maintenance Due Date Last Done Comments [...] of3 resultswithin the time period is included. [facility] Provider LAB BLOOD ORDERABLES Loren l Result * Outside MR Extremity Lower report Only (05/10/2025 8:24 AM EDT) [facility] Provider IMG MR EXTREMITY Final Re sult * Lyme Screen with Reflex to Immunoblot, Blood (03/30/2025 3:50 PM EDT) [facility] Provider LAB BLOOD ORDERABLES Loren l Result * Rheumatoid factor (03/30/2025 3:50 PM EDT) [facility] Provider LAB BLOOD ORDERABLES Loren l Result * Uric acid (03/30/2025 3:50 PM EDT) [facility] Provider LAB BLOOD ORDERABLES Loren l Result * Outside XR Extremity Upper Report Only (03/27/2025 7:51 AM EDT) Result [facility] IMG XR UPPER EXTREMITY Fi nal Result * Outside XR Imaging Report Only (03/27/2025 7:46 AM EDT) Result [facility] IMG XR CHEST Final Res ult * Outside XR Imaging Report Only (03/15/2025 8:10 AM EDT) Result [facility] IMG XR CHEST Final Res ult * Outside Potassium Level (03/15/2025) Potassium level - External 3.4 3.4 - 5.0 mmol/L Result [facility] LAB BLOOD ORDERABLES Loren l Result * Outside Serum Creatinine Level (03/15/2025) Creatinine, serum - External 0.8 0.8 - 1.3 mg/dL Result [facility] LAB BLOOD ORDERABLES Loren l Result * Outside ALT Level (03/15/2025) ALT - External 14 5 - 30 U/L Result [facility] LAB BLOOD ORDERABLES Loren l Result * Outside XR??Chest Report Only (03/12/2025 4:18 PM EDT) Result [facility] IMG XR CHEST Final Res ult * Outside XR Extremity Lower Report Only (03/12/2025 4:02 PM EDT) Result [facility] IMG XR LOWER EXTREMITY Fi nal Result * Outside Imaging Report Only (03/12/2025 10:12 AM EDT) Result [facility] IMG XR CHEST Final Res ult * Outside TSH Level (01/13/2025) TSH - External 0.61 0.5 - 5 uIU/L Result [facility] Historical Provider LAB BLOOD ORDERABLES Loren l Result * Outside Glucose,Fasting (01/13/2025) Glucose, fasting - External 96 65 - 99 mg/dL Result [facility] Provider LAB BLOOD ORDERABLES Loren l Result * Outside HDL (01/13/2025) HDL - External 44 40 - 80 mg/dL Result [facility] Provider LAB BLOOD ORDERABLES Loren l Result * HM MAMMOGRAPHY FOR RESULT ENTRY ONLY (08/26/2024 10:07 AM EST) Result [facility] Provider HEALTH MAINTENANCE Edited Result - Final * DXA Screening (08/19/2023 10:27 AM EST) Anatomical Region Laterality Modality Bone Density Bone Density Rachna Bernard NP IMG BD BONE DENSITY DEXA Final Result * Hepatitis C antibody, qualitative (01/09/2022 3:00 PM EDT) Blood Result [facility] Rachna Bernard NP LAB BLOOD ORDERABLES Final Resu lt [facility] [address] [place], [place] [id number] * COLONOSCOPY FOR RESULT ENTRY ONLY (06/20/2021) Result [facility] Provider HEALTH MAINTENANCE Edited Result - Final from Last 3 Months or Most Recently Relevant to Health Maintenance Insurance [email or web address] [place] [employer] [place] [employer] [place] [id number] [employer] [place] [employer] [place] [employer] Care Teams Carbide Tool Die Maker Relationship Specialty Start Date End Date Miguel Juan PA-C [address] [place] [address] [email or web address] PCP - General Physician Building Custodian 10/16/24 Additional Source Comments The information contained in this document represents components of the legal health record. It is not the complete legal health record.[facility]
--- OUTSIDE RECORDS SUMMARY | 2025-06-05 17:44 | XMS_ITS | Encounter Summary ---
Author Organization [facility] Address [address] [place] [address] [place] [address] Phone Care Team Providers Care Supervisor Steno Pool Name Role Phone Miguel Juan PA-C Primary Care Provider [phone] Reason for Referral * MRI/CAT Scan - Closed Specialty Diagnoses / Procedures Referred By Elvira raya Referred To Contact Radiology Procedures Outside MR Extremity Lower report Only [facility] Internal Medicine [address] [place] [address] Phone: tel: fax: Referral ID Status Reason Start Date Expiration Date Visits Re quested Visits Authorized [id number] Closed 05/14/2025 1 1 Encounter Details Date Type Department Care Team (Late st Contact Info) Description 05/14/2025 Orders Only [facility] Internal Medicine [address] [place] [address] Kristian Young MD [address] [place] [address] Social History Tobacco Use Types Packs/Day [...] Description 08/09/2025 8:00 AM EST Office Visit [facility] Internal Medicine [address] [place] [address] Miguel Juan PA-C [address] [place] [address] documented as of this encounter Procedures Procedure [...] documented as of this encounter Care Teams Supervisor Steno Pool Relationship Specialty Start Date End Date Miguel Juan PA-C [address] [place] [address] [email or web address] PCP - General Physician Manager Process 10/16/24 documented as of this encounter Additional Source Comments The information contained in this document represents components of the legal health record. It is not the complete legal health record.[facility]
--- OUTSIDE RECORDS SUMMARY | 2025-06-05 17:44 | XMS_ITS | Encounter Summary ---
Author Organization [facility] Address [address] [place] [address] [place] [address] Phone Care Team Providers Care Makeup Sales Consultant Name Role Phone Vimal Merino MD Unavailable Rosalio Galeana MD Unavailable Rachna Bernard BUCCARO Unavailable [phone] Rachna Bernard BUCCARO Primary Care Provider Ami Hoffman SALES CORRESPONDENT Primary Care Provider Miguel Juan PA-C Primary Care Provider [phone] Encounter Details Date Type Department Care Team (Latest Contact Info) Description 02/17/2018 Transcribe Orders [facility] Laboratory [address] [place], [place] [id number] Heath Moy MD [address] [place] [address], [address] [place], [place] [id number] [email or web address] MS (multiple sclerosis) (Primary Dx) [...] Description 08/09/2025 8:00 AM EST Office Visit [facility] Internal Medicine 40 [place] [address] Miguel Juan PA-C 40 [place] [address] [email or web address] documented as of this encounter Results * Miscellaneous lab test (02/17/2018 3:32 PM EDT) TESTS REQUESTED MYELIN OLIGODENDROCYTE GLYCOPROTEIN [facility] SPECIMEN/TUBE TYPE RED TOP [facility] REQUEST RECEIVED Request received. A separate order for the requested test will be generated by the laboratory. [facility] Blood 02/17/2018 3:32 PM EDT 02/17/2018 3:41 PM EDT us Heath Moy MD LAB BLOOD ORDERABLES Final R esult Performing Organization Address City/State/[facility] Co de Phone Number [facility] [address] [place] [address] documented in this encounter Visit Diagnoses Diagnosis [...] documented as of this encounter Care Teams Makeup Sales Consultant Relationship Specialty Start Date End Date Rachna Bernard NP [address] [facility] [address] [place] [address] PCP - General Family Medicine 08/18/17 11/17/23 Ami Hoffman FNP [address] [facility] [address] [place] [address] PCP - General Nurse Practitioner 11/18/23 10/15/24 Miguel Juan PA-C 40 [place] [address] PCP - General Physician Holistic Specialist 10/16/24 Vimal Merino MD 40 [place] [address] Historical [facility] Provider 06/08/17 12/07/19 Rosalio Galeana MD [address] [facility], [address] [place] [address] Historical [facility] Provider 06/08/17 12/07/19 Rachna Bernard NP 26 [facility] 6 [place] [address] Historical [facility] Provider 06/08/17 12/07/19 documented as of this encounter Additional Source Comments The information contained in this document represents components of the legal health record. It is not the complete legal health record.[facility]
--- OUTSIDE RECORDS SUMMARY | 2025-06-05 17:44 | XMS_ITS | Encounter Summary ---
Author Organization [facility] Address [address] [place] [address] [place] [address] Phone Care Team Providers Care Importer Or Exporter Name Role Phone Rachna Bernard WHEEL ALIGNMENT MECHANIC Primary Care Provider Ami Hoffman Primary Care Provider Miguel Juan PA-C Primary Care Provider [phone] Encounter Details Date Type Department Care Team (Late st Contact Info) Description 06/21/2023 Nurse Triage [facility] Internal Medicine [address] [facility] [place] [address] Rachna Bernard WHEEL ALIGNMENT MECHANIC [address] [facility] [address] [place] [address] [email or web address] Social History [...] high school, GED, job training, learning the Bengali language, technical skills, or developing parenting skills)? [...] SOB Protocols used: CORONAVIRUS (COVID-19) DIAGNOSED OR [id number] Nurse Triage Encounter Note Reason for Triage Yahaira Jaeger contacted office for None Call Disposition Home Care Patient/caregiver understands and will follow disposition: Unsure Patient/caregiver understands and will follow care advice: Disposition Comments: Protocols used: Coronavirus (Covid-19) Diagnosed Or [id number] Initial Symptom Screening and Assessment IA None [...] either acetaminophen or ibuprofen. * They are iavd-fns-trxzgzt (OTC) drugs that help treat both fever [...] 8:00 AM EST Office Visit [facility] [place] Internal Medicine [address] [place] [address] Miguel Juan PA-C [address] [place] [address] [email or web address] documented as of this encounter Visit Diagnoses Not on filedocumented in this encounter Additional Health Concerns Infection Onset Date Last Indicated Resolved Time CoV-Risk 07/01/2024 07/01/2024 07/12/2024 1:21 AM EST Assessment Noted Time PHQ-2 Depression Total Score: 0 08/18/20 22 3:41 PM EST documented as of this encounter Care Teams Importer Or Exporter Relationship Specialty Start Date End Date Rachna Bernard WHEEL ALIGNMENT MECHANIC PCP - General Family Medicine 08/18/17 11/17/23 Ami Hoffman FNP [address] [address] PCP - General Nurse Practitioner 11/18/23 10/15/24 Miguel Juan PA-C [address] [place] [address] PCP - General Physician Governor Assembler 10/16/24 documented as of this encounter Additional Source Comments The information contained in this document represents components of the legal health record. It is not the complete legal health record.[facility]
== END 2025-06-05 15:24 | disposition home or self-care (01) ==
LOC: HO.PMCPRC 14:51
PROVIDERS: PCP Physician Assistant Surgical; Visit Provider Anesthesiology
DX: M46.1 Sacroiliitis, not elsewhere classified (principal); M53.3 Sacrococcygeal disorders, not elsewhere classified
CPT/HCPCS: 27096

== ENCOUNTER 2025-06-07 15:24 | Outpatient (AMB) | payer OTHER, SELFPAY ==
--- OUTSIDE RECORDS SUMMARY | 2020-03-16 09:25 | XMS_ITS | Encounter Summary ---
Author Organization [facility] Address [address] [employer] [facility] [address] [place] [address] Phone Care Team Providers Care Toe Stapler Name Role Phone Rachna Bernard COMMUNITY FUNDRAISER Primary Care Provider [phone] Encounter Details Date Type Department Care Team (Late st Contact Info) Description 03/16/2020 9:25 AM EDT Hospital Encounter [facility] [address] [place] [address] Varsha Britton, STACK YIELD ENGINEER 30 [place] [address] [email or web address] Social History Tobacco Use Types Packs/Day Years [...] EST Office Visit [facility] [place] [facility] 40 [place] [address] Miguel Juan PA-C 40 [place] [address] [email or web address] documented as of this encounter Procedures Procedure [...] AM EDT No significant bony abnormality. POS [id number] Narrative 03/16/2020 9:51 AM EDT Frontal and lateral views disclose no fracture, subluxation, or other significant abnormality involving the visualized regional skeletal structures. Procedure Note Jarad Goodrich MD - 03/16/2020 Frontal and lateral views disclose no fracture, subluxation, or othersignificant abnormality involving the visualized regional skeletalstructures. IMPRESSION: No significant bony abnormality. POS [id number] Varsha Britton STACK YIELD ENGINEER IMG XR UPPER EXTREMITY Final Result documented [...] documented as of this encounter Care Teams Toe Stapler Relationship Specialty Start Date End Date Rachna Bernard NP [email or web address] PCP - General Family Medicine 08/18/17 11/17/23 documented as of this encounter Additional Source Comments The information contained in this document represents components of the legal health record. It is not the complete legal health record.[facility]
--- NOTE | 2025-06-07 15:28 | A.OFFVIS_ITS ---
Vital Signs 06/07/25 15:32 Height 5 ft 3 in Weight 168 lb 6 oz BMI 29.8 BP 122/70 Blood Pressure Location Lt brachial Position Sitting Pulse 70 Pulse Source Pulse Oximeter Pulse Oximetry (%) 98 Oxygen Delivery Method Room Air Intake Visit Reasons: S/P Bilateral Diagnostic SIJ Injections Intake Note: Pain today 0/10 Talent Specialist Required: No Accompanied by: Self / Same As Patient Allergies gluten (Gluten) Allergy (Severe, Verified 06/07/25 15:33) Gastrointestinal Upset Penicillins Allergy (Intermediate, Verified 06/07/25 15:33) Rash Sulfa (Sulfonamide Antibiotics) Allergy (Intermediate, Verified 06/07/25 15:33) Rash Codeine Phosphate Allergy (Intermediate, Uncoded 03/15/25 07:01) Nausea HPI Comments Details: The patient is a 70-year-old female presenting with a follow-up for sacroiliac joint pain management. She recently underwent bilateral diagnostic bilateral sacroiliac joint injections on 06/05/25, performed by Dr. Morrissey, which resulted in complete and ongoing pain relief. The injections were successful in targeting her symptomatic regions, and the patient reports no current pain. Patient is interested to proceed with therapeutic bilateral sacroiliac joint injections for a longer-term pain management when her pain returns to baseline levels. Denies any recent cough, cold, infection, fever or any significant changes in medical history since last office visit. - Analgesia: Complete pain relief achieved with diagnostic injections - Activities of Daily Living: Improved ability to walk, sit, drive, and change positions - Aberrant Drug Related Behaviors: None reported Past Procedures: 06/05/2025: Bilateral diagnostic sacroiliac joint injections-100% pain relief for 3 days PRIOR: The patient is a 70-year-old female presenting with chronic low back pain with left-sided sciatica. The pain has been persistent and is described as sharp, radiating from the lower back to the left buttock and down the left leg, with occasional involvement of the right side. The patient reports that the pain can be severe enough to catch her breath and stop her activities. The patient has a history of facet joint disease, osteopenia, vertebrogenic disease, and multilevel neural foraminal stenosis, as identified in an MRI from 2021. She has a history of an L3-[address] Gonzalez approximately 17- 18 years ago, which was initially successful in alleviating symptoms. Physical therapy was attempted until the end of last year without significant improvement in symptoms. Patient was introduced to neuromodulation with SCS and Sprint PNS trials and implants last year and also discussed Intracept BVN ablation procedures. Patient has declined implantable devices but will review Sprint PNS trial again. The patient has declined certain interventions such as intracept ablation and spinal cord stimulation due to discomfort with having devices inserted into her body. She has previously received therapeutic facet injections at L4, L5, and S1, which provided 60-70% pain relief for about a month. The patient uses a heating pad, lidocaine patches, and cxuw-qpy-bzgeqsu medications such as Motrin and Tylenol for pain management. - Onset: Persistent, with exacerbations - Quality: Sharp, radiating - Primary Location: Lower back - Radiation: Left buttock and left hip and leg, occasionally right buttock and right hip - Exacerbating Factors: Forward bending - Relieving Factors: Heating pad, lidocaine patches, Motrin, Tylenol - Interference: Severe pain can stop activities and catch breath - Affect: Pain impacts daily activities, causing interruptions - Analgesia: Uses heating pad, lidocaine patches, Motrin, Tylenol; previous facet injections provided temporary relief - Adverse Effects: None reported from current medications - Activities of Daily Living: Pain interrupts activities, especially when severe - Aberrant Drug Related Behaviors: None reported PRIOR 01/24/24 Dr. Serna: 68-year-old female who presents today to the office for a status post facet block. The patient reports 60?70% relief following the procedure for a month. She reviewed the details of the basi-vertebral nerve ablation, and she does not want to proceed with that. She mows her lawn and does her ADLs. She is interested in other treatment options. She reports axial low back pain that is constant. Past procedures 12/16/23: Lumbar Facet Injections, Bilateral, L4/L5, L5/S1: 60-70% relief for a month. FORMERLY [facility], [facility] Medical History (Updated 06/05/25 @ 16:43 by Shun Morrissey MD) Right ankle swelling Insertional tendinopathy of right Achilles tendon Chronic instability of ankle Sprain of calcaneofibular ligament of right ankle, initial encounter Sprain of anterior talofibular ligament of right ankle Right ankle sprain Transient neurological symptoms Hypersomnia Snoring Chest pain Crescendo angina Angina pectoris Hypothyroidism Low back pain COVID-19 vaccine series completed Anxiety GERD (gastroesophageal reflux disease) Celiac disease Restless leg syndrome Surgical History Hx of bilateral cataract extraction History of esophagogastroduodenoscopy (EGD) Hx of colonoscopy Hx of foot surgery Hx of tonsillectomy Hx of appendectomy History of back surgery Family History Daughter Celiac disease Social History Household Members: Children Household Members Other:: son age 17 Housing: House Are you a primary customer care representative to a significant other at home: No Do you presently have visiting nurse or other home services: No Alcohol intake: current Alcohol intake frequency: holidays/special occasions only Patient Tobacco Use Status: Former Tobacco user Tobacco use type: Cigarette Advance Directives Date on File: 03/14/21 service: No Current occupational status: employed Current occupation: [employer] [place]/ 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 Review of Systems Const All systems reviewed & are unremarkable except as noted in HPI and below Physical Exam Vital Signs: Last Vital Signs Pulse 70 06/07/25 15:32 BP 122/70 06/07/25 15:32 Pulse Ox 98 06/07/25 15:32 Oxygen Delivery Method Room Air 06/07/25 15:32 BMI result Body Mass Index 29.8 General: Appears afebrile. Alert and oriented. Mood and affect appropriate. Follows and participates in conversation appropriately. Respiratory effort is unlabored. Able to transition from sit to stand unassisted. Ambulates with bilaterally normal heel strike and toe off. Able to stand and walk on toes (L5-S1) and heels (L4-L5). General: Yes no CVA tenderness Back/Spine/Pelvis Back: no CVA tenderness Cervical Spine: cervical ROM normal, cervical muscular tenderness and No Cervical spine tenderness Thoracic/Lumbar Spine: thoracic and lumbar spine normal to inspection, Thoracic/lumbar spine scar(s), Lasegue's sign negative, straight leg raise negative bilaterally, pain with thoraco-lumbar ROM, paraspinal muscle tenderness, thoraco-lumbar ROM limited, No thoracic spinal tenderness and lumbar spinal tenderness (L4-S1) Pelvis: no buttock tenderness Sacroiliac joints: bilaterally (+Vimal's bilaterally) tender to palpation (minimal post injections) Results Reviewed Results Reviewed: 11/01/23: MR CERVICAL SPINE WITHOUT CONTRAST. MR LUMBAR SPINE WITHOUT CONTRAST. FINDINGS: CERVICAL SPINE MRI: Cervical alignment is normal. There is moderate to severe disc volume loss at C5-C6 and C6-C7. Vertebral body heights are maintained. The craniocervical junction is unremarkable. There is no bone marrow edema. There are no acute fractures. The partially imaged intracranial compartment is unremarkable. The cervical arterial flow voids are maintained. There are no significant extraspinal soft tissue findings. C2-C3: Posterior disc contour is normal. No central canal stenosis and no foraminal stenosis. C3-C4: Disc contour is normal. Mild bilateral facet arthropathy. No central canal stenosis and no foraminal stenosis. C4-C5: Disc osteophyte without central canal stenosis. Uncovertebral joint spurring and facet arthropathy result in mild right-sided foraminal encroachment. C5-C6: A shallow right paracentral disc protrusion and ligamentum flavum thickening mildly narrow the central canal. Uncovertebral joint spurring and facet arthropathy result in moderate to severe right-sided foraminal stenosis. C6-C7: Disc osteophyte mildly narrows the central canal. Uncovertebral joint spurring and facet arthropathy result in severe right and moderate left foraminal stenosis. C7-T1: Disc contour is normal. No central canal stenosis and no foraminal stenosis. LUMBAR SPINE MRI: There are 5 nonrib-bearing lumbar-type vertebral bodies. There is grade 1 retrolisthesis of L1 on L2. Lumbar alignment is otherwise normal. The vertebral body heights are maintained. There is an interbody cage at L3-L4 anteriorly. Intraosseous hemangiomas within the L4 and S1 vertebral bodies. There is no bone marrow edema. There are no acute fractures. Conus terminates at the L1-L2 level. Extrarenal pelvises bilaterally. Partially imaged fibroid uterus. L1-L2: Grade 1 retrolisthesis. Small annular disc bulge. No central canal stenosis and no foraminal stenosis. Findings unchanged. L2-L3: Disc contour is normal. No central canal stenosis and no foraminal stenosis. L3-L4: Interbody cage in place. Mild bilateral facet arthropathy. No central canal stenosis and no foraminal stenosis. L4-L5: There is a similar right lateral disc protrusion that along with advanced facet arthropathy results in similar moderate right-sided foraminal stenosis and mass effect on the extraforaminal right L4 nerve root. There is a background annular disc bulge and there is bilateral facet arthropathy and ligamentum flavum thickening. Similar narrowing of the subarticular zones with mild mass effect on the traversing L5 nerve roots bilaterally. L5-S1: Diffuse annular disc bulge and severe bilateral facet arthropathy. No central canal stenosis. Mild foraminal encroachment bilaterally. IMPRESSION: - Multilevel cervical spondylosis. Spondylitic changes result in moderate to severe right C5-C6 as well as severe right and moderate left C6-C7 foraminal stenosis. There is no severe central canal stenosis within the cervical spine. - Stable appearing multilevel lumbar spondylosis. Interbody cage again noted L3-L4. At L4-L5, a right lateral disc protrusion and advanced facet arthropathy result in similar moderate right-sided foraminal stenosis and mass effect on the extraforaminal right L4 nerve root. Spondylitic changes at L4-L5 result in similar bilateral subarticular zone stenosis with mass effect on the traversing L5 nerve roots bilaterally. Additional stable degenerative findings throughout the lumbar spine as described. - Partially imaged fibroid uterus. 08/19/23: BONE DENSITOMETRY FINDINGS: LEFT FEMUR, NECK: Current: BMD 0.824 g/cm2, Z-score -0.2, T-score -1.5, osteopenia. Baseline: BMD 0.850 g/cm2. LEFT FEMUR, TOTAL: Current: BMD 0.842 g/cm2, Z-score -0.2, T-score -1.3, osteopenia, 7.0% decrease from baseline (<5% change is not significant). Baseline: BMD 0.905 g/cm2. AP SPINE L1-L2 (excluding L3 and L4): The data of L1-L4 has been changed to exclude the L3 and L4 vertebral bodies, because degenerative sclerosis at these levels may cause overestimation of lumbar spine density. Current: BMD 0.885 g/cm2, Z-score -1.0, T-score -2.3, osteopenia, 4.1% decrease from baseline (<5% change is not significant). Baseline: BMD 0.923 g/cm2. IDENTIFIED RISK FACTORS: Menopause, height loss. HISTORY OF FRACTURE: None listed. MEDICATIONS: Vitamin D. IMPRESSION: 1. DIAGNOSIS: Osteopenia based on the lowest T-score value of -2.3 in the lumbar spine applying World Health Organization criteria. 2. 10-YEAR FRACTURE RISK PREDICTION, FRAX: Major osteoporotic fracture (clinical spine, forearm, hip or shoulder) 9.2%. Hip fracture 1.1%. 3. Treatment Recommendations: NOF guidelines recommend consideration for treatment in postmenopausal women and men age 50 and older presenting with the following: -A hip or vertebral (clinical or morphometric) fracture. -T-score less than or equal to -2.5 at the femoral neck or spine after appropriate evaluation to exclude secondary causes. -Low bone mass at the hip or spine and a 10-year fracture probability by FRAX of greater than or equal to 3% for hip fracture or greater than or equal to 20% for major osteoporotic fracture based on the [place] adapted WHO algorithm. Assessment & Plan Assessment & Plan (1) Post laminectomy syndrome: Code(s): M96.1 - Postlaminectomy syndrome, not elsewhere classified Category: Medical (2) Lumbar spondylosis: Code(s): M47.816 - Spondylosis without myelopathy or radiculopathy, lumbar region Category: Medical (3) Sacroiliac joint pain: Code(s): M53.3 - Sacrococcygeal disorders, not elsewhere classified Category: Medical (4) Sacroiliitis: Code(s): M46.1 - Sacroiliitis, not elsewhere classified Category: Medical Plan The plan includes scheduling bilateral therapeutic sacroiliac joint injections with local and fluoroscopy for extended pain relief. Expectations, risks and benefits were reviewed. The patient will be tentatively scheduled for these injections, pending insurance approval, and will be monitored for the return of pain to baseline before proceeding. Additionally, the patient is due for a follow-up bone density screening in August to monitor osteopenia. All questions and concerns have been answered and patient agreed with the treatment plan. Follow up after injections and sooner as needed. Patient was informed and verbally consented to the use of an ambient scribe for clinic note documentation during this visit. Coding Level of Care Code Est Pt Level 3 (31659) Complex EM visit Add On G2211 Diagnoses Post laminectomy syndrome M96.1 Lumbar spondylosis M47.816 Sacroiliac joint pain M53.3 Sacroiliitis M46.1
[2025-06-07 15:32] VITALS: BP 122/70; PULSE 70; O2SAT 98; BMI 29.8
--- OUTSIDE RECORDS SUMMARY | 2025-06-07 19:13 | XMS_ITS | Encounter Summary ---
Author Organization [facility] Address [address] [place] [address] [place] [address] Phone Care Team Providers Care Spanish Moss Picker Name Role Phone Miguel Juan PA-C Primary Care Provider [phone] Reason for Referral * MRI/CAT Scan - Closed Specialty Diagnoses / Procedures Referred By Elvira raya Referred To Contact Radiology Procedures Outside MR Extremity Lower report Only [facility] [address] [place] [address] Phone: tel: fax: Referral ID Status Reason Start Date Expiration Date Visits Re quested Visits Authorized [id number] Closed 05/14/2025 1 1 Encounter Details Date Type Department Care Team (Late st Contact Info) Description 05/14/2025 Orders Only [facility] [address] [place] [address] Kristian Young MD [address] [place] [id number] Social History Tobacco Use Types Packs/Day [...] Description 08/09/2025 8:00 AM EST Office Visit [facility] [address] [place] [address] Miguel Juan PA-C [address] [place] [address] [email or web address] documented as of this encounter Procedures Procedure [...] documented as of this encounter Care Teams Spanish Moss Picker Relationship Specialty Start Date End Date Miguel Juan PA-C [address] [place] [address] PCP - General Physician Special Deputy Sheriff 10/16/24 documented as of this encounter Additional Source Comments The information contained in this document represents components of the legal health record. It is not the complete legal health record.[facility]
--- OUTSIDE RECORDS SUMMARY | 2025-06-07 19:13 | XMS_ITS | Data Portability ---
Author Organization [facility], [facility] Address [address] [place] [address] Care Team Providers Care Business Agent Name Role Phone MARIAH NORTH Primary Care [...] distally. X-rays ordered, obtained and reviewed at [facility]: 5 views of the right ankle and [...] 2V ANKLE WB room 2 2024 025 [facility], [address] [facility] [address], [address], 5 14:31:43 Medication Orders meloxicam 15 mg tablet 2024 025 [facility], [address] [facility], [place], [address], 5 09:55:20 Patient TargetsNo targets recorded. Patient InstructionsNo instructions recorded. Reason for Referral None Reported. Results Created Date Observation Date Name Description Value Unit Range Abnormal Flag Note LastModifiedBy Organization Detail LastModifiedTime 03/21/20 25 03/21/2025 XR, ankle + foot http:/ [email or web address] ?Encry pted=s hAaTro YD8dLq bEUv6g %2BXZw aYqtaq 0bqfl% 2Fg9IQ a4ajBk vP9nXo QUaueC m3YtLR FvZlgJ JJ8mAn HZtai3 8x5540 AC0Klb n6NUaS iKiQtr MwF INTERFACE [facility] Office [address] [facility] [address], [place], [address], 03/21/2025 09:26:05 03/21/20 25 03/21/2025 XR, ankle + foot http:/ [email or web address] ?Encry pted=s hAaTro YD8dLq bEUv6g %2BXZw aYqtaq 0bqfl% 2Fg9IQ a4ajBk vP9nXo QUaueC m3YtLR FvZl JJ8mAn HZtai3 1m2757 AC0Klb n6NUaS iKiQtr MwF INTERFACE [facility] [address], [address], 03/21/2025 09:26:07 Result Notes Documentation Provider Name and Address Organization Details Recorded Time Xr, Ankle + Foot : [email or web address] Encrypted=dsOaKrwAE3gXmhR Uv6g%2ZOIiaMwtlb6yylb%2Fg 3WUa0yjHbzR2xRrTPotfOd1Vv LBAaYypUFL6fBjGOknp69d714 9BE5Cydw2DOtSvXqJdnImR Not Available [facility] 03/21/2025 09:26: 06 Xr, Ankle + Foot : [email or web address] Encrypted=jiIlVncZG5eOfkA Uv6g%1ZSRbxUswax9tchd%2Fg 5RAn5vcVaaU7rIeRTpgsSl3Ia YABxMhpMIE1cRyIIsvl10r389 9DR5Cbtl0MXdLrRtDleWfH Not Available [facility] 03/21/2025 09:26: 07 Problems Name Problem SNOMED Code Status Onset Date Resolution Date Notes Provider Name and Address Organization Details Recorded Time No complaints 238575144 Active Status : 'I'; Not Available [facility] 4 09:15:44 Pain in right foot 4555147908807 07 Active 2024 JESUS watters [place] - [facility] 5 09:04:59 Problem Notes None recorded. Medical Equipment None Reported. Allergies Allergen ID Allergen Name Allergen Category Reaction Reaction Severity Criticality Documentation Date Start Date Code Code System Note Provider Name and Address Organization Details Recorded Time 29308 Substance with sulfonami de structure and antibacte rial mechanism of action (substanc e) medicatio n Not available Not available Not available 10/25/20232009 00801 8003 SNOMED Aller gyRea ction : 'Skin React ion'; Not Available [facility] 4 13:40:21 74798 wheat gluten extract food Not available Not available Not available 10/25/20232009 48620 81 RxNorm Not Available [facility] 4 13:40:22 01591 codeine medicatio n Not available Not available Not available 10/25/20232022 2670 RxNorm Not Available [facility] 4 13:40:22 60250 Product containin g penicilli n (product) medicatio n Not available Not available Not available 10/25/20232022 57816 8001 SNOMED Not Available [facility] 4 13:40:22 Medications Name Sig [...] Updated DateTime 03/21/2025 160.02 cm 29.2 kg/m2 80334.74 g KAYLIA L'HEUREUX [facility] 03/21/2025 09:00:15 Social History Question Answer Notes LastModified by [employer] ion Details LastModified Time Tobacco Smoking Status Never Smoker KAJODIE L'HEUREUX [facility] 03/21/2025 09:02:42 What Is Your Relationship Status? [...] Disease N Heart Trouble N Heart Attack ([place]) N Gastrointestinal Disease N Cholesterol N Diabetes N Autoimmune disease N Bleeding Disorder N Inflammatory Joint disease N Orthotics N Arthritis N Seizures/Epilepsy N [...] ICD10 Code Diagnosis IMO Codes Diagnosis Note [id number] Villa Lowry PA-C [place] [facility] [place] [address] [place] [address] 03/21/2025 08:33:31 03/30/2025 14:31:43 Pain in right foot 2802211426 15406 M79.671 191482 Peroneal t endinitis of right lower limb 7481413808 28817 M76.71 [id number] I am prescribin g this patient oral [...] Name 05/21/2025 1 [employer] [place] [facility] (EPO [id number] Yahaira Jaeger [id number] 197 Yahaira Jaeger OBGyn Episode No OBEpisode recorded.
--- OUTSIDE RECORDS SUMMARY | 2025-06-07 19:13 | XMS_ITS | Clinical Summary ---
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 She was seen [facility] x 2 and had undergone right [...] any relief. She was seen by at [facility] traveling phlebotomist who switched her out of the boot [...] -Patient has an appointment coming up with [facility] on 05/11 patient was advised to [...] she does have an appointment scheduled with [facility] on 05/11 for further evaluation. Of [...] without improvement on prednisone, will refer to [facility] per patient request. Also, given the [...] EDT): Patient underwent laboratory data done at [facility]. Her labs were discussed during her office visit. She is up-to-date on her colonoscopy, mammogram and Pap smear will be completed this fall at [facility]. Annual physical 1 year Migraine without [...] up with neurology and referral placed to [facility] per patient request Urine frequency 12/14/2023 Assessment [...] back pain. She has been seen by [facility] with noted cortisone injections. She has been managing her pain with PT, ibuprofen, stretching, heat, and lidocaine patches. During her last visit in January, she asked to have her PMLA extended. Patient is a will be undergoing cortisone injections through [facility] in the upcoming weeks Assessment & Plan (03/13/2025 10:29 PM EDT): Chronic, unchanged, though symptoms are significantly impacting function today. Will make f/u with either [facility] or [facility] Assessment & Plan (01/25/2025 8:09 AM EDT): Patient follows closely with [facility] and has undergone cortisone [...] (04/14/2024 9:44 AM EDT): Continue follow-up with [facility] as she notes that she prefers their office over [facility]. Does note that previous injections were helpful for recent travel to [place]. Hypothyroidism 12/21/2017 Assessment & Plan (05/03/2025 7:53 [...] syndrome 12/21/2017 12/14/2023 Cervical radicular pain 12/21/2017 04/2 10/2023 Cervicalgia 12/21/2017 05/03/2025 Chronic nonintractable headache 12/21/2017 12/14/2023 Gastroesophageal reflux dise ase without esophagitis 12/21/2017 12/14/2023 Post menopausal syndrome 12/21/2017 Restless leg syndrome 12/21/20172017 Restless legs syndrome 12/21/201712/13 Thyroid nodule 12/21/2017 12/14/2023 Vertigo 12/21/2017 07/16/2021 Osteopenia 12/21/2017 12/14/2023 Encounters Date Type Department Care Team Description 06/07/2025 Transcribe Orders Virtual Department [address] [place] [address] Daniella Pink MD Chronic gout without tophus, unspecified cause, unspecified site (Primary Dx); Other chondrocalcinosis, unspecified site 06/06/2025 Orders Only [facility] Internal Medicine [address] [place] [address] Kristian Young MD 06/04/2025 Refill [facility] [address] [place] [address] Miguel Juan PA-C Medication Refill 06/01/2025 Orders Only [facility] Internal Medicine [address] [place] [address] Kristian Young MD 05/28/2025 Refill [facility] [address] [place] [address] Ami Hoffman, LINDA Medication Refill 05/14/2025 Orders Only [facility] [address] [place] [address] Kristian Young MD 05/03/2025 8:00 AM EDT Office Visit [facility] [address] [place], [place] [phone] Miguel Juan PA-C Mixed hyperlipidemia (Primary Dx); Acquired hypothyroidism; Chronic bilateral low back pain with left-sided sciatica; Olecranon bursitis of right elbow; Acute right ankle pain 04/03/2025 Orders Only [facility] Internal [facility] [address] [place] [address] Kristian Young MD 04/02/2025 Orders Only [facility] [address] [place] [address] ProviderKristian MD 03/30/2025 1:00 PM EDT Office Visit [facility] [address] [place] [address] Miguel Juan PA-C Carey, Samantha, PA-C Olecranon bursitis of right elbow (Primary Dx) 03/28/2025 Documentation [facility] [address] [place] [address] Miguel Juan PA-C 03/28/2025 Orders Only [facility] [address] [place] [address] Kristian Young MD 03/15/2025 Orders Only [facility] [address] [place] [address] Kristian Young MD 03/14/2025 Orders Only [facility] [address] [place] [address] Boris Roberts MD Poison mis dermatitis (Primary Dx) 03/13/2025 1:30 PM EDT Office Visit [facility] [address] [place], [place] [phone] Lizett Riddle CNP Achilles tendinitis of right lower extremity (Primary Dx); Elevated C-reactive protein (CRP); Spasm of both trapezius muscles; Poison mis dermatitis; Chronic bilateral low back pain with left-sided sciatica 03/13/2025 Orders Only [facility] Internal Medicine [address] [facility] [place] [address] Kristian Young MD 03/12/2025 Orders Only [facility] Internal Medicine [address] [place] [address] Kristian Young MD 03/12/2025 Telephone [facility] [address] [facility] [place] [phone] Ewa Longo, ALEJANDRA Appointment from Last 3 [...] Description 08/09/2025 8:00 AM EST Office Visit [facility] [place] [facility] [address] [place] [address] Miguel Juan PA-C [address] [place] [address] [email or web address] Health Maintenance Due Date Last Done Comments [...] LAB Routine 05/30/2025 11:34 AM EDT OUTSIDE LAB Routine 05/30/2025 8:07 AM EDT OUTSIDE MR EXTREMITY LOWER REPORT [...] 11:34 AM EDT) Only the most recent of4 resultswithin the time period is included. Historical Provider LAB BLOOD ORDERABLES Loren l Result * Outside MR Extremity Lower report Only (05/10/2025 8:24 AM EDT) Historical Provider MD DAUGHERTY MR EXTREMITY Final Re sult * Lyme Screen with Reflex to Immunoblot, Blood (03/30/2025 3:50 PM EDT) Historical Provider LAB BLOOD ORDERABLES Loren l Result * Rheumatoid factor (03/30/2025 3:50 PM EDT) Result [facility] LAB BLOOD ORDERABLES Loren l Result * Uric acid (03/30/2025 3:50 PM EDT) Result [facility] LAB BLOOD ORDERABLES Loren l Result * Outside XR Extremity Upper Report Only (03/27/2025 7:51 AM EDT) Result [facility] IMG XR UPPER EXTREMITY Fi nal Result * Outside XR Imaging Report Only (03/27/2025 7:46 AM EDT) Result [facility] IMG XR CHEST Final Res ult * Outside XR Imaging Report Only (03/15/2025 8:10 AM EDT) Result [facility] IMG XR CHEST Final Res ult * Outside Potassium Level (03/15/2025) Potassium level - External 3.4 3.4 - 5.0 mmol/L Result [facility] LAB BLOOD ORDERABLES Loren l Result * Outside Serum Creatinine Level (03/15/2025) Creatinine, serum - External 0.8 0.8 - 1.3 mg/dL Result [facility] LAB BLOOD ORDERABLES Loren l Result * Outside ALT Level (03/15/2025) ALT - External 14 5 - 30 U/L Result [facility] LAB BLOOD ORDERABLES Loren l Result * Outside XR??Chest Report Only (03/12/2025 4:18 PM EDT) Result [facility] IMG XR CHEST Final Res ult * Outside XR Extremity Lower Report Only (03/12/2025 4:02 PM EDT) Result [facility] Provider IMG XR LOWER EXTREMITY Fi nal Result * Outside Imaging Report Only (03/12/2025 10:12 AM EDT) Result [facility] Provider IMG XR CHEST Final Res ult * Outside TSH Level (01/13/2025) TSH - External 0.61 0.5 - 5 uIU/L Result [facility] Provider LAB BLOOD ORDERABLES Loren l Result * Outside Glucose,Fasting (01/13/2025) Glucose, fasting - External 96 65 - 99 mg/dL Result [facility] LAB BLOOD ORDERABLES Loren l Result * Outside HDL (01/13/2025) Pathologist [facility] HDL - External 44 40 - 80 mg/dL Result [facility] Provider LAB BLOOD ORDERABLES Loren l Result * HM MAMMOGRAPHY FOR RESULT ENTRY ONLY (08/26/2024 10:07 AM EST) Result [facility] Provider HEALTH MAINTENANCE Edited Result - Final * DXA Screening (08/19/2023 10:27 AM EST) Anatomical Region Laterality Modality Bone Density Bone Density Result [facility] Rachna Bernard NP IMG BD BONE DENSITY DEXA Final Result * Hepatitis C antibody, qualitative (01/09/2022 3:00 PM EDT) Blood Result [facility] Rachna Bernard NP LAB BLOOD ORDERABLES Final Resu lt [address] [address] * HM COLONOSCOPY FOR RESULT ENTRY ONLY (06/20/2021) Result [facility] Provider HEALTH MAINTENANCE Edited Result - Final from Last 3 Months or Most Recently Relevant to Health Maintenance Insurance vSocial BENEFITS ADMINISTRATORS vSocial BENEFITS ADMINISTRATORS vSocial BENEFITS ADMINISTRATORS vSocial BENEFITS ADMINISTRATORS vSocial BENEFITS ADMINISTRATORS [employer]Social BENEFITS ADMINISTRATORS vSocial BENEFITS ADMINISTRATORS [employer] BENEFITS ADMINISTRATORS vSocial BENEFITS ADMINISTRATORS Care Teams Parachute Line Tier Relationship Specialty Start Date End Date Miguel Juan PA-C [address] [place] [address] [email or web address] PCP - General Physician Geological Manager 10/16/24 Additional Source Comments The information contained in this document represents components of the legal health record. It is not the complete legal health record.[facility]
--- OUTSIDE RECORDS SUMMARY | 2025-06-07 19:13 | XMS_ITS | Encounter Summary ---
Author Organization [facility] Address [address] [place] [address] [place] [address] Phone Care Team Providers Care Jewelry Designer Name Role Phone Miguel Juan PA-C Primary Care Provider [phone] Reason for Visit * Reason Comments Medication Refill Encounter Details Date Type Department Care Team (Late st Contact Info) Description 06/04/2025 Refill [facility] Internal Medicine [address] [place], [place] [phone] Miguel Juan PA-C [address] [place] [address] [email or web address] Medication Refill Social History Tobacco Use Types [...] 05/03/2025 Miguel Juan PA-C - Internal Medicine [facility] > Requested f/u: Return in about 3 months (around 08/02/2025). Upcoming visit: 08/09/2025 Miguel Juan PA-C - Internal Medicine [facility] ACTIONS TAKEN BY Katy Cruz [...] Description 08/09/2025 8:00 AM EST Office Visit [facility] Internal Medicine [address] [place] [address] Miguel Juan PA-C [address] [place] [address] [email or web address] documented as of this encounter Visit Diagnoses Not on filedocumented in this encounter Additional Health Concerns Assessment Noted Time PHQ-2 Depression Total Score: 0 01/23/20 25 12:24 PM EDT documented as of this encounter Care Teams Jewelry Designer Relationship Specialty Start Date End Date Miguel Juan PA-C [address] [place] [address] [email or web address] PCP - General Physician Subpoena Server 10/16/24 documented as of this encounter Additional Source Comments The information contained in this document represents components of the legal health record. It is not the complete legal health record.[facility]
--- OUTSIDE RECORDS SUMMARY | 2025-06-07 19:13 | XMS_ITS | Encounter Summary ---
Author Organization [facility] Address [address] [place] [address] [place] [address] Phone Care Team Providers Care Lime Boiler Name Role Phone Miguel Juan PA-C Primary Care Provider [phone] Encounter Details Date Type Department Care Team (Late st Contact Info) Description 06/01/2025 Orders Only [facility] Internal Medicine [address] [place] [address] Provider, MD Kristian [facility] [place] [address] Social History Tobacco Use Types Packs/Day Years [...] AM EST Office Visit [facility] [address] [place] [address] Miguel Juan PA-C [address] [place] [address] documented as of this encounter Procedures Procedure [...] documented as of this encounter Care Teams Lime Boiler Relationship Specialty Start Date End Date Miguel Juan PA-C [address] [place] [address] PCP - General Physician Boiler Blower 10/16/24 documented as of this encounter Additional Source Comments The information contained in this document represents components of the legal health record. It is not the complete legal health record.[facility]
--- OUTSIDE RECORDS SUMMARY | 2025-06-07 19:13 | XMS_ITS | Encounter Summary ---
Author Organization [facility] Address [address] [place] [address] [place] [address] Phone Care Team Providers Care Funeral Planning Counselor Name Role Phone Miguel Juan PA-C Primary Care Provider [phone] Encounter Details Date Type Department Care Team (Late st Contact Info) Description 06/06/2025 Orders Only [facility] Internal Medicine [address] [place] [address] Provider, MD Kristian [facility] [place] [address] Social History Tobacco Use Types Packs/Day Years [...] EST Office Visit [facility] 40 [place] [address] Miguel Juan PA-C [address] [place] [address] [email or web address] documented as of this encounter Procedures Procedure Name Priority Date/Time Associated Diagnosis Comments OUTSIDE LAB Routine 05/30/2025 8:07 AM EDT documented in this encounter Results * Outside Lab (05/30/2025 8:07 AM EDT) us Historical Provider LAB BLOOD ORDERABLES Loren l Result documented in this encounter Visit Diagnoses Not on filedocumented in this encounter Additional Health Concerns Assessment Noted Time PHQ-2 Depression Total Score: 0 01/23/20 12:24 PM EDT documented as of this encounter Care Teams Funeral Planning Counselor Relationship Specialty Start Date End Date Miguel Juan PA-C [address] [place] [address] PCP - General Physician Entry Level Web Developer 10/16/24 documented as of this encounter Additional Source Comments The information contained in this document represents components of the legal health record. It is not the complete legal health record.[facility]
--- OUTSIDE RECORDS SUMMARY | 2025-06-07 19:13 | XMS_ITS | Encounter Summary ---
Author Organization [facility] Address [address] [place] [address] [place] [address] Phone Care Team Providers Care Pmo Analyst Name Role Phone Miguel Juan PA-C Primary Care Provider [phone] Reason for Referral * MRI/CAT Scan - New Request Specialty Diagnoses / Procedures Referred By Elvira raya Referred To Contact Radiology Diagnoses Chronic gout without tophus, unspecified cause, unspecified site Other chondrocalcinosis, unspecified site Procedures CT Ankle (Right) Daniella Pink MD [address] [place] [address] [place] [address] Phone: tel: fax: Referral ID Status Reason Start Date Expiration Date V isits Requested Visits Authorized [id number] New Request 06/07/2025 1 1 Encounter Details Date Type Department Care Team (Late st Contact Info) Description 06/07/2025 Transcribe Orders Virtual Department [address] [place] [address] Daniella Pink MD [address] [place] [address] [place] [phone] Chronic gout without tophus, unspecified cause, unspecified site (Primary Dx); Other chondrocalcinosis, unspecified site Social History Tobacco Use Types Packs/Day Years [...] Description 08/09/2025 8:00 AM EST Office Visit [facility] Internal Medicine [address] [place], [place] [phone] Miguel Juan PA-C [address] [place] [address] [email or web address] Scheduled Orders Name Type Priority Associated Diagnoses Orde r Schedule CT Ankle (Right) Imaging Routine Chronic gout without tophus, unspecified cause, unspecified site Other chondrocalcinosis, unspecified site Expected: 06/07/2025, Expires: 06/07/2026 documented as of this encounter Visit Diagnoses Diagnosis Chronic gout without tophus, unspecified cause, unspecified site- Primary Other chondrocalcinosis, unspecified site documented in this encounter Additional Health Concerns Assessment Noted Time PHQ-2 Depression Total Score: 0 01/23/20 25 12:24 PM EDT documented as of this encounter Care Teams Pmo Analyst Relationship Specialty Start Date End Date Miguel Juan PA-C [address] [place] [address] PCP - General Physician Calculation Reviewer 10/16/24 documented as of this encounter Additional Source Comments The information contained in this document represents components of the legal health record. It is not the complete legal health record.[facility]
--- OUTSIDE RECORDS SUMMARY | 2025-06-07 19:13 | XMS_ITS | Encounter Summary ---
Author Organization [facility] Address [address] [place] [address] [place] [address] Phone Care Team Providers Care Java Solutions Architect Name Role Phone Vimal Merino MD Unavailable Rosalio Galeana MD Unavailable [phone] Rachna Bernard BLOOMING MILL SUPERVISOR Unavailable [phone] Rachna Bernard BLOOMING MILL SUPERVISOR Primary Care Provider Ami Hoffman GROUND HOST/HOSTESS Primary Care Provider [phone] Miguel Juan PA-C Primary Care Provider [phone] Encounter Details Date Type Department Care Team (Latest Contact Info) Description 02/17/2018 Transcribe Orders [facility] [address] [place], [place] [phone] Heath Moy MD [address] [place] [address], [address] [place], [place] [phone] [email or web address] MS (multiple sclerosis) (Primary Dx) Social [...] Visit [facility] Internal Medicine [address] [place] [address] Miguel Juan PA-C [address] [place] [address] [email or web address] documented as of this encounter Results * Miscellaneous lab test (02/17/2018 3:32 PM EDT) TESTS REQUESTED MYELIN OLIGODENDROCYTE GLYCOPROTEIN [facility] SPECIMEN/TUBE TYPE RED TOP [facility] REQUEST RECEIVED Request received. A separate order for the requested test will be generated by the laboratory. [facility] Blood 02/17/2018 3:32 PM EDT 02/17/2018 3:41 PM EDT us Heath Moy MD LAB BLOOD ORDERABLES Final R esult Performing Organization Address City/State/[facility] Co de Phone Number [facility] [address] [place] [address] documented in this encounter Visit Diagnoses Diagnosis [...] documented as of this encounter Care Teams Java Solutions Architect Relationship Specialty Start Date End Date Rachna Bernard NP [address] [facility] [address] [place] [address] PCP - General Family Medicine 08/18/17 11/17/23 Ami Hoffman FNP [address] [facility] [address] [place] [address] PCP - General Nurse Practitioner 11/18/23 10/15/24 Miguel Juan PA-C [address] [place] [address] PCP - General Physician Middle School Coach 10/16/24 Vimal Merino MD [address] [place] [address] Historical LMR Provider 06/08/17 12/07/19 Rosalio Galeana MD [address] [facility] [place] [address] Historical LMR Provider 06/08/17 12/07/19 Rachna Bernard NP [address] [facility] [address] [place] [address] Historical LMR Provider 06/08/17 12/07/19 documented as of this encounter Additional Source Comments The information contained in this document represents components of the legal health record. It is not the complete legal health record.[facility]
--- OUTSIDE RECORDS SUMMARY | 2025-06-07 19:13 | XMS_ITS | Encounter Summary ---
Author Organization [facility] Address [address] [place] [address] [place] [address] Phone Care Team Providers Care Fire Crew Specialist Name Role Phone Rachna Bernard COMMUNITY OUTREACH ADVOCATE Primary Care Provider Ami Hoffman Primary Care Provider Miguel Juan PA-C Primary Care Provider [phone] Encounter Details Date Type Department Care Team (Late st Contact Info) Description 06/21/2023 Nurse Triage [facility] [address] [place] [address] Rachna Bernard COMMUNITY OUTREACH ADVOCATE [address] [facility] [address] [place] [address] [email or web address] Social History Tobacco Use Types Packs/Day Years [...] high school, GED, job training, learning the Divehi language, technical skills, or developing parenting skills)? [...] SOB Protocols used: CORONAVIRUS (COVID-19) DIAGNOSED OR [id number] Nurse Triage Encounter Note Reason for Triage Yahaira Jaeger contacted office for None Call Disposition Home Care Patient/caregiver understands and will follow disposition: Unsure Patient/caregiver understands and will follow care advice: Disposition Comments: Protocols used: Coronavirus (Covid-19) Diagnosed Or Pdkkpmheh-Dxogr-Pe Initial Symptom Screening and Assessment [place] None [...] either acetaminophen or ibuprofen. * They are igtg-xha-kdwygbk (OTC) drugs that help treat both fever [...] Description 08/09/2025 8:00 AM EST Office Visit [facility] [address] [place] [address] Miguel Juan PA-C [address] [place] [address] [email or web address] documented as of this encounter Visit Diagnoses Not on filedocumented in this encounter Additional Health Concerns Infection Onset Date Last Indicated Resolved Time CoV-Risk 07/01/2024 07/01/2024 07/12/2024 1:21 AM EST Assessment Noted Time PHQ-2 Depression Total Score: 0 08/18/20 22 3:41 PM EST documented as of this encounter Care Teams Fire Crew Specialist Relationship Specialty Start Date End Date Rachna Bernard COMMUNITY OUTREACH ADVOCATE PCP - General Family Medicine 08/18/17 11/17/23 Ami Hoffman FNP [address] [address] PCP - General Nurse Practitioner 11/18/23 10/15/24 Miguel Juan PA-C [address] [place] [address] [email or web address] PCP - General Physician Bulkhead Carpenter 10/16/24 documented as of this encounter Additional Source Comments The information contained in this document represents components of the legal health record. It is not the complete legal health record.[facility]
== END 2025-06-07 15:45 | disposition home or self-care (01) ==
LOC: HO.PMC 15:25
PROVIDERS: PCP Physician Assistant Surgical; Visit Provider Nurse Practitioner Family
DX: M96.1 Postlaminectomy syndrome, not elsewhere classified (principal); M47.816 Spondylosis without myelopathy or radiculopathy, lumbar region; M53.3 Sacrococcygeal disorders, not elsewhere classified; M46.1 Sacroiliitis, not elsewhere classified
CPT/HCPCS: 99213

== ENCOUNTER 2025-06-12 07:39 | Outpatient (AMB) | payer OTHER, SELFPAY ==
--- OUTSIDE RECORDS SUMMARY | 2020-03-16 09:25 | XMS_ITS | Encounter Summary ---
Author Organization [facility] Address [address] [employer] [facility] [address] [place] [address] Phone Care Team Providers Care Mutuel Cashier Name Role Phone Rachna Bernard GIS MAPPING TECHNICIAN Primary Care Provider [phone] Encounter Details Date Type Department Care Team (Late st Contact Info) Description 03/16/2020 9:25 AM EDT Hospital Encounter [facility] [address] [place] [address] Varsha Britton, PACKAGE LINE RELIEF OPERATOR 30 [place] [address] [email or web address] Social History Tobacco Use Types Packs/Day Years [...] Care Team (Late st Contact Info) Description 06/07/2025 Procedure Pass [facility], Ct Scan - [address] [address] 06/20/2025 7:15 PM EDT Appointment [facility] - [facility] [address] [facility], [place] [address] Daniella Pink MD [address] [place] [address] Dr Dallas Monserrat, [place] [address] 08/09/2025 8:00 AM EST Office Visit [facility] 40 [place] [address] Miguel Juan PA-C 40 [place] [address] [email or web address] documented as of this encounter Procedures Procedure [...] AM EDT No significant bony abnormality. POS [id number] Narrative 03/16/2020 9:51 AM EDT Frontal and lateral views disclose no fracture, subluxation, or other significant abnormality involving the visualized regional skeletal structures. Procedure Note Jarad Goodrich MD - 03/16/2020 Frontal and lateral views disclose no fracture, subluxation, or othersignificant abnormality involving the visualized regional skeletalstructures. IMPRESSION: No significant bony abnormality. POS [id number] Varsha Britton PACKAGE LINE RELIEF OPERATOR IMG XR UPPER EXTREMITY Final Result documented [...] documented as of this encounter Care Teams Mutuel Cashier Relationship Specialty Start Date End Date Rachna Bernard NP [email or web address] PCP - General Family Medicine 08/18/17 11/17/23 documented as of this encounter Additional Source Comments The information contained in this document represents components of the legal health record. It is not the complete legal health record.[facility]
--- OUTSIDE RECORDS SUMMARY | 2025-06-12 07:42 | XMS_ITS | Encounter Summary ---
Author Organization [facility] Address [address] [place] [address] [place] [address] Phone Care Team Providers Care Pattern Shop Supervisor Name Role Phone Miguel Juan PA-C Primary Care Provider [phone] Encounter Details Date Type Department Care Team (Late st Contact Info) Description 06/01/2025 Orders Only [facility] Internal Medicine [address] [place] [address] Provider, MD Kristian [facility] [place] [address] Social History Tobacco Use Types Packs/Day Years [...] st Contact Info) Description 06/07/2025 Procedure Pass [facility], [facility] [address] [place] [address] 06/20/2025 7:15 PM EDT Appointment [facility], Ct Scan - [address] [address] Daniella Pink MD [address] [place] [address] [place] [address] 08/09/2025 8:00 AM EST Office Visit [facility] Internal Medicine [address] [place], [place] [phone] Miguel Juan PA-C 40 [place] [address] documented as of this encounter Procedures Procedure [...] documented as of this encounter Care Teams Pattern Shop Supervisor Relationship Specialty Start Date End Date Miguel Juan PA-C 40 [place] [address] PCP - General Physician Claim Clerk 10/16/24 documented as of this encounter Additional Source Comments The information contained in this document represents components of the legal health record. It is not the complete legal health record.[facility]
--- OUTSIDE RECORDS SUMMARY | 2025-06-12 07:42 | XMS_ITS | Encounter Summary ---
Author Organization [facility] Address [address] [place] [address] [place] [address] Phone Care Team Providers Care Computer Help Desk Specialist Name Role Phone Miguel Juan PA-C Primary Care Provider [phone] Reason for Referral * MRI/CAT Scan - Closed Specialty Diagnoses / Procedures Referred By Elvira raya Referred To Contact Radiology Procedures Outside MR Extremity Lower report Only [facility] Internal Medicine [address] [place] [address] Phone: tel: fax: Referral ID Status Reason Start Date Expiration Date Visits Re quested Visits Authorized [id number] Closed 05/14/2025 1 1 Encounter Details Date Type Department Care Team (Late st Contact Info) Description 05/14/2025 Orders Only [facility] Internal Medicine [address] [place] [address] Kristian Young MD [address] [place] [address] Social History Tobacco Use Types Packs/Day [...] st Contact Info) Description 06/07/2025 Procedure Pass [facility], Ct Scan [address] [address] 06/20/2025 7:15 PM EDT Appointment [address] [address] Daniella Pink MD [address] [place] [address] [place] [address] 08/09/2025 8:00 AM EST Office Visit [facility] Internal Medicine [address] [place] [address] Miguel Juan PA-C 40 [place] [address] [email or web address] documented as of this encounter Procedures Procedure [...] documented as of this encounter Care Teams Computer Help Desk Specialist Relationship Specialty Start Date End Date Miguel Juan PA-C 40 [place] [address] [email or web address] PCP - General Physician Biodiesel Production Associate 10/16/24 documented as of this encounter Additional Source Comments The information contained in this document represents components of the legal health record. It is not the complete legal health record.[facility]
--- OUTSIDE RECORDS SUMMARY | 2025-06-12 07:42 | XMS_ITS | Encounter Summary ---
Author Organization [facility] Address [address] [place] [address] [place] [address] Phone Care Team Providers Care Personal Security Specialist Name Role Phone Vimal Merino MD Unavailable Rosalio Galeana MD Unavailable Rachna Bernard CHILDREN TEACHER Unavailable [phone] Rachna Bernard CHILDREN TEACHER Primary Care Provider Ami Hoffman FACE MAN Primary Care Provider Miguel Juan PA-C Primary Care Provider [phone] Encounter Details Date Type Department Care Team (Latest Contact Info) Description 02/17/2018 Transcribe Orders [facility] Laboratory [address] [place], [place] [phone] Heath Moy MD [address] [place] [address], [address] [place], [place] [phone] [email or web address] MS (multiple sclerosis) (Primary Dx) Social [...] st Contact Info) Description 06/07/2025 Procedure Pass [facility], [address] [address] 06/20/2025 7:15 PM EDT Appointment [address] [address] Daniella Pink MD [address] [place] [address] [place] [address] 08/09/2025 8:00 AM EST Office Visit [facility] Internal Medicine 40 [place] [address] Miguel Juan PA-C 40 [place] [address] [email or web address] documented as of this encounter Results * Miscellaneous lab test (02/17/2018 3:32 PM EDT) TESTS REQUESTED MYELIN OLIGODENDROCYTE GLYCOPROTEIN [facility] SPECIMEN/TUBE TYPE RED TOP [facility] REQUEST RECEIVED Request received. A separate order for the requested test will be generated by the laboratory. [facility] Blood 02/17/2018 3:32 PM EDT 02/17/2018 3:41 PM EDT us Heath Moy MD LAB BLOOD ORDERABLES Final R esult [address] [address] documented in this encounter Visit Diagnoses Diagnosis [...] documented as of this encounter Care Teams Personal Security Specialist Relationship Specialty Start Date End Date Rachna Bernard, CHILDREN TEACHER [address] [place] [address] 6 [place] [address] PCP - General Family Medicine 08/18/17 11/17/23 Ami Hoffman FNP 15 [facility] [address] [place] [address] PCP - General Nurse Practitioner 11/18/23 10/15/24 Miguel Juan PA-C 40 [place] [address] PCP - General Physician Beverage Manager 10/16/24 Vimal Merino MD 40 [place] [address] Historical LMR Provider 06/08/17 12/07/19 Rosalio Galeana MD 22 [facility], [address]nd [place] [address] Historical LMR Provider 06/08/17 12/07/19 Rachna Bernard, CHILDREN TEACHER [address] [place] [address] 6 [place] [address] Historical LMR Provider 06/08/17 12/07/19 documented as of this encounter Additional Source Comments The information contained in this document represents components of the legal health record. It is not the complete legal health record.[facility]
--- OUTSIDE RECORDS SUMMARY | 2025-06-12 07:42 | XMS_ITS | Encounter Summary ---
Author Organization [facility] Address [address] [place] [address] [place] [address] Phone Care Team Providers Care Clerk Guide Name Role Phone Miguel Juan PA-C Primary Care Provider [phone] Encounter Details Date Type Department Care Team (Late st Contact Info) Description 06/06/2025 Orders Only [facility] Internal Medicine [address] [place] [address] Provider, MD [place] [address] Social History Tobacco Use Types Packs/Day Years [...] st Contact Info) Description 06/07/2025 Procedure Pass [facility], [facility] 30 [place] [address] 06/20/2025 7:15 PM EDT Appointment [facility], Ct Scan - [address] [address] Daniella Pink MD [address] [place] [address] [place] [address] 08/09/2025 8:00 AM EST Office Visit [facility] Internal Medicine [address] [place], [place] [phone] Miguel Juan PA-C 40 [place] [address] [email or web address] documented as of this encounter Procedures Procedure [...] documented as of this encounter Care Teams Clerk Guide Relationship Specialty Start Date End Date Miguel Juan PA-C 40 [place] [address] PCP - General Physician Harvesting Manager 10/16/24 documented as of this encounter Additional Source Comments The information contained in this document represents components of the legal health record. It is not the complete legal health record.[facility]
--- OUTSIDE RECORDS SUMMARY | 2025-06-12 07:42 | XMS_ITS | Encounter Summary ---
Author Organization [facility] Address [address] [place] [address] [place] [address] Phone Care Team Providers Care Assistant Tennis Professional Name Role Phone Miguel Jaun PA-C Primary Care Provider [phone] Reason for Referral * MRI/CAT Scan - Authorized Specialty Diagnoses / Procedures Referred By Elvira raya Referred To Contact Radiology Diagnoses Chronic gout without tophus, unspecified cause, unspecified site Other chondrocalcinosis, unspecified site Procedures CT Ankle (Right) Daniella Pink MD [address] [place] [address] [place] [address] Phone: tel: fax: Referral ID Status Reason Start Date Expiration Date V isits Requested Visits Authorized [id number] Authorized 06/07/2025 06/07/2026 1 1 Encounter Details Date Type Department Care Team (Late st Contact Info) Description 06/07/2025 Transcribe Orders Virtual Department 30 [place] [address] Daniella Pink MD [address] [place] [address] [place] [address] Chronic gout without tophus, unspecified cause, unspecified [...] st Contact Info) Description 06/07/2025 Procedure Pass [address] [address] 06/20/2025 7:15 PM EDT Appointment [address] [address] Daniella Pink MD [address] [place] [address] [place] [address] 08/09/2025 8:00 AM EST Office Visit [facility] Internal Medicine [address] [place] [address] Miguel Juan PA-C 40 [place], [place] [phone] [email or web address] Scheduled Orders Name Type Priority Associated Diagnoses [...] documented as of this encounter Care Teams Assistant Tennis Professional Relationship Specialty Start Date End Date Miguel Juan PA-C [address] [place] [address] [email or web address] PCP - General Physician Intelligence Analyst 10/16/24 documented as of this encounter Additional Source Comments The information contained in this document represents components of the legal health record. It is not the complete legal health record.[facility]
--- OUTSIDE RECORDS SUMMARY | 2025-06-12 07:42 | XMS_ITS | Encounter Summary ---
Author Organization [facility] Address [address] [place] [address] [place] [address] Phone Care Team Providers Care Music Librarian Name Role Phone Rachna Bernard STERILE PROCESSING TECHNOLOGIST Primary Care Provider [phone] Ami Hoffman Primary Care Provider Miguel Juan PA-C Primary Care Provider [phone] Encounter Details Date Type Department Care Team (Late st Contact Info) Description 06/21/2023 Nurse Triage [facility] Internal Medicine [address] [facility] [place] [address] Rachna Bernard STERILE PROCESSING TECHNOLOGIST [address] [facility] [address] [place] [address] [email or web address] Social History Tobacco Use Types [...] high school, GED, job training, learning the Greek language, technical skills, or developing parenting skills)? [...] SOB Protocols used: CORONAVIRUS (COVID-19) DIAGNOSED OR [id number] Nurse Triage Encounter Note Reason for Triage Yahaira Jaeger contacted office for None Call Disposition Home Care Patient/caregiver understands and will follow disposition: Unsure Patient/caregiver understands and will follow care advice: Disposition Comments: Protocols used: Coronavirus (Covid-19) Diagnosed Or Fdiybevni-Cvptn-Ia Initial Symptom Screening and Assessment IA None [...] either acetaminophen or ibuprofen. * They are ucej-xfs-kkmzikf (OTC) drugs that help treat both fever [...] st Contact Info) Description 06/07/2025 Procedure Pass [address] [address] 06/20/2025 7:15 PM EDT Appointment [address] [address] Daniella Pink MD [address] [place] [address] [place] [address] 08/09/2025 8:00 AM EST Office Visit [facility] Internal Medicine 40 [place] [address] Miguel Juan PA-C 40 [place], [place] [phone] documented as of this encounter Visit Diagnoses Not on filedocumented in this encounter Additional Health Concerns Infection Onset Date Last Indicated Resolved Time CoV-Risk 07/01/2024 07/01/2024 07/12/2024 1:21 AM EST Assessment Noted Time PHQ-2 Depression Total Score: 0 08/18/20 3:41 PM EST documented as of this encounter Care Teams Music Librarian Relationship Specialty Start Date End Date Rachna Bernard STERILE PROCESSING TECHNOLOGIST PCP - General Family Medicine 08/18/17 11/17/23 Ami Hoffman FNP [address] [address] PCP - General Nurse Practitioner 11/18/23 10/15/24 Miguel Juan PA-C [address] [place] [address] PCP - General Physician Yarn Carrier 10/16/24 documented as of this encounter Additional Source Comments The information contained in this document represents components of the legal health record. It is not the complete legal health record.[facility]
--- OUTSIDE RECORDS SUMMARY | 2025-06-12 07:42 | XMS_ITS | Clinical Summary ---
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 She was seen at the [facility] x 2 and had undergone right [...] any relief. She was seen by at [facility] category consultant who switched her out of the boot [...] -Patient has an appointment coming up with [facility] on 05/11 patient was advised to [...] she does have an appointment scheduled with [facility] on 05/11 for further evaluation. Of [...] without improvement on prednisone, will refer to [facility] per patient request. Also, given the [...] Patient underwent laboratory data done at [facility]. Her labs were discussed during her office visit. She is up-to-date on her colonoscopy, mammogram and Pap smear will be completed this fall at [facility]. Annual physical 1 year Migraine without [...] with neurology and referral placed to [facility] per patient request Urine frequency [...] back pain. She has been seen by [facility] with noted cortisone injections. She has been managing her pain with PT, ibuprofen, stretching, heat, and lidocaine patches. During her last visit in January, she asked to have her PMLA extended. Patient is a will be undergoing cortisone injections through [facility] in the upcoming weeks Assessment & Plan (03/13/2025 10:29 PM EDT): Chronic, unchanged, though symptoms are significantly impacting function today. Will make f/u with either [facility] or [facility] Assessment & Plan (01/25/2025 8:09 AM EDT): Patient follows closely with [facility] and has undergone cortisone [...] (04/14/2024 9:44 AM EDT): Continue follow-up with [facility] as she notes that she prefers their office over [facility]. Does note that previous injections were helpful for recent travel to [place]. Hypothyroidism 12/21/2017 Assessment & Plan (05/03/2025 7:53 [...] Description 06/07/2025 Transcribe Orders Virtual Department 30 [place] [address] Daniella Pink MD Chronic gout without tophus, unspecified cause, unspecified site (Primary Dx); Other chondrocalcinosis, unspecified site 06/06/2025 Orders Only [facility] Internal Medicine [address] [place] [address] Kristian Young MD 06/04/2025 Refill [facility] Internal Medicine [address] [place] [address] Miguel Juan PA-C Medication Refill 06/01/2025 Orders Only [facility] Internal Medicine [address] [place] [address] Kristian Young MD 05/28/2025 Refill [facility] Internal Medicine [address] [place] [address] Ami Hoffman, LINDA Medication Refill 05/14/2025 Orders Only [facility] Internal Medicine [address] [place] [address] Kristian Young MD 05/03/2025 8:00 AM EDT Office Visit [facility] Internal Medicine [address] [place], [place] [phone] Miguel Juan PA-C Mixed hyperlipidemia (Primary Dx); Acquired hypothyroidism; Chronic bilateral low back pain with left-sided sciatica; Olecranon bursitis of right elbow; Acute right ankle pain 04/03/2025 Orders Only [facility] Internal [facility] [address] [place] [address] Kristian Young MD 04/02/2025 Orders Only [facility] Internal [facility] [address] [place] [address] ProviderKristian MD 03/30/2025 1:00 PM EDT Office Visit [facility] Internal [facility] [address] [place] [address] Miguel Juna PA-C Carey, Samantha, PA-C Olecranon bursitis of right elbow (Primary Dx) 03/28/2025 Documentation [facility] Internal [facility] [address] [place] [address] Miguel Juan PA-C 03/28/2025 Orders Only [facility] Internal [facility] [address] [place] [address] Kristian Young MD 03/15/2025 Orders Only [facility] Internal [facility] [address] [place] [address] Kristian Young MD 03/14/2025 Orders Only [facility] Internal [facility] [address] [place] [address] Boris Roberts MD Poison mis dermatitis (Primary Dx) 03/13/2025 1:30 PM EDT Office Visit [facility] Internal [facility] [address] [place], [place] [phone] Lizett Riddle CNP Achilles tendinitis of right lower extremity (Primary Dx); Elevated C-reactive protein (CRP); Spasm of both trapezius muscles; Poison mis dermatitis; Chronic bilateral low back pain with left-sided sciatica 03/13/2025 Orders Only [facility] Internal Medicine 40 [facility] [place] [address] Kristian Young MD 03/12/2025 Orders Only [facility] Internal Medicine [address] [place] [address] Kristian Young MD 03/12/2025 Telephone [facility] Internal [facility] 40 [facility] [place] [phone] Ewa Longo, ALEJANDRA Appointment from Last 3 [...] st Contact Info) Description 06/07/2025 Procedure Pass [address] [address] 06/20/2025 7:15 PM EDT Appointment [address] [address] Daniella Pink MD [address] [place] [address] [place] [address] 08/09/2025 8:00 AM EST Office Visit [facility] Internal Medicine [address] [place] [address] Miguel Juan PA-C [address] [place] [address] Health Maintenance Due Date Last Done Comments [...] of4 resultswithin the time period is included. Result [facility] LAB BLOOD ORDERABLES Loren l Result * Outside MR Extremity Lower report Only (05/10/2025 8:24 AM EDT) Result [facility] Provider IMG MR EXTREMITY Final Re sult * Lyme Screen with Reflex to Immunoblot, Blood (03/30/2025 3:50 PM EDT) Result [facility] LAB BLOOD ORDERABLES Loren l Result * Rheumatoid factor (03/30/2025 3:50 PM EDT) Result [facility] LAB BLOOD ORDERABLES Loren l Result * Uric acid (03/30/2025 3:50 PM EDT) Result [facility] LAB BLOOD ORDERABLES Loren l Result * Outside XR Extremity Upper Report Only (03/27/2025 7:51 AM EDT) Result [facility] IMG XR UPPER EXTREMITY Fi nal Result * Outside XR Imaging Report Only (03/27/2025 7:46 AM EDT) Result [facility] IMG XR CHEST Final Res ult * Outside XR Imaging Report Only (03/15/2025 8:10 AM EDT) Result [facility] IMG XR CHEST Final Res ult * Outside Potassium Level (03/15/2025) Potassium level - External 3.4 3.4 - 5.0 mmol/L Result [facility] LAB BLOOD ORDERABLES Loren l Result * Outside Serum Creatinine Level (03/15/2025) Creatinine, serum - External 0.8 0.8 - 1.3 mg/dL Result [facility] LAB BLOOD ORDERABLES Loren l Result * Outside ALT Level (03/15/2025) Pathologist [facility] ALT - External 14 5 - 30 U/L Result [facility] Provider LAB BLOOD ORDERABLES Loren l Result * Outside XR??Chest Report Only (03/12/2025 4:18 PM EDT) Result [facility] Provider IMG XR CHEST Final Res ult * Outside XR Extremity Lower Report Only (03/12/2025 4:02 PM EDT) Result [facility] Provider IMG XR LOWER EXTREMITY Fi nal Result * Outside Imaging Report Only (03/12/2025 10:12 AM EDT) Result [facility] Provider IMG XR CHEST Final Res ult * Outside TSH Level (01/13/2025) Pathologist [facility] TSH - External 0.61 0.5 - 5 uIU/L Result [facility] Provider LAB BLOOD ORDERABLES Loren l Result * Outside Glucose,Fasting (01/13/2025) Pathologist [facility] Glucose, fasting - External 96 65 - 99 mg/dL Result [facility] Provider LAB BLOOD ORDERABLES Loren l Result * Outside HDL (01/13/2025) [facility] HDL - External 44 40 - 80 mg/dL Result [facility] Provider LAB BLOOD ORDERABLES Loren l Result * HM MAMMOGRAPHY FOR RESULT ENTRY ONLY (08/26/2024 10:07 AM EST) Result [facility] Provider HEALTH MAINTENANCE Edited Result - Final * DXA Screening (08/19/2023 10:27 AM EST) Anatomical Region Laterality Modality Bone Density Bone Density Result [facility] Rachna Bernard PIE FILLER IMG BD BONE DENSITY DEXA Final Result * Hepatitis C antibody, qualitative (01/09/2022 3:00 PM EDT) Blood Rachna Bernard NP LAB BLOOD ORDERABLES Final Resu lt [facility] [address] [place] [address] * COLONOSCOPY FOR RESULT ENTRY ONLY (06/20/2021) us Historical Provider HEALTH MAINTENANCE Edited Result - Final from Last 3 Months or Most Recently Relevant to Health Maintenance Insurance [employer] Member Subscriber Plan / Payer (Ef fective 2019-Present) Name:Yahaira Jaeger Relation to Subscriber:Self Name:Yahaira Jaeger Payer ID:[id number] (NAIC) Type:PPO Address: [place] [id number] [facility] [employer] Care Teams Data Warehousing Architect Relationship Specialty Start Date End Date Miguel Juan PA-C [address] [place] [address] [email or web address] PCP - General Physician Tobacco Sampler 10/16/24 Additional Source Comments The information contained in this document represents components of the legal health record. It is not the complete legal health record.[facility]
--- NOTE | 2025-06-12 07:56 | A.OFFVIS_ITS ---
Vital Signs 06/12/25 07:57 Height 5 ft 3 in Weight 168 lb BMI 29.8 Intake Visit Reasons: fu right ankle sprain - after starting PT Intake Note: Yahaira is a 70 year old female who presents to the office today for a follow up for her right ankle sprain. Pt was referred to PT to help with strength and mobility. Pt was advised to Alternate between using the boot and brace as needed for support. Pt states she is no longer using the boot and she will utilize the brace occasionally when she sees swelling and is experiencing pain in her ankle. Patient has attended three appointment with PT and the stretching exercises she has been performing at home this has helped her slightly. Allergies gluten (Gluten) Allergy (Severe, Verified 06/12/25 08:00) Gastrointestinal Upset Penicillins Allergy (Intermediate, Verified 06/12/25 08:00) Rash Sulfa (Sulfonamide Antibiotics) Allergy (Intermediate, Verified 06/12/25 08:00) Rash Codeine Phosphate Allergy (Intermediate, Uncoded 03/15/25 07:01) Nausea HPI Comments Details: The patient is a 70-year-old female presenting for a follow up of right chronic ankle instability. She states her swelling has improved from the last visit but she still experiences moderate pain to the ankle, worsened when driving and activity. She states she has had 3 sessions of PT with mild improvement. She states she goes 2x per week. Her pain is localized to the lateral aspect of the ankle and the distal aspect of the Achilles tendon. She no longer wears the CAMboot and wears the lace up brace intermittently and states she noticed she no longer has excruciating pain without the brace, but does still experience moderate pain. Bilateral foot cramps were noted during physical therapy, which were severe enough to halt the session. The patient is currently taking diclofenac for pain management. A dual-energy CT scan is scheduled to assess for possible gout and other issues in the ankle and elbow. She denies any new pedal injuries. She denies any other pedal concerns. She denies any current nausea, vomiting, fever, or chills. 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 Sprain of calcaneofibular ligament of right ankle, initial encounter Sprain of anterior talofibular ligament of right ankle Right ankle sprain Transient neurological symptoms Hypersomnia Snoring Chest pain Crescendo angina Angina pectoris Hypothyroidism Low back pain COVID-19 vaccine series completed Anxiety GERD (gastroesophageal reflux disease) Celiac disease Restless leg syndrome Surgical History Hx of bilateral cataract extraction History of esophagogastroduodenoscopy (EGD) Hx of colonoscopy Hx of foot surgery Hx of tonsillectomy Hx of appendectomy History of back surgery Family History Daughter Celiac disease Social History Household Members: Children Household Members Other:: son age 17 Housing: House Are you a primary career technology teacher to a significant other at home: No Do you presently have visiting nurse or other home services: No Alcohol intake: current Alcohol intake frequency: holidays/special occasions only Patient Tobacco Use Status: Former Tobacco user Tobacco use type: Cigarette Advance Directives Date on File: 03/14/21 service: No Current occupational status: employed Current occupation: [employer]/ 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 Review of Systems Const Details: Musculoskeletal: Reports moderate right ankle pain, cramping, and instability. All systems reviewed & are unremarkable except as noted in HPI and below Physical Exam Vital Signs: BMI result Body Mass Index 29.8 Extrem Other: Right lower extremity focused exam: Derm: No open wounds, lesions, abrasions noted. Skin turgor supple and intact. Minimal edema noted to the lateral aspect of the ankle. No ecchymosis or discoloration noted. No clinical signs of infection. No maceration noted. Vasc: DP/PT pulses palpable. Cap refill time less than 3 seconds. Varicosities noted. Temperature gradient warm to warm. Pedal hair absent. Neuro: Protective sensation is grossly intact. Musculoskeletal: Pain on palpation to the right ankle along the lateral aspect of the ankle in the area of the lateral gutter and ATFL. Pain on palpation to the Achilles tendon insertional point and distal aspect of the Achilles. No pain on palpation to the area of the CFL. No pain on palpation to the deltoid. Pain with ankle range of motion, mostly plantarflexion and dorsiflexion. Muscle manual testing 4/5. Positive anterior drawer test. No crepitus noted. Results Reviewed Results Reviewed: Laboratory Tests 03/12/25 03/30/25 09:07 14:06 C-Reactive Protein 2.99 H Rheumatoid Factor 21.[address] scan[address] Podiatry Read of Right ankle MRI (05/10/25): Edema noted in the area of the lateral ankle ligaments, ankle, Achilles tendon. No complete ruptures noted. Sprained lateral ankle ligaments. Arthritic changes noted to the foot. Right ankle MRI (05/10/25): Findings: There is edema and cystic change in the navicular bone and medial cuneiform, degenerative. Intact articulations. Mild osteophytes. Small tibiotalar and subtalar joint effusions. Normal talar dome and subtalar joint cartilage. The Achilles tendon is increased in size and signal with mild peritendinous edema. The flexor and extensor tendons are intact. Deltoid ligament is intact. There is increased signal in the calcaneofibular and anterior talofibular ligaments. Normal anterior tibiofibular, posterior tibiofibular and posterior talofibular ligaments. Plantar fascia is intact and normal in size and signal. There is a calcaneal spur. No muscular atrophy. There is edema in the musculature and subcutaneous fat. Impression: Edema and cystic change in the navicular and medial cuneiform, degenerative. Small tibiotalar and subtalar joint effusions. Achilles tendinopathy with question of interstitial tears and mild peritendinitis. Sprain of the calcaneofibular and anterior talofibular ligaments. Edema in the soft tissues. Right foot x-rays (03/15/2025): FINDINGS: No acute cortical disruption. No gross malalignment. Degenerative changes in the first tarsometatarsal joint. No lytic or blastic lesions. Small spur, calcaneus. No subcutaneous emphysema. No gross joint effusion. Prominent soft tissues in the distal dorsal aspect of the foot. IMPRESSION: Soft tissue edema without subcutaneous emphysema. No acute fracture or dislocation. No osteomyelitis on x-ray. Right ankle x-rays (03/12/2025): FINDINGS: No fracture, dislocation, or suspicious bone lesion. There is anatomical alignment. The mortise is intact. The talar dome is normal. Joint spaces are preserved. The subtalar joints appear normal. There is a small plantar calcaneal spur. No soft tissue abnormalities. IMPRESSION: No acute bony abnormalities right ankle. Assessment & Plan Assessment & Plan (1) Ankle pain, right: Code(s): M25.571 - Pain in right ankle and joints of right foot Category: Medical Qualifiers: Chronicity: acute Qualified Code(s): M25.571 - Pain in right ankle and joints of right foot (2) Right ankle sprain: Code(s): S93.401A - Sprain of unspecified ligament of right ankle, initial encounter Category: Medical Qualifiers: Encounter type: subsequent encounter Involved ligament of ankle: anterior talofibular ligament Qualified Code(s): S93.491D - Sprain of other ligament of right ankle, subsequent encounter (3) Chronic instability of ankle: Code(s): M25.373 - Other instability, unspecified ankle Category: Medical (4) Insertional tendinopathy of right Achilles tendon: Code(s): M76.61 - Achilles tendinitis, right leg Category: Medical (5) Sprain of anterior talofibular ligament of right ankle: Code(s): S93.491A - Sprain of other ligament of right ankle, initial encounter Category: Medical Qualifiers: Encounter type: subsequent encounter Qualified Code(s): S93.491D - Sprain of other ligament of right ankle, subsequent encounter (6) Sprain of calcaneofibular ligament of right ankle, initial encounter: Code(s): S93.411A - Sprain of calcaneofibular ligament of right ankle, initial encounter Category: Medical (7) Right ankle swelling: Code(s): M25.471 - Effusion, right ankle Category: Medical (8) Rheumatoid arthritis: Code(s): M06.9 - Rheumatoid arthritis, unspecified Category: Medical Qualifiers: Rheumatoid factor presence: with rheumatoid factor Plan Patient was informed and verbally consented to the use of an ambient scribe for clinic note documentation during this visit. I discussed with the patient the current management of her right ankle pain, emphasizing the importance of continuing physical therapy to improve strength and range of motion. We reviewed the use of lidocaine patches and diclofenac for pain management and discussed the potential for a corticosteroid injection if pain persists. I explained the upcoming dual-energy CT scan to assess for gout and other conditions, and we agreed to follow up after the results are available. - Continue physical therapy sessions to improve strength and range of motion in the ankle. - Use lidocaine patches to manage pain. - Continue diclofenac for pain management. - Await results of the dual-energy CT scan to evaluate for gout and other conditions. - Continue RICE protocol. - Wear lace up ankle brace and alternate lacing of the brace for more comfort. - Consider corticosteroid injection if pain persists despite current management strategies. - Consider surgical intervention if conservative treatment fails. RTC in 6 weeks for re-evaluation. Coding Level of Care Code Est Pt Level 4 (71029) Diagnoses Ankle pain, right M25.571 Chronicity: acute Sprain of anterior talofibular ligament of right ankle, subsequent encounter S93.491D Encounter type: subsequent encounter Involved ligament of ankle: anterior talofibular ligament Chronic instability of ankle M25.373 Insertional tendinopathy of right Achilles tendon M76.61 Sprain of anterior talofibular ligament of right ankle, subsequent encounter S93.491D Encounter type: subsequent encounter Sprain of calcaneofibular ligament of right ankle, initial encounter S93.411A Right ankle swelling M25.471 Rheumatoid arthritis M06.9 Rheumatoid factor presence: with rheumatoid factor Time Spent (min) 30
[2025-06-12 07:57] VITALS: BMI 29.8
== END 2025-06-12 08:18 | disposition home or self-care (01) ==
LOC: HO.HPODS 07:40
PROVIDERS: PCP Physician Assistant Surgical; Visit Provider Student in an Organized Health Care Education/Training Program
DX: M25.571 Pain in right ankle and joints of right foot (principal); S93.491D Sprain of other ligament of right ankle, subsequent encounter; M25.373 Other instability, unspecified ankle; M76.61 Achilles tendinitis, right leg; S93.411A Sprain of calcaneofibular ligament of right ankle, initial encounter; M25.471 Effusion, right ankle; M06.9 Rheumatoid arthritis, unspecified
CPT/HCPCS: 99214

== ENCOUNTER 2025-07-03 06:25 | Outpatient (REF) | payer OTHER, SELFPAY ==
--- OUTSIDE RECORDS SUMMARY | 2020-03-16 08:25 | XMS_ITS | Encounter Summary ---
Author Organization [facility] Address [address] [employer] [facility] [address] [place] [address] Phone Care Team Providers Care Utility Service Worker Name Role Phone Rachna Bernard SALES COMMUNICATIONS MANAGER Primary Care Provider [phone] Encounter Details Date Type Department Care Team (Late st Contact Info) Description 03/16/2020 9:25 AM EDT Hospital Encounter [facility] [address] [place] [address] Varsha Britton, INSULATION HELPER [address] [place] [address] [email or web address] Social History Tobacco Use Types Packs/Day Years [...] EST Office Visit [facility] [place] [facility] [address] [place] [address] Miguel Juan PA-C 40 [place] [address] [email or web address] documented as of this encounter Procedures Procedure [...] AM EDT No significant bony abnormality. POS [id number] Narrative 03/16/2020 9:51 AM EDT Frontal and lateral views disclose no fracture, subluxation, or other significant abnormality involving the visualized regional skeletal structures. Procedure Note Jarad Goodrich MD - 03/16/2020 Frontal and lateral views disclose no fracture, subluxation, or othersignificant abnormality involving the visualized regional skeletalstructures. IMPRESSION: No significant bony abnormality. POS [id number] Varsha Britton INSULATION HELPER IMG XR UPPER EXTREMITY Final Result documented [...] documented as of this encounter Care Teams Utility Service Worker Relationship Specialty Start Date End Date Rachna Bernard NP [email or web address] PCP - General Family Medicine 08/18/17 11/17/23 documented as of this encounter Additional Source Comments The information contained in this document represents components of the legal health record. It is not the complete legal health record.[facility]
--- NOTE | ~2025-07-03 | FL_ITS ---
EXAMINATION: XR FLUOROSCOPY WITH IMAGES CLINICAL INFORMATION: Sacrococcygeal disorder COMPARISON: None available. TECHNIQUE: Fluoroscopy time: 30 seconds DAP: 7.6 mGycm2 Images: 4 FINDINGS: Fluoroscopy provided for procedure. Needle is projected adjacent to the bilateral SI joints, with contrast injection. FL/FL guidance in treatment room IMPRESSION: Fluoroscopy provided for procedure. See procedure report for details. Electronically signed by: Anderson Castellanos MD 07/04/2025 03:37 PM [facility]
--- OUTSIDE RECORDS SUMMARY | 2025-07-03 06:27 | XMS_ITS | Data Portability ---
Author Organization [facility], [facility] Address [address] [place] [address] Care Team Providers Care Associate Biological Sales Name Role Phone MARIAH NORTH Primary Care [...] distally. X-rays ordered, obtained and reviewed at [facility]: 5 views of the right ankle and [...] condition, to please contact our office immediately. [email or web address] Not available 03/21/2025 12:13:09 Plan of Treatment Reminders Order Date Submit Date Provider Last Modified By Organization Details Last Modified Time Details Appointments None recorded. Lab None recorded. Referral None recorded. Procedures None recorded. Surgeries None recorded. Imaging XR, ankle + foot - ---3V FOOT WB, 2V ANKLE WB room 2 2024 025 [facility], [address] [facility] [address], [place], [address], 5 14:31:43 Medication Orders meloxicam 15 mg tablet 2024 025 [facility], [address] [facility], [place], [address], 5 09:55:20 Patient TargetsNo targets recorded. Patient InstructionsNo instructions recorded. Reason for Referral None Reported. Results Created Date Observation Date Name Description Value Unit Range Abnormal Flag Note LastModifiedBy Organization Detail LastModifiedTime 03/21/20 25 03/21/2025 XR, ankle + foot http:/ [email or web address] ?Encry pted=s hAaTro YD8dLq bEUv6g %2BXZw aYqtaq 0bqfl% 2Fg9IQ a4ajBk vP9nXo QUaueC m3YtLR FvZlgJ JJ8mAn HZtai3 5e8329 AC0Klb n6NUaS iKiQtr MwF INTERFACE [facility] Office [address] [facility] [address], [place], [address], 03/21/2025 09:26:05 03/21/20 25 03/21/2025 XR, ankle + foot http:/ [email or web address] ?Encry pted=s hAaTro YD8dLq bEUv6g %2BXZw aYqtaq 0bqfl% 2Fg9IQ a4ajBk vP9nXo QUaueC m3YtLR FvZl JJ8mAn HZtai3 9d0453 AC0Klb n6NUaS iKiQtr MwF INTERFACE [facility] [address], [address], 03/21/2025 09:26:07 Result Notes Documentation Provider Name and Address Organization Details Recorded Time Xr, Ankle + Foot : [email or web address] Encrypted=lfUxLjvIC8hGroM Uv6g%1SYUgcSgcun1tubw%2Fg 7YYa8laTmlT6pLsXZronIx6Xx PGIfTeuOGX4sMaLUffr74g159 3LG5Lchh8UFyJmZbXelJrA Not Available [facility] 03/21/2025 09:26: 06 Xr, Ankle + Foot : [email or web address] Encrypted=opWoRjhAD1oHzoU Uv6g%3ZUHctRaoyq0pavc%2Fg 4ZIm9lkXvyO8kPdMBpzbYs4Us YPNgFkyMAN4nVxUKart54y278 0VN1Vkaf4JExTzQyOofZxG Not Available [facility] 03/21/2025 09:26: 07 Problems Name Problem SNOMED Code Status Onset Date Resolution Date Notes Provider Name and Address Organization Details Recorded Time No complaints 674253208 Active Status : 'I'; Not Available [facility] 4 09:15:44 Pain in right foot 8626138650866 07 Active 2024 JESUS watters [place] - [facility] 5 09:04:59 Problem Notes None recorded. Medical Equipment None Reported. Allergies Allergen ID Allergen Name Allergen Category Reaction Reaction Severity Criticality Documentation Date Start Date Code Code System Note Provider Name and Address Organization Details Recorded Time 64977 Substance with sulfonami de structure and antibacte rial mechanism of action (substanc e) medicatio n Not available Not available Not available 10/25/20232009 38866 8003 SNOMED Aller gyRea ction : 'Skin React ion'; Not Available [facility] 4 13:40:21 74138 wheat gluten extract food Not available Not available Not available 10/25/20232009 41454 81 RxNorm Not Available [facility] 4 13:40:22 54520 codeine medicatio n Not available Not available Not available 10/25/20232022 2670 RxNorm Not Available [facility] 4 13:40:22 75156 Product containin g penicilli n (product) medicatio n Not available Not available Not available 10/25/20232022 82442 8001 SNOMED Not Available [facility] 4 13:40:22 Medications Name Sig [...] Updated DateTime 03/21/2025 160.02 cm 29.2 kg/m2 85549.74 g KAYLIA L'[facility] 03/21/2025 09:00:15 Social History Question Answer Notes LastModified by Organizat ion Details LastModified Time Tobacco Smoking Status Never Smoker [employer] [facility] 03/21/2025 09:02:42 What Is Your Relationship [...] History Nothing Reported. Medical History Condition Response Coronary Artery Disease N Anxiety/Depression N Emphysema N COPD N Pacemaker N Vascular Disease N Heart Trouble N Gastrointestinal Disease N Autoimmune disease N Inflammatory Joint disease N Orthotics N Arthritis N Blood Clot N Acid Reflux (GERD) N Cancer N Stroke N Circulation Problems N Rheumatoid Arthritis N Arrhythmia N Headaches N Fibromyalgia N Allergies/Hayfever N Breathing or lung disorders N Nerve Disorders N Thyroid Problems Y Kidney/Bladder Problems N Anemia N Heart Attack (MT) N Cholesterol N Diabetes N Bleeding Disorder N Seizures/Epilepsy N AIDS/HIV N Congestive Heart Failure (CHF) N Asthma N Peripheral Vascular Disease N Sleep Apnea N Hepatitis N Heart Disease N Pulmonary Embolism N Hypertension N Osteoporosis N Gynecological HistoryNo gynecological history recorded. Obstetrics History GPAL:G 0 P 0 0 0 0 Past Encounters Encounter ID Performer Location Encounter Start Date Encounter Closed Date Diagnosis/Indication Diagnosis SNOMED-CT Code Diagnosis ICD10 Code Diagnosis IMO Codes Diagnosis Note [id number] Villa Lowry PA-C [facility] [address] [place] [address] 03/21/2025 08:33:31 03/30/2025 14:31:43 Pain in right foot 0306945543 32619 M79.671 551971 Peroneal t endinitis of right lower limb 6018005522 49143 M76.71 [id number] I am prescribin g this patient oral [...] Name 05/21/2025 1 [facility] (EPO [id number] Yahaira Jaeger [id number] Yahaira Jaeger OBGyn Episode No OBEpisode recorded.
--- OUTSIDE RECORDS SUMMARY | 2025-07-03 06:27 | XMS_ITS | Encounter Summary ---
Author Organization [facility] Address [address] [place] [address] [place] [address] Phone Care Team Providers Care Bloom Conveyor Operator Name Role Phone Miguel Juan PA-C Primary Care Provider [phone] Encounter Details Date Type Department Care Team (Late st Contact Info) Description 06/01/2025 Orders Only [facility] Internal Medicine [address] [place] [address] Provider, MD Kristian [facility] [place] [address] Social History Tobacco Use Types Packs/Day Years [...] AM EST Office Visit [facility] Internal Medicine [address] [place] [address] Miguel Juan PA-C [address] [place] [address] [email or web address] documented as of this encounter Procedures Procedure Name Priority Date/Time Associated Diagnosis Comments OUTSIDE LAB Routine 05/30/2025 11:34 AM EDT documented in this encounter Results * Outside Lab (05/30/2025 11:34 AM EDT) us Historical Provider LAB BLOOD BKR ORDERABLES Final Result documented in this encounter Visit Diagnoses Not on filedocumented in this encounter Additional Health Concerns Assessment Noted Time PHQ-2 Depression Total Score: 0 01/23/20 12:24 PM EDT documented as of this encounter Care Teams Bloom Conveyor Operator Relationship Specialty Start Date End Date Miguel Juan PA-C [address] [place] [address] PCP - General Physician Division Traffic Superintendent 10/16/24 documented as of this encounter Additional Source Comments The information contained in this document represents components of the legal health record. It is not the complete legal health record.[facility]
--- OUTSIDE RECORDS SUMMARY | 2025-07-03 06:27 | XMS_ITS | Clinical Summary ---
Author Organization [facility] Address [address] [place] [address] Phone Care Team Providers Care Senior Ecologist Name Role Phone Miguel Juan PA-C Primary Care Provider [phone] Allergies Active Allergy Reactions Criticality Noted Date Comments Codeine Nausea and/or Vomiting 12/21/2017 Gluten Other (See Comments) 12/21/2017 Celiac: gets very sick per patient Oxycodone-Acetaminophen 07/04/2021 Penicillins Rash Low 12/21/2017 Sulfa (Sulfonamide Antibiotics) Rash Low 12/21/2017 Medications pramipexole (MIRAPEX) 1 MG tablet TAKE 1 TABLET (1 MG TOTAL) BY MOUTH NIGHTLY AT BEDTIME. 90 tablet 2 5 Active omeprazole (PRILOSEC) 20 MG capsuleIndications :Gastroesophageal reflux disease without esophagitis Take 1 capsule (20 mg total) by mouth 2 (two) times a day. 180 capsule 3 5 Active LORazepam (ATIVAN) 0.5 MG tabletIndications: Generalized anxiety disorder TAKE 1 TABLET (0.5 MG TOTAL) BY MOUTH 2 (TWO) TIMES A DAY NEEDED FOR ANXIETY. 14 tablet 5 Active atorvastatin (LIPITOR) 10 MG tablet Take 1 tablet (10 mg total) by mouth daily. 90 tablet 3 5 Active lidocaine (LIDODERM) 5 %Indications:Chron ic bilateral low back pain with left-sided sciatica Place 1 patch onto the skin 2 (two) times a day as needed (M54.42, G89.29). Remove & Discard patch within 12 hours or as directed by 30 patch 5 Active levothyroxine (SYNTHROID, LEVOTHROID) 75 MCG tabletIndications: Acquired hypothyroidism TAKE 1 TABLET (75 MCG TOTAL) BY MOUTH EVERY MORNING. 90 tablet 3 5 Active diclofenac sodium (VOLTAREN) 75 MG EC tablet Take 1 tablet (75 mg total) by mouth 2 (two) times a day. 28 tablet 5 Active diclofenac sodium (VOLTAREN) 75 MG EC tablet Take 1 tablet (75 mg total) by mouth 2 (two) times a day. 28 tablet 5 025 Discontin ued(Reord er) diclofenac sodium (VOLTAREN) 75 MG EC tablet Take 1 tablet (75 mg total) by mouth 2 (two) times a day. 28 tablet 5 025 Discontin ued(Reord er) Active Problems Problem Noted Date Diagnosed Date Acute right ankle pain 05/03/2025 Assessment & Plan (05/03/2025 9:50 AM EDT): Patient mentions that back in January she developed right ankle pain after walking down the stairs. She denies any trauma or history of popping sensation. She was seen at the [facility] x 2 and had undergone right [...] any relief. She was seen by at [facility] doubler operator who switched her out of the boot [...] -Patient has an appointment coming up with [facility] on 05/11 patient was advised to [...] she does have an appointment scheduled with [facility] on 05/11 for further evaluation. Of [...] without improvement on prednisone, will refer to [facility] per patient request. Also, given the [...] EDT): Patient underwent laboratory data done at [facility]. Her labs were discussed during her office visit. She is up-to-date on her colonoscopy, mammogram and Pap smear will be completed this coming fall at [facility]. Annual physical 1 year Migraine [...] up with neurology and referral placed to [facility] per patient request Urine frequency 12/14/2023 [...] back pain. She has been seen by [facility] with noted cortisone injections. She has been managing her pain with PT, ibuprofen, stretching, heat, and lidocaine patches. During her last visit in January, she asked to have her PMLA extended. Patient is a will be undergoing cortisone injections through [facility] in the upcoming weeks Assessment & Plan (03/13/2025 10:29 PM EDT): Chronic, unchanged, though symptoms are significantly impacting function today. Will make f/u with either [facility] or [facility] Assessment & Plan (01/25/2025 8:09 AM EDT): Patient follows closely with [facility] and has undergone cortisone [...] (04/14/2024 9:44 AM EDT): Continue follow-up with [facility] as she notes that she prefers their office over [facility]. Does note that previous injections were helpful for recent travel to [place]. Hypothyroidism 12/21/2017 Assessment & Plan (05/03/2025 7:53 [...] Encounters Date Type Department Care Team Description 06/22/2025 Refill [facility] Internal Medicine [address] [place] [address] Naila Madison CNP Medication Refill 06/20/2025 6:31 PM EDT - 06/20/2025 11:59 PM EDT Hospital Encounter [address] [address] Daniella Pink MD Discharge Disposition: Home or Self Care 06/07/2025 Procedure Pass [address] [address] 06/07/2025 Transcribe Orders Virtual Department [address] [place] [id number] Daniella Pink MD Chronic gout without tophus, unspecified cause, unspecified site (Primary Dx); Other chondrocalcinosis, unspecified site 06/06/2025 Orders Only [facility] Internal Medicine [address] [facility] [place] [address] Kristian Young MD 06/04/2025 Refill [facility] Internal Medicine [address] [facility] [place] [address] Miguel Juan PA-C Medication Refill 06/01/2025 Orders Only [facility] Internal Medicine [address] [facility] [place] [address] Kristian Young MD 05/28/2025 Refill [facility] Internal Medicine [address] [facility] [place] [address] Ami Hoffman, SENIOR UI UX DEVELOPER Medication Refill 05/14/2025 Orders Only [facility] Internal Medicine [address] [place] [address] Kristian Young MD 05/03/2025 8:00 AM EDT Office Visit [facility] Internal Medicine [address] [place] [address] Miguel Juan PA-C Mixed hyperlipidemia (Primary Dx); Acquired hypothyroidism; Chronic bilateral low back pain with left-sided sciatica; Olecranon bursitis of right elbow; Acute right ankle pain 04/03/2025 Orders Only [facility] Internal Medicine [address] [place] [address] Kristian Young MD 04/02/2025 Orders Only [facility] Internal Medicine [address] [place] [address] ProviderKristian MD from Last 3 Months Immunizations Immunization Administration [...] Description 08/09/2025 8:00 AM EST Office Visit [facility] Internal Medicine [address] [place] [address] Miguel Juan PA-C [address] [place] [address] Health Maintenance Due Date Last Done Comments COLOGUARD 2002 FIT TEST 2002 FOBT 2002 SIGMOIDOSCOPY 2002 VIRTUAL COLONOSCOPY 2002 COVID-19 VACCINE ( season) 2025 09/20/2020, 08/30/2020 TSH LEVEL 01/13/2026 01/13/2025, 12/22, 12/31/2023, Additional history exists DEPRESSION SCREENING 01/22/2026 01/22/2025 MAMMOGRAM 06/26/2027 06/26/2025, 11/2024, 08/19/2023, Additional history exists SCREENING FOR DIABETES 01/14/2028 , 08/19/2023, 01/08/2022, Additional history exists LIPID PANEL 01/13/2030 01/13/2025, 12/22, 01/13/2025, Additional history exists Adult Td,Tdap Booster 03/16/2030 03/16/2020 COLONOSCOPY 06/20/2031 06/20/2021, 06/20/2021 COLORECTAL CANCER SCREENING 06/20/2031 RSV VACCINE (1 - 1-dose 75+ series) 2032 PNEUMOCOCCAL VACCINES (50+ years) Completed 09/18/2022 ZOSTER VACCINES Completed 01/04/2023, 08/19/2022 INFLUENZA VACCINE Completed 05/03/2025, , 10/20/2023, Additional history exists SMOKING STATUS SCREENING (Once After 26 Yrs) Completed 05/03/2025 HEPATITIS C SCREENING Completed 05/30/2025 , 01/09/2022, 01/08/2022 OSTEOPOROSIS SCREENING INITIAL (ONE-TIME) Completed 06/26/2025, 08/19/2023 HEPATITIS A VACCINES Aged Out No long er eligible based on patient's age to complete this topic HIB VACCINES Aged Out No longer eligi ble based on patient's age to complete this topic IPV VACCINES Aged Out No longer eligi ble based on patient's age to complete this topic MENINGOCOCCAL VACCINES (ACWY) Aged Out No longer eligible based on patient's age to complete this topic MENINGOCOCCAL VACCINES (B) Aged Out N o longer eligible based on patient's age to complete this topic Medical Devices Not on file Procedures Procedure Name Priority Date/Time Associated Diagnosis Comments BD DXA MONITORING Routine 06/26/2025 8:5 3 AM EST Osteopenia BI MAMMOGRAM SCREENING (BILATERAL) Routine 06/26/2025 8:53 AM EST Breast cancer screening by mammogram CT ANKLE WITHOUT CONTRAST (RIGHT) Routine 06/20/2025 6:52 PM EDT Chronic gout without tophus, unspecified cause, unspecified site Other chondrocalcinosis, unspecified site OUTSIDE LAB Routine 05/30/2025 11:34 AM EDT OUTSIDE LAB Routine 05/30/2025 8:07 AM EDT OUTSIDE POTASSIUM LEVEL Routine 05/30/2025 OUTSIDE ALT LEVEL Routine 05/30/2025 OUTSIDE SERUM CREATININE LEVEL Routine 05/30/2025 OUTSIDE HEPATITIS C VIRUS SCREENING Routine 05/30/2025 OUTSIDE MR EXTREMITY LOWER REPORT ONLY Routine 05/10/2025 8:24 AM EDT OUTSIDE HDL Routine 01/13/2025 OUTSIDE GLUCOSE FASTING Routine 01/13/2025 OUTSIDE TSH LEVEL Routine 01/13/2025 COLONOSCOPY FOR RESULT ENTRY ONLY Routine 06/20/2021 from Last 3 Months or Most Recently Relevant to Health Maintenance Results * CT ANKLE WITHOUT CONTRAST (RIGHT) (06/20/2025 6:52 PM EDT) Anatomical Region Laterality Modality Ankle Right Computed Tomogra phy 06/22/2025 2:49 PM EDT Impressions 06/22/2025 2:58 PM EDT 1. No evidence of urate crystal deposition. 2. No evidence of acute fracture or malalignment. Moderate degenerative change of the navicular-medial cuneiform joint. 3. Thickening of the insertional Achilles tendon, may represent tendinosis. Narrative 06/22/2025 2:[address] ANKLE WITHOUT CONTRAST (RIGHT) Referring clinician's provided indication for this examination in Epic: Outside Radiology Order; gout TECHNIQUE: Multidetector-row CT of the ankle, without intravenous contrast using dose-modulation techniques. Images were reconstructed in the axial, coronal, and sagittal planes. Acquired dual-energy data was utilized for postprocessing. Color coded mapping of the foot and ankle was performed per the CT scan blow mold operator proprietary protocol. 3D images were created on an independent workstation and interpreted. COMPARISON: None FINDINGS: Dual energy findings: The post processed images are without evidence of urate crystal deposition. Quantitative analysis of volumetric urate crystal burden measures 0 cm3. Bones/joints: There is no evidence of acute fracture, subluxation, or dislocation. There is moderate degenerative change of the navicular-medial cuneiform joint. No erosive change is identified. There is minimal anterior distal tibial marginal osteophytosis. There are very small posterior and plantar calcaneal enthesophytes. There is a small os peroneum and a small os naviculare. There is a subcentimeter sclerotic focus within the calcaneus, likely representing a bone island. Soft tissues: The muscles demonstrate normal bulk and density. There is thickening of the insertional Achilles tendon. Procedure Note Cheyanne Little MD - 06/22/2025 CT ANKLE WITHOUT CONTRAST (RIGHT) Referring clinician's provided indication for this examination in Epic:Outside Radiology Order; gout TECHNIQUE: Multidetector-row CT of the ankle, without intravenous contrastusing dose-modulation techniques. Images were reconstructed in the axial,coronal, and sagittal planes. Acquired dual-energy data was utilized forpostprocessing. Color coded mapping of the foot and ankle was performedper the CT scan blow mold operator proprietary protocol. 3D images were createdon an independent workstation and interpreted. COMPARISON: None FINDINGS: Dual energy findings: The post processed images are without evidence ofurate crystal deposition. Quantitative analysis of volumetric uratecrystal burden measures 0 cm3. Bones/joints: There is no evidence of acute fracture, subluxation, ordislocation. There is moderate degenerative change of the navicular-medialcuneiform joint. No erosive change is identified. There is minimalanterior distal tibial marginal osteophytosis. There are very smallposterior and plantar calcaneal enthesophytes. There is a small osperoneum and a small os naviculare. There is a subcentimeter scleroticfocus within the calcaneus, likely representing a bone island. Soft tissues: The muscles demonstrate normal bulk and density. There isthickening of the insertional Achilles tendon. IMPRESSION: 1. No evidence of urate crystal deposition. 2. No evidence of acute fracture or malalignment. Moderate degenerativechange of the navicular-medial cuneiform joint. 3. Thickening of the insertional Achilles tendon, may representtendinosis. Result [facility] Daniella Pink MD IMG CT EXTREMIT Y Final Result * Outside Lab (05/30/2025 11:34 AM EDT) Only the most recent of2 resultswithin the time period is included. Result [facility] MD LAB BLOOD BKR ORDERABLES Final Result * Outside Hepatitis C Virus Screening (05/30/2025) Hepatitis C Screening - External Neg Result [facility] MD LAB BLOOD ORDERABLES Loren l Result * Outside Potassium Level (05/30/2025) Pathologist [facility] Potassium level - External 4.5 3.4 - 5.0 mmol/L Result [facility] MD LAB BLOOD ORDERABLES Loren l Result * Outside Serum Creatinine Level (05/30/2025) Creatinine, serum - External 0.88 0.8 - 1.3 mg/dL Result [facility] MD LAB BLOOD ORDERABLES Loren l Result * (ABNORMAL) Outside ALT Level (05/30/2025) ALT - External 31(A) 5 - 30 U/L Result [facility] MD LAB BLOOD ORDERABLES Loren l Result * Outside MR Extremity Lower report Only (05/10/2025 8:24 AM EDT) Result [facility] Provider IMG MR EXTREMITY Final Re sult * Outside TSH Level (01/13/2025) TSH - External 0.61 0.5 - 5 uIU/L Result [facility] Historical Provider LAB BLOOD ORDERABLES Loren l Result * Outside Glucose,Fasting (01/13/2025) Glucose, fasting - External 96 65 - 99 mg/dL Result [facility] Provider LAB BLOOD ORDERABLES Loren l Result * Outside HDL (01/13/2025) HDL - External 44 40 - 80 mg/dL Result [facility] Historical Provider LAB BLOOD ORDERABLES Loren l Result * HM MAMMOGRAPHY FOR RESULT ENTRY ONLY (08/26/2024 10:07 AM EST) Result [facility] Historical Provider HEALTH MAINTENANCE Edited Result - Final * DXA Screening (08/19/2023 10:27 AM EST) Anatomical Region Laterality Modality Bone Density Bone Density Rachna Bernard NP IMG BD BONE DENSITY DEXA Final Result * HM COLONOSCOPY FOR RESULT ENTRY ONLY (06/20/2021) Result [facility] Historical Provider HEALTH MAINTENANCE Edited Result - Final from Last 3 Months or Most Recently Relevant to Health Maintenance Insurance [employer] BLUE BENEFITS ADMINISTRATORS [employer]EF[employer]MINISTRAT[employer] BENEFITS ADMINISTRATORS Weplay BENEFITS ADMINISTRATORS Weplay BENEFITS ADMINISTRATORS Weplay BENEFITS ADMINISTRATORS [employer]play BENEFITS ADMINISTRATORS Weplay BENEFITS ADMINISTRATORS [employer] BENEFITS ADMINISTRATORS Care Teams Senior Ecologist Relationship Specialty Start Date End Date Miguel Juan PA-C [address] [place] [address] [email or web address] PCP - General Physician Treasurer 10/16/24 Additional Source Comments The information contained in this document represents components of the legal health record. It is not the complete legal health record.[facility]
--- OUTSIDE RECORDS SUMMARY | 2025-07-03 06:27 | XMS_ITS | Encounter Summary ---
Author Organization [facility] Address [address] [place] [address] [place] [address] Phone Care Team Providers Care Inspector Government Property Name Role Phone Rachna Bernard TEAROOM HOSTESS Primary Care Provider Ami Hoffman Primary Care Provider Miguel Juan PA-C Primary Care Provider [phone] Encounter Details Date Type Department Care Team (Late st Contact Info) Description 06/21/2023 Nurse Triage [facility] Internal Medicine [address] [place] [address] Rachna Bernard TEAROOM HOSTESS [address] [facility] [address] [place] [address] [email or web address] Social History Tobacco [...] high school, GED, job training, learning the [place] language, technical skills, or developing parenting skills)? [...] SOB Protocols used: CORONAVIRUS (COVID-19) DIAGNOSED OR MOTLMUIXO-HMIZO-IQ Nurse Triage Encounter Note Reason for Triage Yahaira Jeager contacted office for None Call Disposition Home Care Patient/caregiver understands and will follow disposition: Unsure Patient/caregiver understands and will follow care advice: Disposition Comments: Protocols used: Coronavirus (Covid-19) Diagnosed Or Citfbcval-Dxnaj-Jb Initial Symptom Screening and Assessment IA None [...] either acetaminophen or ibuprofen. * They are bdmr-diz-frvwqtk (OTC) drugs that help treat both fever [...] Description 08/09/2025 8:00 AM EST Office Visit [facility] Internal Medicine [address] [place] [address] Miguel Juan PA-C [address] [place] [address] [email or web address] documented as of this encounter Visit Diagnoses Not on filedocumented in this encounter Additional Health Concerns Infection Onset Date Last Indicated Resolved Time CoV-Risk 07/01/2024 07/01/2024 07/12/2024 1:21 AM EST Assessment Noted Time PHQ-2 Depression Total Score: 0 08/18/20 22 3:41 PM EST documented as of this encounter Care Teams Inspector Government Property Relationship Specialty Start Date End Date Rachna Bernard TEAROOM HOSTESS PCP - General Family Medicine 08/18/17 11/17/23 Ami Hoffman FNP [address] [address] PCP - General Nurse Practitioner 11/18/23 10/15/24 Miguel Juan PA-C [address] [place] [address] PCP - General Physician Cath Lab Manager 10/16/24 documented as of this encounter Additional Source Comments The information contained in this document represents components of the legal health record. It is not the complete legal health record.[facility]
--- OUTSIDE RECORDS SUMMARY | 2025-07-03 06:27 | XMS_ITS | Encounter Summary ---
Author Organization [facility] Address [address] [place] [address] [place] [address] Phone Care Team Providers Care Bank Analyst Name Role Phone Vimal Merino MD Unavailable Rosalio Galeana MD Unavailable Rachna Bernard NATIONAL PARK RANGER Unavailable [phone] Rachna Bernard NATIONAL PARK RANGER Primary Care Provider Ami Hoffman DRAGLINE MECHANIC Primary Care Provider [phone] Miguel Juan PA-C Primary Care Provider [phone] Encounter Details Date Type Department Care Team (Latest Contact Info) Description 02/17/2018 Transcribe Orders [facility] Phleb Main [address] [place], [place] [id number] Heath Moy MD [address] [place] [address], [address] [place], [place] [id number] [email or web address] MS (multiple sclerosis) (Primary Dx) Social [...] Description 08/09/2025 8:00 AM EST Office Visit [facility] Internal Medicine [address] [place] [address] Miguel Juan PA-C [address] [place] [address] [email or web address] documented as of this encounter Results * Miscellaneous lab test (02/17/2018 3:32 PM EDT) TESTS REQUESTED MYELIN OLIGODENDROCYTE GLYCOPROTEIN [facility] SPECIMEN/TUBE TYPE RED TOP [facility] REQUEST RECEIVED Request received. A separate order for the requested test will be generated by the laboratory. [facility] Blood 02/17/2018 3:32 PM EDT 02/17/2018 3:41 PM EDT us Heath Moy MD LAB BLOOD ORDERABLES Final R esult Performing Organization Address City/State/[facility] Co de Phone Number [facility] [address] [place] [address] documented in this encounter Visit Diagnoses Diagnosis [...] documented as of this encounter Care Teams Bank Analyst Relationship Specialty Start Date End Date Rachna Bernard NP [address] [place] [address] [address] [place] [address] PCP - General Family Medicine 08/18/17 11/17/23 Ami Hoffman FNP [address] [facility] [address] [place] [address] PCP - General Nurse Practitioner 11/18/23 10/15/24 Miguel Juan PA-C [address] [place] [address] PCP - General Physician Package Drier 10/16/24 Vimal Merino MD [address] [place] [address] Historical LMR Provider 06/08/17 12/07/19 Rosalio Galeana MD [address] [facility] 2[address] [place] [address] Historical LMR Provider 06/08/17 12/07/19 Rachna Bernard NP [address] [facility] [address] [place] [address] Historical LMR Provider 06/08/17 12/07/19 documented as of this encounter Additional Source Comments The information contained in this document represents components of the legal health record. It is not the complete legal health record.[facility]
--- OUTSIDE RECORDS SUMMARY | 2025-07-03 06:27 | XMS_ITS | Encounter Summary ---
Author Organization [facility] Address [address] [place] [address] [place] [address] Phone Care Team Providers Care Cutting Inspector Name Role Phone Miguel Juan PA-C Primary Care Provider [phone] Reason for Referral * MRI/CAT Scan - Closed Specialty Diagnoses / Procedures Referred By Elvira raya Referred To Contact Radiology Diagnoses Effusion, right ankle Pain in right ankle and joints of right foot Chronic gout, unspecified, without tophus (tophi) Other chondrocalcinosis, unspecified site Procedures CT Ankle (Right) Daniella Pink MD Phone: tel: fax: Referral ID Status Reason Start Date Expiration Date Visits Re quested Visits Authorized [id number] Closed 06/07/2025 06/07/2026 1 1 Encounter Details Date Type Department Care Team (Latest Contact Info) Description 06/07/2025 Transcribe Orders Virtual Department [address] [place] [address] Daniella Pink MD [address] [place] [address] Chronic gout without tophus, unspecified cause, unspecified [...] AM EST Office Visit [facility] Internal Medicine [address] [place] [address] Miguel Juan PA-C [address] [place] [address] [email or web address] documented as of this encounter Results * CT ANKLE WITHOUT CONTRAST (RIGHT) [...] ankle was performed per the CT scan lasting machine operator proprietary protocol. 3D images were created [...] and ankle was performedper the CT scan lasting machine operator proprietary protocol. 3D images were createdon [...] of the insertional Achilles tendon, may representtendinosis. Daniella Pink MD IMG CT EXTREMIT Y Final Result documented in this encounter Visit Diagnoses Diagnosis Chronic gout without tophus, unspecified cause, unspecified site- Primary Other chondrocalcinosis, unspecified site Chronic gout without tophus, unspecified cause, unspecified site Other chondrocalcinosis, unspecified site documented in this encounter Additional Health Concerns Assessment Noted Time PHQ-2 Depression Total Score: 0 01/23/20 25 12:24 PM EDT documented as of this encounter Care Teams Cutting Inspector Relationship Specialty Start Date End Date Miguel Juan PA-C [address] [place] [phone] [email or web address] PCP - General Physician Stock Chaser 10/16/24 documented as of this encounter Additional Source Comments The information contained in this document represents components of the legal health record. It is not the complete legal health record.[facility]
--- OUTSIDE RECORDS SUMMARY | 2025-07-03 06:27 | XMS_ITS | Encounter Summary ---
Author Organization [facility] Address [address] [place] [address] [place] [address] Phone Care Team Providers Care Retail Product Demo Specialist Name Role Phone Miguel Juan PA-C Primary Care Provider [phone] Encounter Details Date Type Department Care Team (Late st Contact Info) Description 06/06/2025 Orders Only [facility] Internal Medicine [address] [place] [address] Provider, MD Kristian [place] [address] Social History Tobacco Use Types Packs/Day Years [...] AM EST Office Visit [facility] Internal Medicine [address] [facility] [address] Miguel Juan PA-C [address] [place] [address] documented as of this encounter Procedures Procedure [...] documented as of this encounter Care Teams Retail Product Demo Specialist Relationship Specialty Start Date End Date Miguel Juan PA-C 40 [place] [address] PCP - General Physician Dry Wall Plasterer 10/16/24 documented as of this encounter Additional Source Comments The information contained in this document represents components of the legal health record. It is not the complete legal health record.[facility]
--- OUTSIDE RECORDS SUMMARY | 2025-07-03 06:27 | XMS_ITS | Encounter Summary ---
Author Organization [facility] Address [address] [place] [address] Phone Care Team Providers Care Communications Intern Name Role Phone Miguel Juan PA-C Primary Care Provider Encounter Details Date Type Department Care Team (Late st Contact Info) Description 06/07/2025 Procedure Pass [facility], Ct Scan - [facility] [address] [place] [address] Social History Tobacco Use Types Packs/Day Years [...] EST Office Visit [facility] [place] Internal Medicine 40 [place] [address] Miguel Juan PA-C 40 [place] [address] [email or web address] documented as of this encounter Visit Diagnoses Not on filedocumented in this encounter Additional Health Concerns Assessment Noted Time PHQ-2 Depression Total Score: 0 01/23/20 25 12:24 PM EDT documented as of this encounter Care Teams Communications Intern Relationship Specialty Start Date End Date Miguel Juan PA-C [address] [place] [address] [email or web address] PCP - General Physician Label Rewinder 10/16/24 documented as of this encounter Additional Source Comments The information contained in this document represents components of the legal health record. It is not the complete legal health record.[facility]
== END 2025-07-03 06:26 | disposition home or self-care (01) ==
LOC: CF 06:25
PROVIDERS: Visit Provider Anesthesiology
DX: M53.3 Sacrococcygeal disorders, not elsewhere classified (principal); M46.1 Sacroiliitis, not elsewhere classified
CPT/HCPCS: 27096; J2795; J3301; Q9967

== ENCOUNTER 2025-07-03 15:05 | Outpatient (AMB) | payer OTHER, SELFPAY ==
--- OUTSIDE RECORDS SUMMARY | 2020-03-16 08:25 | XMS_ITS | Encounter Summary ---
Author Organization [facility] Address [address] [employer] [facility] [address] [place] [address] Phone Care Team Providers Care Imager Name Role Phone Rachna Bernard FINGERPRINTER Primary Care Provider [phone] Encounter Details Date Type Department Care Team (Late st Contact Info) Description 03/16/2020 9:25 AM EDT Hospital Encounter [facility] [address] [place] [address] Varsha Britton, BEDSPREAD SEAMER [address] [place] [address] [email or web address] Social History Tobacco Use Types Packs/Day Years [...] EST Office Visit [facility] [place] [facility] [address] [place] [address] Miguel Juan PA-C 40 [place] [address] [email or web address] documented as of this encounter Procedures Procedure [...] AM EDT No significant bony abnormality. POS [id number] Narrative 03/16/2020 9:51 AM EDT Frontal and lateral views disclose no fracture, subluxation, or other significant abnormality involving the visualized regional skeletal structures. Procedure Note Jarad Goodrich MD - 03/16/2020 Frontal and lateral views disclose no fracture, subluxation, or othersignificant abnormality involving the visualized regional skeletalstructures. IMPRESSION: No significant bony abnormality. POS [id number] Varsha Britton BEDSPREAD SEAMER IMG XR UPPER EXTREMITY Final Result documented [...] documented as of this encounter Care Teams Imager Relationship Specialty Start Date End Date Rachna Bernard NP [email or web address] PCP - General Family Medicine 08/18/17 11/17/23 documented as of this encounter Additional Source Comments The information contained in this document represents components of the legal health record. It is not the complete legal health record.[facility]
--- NOTE | 2025-07-03 15:06 | A.OFFVIS_ITS ---
Vital Signs 07/03/25 15:09 07/03/25 15:38 Height 5 ft 3 in Weight 168 lb BMI 29.8 BP 126/77 125/67 Blood Pressure Location Lt brachial Lt brachial Position Sitting Sitting Respiration 16 16 Pulse 81 80 Pulse Source Pulse Oximeter Pulse Oximeter Pulse Oximetry (%) 100 100 Oxygen Delivery Method Room Air Room Air Intake Visit Reasons: Bilateral Therapeutic SIJ Injections Allergies gluten (Gluten) Allergy (Severe, Verified 06/12/25 08:00) Gastrointestinal Upset Penicillins Allergy (Intermediate, Verified 06/12/25 08:00) Rash Sulfa (Sulfonamide Antibiotics) Allergy (Intermediate, Verified 06/12/25 08:00) Rash Codeine Phosphate Allergy (Intermediate, Uncoded 03/15/25 07:01) Nausea [facility] Medical History (Updated 06/05/25 @ 16:43 by Shun Morrissey MD) Right ankle swelling Insertional tendinopathy of right Achilles tendon Chronic instability of ankle Sprain of calcaneofibular ligament of right ankle, initial encounter Sprain of anterior talofibular ligament of right ankle Right ankle sprain Transient neurological symptoms Hypersomnia Snoring Chest pain Crescendo angina Angina pectoris Hypothyroidism Low back pain COVID-19 vaccine series completed Anxiety GERD (gastroesophageal reflux disease) Celiac disease Restless leg syndrome Surgical History Hx of bilateral cataract extraction History of esophagogastroduodenoscopy (EGD) Hx of colonoscopy Hx of foot surgery Hx of tonsillectomy Hx of appendectomy History of back surgery Family History Daughter Celiac disease Social History Household Members: Children Household Members Other:: son age 17 Housing: House Are you a primary child care associate to a significant other at home: No Do you presently have visiting nurse or other home services: No Alcohol intake: current Alcohol intake frequency: holidays/special occasions only Patient Tobacco Use Status: Former Tobacco user Tobacco use type: Cigarette Advance Directives Date on File: 03/14/21 service: No Current occupational status: employed 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 the risks, benefits and alternatives were discussed with the patient and informed consent was obtained, patient was placed in the prone position and padded to foster comfort. Time out was performed delineating correct site and side of the procedure , name and of the patient, patient participated in time out procedure. The lower back and upper buttocks of the patient were prepped with ChloraPrep and draped with sterile self adhesive utility towels. C-arm was brought over the operating field and picture of the right SI joint was demonstrated on the screen. Tilting C-arm contralateral to the left the posterior silhouette of the sacroiliac joint was superimposed on anterior silhouette of the sacroiliac joint. The point slightly medial to the sacroiliac joint silhouette was inserted with 22 gauge 3-1/2 inch spinal needle, it was advanced through the sk in wheal and advanced toward the sacroiliac joint in tunnel vision fashion. When the needle entered the sacroiliac joint capsule injection of the contrast was performed delineating intra-articular and minimally periarticular spread of the contrast. After that injection of the treatment solution of ropivacaine 0.5% 5 cc mixed with Kenalog 40 mg into the joint was performed. After that the procedure was performed on the left sacroiliac joint in mirroring fashion. Total dose of Kenalog was 80 mg Upon completion of the injection needle was withdrawn sterile Band-Aid was applied. The patient tolerated the procedure well. Orders: Orders FL guidance in treatment room Today M53.3 - Sacrococcygeal disorders, not elsewhere classified Coding Level of Care Code Procedure Only Diagnoses Sacroiliac joint dysfunction of both sides M53.3 Sacroiliitis M46.1
[2025-07-03 15:09] VITALS: BP 126/77; PULSE 81; RESP 16; O2SAT 100; BMI 29.8
[2025-07-03 15:38] VITALS: BP 125/67; PULSE 80; RESP 16; O2SAT 100
--- OUTSIDE RECORDS SUMMARY | 2025-07-03 16:49 | XMS_ITS | Encounter Summary ---
Author Organization [facility] Address [address] [place] [address] [place] [address] Phone Care Team Providers Care Record Press Tender Name Role Phone Miguel Juan PA-C Primary Care Provider [phone] Encounter Details Date Type Department Care Team (Late st Contact Info) Description 06/06/2025 Orders Only [facility] Internal Medicine 40 [place] [address] Provider, MD Kristian [facility] [place] [address] Social History Tobacco Use Types Packs/Day Years [...] AM EST Office Visit [facility] Internal Medicine 40 [place] [address] Miguel Juan PA-C [address] [place] [address] documented as of this encounter Procedures Procedure [...] documented as of this encounter Care Teams Record Press Tender Relationship Specialty Start Date End Date Miguel Juan PA-C 40 [place] [address] PCP - General Physician Commercial Real Estate Assistant 10/16/24 documented as of this encounter Additional Source Comments The information contained in this document represents components of the legal health record. It is not the complete legal health record.[facility]
--- OUTSIDE RECORDS SUMMARY | 2025-07-03 16:49 | XMS_ITS | Encounter Summary ---
Author Organization [facility] Address [address] [place] [address] Phone Care Team Providers Care Truck Packer Name Role Phone Miguel Juan PA-C Primary Care Provider [phone] Encounter Details Date Type Department Care Team (Late st Contact Info) Description 06/07/2025 Procedure Pass [facility], Ct Scan - [facility] 30 [place] [address] Social History Tobacco Use Types Packs/Day Years [...] EST Office Visit [facility] [place] Internal Medicine 40 [place] [address] Miguel Juan PA-C 40 [place] [address] [email or web address] documented as of this encounter Visit Diagnoses Not on filedocumented in this encounter Additional Health Concerns Assessment Noted Time PHQ-2 Depression Total Score: 0 01/23/20 25 12:24 PM EDT documented as of this encounter Care Teams Truck Packer Relationship Specialty Start Date End Date Miguel Juan PA-C [address] [place] [address] [email or web address] PCP - General Physician Job Trainer 10/16/24 documented as of this encounter Additional Source Comments The information contained in this document represents components of the legal health record. It is not the complete legal health record.[facility]
--- OUTSIDE RECORDS SUMMARY | 2025-07-03 16:49 | XMS_ITS | Encounter Summary ---
Author Organization [facility] Address [address] [place] [address] [place] [address] Phone Care Team Providers Care Novelty Balloon Assembler And Packer Name Role Phone Miguel Juan PA-C Primary Care Provider [phone] Encounter Details Date Type Department Care Team (Late st Contact Info) Description 06/01/2025 Orders Only [facility] Internal Medicine 40 [place] [address] Provider, MD Kristian [facility] [place] [address] Social History Tobacco Use Types Packs/Day Years [...] AM EST Office Visit [facility] Internal Medicine 40 [facility] [place] [address] Miguel Juan PA-C 40 [place] [address] documented as of this encounter Procedures Procedure [...] documented as of this encounter Care Teams Novelty Balloon Assembler And Packer Relationship Specialty Start Date End Date Miguel Juan PA-C 40 [place] [address] [email or web address] PCP - General Physician Sustainability Consultant 10/16/24 documented as of this encounter Additional Source Comments The information contained in this document represents components of the legal health record. It is not the complete legal health record.[facility]
--- OUTSIDE RECORDS SUMMARY | 2025-07-03 16:50 | XMS_ITS | Encounter Summary ---
Author Organization [facility] Address [address] [place] [address] [place] [address] Phone Care Team Providers Care Laundromat Manager Name Role Phone Vimal Merino MD Unavailable Rosalio Galeana MD Unavailable Rachna Bernard POLICY CHECKER Unavailable [phone] Rachna Bernard POLICY CHECKER Primary Care Provider [phone] Ami Hoffman DIRECTOR ENTER[employer] SALES Primary Care Provider [phone] Miguel Juan PA-C Primary Care Provider [phone] Encounter Details Date Type Department Care Team (Latest Contact Info) Description 02/17/2018 Transcribe Orders [facility] [address] [place], [place] [id number] Heath Moy MD [address] [place] [address], [address] [place], [place] [id number] [email or web address] MS (multiple sclerosis) (Primary Dx) [...] Description 08/09/2025 8:00 AM EST Office Visit [facility] Internal Medicine 40 [place] [address] Miguel Juan PA-C [address] [place] [address] [email or web address] documented as of this encounter Results * Miscellaneous lab test (02/17/2018 3:32 PM EDT) TESTS REQUESTED MYELIN OLIGODENDROCYTE GLYCOPROTEIN [facility] SPECIMEN/TUBE TYPE RED TOP [facility] REQUEST RECEIVED Request received. A separate order for the requested test will be generated by the laboratory. [facility] Blood 02/17/2018 3:32 PM EDT 02/17/2018 3:41 PM EDT us Heath Moy MD LAB BLOOD ORDERABLES Final R esult Performing Organization Address City/State/[facility] Co de Phone Number [facility] [address] [place] [address] documented in this encounter Visit Diagnoses Diagnosis [...] documented as of this encounter Care Teams Laundromat Manager Relationship Specialty Start Date End Date Rachna Bernard NP [address] [place] [address] [address] [place] [address] PCP - General Family Medicine 08/18/17 11/17/23 Ami Hoffman FNP [address] [facility] [address] [place] [address] PCP - General Nurse Practitioner 11/18/23 10/15/24 Miguel Juan PA-C [address] [place] [address] [email or web address] PCP - General Physician Chief Solution Architect 10/16/24 Vimal Merino MD [address] [place] [address] Historical LMR Provider 06/08/17 12/07/19 Rosalio Galeana MD [address] [facility], [address]nd [place] [address] Historical LMR Provider 06/08/17 12/07/19 Rachna Bernard NP 26 [facility] 6 [place] [address] Historical LMR Provider 06/08/17 12/07/19 documented as of this encounter Additional Source Comments The information contained in this document represents components of the legal health record. It is not the complete legal health record.[facility]
--- OUTSIDE RECORDS SUMMARY | 2025-07-03 16:50 | XMS_ITS | Encounter Summary ---
Author Organization [facility] Address [address] [place] [address] [place] [address] Phone Care Team Providers Care Patient Carrier Name Role Phone Miguel Juan PA-C Primary Care Provider [phone] Reason for Referral * MRI/CAT Scan - [...] Expiration Date Visits Re quested Visits Authorized [id number] Closed 06/07/2025 06/07/2026 1 1 Encounter Details Date Type Department Care Team (Latest Contact Info) Description 06/07/2025 Transcribe Orders Virtual Department 30 [place] [address] Daniella Pink MD [address] [place] [address] Chronic gout without tophus, unspecified cause, unspecified [...] Description 08/09/2025 8:00 AM EST Office Visit [facility] Internal Medicine [address] [place] [address] Miguel Juan PA-C [address] [place] [address] [email or web address] documented as of this encounter Results * [...] ankle was performed per the CT scan report manager proprietary protocol. 3D images were created on [...] and ankle was performedper the CT scan report manager proprietary protocol. 3D images were createdon an [...] documented as of this encounter Care Teams Patient Carrier Relationship Specialty Start Date End Date Miguel Juan PA-C [address] [place] [address] [email or web address] PCP - General Physician Breaker Mechanic 10/16/24 documented as of this encounter Additional Source Comments The information contained in this document represents components of the legal health record. It is not the complete legal health record.[facility]
--- OUTSIDE RECORDS SUMMARY | 2025-07-03 16:50 | XMS_ITS | Encounter Summary ---
Author Organization [facility] Address [address] [place] [address] [place] [address] Phone Care Team Providers Care Ski Instructor Name Role Phone Rachna Bernard SEPARATOR TENDER Primary Care Provider Ami Hoffman Primary Care Provider Miguel Juan PA-C Primary Care Provider [phone] Encounter Details Date Type Department Care Team (Late st Contact Info) Description 06/21/2023 Nurse Triage [facility] Internal Medicine [address] [place] [address] Rachna Bernard SEPARATOR TENDER [address] [facility] [address] [place] [address] [email or web address] Social History Tobacco Use Types Packs/Day Years [...] high school, GED, job training, learning the Israeli language, technical skills, or developing parenting skills)? [...] SOB Protocols used: CORONAVIRUS (COVID-19) DIAGNOSED OR [id number] Nurse Triage Encounter Note Reason for Triage Yahaira Jaeger contacted office for None Call Disposition Home Care Patient/caregiver understands and will follow disposition: Unsure Patient/caregiver understands and will follow care advice: Disposition Comments: Protocols used: Coronavirus (Covid-19) Diagnosed Or Easvorqwe-Polxz-Co Initial Symptom Screening and Assessment IA None [...] either acetaminophen or ibuprofen. * They are gycy-mlu-rxogfpl (OTC) drugs that help treat both fever [...] Description 08/09/2025 8:00 AM EST Office Visit [facility] [place] Internal Medicine 40 [place] [address] Miguel Juan PA-C 40 [place] [address] [email or web address] documented as of this encounter Visit Diagnoses Not on filedocumented in this encounter Additional Health Concerns Infection Onset Date Last Indicated Resolved Time CoV-Risk 07/01/2024 07/01/2024 07/12/2024 1:21 AM EST Assessment Noted Time PHQ-2 Depression Total Score: 0 08/18/20 22 3:41 PM EST documented as of this encounter Care Teams Ski Instructor Relationship Specialty Start Date End Date Rachna Bernard SEPARATOR TENDER PCP - General Family Medicine 08/18/17 11/17/23 Ami Hoffman FNP [address] [address] PCP - General Nurse Practitioner 11/18/23 10/15/24 Miguel Juan PA-C 40 [place] [address] PCP - General Physician Sign Erector 10/16/24 documented as of this encounter Additional Source Comments The information contained in this document represents components of the legal health record. It is not the complete legal health record.[facility]
--- OUTSIDE RECORDS SUMMARY | 2025-07-03 16:50 | XMS_ITS | Clinical Summary ---
Author Organization [facility] Address [address] [place] [address] Phone Care Team Providers Care Profiling Machine Setup Operator Name Role Phone Miguel Juan PA-C Primary Care Provider [phone] Allergies Active Allergy Reactions Criticality Noted Date [...] popping sensation. She was seen at the [facility] x 2 and had undergone right [...] any relief. She was seen by at [place] detention officer who switched her out of the boot [...] -Patient has an appointment coming up with [facility] on 05/11 patient was advised to [...] she does have an appointment scheduled with [facility] on 05/11 for further evaluation. Of [...] without improvement on prednisone, will refer to [facility] per patient request. Also, given the [...] EDT): Patient underwent laboratory data done at [facility]. Her labs were discussed during her office visit. She is up-to-date on her colonoscopy, mammogram and Pap smear will be completed this coming fall at [facility]. Annual physical 1 year Migraine without [...] up with neurology and referral placed to [facility] per patient request Urine frequency [...] back pain. She has been seen by [facility] with noted cortisone injections. She has been managing her pain with PT, ibuprofen, stretching, heat, and lidocaine patches. During her last visit in January, she asked to have her PMLA extended. Patient is a will be undergoing cortisone injections through [facility] in the upcoming weeks Assessment & Plan (03/13/2025 10:29 PM EDT): Chronic, unchanged, though symptoms are significantly impacting function today. Will make f/u with either [facility] or [facility] Assessment & Plan (01/25/2025 8:09 AM EDT): Patient follows closely with [facility] and has undergone cortisone [...] (04/14/2024 9:44 AM EDT): Continue follow-up with [facility] as she notes that she prefers their office over [facility]. Does note that previous injections were helpful for recent travel to [place]. Hypothyroidism 12/21/2017 Assessment & Plan (05/03/2025 7:53 [...] Type Department Care Team Description 06/22/2025 Refill [facility] Internal Medicine 40 [place] [address] Naila Madison CNP Medication Refill 06/20/2025 6:31 PM EDT - 06/20/2025 11:59 PM EDT Hospital Encounter [address] [address] Daniella Pink MD Discharge Disposition: Home or Self Care 06/07/2025 Procedure Pass [address] [address] 06/07/2025 Transcribe Orders Virtual Department [address] [place] [address] Daniella Pink MD Chronic gout without tophus, unspecified cause, unspecified site (Primary Dx); Other chondrocalcinosis, unspecified site 06/06/2025 Orders Only [facility] Internal Medicine 40 [facility] [place] [address] Kristian Young MD 06/04/2025 Refill [facility] Internal Medicine [address] [facility] [place] [address] Miguel Juan PA-C Medication Refill 06/01/2025 Orders Only [facility] Internal Medicine 40 [facility] [place] [address] Kristian Young MD 05/28/2025 Refill [facility] Internal Medicine 40 [facility] [place] [address] Ami Hoffman, SURGICAL SERVICES ASSISTANT Medication Refill 05/14/2025 Orders Only [facility] Internal Medicine 40 [facility] [place] [address] Kristian Young MD 05/03/2025 8:00 AM EDT Office Visit [facility] Internal Medicine [address] [facility] [place] [address] Miguel Juan PA-C Mixed hyperlipidemia (Primary Dx); Acquired hypothyroidism; Chronic bilateral low back pain with left-sided sciatica; Olecranon bursitis of right elbow; Acute right ankle pain 04/03/2025 Orders Only [facility] Internal Medicine [address] [facility] [place] [address] Kristian Young MD 04/02/2025 Orders Only [facility] Internal Medicine 40 [facility] [place] [address] ProviderKristian MD from Last 3 Months Immunizations [...] you interested in more education? Not on niseha e 08/18/2024 Are you concerned about learning? [...] Description 08/09/2025 8:00 AM EST Office Visit [facility] Internal [facility] [address] [place] [address] Miguel Juan PA-C 40 [place] [address] [email or web address] Health Maintenance Due Date Last Done Comments [...] ankle was performed per the CT scan bilingual sales assistant proprietary protocol. 3D images were created on [...] and ankle was performedper the CT scan bilingual sales assistant proprietary protocol. 3D images were createdon an [...] the insertional Achilles tendon, may representtendinosis. Result [facility] Daniella Pink MD IMG CT EXTREMIT Y Final Result * Outside Lab (05/30/2025 11:34 AM EDT) Only the most recent of2 resultswithin the time period is included. Result [facility] MD LAB BLOOD BKR ORDERABLES Final Result * Outside Hepatitis C Virus Screening (05/30/2025) Hepatitis C Screening - External Neg Result [facility] MD LAB BLOOD ORDERABLES Loren l Result * Outside Potassium Level (05/30/2025) Pathologist [facility] Potassium level - External 4.5 3.4 - 5.0 mmol/L Result [facility] MD LAB BLOOD ORDERABLES Loren l Result * Outside Serum Creatinine Level (05/30/2025) Creatinine, serum - External 0.88 0.8 - 1.3 mg/dL Result [facility] MD LAB BLOOD ORDERABLES Loren l Result * (ABNORMAL) Outside ALT Level (05/30/2025) ALT - External 31(A) 5 - 30 U/L Result [facility] MD LAB BLOOD ORDERABLES Loren l Result * Outside MR Extremity Lower report Only (05/10/2025 8:24 AM EDT) Result [facility] Provider IMG MR EXTREMITY Final Re sult * Outside TSH Level (01/13/2025) TSH - External 0.61 0.5 - 5 uIU/L Result [facility] Historical Provider LAB BLOOD ORDERABLES Loren l Result * Outside Glucose,Fasting (01/13/2025) Glucose, fasting - External 96 65 - 99 mg/dL Result [facility] Provider LAB BLOOD ORDERABLES Loren l Result * Outside HDL (01/13/2025) HDL - External 44 40 - 80 mg/dL Result [facility] Historical Provider LAB BLOOD ORDERABLES Loren l Result * HM MAMMOGRAPHY FOR RESULT ENTRY ONLY (08/26/2024 10:07 AM EST) Result [facility] Historical Provider HEALTH MAINTENANCE Edited Result - Final * DXA Screening (08/19/2023 10:27 AM EST) Anatomical Region Laterality Modality Bone Density Bone Density Rachna Bernard NP IMG BD BONE DENSITY DEXA Final Result * HM COLONOSCOPY FOR RESULT ENTRY ONLY (06/20/2021) Result [facility] Historical Provider HEALTH MAINTENANCE Edited Result - Final from Last 3 Months or Most Recently Relevant to Health Maintenance Insurance [employer] BLUE BENEFITS ADMINISTRATORS [employer]EF[employer]MINISTRAT[employer] BENEFITS ADMINISTRATORS [place] BENEFITS ADMINISTRATORS [place] BENEFITS ADMINISTRATORS [place] BENEFITS ADMINISTRATORS [place] BENEFITS ADMINISTRATORS [place] BENEFITS ADMINISTRATORS [place] BENEFITS ADMINISTRATORS Care Teams Profiling Machine Setup Operator Relationship Specialty Start Date End Date Miguel Juan PA-C [address] [place] [address] [email or web address] PCP - General Physician Military Communications Specialist 10/16/24 Additional Source Comments The information contained in this document represents components of the legal health record. It is not the complete legal health record.[facility]
== END 2025-07-03 15:39 | disposition home or self-care (01) ==
LOC: HO.PMCPRC 15:05
PROVIDERS: PCP Physician Assistant Surgical; Visit Provider Anesthesiology
DX: M53.3 Sacrococcygeal disorders, not elsewhere classified (principal); M46.1 Sacroiliitis, not elsewhere classified
CPT/HCPCS: 27096

== ENCOUNTER 2025-07-09 07:34 | Outpatient (AMB) | payer OTHER, SELFPAY ==
--- OUTSIDE RECORDS SUMMARY | 2020-03-16 08:25 | XMS_ITS | Encounter Summary ---
Author Organization [facility] Address [address] [employer] [facility] [address] [place] [address] Phone Care Team Providers Care Egg Factory Worker Name Role Phone Rachna Bernard QUALITY CONTROL ENGINEER Primary Care Provider [phone] Encounter Details Date Type Department Care Team (Late st Contact Info) Description 03/16/2020 9:25 AM EDT Hospital Encounter [facility] [address] [place] [address] Varsha Britton, MANAGER FINE DINING [address] [place] [address] [email or web address] Social History Tobacco Use Types Packs/Day Years Used Date Smoking Tobacco: Former Cigarettes 0.3 21.6 1 980 - 03/23/2001 Passive Smoke Exposure: Never Smokeless Tobacco: Never Comments:quit 15-16 yrs ago Alcohol Use Standard Drinks/Week Comments Yes 0 (1 standard drink = 0.6 oz pur e alcohol) 1-2 drinks, monthly or less Child or Family Care Answer Date Record ed Do you have problems with on e of the following making it difficult for you to work, study, or receive health care? No 01/22/2025 Education Answer Date Recorded Are you interested in more education? Not on niesha e 08/18/2024 Are you concerned about learning? Not on file 08/18/2024 No 08/18/2024 No 08/18/2024 Food Answer Date Recorded Within the past 6 months we worried whether our food would run out before we got money to buy more. Never True 01/22/2025 Within the past 6 months the food we bought just didn't last and we didn't have enough money to get more. Never True Residential Stability Answer Date Recor ded What is your housing situation today? I have reynaldo ramírez 01/22/2025 How many times have you move d in the past 12 months? Zero (I did not move) 01/22/2025 Paying for Meds Answer Date Recorded Do you have trouble paying for medicines? No 01/22/2025 Paying Utility Bills Answer Date Record ed Do you have trouble paying your heating or elect ricity bill? No 01/22/2025 Transportation Answer Date Recorded Has the lack of transportati on kept you from medical appointments or from getting medications? No 01/22/2025 Unemployment Answer Date Recorded Are you currently unemployed or working on a part-time or temporary basis, and looking for work? No 08/18/2022 Digital Access Answer Date Recorded No 01/22/2025 Yes 01/22/2025 Do you have reliable internet access at home? Ye s 01/22/2025 Do you have a device (e.g., phone, tablet, computer) with a working camera? Yes 01/22/2025 Intimate Partner Violence Answer Date R ecorded Denied Basic Needs Not on file 10/19/2024 In the past 12 months have y ou been in a relationship with a person who hurts, threatens, or tries to control you? No 10/19/2024 Worried food would run out Not on file 10/19 In the past 12 months have y ou been in a relationship with a person who hurts, threatens, or tries to control you? No 10/19/2024 Comments No Sex and Gender Information Value Date Recorded Sex Assigned at Female 09/18/2022 9:05 AM EST Legal Sex Female 9:53 PM EDT Gender Identity Female 09/18/2022 9:05 AM EST Sexual Orientation Straight 09/18/2022 9: 05 AM EST documented as of this encounter Plan of Treatment Upcoming Encounters Date Type Department Care Team (Late st Contact Info) Description 08/09/2025 8:00 AM EST Office Visit [facility] [place] [facility] [address] [place] [address] Miguel Juan PA-C 40 [place] [address] [email or web address] documented as of this encounter Procedures Procedure Name Priority Date/Time Associated Diagnosis Comments XR FOREARM 2 VIEWS (RIGHT) Urgent/patient waiting 03/16/2020 9:43 AM EDT Blunt injury documented in this encounter Results * XR Forearm 2 Views (Right) (03/16/2020 9:43 AM EDT) Anatomical Region Laterality Modality Forearm Right Radiographic Candelaria ging 03/16/2020 9:51 AM EDT Impressions 03/16/2020 9:51 AM EDT No significant bony abnormality. POS [id number] Narrative 03/16/2020 9:51 AM EDT Frontal and lateral views disclose no fracture, subluxation, or other significant abnormality involving the visualized regional skeletal structures. Procedure Note Jarad Goodrich MD - 03/16/2020 Frontal and lateral views disclose no fracture, subluxation, or othersignificant abnormality involving the visualized regional skeletalstructures. IMPRESSION: No significant bony abnormality. POS [id number] Varsha Britton MANAGER FINE DINING IMG XR UPPER EXTREMITY Final Result documented in this encounter Visit Diagnoses Not on filedocumented in this encounter Additional Health Concerns Infection Onset Date Last Indicated Resolved Time CoV-Risk 05/28/2020 05/28/2020 06/11/2020 1:24 AM EDT CoV-Presumed 02/26/2022 02/26/2022 03/19/2022 1:21 AM EDT CoV-Risk 07/01/2024 07/01/2024 07/12/2024 1:21 AM EST Assessment Noted Time PHQ-2 Depression Total Score: 0 10/04/19 1:14 PM EST documented as of this encounter Care Teams Egg Factory Worker Relationship Specialty Start Date End Date Rachna Bernard NP [email or web address] PCP - General Family Medicine 08/18/17 11/17/23 documented as of this encounter Additional Source Comments The information contained in this document represents components of the legal health record. It is not the complete legal health record.[facility]
--- OUTSIDE RECORDS SUMMARY | 2025-07-09 07:51 | XMS_ITS | Encounter Summary ---
Author Organization [facility] Address [address] [facility] [address] [place] [address] Phone Care Team Providers Care Elementary [employer] Reading Teacher Name Role Phone Miguel Juan PA-C Primary Care Provider [phone] Encounter Details Date Type Department Care Team (Late st Contact Info) Description 06/07/2025 Procedure Pass [facility], Ct Scan - [facility] [address] [place] [address] Social History Tobacco Use Types Packs/Day Years [...] EST Office Visit [facility] 40 [place] [address] Miguel Juan PA-C 40 [place] [address] [email or web address] documented as of this encounter Visit Diagnoses Not on filedocumented in this encounter Additional Health Concerns Assessment Noted Time PHQ-2 Depression Total Score: 0 01/23/20 25 12:24 PM EDT documented as of this encounter Care Teams Elementary [employer] Reading Teacher Relationship Specialty Start Date End Date Miguel Juan PA-C [address] [place] [id number] [email or web address] PCP - General Physician Printer Machine 10/16/24 documented as of this encounter Additional Source Comments The information contained in this document represents components of the legal health record. It is not the complete legal health record.[facility]
--- OUTSIDE RECORDS SUMMARY | 2025-07-09 07:51 | XMS_ITS | Encounter Summary ---
Author Organization [facility] Address [address] [place] [address] [place] [address] Phone Care Team Providers Care Senior Cytogenetic Technologist Name Role Phone Miguel Juan PA-C Primary Care Provider [phone] Encounter Details Date Type Department Care Team (Late st Contact Info) Description 06/06/2025 Orders Only [facility] Internal Medicine 40 [place] [address] Provider, MD [facility] [place] [address] Social History Tobacco Use Types Packs/Day Years [...] AM EST Office Visit [facility] Internal Medicine 40 [place] [address] Miguel Juan PA-C [address] [place] [address] documented as of this encounter Procedures Procedure [...] documented as of this encounter Care Teams Senior Cytogenetic Technologist Relationship Specialty Start Date End Date Miguel Juan PA-C 40 [place] [address] PCP - General Physician [place] Operator 10/16/24 documented as of this encounter Additional Source Comments The information contained in this document represents components of the legal health record. It is not the complete legal health record.[facility]
--- OUTSIDE RECORDS SUMMARY | 2025-07-09 07:52 | XMS_ITS | Encounter Summary ---
Author Organization [facility] Address [address] [place] [address] [place] [address] Phone Care Team Providers Care Pallet Assembler Name Role Phone Rachna Bernard EMERGENCY ROOM DOCTOR Primary Care Provider Ami Hoffman Primary Care Provider Miguel Juan PA-C Primary Care Provider [phone] Encounter Details Date Type Department Care Team (Late st Contact Info) Description 06/21/2023 Nurse Triage [facility] Internal Medicine [address] [place] [address] Rachna Bernard EMERGENCY ROOM DOCTOR [address] [place] [address] [email or web address] Social History Tobacco [...] high school, GED, job training, learning the Syrian language, technical skills, or developing parenting skills)? [...] SOB Protocols used: CORONAVIRUS (COVID-19) DIAGNOSED OR [id number] Nurse Triage Encounter Note Reason for Triage Yahaira Jaeger contacted office for None Call Disposition Home Care Patient/caregiver understands and will follow disposition: Unsure Patient/caregiver understands and will follow care advice: Disposition Comments: Protocols used: Coronavirus (Covid-19) Diagnosed Or Bgctxhjee-Srvlz-Ll Initial Symptom Screening and Assessment IA None [...] either acetaminophen or ibuprofen. * They are arhg-mgx-gzkbnaj (OTC) drugs that help treat both fever [...] Description 08/09/2025 8:00 AM EST Office Visit [facility] Internal Medicine 40 [place] [address] Miguel Juan PA-C 40 [place] [address] [email or web address] documented as of this encounter Visit Diagnoses Not on filedocumented in this encounter Additional Health Concerns Infection Onset Date Last Indicated Resolved Time CoV-Risk 07/01/2024 07/01/2024 07/12/2024 1:21 AM EST Assessment Noted Time PHQ-2 Depression Total Score: 0 08/18/20 22 3:41 PM EST documented as of this encounter Care Teams Pallet Assembler Relationship Specialty Start Date End Date Rachna Bernard EMERGENCY ROOM DOCTOR PCP - General Family Medicine 08/18/17 11/17/23 Ami Hoffman FNP [address] [address] PCP - General Nurse Practitioner 11/18/23 10/15/24 Miguel Juan PA-C [address] [place] [address] PCP - General Physician Retoucher Photoengraving 10/16/24 documented as of this encounter Additional Source Comments The information contained in this document represents components of the legal health record. It is not the complete legal health record.[facility]
--- OUTSIDE RECORDS SUMMARY | 2025-07-09 07:52 | XMS_ITS | Encounter Summary ---
Author Organization [facility] Address [address] [place] [address] [place] [address] Phone Care Team Providers Care Carpenter Wooden Tank Erecting Name Role Phone Vimal Merino MD Unavailable [phone] Rosalio Galeana MD Unavailable Rachna Bernard TELEPHONE INFORMATION SUPERVISOR Unavailable [phone] Rachna Bernard TELEPHONE INFORMATION SUPERVISOR Primary Care Provider Ami Hoffman OYSTER BUYER Primary Care Provider Miguel Juan PA-C Primary Care Provider [phone] Encounter Details Date Type Department Care Team (Latest Contact Info) Description 02/17/2018 Transcribe Orders [facility] Main [address] [place], [place] [id number] Heath Moy MD [address] [place] [address], [address] [place], [place] [id number] [email or web address] MS (multiple sclerosis) (Primary Dx) Social [...] Description 08/09/2025 8:00 AM EST Office Visit [facility] Internal Medicine 40 [place] [address] Miguel Juan PA-C 40 [place] [address] [email or web address] documented as of this encounter Results * Miscellaneous lab test (02/17/2018 3:32 PM EDT) TESTS REQUESTED MYELIN OLIGODENDROCYTE GLYCOPROTEIN [facility] SPECIMEN/TUBE TYPE RED TOP [facility] REQUEST RECEIVED Request received. A separate order for the requested test will be generated by the laboratory. [facility] Blood 02/17/2018 3:32 PM EDT 02/17/2018 3:41 PM EDT us Heath Moy MD LAB BLOOD ORDERABLES Final R esult Performing Organization Address City/State/[facility] Co de Phone Number [facility] [address] [place] [address] documented in this encounter Visit Diagnoses Diagnosis [...] documented as of this encounter Care Teams Carpenter Wooden Tank Erecting Relationship Specialty Start Date End Date Rachna Bernard NP [address] [place] [address] [address] [place] [address] PCP - General Family Medicine 08/18/17 11/17/23 Ami Hoffman FNP [address] [facility] [address] [place] [address] PCP - General Nurse Practitioner 11/18/23 10/15/24 Miguel Juan PA-C 40 [place] [address] PCP - General Physician Artificial Marble Worker 10/16/24 Vimal Merino MD 40 [place] [address] Historical LMR Provider 06/08/17 12/07/19 Rosalio Galeana MD [address] [facility]nd [place] [address] Historical LMR Provider 06/08/17 12/07/19 Rachna Bernard NP [address] [facility] 6 [place] [address] Historical LMR Provider 06/08/17 12/07/19 documented as of this encounter Additional Source Comments The information contained in this document represents components of the legal health record. It is not the complete legal health record.[facility]
--- OUTSIDE RECORDS SUMMARY | 2025-07-09 07:52 | XMS_ITS | Encounter Summary ---
Author Organization [facility] Address [address] [place] [address] [place] [address] Phone Care Team Providers Care Icu Staff Nurse Name Role Phone Miguel Juan PA-C Primary Care Provider [phone] Reason for Referral * MRI/CAT Scan - [...] Expiration Date Visits Re quested Visits Authorized [id number] Closed 06/07/2025 06/07/2026 1 1 Encounter Details Date Type Department Care Team (Latest Contact Info) Description 06/07/2025 Transcribe Orders Virtual Department [address] [place] [address] Daniella Pink MD [address] [place] [address] Chronic gout without tophus, unspecified cause, unspecified [...] Description 08/09/2025 8:00 AM EST Office Visit [facility] Internal Medicine 40 [place] [address] Miguel Juan PA-C 40 [place] [address] [email or web address] documented as of this encounter Results * [...] ankle was performed per the CT scan mail order sorter proprietary protocol. 3D images were created on [...] and ankle was performedper the CT scan mail order sorter proprietary protocol. 3D images were createdon an [...] documented as of this encounter Care Teams Icu Staff Nurse Relationship Specialty Start Date End Date Miguel Juan PA-C [address] [place] [address] [email or web address] PCP - General Physician Account Assistant 10/16/24 documented as of this encounter Additional Source Comments The information contained in this document represents components of the legal health record. It is not the complete legal health record.[facility]
--- OUTSIDE RECORDS SUMMARY | 2025-07-09 07:52 | XMS_ITS | Clinical Summary ---
Author Organization [facility] Address [address] [place] [address] Phone Care Team Providers Care Senior Payroll Specialist Name Role Phone Miguel Juan PA-C Primary Care Provider [phone] Allergies Active Allergy Reactions Criticality Noted Date [...] popping sensation. She was seen at the [facility] x 2 and had undergone right [...] any relief. She was seen by at [facility] measurement technician who switched her out of the [...] -Patient has an appointment coming up with [facility] on 05/11 patient was advised to [...] she does have an appointment scheduled with [facility] on 05/11 for further evaluation. Of [...] without improvement on prednisone, will refer to [facility] per patient request. Also, given the [...] EDT): Patient underwent laboratory data done at [facility]. Her labs were discussed during her office [...] up with neurology and referral placed to [facility] per patient request Urine frequency 12/14/2023 Assessment [...] back pain. She has been seen by [facility] with noted cortisone injections. She has been managing her pain with PT, ibuprofen, stretching, heat, and lidocaine patches. During her last visit in January, she asked to have her PMLA extended. Patient is a will be undergoing cortisone injections through [facility] in the upcoming weeks Assessment & Plan (03/13/2025 10:29 PM EDT): Chronic, unchanged, though symptoms are significantly impacting function today. Will make f/u with either [facility] or [facility] Assessment & Plan (01/25/2025 8:09 AM EDT): Patient follows closely with [facility] and has undergone cortisone [...] (04/14/2024 9:44 AM EDT): Continue follow-up with [facility] as she notes that she prefers their office over [facility]. Does note that previous injections were helpful for recent travel to [place]. Hypothyroidism 12/21/2017 Assessment & Plan (05/03/2025 7:53 [...] Type Department Care Team Description 06/22/2025 Refill [facility] [address] [place] [address] Naila Madison CNP Medication Refill 06/20/2025 6:31 PM EDT - 06/20/2025 11:59 PM EDT Hospital Encounter [address] [address] Daniella Pink MD Discharge Disposition: Home or Self Care 06/07/2025 Procedure Pass [address] [address] 06/07/2025 Transcribe Orders Virtual Department [address] [place] [address] Daniella Pink MD Chronic gout without tophus, unspecified cause, unspecified site (Primary Dx); Other chondrocalcinosis, unspecified site 06/06/2025 Orders Only [facility] [address] [place] [address] Kristian Young MD 06/04/2025 Refill [facility] [address] [place] [address] Miguel Juan PA-C Medication Refill 06/01/2025 Orders Only [facility] [address] [place] [address] Kristian Young MD 05/28/2025 Refill [facility] [address] [place] [address] Ami Hoffman FNP Medication Refill 05/14/2025 Orders Only [facility] [address] [place] [address] ProviderKristian MD 05/03/2025 8:00 AM EDT Office Visit [facility] [address] [place] [address] Miguel Juan PA-C Mixed hyperlipidemia (Primary Dx); Acquired hypothyroidism; Chronic bilateral low back pain with left-sided sciatica; Olecranon bursitis of right elbow; Acute right ankle pain from Last 3 Months Immunizations Immunization Administration [...] Description 08/09/2025 8:00 AM EST Office Visit [facility] [address] [place] [address] Miguel Juan PA-C [address] [place] [address] [email or web address] Health Maintenance Due Date Last Done Comments COLOGUARD 2002 FIT TEST 2002 FOBT 2002 SIGMOIDOSCOPY 2002 VIRTUAL COLONOSCOPY 2002 COVID-19 VACCINE ( season) 2025 09/20/2020, 08/30/2020 TSH LEVEL 01/13/2026 01/13/2025, 12/22, 12/31/2023, Additional history exists DEPRESSION SCREENING 01/22/2026 01/22/2025 MAMMOGRAM 06/26/2027 06/26/2025, 010 11/2024, 08/19/2023, Additional history exists SCREENING FOR [...] ankle was performed per the CT scan performance improvement analyst proprietary protocol. 3D images were created on [...] and ankle was performedper the CT scan performance improvement analyst proprietary protocol. 3D images were createdon an [...] resultswithin the time period is included. Result [facility] Provider LAB BLOOD BKR ORDERABLES Final Result * Outside Hepatitis C Virus Screening (05/30/2025) Pathologist [facility] Hepatitis C Screening - External Neg Result [facility] MD LAB BLOOD ORDERABLES Loren l Result * Outside Potassium Level (05/30/2025) Pathologist [facility] Potassium level - External 4.5 3.4 - 5.0 mmol/L Result [facility] LAB BLOOD ORDERABLES Loren l Result * Outside Serum Creatinine Level (05/30/2025) Pathologist [facility] Creatinine, serum - External 0.88 0.8 - 1.3 mg/dL Result [facility] LAB BLOOD ORDERABLES Loren l Result * (ABNORMAL) Outside ALT Level (05/30/2025) [facility] ALT - External 31(A) 5 - 30 U/L Result [facility] LAB BLOOD ORDERABLES Loren l Result * Outside MR Extremity Lower report Only (05/10/2025 8:24 AM EDT) Result [facility] Provider IMG MR EXTREMITY Final Re sult * Outside TSH Level (01/13/2025) [facility] TSH - External 0.61 0.5 - 5 uIU/L Result [facility] LAB BLOOD ORDERABLES Loren l Result * Outside Glucose,Fasting (01/13/2025) Pathologist [facility] Glucose, fasting - External 96 65 - 99 mg/dL Result [facility] LAB BLOOD ORDERABLES Loren l Result * Outside HDL (01/13/2025) [facility] HDL - External 44 40 - 80 mg/dL Historical Provider LAB BLOOD ORDERABLES Loren l Result * HM MAMMOGRAPHY FOR RESULT ENTRY ONLY (08/26/2024 10:07 AM EST) Result [facility] Historical Provider HEALTH MAINTENANCE Edited Result - Final * DXA Screening (08/19/2023 10:27 AM EST) Anatomical Region Laterality Modality Bone Density Bone Density Rachna Bernard BULLDOZER PRESS OPERATOR IMG BD BONE DENSITY DEXA Final Result * HM COLONOSCOPY FOR RESULT ENTRY ONLY (06/20/2021) Historical Provider HEALTH MAINTENANCE Edited Result - Final from Last 3 Months or Most Recently Relevant to Health Maintenance Insurance ([place]) [address] [id number] [employer] B[employer] SURRY MRI Interventions [employer]ENEFITS ADMINISTRATORS SURRY MRI Interventions BENEFITS ADMINISTRATORS [employer] [place] [address] [employer] Care Teams Senior Payroll Specialist Relationship Specialty Start Date End Date Miguel Juan PA-C [address] [place] [address] @[email or web address] PCP - General Physician Search Analyst 10/16/24 Additional Source Comments The information contained in this document represents components of the legal health record. It is not the complete legal health record.[facility]
--- OUTSIDE RECORDS SUMMARY | 2025-07-09 07:52 | XMS_ITS | Data Portability ---
Author Organization [facility] Address [address] [place] [address] Care Team Providers Care Senior Cytogenetic Technologist Name Role Phone MARIAH NORTH Primary Care Provider [phone] Assessment Encounter Date Assessment Date Assessment LastModified [...] distally. X-rays ordered, obtained and reviewed at [facility]: 5 views of the right ankle [...] condition, to please contact our office immediately. [email or web address] Not available 03/21/2025 12:13:09 Plan of Treatment Reminders Order Date Submit Date Provider Last Modified By Organization Details Last Modified Time Details Appointments None recorded. Lab None recorded. Referral None recorded. Procedures None recorded. Surgeries None recorded. Imaging XR, ankle + foot - ---3V FOOT WB, 2V ANKLE WB room 2 2024 025 [facility] [address] [facility] [address], [place], [address], 5 14:31:43 Medication Orders meloxicam 15 mg tablet 2024 025 [facility], [address] [facility], [place], [address], 5 09:55:20 Patient TargetsNo targets recorded. Patient InstructionsNo instructions recorded. Reason for Referral None Reported. Results Created Date Observation Date Name Description Value Unit Range Abnormal Flag Note LastModifiedBy Organization Detail LastModifiedTime 03/21/20 25 03/21/2025 XR, ankle + foot http:/ [email or web address] ?Encry pted=s hAaTro YD8dLq bEUv6g %2BXZw aYqtaq 0bqfl% 2Fg9IQ a4ajBk vP9nXo QUaueC m3YtLR FvZlgJ JJ8mAn HZtai3 5v4136 AC0Klb n6NUaS iKiQtr MwF INTERFACE [facility] Office [address] [facility] [address], [place], [address], 03/21/2025 09:26:05 03/21/20 25 03/21/2025 XR, ankle + foot http:/ [email or web address] ?Encry pted=s hAaTro YD8dLq bEUv6g %2BXZw aYqtaq 0bqfl% 2Fg9IQ a4ajBk vP9nXo QUaueC m3YtLR FvZl JJ8mAn HZtai3 9a8326 AC0Klb n6NUaS iKiQtr MwF INTERFACE [facility] [address], [address], 03/21/2025 09:26:07 Result Notes Documentation Provider Name and Address Organization Details Recorded Time Xr, Ankle + Foot : [email or web address] Encrypted=feZhSiqRQ6sEdgY Uv6g%7EEGagEftjc9sfdd%2Fg 1PSp3tpEhyG0tCsQKnzkQs9Cv WCYpChvYNG6xIaEVcop35o176 8UR4Eeeh4GQkXcRlXwrCrX Not Available [facility] 03/21/2025 09:26: 06 Xr, Ankle + Foot : [email or web address] Encrypted=etSzHjiQE5yXatB Uv6g%8EYJqlJdvwv6hqlr%2Fg 7AZr2dgCsdN7qToOZubvMf0Ts DAQfEanOVN9oUkPUuii82t097 6QY7Lppu9BAhNaTwHigKrI Not Available [facility] 03/21/2025 09:26: 07 Problems Name Problem SNOMED Code Status Onset Date Resolution Date Notes Provider Name and Address Organization Details Recorded Time No complaints 869864438 Active Status : 'I'; Not Available [facility] 4 09:15:44 Pain in right foot 9559127463499 07 Active 2024 JESUS watters [place] - [facility] 5 09:04:59 Problem Notes None recorded. Medical Equipment None Reported. Allergies Allergen ID Allergen Name Allergen Category Reaction Reaction Severity Criticality Documentation Date Start Date Code Code System Note Provider Name and Address Organization Details Recorded Time 32209 Substance with sulfonami de structure and antibacte rial mechanism of action (substanc e) medicatio n Not available Not available Not available 10/25/20232009 34918 8003 SNOMED Aller gyRea ction : 'Skin React ion'; Not Available [facility] 4 13:40:21 33803 wheat gluten extract food Not available Not available Not available 10/25/20232009 09322 81 RxNorm Not Available [facility] 4 13:40:22 39125 codeine medicatio n Not available Not available Not available 10/25/20232022 2670 RxNorm Not Available [facility] 4 13:40:22 44707 Product containin g penicilli n (product) medicatio n Not available Not available Not available 10/25/20232022 29803 8001 SNOMED Not Available [facility] 4 13:40:22 Medications Name Sig Start Date [...] Updated DateTime 03/21/2025 160.02 cm 29.2 kg/m2 41595.74 g KAYLIA L'HEUREUX [facility] 03/21/2025 09:00:15 Social History Question Answer Notes LastModified by [email or web address] ion Details LastModified Time Tobacco Smoking Status Never Smoker KAJODIE L'HEUREUX [facility] 03/21/2025 09:02:42 What Is Your Relationship [...] Disease N Heart Trouble N Heart Attack (DE) N Gastrointestinal Disease N Cholesterol N Diabetes [...] ICD10 Code Diagnosis IMO Codes Diagnosis Note [id number] [place] Lowry PA-C [facility] - [facility] [address] [place] [address] 03/21/2025 08:33:31 03/30/2025 14:31:43 Pain in right foot 2810115811 99209 M79.671 [id number] Peroneal t endinitis of right lower limb 1164732641 15969 M76.71 [id number] I am prescribin g this patient oral [...] Name 05/21/2025 1 [employer] [place] [facility] (EPO [id number] Yahaira Jaeger [id number] 197 Yahaira Jaeger OBGyn Episode No OBEpisode recorded.
[2025-07-09 07:59] VITALS: BMI 29.8
--- NOTE | 2025-07-09 07:59 | MHC.OFFVIS ---
Vital Signs 07/09/25 07:59 Height 5 ft 3 in Weight 168 lb BMI 29.8 Intake Visit Reasons: Review CT results Intake Note: Yahaira is a 70 year old female who presents today for a follow up on her right ankle pain. At her last visit she was provided with an ankle brace. Patient was informed to continue with PT sessions to improve her strength and range of motion in the ankle. She was also advised to utilize Lidocaine patches and Diclofenac medication for pain management and to continue performing the RICE protocol. CT scan was ordered and results are scanned into patients chart. Patient reports she is still attending PT however last week she was told to hold off due to being in immense pain. She states she has seen slight improvement since her last visit. Allergies gluten (Gluten) Allergy (Severe, Verified 07/09/25 08:00) Gastrointestinal Upset Penicillins Allergy (Intermediate, Verified 07/09/25 08:00) Rash Sulfa (Sulfonamide Antibiotics) Allergy (Intermediate, Verified 07/09/25 08:00) Rash Codeine Phosphate Allergy (Intermediate, Uncoded 03/15/25 07:01) Nausea HPI Comments Details: The patient is a 70-year-old female presenting for follow-up of right chronic ankle instability. The patient states her pain has slightly improved but recently she had to cancel her physical therapy appointment due to increased burning sensation and swelling to the right ankle. Patient states she has been using lidocaine patches, lace-up stabilizing ankle brace, and has been taking diclofenac or ibuprofen with minimal relief. Patient recently had a CT scan done in would like to discuss results. The patient reports that driving exacerbates the inflammation and pain, leading to burning sensations. She denies any new pedal injuries. She denies any other pedal concerns. 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 instability of ankle Sprain of calcaneofibular ligament of right ankle, initial encounter Sprain of anterior talofibular ligament of right ankle Right ankle sprain Transient neurological symptoms Hypersomnia Snoring Chest pain Crescendo angina Angina pectoris Hypothyroidism Low back pain COVID-19 vaccine series completed Anxiety GERD (gastroesophageal reflux disease) Celiac disease Restless leg syndrome Surgical History Hx of bilateral cataract extraction History of esophagogastroduodenoscopy (EGD) Hx of colonoscopy Hx of foot surgery Hx of tonsillectomy Hx of appendectomy History of back surgery Family History Daughter Celiac disease Social History Household Members: Children Household Members Other:: son age 17 Housing: House Are you a primary child day care teacher to a significant other at home: No Do you presently have visiting nurse or other home services: No Alcohol intake: current Alcohol intake frequency: holidays/special occasions only Patient Tobacco Use Status: Former Tobacco user Tobacco use type: Cigarette Advance Directives Date on File: 03/14/21 service: No Current occupational status: employed 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 All systems reviewed & are unremarkable except as noted in HPI and below Physical Exam Vital Signs: BMI result Body Mass Index 29.8 Extrem Other: Right lower extremity focused exam: Derm: No open wounds, lesions, abrasions noted. Skin turgor supple and intact. Minimal edema noted to the lateral aspect of the ankle. No ecchymosis or discoloration noted. No clinical signs of infection. No maceration noted. Leukonychia noted to toenails x10. Vasc: DP/PT pulses palpable. Cap refill time less than 3 seconds. Varicosities noted. Temperature gradient warm to warm. Pedal hair absent. Neuro: Protective sensation is grossly intact. Musculoskeletal: Pain on palpation to the right ankle along the lateral aspect of the ankle in the area of the lateral gutter and ATFL. Pain on palpation to the Achilles tendon insertional point and distal aspect of the Achilles. Pain on palpation to the lateral aspect of the ankle along the course of the peroneal tendons. No pain on palpation to the area of the CFL. No pain on palpation to the deltoid. Pain with ankle range of motion, mostly plantarflexion, dorsiflexion, and eversion. Muscle manual testing 4/5. Positive anterior drawer test. No crepitus noted. Office Procedures AMB Joint Injection/Aspir Pod Joint Injection/Aspiration Podiatry: Procedure: Right ankle cortisone injection: Cleansed the right ankle with an alcohol swab in the area of the lateral gutter at the most painful location previously marked. Next injected 1.5 cc of lidocaine plain, 1 cc of dexamethasone, and 0.5 cc of triamcinolone in the area of the previously marked area with no incidents. A band-aid was applied to the area. Provided patient with after care instructions. RT - Injection of intermediate joint RT Procedure code (CPT) selection complete Office Meds triamcinolone acetonide 40 mg/mL suspension for injection Performing Provider: Laura Ling DPM Performing Location: [facility] Administered by: aLura Ling DPM on 07/09/25 08:37 Dose Route Admin Location Dispensed Lot Number Expiration Date [facility] Joint Supervisor 20 mg intra-articular 1 mL [id number] [employer] Total Dispensed Waste 1 mL 50 % dexamethasone sodium phosphate 4 mg/mL injection solution Performing Provider: Laura Ling DPM Performing Location: [facility] Administered by: Laura Ling DPM on 07/09/25 08:37 Dose Route Admin Location Dispensed Lot Number Expiration Date [facility] Joint Supervisor 4 mg intra-articular 1 mL [id number] [facility] Total Dispensed Waste 1 mL 0 % lidocaine HCl 10 mg/mL (1 %) injection solution Performing Provider: Laura Ling DPM Performing Location: [facility] Administered by: Laura Ling DPM on 07/09/25 08:37 Dose Route Admin Location Dispensed Lot Number Expiration Date [facility] Joint Supervisor 1.5 mL intra-articular 1.5 mL [id number] Total Dispensed Waste 1.5 mL 0 % Comments: Xylocaine 1% given Results Reviewed Results Reviewed: Laboratory Tests 03/12/25 03/30/25 09:07 14:06 C-Reactive Protein 2.99 H Rheumatoid Factor 21.0 H Podiatry read of Right ankle [employer] CT scan (06/22/25): Arthritic changes noted to the midfoot. Tendonitis of the Achilles tendon noted. Minimal calcaneal spurs noted to the posterior and plantar aspect of the calcaneus. No acute fractures or dislocations noted. Right ankle [employer] CT scan (06/22/25): No evidence of urate crystal deposition. No evidence of acute fracture or malalignment. Moderate degenerative changes of the navicular medial cuneiform joint. Thickening of the insertional Achilles tendon, may represent tendinosis. Podiatry Read of Right ankle MRI (05/10/25): Edema noted in the area of the lateral ankle ligaments, ankle, Achilles tendon. No complete ruptures noted. Sprained lateral ankle ligaments. Arthritic changes noted to the foot. Right ankle MRI (05/10/25): Findings: There is edema and cystic change in the navicular bone and medial cuneiform, degenerative. Intact articulations. Mild osteophytes. Small tibiotalar and subtalar joint effusions. Normal talar dome and subtalar joint cartilage. The Achilles tendon is increased in size and signal with mild peritendinous edema. The flexor and extensor tendons are intact. Deltoid ligament is intact. There is increased signal in the calcaneofibular and anterior talofibular ligaments. Normal anterior tibiofibular, posterior tibiofibular and posterior talofibular ligaments. Plantar fascia is intact and normal in size and signal. There is a calcaneal spur. No muscular atrophy. There is edema in the musculature and subcutaneous fat. Impression: Edema and cystic change in the navicular and medial cuneiform, degenerative. Small tibiotalar and subtalar joint effusions. Achilles tendinopathy with question of interstitial tears and mild peritendinitis. Sprain of the calcaneofibular and anterior talofibular ligaments. Edema in the soft tissues. Right foot x-rays (03/15/2025): FINDINGS: No acute cortical disruption. No gross malalignment. Degenerative changes in the first tarsometatarsal joint. No lytic or blastic lesions. Small spur, calcaneus. No subcutaneous emphysema. No gross joint effusion. Prominent soft tissues in the distal dorsal aspect of the foot. IMPRESSION: Soft tissue edema without subcutaneous emphysema. No acute fracture or dislocation. No osteomyelitis on x-ray. Right ankle x-rays (03/12/2025): FINDINGS: No fracture, dislocation, or suspicious bone lesion. There is anatomical alignment. The mortise is intact. The talar dome is normal. Joint spaces are preserved. The subtalar joints appear normal. There is a small plantar calcaneal spur. No soft tissue abnormalities. IMPRESSION: No acute bony abnormalities right ankle. Assessment & Plan Assessment & Plan (1) Ankle pain, right: Code(s): M25.571 - Pain in right ankle and joints of right foot Category: Medical Qualifiers: Chronicity: acute Qualified Code(s): M25.571 - Pain in right ankle and joints of right foot (2) Right ankle sprain: Code(s): S93.401A - Sprain of unspecified ligament of right ankle, initial encounter Category: Medical Qualifiers: Encounter type: subsequent encounter Involved ligament of ankle: anterior talofibular ligament Qualified Code(s): S93.491D - Sprain of other ligament of right ankle, subsequent encounter (3) Chronic instability of ankle: Code(s): M25.373 - Other instability, unspecified ankle Category: Medical (4) Insertional tendinopathy of right Achilles tendon: Code(s): M76.61 - Achilles tendinitis, right leg Category: Medical (5) Sprain of anterior talofibular ligament of right ankle: Code(s): S93.491A - Sprain of other ligament of right ankle, initial encounter Category: Medical Qualifiers: Encounter type: subsequent encounter Qualified Code(s): S93.491D - Sprain of other ligament of right ankle, subsequent encounter (6) Sprain of calcaneofibular ligament of right ankle, initial encounter: Code(s): S93.411A - Sprain of calcaneofibular ligament of right ankle, initial encounter Category: Medical (7) Right ankle swelling: Code(s): M25.471 - Effusion, right ankle Category: Medical (8) Rheumatoid arthritis: Code(s): M06.9 - Rheumatoid arthritis, unspecified Category: Medical Qualifiers: Rheumatoid factor presence: with rheumatoid factor (9) Peroneal tendinitis, right leg: Code(s): M76.71 - Peroneal tendinitis, right leg Category: Medical Plan Patient was informed and verbally consented to the use of an ambient scribe for clinic note documentation during this visit. I discussed with the patient the diagnosis of right insertional Achilles tendinitis and osteoarthritis of the right foot, explaining the presence of osteophytes and bone spurs. We reviewed the benefits and risks of a cortisone injection, emphasizing the importance of not injecting into tendons to avoid rupture. I advised the patient to continue using the ankle brace and to resume physical therapy after a two-day rest period following the injection. We also discussed the need for follow-up in six weeks to assess progress and adjust the treatment plan as necessary. - Administered cortisone injection into the right ankle joint to reduce pain and swelling. - Recommended continued use of lace-up stabilizing ankle brace and physical therapy to manage symptoms and improve function. - Advised a two-day rest period post-injection before resuming physical therapy. - Use lidocaine patches to manage pain. - Continue diclofenac for pain management. - Continue RICE protocol. - Consider surgical intervention if conservative treatment fails. RTC in 6 weeks for re-evaluation. Orders: Orders AMB Joint Injection/Aspiration Podiatry Today M25.373 - Other instability, unspecified ankle, M25.471 - Effusion, right ankle, M25.571 - Pain in right ankle and joints of right foot, M76.61 - Achilles tendinitis, right leg, M76.71 - Peroneal tendinitis, right leg, S93.411A - Sprain of calcaneofibular ligament of right ankle, initial encounter, S93.491D - Sprain of other ligament of right ankle, subsequent encounter Coding Level of Care Code Est Pt Level 4 (88148) Diagnoses Ankle pain, right M25.571 Chronicity: acute Sprain of anterior talofibular ligament of right ankle, subsequent encounter S93.491D Encounter type: subsequent encounter Involved ligament of ankle: anterior talofibular ligament Chronic instability of ankle M25.373 Insertional tendinopathy of right Achilles tendon M76.61 Sprain of anterior talofibular ligament of right ankle, subsequent encounter S93.491D Encounter type: subsequent encounter Sprain of calcaneofibular ligament of right ankle, initial encounter S93.411A Right ankle swelling M25.471 Rheumatoid arthritis M06.9 Rheumatoid factor presence: with rheumatoid factor Peroneal tendinitis, right leg M76.71 CPT Codes Joint injectio/aspiration Podiatry - Joint Injection POD5: RT - Injection of intermediate joint RT ([id number]) Time Spent (min) 40 Comment 5 mins for procedure
== END 2025-07-09 08:36 | disposition home or self-care (01) ==
LOC: HO.HPODS 07:34
PROVIDERS: PCP Physician Assistant Surgical; Visit Provider Student in an Organized Health Care Education/Training Program
DX: M25.571 Pain in right ankle and joints of right foot (principal); S93.491D Sprain of other ligament of right ankle, subsequent encounter; M25.373 Other instability, unspecified ankle; M76.61 Achilles tendinitis, right leg; S93.411A Sprain of calcaneofibular ligament of right ankle, initial encounter; M25.471 Effusion, right ankle; M06.9 Rheumatoid arthritis, unspecified; M76.71 Peroneal tendinitis, right leg
CPT/HCPCS: 20605; 99214

== ENCOUNTER → 2025-07-09 07:34 | Outpatient (BNVA) | payer OTHER, SELFPAY | PROVIDERS: PCP Physician Assistant Surgical; Visit Provider Student in an Organized Health Care Education/Training Program | DX: M25.571 Pain in right ankle and joints of right foot (principal); S93.491D Sprain of other ligament of right ankle, subsequent encounter; M25.373 Other instability, unspecified ankle; M76.61 Achilles tendinitis, right leg; S93.411D Sprain of calcaneofibular ligament of right ankle, subsequent encounter; M25.471 Effusion, right ankle; M06.9 Rheumatoid arthritis, unspecified; M76.71 Peroneal tendinitis, right leg; M19.071 Primary osteoarthritis, right ankle and foot | CPT/HCPCS: 20605; J1100; J2003; J3301 ==

== ENCOUNTER 2025-08-02 07:08 | Outpatient (REF) | payer OTHER, SELFPAY ==
--- OUTSIDE RECORDS SUMMARY | 2020-03-16 08:25 | XMS_ITS | Encounter Summary ---
Author Organization [facility] Address [address] [employer] [facility] [address] [place] [address] Phone Care Team Providers Care Contracts Attorney Name Role Phone Rachna Bernard INNER TUBE TUBER MACHINE OPERATOR Primary Care Provider [phone] Encounter Details Date Type Department Care Team (Late st Contact Info) Description 03/16/2020 9:25 AM EDT Hospital Encounter [facility] [address] [place] [address] Varsha Britton, MOUNTER BRASS WIND INSTRUMENTS 30 [place] [address] [email or web address] Social History Tobacco Use Types Packs/Day Years [...] EST Office Visit [facility] [place] [facility] 40 [place] [address] Miguel Juan PA-C 40 [place] [address] [email or web address] documented as of this encounter Procedures Procedure [...] AM EDT No significant bony abnormality. POS [id number] Narrative 03/16/2020 9:51 AM EDT Frontal and lateral views disclose no fracture, subluxation, or other significant abnormality involving the visualized regional skeletal structures. Procedure Note Jarad Goodrich MD - 03/16/2020 Frontal and lateral views disclose no fracture, subluxation, or othersignificant abnormality involving the visualized regional skeletalstructures. IMPRESSION: No significant bony abnormality. POS [id number] Varsha Britton MOUNTER BRASS WIND INSTRUMENTS IMG XR UPPER EXTREMITY Final Result documented [...] documented as of this encounter Care Teams Contracts Attorney Relationship Specialty Start Date End Date Rachna Bernard NP [email or web address] PCP - General Family Medicine 08/18/17 11/17/23 documented as of this encounter Additional Source Comments The information contained in this document represents components of the legal health record. It is not the complete legal health record.[facility]
--- OUTSIDE RECORDS SUMMARY | 2025-08-02 07:11 | XMS_ITS | Encounter Summary ---
Author Organization [facility] Address [address] [place] [address] [place] [address] Phone Care Team Providers Care Microfilm Mounter Name Role Phone Miguel Juan PA-C Primary Care Provider [phone] Reason for Referral * MRI/CAT Scan - [...] Expiration Date Visits Re quested Visits Authorized [id number] Closed 06/07/2025 06/07/2026 1 1 Encounter Details Date Type Department Care Team (Latest Contact Info) Description 06/07/2025 Transcribe Orders Virtual Department [address] [place] [address] Dnaiella Pink MD [address] [place] [address] Chronic gout without tophus, unspecified cause, unspecified [...] Description 08/09/2025 8:00 AM EST Office Visit [facility] Internal Medicine [address] [place] [address] Miguel Juan PA-C [address] [place] [address] [email or web address] documented as of [...] ankle was performed per the CT scan tombstone erector proprietary protocol. 3D images were created on [...] and ankle was performedper the CT scan tombstone erector proprietary protocol. 3D images were createdon an [...] documented as of this encounter Care Teams Microfilm Mounter Relationship Specialty Start Date End Date Miguel Juan PA-C [address] [place] [address] [email or web address] PCP - General Physician Chief Sales Officer 10/16/24 documented as of this encounter Additional Source Comments The information contained in this document represents components of the legal health record. It is not the complete legal health record.[facility]
--- OUTSIDE RECORDS SUMMARY | 2025-08-02 07:11 | XMS_ITS | Encounter Summary ---
Author Organization [facility] Address [address] [place] [address] Phone Care Team Providers Care Parole Hearing Officer Name Role Phone Miguel Juan PA-C Primary Care Provider [phone] Encounter Details Date Type Department Care Team (Late st Contact Info) Description 06/07/2025 Procedure Pass [facility], Ct Scan - [facility] [address] [place] [address] Social History Tobacco Use Types Packs/Day Years [...] Description 08/09/2025 8:00 AM EST Office Visit [facility] Medicine [address] [place] [address] Miguel Juan PA-C [address] [place] [address] [email or web address] documented as of this encounter Visit Diagnoses Not on filedocumented in this encounter Additional Health Concerns Assessment Noted Time PHQ-2 Depression Total Score: 0 01/23/20 25 12:24 PM EDT documented as of this encounter Care Teams Parole Hearing Officer Relationship Specialty Start Date End Date Miguel Juan PA-C [address] [place] [email or web address] PCP - General Physician Collar Worker 10/16/24 documented as of this encounter Additional Source Comments The information contained in this document represents components of the legal health record. It is not the complete legal health record.[facility]
--- OUTSIDE RECORDS SUMMARY | 2025-08-02 07:11 | XMS_ITS | Encounter Summary ---
Author Organization [facility] Address [address] [place] [address] [place] [address] Phone Care Team Providers Care Replenishment Buyer Name Role Phone Miguel Juan PA-C Primary Care Provider [phone] Reason for Visit * Reason Onset Date Comments Forms & Paperwork 07/24/2025 NOEL Lutz Encounter Details Date Type Department Care Team (Late st Contact Info) Description 07/24/2025 Telephone [facility] Internal Medicine [address] [place], [place] [phone] Miguel Juan PA-C [address] [place] [address] [email or web address] Forms & Paperwork (NOEL Lutz) Social History Tobacco Use Types Packs/Day Years [...] Progress Notes * Katy Cruz CMA - 07/30/2025 10:24 AM EST Faxed * Miguel Juan PA-C - 07/24/2025 12:09 PM EST Noted * Katy Cruz CMA - 07/24/2025 10:54 AM EST Received forms for foster care. Form in basket documented in this encounter Plan of Treatment Upcoming Encounters Date Type Department Care Team (Late st Contact Info) Description 08/09/2025 8:00 AM EST Office Visit [facility] Internal Medicine [address] [place] [address] Miguel Juan PA-C [address] [place] [address] [email or web address] documented as of this encounter Visit Diagnoses Not on filedocumented in this encounter Additional Health Concerns Assessment Noted Time PHQ-2 Depression Total Score: 0 01/23/20 25 12:24 PM EDT documented as of this encounter Care Teams Replenishment Buyer Relationship Specialty Start Date End Date Miguel Juan PA-C [address] [place] [address] [email or web address] PCP - General Physician Laser Operator 10/16/24 documented as of this encounter Additional Source Comments The information contained in this document represents components of the legal health record. It is not the complete legal health record.[facility]
--- OUTSIDE RECORDS SUMMARY | 2025-08-02 07:12 | XMS_ITS | Encounter Summary ---
Author Organization [facility] Address [address] [place] [address] [place] [address] Phone Care Team Providers Care It Support Technician Name Role Phone Vimal Merino MD Unavailable Rosalio Galeana MD Unavailable Rahcna Bernard WORLD TRAVEL COUNSELOR Unavailable [phone] Rachna Bernard WORLD TRAVEL COUNSELOR Primary Care Provider [phone] Ami Hoffman ANTIQUE FURNITURE RESTORER Primary Care Provider Miguel Juan PA-C Primary Care Provider Encounter Details Date Type Department Care Team (Latest Contact Info) Description 02/17/2018 Transcribe Orders [facility]le[facility] Main [address] [place], [place] [phone] Heath Moy MD [address] [place] [address], [address] [place], [place] [phone] [email or web address] MS (multiple sclerosis) (Primary Dx) Social [...] Description 08/09/2025 8:00 AM EST Office Visit [facility] Internal Medicine [address] [place] [address] Miguel Juan PA-C [address] [place] [address] [email or web address] documented as of this encounter Results * Miscellaneous lab test (02/17/2018 3:32 PM EDT) TESTS REQUESTED MYELIN OLIGODENDROCYTE GLYCOPROTEIN [facility] SPECIMEN/TUBE TYPE RED TOP [facility] REQUEST RECEIVED Request received. A separate order for the requested test will be generated by the laboratory. [facility] Blood 02/17/2018 3:32 PM EDT 02/17/2018 3:41 PM EDT us Heath Moy MD LAB BLOOD ORDERABLES Final R esult Performing Organization Address City/State/[facility] Co de Phone Number [facility] [address] [place] [address] documented in this encounter Visit Diagnoses Diagnosis [...] documented as of this encounter Care Teams It Support Technician Relationship Specialty Start Date End Date Rachna Bernard NP [address] [place] [address] [address] [place] [address] PCP - General Family Medicine 08/18/17 11/17/23 Ami Hoffman FNP [address] [facility] [address] [place] [address] PCP - General Nurse Practitioner 11/18/23 10/15/24 Miguel Juan PA-C [address] [place] [address] PCP - General Physician Lap Checker 10/16/24 Vimal Merino MD [address] [place] [address] Historical LMR Provider 06/08/17 12/07/19 Rosalio Galeana MD 22 [facility], [address] [place] [address] Historical LMR Provider 06/08/17 12/07/19 Rachna Bernard NP 26 [facility] [address] [place] [address] Historical LMR Provider 06/08/17 12/07/19 documented as of this encounter Additional Source Comments The information contained in this document represents components of the legal health record. It is not the complete legal health record.[facility]
--- OUTSIDE RECORDS SUMMARY | 2025-08-02 07:12 | XMS_ITS | Clinical Summary ---
Author Organization [facility] Address [address] [place] [address] Phone Care Team Providers Care Healthcare Technician Name Role Phone Miguel Juan PA-C Primary Care Provider [phone] Allergies Active Allergy Reactions Criticality Noted Date [...] 3 5 Active LORazepam (ATIVAN) 0.5 MG tabletIndications:G [...] 5 Active levothyroxine (SYNTHROID, LEVOTHROID) 75 MCG tabletIndications:A cquired hypothyroidism TAKE 1 TABLET (75 MCG TOTAL) BY MOUTH EVERY MORNING. 90 tablet 3 5 Active diclofenac sodium (VOLTAREN) 75 MG EC tablet Take 1 tablet (75 mg total) by mouth 2 (two) times a day. 28 tablet 5 Active Active Problems Problem Noted Date Diagnosed Date Acute right ankle pain 05/03/2025 Assessment & Plan (05/03/2025 9:50 AM EDT): Patient mentions that back in January she developed right ankle pain after walking down the stairs. She denies any trauma or history of popping sensation. She was seen at the [place] [facility] x 2 and had undergone right [...] any relief. She was seen by at [place] methods engineer who switched her out of the boot [...] -Patient has an appointment coming up with [facility] on 05/11 patient was advised to [...] she does have an appointment scheduled with [facility] on 05/11 for further evaluation. Of [...] without improvement on prednisone, will refer to [place] [facility] per patient request. Also, given the [...] Routine general medical exam ination at a [facility] facility 10/25/2024 Assessment & Plan (01/25/2025 8:11 AM EDT): Patient underwent laboratory data done at [facility]. Her labs were discussed during her office visit. She is up-to-date on her colonoscopy, mammogram and Pap smear will be completed this coming fall at [facility]. Annual physical 1 year Migraine without aura [...] up with neurology and referral placed to [facility] per patient request Urine frequency [...] a will be undergoing cortisone injections through [facility] in the upcoming weeks Assessment & Plan (03/13/2025 10:29 PM EDT): Chronic, unchanged, though symptoms are significantly impacting function today. Will make f/u with either [facility] or [place] Assessment & Plan (01/25/2025 8:09 AM EDT): Patient follows closely with [facility] and has undergone cortisone injections. Patient currently [...] (04/14/2024 9:44 AM EDT): Continue follow-up with [facility] as she notes that she prefers their office over [place] [facility]. Does note that previous injections were helpful for recent travel to [place]. Hypothyroidism 12/21/2017 Assessment & Plan (05/03/2025 7:53 [...] plan. The 10-year ASCVD risk score (Bean DK, et al., 2019) is: 4.7% Values used [...] Encounters Date Type Department Care Team Description 07/24/2025 Telephone [facility] Internal Medicine [address] [place] [address] Miguel Juan PA-C Forms & Paperwork ([facility]) 06/22/2025 Refill [facility] Internal Medicine [address] [place] [address] Naila Madison CNP Medication Refill 06/20/2025 6:31 PM EDT - 06/20/2025 11:59 PM EDT Hospital Encounter [address] [address] Daniella Pink MD Discharge Disposition: Home or Self Care 06/07/2025 Procedure Pass [address] [address] 06/07/2025 Transcribe Orders Virtual Department [address] [place] [address] Daniella Pink MD Chronic gout without tophus, unspecified cause, unspecified site (Primary Dx); Other chondrocalcinosis, unspecified site 06/06/2025 Orders Only [facility] Internal Medicine [address] [place] [address] Kristian Young MD 06/04/2025 Refill [facility] Internal Medicine [address] [place] [address] Miguel Juan PA-C Medication Refill 06/01/2025 Orders Only [facility] Internal Medicine [address], [place] [id number] Kristian Young MD 05/28/2025 Refill [facility] Internal Medicine [address] [place] [address] Ami Hoffman, LINDA Medication Refill 05/14/2025 Orders Only [facility] Internal Medicine [address] [place] [address] Provider, MD Kristian 05/03/2025 8:00 AM EDT Office Visit [facility] Internal Medicine [address] [place] [address] Miguel Juan PA-C Mixed hyperlipidemia (Primary Dx); [...] Description 08/09/2025 8:00 AM EST Office Visit [facility] Internal Medicine [address] [place] [address] Miguel Juan PA-C [address] [place] [address] [email or web address] Health Maintenance Due Date Last Done Comments COLOGUARD 2002 FIT TEST 2002 FOBT 2002 SIGMOIDOSCOPY 2002 VIRTUAL COLONOSCOPY 2002 COVID-19 VACCINE ( season) 2025 09/20/2020, 08/30/2020 TSH LEVEL 01/13/2026 01/13/2025, 052 09/2024, 12/31/2023, Additional history exists DEPRESSION SCREENING 01/22/2026 01/22/2025 MAMMOGRAM 06/26/2027 06/26/2025, 01/0 11/2024, 08/19/2023, Additional history exists SCREENING FOR [...] 01/13/2025 OUTSIDE TSH LEVEL Routine 01/13/2025 HM COLONOSCOPY FOR RESULT ENTRY ONLY Routine 06/20/2021 [...] ankle was performed per the CT scan science and operations officer proprietary protocol. 3D images were created on [...] of the insertional Achilles tendon. Procedure Note Anabel, Cheyanne Herbert MD - 06/22/2025 CT ANKLE WITHOUT CONTRAST (RIGHT) Referring clinician's provided indication for this examination in Epic:Outside Radiology Order; gout TECHNIQUE: Multidetector-row CT of the ankle, without intravenous contrastusing dose-modulation techniques. Images were reconstructed in the axial,coronal, and sagittal planes. Acquired dual-energy data was utilized forpostprocessing. Color coded mapping of the foot and ankle was performedper the CT scan science and operations officer proprietary protocol. 3D images were createdon an [...] Achilles tendon, may representtendinosis. Daniella Pink MD IM CT EXTREMIT Y Final Result * Outside Lab (05/30/2025 11:34 AM EDT) Only the most recent of2 resultswithin the time period is included. Result [facility] LAB BLOOD BKR ORDERABLES Final Result * Outside Hepatitis C Virus Screening (05/30/2025) Pathologist [facility] Hepatitis C Screening - External Neg Result Critical access hospital LAB BLOOD ORDERABLES Loren l Result * Outside Potassium Level (05/30/2025) [facility] Potassium level - External 4.5 3.4 - 5.0 mmol/L Result [facility] hospital LAB BLOOD ORDERABLES Loren l Result * Outside Serum Creatinine Level (05/30/2025) Pathologist [facility] Creatinine, serum - External 0.88 0.8 - 1.3 mg/dL Result [facility] hospital LAB BLOOD ORDERABLES Loren l Result * (ABNORMAL) Outside ALT Level (05/30/2025) [facility] ALT - External 31(A) 5 - 30 U/L Result [facility] hospital LAB BLOOD ORDERABLES Loren l Result * Outside MR Extremity Lower report Only (05/10/2025 8:24 AM EDT) Result [facility] Provider IMG MR EXTREMITY Final Re sult * Outside TSH Level (01/13/2025) [facility] TSH - External 0.61 0.5 - 5 uIU/L Result Critical [facility] hospital LAB BLOOD ORDERABLES Loren l Result * Outside Glucose,Fasting (01/13/2025) [facility] Glucose, fasting - External 96 65 - 99 mg/dL Result [facility] hospital LAB BLOOD ORDERABLES Loren l Result * Outside HDL (01/13/2025) [facility] HDL - External 44 40 - 80 mg/dL Result Critical [facility] hospital LAB BLOOD ORDERABLES Loren l Result * [...] Most Recently Relevant to Health Maintenance Insurance [employer] Member Subscriber Plan / Payer (Ef fective 2019-Present) Name:Yahaira Jaeger Relation to Subscriber:Self Name:Yahaira Jaeger Payer ID:[id number] (NAIC) Type:PPO Address: [place] [id number] [employer] B[employer] [place] [address] [employer] B[employer]EFITS ADMINISTRATORS [facility] ADMINISTRATORS [facility] [employer]EFITS ADMIN[employer]RATORS Care Teams Healthcare Technician Relationship Specialty Start Date End Date Miguel Juan PA-C [address] [place] [address] [email or web address] PCP - General Physician Paper Processing Machine Helper 10/16/24 Additional Source Comments The information contained in this document represents components of the legal health record. It is not the complete legal health record.[facility]
--- OUTSIDE RECORDS SUMMARY | 2025-08-02 07:12 | XMS_ITS | Encounter Summary ---
Author Organization [facility] Address [address] [place] [address] [place] [address] Phone Care Team Providers Care Oracle Programmer Name Role Phone Rachna Bernard AUTO BRAKE TECHNICIAN Primary Care Provider Ami Hoffman Primary Care Provider Miguel Juan PA-C Primary Care Provider [phone] Encounter Details Date Type Department Care Team (Late st Contact Info) Description 06/21/2023 Nurse Triage [facility] Internal Medicine [address] [place] [address] Rachna Bernard AUTO BRAKE TECHNICIAN [address] [facility] [address] [place] [address] [email or web address] Social History Tobacco Use Types Packs/Day Years [...] high school, GED, job training, learning the Niuean language, technical skills, or developing parenting skills)? [...] SOB Protocols used: CORONAVIRUS (COVID-19) DIAGNOSED OR [id number] Nurse Triage Encounter Note Reason for Triage Yahaira Jaeger contacted office for None Call Disposition Home Care Patient/caregiver understands and will follow disposition: Unsure Patient/caregiver understands and will follow care advice: Disposition Comments: Protocols used: Coronavirus (Covid-19) Diagnosed Or Hfogrxmsa-Evybc-Bn Initial Symptom Screening and Assessment IA None [...] either acetaminophen or ibuprofen. * They are qiag-vpq-puxdccc (OTC) drugs that help treat both fever [...] Description 08/09/2025 8:00 AM EST Office Visit [facility] Internal Medicine [address] [place] [address] Miguel Juan PA-C [address] [place] [address] [email or web address] documented as of this encounter Visit Diagnoses Not on filedocumented in this encounter Additional Health Concerns Infection Onset Date Last Indicated Resolved Time CoV-Risk 07/01/2024 07/01/2024 07/12/2024 1:21 AM EST Assessment Noted Time PHQ-2 Depression Total Score: 0 08/18/20 22 3:41 PM EST documented as of this encounter Care Teams Oracle Programmer Relationship Specialty Start Date End Date Rachna Bernard AUTO BRAKE TECHNICIAN PCP - General Family Medicine 08/18/17 11/17/23 Ami Hoffman FNP [address] [address] PCP - General Nurse Practitioner 11/18/23 10/15/24 Miguel Juan PA-C [address] [place] [address] PCP - General Physician Wind Turbine Erector 10/16/24 documented as of this encounter Additional Source Comments The information contained in this document represents components of the legal health record. It is not the complete legal health record.[facility]
[2025-08-02 08:33] LABS: Cholesterol 176 mg/dL (<200); HDL Cholesterol 63 mg/dL (>40); Triglycerides 96 mg/dL (<150)
== END 2025-08-02 07:09 | disposition home or self-care (01) ==
LOC: HO.LAB 07:08
PROVIDERS: Absent Provider Registered Nurse; PCP Physician Assistant Surgical; Visit Provider Physician Assistant Surgical
DX: M96.1 Postlaminectomy syndrome, not elsewhere classified (principal); M47.816 Spondylosis without myelopathy or radiculopathy, lumbar region; M53.3 Sacrococcygeal disorders, not elsewhere classified; E78.5 Hyperlipidemia, unspecified; R79.82 Elevated C-reactive protein (CRP)
CPT/HCPCS: 36415; 80061; 86140

== ENCOUNTER 2025-08-02 07:49 | Outpatient (AMB) | payer OTHER, SELFPAY ==
--- NOTE | 2025-08-02 08:00 | A.OFFVIS_ITS ---
Vital Signs 08/02/25 08:04 Height 5 ft 3 in Weight 164 lb 8 oz BMI 29.1 BP 137/78 Blood Pressure Location Rt brachial Position Sitting Pulse 71 Pulse Source Pulse Oximeter Pulse Oximetry (%) 100 Oxygen Delivery Method Room Air Intake Visit Reasons: S/P Bilateral Therapeutic SIJ Injections Intake Note: Pain today 0/10 Air Conditioning Equipment Mechanic Required: No Accompanied by: Self / Same As Patient Allergies gluten (Gluten) Allergy (Severe, Verified 08/02/25 08:10) Gastrointestinal Upset Penicillins Allergy (Intermediate, Verified 08/02/25 08:10) Rash Sulfa (Sulfonamide Antibiotics) Allergy (Intermediate, Verified 08/02/25 08:10) Rash Codeine Phosphate Allergy (Intermediate, Uncoded 03/15/25 07:01) Nausea HPI Comments Details: The patient is a 70 year old female presenting for a one-month follow-up visit after receiving bilateral therapeutic sacroiliac joint injections. The injections were successful, and her pain level today is 0/10. It took approximately five days for the injections to take effect, and she reports that activities such as sitting, changing positions, sleeping, and walking have all improved. In May, she underwent diagnostic sacroiliac joint injections which provided complete pain relief for three days. Separately, she has chronic right ankle instability and is being seen by a Transfer Iron Operator. She recently completed physical therapy for her ankle and received an injection a couple of weeks ago, which has been helpful. Her medical history is significant for osteopenia, but she denies a diagnosis of osteoporosis. Since her last visit for the injections, she denies any emergency room or Urgent care visits, medication changes, or other procedures. Pain Description - Analgesia: The patient reports a current pain level of 0/10 following bilateral therapeutic SI joint injections one month ago. - Location: The patient's pain was located in the bilateral sacroiliac joints. - Modifying Factors: Pain was previously exacerbated by sitting, changing positions, sleeping, and walking, all of which have improved post-injection. - Prior Interventions: Diagnostic SI joint injections in May provided complete relief for three days. Pain Management - Analgesia: The patient is experiencing significant pain relief with a current pain score of 0/10 following bilateral therapeutic SI joint injections one month ago. - Activities of Daily Living: Functionality has improved, including sitting, changing positions, sleeping, and walking. Past Procedures: 07/03/2025: Bilateral therapeutic sacroiliac joint injections- ongoing 100% pain relief 06/05/2025: Bilateral diagnostic sacroiliac joint injections-100% pain relief for 3 days [facility] Medical History Peroneal tendinitis, right leg Right ankle swelling Insertional tendinopathy of right Achilles tendon Chronic instability of ankle Sprain of calcaneofibular ligament of right ankle, initial encounter Sprain of anterior talofibular ligament of right ankle Right ankle sprain Transient neurological symptoms Hypersomnia Snoring Chest pain Crescendo angina Angina pectoris Hypothyroidism Low back pain COVID-19 vaccine series completed Anxiety GERD (gastroesophageal reflux disease) Celiac disease Restless leg syndrome Surgical History Hx of bilateral cataract extraction History of esophagogastroduodenoscopy (EGD) Hx of colonoscopy Hx of foot surgery Hx of tonsillectomy Hx of appendectomy History of back surgery Family History Daughter Celiac disease Social History Household Members: Children Household Members Other:: son age 17 Housing: House Are you a primary senior care assistant to a significant other at home: No Do you presently have visiting nurse or other home services: No Alcohol intake: current Alcohol intake frequency: holidays/special occasions only Patient Tobacco Use Status: Former Tobacco user Tobacco use type: Cigarette Advance Directives Date on File: 03/14/21 service: No Current occupational status: employed 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 Alert and oriented. Mood and affect appropriate. Follows and participates in conversation appropriately. Respiratory effort is unlabored. Able to transition from sit to stand unassisted. Ambulates with bilaterally normal heel strike and toe off. Able to stand and walk on toes (L5-S1) and heels (L4-L5). Back/Spine/Pelvis Cervical Spine: cervical ROM normal and No Cervical spine tenderness Thoracic/Lumbar Spine: thoracic and lumbar spine normal to inspection, Thoracic/lumbar spine scar(s), Lasegue's sign negative, straight leg raise negative bilaterally, thoraco-lumbar ROM limited, No thoracic spinal tenderness and lumbar spinal tenderness (L4-S1) Sacroiliac joints: bilaterally nontender Assessment & Plan Assessment & Plan (1) Post laminectomy syndrome: Code(s): M96.1 - Postlaminectomy syndrome, not elsewhere classified Category: Medical (2) Lumbar spondylosis: Code(s): M47.816 - Spondylosis without myelopathy or radiculopathy, lumbar region Category: Medical (3) Sacroiliac joint pain: Code(s): M53.3 - Sacrococcygeal disorders, not elsewhere classified Category: Medical Plan The patient has had an excellent response to bilateral therapeutic sacroiliac joint injections. The plan is to monitor the duration of pain relief from this procedure. Future SI joint injections will be scheduled as needed when the pain returns, maintaining an interval of at least three, and preferably six, months between treatments. Due to her diagnosis of osteopenia, injections will be limited to a maximum of twice per year. If the duration of relief shortens to only three months, alternative treatment options such as neuromodulation or radiofrequency ablation will be considered. The patient was advised that she can call the office to schedule subsequent injections, and follow up sooner if there are new pain concerns. She will continue to follow up with her Transfer Iron Operator for her chronic ankle instability. All questions and concerns have been answered and patient agreed with the treatment plan. Follow up as needed. Patient was informed and verbally consented to the use of an ambient scribe for clinic note documentation during this visit. Coding Level of Care Code Est Pt Level 3 (01036) Diagnoses Post laminectomy syndrome M96.1 Lumbar spondylosis M47.816 Sacroiliac joint pain M53.3
[2025-08-02 08:04] VITALS: BP 137/78; PULSE 71; O2SAT 100; BMI 29.1
--- OUTSIDE RECORDS SUMMARY | 2025-08-02 08:04 | XMS_ITS | Data Portability ---
Author Organization [facility] Address [address] [place] [address] Care Team Providers Care Admissions Manager Name Role Phone MARIAH NORTH Primary Care Provider [phone] Assessment Encounter Date Assessment Date Assessment LastModified [...] distally. X-rays ordered, obtained and reviewed at [facility]: 5 views of the right [...] condition, to please contact our office immediately. [email or web address] Not available 03/21/2025 12:13:09 Plan of Treatment Reminders Order Date Submit Date Provider Last Modified By Organization Details Last Modified Time Details Appointments None recorded. Lab None recorded. Referral None recorded. Procedures None recorded. Surgeries None recorded. Imaging XR, ankle + foot - ---3V FOOT WB, 2V ANKLE WB room 2 2024 025 [facility], [address] [facility] [address], [address], 5 14:31:43 Medication Orders meloxicam 15 mg tablet 2024 025 [facility], [address] [facility], [place], [address], 5 09:55:20 Patient TargetsNo targets recorded. Patient InstructionsNo instructions recorded. Reason for Referral None Reported. Results Created Date Observation Date Name Description Value Unit Range Abnormal Flag Note LastModifiedBy Organization Detail LastModifiedTime 03/21/20 25 03/21/2025 XR, ankle + foot http:/ [email or web address] ?Encry pted=s hAaTro YD8dLq bEUv6g %2BXZw aYqtaq 0bqfl% 2Fg9IQ a4ajBk vP9nXo QUaueC m3YtLR FvZlgJ JJ8mAn HZtai3 3n8942 AC0Klb n6NUaS iKiQtr MwF INTERFACE [facility] Office [address], [place], [address], 03/21/2025 09:26:05 03/21/20 25 03/21/2025 XR, ankle + foot http:/ [email or web address] ?Encry pted=s hAaTro YD8dLq bEUv6g %2BXZw aYqtaq 0bqfl% 2Fg9IQ a4ajBk vP9nXo QUaueC m3YtLR FvZl JJ8mAn HZtai3 3n7700 AC0Klb n6NUaS iKiQtr MwF INTERFACE [facility] [address], [address], 03/21/2025 09:26:07 Result Notes Documentation Provider Name and Address Organization Details Recorded Time Xr, Ankle + Foot : [email or web address] Encrypted=xiLdLfiTB8wJliJ Uv6g%6CUPxnOykqx9ksxs%2Fg 4RYk3mgQcyV2xYvACikaLs6Zy FWTeMjyJWU8lMhKRfnh06h440 1HC3Rbwy2AWwWjCpZzqOmO Not Available [facility] 03/21/2025 09:26: 06 Xr, Ankle + Foot : [email or web address] Encrypted=riQjExkDX7rQlzF Uv6g%4QUDwuMmvgb1poao%2Fg 7UJe4awBqkF6sFxHOtcdUw2Br QHUmLpdRLW1aEiYEhpx97z130 3KB6Dkyf2CYeHnLlEpbZcH Not Available [facility] 03/21/2025 09:26: 07 Problems Name Problem SNOMED Code Status Onset Date Resolution Date Notes Provider Name and Address Organization Details Recorded Time No complaints 978480136 Active Status : 'I'; Not Available [facility] 4 09:15:44 Pain in right foot 6936128017208 07 Active 2024 JESUS watters [place] - [facility] 5 09:04:59 Problem Notes None recorded. Medical Equipment None Reported. Allergies Allergen ID Allergen Name Allergen Category Reaction Reaction Severity Criticality Documentation Date Start Date Code Code System Note Provider Name and Address Organization Details Recorded Time 18151 Substance with sulfonami de structure and antibacte rial mechanism of action (substanc e) medicatio n Not available Not available Not available 10/25/20232009 73971 8003 SNOMED Aller gyRea ction : 'Skin React ion'; Not Available [facility] 4 13:40:21 22524 wheat gluten extract food Not available Not available Not available 10/25/20232009 00239 81 RxNorm Not Available [facility] 4 13:40:22 13518 codeine medicatio n Not available Not available Not available 10/25/20232022 2670 RxNorm Not Available [facility] 4 13:40:22 42073 Product containin g penicilli n (product) medicatio n Not available Not available Not available 10/25/20232022 39170 8001 SNOMED Not Available [facility] 4 13:40:22 Medications Name Sig Start Date [...] Updated DateTime 03/21/2025 160.02 cm 29.2 kg/m2 96476.74 g KAYLIA L'HEUREUX [facility] 03/21/2025 09:00:15 Social History Question Answer Notes LastModified by [employer] ion Details LastModified Time Tobacco Smoking Status Never Smoker KAJODIE L'HEUREUX [facility] 03/21/2025 09:02:42 What Is Your Relationship [...] Disease N Heart Trouble N Heart Attack ([place]) N Gastrointestinal Disease N Cholesterol N Diabetes [...] ICD10 Code Diagnosis IMO Codes Diagnosis Note [id number] [place] Lowry PA-C [facility] [place] [address] [place] [address] 03/21/2025 08:33:31 03/30/2025 14:31:43 Pain in right foot 9145339399 [address]93[address] M79.671 603879 Peroneal t endinitis of right lower limb 3916177667 81316 M76.71 [id number] I am prescribin g this patient oral [...] Name 05/21/2025 1 [employer] [place] [facility] (EPO [address]89 Yahaira Jaeger [id number] Yahaira Jaeger OBGyn Episode No OBEpisode recorded.
== END 2025-08-02 08:25 | disposition home or self-care (01) ==
LOC: HO.PMC 07:49
PROVIDERS: PCP Physician Assistant Surgical; Visit Provider Nurse Practitioner Family
DX: M96.1 Postlaminectomy syndrome, not elsewhere classified (principal); M47.816 Spondylosis without myelopathy or radiculopathy, lumbar region; M53.3 Sacrococcygeal disorders, not elsewhere classified
CPT/HCPCS: 99213

== ENCOUNTER 2025-08-06 17:00 | Outpatient (RCR) | payer OTHER, SELFPAY ==
--- NOTE | 2025-05-30 16:08 | MHC.PT.EP ---
[facility] [place] [facility] [place] [facility] [place] [facility] [address] Melanie Samayoa [address] [phone] F: [phone] F: [phone] F: [phone] F: [phone] Physical Therapy Plan of Care Date of Evaluation: 05/30/25 Date of Surgery: N/A Diagnosis: sprained ankle (RL) Assessment: pt is a 70 y/o female presenting to physical therapy w/ referring diagnosis of sprained ankle. Impairments include pain, decreased range of motion, decreased strength, impaired functional mobility, impaired postural awareness, and altered ambulation mechanics. pt is a good candidate for skilled PT due to age, potential remediation of impairments, typical disease/condition progression and prognosis, comorbidities, and motivation. pt would benefit from skilled PT intervention to provide a tailored strengthening and stretching exercise program, functional training, gait training, postural re-training, neuromuscular re-education, modalities as needed for pain, equipment safety demonstration. Frequency and Duration: The patient will be seen 2x/wk for 8 wks Short Term Goals: pt will be I w/ HEP to promote self-management of condition. pt will improve R ankle DF by at least 15* to promote ease in anterior tibial translation w/ gait on even ground. Senior Care Goals: pt will ambulate >1000' ft w/ LRAD to promote ease in community ambulation. pt will report a statistically significant improvement in self-reported outcome measure, LEFI, to promote return to PLOF. Treatment Plan: Modalities to reduce pain, spasms and effusion. Manual therapy to restore motion and function. Therapeutic exercise to improve strength and flexibility. Neuromuscular re-education for posture and balance. Therapeutic activities to return to functional activities of daily living. Electronically signed by: Rona Krause PT, DPT Please sign and return to therapist. Thank you for your referral.
--- NOTE | 2025-08-20 15:08 | MHC.PT.DC ---
[facility] [place] Office [place] Office [place] Office [address] [phone] F: [phone] F: [phone] F: [phone] F: [phone] Physical Therapy Discharge Report Diagnosis: sprained ankle (RL) Date of Surgery: N/A Date of Evaluation: 05/30/25 Date of Discharge: 08/20/25 Treatments to Date: 8 Cancellations to Date: 9 No Shows to Date: 0 Discharge Status: Improved Function Independent with HEP Discharge Summary: The patient overall was reporting less frequent and intense ankle/foot pain. She still has some persistent symptoms with driving, sleeping and some prolonged positions. She is independent with her home exercise program and was educated to continue with them. She is discharged from this physical therapy plan of care. Electronically signed by: Rona Krause PT, DPT Please sign and return to therapist. Thank you for your referral.
== END 2025-08-20 15:08 | disposition home or self-care (01) ==
LOC: HO.PT 17:00
PROVIDERS: PCP Physician Assistant Surgical; Visit Provider Student in an Organized Health Care Education/Training Program
DX: M25.571 Pain in right ankle and joints of right foot (principal); M25.371 Other instability, right ankle; S93.401A Sprain of unspecified ligament of right ankle, initial encounter
CPT/HCPCS: 97110; 97162; 97530

== ENCOUNTER → 2025-08-17 10:52 | Outpatient (REF) | payer OTHER, SELFPAY ==
--- OUTSIDE RECORDS SUMMARY | 2020-03-16 08:25 | XMS_ITS | Encounter Summary ---
Author Organization [facility] Address [address] [employer] [facility] [address] [place] [address] Phone Care Team Providers Care Family Court Counsellor Name Role Phone Rachna Bernard UNIX SYSTEMS ADMINISTRATOR Primary Care Provider [phone] Encounter Details Date Type Department Care Team (Late st Contact Info) Description 03/16/2020 9:25 AM EDT Hospital Encounter [facility] [address] [place] [address] Varsha Britton, DATABASES SOFTWARE CONSULTANT 30 [place] [address] [email or web address] Social History Tobacco Use Types Packs/Day Years [...] Care Team (Late st Contact Info) Description 11/13/2025 8:00 AM EDT Office Visit [facility] [address] [facility] [place] [address] Miguel Juan PA-C 40 [place] [address] [email or web address] documented as of this encounter Procedures Procedure [...] AM EDT No significant bony abnormality. POS [id number] Narrative 03/16/2020 9:51 AM EDT Frontal and lateral views disclose no fracture, subluxation, or other significant abnormality involving the visualized regional skeletal structures. Procedure Note Jarad Goodrich MD - 03/16/2020 Frontal and lateral views disclose no fracture, subluxation, or othersignificant abnormality involving the visualized regional skeletalstructures. IMPRESSION: No significant bony abnormality. POS [id number] Varsha Britton [facility] IMG XR UPPER EXTREMITY Final Result documented [...] documented as of this encounter Care Teams Family Court Counsellor Relationship Specialty Start Date End Date Rachna Bernard NP [email or web address] PCP - General Family Medicine 08/18/17 11/17/23 documented as of this encounter Additional Source Comments The information contained in this document represents components of the legal health record. It is not the complete legal health record.[facility]
--- NOTE | ~2025-08-17 | NM_ITS ---
EXAMINATION: NM PARATHYROID SPECT AND CT HISTORY: E21.3 - Hyperparathyroidism, unspecified. TECHNIQUE: A parathyroid imaging study was performed following the intravenous administration of 30 mCi technetium 99m-sestamibi. Planar imaging of the neck was performed at 20 minutes and at 75 minutes. SPECT/CT imaging was performed at 2 hours. COMPARISON: There are no prior studies available for comparison. FINDINGS: Early images of the neck demonstrate faint activity in the thyroid gland as well as activity in salivary glands. There is washout of activity from the thyroid on delayed images. No foci of abnormal activity are identified. No abnormality is seen in the neck on SPECT/CT imaging. NM/NM parathyroid SPECT w CT IMPRESSION: No scintigraphic evidence of a parathyroid adenoma. Electronically signed by: Ronaldo Castillo MD 08/17/2025 02:15 PM [facility] [place]
--- OUTSIDE RECORDS SUMMARY | 2025-08-17 10:55 | XMS_ITS | Encounter Summary ---
Author Organization [facility] Address [address] [place] [address] [place] [address] Phone Care Team Providers Care Poultry Pathologist Name Role Phone Vimal Merino MD Unavailable Rosalio Galeana MD Unavailable [phone] Rachna Bernard CURTAINS [employer] DRAPERIES SALESPERSON Unavailable [phone] Rachna Bernard [employer]TA[employer]AP[employer] SALESPERSON Primary Care Provider [phone] Ami Hoffman ROUTE SALES DELIVERY DRIVERS SUPERVISOR Primary Care Provider [phone] Miguel Juan PA-C Primary Care Provider [phone] Encounter Details Date Type Department Care Team (Latest Contact Info) Description 02/17/2018 Transcribe Orders [facility] Phleb Main [address] [place], [place] [id number] Heath Moy MD [address] [place] [address], [address] [place], [place] [id number] [email or web address] MS (multiple [...] Description 11/13/2025 8:00 AM EDT Office Visit [facility] [address] [place] [address] Miguel Juan PA-C [address] [place] [address] [email or web address] documented as of this encounter Results * Miscellaneous lab test (02/17/2018 3:32 PM EDT) TESTS REQUESTED MYELIN OLIGODENDROCYTE GLYCOPROTEIN [facility] SPECIMEN/TUBE TYPE RED TOP [facility] REQUEST RECEIVED Request received. A separate order for the requested test will be generated by the laboratory. [facility] Blood 02/17/2018 3:32 PM EDT 02/17/2018 3:41 PM EDT us Heath Moy MD LAB BLOOD ORDERABLES Final R esult Performing Organization Address City/State/[facility] Co de Phone Number [facility] [address] [place] [address] documented in this encounter Visit Diagnoses Diagnosis [...] documented as of this encounter Care Teams Poultry Pathologist Relationship Specialty Start Date End Date Rachna Bernard NP 26 [facility] [address] [place] [address] PCP - General Family Medicine 08/18/17 11/17/23 Ami Hoffman FNP 15 [facility] [address] [place] [address] PCP - General Nurse Practitioner 11/18/23 10/15/24 Miguel Juan PA-C [address] [place] [address] PCP - General Physician Slip Operator 10/16/24 Vimal Merino MD [address] [place] [address] Historical LMR Provider 06/08/17 12/07/19 Rosalio Galeana MD 22 [facility], [address]nd [place] [address] Historical LMR Provider 06/08/17 12/07/19 Rachna Bernard NP 26 [facility] 6 [place] [address] Historical LMR Provider 06/08/17 12/07/19 documented as of this encounter Additional Source Comments The information contained in this document represents components of the legal health record. It is not the complete legal health record.[facility]
--- OUTSIDE RECORDS SUMMARY | 2025-08-17 10:55 | XMS_ITS | Encounter Summary ---
Author Organization [facility] Address [address] [place] [address] [place] [address] Phone Care Team Providers Care Physician Credentialing Specialist Name Role Phone Miguel Juan PA-C Primary Care Provider [phone] Reason for Referral * MRI/CAT Scan - [...] Expiration Date Visits Re quested Visits Authorized [id number] Closed 06/07/2025 06/07/2026 1 1 Encounter Details Date Type Department Care Team (Latest Contact Info) Description 06/07/2025 Transcribe Orders Virtual Department 30 [place] [address] Daniella Pink MD [address] [place] [address] Chronic gout without tophus, unspecified cause, unspecified [...] 11/13/2025 8:00 AM EDT Office Visit [facility] 40 [place], [place] [id number] Miguel Juan PA-C 40 [place] [address] [email or web address] documented as of this encounter [...] ankle was performed per the CT scan supervisor electronics assembly proprietary protocol. 3D images were created on [...] and ankle was performedper the CT scan supervisor electronics assembly proprietary protocol. 3D images were createdon an [...] documented as of this encounter Care Teams Physician Credentialing Specialist Relationship Specialty Start Date End Date Miguel Juan PA-C [address] [place] [email or web address] PCP - General Physician Flight Control Manager 10/16/24 documented as of this encounter Additional Source Comments The information contained in this document represents components of the legal health record. It is not the complete legal health record.[facility]
--- OUTSIDE RECORDS SUMMARY | 2025-08-17 10:55 | XMS_ITS | Encounter Summary ---
Author Organization [facility] Address [address] [place] [address] Phone Care Team Providers Care Cash Analyst Name Role Phone Miguel Juan PA-C Primary Care Provider [phone] Encounter Details Date Type Department Care Team (Late st Contact Info) Description 06/07/2025 Procedure Pass [facility], Ct Scan - [facility] [address] [place] [address] Social History Tobacco Use Types Packs/Day Years [...] Description 11/13/2025 8:00 AM EDT Office Visit [facility] [address] [place] [address] Miguel Juan PA-C 40 [place] [address] [email or web address] documented as of this encounter Visit Diagnoses Not on filedocumented in this encounter Additional Health Concerns Assessment Noted Time PHQ-2 Depression Total Score: 0 01/23/20 25 12:24 PM EDT documented as of this encounter Care Teams Cash Analyst Relationship Specialty Start Date End Date Miguel Juan PA-C [address] [place] [address] .Aureliant PCP - General Physician Rn Documentation 10/16/24 documented as of this encounter Additional Source Comments The information contained in this document represents components of the legal health record. It is not the complete legal health record.[facility]
--- OUTSIDE RECORDS SUMMARY | 2025-08-17 10:55 | XMS_ITS | Clinical Summary ---
Author Organization [facility] Address [address] [place] [address] Phone Care Team Providers Care Detective Investigator Name Role Phone Miguel Juan PA-C Primary Care Provider [phone] Allergies Active Allergy Reactions Criticality Noted Date [...] popping sensation. She was seen at the [facility] x 2 and had undergone right [...] any relief. She was seen by at [facility] who switched her out of the boot [...] -Patient has an appointment coming up with [facility] on 05/11 patient was advised to [...] she does have an appointment scheduled with [facility] on 05/11 for further evaluation. Of [...] without improvement on prednisone, will refer to [facility] per patient request. Also, given the [...] orthopedic walk in clinic for additional evaluation. Impacted cerumen of left ear 01/25/2025 Assessment & Plan (08/09/2025 8:36 AM EST): Patient noted to have cerumen impaction on the left external ear canal on physical examination after patient complaint of some feelings of off balance and left ear pain. After manual removal TM was visualized which showed dull cone of light. I did explain to the patient that she could have fluid behind there from eustachian tube dysfunction and advised decongestants which the patient will try. She was advised that if she does not have improvement in her symptoms she should call back to the office for further evaluation. Assessment & Plan (01/25/2025 8:22 AM EDT): Patient with bilateral cerumen impaction. Ear lavage completed with success in the office today. Routine general medical exam ination at a [facility] care facility 10/25/2024 Assessment & Plan (01/25/2025 8:11 AM EDT): Patient underwent laboratory data done at [facility]. Her labs were discussed during her office visit. She is up-to-date on her colonoscopy, mammogram and Pap smear will be completed this coming fall at [facility]. Annual physical 1 year Migraine without aura and [facility] status migrainosus, not [...] up with neurology and referral placed to [facility] per patient request Urine frequency 12/14/2023 [...] back pain. She has been seen by [facility] with noted cortisone injections. She has been managing her pain with PT, ibuprofen, stretching, heat, and lidocaine patches. During her last visit in January, she asked to have her PMLA extended. Patient is a will be undergoing cortisone injections through [facility] in the upcoming weeks Assessment & Plan (03/13/2025 10:29 PM EDT): Chronic, unchanged, though symptoms are significantly impacting function today. Will make f/u with either [facility] or [facility] Assessment & Plan (01/25/2025 8:09 AM EDT): Patient follows closely with [facility] and has undergone cortisone [...] (04/14/2024 9:44 AM EDT): Continue follow-up with [facility] as she notes that she prefers their office over [facility]. Does note that previous injections were helpful for recent travel to [place]. Hypothyroidism 12/21/2017 Assessment & Plan (08/09/2025 8:34 AM EST): Patient currently on levothyroxine 75 mcg daily for treatment of hypothyroidism. She notes good control however she has not had a TSH level in quite some time therefore we will obtain a TSH level. Assessment & Plan (05/03/2025 7:53 AM EDT): [...] dose. Mixed hyperlipidemia 12/21/2017 Assessment & Plan (08/09/2025 8:35 AM EST): Patient currently on atorvastatin 10 mg daily with great control of her cholesterol with her most recent LDL showing 94. She has been dieting and will's resume exercising after the first of the year as she obtained a treadmill and has had an injection for her back and is now feeling improved she also was recently cleared for her foot therefore she will be able to start exercising as well. We will follow- up in 3 months with a repeat lipid panel. She will continue atorvastatin 10 mg p.o. daily Assessment & Plan (05/03/2025 7:52 AM EDT): [...] weeks. Suspect elevation due to extensive dermatitis Anxiety 10/25/2024 05/03/2025 Assessment & Plan (01/25/2025 [...] Encounters Date Type Department Care Team Description 08/09/2025 8:00 AM EST Office Visit [facility] [address] [place] [address] Miguel Juan PA-C Acquired hypothyroidism (Primary Dx); Mixed hyperlipidemia; Impacted cerumen of left ear 08/03/2025 Orders Only [facility] Primary Care [facility] [address] [place] [address] Miguel Juan PA-C 07/24/[address] [facility] [address] [place] [address] Miguel Juan PA-C Forms & Paperwork (DCF Foster) 06/22/[address] [facility] [address] [place] [address] Naila Madison CNP Medication Refill 06/20/2025 6:31 PM EDT - 06/20/2025 11:59 PM EDT Hospital Encounter [facility], Ct Scan [facility] [address] [place] [address] Daniella Pink MD Discharge Disposition: Home or Self Care 06/07/2025 Procedure Pass [facility], Ct Scan [facility] [address] [place] [address] 06/07/2025 Transcribe Orders Virtual Department [address] [place] [address] Daniella Pink MD Chronic gout without tophus, unspecified cause, unspecified site (Primary Dx); Other chondrocalcinosis, unspecified site 06/06/[address] [facility] [address] [place] [address] Kristian Young MD 06/04/[address] [facility] [address] [place] [address] Miguel Juan PA-C Medication Refill 06/01/[address] [facility] [address] [place] [address] ProviderKristian MD 05/28/[address] [facility] [address] [place] [address] Ami Hoffman, LINDA Medication Refill from Last 3 Months Immunizations [...] Sign Reading Time Taken Comments Blood Pressure 116/64 08/09/2025 7:57 AM EST Pulse 70 08/09/2025 7:57 AM EST Temperature 36.3 C (97.3 F) 03/30/2025 1:03 PM EDT Respiratory Rate 16 08/09/2025 7:57 AM EST Oxygen Saturation 99% 08/09/2025 7:57 AM EST Inhaled Oxygen Concentration - - Weight 74.9 kg (165 lb 3.2 oz) 08/09/2025 7:57 A M EST Height 160 cm (5' 2.99 ) 08/09/2025 7:57 AM EST Body Mass Index 29.27 08/09/2025 7:57 AM EST Plan of Treatment Upcoming Encounters Date Type Department Care Team (Late st Contact Info) Description 11/13/2025 8:00 AM EDT Office Visit [facility] [address] [place] [address] Miguel Juan PA-C [address] [place] [address] [email or web address] Health Maintenance Due Date Last Done Comments COLOGUARD 2002 FIT TEST 2002 FOBT 2002 SIGMOIDOSCOPY 2002 VIRTUAL COLONOSCOPY 2002 COVID-19 VACCINE ( season) 2025 09/20/2020, 08/30/2020 TSH LEVEL 01/13/2026 01/13/2025, 12/22, 12/31/2023, Additional history exists DEPRESSION SCREENING 01/22/2026 01/22/2025 MAMMOGRAM 06/26/2027 06/26/2025, 11/2024, 08/19/2023, Additional history exists SCREENING FOR DIABETES 01/14/2028 , 08/19/2023, 01/08/2022, Additional history exists Adult Td,Tdap Booster 03/16/2030 03/16/2020 LIPID PANEL 08/02/2030 08/02/2025, 07/23, 08/02/2025, Additional history exists COLONOSCOPY 06/20/2031 06/20/2021, 06/20/2021 COLORECTAL CANCER SCREENING 06/20/2031 RSV VACCINE (1 - 1-dose 75+ series) 2032 PNEUMOCOCCAL VACCINES (50+ years) Completed 09/18/2022 ZOSTER VACCINES Completed 01/04/2023, 08/19/2022 INFLUENZA VACCINE Completed 05/03/2025, , 10/20/2023, Additional history exists HEPATITIS C SCREENING Completed 05/30/2025 , 01/09/2022, 01/08/2022 OSTEOPOROSIS SCREENING INITIAL (ONE-TIME) Completed 06/26/2025, 08/19/2023 SMOKING STATUS SCREENING (Once After 26 Yrs) Completed 08/09/2025 HEPATITIS A VACCINES Aged Out No long [...] Date/Time Associated Diagnosis Comments OUTSIDE LAB Routine 08/02/2025 11:46 AM EST OUTSIDE LDL Routine 08/02/2025 OUTSIDE TOTAL CHOLESTEROL Routine 08/02/2025 OUTSIDE HDL Routine 08/02/2025 OUTSIDE TRIGLYCERIDES Routine 08/02/2025 BD DXA MONITORING Routine 06/26/2025 8:5 3 [...] HEPATITIS C VIRUS SCREENING Routine 05/30/2025 OUTSIDE GLUCOSE FASTING Routine 01/13/2025 OUTSIDE TSH LEVEL Routine 01/13/2025 COLONOSCOPY FOR RESULT ENTRY ONLY Routine 06/20/2021 from Last 3 Months or Most Recently Relevant to Health Maintenance Results * Outside Lab (Non-MGB) (08/02/2025 11:46 AM EST) Only the most recent of3 resultswithin the time period is included. [facility] Provider MD LAB BLOOD BKR ORDERABLES Final Result * Outside Triglycerides (08/02/2025) Triglycerides - External 96 35 - 150 mg/dL Result [facility] Provider MD LAB BLOOD ORDERABLES Loren l Result * Outside LDL (08/02/2025) LDL - External 94 50 - 250 mg/dL Result [facility] Provider MD LAB BLOOD ORDERABLES Loren l Result * Outside Total Cholesterol (08/02/2025) Cholesterol, total - External 176 <=200 mg/dL Result [facility] Provider MD LAB BLOOD ORDERABLES Loren l Result * Outside HDL (08/02/2025) HDL - External 63 40 - 80 mg/dL Result [facility] Provider MD LAB BLOOD ORDERABLES Loren l Result * CT ANKLE WITHOUT CONTRAST (RIGHT) (06/20/2025 [...] ankle was performed per the CT scan brick veneer maker proprietary protocol. 3D images were created on [...] and ankle was performedper the CT scan brick veneer maker proprietary protocol. 3D images were createdon an [...] the insertional Achilles tendon, may representtendinosis. Result [facility] Daniella Pink MD IMG CT EXTREMIT Y Final Result * Outside Hepatitis C Virus Screening (05/30/2025) Pathologist [facility] Hepatitis C Screening - External Neg Result [facility] Provider LAB BLOOD ORDERABLES Loren l Result * Outside Potassium Level (05/30/2025) [facility] Potassium level - External 4.5 3.4 - 5.0 mmol/L Result [facility] Provider LAB BLOOD ORDERABLES Loren l Result * Outside Serum Creatinine Level (05/30/2025) [facility] Creatinine, serum - External 0.88 0.8 - 1.3 mg/dL Result [facility] Provider LAB BLOOD ORDERABLES Loren l Result * (ABNORMAL) Outside ALT Level (05/30/2025) [facility] ALT - External 31(A) 5 - 30 U/L Result [facility] Provider LAB BLOOD ORDERABLES Loren l Result * Outside TSH Level (01/13/2025) [facility] TSH - External 0.61 0.5 - 5 uIU/L Result [facility] Provider LAB BLOOD ORDERABLES Loren l Result * Outside Glucose,Fasting (01/13/2025) [facility] Glucose, fasting - External 96 65 - 99 mg/dL Result [facility] Provider LAB BLOOD ORDERABLES Loren l Result * HM MAMMOGRAPHY FOR RESULT ENTRY ONLY (08/26/2024 10:07 AM EST) us Historical Provider HEALTH MAINTENANCE Edited Result - Final * DXA Screening (08/19/2023 10:27 AM EST) Anatomical Region Laterality Modality Bone Density Bone Density Rachna Bernard NP IMG BD BONE DENSITY DEXA Final Result * HM COLONOSCOPY FOR RESULT ENTRY ONLY (06/20/2021) Historical Provider HEALTH MAINTENANCE Edited Result - Final from Last 3 Months or Most Recently Relevant to Health Maintenance Insurance [employer] Care Teams Detective Investigator Relationship Specialty Start Date End Date Miguel Juan PA-C [address] [place] [address] [email or web address] PCP - General Physician Lease Administrator 10/16/24 Additional Source Comments The information contained in this document represents components of the legal health record. It is not the complete legal health record.[facility]
--- OUTSIDE RECORDS SUMMARY | 2025-08-17 10:56 | XMS_ITS | Encounter Summary ---
Author Organization [facility] Address [address] [address] [place] [address] Phone Care Team Providers Care Remote Broadcast Technician Name Role Phone Rachna Bernard PSYCHIATRIST Primary Care Provider [phone] Ami Hoffman Primary Care Provider Miguel Juan PA-C Primary Care Provider [phone] Encounter Details Date Type Department Care Team (Late st Contact Info) Description 06/21/2023 Nurse Triage [facility] [address] [place] [address] Rachna Bernard, PSYCHIATRIST [address] [facility] [address] [place] [address] [email or web address] Social History Tobacco Use Types Packs/Day [...] high school, GED, job training, learning the Bulgarian language, technical skills, or developing parenting skills)? [...] SOB Protocols used: CORONAVIRUS (COVID-19) DIAGNOSED OR [id number] Nurse Triage Encounter Note Reason for Triage Yahaira Jaeger contacted office for None Call Disposition Home Care Patient/caregiver understands and will follow disposition: Unsure Patient/caregiver understands and will follow care advice: Disposition Comments: Protocols used: Coronavirus (Covid-19) Diagnosed Or Loyaeymtl-Riedr-Ne Initial Symptom Screening and Assessment [place] None [...] either acetaminophen or ibuprofen. * They are yhao-lbj-gjnrxwd (OTC) drugs that help treat both fever [...] Description 11/13/2025 8:00 AM EDT Office Visit [facility] [address] [place] [address] Miguel Juan PA-C [address] [place] [address] [email or web address] documented as of this encounter Visit Diagnoses Not on filedocumented in this encounter Additional Health Concerns Infection Onset Date Last Indicated Resolved Time CoV-Risk 07/01/2024 07/01/202407/1207/12/2024 1:21 AM EST Assessment Noted Time PHQ-2 Depression Total Score: 0 08/18/20 22 3:41 PM EST documented as of this encounter Care Teams Remote Broadcast Technician Relationship Specialty Start Date End Date Rachna Bernard PSYCHIATRIST PCP - General Family Medicine 08/18/17 11/17/23 Ami Hoffman FNP [address] [address] PCP - General Nurse Practitioner 11/18/23 10/15/24 Miguel Juan PA-C [address] [place] [address] PCP - General Physician Um Rn 10/16/24 documented as of this encounter Additional Source Comments The information contained in this document represents components of the legal health record. It is not the complete legal health record.[facility]
--- OUTSIDE RECORDS SUMMARY | 2025-08-17 10:56 | XMS_ITS | Data Portability ---
Author Organization [facility] - Dion Coy [facility], [facility] Address [address] [place] [address] Care Team Providers Care Dean Of Men Name Role Phone Miguel Juan Primary Care Provider Assessment Encounter Date Assessment [...] distally. X-rays ordered, obtained and reviewed at [facility]: 5 views of the right ankle [...] condition, to please contact our office immediately. [email or web address] Not available 03/21/2025 12:13:09 Plan of Treatment Reminders Order Date Submit Date Provider Name Organization Details Last Modified By Last Modified Time Details Appointments None record ed. Lab None record ed. Referral None record ed. Procedures None record ed. Surgeries None record ed. Imaging XR, ankle + foot 2024 09:05: 30 025 REGINO Forrest Office [address],[facility] [address], [place], [address], [facility] 5 14:31:43 MedicationOrder s meloxi cam 15 mg tablet 2024 09:43: 00 [facility] [address] [facility], [address], Ph [phone] Not Available Not available 5 09:55:20 Take 1 tablet every day by oral route after meal(s). VaccineOrders None record ed. Patient TargetsNo targets recorded. Patient InstructionsNo instructions recorded. Reason for Referral None Reported. Results Created Date Observation Date Name Description Value Unit Range Abnormal Flag Specimen Type Note LastModifiedBy Organization Detail LastModifiedTime 03/21/2025 03/21/2025 ankle+foot [email or web address]=mjHrEqkUZ3tQlwKBf5c%5QDBctIkcmk8arbq%9Ni9PPf9 khZjhD4sMuCPgzlIc6FcSMDmUmhGDD0zXhTEmgs57d9425YW6Cxqb9QApFiIxZenYaV Not Available [facility] , [address],[facility] [address] , [place] , [address], , 03/21/2025 09:26:06 03/21/2025 03/21/2025 ankle+foot [email or web address]=enLsEkjYY9qCcoWVl6e%8BPOyjXfptm0yjeu%6Lq2XLk4 zkDwtD7aMiTQsduBm4SeXABkVhqANZ3fUkOJkxa84u5506JS0Ydvs3NOpKoUkIooGdY Not Available [facility] , [address] [facility] [address] , [place] , [address], , 03/21/2025 09:26:07 Result Notes Documentation Provider Name and Address Organization Details Recorded Time Xr, Ankle + Foot : [email or web address] Encrypted=kiXwBobTN6eCzuE Uv6g%3YCZxgObzic7ikyb%2Fg 9DIi9rtFazJ6aLxNIpucMb6Or RPCgVsgWZU6nZeNSnth39a475 1KD6Rffr5VXuIwFiTzfNeS Not Available [facility] 03/21/2025 09:26: 06 Xr, Ankle + Foot : [email or web address] Encrypted=aaAhDhrIY6hHdeM Uv6g%9MOSxzLpxhe9klhm%2Fg 5LTa5flGtnE8xFzYAhipXf4Is VUFyFixADD3qNyZDngs74z203 6TG2Nzfz6QInPlSwDvxOlI Not Available [facility] 03/21/2025 09:26: 07 Problems Name Problem SNOMED Code Status Onset Date Resolution Date Notes Provider Name and Address Organization Details Recorded Time No complaints 601094125 Active Status : 'I'; Not Available [facility] 4 09:15:44 Pain in right foot 7932550731220 07 Active 2024 JESUS watters [place] - [facility] 5 09:04:59 Problem Notes None recorded. Medical Equipment None Reported. Allergies Allergen ID Allergen Name Allergen Category Reaction Reaction Severity Criticality Documentation Date Start Date Code Code System Note Provider Name and Address Organization Details Recorded Time 53495 Substance with sulfonami de structure and antibacte rial mechanism of action (substanc e) medicatio n Not available Not available Not available 10/25/20232009 19155 8003 SNOMED Aller gyRea ction : 'Skin React ion'; Not Available [facility] 4 13:40:21 31129 wheat gluten extract food Not available Not available Not available 10/25/20232009 80893 81 RxNorm Not Available [facility] 4 13:40:22 67621 codeine medicatio n Not available Not available Not available 10/25/20232022 2670 RxNorm Not Available [facility] 4 13:40:22 88259 Product containin g penicilli n (product) medicatio n Not available Not available Not available 10/25/20232022 81830 8001 SNOMED Not Available [facility] 4 13:40:22 Medications Name Authored On Sig Start Date Stop Date Status Note Indication Fill Status Repeat Number Dispense Quantity LastModified by Organization Details LastModified Time ibupr ofen 4 17:54:03 ibup rofe n 200m g Tabl et 2014 active Statu s: 'Curr ent'; Not Available Not availab le 0 Not Available Not Available [facility] 10/25/2023 17:54:03 ranit idine HCl 4 17:54:03 Bridget TIdi ne HCl 300M G Tabl et 03/21 aborted Statu s: 'Curr ent'; Not Available Not availab le 0 Not Available KAYLIA L'HEUREUX [facility] 03/21/2025 09:00:35 levot hyrox ine 5 09:00:48 active Not Available Not availab le 0 Not Available KAYLIA L'HEUREUX [facility] 03/21/2025 09:00:48 atorv astat in 10 mg table t 5 09:01:15 Take 1 tabl et ever y day by oral rout e. active Not Available Not availab le 0 Not Available KAYLIA L'HEUREUX [facility] 03/21/2025 09:01:15 aspir in 5 09:01:22 active Not Available Not availab le 0 Not Available KAYLIA L'HEUREUX [facility] 03/21/2025 09:01:22 omepr azole 5 09:01:28 active Not Available Not availab le 0 Not Available KAYLIA L'HEUREUX [facility] 03/21/2025 09:01:28 lidoc angella 5 09:01:38 active Not Available Not availab le 0 Not Available KAYLIA L'HEUREUX [facility] 03/21/2025 09:01:38 prami pexol e 0.5 mg table t 5 09:02:24 Take 1 tabl et 3 time s a day by oral rout e. active Not Available Not availab le 0 Not Available KAYLIA L'HEUREUX [facility] 03/21/2025 09:02:24 melox icam 15 mg table t 5 09:43:00 Take 1 tabl et ever y day by oral rout e afte r meal (s). complet ed Peroneal tendinitis of right lower limb Not availab le 0 Not Available Not Available [facility] 03/21/2025 09:55:20 Vitals Date Recorded Body height Body mass index (BMI) Body weight Provider Name and Address Organization Details Last Updated DateTime 03/21/2025 160.02 cm 29.2 kg/m2 80927.74 g JESUS HOLLY [facility] 03/21/2025 09:00:15 Social History Question Answer Notes LastModified by Organizat ion Details LastModified Time Tobacco Smoking Status Never Smoker JESUS BULLX [facility] 03/21/2025 09:02:42 What Is Your Level Of Alcohol Consumption? None JESUS HERNANDEZEUX [facility] 03/21/2025 09:02:42 What is your relationship status? Single JESUS BULLX [facility] 03/21/2025 09:02:45 Social History Observation Description Date Observed Sex Unknown 06/23/2025 Legal Sex Female Status Not (finding) 08/17/20 25 No social history survey screeners recorded No social history SDOH screeners recorded Functional Status Question Answer Note LastModified by Organizat ion Details LastModified Time Do you or have you ever used any other forms of tobacco or nicotine? No JESUS HERNANDEZEUX [facility] 03/21/2025 09:02:42 What is your level of alcohol consumption? None JESUS HERNANDEZEUX [facility] 03/21/2025 09:02:42 Do you use any illicit or recreational drugs? No JESUS OrtizHEUREUX [facility] 03/21/2025 09:02:42 No Functional Screening assessment recorded No Functional SDOH screeners recorded Mental Status None recorded. No Mental Screening assessment recorded No Mental SDOH screeners recorded Family History Nothing Reported. Medical History Condition [...] ICD10 Code Diagnosis IMO Codes Diagnosis Note [id number] [place] Lowry PA-C SELINA - [place] [address] [place] [address] 03/21/2025 08:33:31 03/30/2025 14:31:43 Pain in right foot 0161872568 61614 M79.671 094888 Peroneal t endinitis of right lower limb 5424390767 15949 M76.71 0674448 I am prescribin g this patient oral [...] by Organization Details LastModified Time None Recorded SDOH Concern Status LastModified by Organization [facility] LastModified Time None Recorded Advance Directives Directive None Recorded Payers Insurance Date Sequence Insurance Name Policy Number Policy Benitez Covered Member ID Benitez Member ID Guarantor Name 05/21/2025 1 [employer] [place] [id number] Yahaira Jaeger [id number] Yahaira Jaeger Care Team Name Role Member ID Specialty Address Phone MIGUEL CAN Primary Care Provider [id number] [address] [place] [address], [place] [phone] OBGyn Episode No OBEpisode recorded.
== END ==
LOC: HO.NUCMED 10:52
PROVIDERS: PCP Physician Assistant Surgical; Visit Provider Student in an Organized Health Care Education/Training Program
DX: E21.3 Hyperparathyroidism, unspecified (principal); E34.9 Endocrine disorder, unspecified
CPT/HCPCS: 78072; A9500

== ENCOUNTER → 2025-08-17 10:54 | Outpatient (BNV) | payer OTHER, SELFPAY | PROVIDERS: PCP Physician Assistant Surgical; Visit Provider Radiology Diagnostic Radiology | DX: E21.3 Hyperparathyroidism, unspecified (principal) | CPT/HCPCS: 78072 ==